=== PATIENT | female | born 1965 | race Caucasian/White ===

== ENCOUNTER 2024-06-27 08:44 | Emergency (ER) | payer MEDICARE, MEDICAID, SELFPAY ==
[2024-06-27 08:54] VITALS: BP 158/73; PULSE 81; RESP 16; TEMP 36.7; O2SAT 98
--- NOTE | 2024-06-27 08:59 | ED.FEMALEGU ---
HPI - Female Genitourinary General Chief complaint: Urogenital-Female Stated complaint: Urinary Problem Time Seen by Provider: 06/27/24 09:13 Source: patient and RN notes reviewed Mode of arrival: ambulatory Limitations: no limitations History of Present Illness HPI Narrative: 58 year old female presents with concern for 4 day history of urinary tract infection symptoms. Reports burning with urination. She reports history of urinary tract infections. She reports nausea without vomiting. She reports headache. She reports low back pain. She denies abdominal pain, fever. MD elicited complaint: UTI Related Data Home Medications ?Medication ?Instructions ?Recorded ?Confirmed ?Last Taken ?Type albuterol sulfate 90 mcg/actuation inhalation 06/27/24 Unknown History aerosol inhaler azelastine 137 mcg (0.1 %) nasal intranasal 06/27/24 Unknown History spray buspirone 7.5 mg tablet mg 06/27/24 Unknown History cetirizine 10 mg tablet mg 06/27/24 Unknown History famotidine 20 mg tablet mg 06/27/24 Unknown History fluticasone propionate 50 intranasal 06/27/24 Unknown History mcg/actuation nasal spray,suspension furosemide 20 mg tablet mg 06/27/24 Unknown History insulin glargine 100 unit/mL (3 unit subcut 06/27/24 Unknown History mL) subcutaneous pen (Lantus Solostar U-100 Insulin) lactulose 10 gram/15 mL oral 06/27/24 Unknown History solution levothyroxine 50 mcg tablet mcg 06/27/24 Unknown History melatonin 5 mg tablet mg 06/27/24 Unknown History metformin 1,000 mg tablet mg 06/27/24 Unknown History nadolol 20 mg tablet mg 06/27/24 Unknown History pantoprazole 40 mg tablet,delayed mg PO 06/27/24 Unknown History release pramipexole 0.5 mg tablet mg 06/27/24 Unknown History rifaximin 550 mg tablet (Xifaxan) mg 06/27/24 Unknown History semaglutide 0.25 mg or 0.5 mg (2 mg subcut 06/27/24 Unknown History mg/3 mL) subcutaneous pen injector (Ozempic) spironolactone 100 mg tablet mg 06/27/24 Unknown History Allergies Allergy/AdvReac Type Severity Reaction Status Date / Time hydrocodone Allergy Unknown Verified 04/15/20 09:00 tramadol Allergy Unknown Verified 04/15/20 09:00 Review of Systems Review of Systems: CONSTITUTIONAL: Denies malaise, chills, sweats, or fever. CARDIOVASCULAR: Denies chest pain, palpitations, or edema. RESPIRATORY: Denies cough or dyspnea. GASTROINTESTINAL: Denies abdominal pain, nausea, vomiting, diarrhea GENITOURINARY: Reports dysuria. Denies flank pain or hematuria. SKIN: Denies rash or itching. MUSCULOSKELETAL: Reports back pain. Denies myalgia. All systems reviewed & are unremarkable except as noted in HPI and below PMFSH Family History Family History (System 04/15/20 @ 09:00 by Betina Mclaughlin) Mother Hypertension Grandparent Diabetes mellitus Sibling Family history of thyroid disease Other Asthma Cerebrovascular accident Depression Family history of arthritis Family history of heart disease in male family member before age 55 Social History Social History (System 04/15/20 @ 09:00 by Betina Mclaughlin) Smoking status: Never smoker Second hand tobacco smoke exposure: Yes Alcohol intake: current Comments At time of signature, agree with nursing past medical, surgical, social and family history. There is no relevant family history pertinent to the presenting complaint Exam Narrative: GENERAL: Well-appearing, well-nourished, and in no acute distress. HEAD: Normocephalic. EYES: PERRLA, conjunctivae clear. NECK: Supple. No lymphadenopathy CHEST: Clear to auscultation. No respiratory distress. HEART: Regular rate and rhythm. ABDOMEN: Soft, nontender upon palpation, nondistended, normal active bowel sounds, no palpable or pulsatile masses, no guarding. Bilateral CVA tenderness SKIN: Warm, dry, no rash. NEURO: Alert and oriented x3. PSYCH: Normal mood and affect Course Course Emergency Course: Patient is aware of diagnosis, understands and agrees to treatment plan. Anticipatory guidance given. Patient agrees to follow-up as directed and is aware of reasons to seek care at the emergency department. Portions of this record may have been created with voice recognition software Level of Care: Express Care Visit Vital Signs Vital signs: Vital Signs Temperature 98.0 F 06/27/24 08:54 Pulse Rate 81 06/27/24 08:54 Respiratory Rate 16 06/27/24 08:54 Blood Pressure 158/73 H 06/27/24 08:54 Pulse Oximetry 98 06/27/24 08:54 Oxygen Delivery Room Air 06/27/24 08:54 Temperature 98.0 F 06/27/24 08:54 Pulse Rate 81 06/27/24 08:54 Respiratory Rate 16 06/27/24 08:54 Blood Pressure 158/73 H 06/27/24 08:54 Pulse Oximetry 98 06/27/24 08:54 Oxygen Delivery Room Air 06/27/24 08:54 Reviewed. MDM - Female Genitourinary MDM Narrative Medical decision making narrative: Exam findings and UA show no acute concerns or changes; patient is non-toxic appearing and is in no distress. Patient is appropriate for outpatient treatment and follow-up. Differential Diagnosis Differential diagnosis: Likely urinary tract infection and cystitis Critical Care Time Critical Care Time Critical Care Time: No Discharge Plan Discharge Clinical Impression: Urinary tract infection Patient Disposition: Home Condition: Stable Instructions: Antibiotic Form, Urinary Tract Infection in Women (ED) Additional Instructions: We will send a urine culture to the lab; if the culture identifies an organism that the prescribed antibiotic will not treat, you will receive a phone call from an urgent care staff member and an appropriate antibiotic will be prescribed. -Your symptoms should begin to improve within a day of starting antibiotics. But you should finish all the antibiotic pills you get. Otherwise your infection might come back. -Also recommend: increase water intake. Tylenol/ibuprofen as needed for pain or fever -Follow-up with your primary care provider for urine recheck or seek ER visit if condition worsens with high fever, nausea, vomiting and severe back pain. Patient Language: Upper Sorbian Prescriptions: New ciprofloxacin HCl 500 mg tablet 500 mg PO Q12H 5 Days Qty: 10 0RF No Action cetirizine 10 mg tablet spironolactone 100 mg tablet pramipexole 0.5 mg tablet nadolol 20 mg tablet famotidine 20 mg tablet levothyroxine 50 mcg tablet pantoprazole 40 mg tablet,delayed release (DR/EC) PO metformin 1,000 mg tablet buspirone 7.5 mg tablet furosemide 20 mg tablet azelastine 137 mcg (0.1 %) spray,non-aerosol INTRANASAL albuterol sulfate 90 mcg/actuation HFA aerosol inhaler INHALATION fluticasone propionate 50 mcg/actuation spray,suspension INTRANASAL lactulose 10 gram/15 mL solution insulin glargine [Lantus Solostar U-100 Insulin] 100 unit/mL (3 mL) insulin pen SUBCUT melatonin 5 mg tablet Xifaxan 550 mg tablet Ozempic 0.25 mg or 0.5 mg (2 mg/3 mL) pen injector SUBCUT Follow-up/Referrals: UNKNOWN,DOCTOR [Primary Care Provider] - Time of Disposition: 09:19
--- OUTSIDE RECORDS SUMMARY | 2024-06-27 08:59 | XMS_ITS | Encounter Summary ---
Author Organization [facility] Address [address] [place] [address] Phone Care Team Providers Care Drive Tester Name Role Phone Vaughn Bradshaw MD Primary Care Provider [phone] Claudia Horn APRN Unavailable Vicenta Raymond DO Unavailable Gus Chowdary MD Unavailable Kasey Williamson DO Primary Care Provider [phone] Virginie Reyes RN Unavailable Unavailable Virginie Reyes RN Unavailable Unavailable Virginie Reyes RN Unavailable Unavailable Kelley Lopez PUBLIC AREA ATTENDANT, RECEIVING TELLER Unavailable [phone]- [phone] Reason for Visit * Reason Comments Medication Refill Encounter Details Date Type Department Care Team (Late st Contact Info) Description 06/18/2021 Refill [facility]2 [place] [address] Vaughn Bradshaw MD #1 [place] [address] Medication Refill Social History Tobacco Use Types Packs/Day Years Used Date Smoking Tobacco: Never Smokeless Tobacco: Never Alcohol Use Standard Drinks/Week Comments No 0 (1 standard drink = 0.6 oz pur e alcohol) PHQ-2 Answer Date Recorded Total Score - Questions 1-9 0 09/19 Education Answer Date Recorded What is the highest level of school you have completed or the highest degree you have received? Associate degree: academic program 10/01/2020 Sexually Active Control Partners Comments Not Currently Male Comments No Sex and Gender Information Value Date Recorded Sex Assigned at Not on file Legal Sex Female 10:13 AM CDT Gender Identity Not on file Sexual Orientation Not on file Occupation Industry Job Start Date Job End Date Disabled Not on file Not on file Not on file COVID-19 Exposure Response Date Recorded In the last 10 days, have yo u been in contact with someone who was confirmed or suspected to have Coronavirus/COVID-19? No / Unsure 06/19/2021 10:33 AM CDT documented as of this encounter Miscellaneous Notes * Telephone Encounter - Maria T Alejandre RN - 06/18/2021 1:09 PM CDT Medication warning Per nursing clinical judgement, provider to review and approve the medication(s) order(s) if appropriate. Requested Prescriptions Pending Prescriptions Disp Refills triamterene-hydrochlorothiazide (MAXZIDE) 75-50 MG Tablet [Pharmacy Med Name: TRIAMTERENE 75MG/ HCTZ 50MG TABLETS] 45 Tablet 0 Sig: TAKE 1/2 TABLET BY MOUTH DAILY Diuretics Protocol Passed - 06/18/2021 3:55 AM Passed - Serum potassium on record in past 12 months POTASSIUM Date Value Ref Range Status 02/21/2021 3.8 3.5 - 5.1 mmol/L Final Passed - Serum sodium on record in past 12 months SODIUM Date Value Ref Range Status 02/21/2021 139 136 - 144 mmol/L Final Passed - Blood pressure on record in past 12 months Clinician-entered: BP Readings from Last 3 Encounters: 03/31/21 (!) 154/92 03/03/21 150/85 02/24/21 132/58 Patient-entered: No data recorded Passed - Visit with relevant provider in past 12 months or upcoming 90 days Recent Visits Date Type Provider Dept 04/21/21 Telemedicine Monae Jorgensen APRN, RECEIVING TELLER [facility] 02/24/21 Office Visit Vaughn Bradshaw MD [facility] 01/20/21 Office Visit Vaughn Bradshaw MD [facility] 12/09/20 Office Visit Vaughn Bradshaw MD [facility] 11/28/20 Telemedicine Vaughn Bradshaw MD [facility] 10/03/20 Office Visit Vaughn Bradshaw MD [facility] Showing recent visits within past 365 days and meeting all other requirements Future Appointments No visits were found meeting these conditions. Showing future appointments within next 90 days and meeting all other requirements Passed - GFR on record in past 12 months GFR, EST. NONAFRICAN Date Value Ref Range Status 02/21/2021 52 (L) >=60 Final citalopram (CeleXA) 20 MG Tablet [Pharmacy Med Name: CITALOPRAM 20MG TABLETS] 90 Tablet 1 Sig: TAKE 1 TABLET BY MOUTH DAILY Citalopram (Celexa) (6 Month Refill Only) Protocol Passed - 06/18/2021 3:55 AM Passed - Citalopram dose is less than or equal to 40mg / day Passed - Visit with relevant provider in past 6 months or upcoming 90 days Recent Visits Date Type Provider Dept 04/21/21 Telemedicine Monae Jorgensen APRN, [facility] 02/24/21 Office Visit Vaughn Bradshaw MD [facility] 01/20/21 Office Visit Vaughn Bradshaw MD [facility] Showing recent visits within past 182 days and meeting all other requirements Future Appointments No visits were found meeting these conditions. Showing future appointments within next 90 days and meeting all other requirements Passed - Patient has established therapy with Citalopram for at least 6 months Passed - Has an encounter in the past 6 months with a depression, anxiety, adjustment disorder, OCD, or PTSD visit diagnosis documented in this encounter Plan of Treatment Not on file documented as of this encounter Visit Diagnoses Diagnosis Anxiety and depression Dysthymic disorder documented in this encounter Additional Health Concerns Infection Onset Date Last Indicated Resolved Time COVID - 19 01/14/2022 01/14/2022 01/15/2022 7:59 AM CDT Respiratory Rule-Out 01/14/2022 01/14/2022 022 8:08 AM CDT COVID - 19 11/15/2023 11/15/2023 11/15/2023 11:4 7 PM CDT Assessment Noted Time PHQ-9 Depression Total Score: 0 10/04/19 9:00 AM CDT documented as of this encounter Care Teams Drive Tester Relationship Specialty Start Date End Date Vaughn Bradshaw MD PCP - General Family Medicine 05/18/18 08/26/23 Kasey Williamson DO 2 [facility] FER [facility] [address] [place] [address] PCP - General Family Medicine 09/14/23 Claudia Horn APRN [address] [place] [address] Advanced Practice Nurse 08/16/18 Vicenta Raymond DO [facility] [address] [place] [address] Consulting Physician Obstetrics & Gynecology 09/25/21 Gus Chowdary MD #2 [facility] [address] [place] [address] Consulting Physician Colon and Rectal Surgery 07/23/22 Virginie Reyes, RN [place] Nurse Stogy Maker 09/14/23 09/14/23 Virginie Reyes, RN [place] Nurse Stogy Maker 11/19/23 11/29/23 Virginie Reyes, RN [place] Nurse Stogy Maker 12/07/23 05/15/24 Kelley Lopez APRN, RECEIVING TELLER #2 [facility] [address] [place] [address] Nurse Practitioner Advanced Practice Nurse 12/09/23 02/22/24 documented as of this encounter
--- OUTSIDE RECORDS SUMMARY | 2024-06-27 08:59 | XMS_ITS | Encounter Summary ---
Author Organization [facility] Address [address] [place] [address] Phone Care Team Providers Care License Examiner Name Role Phone Vaughn Bradshaw MD Primary Care Provider [phone] Claudia Horn APRN Unavailable Vicenta Raymond DO Unavailable Gus Chowdary MD Unavailable Kasey Williamson DO Primary Care Provider [phone] Virginie Reyes RN Unavailable Unavailable Virginie Reyes RN Unavailable Unavailable Virginie Reyes RN Unavailable Unavailable Kelley Lopez BREAST BUFFER, GELATIN DYNAMITE PACKING OPERATOR Unavailable [phone] Reason for Visit * Reason Comments Medication Refill Encounter Details Date Type Department Care Team (Late st Contact Info) Description 04/18/2023 Refill [facility] [address] [place] [address] Monae Jorgensen APRN, GELATIN DYNAMITE PACKING OPERATOR [address] [address] Medication Refill Social History Tobacco Use Types Packs/Day Years Used Date Smoking Tobacco: Never Smokeless Tobacco: Never Alcohol Use Standard Drinks/Week Comments No 0 (1 standard drink = 0.6 oz pur e alcohol) [facility] Utilities Answer Date Recorded In the past 12 months has th e electric, gas, oil, or water company threatened to shut off services in your home? Yes 03/21/2023 Social Connection and Isolat ion Panel [NHANES] Answer Date Recorded In a typical week, how many times do you talk on the phone with family, friends, or neighbors? More than three times a week 03/21/2023 How often do you get togethe r with friends or relatives? More than three times a week 03/21/2023 How often do you attend chur ch or hoahaoism services? Never 03/21/2023 Do you belong to any clubs o r organizations such as confucianist groups, unions, fraternal or athletic groups, or school groups? No 03/21/2023 How often do you attend meet ings of the clubs or organizations you belong to? Never 03/21/2023 Are you , , di vorced, , never , or living with a partner? 03/21/2023 AUDIT-C Answer Date Recorded Q1: How often do you have a drink containing alcohol? Never 03/21/2023 Q2: How many drinks containi ng alcohol do you have on a typical day when you are drinking? Patient does not drink Q3: How often do you have si x or more drinks on one occasion? Never 03/21/2023 Overall Financial Resource Strain (CARDIA) Answe r Date Recorded How hard is it for you to pa y for the very basics like food, housing, medical care, and heating? Not very hard 03/21/2023 PHQ-2 Answer Date Recorded Total Score - Questions 1-9 2 04/2023 [facility] of Occupat ional Health - Occupational Stress Questionnaire Answer Date Recorded Do you feel stress - tense, restless, nervous, or anxious, or unable to sleep at night because your mind is troubled all the time - these days? To some extent 03/21/2023 Exercise Vital Sign Answer Date Recorde d On average, how many days pe r week do you engage in moderate to strenuous exercise (like a brisk walk)? 0 days 03/21/2023 On average, how many minutes do you engage in exercise at this level? 0 min 03/21/2023 Hunger Vital Sign Answer Date Recorded Within the past 12 months, y ou worried that your food would run out before you got the money to buy more. Sometimes true Within the past 12 months, t he food you bought just didn't last and you didn't have money to get more. Sometimes true PRAPARE - Transportation Answer Date Re corded In the past 12 months, has l ack of transportation kept you from medical appointments or from getting medications? Yes 02/21 In the past 12 months, has l ack of transportation kept you from meetings, work, or from getting things needed for daily living? No 03/21/2023 Housing Stability Vital Sign Answer Jose e Recorded In the last 12 months, was t here a time when you were not able to pay the mortgage or rent on time? No 03/21/2023 In the last 12 months, how many places have you lived? 1 03/21/2023 In the last 12 months, was t here a time when you did not have a steady place to sleep or slept in a snf (including now)? No 03/21/2023 Education Answer Date Recorded What is the highest level of school you have completed or the highest degree you have received? Associate degree: academic program 10/01/2020 Sexually Active Control Partners Comments Not Currently Surgical Male Comments No Sex and Gender Information Value Date Recorded Sex Assigned at Not on file Legal Sex Female 10:13 AM CDT Gender Identity Not on file Sexual Orientation Not on file Occupation Industry Job Start Date Job End Date Disabled Not on file Not on file Not on file documented as of this encounter Miscellaneous Notes * Telephone Encounter - Maria T Alejandre RN - 04/19/2023 10:50 AM CST Images from the original note were not included. FLUoxetine HCl Dispensed Days Supply Quantity Provider Pharmacy FLUOXETINE 20MG CAPSULES 03/01/2023 90 90 Each Monae Jorgensen APRN, GELATIN DYNAMITE PACKING OPERATOR [facility] #... GATION ATTORNEY ASSOCIATE documented in this encounter Plan of Treatment Not on file documented as of this encounter Visit Diagnoses Diagnosis Moderate episode of recurrent major depressive disorder (HCC) documented in this encounter Additional Health Concerns Infection Onset Date Last Indicated Resolved Time COVID - 19 11/15/2023 11/15/2023 11/15/2023 11:4 7 PM CDT Assessment Noted Time PHQ-9 Depression Total Score: 2 03/23/19 24 8:19 AM LITIGATION ATTORNEY ASSOCIATE documented as of this encounter Care Teams License Examiner Relationship Specialty Start Date End Date Vaughn Bradshaw MD PCP - General Family Medicine 05/18/18 08/26/23 Kasey Williamson DO 2 [email or web address] FER [facility]. [address] [place] [address] PCP - General Family Medicine 09/14/23 Claudia Horn APRN [address] [place] [address] Advanced Practice Nurse 08/16/18 Vicenta Raymond DO [facility] [address] [place] [address] Consulting Physician Obstetrics & Gynecology 09/25/21 Gus Chowdary MD #[address] [facility] [address] [place] [address] Consulting Physician Colon and Rectal Surgery 07/23/22 Virginie Reyes, FAYE [place] Nurse Software Product Manager 09/14/23 09/14/23 Virginie Reyes, RN [place] Nurse Software Product Manager 11/19/23 11/29/23 Virginie Reyes, RN [place] Nurse Software Product Manager 12/07/23 05/15/24 Kelley Lopez APRN, GELATIN DYNAMITE PACKING OPERATOR #2 [facility] [address] [place] [address] Nurse Practitioner Advanced Practice Nurse 12/09/23 02/22/24 documented as of this encounter
--- OUTSIDE RECORDS SUMMARY | 2024-06-27 08:59 | XMS_ITS | Encounter Summary ---
Author Organization [facility] Address [address] [place] [address] Phone Care Team Providers Care Soil Technician Name Role Phone Vaughn Bradshaw MD Primary Care Provider [phone] Claudia Horn APRN Unavailable Vicenta Raymond DO Unavailable Gus Chowdary MD Unavailable Kasey Williamson DO Primary Care Provider [phone] Virginie Reyes RN Unavailable Unavailable Virginie Reyes RN Unavailable Unavailable Virginie Reyes RN Unavailable Unavailable Kelley Lopez PRESCHOOL ASSISTANT, COMMERCIAL OR INSTITUTIONAL CLEANER Unavailable [phone] Reason for Visit * Reason Comments Medication Refill Encounter Details Date Type Department Care Team (Late st Contact Info) Description 02/27/2021 Refill [facility] #2 [place] [address] Vaughn Bradshaw MD #[address] [place] [address] Medication Refill Social History Tobacco Use Types [...] Exposure Response Date Recorded In the last month, have you been in contact with someone who was confirmed or suspected to have Coronavirus / COVID-19? No / Unsure 02/24/2021 1:00 PM COLLEGE ARCHIVIST documented as of this encounter Miscellaneous Notes * Telephone Encounter - Maria T Alejandre RN - 02/28/2021 8:15 AM CST Medication failed the protocol, provider to review and approve the medication order if appropriate. Requested Prescriptions Pending Prescriptions Disp Refills busPIRone HCl 7.5 MG Tablet [Pharmacy Med Name: BUSPIRONE 7.5MG TABLETS] 180 Tablet 2 Sig: TAKE 1 TABLET(7.5 MG) BY MOUTH TWICE DAILY Buspirone (6 Month Refill Only) Protocol Failed - 02/27/2021 3:55 AM Failed - Patient has established therapy with Buspirone for at least 6 months Passed - Visit with relevant provider in past 6 months or upcoming 90 days Recent Visits Date Type Provider Dept 02/24/21 Office Visit Vaughn Bradshaw MD [facility] 01/20/21 Office Visit Vaughn Bradshaw MD [facility] 12/09/20 Office Visit Vaughn Bradshaw MD [facility] 11/28/20 Telemedicine Vaughn Bradshaw MD [facility] 10/03/20 Office Visit Vaughn Bradshaw MD [facility] Showing recent visits within past 182 days and meeting all other requirements Future Appointments Date Type Provider Dept 04/22/21 Appointment Vaughn Bradshaw MD [facility] Showing future appointments within next 90 days and meeting all other requirements Passed - Has an encounter in the past 6 months with a depression or anxiety visit diagnosis EGE ARCHIVIST documented in this encounter Plan of Treatment Not on file documented as of this encounter Visit Diagnoses Diagnosis Anxiety and depression Dysthymic disorder documented in this encounter Additional Health Concerns Infection Onset Date Last Indicated Resolved Time COVID - 19 03/31/2021 03/31/2021 03/31/2021 9:59 PM COLLEGE ARCHIVIST COVID - 19 Confirmed 03/31/2021 03/31/2021 022 12:16 AM COLLEGE ARCHIVIST COVID - 19 01/14/2022 01/14/2022 01/15/2022 7:59 AM CDT Respiratory Rule-Out 01/14/2022 01/14/2022 022 8:08 AM CDT COVID - 19 11/15/2023 11/15/2023 11/15/2023 11:4 7 PM CDT Assessment Noted Time PHQ-9 Depression Total Score: 0 10/04/19 21 9:00 AM CDT documented as of this encounter Care Teams Soil Technician Relationship Specialty Start Date End Date Vaughn Bradshaw MD PCP - General Family Medicine 05/18/18 08/26/23 Kasey Williamson DO 2 [facility] [address] [place] [address] PCP - General Family Medicine 09/14/23 Claudia Horn, PRESCHOOL ASSISTANT [address] [place] [address] Advanced Practice Nurse 08/16/18 Vicenta Raymond [place] [address] Consulting Physician Obstetrics & Gynecology 09/25/21 Gus Chowdary MD #[address] [facility] [address] [place] [address] Consulting Physician Colon and Rectal Surgery 07/23/22 Virginie Reyes, RN [place] Nurse Casing Crew 09/14/23 09/14/23 Virginie Reyes, RN [place] Nurse Casing Crew 11/19/23 11/29/23 Virginie Reyes, RN [place] Nurse Casing Crew 12/07/23 05/15/24 Kelley Lopez, PRESCHOOL ASSISTANT, COMMERCIAL OR INSTITUTIONAL CLEANER #[address] [facility] [place] [address] Nurse Practitioner Advanced Practice Nurse 12/09/23 02/22/24 documented as of this encounter
--- OUTSIDE RECORDS SUMMARY | 2024-06-27 08:59 | XMS_ITS | Encounter Summary ---
Author Organization [facility] Address [address] [place] [address] Phone Care Team Providers Care Drapery Maker Name Role Phone Vaughn Bradshaw MD Primary Care Provider [phone] Claudia Horn APRN Unavailable [phone] Vicenta Raymond DO Unavailable Gus Chowdary MD Unavailable Kasey Williamson DO Primary Care Provider [phone] Virginie Reyes RN Unavailable Unavailable Virginie Reyes RN Unavailable Unavailable Virginie Reyes RN Unavailable Unavailable Kelley Lopez ROPE MAKING MACHINE OPERATOR, OIL SPECULATOR Unavailable [phone] Reason for Visit * Reason Comments Medication Refill Encounter Details Date Type Department Care Team (Late st Contact Info) Description 08/25/2023 Refill [facility] #2 [place] [address] Vaughn Bradshaw MD #[address] [place] [address] Medication Refill Social History Tobacco Use Types Packs/Day Years Used Date Smoking Tobacco: Never Smokeless Tobacco: Never Alcohol Use Standard Drinks/Week Comments No 0 (1 standard drink = 0.6 oz pur e alcohol) [facility] Utilities Answer Date Recorded In the past 12 months has e electric, gas, oil, or water company threatened to shut off services in your home? Yes 08/04/2023 Social Connection and Isolat ion Panel [NHANES] Answer Date Recorded In a typical week, how many times do you talk on the phone with family, friends, or neighbors? Once a week 08/04/2023 How often do you get togethe r with friends or relatives? More than three times a week 08/04/2023 How often do you attend chur ch or mormon services? Never 08/04/2023 Do you belong to any clubs o r organizations such as yazidism groups, unions, fraternal or athletic groups, or school groups? No 08/04/2023 How often do you attend meet ings of the clubs or organizations you belong to? Patient declined 08/04/2023 Are you , , di vorced, , never , or living with a partner? 08/04/2023 AUDIT-C Answer Date Recorded Q1: How often do you have a drink containing alcohol? Never 08/04/2023 Q2: How many drinks containi ng alcohol do you have on a typical day when you are drinking? Patient does not drink Q3: How often do you have si x or more drinks on one occasion? Never 08/04/2023 Overall Financial Resource Strain (CARDIA) Answe r Date Recorded How hard is it for you to pa y for the very basics like food, housing, medical care, and heating? Patient declined 08/04/2023 PHQ-2 Answer Date Recorded Total Score - Questions 1-9 2 04/2023 [facility] of Occupat ional Health - Occupational Stress Questionnaire Answer Date Recorded Do you feel stress - tense, restless, nervous, or anxious, or unable to sleep at night because your mind is troubled all the time - these days? Not at all 08/04/2023 Exercise Vital Sign Answer Date Recorde d On average, how many days pe r week do you engage in moderate to strenuous exercise (like a brisk walk)? 1 day 08/04/2023 On average, how many minutes do you engage in exercise at this level? 10 min 08/04/2023 Hunger Vital Sign Answer Date Recorded Within [...] from medical appointments or from getting medications? No 07/20 In the past 12 months, has l ack of transportation kept you from meetings, work, or from getting things needed for daily living? No 08/04/2023 Housing Stability Vital Sign Answer Jose e Recorded In the last 12 months, was t here a time when you were not able to pay the mortgage or rent on time? No 08/04/2023 In the last 12 months, how many places have you lived? 1 08/04/2023 In the last 12 months, was t here a time when you did not have a steady place to sleep or slept in a half-way (including now)? No 08/04/2023 Education Answer Date Recorded What is the [...] Encounter - Maria T Alejandre RN - 08/25/2023 9:59 AM CDT Medication failed the protocol, provider to review and approve the medication order if appropriate. Requested Prescriptions Pending Prescriptions Disp Refills metFORMIN (GLUCOPHAGE) 1000 MG Tablet [Pharmacy Med Name: METFORMIN 1000MG TABLETS] 180 Tablet 1 Sig: TAKE 1 TABLET BY MOUTH TWICE DAILY WITH MEALS Biguanides Protocol Failed - 08/25/2023 7:37 AM Failed - HgA1C on record in past 6 months HGB-A1C Date Value Ref Range Status 12/07/2022 5.5 4 - 6 % Final Failed - GFR on record in past 6 months GFR, EST. NONAFRICAN Date Value Ref Range Status 12/07/2022 59 (L) >=60 Final Passed - Visit with relevant provider in past 6 months or upcoming 90 days Recent Visits Date Type Provider Dept 05/04/23 Office Visit Monae Jorgensen APRN, FIGUEROA [facility] 03/23/23 Office Visit Monae Jorgensen APRN, FIGUEROA [facility] 03/01/23 Office Visit Monae Jorgensen APRN, FIGUEROA [facility] Showing recent visits within past 182 days and meeting all other requirements Future Appointments Date Type Provider Dept 09/14/23 Appointment Kasey Williamson DO [facility] Showing future appointments within next 90 days and meeting all other requirements documented in this encounter Plan of Treatment Not on file documented as of this encounter Visit Diagnoses Diagnosis Type 2 diabetes mellitus with hyperglycemia, with long-term current use of insulin (HCC) documented in this encounter Additional Health Concerns Infection Onset Date Last Indicated Resolved Time COVID - 19 11/15/2023 11/15/2023 11/15/2023 11:4 7 PM CDT Assessment Noted Time PHQ-9 Depression Total Score: 2 03/23/19 24 8:19 AM LABORER CEMENT GUN PLACING documented as of this encounter Care Teams Drapery Maker Relationship Specialty Start Date End Date Vaughn Bradshaw MD PCP - General Family Medicine 05/18/18 08/26/23 Kasey Williamson DO [address] [facility] [address] [address] PCP - General Family Medicine 09/14/23 Claudia Horn APRN [address] [place] [address] Advanced Practice Nurse 08/16/18 Vicenta Raymond DO [facility] [address] [place] [address] Consulting Physician Obstetrics & Gynecology 09/25/21 Gus Chowdary MD #2 [facility] [address] [place] [address] Consulting Physician Colon and Rectal Surgery 07/23/22 Virginie Reyes, RN [place] Nurse Slice Cutting Machine Operator Helper 09/14/23 09/14/23 Virginie Reyes, RN [place] Nurse Slice Cutting Machine Operator Helper 11/19/23 11/29/23 Virginie Reyes, RN [place] Nurse Slice Cutting Machine Operator Helper 12/07/23 05/15/24 Kelley Lopez, ROPE MAKING MACHINE OPERATOR, OIL SPECULATOR #2 [facility] [address] [place] [address] Nurse Practitioner Advanced Practice Nurse 12/09/23 02/22/24 documented as of this encounter
--- OUTSIDE RECORDS SUMMARY | 2024-06-27 08:59 | XMS_ITS | Encounter Summary ---
Author Organization [facility] Address [address] [place] [address] Phone Care Team Providers Care Neurology Physician Assistant Name Role Phone Vaughn Bradshaw MD Primary Care Provider [phone] Claudia Horn APRN Unavailable Vicenta Raymond DO Unavailable Gus Chowdary MD Unavailable Kasey Williamson DO Primary Care Provider [phone] Virginie Reyes RN Unavailable Unavailable Virginie Reyes RN Unavailable Unavailable Virginie Reyes RN Unavailable Unavailable Kelley Lopez GLOBAL CLIMATE CHANGE RESEARCHER, LITERACY COACH Unavailable [phone] Reason for Visit * Reason Comments Medication Refill Encounter Details Date Type Department Care Team (Late st Contact Info) Description 03/02/2021 [facility]ill [facility] [address] [place] [address] Vaughn Bradshaw MD #[address] [place] [address] Medication Refill Social History Tobacco Use Types [...] have Coronavirus / COVID-19? No / Unsure 03/03/2021 1:05 PM ORTHOPAEDIC DOCTOR documented as of this encounter Miscellaneous Notes * Telephone Encounter - Maria T Alejandre RN - 03/03/2021 11:24 AM CST Last appt 02/24/21 - Refills? Medication failed the protocol, provider to review and approve the medication order if appropriate. Requested Prescriptions Pending Prescriptions Disp Refills traZODone (DESYREL) 100 MG Tablet [Pharmacy Med Name: TRAZODONE 100MG TABLETS] 30 Tablet Sig: TAKE 1 TABLET BY MOUTH EVERY NIGHT Serotonin Modulators (6 Month Refill Only) Protocol Failed - 03/02/2021 12:05 PM Failed - Patient has established therapy with Serotonin Modulators for at least 6 months Passed - [...] with a depression or anxiety visit diagnosis Passed - No PRN Use for Trazodone OPAEDIC DOCTOR documented in this encounter Plan of Treatment Not on file documented as of this encounter Visit Diagnoses Diagnosis Anxiety and depression Dysthymic disorder documented in this encounter Additional Health Concerns Infection Onset Date Last Indicated Resolved Time COVID - 19 03/31/2021 03/31/2021 03/31/2021 9:59 PM ORTHOPAEDIC DOCTOR COVID - 19 Confirmed 03/31/2021 03/31/2021 022 12:16 AM ORTHOPAEDIC DOCTOR COVID - 19 01/14/2022 01/14/2022 01/15/2022 7:59 AM CDT Respiratory Rule-Out 01/14/2022 01/14/2022 022 8:08 AM CDT COVID - 19 11/15/2023 11/15/2023 11/15/2023 11:4 7 PM CDT Assessment Noted Time PHQ-9 Depression Total Score: 0 10/04/19 21 9:00 AM CDT documented as of this encounter Care Teams Neurology Physician Assistant Relationship Specialty Start Date End Date Vaughn Bradshaw MD PCP - General Family Medicine 05/18/18 08/26/23 Kasey Williamson DO [address] [place] [address] PCP - General Family Medicine 09/14/23 Claudia Horn, GLOBAL CLIMATE CHANGE RESEARCHER [address] [place] [address] Advanced Practice Nurse 08/16/18 Vicenta [place] [address] Consulting Physician Obstetrics & Gynecology 09/25/21 Gus Chowdary MD [address] [place] [address] Consulting Physician Colon and Rectal Surgery 07/23/22 Virginie Reyes RN [place] Nurse Land Department Head 09/14/23 09/14/23 Virginie Reyes, RN [place] Nurse Land Department Head 11/19/23 11/29/23 Virginie Reyes, RN [place] Nurse Land Department Head 12/07/23 05/15/24 Kelley Lopez, GLOBAL CLIMATE CHANGE RESEARCHER, LITERACY COACH [address], [address] [place] [address] Nurse Practitioner Advanced Practice Nurse 12/09/23 02/22/24 documented as of this encounter
--- OUTSIDE RECORDS SUMMARY | 2024-06-27 08:59 | XMS_ITS | Encounter Summary ---
Author Organization [facility] Address [address] [place] [address] Phone Care Team Providers Care Aircraft Design Engineer Name Role Phone Claudia Horn APRN Unavailable [phone] Vicenta Raymond DO Unavailable [phone] Gus Chowdary MD Unavailable Kasey Williamson DO Primary Care Provider [phone] Virginie Reyes RN Unavailable Unavailable Reason for Visit * Reason Comments Medication Refill Encounter Details Date Type Department Care Team (Late st Contact Info) Description 05/03/2024 Refill [facility] - Family [facility] [address] [place] [address] Vaughn Bradshaw MD [address] [place] [address] Medication Refill Social History Tobacco Use Types Packs/Day Years Used Date Smoking Tobacco: Never Smokeless Tobacco: Never Alcohol Use Standard Drinks/Week Comments No 0 (1 standard drink = 0.6 oz pur e alcohol) [facility] Utilities Answer Date Recorded In the past 12 months has [employer] electric, gas, oil, or water company threatened to shut off services in your home? No 05/06/2024 Social Connection and Isolat ion Panel [NHANES] Answer Date Recorded In a typical week, how many times do you talk on the phone with family, friends, or neighbors? Once a week 05/06/2024 How often do you get togethe r with friends or relatives? More than three times a week 05/06/2024 How often do you attend chur ch or evangelical services? Never 05/06/2024 Do you belong to any clubs o r organizations such as mandaeism groups, unions, fraternal or athletic groups, or school groups? No 05/06/2024 How often do you attend meet ings of the clubs or organizations you belong to? Never 05/06/2024 Are you , , di vorced, , never , or living with a partner? 05/06/2024 AUDIT-C Answer Date Recorded Q1: How often do you have a drink containing alcohol? Never 05/06/2024 Q2: How many drinks containi ng alcohol do you have on a typical day when you are drinking? Patient does not drink Q3: How often do you have si x or more drinks on one occasion? Never 05/06/2024 Overall Financial Resource Strain (CARDIA) Answe r Date Recorded How hard is it for you to pa y for the very basics like food, housing, medical care, and heating? Not hard at all 05/06/2024 PHQ-2 Answer Date Recorded Total Score - Questions 1-9 0 11/20 [facility] Questionnaire Answer Date Recorded Do you feel stress - tense, restless, nervous, or anxious, or unable to sleep at night because your mind is troubled all the time - these days? To some extent 05/06/2024 Exercise Vital Sign Answer Date Recorde d On average, how many days pe r week do you engage in moderate to strenuous exercise (like a brisk walk)? 0 days 05/06/2024 On average, how many minutes do you engage in exercise at this level? 0 min 05/06/2024 Hunger Vital Sign Answer Date Recorded Within the past 12 months, y ou worried that your food would run out before you got the money to buy more. Never true 05/06/19 25 Within the past 12 months, t he food you bought just didn't last and you didn't have money to get more. Never true 05/06/2024 PRAPARE - Transportation Answer Date Re corded In the past 12 months, has l ack of transportation kept you from medical appointments or from getting medications? Yes 04/22 In the past 12 months, has l ack of transportation kept you from meetings, work, or from getting things needed for daily living? No 05/06/2024 Housing Stability Vital Sign Answer Jose e [...] place to sleep or slept in a intermediate (including now)? No 08/04/2023 Housing Stability Vital Sign Answer Jose e Recorded In the last 12 months, was t here a time when you were not able to pay the mortgage or rent on time? No 05/06/2024 In the past 12 months, how m any times have you moved where you were living? 0 05/06/2024 At any time in the past 12 m [facility], were you homeless or living in a intermediate (including now)? Yes 05/06/2024 Education Answer Date Recorded What is the highest level of school you have completed or the highest degree you have received? Associate degree: academic program 10/01/2020 Sexually Active Control Partners Comments Not Currently Abstinence, Post-menopausal, Surgical Ma le Comments No Sex and Gender Information Value Date Recorded Sex Assigned at Not on file Legal Sex Female 10:13 AM CDT Gender Identity Not on file Sexual Orientation Not on file Occupation Industry Job Start Date Job End Date Disabled Not on file Not on file Not on file documented as of this encounter Functional Status * Audit-C Score Answer Date of Assessment Author 0 05/06/2024 10:23 AM [employer] Background * Q1: How often do you have a drink containing alcohol? Answer Date of Assessment Author Never 05/06/2024 10:23 AM [employer] Background * Q2: How many drinks containing alcohol do you have on a typical day when you are drinking? Answer Date of Assessment Author Patient does not drink 05/06/2024 10:23 AM SOAP MIXER M [employer], System Background * Q3: How often do you have six or more drinks on one occasion? Answer Date of Assessment Author Never 05/06/2024 10:23 AM SOAP MIXER Mychart, System Background documented as of this encounter Miscellaneous Notes * Telephone Encounter - Maria T Alejandre RN - 05/03/2024 12:00 PM CST Images from the original note were not included. Pramipexole Dihydrochloride Dispensed Days Supply Quantity Provider Pharmacy PRAMIPEXOLE 0.5MG TABLETS 04/26/2024 90 45 Each Vaughn Bradshaw MD [facility] #... MIXER documented in this encounter Plan of Treatment Not on file documented as of this encounter Visit Diagnoses Diagnosis Restless leg syndrome Restless legs syndrome (RLS) documented in this encounter Additional Health Concerns Assessment Noted Time PHQ-9 Depression Total Score: 0 12/07/19 24 1:29 PM CDT documented as of this encounter Care Teams Aircraft Design Engineer Relationship Specialty Start Date End Date Kasey Williamson DO [address] [place] [address] PCP - General Family Medicine 09/14/23 Claudia Horn, BODY AND FRAME MAN [address] [place] [address] Advanced Practice Nurse 08/16/18 Vicenta Raymond DO [address] [place] [address] Consulting Physician Obstetrics & Gynecology 09/25/21 Gus Chowdary MD #[address] [place] [address] Consulting Physician Colon and Rectal Surgery 07/23/22 Virginie Reyes, RN [place] Nurse Assistant Site Manager 12/07/23 05/15/24 documented as of this encounter
--- OUTSIDE RECORDS SUMMARY | 2024-06-27 08:59 | XMS_ITS | Encounter Summary ---
Author Organization [facility] Address [address] [place] [address] Phone Care Team Providers Care Helper Teacher Name Role Phone Vaughn Bradshaw MD Primary Care Provider [phone] Claudia Horn APRN Unavailable Vicenta Raymond DO Unavailable Gus Chowdary MD Unavailable Kasey Williamson DO Primary Care Provider [phone] Virginie Reyes RN Unavailable Unavailable Virginie Reyes RN Unavailable Unavailable Virginie Reyes RN Unavailable Unavailable Kelley Lopez DRILLING SUPERINTENDENT, BUILDING ESTIMATOR Unavailable [phone] Reason for Visit * Reason Comments Medication Refill Encounter Details Date Type Department Care Team (Late st Contact Info) Description 07/15/2023 Refill [facility] #2 [place] [address] Vaughn Bradshaw MD [address] [place] [address] Medication Refill Social History Tobacco Use Types Packs/Day Years Used Date Smoking Tobacco: Never Smokeless Tobacco: Never Alcohol Use Standard Drinks/Week Comments No 0 (1 standard drink = 0.6 oz pur e alcohol) [facility] Utilities Answer Date Recorded In the past 12 months has e electric, gas, oil, or water company threatened to shut off services in your home? Yes 04/27/2023 Social Connection and Isolat ion Panel [NHANES] Answer Date Recorded In a typical week, how many times do you talk on the phone with family, friends, or neighbors? More than three times a week 04/27/2023 How often do you get togethe r with friends or relatives? More than three times a week 04/27/2023 How often do you attend chur ch or catholic services? Never 04/27/2023 Do you belong to any clubs o r organizations such as religion groups, unions, fraternal or athletic groups, or school groups? No 04/27/2023 How often do you attend meet ings of the clubs or organizations you belong to? Never 04/27/2023 Are you , , di vorced, , never , or living with a partner? 04/27/2023 AUDIT-C Answer Date Recorded Q1: How often do you have a drink containing alcohol? Never 04/27/2023 Q2: How many drinks containi ng alcohol do you have on a typical day when you are drinking? Patient does not drink Q3: How often do you have si x or more drinks on one occasion? Never 04/27/2023 Overall Financial Resource Strain (CARDIA) Answe r Date Recorded How hard is it for you to pa y for the very basics like food, housing, medical care, and heating? Somewhat hard 04/27/2023 PHQ-2 Answer Date Recorded Total Score - Questions 1-9 2 04/2023 [facility] - Occupational Stress Questionnaire Answer Date Recorded Do you feel stress - tense, restless, nervous, or anxious, or unable to sleep at night because your mind is troubled all the time - these days? To some extent 04/27/2023 Exercise Vital Sign Answer Date Recorde d On average, how many days pe r week do you engage in moderate to strenuous exercise (like a brisk walk)? 0 days 04/27/2023 On average, how many minutes do you engage in exercise at this level? 0 min 04/27/2023 Hunger Vital Sign Answer Date Recorded Within the past 12 months, y ou worried that your food would run out before you got the money to buy more. Sometimes true Within the past 12 months, t he food you bought just didn't last and you didn't have money to get more. Sometimes true 08/2023 PRAPARE - Transportation Answer Date Re corded In the past 12 months, has l ack of transportation kept you from medical appointments or from getting medications? Yes 08/2023 In the past 12 months, has l ack of transportation kept you from meetings, work, or from getting things needed for daily living? No 04/27/2023 Housing Stability Vital Sign Answer Jose e Recorded In the last 12 months, was t here a time when you were not able to pay the mortgage or rent on time? No 04/27/2023 In the last 12 months, how many places have you lived? 1 04/27/2023 In the last 12 months, was t here a time when you did not have a steady place to sleep or slept in a snf (including now)? No 04/27/2023 Education Answer Date Recorded What is the [...] encounter Miscellaneous Notes * Telephone Encounter - Araceli Bonilla RN - 07/15/2023 11:46 AM CDT Dispensed Days Supply Quantity Provider Pharmacy triamterene 75 mg-hydrochlorothiazide 50 mg tablet 07/09/2023 90 45 Tablet Vaughn Bradshaw MD [facility] #... documented in this encounter Plan of Treatment Not on file documented as of this encounter Visit Diagnoses Not on filedocumented in this encounter Additional Health Concerns Infection Onset Date Last Indicated Resolved Time COVID - 19 11/15/2023 11/15/2023 11/15/2023 11:4 7 PM CDT Assessment Noted Time PHQ-9 Depression Total Score: 2 03/23/19 8:19 AM AQUATIC HABITAT BIOLOGIST documented as of this encounter Care Teams Helper Teacher Relationship Specialty Start Date End Date Vaughn Bradshaw MD PCP - General Family Medicine 05/18/18 08/26/23 Kasey Williamson DO [address] [facility] [address] [place] [address] PCP - General Family Medicine 09/14/23 Claudia Horn APRN [address] [place], [place] [id number] Advanced Practice Nurse 08/16/18 Vicenta Raymond DO [address] [address] Consulting Physician Obstetrics & Gynecology 09/25/21 Gus Chowdary MD #[address] [facility] [address] [place] [address] Consulting Physician Colon and Rectal Surgery 07/23/22 Virginie Reyes, RN [place] Nurse Photovoltaic Installer 09/14/23 09/14/23 Virginie Reyes, RN [place] Nurse Photovoltaic Installer 11/19/23 11/29/23 Virginie Reyes, RN [place] Nurse Photovoltaic Installer 12/07/23 05/15/24 Kelley Lopez APRN, BUILDING ESTIMATOR [address] [facility] [address] [place] [address] Nurse Practitioner Advanced Practice Nurse 12/09/23 02/22/24 documented as of this encounter
--- OUTSIDE RECORDS SUMMARY | 2024-06-27 08:59 | XMS_ITS | Encounter Summary ---
Author Organization [facility] Address [address] [place] [address] Phone Care Team Providers Care Acid Adjuster Name Role Phone Vaughn Bradshaw MD Primary Care Provider [phone] Claudia Horn APRN Unavailable Vicenta Raymond DO Unavailable Gus Chowdary MD Unavailable Kasey Williamson DO Primary Care Provider [phone] Virginie Reyes RN Unavailable Unavailable Virginie Reyes RN Unavailable Unavailable Virginie Reyes RN Unavailable Unavailable Kelley Lopez PALLIATIVE MEDICINE PHYSICIAN, NATUROPATHIC PHYSICIAN Unavailable [phone] Reason for Visit * Reason Comments Medication Refill Encounter Details Date Type Department Care Team (Late st Contact Info) Description 03/19/2023 Refill [facility] #2 [place] [address] Vaughn Bradshaw MD [address] [place] [address] Medication Refill Social History Tobacco Use Types Packs/Day Years Used Date Smoking Tobacco: Never Smokeless Tobacco: Never Alcohol Use Standard Drinks/Week Comments No 0 (1 standard drink = 0.6 oz pur e alcohol) [facility] Utilities Answer Date Recorded In the [...] often do you attend chur ch or restorationism services? Never 03/21/2023 Do you belong to any clubs o r organizations such as zoroastrianism groups, unions, fraternal or athletic groups, or [...] Total Score - Questions 1-9 2 04/2023 [facility] - [...] place to sleep or slept in a mcfp (including now)? No 03/21/2023 Education Answer Date [...] Score Answer Date of Assessment Author 0 03/21/2023 12:05 PM ELECTRONIC PARTS SALESPERSON [employer], System Background * Within the last year, have you been humiliated or emotionally abused in other ways by your partner or ex-partner? Answer Date of Assessment Author No 03/21/2023 12:05 PM ELECTRONIC PARTS SALESPERSON [employer], System Background * Within the last year, have you been afraid of your partner or ex-partner? Answer Date of Assessment Author No 03/21/2023 12:05 PM ELECTRONIC PARTS SALESPERSON [employer], System Background * Within the last year, have you been raped or forced to have any kind of sexual activity by your partner or ex-partner? Answer Date of Assessment Author No 03/21/2023 12:05 PM ELECTRONIC PARTS SALESPERSON [employer], System Background * Within the last year, have you been kicked, hit, slapped, or otherwise physically hurt by your partner or ex-partner? Answer Date of Assessment Author No 03/21/2023 12:05 PM ELECTRONIC PARTS SALESPERSON Mychart, System Background * Q1: How often do you have a drink containing alcohol? Answer Date of Assessment Author Never 03/21/2023 12:05 PM ELECTRONIC PARTS SALESPERSON [employer], System Background * Q2: How many drinks containing alcohol do you have on a typical day when you are drinking? Answer Date of Assessment Author Patient does not drink 03/21/2023 12:05 PM ELECTRONIC PARTS SALESPERSON Jonny mcguire, System Background * Q3: How often do you have six or more drinks on one occasion? Answer Date of Assessment Author Never 03/21/2023 12:05 PM ELECTRONIC PARTS SALESPERSON [employer], System Background documented as of this encounter Miscellaneous Notes * Telephone Encounter - Maria T Alejandre RN - 03/19/2023 12:50 PM CST Continue current dose of 2 mg weekly? Per nursing clinical judgement, provider to review and approve the medication(s) order(s) if appropriate. Requested Prescriptions Pending Prescriptions Disp Refills semaglutide, 1 MG/DOSE, (Ozempic, 1 MG/DOSE,) 4 MG/3ML Solution Pen-injector [Pharmacy Med Name: OZEMPIC 1MG PER DOSE (4MG/3ML) PFP] 6 mL 0 Si mg by Subcutaneous route once a week. GLP-1 Agonists Protocol Passed - 03/19/2023 10:41 AM Passed - Lipid panel result on file in past 12 months LDL Date Value Ref Range Status 12/07/2022 55 <130 mg/dL Final HDL CHOLESTEROL Date Value Ref Range Status 12/07/2022 32 (L) >40 mg/dL Final CHOLESTEROL Date Value Ref Range Status 12/07/2022 126 <200 mg/dL Final TRIGLYCERIDES Date Value Ref Range Status 12/07/2022 197 (H) <150 mg/dL Final VLDL Date Value Ref Range Status 12/07/2022 39 10 - 50 mg/dL Final CHOL/HDL RATIO Date Value Ref Range Status 12/07/2022 3.9 0.0 - 4.4 Final NON-HDL CHOLESTEROL Date Value Ref Range Status 12/07/2022 94 <130 mg/dL Final Passed - Visit with relevant provider in past 6 months or upcoming 90 days Recent Visits Date Type Provider Dept 03/01/23 Office Visit Monae Jorgensen APRN, [facility] 12/07/22 Office Visit Vaughn Bradshaw MD [facility] Showing recent visits within past 182 days and meeting all other requirements Future Appointments Date Type Provider Dept 03/23/23 Appointment Monae Jorgensen APRN, [facility] Showing future appointments within next 90 days and meeting all other requirements Passed - HgA1C result on record in past 6 months HGB-A1C Date Value Ref Range Status 12/07/2022 5.5 4 - 6 % Final Passed - GFR on record in past 6 months GFR, EST. NONAFRICAN Date Value Ref Range Status 12/07/2022 59 (L) >=60 Final TRONIC PARTS SALESPERSON * Telephone Encounter - Maria T Alejandre RN - 03/19/2023 12:47 PM CST Images from the original note were not included. Semaglutide Dispensed Days Supply Quantity Provider Pharmacy OZEMPIC 1MG PER DOSE (4MG/3ML) [facility] 03/05/2023 14 3 mL [facility]n Bradshaw [facility] [place] [employer] #... OZEMPIC 1MG PER DOSE (4MG/3ML) [facility] 02/22/2023 14 3 mL [facility] MD [facility]... Fill quantity 14 days TRONIC PARTS SALESPERSON documented in this encounter Plan of Treatment Not on file documented as of this encounter Visit Diagnoses Diagnosis Type 2 diabetes mellitus with hyperglycemia, with long-term current use of insulin (HCC) documented in this encounter Additional Health Concerns Infection Onset Date Last Indicated Resolved Time COVID - 19 11/15/2023 11/15/2023 11/15/2023 11:4 7 PM CDT Assessment Noted Time PHQ-9 Depression Total Score: 17 023 10:00 AM ELECTRONIC PARTS SALESPERSON documented as of this encounter Care Teams Acid Adjuster Relationship Specialty Start Date End Date Vaughn Bradshaw MD PCP - General Family Medicine 05/18/18 08/26/23 Kasey Williamson DO 2 [facility] [address] [place] [address] PCP - General Family Medicine 09/14/23 Claudia Horn APRN [address] [place] [address] Advanced Practice Nurse 08/16/18 Vicenta Raymond DO [address] [address] Consulting Physician Obstetrics & Gynecology 09/25/21 Gus Chowdary MD #[facility] [address] [address] [place] [address] Consulting Physician Colon and Rectal Surgery 07/23/22 Virginie Reyes, RN [place] Nurse Rn Charge 09/14/23 09/14/23 Virginie Reyes, RN [place] Nurse Rn Charge 11/19/23 11/29/23 Virginie Reyes, RN [place] Nurse Rn Charge 12/07/23 05/15/24 Kelley Lopez APRN, NATUROPATHIC PHYSICIAN #[address] [facility], [address] [place] [address] Nurse Practitioner Advanced Practice Nurse 12/09/23 02/22/24 documented as of this encounter
--- OUTSIDE RECORDS SUMMARY | 2024-06-27 08:59 | XMS_ITS | Encounter Summary ---
Author Organization [facility] Address [address] [place] [address] Care Team Providers Care Clinical Engineering Director Name Role Phone Kasey Williamson DO Primary Care Provider [phone] Melany Kuhn RN Unavailable Unavailable Encounter Details Date Type Department Care Team (Late Contact Info) Description 09/05/2018 Lab Requisition [facility] Care Pathology Lab [address] [place] [address] Beth Osullivan MD [address] [place] [address] Social History Tobacco Use Types Packs/Day Years Used Date Smoking Tobacco: Never Assessed Sex and Gender Information Value Date Recorded Sex Assigned at Not on file Gender Identity Not on file Sexual Orientation Not on file documented as of this encounter Plan of Treatment Upcoming Encounters Date Type Department Care Team (Late Contact Info) Description 06/29/2024 9:30 AM CDT Office Visit Transitional Care at [facility] [address] [place] [address] 08/28/2024 9:30 AM CDT Office Visit [facility] [address] [facility], [place] [address] Allison Leavitt, HEALTH LEAD-ULTRASONOGRAPHER [address] [facility] [place] [address] 09/25/2024 8:40 AM CDT Office Visit [facility] - Endocrinology [address] [place] [address], [place] [address] Phoebe Joseph MD [address] [place] [address] 2L [place] [address] documented as of this encounter Procedures Procedure Name Priority Date/Time Associated Diagnosis Comments BONE MARROW BIOPSY (STL) Routine 09/02/2018 9:00 AM CDT documented in this encounter Results * BONE MARROW BIOPSY (STL) (09/02/2018 9:00 AM CDT) Case Report Bone Marrow Patholog y Report Case: [id number] Authorizing Provider: Beth Osullivan MD Collected: 09/02/2018 09:00 AM Pathologist: Marii Sims MD Received: 09/05/2018 03:01 PM Specimens: A) - Bone Marrow Core, [id number] B) - Bone Marrow Clot, [id number] C) - Blood Peripheral, [id number] D) - Bone Marrow Aspirate, [id number] 09/06/2018 1:56 PM CDT [facility] PATHOLOGY LAB Final Diagnosis Bone marrow, aspirate, clot section, and core biopsy: - Normocellular marrow with maturing trilineage hematopoiesis. - No evidence of lymphoma or high-grade myeloid neoplasm. - See description. Peripheral blood smear: - Pancytopenia. - See description. 09/06/2018 1:56 PM CDT [facility] PATHOLOGY LAB Comment Overall, the bone marrow specimen is normocellular for age with maturing trilineage hematopoiesis and no evidence of lymphoma, a high-grade myeloid neoplasm, or significant dyspoiesis. Concurrent bone marrow flow cytometry ([id number]) demonstrates no evidence of non-Hodgkin lymphoma or a high-grade myeloid neoplasm. As no clonal or infiltrative process is identified in the marrow, other etiologies which may cause pancytopenia (including infectious, autoimmune/inflammato ry conditions, and nutritional deficiencies) should be further investigated. Correlation with clinical findings and relevant cytogenetic/molecular testing is required. KR/NW 09/06/2018 1:56 PM [facility] Peripheral Smear Description Outside CBC results: WBC = 1.63 K/uL RBC = 3.23 M/uL Plt = 46 K/uL Hgb = 9.9 g/dL Hct = 30.8% MCV = 95.4 fL MCH = 30.7 pg MCHC = 32.1 g/dL RDW = 12.7% Manual Differential Count (100 cells): 42% neutrophils, 44% lymphocytes, 7% monocytes, and 7% eosinophils. Leukocyte number: Moderately decreased. Granulocyte morphology: normal. Lymphocyte morphology: normal. Erythrocyte number: decreased. Erythrocyte morphology: normochromic/normocyt ic. Anisopoikilocytosis: Not significant. Polychromasia: mild. Platelet number: Markedly decreased; no significant platelet clumping seen. Platelet morphology: normal. 09/06/2018 1:56 PM [facility] Bone Marrow Aspirate Differential count (200 cells): 0.5% blasts, 50.5% maturing myeloid precursors, 32% erythroid progenitors, 1% monocytes, 2.5% eosinophils, 12% lymphocytes, and 1.5% plasma cells. Specimen quality: adequate. Spicules: present. Trilineage Hematopoiesis: present. Myeloid: Erythroid ratio: 1.7:1. Myeloid Maturation: normal. Erythroid Maturation: normal. Megakaryocyte morphology: normal nuclear lobation. Storage iron (by special stain): Decreased. Sideroblastic iron (by special stain): Decreased; no ring sideroblasts (control worked appropriately). The touch imprint demonstrates similar morphology to that of the aspirate smears, but are paucicellular. 09/06/2018 1:56 PM [facility] Bone Marrow Core Biopsy and Clot Section Description Specimen quality: The decalcified bone marrow biopsy is adequate for evaluation. Cellularity: Normocellular for age, estimated 40%. Trilineage Hematopoiesis: present. Myeloid: Erythroid ratio: Low-normal. Myeloid maturation and localization: normal. Erythroid maturation and localization: normal. Megakaryocyte number: normal. Megakaryocyte distribution: Few small, loose clusters. Lymphoid aggregates: absent. Bone trabeculae: normal. Blood vessels: normal. Core storage iron (by special stain): Focal stainable storage iron seen. Reticulin (by special stain): No increase in reticulin fibrosis (MF-0). Other: No increased numbers or clusters of blasts or plasma cells, granulomas, extrinsic cell population, or other marrow infiltrative process seen. Clot section marrow particles: Scant. Clot section morphology: similar to core biopsy. Clot section storage iron (by special stain): Focal stainable iron seen, though scant marrow particles present. 09/06/2018 1:56 PM [facility] Flow Cytometry Summary Concurrent bone marrow flow cytometry ([id number]) demonstrates no evidence of non-Hodgkin lymphoma or a high-grade myeloid neoplasm. 09/06/2018 1:56 PM [facility] Clinical History 52 year old woman with pancytopenia. 09/06/2018 1:56 PM [facility] Materials Received Received are 19 slides and 2 blocks labeled as [id number] along with the outside pathology report. The materials originate from [facility], [address] [place] [address]. All materials are returned to the referring institution, along with a copy of our final report. 09/06/2018 1:56 PM [facility] Disclaimer The performance characteristics of all immunohistochemical and indirect immunofluorescence stains (if any) cited in this report were determined by the Histopathology Laboratory of [facility]. Some of these tests were developed by our own laboratory and have not been cleared or approved by the US Food and Drug Administration. The FDA does not require this test to go through premarket FDA review. These tests are used for clinical purposes. They should not be regarded as investigational or for research. This laboratory is certified under the Clinical Laboratory Improvement Amendments (CLIA) as qualified to perform high complexity clinical laboratory testing. This case has been personally reviewed and interpreted by the attending (teaching) pathologist. 09/06/2018 1:56 PM [facility] Embedded Images 09/06/2018 1:56 PM [facility] Pathology/Cytology SPECIMEN FROM BONE MARROW OBTAINED BY ASPIRATION / Unknown 09/02/2018 9:00 AM CDT 09/05/2018 3:01 PM CDT Miscellaneous samples (specimen) BONE MARROW CLOT SPECIMEN / Unknown 09/02/2018 9:00 AM CDT 09/05/2018 3:01 PM CDT Miscellaneous samples (specimen) PERIPHERAL BLOOD / Unknown 09/02/2018 9:00 AM CDT 09/05/2018 3:01 PM CDT Miscellaneous samples (specimen) SPECIMEN FROM BONE MARROW OBTAINED BY ASPIRATION / Unknown 09/02/2018 9:00 AM CDT 09/05/2018 3:01 PM CDT Beth Osullivan MD LAB - PATHOLOGY/CYTO LOGY ORDERABLES Performing Organization Address City/State/[facility] Co de Phone Number [facility] PATHOLOGY LAB [address] [phone] documented in this encounter Visit Diagnoses Not on filedocumented in this encounter Additional Health Concerns Infection Onset Date Last Indicated Resolved Time COVID-19 Under Investigation 06/06/2024 06/06/2024 06/06/2024 9:54 AM CDT documented as of this encounter Care Teams Clinical Engineering Director Relationship Specialty Start Date End Date Kasey Williamson DO [address] [place] [id number] PCP - General Family Medicine 12/27/23 Melany Kuhn, RN Registered Nurse Hepatology 05/03/24 06/19/24 documented as of this encounter
--- OUTSIDE RECORDS SUMMARY | 2024-06-27 08:59 | XMS_ITS | Encounter Summary ---
Author Organization [facility] Address [address] [place] [address] Phone Care Team Providers Care Meter Reader Inspector Name Role Phone Vaughn Bradshaw MD Primary Care Provider [phone] Claudia Horn APRN Unavailable Vicenta Raymond DO Unavailable [phone] Gus Chowdary MD Unavailable Kasey Williamson DO Primary Care Provider [phone] Virginie Reyes RN Unavailable Unavailable Virginie Reyes RN Unavailable Unavailable Virginie Reyes RN Unavailable Unavailable Kelley Lopez LINE ANALYST, SEMICONDUCTOR PACKAGES TESTER Unavailable [phone]- [phone] Reason for Visit * Reason Onset Date Comments Medication Refill 06/23/2021 Encounter Details Date Type Department Care Team (Late st Contact Info) Description 06/23/2021 Refill [facility] - Family [facility] [address] [place] [address] Vaughn Bradshaw MD [address] [place] [address] Medication Refill Social History Tobacco Use Types [...] encounter Miscellaneous Notes * Telephone Encounter - Jesika Cohen RN - 06/23/2021 3:21 PM CDT Patient cancelled several follow up apts and no follow up appts made since. Medication failed the protocol, provider to review and approve the medication order if appropriate. Requested Prescriptions Pending Prescriptions Disp Refills fenofibrate micronized (LOFIBRA) 200 MG Capsule 90 Capsule 0 Sig: Take 1 Capsule by mouth daily. Fibrates Protocol Passed - 06/23/2021 9:38 AM Passed - Visit with relevant provider in past 12 months or upcoming 90 days Recent Visits Date Type Provider Dept 04/21/21 Telemedicine Monae Jorgensen APRN, [facility] 02/24/21 Office Visit Vaughn Bradshaw MD [facility] 01/20/21 Office Visit Vaughn Bradshaw MD [facility] 12/09/20 Office Visit Vaughn Bradshaw MD [facility] 11/28/20 Telemedicine Vaughn Bradshaw MD [facility] 10/03/20 Office Visit Vaughn Bradshaw MD [facility] Showing recent visits within past 365 days and meeting all other requirements Future Appointments No visits were found meeting these conditions. Showing future appointments within next 90 days and meeting all other requirements Passed - Lipid panel in past 12 months LDL Date Value Ref Range Status 01/20/2021 79 5 - 130 mg/dL Final HDL CHOLESTEROL Date Value Ref Range Status 01/20/2021 42.2 >40 mg/dL Final CHOLESTEROL Date Value Ref Range Status 01/20/2021 157 <=200 mg/dL Final TRIGLYCERIDES Date Value Ref Range Status 01/20/2021 178 (H) <150 mg/dL Final VLDL Date Value Ref Range Status 01/20/2021 36 5 - 55 mg/dL Final CHOL/HDL RATIO Date Value Ref Range Status 01/20/2021 3.7 0.0 - 4.4 Final NON-HDL CHOLESTEROL Date Value Ref Range Status 01/20/2021 114.8 <130 mg/dL Final * Telephone Encounter - Lily Whatley - 06/23/2021 9:38 AM CDT Received a faxed Rx request from pharmacy. Reordered refill medication(s) requested and pended for nurse and physician/RUTH review. Refill encounter routed to nurse Dianascript's pool for processing. documented in this encounter Plan of Treatment [...] documented as of this encounter Care Teams Meter Reader Inspector Relationship Specialty Start Date End Date Vaughn Bradshaw MD PCP - General Family Medicine 05/18/18 08/26/23 Kasey Williamson DO [address] [facility] [place] [address] PCP - General Family Medicine 09/14/23 Claudia Horn APRN [address] [place] [address] Advanced Practice Nurse 08/16/18 Vicenta Raymond DO [address] [facility] [address] [place] [address] Consulting Physician Obstetrics & Gynecology 09/25/21 uGs Chowdary MD #[address] [facility] [address] [place] [address] Consulting Physician Colon and Rectal Surgery 07/23/22 Virginie Reyes, RN [place] Nurse Straw Hat Brim Raiser Operator 09/14/23 09/14/23 Virginie Reyes, RN [place] Nurse Straw Hat Brim Raiser Operator 11/19/23 11/29/23 Virginie Reyes, RN [place] Nurse Straw Hat Brim Raiser Operator 12/07/23 05/15/24 Kelley Lopez APRN, SEMICONDUCTOR PACKAGES TESTER [address] [facility], [address] [place] [address] Nurse Practitioner Advanced Practice Nurse 12/09/23 02/22/24 documented as of this encounter
--- OUTSIDE RECORDS SUMMARY | 2024-06-27 08:59 | XMS_ITS | Encounter Summary ---
Author Organization [facility] Address [address] [place] [address] Phone Care Team Providers Care Flotation Operator Name Role Phone Vaughn Bradshaw MD Primary Care Provider [phone] Claudia Horn APRN Unavailable Vicenta Raymond DO Unavailable Gus Chowdary MD Unavailable Kasey Williamson DO Primary Care Provider [phone] Virginie Reyes RN Unavailable Unavailable Virginie Reyes RN Unavailable Unavailable Virginie Reyes RN Unavailable Unavailable Kelley Lopez RAMP SUPERVISOR, STATE SUPERINTENDENT OF SCHOOLS Unavailable [phone] Reason for Visit * Reason Comments Medication Refill Encounter Details Date Type Department Care Team (Late st Contact Info) Description 07/30/2023 Refill [facility] [address] [place] [address] Vaughn Bradshaw MD [address] [place] [address] Medication Refill Social History Tobacco Use Types Packs/Day Years Used Date Smoking Tobacco: Never Smokeless Tobacco: Never Alcohol Use Standard Drinks/Week Comments No 0 (1 standard drink = 0.6 oz pur e alcohol) [facility] Utilities Answer Date Recorded In the [...] often do you attend chur ch or cheondoism services? Never 04/27/2023 Do you belong to any clubs o r organizations such as mu-ism groups, unions, fraternal or athletic groups, or [...] Total Score - Questions 1-9 2 04/2023 [facility] - Occupational Stress [...] place to sleep or slept in a fci (including now)? No 04/27/2023 Education Answer Date [...] Encounter - Maria T Alejandre RN - 07/30/2023 9:58 AM CDT Medication failed the protocol, provider to review and approve the medication order if appropriate. Requested Prescriptions Pending Prescriptions Disp Refills FLUoxetine (PROzac) 20 MG Capsule [Pharmacy Med Name: FLUOXETINE 20MG CAPSULES] 180 Capsule 1 Sig: TAKE 2 CAPSULES BY MOUTH DAILY SSRI (6 Month Refill Only) Protocol Failed - 07/30/2023 3:55 AM Failed - Patient has established therapy with SSRI for at least 6 months Passed - Visit with relevant provider in past 6 months or upcoming 90 days Recent Visits Date Type Provider Dept 05/04/23 Office Visit Monae Jorgensen APRN, [facility] 03/23/23 Office Visit Monae Jorgensen APRN, FIGUEROA [facility] 03/01/23 Office Visit Monae Jorgensen APRN, CNP [facility] Showing recent visits within past 182 days and meeting all other requirements Future Appointments Date Type Provider Dept 08/06/23 Appointment Monae Jorgensen APRN, CNP [facility] 08/19/23 Appointment Vaughn Bradshaw MD [facility] Showing future appointments within next 90 days and meeting all other requirements Passed - Has an encounter in the past 6 months with a depression, anxiety, adjustment disorder, OCD, or PTSD visit diagnosis levothyroxine (SYNTHROID) 50 MCG Tablet [Pharmacy Med Name: LEVOTHYROXINE 0.05MG (50MCG) TAB] 90 Tablet 1 Sig: TAKE 1 TABLET BY MOUTH DAILY Thyroid Hormones Protocol Passed - 07/30/2023 3:55 AM Passed - Visit with relevant provider in past 12 months or upcoming 90 days Recent Visits Date Type Provider Dept 05/04/23 Office Visit Monae Jorgensen APRN, CNP [facility] 03/23/23 Office Visit Monae Jorgensen APRN, CNP [facility] 03/01/23 Office Visit Monae Jorgensen APRN, CNP [facility] 12/07/22 Office Visit Vaughn Bradshaw MD [facility] 09/17/22 Office Visit Vaughn Bradshaw MD [facility] 08/06/22 Office Visit Vaughn Bradshaw MD [facility] Showing recent visits within past 365 days and meeting all other requirements Future Appointments Date Type Provider Dept 08/06/23 Appointment Monae Jorgensen APRN, CNP [facility] 08/19/23 Appointment Vaughn Bradshaw MD [facility] Showing future appointments within next 90 days and meeting all other requirements Passed - Normal TSH in past 12 months TSH Date Value Ref Range Status 12/07/2022 0.640 0.300 - 5.000 mIU/L Final documented in this encounter Plan of Treatment Not on file documented as of this encounter Visit Diagnoses Diagnosis Moderate episode of recurrent major depressive disorder (HCC) documented in this encounter Additional Health Concerns Infection Onset Date Last Indicated Resolved Time COVID - 19 11/15/2023 11/15/2023 11/15/2023 11:4 7 PM CDT Assessment Noted Time PHQ-9 Depression Total Score: 2 03/23/19 8:19 AM PARIMUTUEL CLERK documented as of this encounter Care Teams Flotation Operator Relationship Specialty Start Date End Date Vaughn Bradshaw MD PCP - General Family Medicine 05/18/18 08/26/23 Kasey Williamson DO 2 [facility] [address] [place] [address] PCP - General Family Medicine 09/14/23 Claudia Horn APRN [address] [place] [address] Advanced Practice Nurse 08/16/18 Vicenta Raymond DO [address] [place] [address] [place] [address] Consulting Physician Obstetrics & Gynecology 09/25/21 Gus Chowdary MD #2 [facility] [address] [place] [address] Consulting Physician Colon and Rectal Surgery 07/23/22 Virginie Reyes, FAYE [place] Nurse Photo Producer 09/14/23 09/14/23 Virginie Reyes RN [place] Nurse Photo Producer 11/19/23 11/29/23 Reyes, Virginie M, RN [place] Nurse Photo Producer 12/07/23 05/15/24 Kelley Lopez, RAMP SUPERVISOR, STATE SUPERINTENDENT OF SCHOOLS #2 [facility], [address] [place] [address] Nurse Practitioner Advanced Practice Nurse 12/09/23 02/22/24 documented as of this encounter
--- OUTSIDE RECORDS SUMMARY | 2024-06-27 08:59 | XMS_ITS | Encounter Summary ---
Author Organization [facility] Address [address] [place] [address] Phone Care Team Providers Care Retail Store Associate Name Role Phone Vaughn Bradshaw MD Primary Care Provider [phone] Claudia Horn APRN Unavailable [phone] Vicenta Raymond DO Unavailable [phone] Gus Chowdary MD Unavailable Kasey Williamson DO Primary Care Provider [phone] Virginie Reyes RN Unavailable Unavailable Virginie Reyes RN Unavailable Unavailable Virginie Reyes RN Unavailable Unavailable Kelley Lopez PLAYERS CLUB REPRESENTATIVE, MELON PACKER Unavailable [phone] Reason for Visit * Reason Comments Medication Refill Encounter Details Date Type Department Care Team (Late st Contact Info) Description 04/11/2023 Refill [facility] #2 [place] [address] Vaughn Bradshaw MD [address] [place] [address] Medication Refill Social History Tobacco Use Types Packs/Day Years Used Date Smoking Tobacco: Never Smokeless Tobacco: Never Alcohol Use Standard Drinks/Week Comments No 0 (1 standard drink = 0.6 oz pur e alcohol) [facility] Utilities Answer Date Recorded In [...] often do you attend chur ch or scientologist services? Never 03/21/2023 Do you belong to any clubs o r organizations such as baptism groups, unions, fraternal or athletic groups, or [...] Total Score - Questions 1-9 2 04/2023 [facility] - Occupational [...] place to sleep or slept in a care home (including now)? No 03/21/2023 Education Answer Date [...] encounter Miscellaneous Notes * Telephone Encounter - Allison Del Rio RN - 04/11/2023 2:13 PM LAYBOY OPERATOR Medication warning Per nursing clinical judgement, provider to review and approve the medication(s) order(s) if appropriate. Requested Prescriptions Pending Prescriptions Disp Refills loratadine (CLARITIN) 10 MG Tablet [Pharmacy Med Name: LORATADINE 10MG TABLETS] 90 Tablet 1 Sig: TAKE 1 TABLET BY MOUTH DAILY Non-sedating Antihistamines Protocol Passed - 04/11/2023 3:54 AM Passed - Visit with relevant provider in past 12 months or upcoming 90 days Recent Visits Date Type Provider Dept 03/23/23 Office Visit Monae Jorgensen APRN, FIGUEROA [facility] 03/01/23 Office Visit Monae Jorgensen APRN, FIGUEROA [facility] 12/07/22 Office Visit Vaughn Bradshaw, MD [facility] 09/17/22 Office Visit Vaughn Bradshaw, MD [facility] 08/06/22 Office Visit Vaughn Bradshaw, MD [facility] 07/06/22 Office Visit Vaughn Bradshaw, MD [facility] 05/27/22 Office Visit Vivian Tucker APRN, CNP [facility] Showing recent visits within past 365 days and meeting all other requirements Future Appointments Date Type Provider Dept 05/04/23 Appointment Monae Jorgensen APRN, CNP [facility] Showing future appointments within next 90 days and meeting all other requirements pramipexole (MIRAPEX) 0.5 MG Tablet [Pharmacy Med Name: PRAMIPEXOLE 0.5MG TABLETS] 45 Tablet 1 Sig: TAKE 1/2 TABLET BY MOUTH EVERY NIGHT Antiparkinson Dopaminergics and COMT Protocol Passed - 04/11/2023 3:54 AM Passed - Visit with relevant provider in the past 9 months or upcoming 90 days Recent Visits Date Type Provider Dept 03/23/23 Office Visit Monae Jorgensen APRN, CNP [facility] 03/01/23 Office Visit Monae Jorgensen APRN, CNP [facility] 12/07/22 Office Visit Vaughn Bradshaw MD [facility] 09/17/22 Office Visit Vaughn Bradshaw MD [facility] 08/06/22 Office Visit Vaughn Bradshaw MD [facility] Showing recent visits within past 270 days and meeting all other requirements Future Appointments Date Type Provider Dept 05/04/23 Appointment Monae Jorgensen APRN, CNP [facility] Showing future appointments within next 90 days and meeting all other requirements Passed - Blood pressure on record in past 12 months Clinician-entered: BP Readings from Last 3 Encounters: 03/23/23 118/80 03/01/23 122/84 12/07/22 130/82 Patient-entered: No data recorded OY OPERATOR documented in this encounter Plan of Treatment Not on file documented as of this encounter Visit Diagnoses Diagnosis Environmental allergies Allergic rhinitis, cause unspecified Restless leg syndrome Restless legs syndrome (RLS) documented in this encounter Additional Health Concerns Infection Onset Date Last Indicated Resolved Time COVID - 19 11/15/2023 11/15/2023 11/15/2023 11:4 7 PM CDT Assessment Noted Time PHQ-9 Depression Total Score: 2 03/23/19 8:19 AM LAYBOY OPERATOR documented as of this encounter Care Teams Retail Store Associate Relationship Specialty Start Date End Date Vaughn Bradshaw MD PCP - General Family Medicine 05/18/18 08/26/23 Kasey Williamson DO 2 [facility] [address] [place] [address] PCP - General Family Medicine 09/14/23 Claudia Horn APRN [address] [place] [address] Advanced Practice Nurse 08/16/18 Vicenta Raymond DO [facility] [address] [place] [address] Consulting Physician Obstetrics & Gynecology 09/25/21 Gus Chowdary MD #2 [facility] [address] [place] [address] Consulting Physician Colon and Rectal Surgery 07/23/22 Virginie Reyes RN [place] Nurse Security Tester 09/14/23 09/14/23 Reyes, Virginie M, RN [place] Nurse Security Tester 11/19/23 11/29/23 Virginie Reyes, RN [place] Nurse Security Tester 12/07/23 05/15/24 Kelley Lopez, PLAYERS CLUB REPRESENTATIVE, MELON PACKER #2 [facility], [address] [place] [address] Nurse Practitioner Advanced Practice Nurse 12/09/23 02/22/24 documented as of this encounter
--- OUTSIDE RECORDS SUMMARY | 2024-06-27 08:59 | XMS_ITS | Encounter Summary ---
Author Organization [facility] Address [address] [place] [address] Phone Care Team Providers Care Graining Operator Name Role Phone Vaughn Bradshaw MD Primary Care Provider [phone] Claudia Horn APRN Unavailable [phone] Vicenta Raymond DO Unavailable Gus Chowdary MD Unavailable Kasey Williamson DO Primary Care Provider [phone] Virginie Reyes RN Unavailable Unavailable Virginie Reyes RN Unavailable Unavailable Virginie Reyes RN Unavailable Unavailable Kelley Lopez SEALER DRY CELL, SEARCH MANAGER Unavailable [phone]- [phone] Reason for Visit * Reason Comments Medication Refill Encounter Details Date Type Department Care Team (Late st Contact Info) Description 05/12/2023 [facility]ill [facility] [address] [place] [address] Vaughn Bradshaw MD [address] [place] [address] Medication Refill Social History Tobacco Use Types Packs/Day Years Used Date Smoking Tobacco: Never Smokeless Tobacco: Never Alcohol Use Standard Drinks/Week Comments No 0 (1 standard drink = 0.6 oz pur e alcohol) [facility] Utilities Answer Date Recorded In [...] often do you attend chur ch or sikhism services? Never 04/27/2023 Do you belong to any clubs o r organizations such as mormonism groups, unions, fraternal or athletic groups, or [...] Total Score - Questions 1-9 2 04/2023 [facility] - [...] slept in a half-way (including now)? No 04/27/2023 Education Answer Date [...] Encounter - Maria T Alejandre RN - 05/12/2023 11:39 AM CST Images from the original note were not included. Simvastatin Dispensed Days Supply Quantity Provider Pharmacy SIMVASTATIN 40MG TABLETS 05/07/2023 90 90 Each Vaughn Bradshaw MD [facility]... SIMVASTATIN 40MG TABLETS 02/01/2023 90 90 Each Vaughn Bradshaw MD [facility] #... L LOBBY CONCIERGE documented in this encounter Plan of Treatment Not on file documented as of this encounter Visit Diagnoses Not on filedocumented in this encounter Additional Health Concerns Infection Onset Date Last Indicated Resolved Time COVID - 19 11/15/2023 11/15/2023 11/15/2023 11:4 7 PM CDT Assessment Noted Time PHQ-9 Depression Total Score: 2 03/23/19 8:19 AM HOTEL LOBBY CONCIERGE documented as of this encounter Care Teams Graining Operator Relationship Specialty Start Date End Date Vaughn Bradshaw MD PCP - General Family Medicine 05/18/18 08/26/23 Kasey Williamson DO 2 [facility] [address] [place] [address] PCP - General Family Medicine 09/14/23 Claudia Horn APRN [address] [place] [address] Advanced Practice Nurse 08/16/18 Vicenta Raymond DO [facility] [address] [address] Consulting Physician Obstetrics & Gynecology 09/25/21 Gus Chowdary MD #2 [facility] [address] [place] [address] Consulting Physician Colon and Rectal Surgery 07/23/22 Virginie Reyes, FAYE [place] Nurse [place]ra [place]ta Roofer 09/14/23 09/14/23 Virginie Reyes, RN [place] Nurse [place] Roofer 11/19/23 11/29/23 Virginie Reyes, RN [place] Nurse [place] Roofer 12/07/23 05/15/24 Kelley Lopez APRN, SEARCH MANAGER #2 [facility], [address] [place] [address] Nurse Practitioner Advanced Practice Nurse 12/09/23 02/22/24 documented as of this encounter
--- OUTSIDE RECORDS SUMMARY | 2024-06-27 08:59 | XMS_ITS | Encounter Summary ---
Author Organization [facility] Address [address] [place] [address] Phone Care Team Providers Care Physician Surgeon Name Role Phone Claudia Horn APRN Unavailable [phone] Vicenta Raymond DO Unavailable [phone] Gus Chowdary MD Unavailable Kasey Williamson DO Primary Care Provider [phone] Virginie Reyes RN Unavailable Unavailable Reason for Visit * Reason Comments Medication Refill Encounter Details Date Type Department Care Team (Late st Contact Info) Description 04/15/2024 Refill [facility] - Family Medicine [facility] [address] [place] [address] Vaughn Bradshaw MD [address] [place] [address] Medication Refill Social History Tobacco Use Types Packs/Day Years Used Date Smoking Tobacco: Never Smokeless Tobacco: Never Alcohol Use Standard Drinks/Week Comments No 0 (1 standard drink = 0.6 oz pur e alcohol) [facility] Utilities Answer Date Recorded In the past 12 months has [employer] electric, gas, oil, or water company threatened to shut off services in your home? No 12/07/2023 Social Connection and Isolation Panel [NHANES] A nswer Date Recorded In a typical week, how many times do you talk on the phone with family, friends, or neighbors? Once a week 12/07/2023 How often do you get together with friends or re latives? Once a week 12/07/2023 How often do you attend yazdanism or roman catholic serv ices? Never 12/07/2023 Do you belong to any clubs o r organizations such as yazdanism groups, unions, fraternal or athletic groups, or school groups? No 12/07/2023 How often do you attend meet ings of the clubs or organizations you belong to? Never 12/07/2023 Are you , , di vorced, , never , or living with a partner? 12/07/2023 AUDIT-C Answer Date Recorded Q1: How often do you have a drink containing alcohol? Never 12/07/2023 Q2: How many drinks containi ng alcohol do you have on a typical day when you are drinking? Patient does not drink Q3: How often do you have si x or more drinks on one occasion? Never 12/07/2023 Overall Financial Resource Strain (CARDIA) Answe r Date Recorded How hard is it for you to pa y for the very basics like food, housing, medical care, and heating? Somewhat hard 12/07/2023 PHQ-2 Answer Date Recorded Total Score - Questions 1-9 0 11/20 [facility] - Occupational Stress Questionnaire Answer Date Recorded Do you feel stress - tense, restless, nervous, or anxious, or unable to sleep at night because your mind is troubled all the time - these days? Only a little 12/07/2023 Exercise Vital Sign Answer Date Recorde d On average, how many days pe r week do you engage in moderate to strenuous exercise (like a brisk walk)? 0 days 12/07/2023 On average, how many minutes do you engage in exercise at this level? 0 min 12/07/2023 Hunger Vital Sign Answer Date Recorded Within [...] medical appointments or from getting medications? Yes 11/20 In the past 12 months, has l ack of transportation kept you from meetings, work, or from getting things needed for daily living? No 12/07/2023 Housing Stability Vital Sign Answer Jose e [...] place to sleep or slept in a penitentiary (including now)? No 08/04/2023 Housing Stability Vital Sign Answer Jose e Recorded In the last 12 months, was t here a time when you were not able to pay the mortgage or rent on time? No 12/07/2023 In the past 12 months, how m any times have you moved where you were living? 0 12/07/2023 At any time in the past 12 m [facility], were you homeless or living in a penitentiary (including now)? No 12/07/2023 Education Answer Date Recorded What is the [...] Encounter - Allison Del Rio RN - 04/15/2024 12:02 PM PIPE MAKER Signed 5 days ago (04/10/2024): busPIRone HCl 7.5 MG Tablet Sig: Take 1 Tablet by mouth 2 times daily. Disp: 180 Tablet Refills: 2 Signed by: Kasey Williamson DO MAKER documented in this encounter Plan of Treatment Not on file documented as of this encounter Visit Diagnoses Diagnosis Anxiety and depression Dysthymic disorder documented in this encounter Additional Health Concerns Assessment Noted Time PHQ-9 Depression Total Score: 0 12/07/19 24 1:29 PM CDT documented as of this encounter Care Teams Physician Surgeon Relationship Specialty Start Date End Date Kasey Williamson DO [address] [facility] [address] [place] [address] PCP - General Family Medicine 09/14/23 Claudia Horn APRN [address] [place] [address] Advanced Practice Nurse 08/16/18 Vicenta Raymond DO [facility] [address] [place] [address] Consulting Physician Obstetrics & Gynecology 09/25/21 Gus Chowdary MD #[address] [facility] [address] [place] [address] Consulting Physician Colon and Rectal Surgery 07/23/22 Virginie Reyes RN [place] Nurse Plant And Equipment Worker 12/07/23 05/15/24 documented as of this encounter
--- OUTSIDE RECORDS SUMMARY | 2024-06-27 08:59 | XMS_ITS | Encounter Summary ---
Author Organization [facility] Address [address] [place] [address] Phone Care Team Providers Care Solar Photovoltaic Designer Name Role Phone Vaughn Bradshaw MD Primary Care Provider [phone] Claudia Horn APRN Unavailable [phone] Vicenta Raymond DO Unavailable Gus Chowdary MD Unavailable Kasey Williamson DO Primary Care Provider [phone] Virginie Reyes RN Unavailable Unavailable Virginie Reyes RN Unavailable Unavailable Virginie Reyes RN Unavailable Unavailable Kelley Lopez AIR LIAISON AND SPECIAL STAFF, AVIATION SAFETY OFFICER Unavailable [phone] Reason for Visit * Reason Comments Medication Refill Encounter Details Date Type Department Care Team (Late st Contact Info) Description 06/19/2023 Refill [facility] #[address] [place] [address] Vaughn Bradshaw MD [address] [place] [address] Medication Refill Social History Tobacco Use Types Packs/Day Years Used Date Smoking Tobacco: Never Smokeless Tobacco: Never Alcohol Use Standard Drinks/Week Comments No 0 (1 standard drink = 0.6 oz pur e alcohol) [facility] Utilities Answer Date Recorded In the [...] often do you attend chur ch or advent services? Never 04/27/2023 Do you belong to any clubs o r organizations such as sikhism groups, unions, fraternal or athletic groups, or [...] Total Score - Questions 1-9 2 04/2023 [facility] - [...] place to sleep or slept in a correction (including now)? No 04/27/2023 Education Answer Date [...] encounter Miscellaneous Notes * Telephone Encounter - Irma Beyer RN - 06/21/2023 2:28 PM CDT Duplicate request. documented in this encounter Plan of Treatment Not on file documented as of this encounter Visit Diagnoses Diagnosis Other migraine without status migrainosus, not intractable documented in this encounter Additional Health Concerns Infection Onset Date Last Indicated Resolved Time COVID - 19 11/15/2023 11/15/2023 11/15/2023 11:4 7 PM CDT Assessment Noted Time PHQ-9 Depression Total Score: 2 03/23/19 8:19 AM HYDROGEN TREATER documented as of this encounter Care Teams Solar Photovoltaic Designer Relationship Specialty Start Date End Date Vaughn Bradshaw MD PCP - General Family Medicine 05/18/18 08/26/23 Kasey Williamson DO [facility] [address] [place] [address] PCP - General Family Medicine 09/14/23 Claudia Horn APRN [address] [place] [address] Advanced Practice Nurse 08/16/18 Vicenta Raymond DO [facility] [address] [place] [address] Consulting Physician Obstetrics & Gynecology 09/25/21 Gus Chowdary MD #[address] [facility] [address] [place] [address] Consulting Physician Colon and Rectal Surgery 07/23/22 Virginie Reyes, RN [place] Nurse Casing Cleaner 09/14/23 09/14/23 Virginie Reyes, RN [place] Nurse Casing Cleaner 11/19/23 11/29/23 Virginie Reyes, RN [place] Nurse Casing Cleaner 12/07/23 05/15/24 Kelley Lopez APRN, AVIATION SAFETY OFFICER #[address] [facility] [address] [place] [address] Nurse Practitioner Advanced Practice Nurse 12/09/23 02/22/24 documented as of this encounter
--- OUTSIDE RECORDS SUMMARY | 2024-06-27 08:59 | XMS_ITS | Encounter Summary ---
Author Organization [facility] Address [address] [place] [address] Phone Care Team Providers Care Sheet Metal Superintendent Name Role Phone Vaughn Bradshaw MD Primary Care Provider [phone] Claudia Horn APRN Unavailable Vicenta Raymond DO Unavailable Gus Chowdary MD Unavailable Kasey Williamson DO Primary Care Provider [phone] Virginie Reyes RN Unavailable Unavailable Virginie Reyes RN Unavailable Unavailable Virginie Reyes RN Unavailable Unavailable Kelley Lopez VOCATIONAL NURSING INSTRUCTOR, YARD ASSISTANT Unavailable [phone] Reason for Visit * Reason Comments Medication Refill Encounter Details Date Type Department Care Team (Late st Contact Info) Description 06/25/2023 Refill [facility] #[address] [place] [address] Vaughn Bradshaw MD #[address] [place] [address] Medication Refill Social History Tobacco Use Types Packs/Day Years Used Date Smoking Tobacco: Never Smokeless Tobacco: Never Alcohol Use Standard Drinks/Week Comments No 0 (1 standard drink = 0.6 oz pur e alcohol) [facility] Utilities Answer Date Recorded In the past [...] attend chur ch or mormon services? Never 04/27/2023 Do you belong to any clubs o r organizations such as buddhist groups, unions, fraternal or athletic groups, or [...] Total Score - Questions 1-9 2 04/2023 [facility] ional Health - [...] place to sleep or slept in a senior care (including now)? No 04/27/2023 Education Answer Date [...] Encounter - Allison Del Rio RN - 06/27/2023 4:16 PM CDT Requested too soon documented in this encounter Plan of Treatment Not on file documented as of this encounter Visit Diagnoses Diagnosis Other migraine without status migrainosus, not intractable documented in this encounter Additional Health Concerns Infection Onset Date Last Indicated Resolved Time COVID - 19 11/15/2023 11/15/2023 11/15/2023 11:4 7 PM CDT Assessment Noted Time PHQ-9 Depression Total Score: 2 03/23/19 8:19 AM STORE STANDARDS ASSOCIATE documented as of this encounter Care Teams Sheet Metal Superintendent Relationship Specialty Start Date End Date Vaughn Bradshaw MD PCP - General Family Medicine 05/18/18 08/26/23 Kasey Williamson DO [address] [facility] [place] [place] [address] PCP - General Family Medicine 09/14/23 Claudia Horn APRN [address] [place] [address] Advanced Practice Nurse 08/16/18 Vicenta Raymond DO [facility] [address] [place] [address] Consulting Physician Obstetrics & Gynecology 09/25/21 Gus Chowdary MD #[address] [facility] [address] [place] [address] Consulting Physician Colon and Rectal Surgery 07/23/22 Virginie Reyes, RN [place] Nurse Meat Smoker 09/14/23 09/14/23 Virginie Reyes, RN [place] Nurse Meat Smoker 11/19/23 11/29/23 Virginie Reyes, RN [place] Nurse Meat Smoker 12/07/23 05/15/24 Kelley Lopez APRN, YARD ASSISTANT #[address] [facility] [place] [address] Nurse Practitioner Advanced Practice Nurse 12/09/23 02/22/24 documented as of this encounter
--- OUTSIDE RECORDS SUMMARY | 2024-06-27 08:59 | XMS_ITS | Encounter Summary ---
Author Organization [facility] Address [address] [place] [address] Phone Care Team Providers Care Manager It Training Name Role Phone Vaughn Bradshaw MD Primary Care Provider [phone] Claudia Horn APRN Unavailable Vicenta Raymond DO Unavailable [phone] Gus Chowdary MD Unavailable Kasey Williamson DO Primary Care Provider [phone] Virginie Reyes RN Unavailable Unavailable Virginie Reyes RN Unavailable Unavailable Virginie Reyes RN Unavailable Unavailable Kelley Lopez SERVICE DISMANTLER, CHOP SAW OPERATOR Unavailable [phone] Reason for Visit * Reason Comments Medication Refill Encounter Details Date Type Department Care Team (Late st Contact Info) Description 07/06/2021 Refill [facility] #[address] [place] [address] Vaughn Bradshaw MD #[address] [place] [address] Medication Refill Social History Tobacco Use Types [...] suspected to have Coronavirus/COVID-19? No / Unsure 07/04/2021 10:13 AM CDT documented as of this encounter Miscellaneous Notes * Telephone Encounter - Maria T Alejandre RN - 07/07/2021 2:07 PM CDT PRN medication requires review from provider Per nursing clinical judgement, provider to review and approve the medication(s) order(s) if appropriate. Requested Prescriptions Pending Prescriptions Disp Refills albuterol 108 (90 Base) MCG/ACT Aerosol Solution [Pharmacy Med Name: ALBUTEROL HFA INH(200 PUFFS)18GM] 36 g 1 Sig: INHALE 2 PUFFS BY MOUTH EVERY 4 HOURS NEEDED FOR WHEEZING OR COUGH Short Acting Inhaled Beta-Agonists Protocol Passed - 07/06/2021 3:56 AM Passed - Visit with relevant provider in past 12 months or upcoming 90 days Recent Visits Date Type Provider Dept 07/04/21 Office Visit Vaughn Bradshaw MD [facility] 04/21/21 Telemedicine Monae Jorgensen APRN, FIGUEROA [facility] 02/24/21 Office Visit Vaughn Bradshaw MD [facility] 01/20/21 Office Visit Vaughn Bradshaw MD [facility] 12/09/20 Office Visit Vaughn Bradshaw MD [facility] 11/28/20 Telemedicine Vaughn Bradshaw MD [facility] 10/03/20 Office Visit Vaughn Bradshaw MD [facility] Showing recent visits within past 365 days [...] documented as of this encounter Care Teams Manager It Training Relationship Specialty Start Date End Date Vaughn Bradshaw MD PCP - General Family Medicine 05/18/18 08/26/23 Kasey Williamson DO [facility] [address] [place] [address] PCP - General Family Medicine 09/14/23 Claudia Horn, FRANCES [address] [place] [address] Advanced Practice Nurse 08/16/18 Vicenta Raymond DO [facility] [place] [address] [place] [address] Consulting Physician Obstetrics & Gynecology 09/25/21 Gus Chowdary MD #[address] [facility] [facility] [address] [place] [address] Consulting Physician Colon and Rectal Surgery 07/23/22 Virginie Reyes, RN [place] Nurse Science Education Professor 09/14/23 09/14/23 Virginie Reyes, RN [place] Nurse Science Education Professor 11/19/23 11/29/23 Virginie Reyes, RN [place] Nurse Science Education Professor 12/07/23 05/15/24 Kelley Lopez, SERVICE DISMANTLER, CHOP SAW OPERATOR #2 [facility], [address] [place] [address] Nurse Practitioner Advanced Practice Nurse 12/09/23 02/22/24 documented as of this encounter
--- OUTSIDE RECORDS SUMMARY | 2024-06-27 08:59 | XMS_ITS | Encounter Summary ---
Author Organization [facility] Address [address] [place] [address] Phone Care Team Providers Care Social Services Assistant Name Role Phone Vaughn Bradshaw MD Primary Care Provider [phone] Claudia Horn APRN Unavailable Vicenta Raymond DO Unavailable Gus Chowdary MD Unavailable Kasey Williamson DO Primary Care Provider [phone] Virginie Reyes RN Unavailable Unavailable Virginie Reyes RN Unavailable Unavailable Virginie Reyes RN Unavailable Unavailable Kelley Lopez LEARNING AND DEVELOPMENT SPECIALIST, PILL PACKER Unavailable [phone]- [phone] Reason for Visit * Reason Comments Medication Refill Encounter Details Date Type Department Care Team (Late st Contact Info) Description 06/18/2023 Refill [facility] #[address] [place] [address] Vaughn Bradshaw MD [address] [place] [address] Medication Refill Social History Tobacco Use Types Packs/Day Years Used Date Smoking Tobacco: Never Smokeless Tobacco: Never Alcohol Use Standard Drinks/Week Comments No 0 (1 standard drink = 0.6 oz pur e alcohol) [facility] Utilities Answer Date Recorded In the [...] attend chur ch or hoahaoism services? Never 04/27/2023 Do you belong to any clubs o r organizations such as christianity groups, unions, fraternal or athletic groups, or [...] Total Score - Questions 1-9 2 04/2023 [facility] - [...] slept in a penitentiary (including now)? No 04/27/2023 Education Answer Date [...] encounter Miscellaneous Notes * Telephone Encounter - Kaia Rodas, RN - 06/21/2023 1:04 PM CDT Per nursing clinical judgement, provider to review and approve the medication(s) order(s) if appropriate. Rizatriptan last rx 04/2022, Cetirizine removed from med list on 05/04/23 Kaia RN Requested Prescriptions Pending Prescriptions Disp Refills Rizatriptan Benzoate 10 MG Tablet [Pharmacy Med Name: RIZATRIPTAN 10MG TABLETS] 9 Tablet 2 Sig: TAKE 1 TABLET BY MOUTH 1 TIME. MAY REPEAT AT 2 HOUR INTERVALS. DO NOT EXCEED 3 IN 24 HOURS Not Delegated - Serotonin Agonists (Oral and Nasal) Protocol Failed - 06/18/2023 9:04 PM Failed - This refill cannot be delegated; check utilization no more than 9 doses per month Passed - Visit with relevant provider in past 24 months or upcoming 90 days Recent Visits Date Type Provider Dept 05/04/23 Office Visit Monae Jorgensen APRN, FIGUEROA [facility] [place] 03/23/23 Office Visit Monae Jorgensen APRN, FIGUEROA [facility] 03/01/23 Office Visit Monae Jorgensen APRN, FIGUEROA [facility] [place] 12/07/22 Office Visit Vaughn Bradshaw MD [facility] 09/17/22 Office Visit Vaughn Bradshaw, MD [facility] 08/06/22 Office Visit Vaughn Bradshaw, MD [facility] 07/06/22 Office Visit Vaughn Bradshaw, MD [facility] 05/27/22 Office Visit Vivian Tucker APRN, FIG[facility]EROA [facility] [place] 02/03/22 Office Visit Vaughn Bradshaw, MD [facility] 12/16/21 Office Visit Vaughn Bradshaw, MD [facility] Showing recent visits within past 730 days and meeting all other requirements Future Appointments Date Type Provider Dept 08/19/23 Appointment Vaughn Bradshaw MD [facility] Showing future appointments within next 90 days and meeting all other requirements Passed - No documented Systolic BP > 200 within past 3 months Passed - Number of active Serotonergic medications less than 3 cetirizine (ZyrTEC) 10 MG Tablet [Pharmacy Med Name: CETIRIZINE 10MG TABLETS] 90 Tablet 3 Sig: Take 1 Tablet by mouth daily. Non-sedating Antihistamines Protocol Failed - 06/18/2023 9:04 PM Failed - Active on medication list Passed - Visit with relevant provider in past 12 months or upcoming 90 days Recent Visits Date Type Provider Dept 05/04/23 Office Visit Monae Jorgensen APRN, PILL PACKER [facility] [place] 03/23/23 Office Visit Monae Jorgensen APRN, PILL PACKER [facility] [place] 03/01/23 Office Visit Monae Jorgensen APRN, PILL PACKER [facility] [place] 12/07/22 Office Visit Vaughn Bradshaw MD [facility] 09/17/22 Office Visit Vaughn Bradshaw MD [facility] 08/06/22 Office Visit Vaughn Bradshaw MD [facility] 07/06/22 Office Visit Vaughn Bradshaw, MD [facility] Showing recent visits within past 365 days and meeting all other requirements Future Appointments Date Type Provider Dept 08/19/23 Appointment Vaughn Bradshaw MD [facility] Showing future appointments within next 90 days and meeting all other requirements Passed - Patient less than 65 years of age for Cetirizine or Levocetirizine documented in this encounter Plan of Treatment Not on file documented as of this encounter Visit Diagnoses Diagnosis Other migraine without status migrainosus, not intractable documented in this encounter Additional Health Concerns Infection Onset Date Last Indicated Resolved Time COVID - 19 11/15/2023 11/15/2023 11/15/2023 11:4 7 PM CDT Assessment Noted Time PHQ-9 Depression Total Score: 2 03/23/19 24 8:19 AM ADVERTISEMENT DISTRIBUTOR documented as of this encounter Care Teams Social Services Assistant Relationship Specialty Start Date End Date Vaughn Bradshaw MD PCP - General Family Medicine 05/18/18 08/26/23 Kasey Williamson DO [address] [place] [address] PCP - General Family Medicine 09/14/23 Claudia Horn APRN [address] [place] [address] Advanced Practice Nurse 08/16/18 Vicenta Raymond DO [address] [place] [address] Consulting Physician Obstetrics & Gynecology 09/25/21 Gus Chowdary MD #[address] [facility] [address] [place] [address] Consulting Physician Colon and Rectal Surgery 07/23/22 Virginie Reyes, RN [place] Nurse Shading Painter 09/14/23 09/14/23 Virginie Reyes, RN [place] Nurse Shading Painter 11/19/23 11/29/23 Virginie Reyes, RN [place] Nurse Shading Painter 12/07/23 05/15/24 Kelley Lopez, LEARNING AND DEVELOPMENT SPECIALIST, PILL PACKER [address] [facility] [address] [place] [address] Nurse Practitioner Advanced Practice Nurse 12/09/23 02/22/24 documented as of this encounter
--- OUTSIDE RECORDS SUMMARY | 2024-06-27 08:59 | XMS_ITS | Encounter Summary ---
Author Organization [facility] Address [address] [place] [address] Phone Care Team Providers Care Foundry Laborer Coreroom Name Role Phone Vaughn Bradshaw MD Primary Care Provider [phone] Claudia Horn APRN Unavailable Vicenta Raymond DO Unavailable Gus Chowdary MD Unavailable Kasey Williamson DO Primary Care Provider [phone] Virginie Reyes RN Unavailable Unavailable Virginie Reyes RN Unavailable Unavailable Virginie Reyes RN Unavailable Unavailable Kelley Lopez PAPER INSPECTOR, GRATED CHEESE MAKER Unavailable [phone]- [phone] Reason for Visit * Reason Comments Medication Refill Encounter Details Date Type Department Care Team (Late st Contact Info) Description 03/16/2023 Refill [facility] [address] [place] [address] Vaughn Bradshaw MD [address] [place] [address] Medication Refill Social History Tobacco Use Types Packs/Day Years Used Date Smoking Tobacco: Never Smokeless Tobacco: Never Alcohol Use Standard Drinks/Week Comments No 0 (1 standard drink = 0.6 oz pur e alcohol) PHQ-2 Answer Date Recorded Total Score - Questions 1-9 17 02/19 Education Answer Date Recorded What is the [...] Encounter - Maria T Alejandre RN - 03/16/2023 1:52 PM CST Refill on file according to last Rx. E MACHINE OFFBEARER documented in this encounter Plan of Treatment [...] Depression Total Score: 17 023 10:00 AM WASTE MACHINE OFFBEARER documented as of this encounter Care Teams Foundry Laborer Coreroom Relationship Specialty Start Date End Date Vaughn Bradshaw MD PCP - General Family Medicine 05/18/18 08/26/23 Kasey Williamson DO 2 [facility] [address] [address] PCP - General Family Medicine 09/14/23 Claudia Horn APRN [address] [place] [address] Advanced Practice Nurse 5/28/19 Vicenta Raymond DO [address] [place] [address] Consulting Physician Obstetrics & Gynecology 09/25/21 Gus Chowdary MD #[address] [facility] [address] [place] [address] Consulting Physician Colon and Rectal Surgery 07/23/22 Virginie Reyes, RN [place] Nurse Organ Grinder 09/14/23 09/14/23 Virginie Reyes, RN [place] Nurse Organ Grinder 11/19/23 11/29/23 Virginie Reyes, RN [place] Nurse Organ Grinder 12/07/23 05/15/24 Kelley Lopez, PAPER INSPECTOR, GRATED CHEESE MAKER #2 [facility] [address] [place] [address] Nurse Practitioner Advanced Practice Nurse 12/09/23 02/22/24 documented as of this encounter
--- OUTSIDE RECORDS SUMMARY | 2024-06-27 08:59 | XMS_ITS | Encounter Summary ---
Author Organization [facility] Address [address] [place] [address] Phone Care Team Providers Care Auto Crane Driver Name Role Phone Vaughn Bradshaw MD Primary Care Provider [phone] Claudia Horn APRN Unavailable Vicenta Raymond DO Unavailable Gus Chowdary MD Unavailable Kasey Williamson DO Primary Care Provider Virginie Reyes RN Unavailable Unavailable Virginie Reyes RN Unavailable Unavailable Virginie Reyes RN Unavailable Unavailable Kelley Lopez DUAL RATE SUPERVISOR, DRAFTER AUTOMOTIVE DESIGN Unavailable [phone] Reason for Visit * Reason Comments Medication Refill Encounter Details Date Type Department Care Team (Late st Contact Info) Description 04/12/2023 Refill [facility] [address] [place] [address] Vaughn Bradshaw MD [address] [place] [address] Medication Refill Social History Tobacco Use Types Packs/Day Years Used Date Smoking Tobacco: Never Smokeless Tobacco: Never Alcohol Use Standard Drinks/Week Comments No 0 (1 standard drink = 0.6 oz pur e alcohol) [facility] Utilities Answer Date Recorded In the past [...] often do you attend chur ch or samaritan services? Never 03/21/2023 Do you belong to any clubs o r organizations such as muslim groups, unions, fraternal or athletic groups, or [...] Total Score - Questions 1-9 2 04/2023 [facility] - Occupational [...] place to sleep or slept in a chcf (including now)? No 03/21/2023 Education Answer Date [...] Encounter - Maria T Alejandre RN - 04/12/2023 12:22 PM CST PRN medication requires review from provider Per nursing clinical judgement, provider to review and approve the medication(s) order(s) if appropriate. Requested Prescriptions Pending Prescriptions Disp Refills albuterol 108 (90 Base) MCG/ACT Aerosol Solution [Pharmacy Med Name: ALBUTEROL HFA INH(200 PUFFS) 18GM] 54 g 1 Sig: INHALE 2 PUFFS BY MOUTH EVERY 4 HOURS NEEDED FOR WHEEZING OR COUGH Short Acting Inhaled Beta-Agonists Protocol Passed - 04/12/2023 3:56 AM Passed - Visit with relevant provider in past 12 months or upcoming 90 days Recent Visits Date Type Provider Dept 03/23/23 Office Visit Monae Jorgensen APRN, FIGUEROA [facility] [place] 03/01/23 Office Visit Monae Jorgensen APRN, DRAFTER AUTOMOTIVE DESIGN [facility] 12/07/22 Office Visit Vaughn Bradshaw, MD [facility] 09/17/22 Office Visit Vaughn Bradshaw, MD [facility] 08/06/22 Office Visit Vaughn Bradshaw, [facility] 07/06/22 Office Visit Vaughn Bradshaw, MD [facility] 05/27/22 Office Visit Vivian Tucker APRN, DRAFTER AUTOMOTIVE DESIGN [facility] Showing recent visits within past 365 days and meeting all other requirements Future Appointments Date Type Provider Dept 05/04/23 Appointment Monae Jorgensen APRN, DRAFTER AUTOMOTIVE DESIGN [facility] Showing future appointments within next 90 days and meeting all other requirements STRIAL STAFF NURSE documented in this encounter Plan of Treatment Not on file documented as of this encounter Visit Diagnoses Not on filedocumented in this encounter Additional Health Concerns Infection Onset Date Last Indicated Resolved Time COVID - 19 11/15/2023 11/15/2023 11/15/2023 11:4 7 PM CDT Assessment Noted Time PHQ-9 Depression Total Score: 2 03/23/19 24 8:19 AM INDUSTRIAL STAFF NURSE documented as of this encounter Care Teams Auto Crane Driver Relationship Specialty Start Date End Date Vaughn Bradshaw MD PCP - General Family Medicine 05/18/18 08/26/23 Kasey Williamson DO [address] [address] PCP - General Family Medicine 09/14/23 Claudia Horn APRN [address] [place] [address] Advanced Practice Nurse 08/16/18 Vicenta Raymond DO [address] [facility] [address] [place] [address] Consulting Physician Obstetrics & Gynecology 09/25/21 Gus Chowdary MD #2 [facility] [address] [place] [address] Consulting Physician Colon and Rectal Surgery 07/23/22 Virginie Reyes, RN [place] Nurse Solutions Architect 09/14/23 09/14/23 Virginie Reyes, RN [place] Nurse Solutions Architect 11/19/23 11/29/23 Virginie Reyes, RN [place] Nurse Solutions Architect 12/07/23 05/15/24 Kelley Lopez, DUAL RATE SUPERVISOR, DRAFTER AUTOMOTIVE DESIGN #2 [facility] [place] [facility] [address] [place] [address] Nurse Practitioner Advanced Practice Nurse 12/09/23 02/22/24 documented as of this encounter
--- OUTSIDE RECORDS SUMMARY | 2024-06-27 08:59 | XMS_ITS | Encounter Summary ---
Author Organization [facility] Address [address] [place] [address] Phone Care Team Providers Care Sausage Cooker Name Role Phone Vaughn Bradshaw MD Primary Care Provider [phone] Claudia Horn APRN Unavailable Vicenta Raymond DO Unavailable [phone] Gus Chowdary MD Unavailable Kasey Williamson DO Primary Care Provider [phone] Virginie Reyes RN Unavailable Unavailable Virginie Reyes RN Unavailable Unavailable Virginie Reyes RN Unavailable Unavailable Kelley Lopez LIFE SKILLS EDUCATOR, QUALITY DIRECTOR Unavailable [phone]- [phone] Reason for Visit * Reason Comments Medication Refill Encounter Details Date Type Department Care Team (Late st Contact Info) Description 04/26/2023 Refill [facility] Family [facility] #2 [place] [address] Vaughn Bradshaw MD #[address] [place] [address] Medication Refill Social History Tobacco Use Types Packs/Day Years Used Date Smoking Tobacco: Never Smokeless Tobacco: Never Alcohol Use Standard Drinks/Week Comments No 0 (1 standard drink = 0.6 oz pur e alcohol) [facility] Utilities Answer Date Recorded In the [...] often do you attend chur ch or scientology services? Never 04/27/2023 Do you belong to any clubs o r organizations such as pentecostal groups, unions, fraternal or athletic groups, or [...] Total Score - Questions 1-9 2 04/2023 [facility] Occupat ional Health - Occupational Stress [...] No 04/27/2023 Housing Stability Vital Sign Answer [place] Recorded In the last 12 months, [...] place to sleep or slept in a alf (including now)? No 04/27/2023 Education Answer Date [...] Score Answer Date of Assessment Author 0 04/27/2023 4:26 AM [employer], System Background * Within the last year, have you been raped or forced to have any kind of sexual activity by your partner or ex-partner? Answer Date of Assessment Author No 04/27/2023 4:26 AM [employer], System Background * Q1: How often do you have a drink containing alcohol? Answer Date of Assessment Author Never 04/27/2023 4:26 AM [employer], System Background * Q2: How many drinks containing alcohol do you have on a typical day when you are drinking? Answer Date of Assessment Author Patient does not drink 04/27/2023 4:26 AM RISK AND INSURANCE MANAGER My chart, System Background * Q3: How often do you have six or more drinks on one occasion? Answer Date of Assessment Author Never 04/27/2023 4:26 AM RISK AND INSURANCE MANAGER [employer], System Background documented as of this encounter Miscellaneous Notes * Telephone Encounter - Maria T Alejandre RN - 04/28/2023 11:50 AM CST Needs new Rx for levothyroxine - takes 50 mcg daily (confirmed with patient) Fluoxetine is NOT a refill too soon - she needs a new Rx for a 90 days supply - last Rx was for 45 days Medication failed the protocol, provider to review and approve the medication order if appropriate. Requested Prescriptions Pending Prescriptions Disp Refills levothyroxine (SYNTHROID) 50 MCG Tablet [Pharmacy Med Name: LEVOTHYROXINE 0.05MG (50MCG) TAB] 90 Tablet 0 Sig: Take 1 Tablet by mouth daily. Thyroid Hormones Protocol Passed - 04/28/2023 11:50 AM Passed - Visit with relevant provider [...] MD [facility] 07/06/22 Office Visit Vaughn Bradshaw MD [facility] 05/27/22 Office Visit Vivian Tucker APRN, FIGUEROA [facility] Showing recent visits within past 365 days and meeting all other requirements Future Appointments Date Type Provider Dept 05/04/23 Appointment Monae Jorgensen APRN, FIG[facility]ER[facility] Showing future appointments within next 90 days and meeting all other requirements Passed - Normal TSH in past 12 months TSH Date Value Ref Range Status 12/07/2022 0.640 0.300 - 5.000 mIU/L Final FLUoxetine (PROzac) 20 MG Capsule 180 Capsule 0 Sig: Take 2 Capsules by mouth daily. SSRI (6 Month Refill Only) Protocol Failed - 04/28/2023 11:50 AM Failed - Patient has established therapy with SSRI for at least 6 months Passed - Visit with relevant provider in past 6 months or upcoming 90 days Recent Visits Date Type Provider Dept 03/23/23 Office Visit Monae Jorgensen APRN, FIGUEROA [facility] 03/01/23 Office Visit Monae Jorgensen APRN, FIGUEROA [facility] 12/07/22 Office Visit Vaughn Bradshaw MD [facility] Showing recent visits within past 182 days and meeting all other requirements Future Appointments Date Type Provider Dept 05/04/23 Appointment Monae Jorgensen APRN, FIGUEROA [facility] Showing future appointments within next 90 days and meeting all other requirements Passed - Has an encounter in the past 6 months with a depression, anxiety, adjustment disorder, OCD, or PTSD visit diagnosis AND INSURANCE MANAGER documented in this encounter Plan of Treatment Not on file documented as of this encounter Visit Diagnoses Diagnosis Moderate episode of recurrent major depressive disorder (HCC) documented in this encounter Additional Health Concerns Infection Onset Date Last Indicated Resolved Time COVID - 19 11/15/2023 11/15/2023 11/15/2023 11:4 7 PM CDT Assessment Noted Time PHQ-9 Depression Total Score: 2 03/23/19 8:19 AM RISK AND INSURANCE MANAGER documented as of this encounter Care Teams Sausage Cooker Relationship Specialty Start Date End Date Vaughn Bradshaw MD PCP - General Family Medicine 05/18/18 08/26/23 Kasey Williamson DO 2 [facility] [address] [address] PCP - General Family Medicine 09/14/23 Claudia Horn APRN [address] [place] [address] Advanced Practice Nurse 08/16/18 Vicenta Raymond DO [address] [facility] [address] [place] [address] Consulting Physician Obstetrics & Gynecology 09/25/21 Gus Chowdary MD #[address] [facility] [address] [place] [address] Consulting Physician Colon and Rectal Surgery 07/23/22 Virginie Reyes, RN [place] Nurse Entertainment Manager 09/14/23 09/14/23 Virginie Reyes, RN [place] Nurse Entertainment Manager 11/19/23 11/29/23 Virginie Reyes, RN [place] Nurse Entertainment Manager 12/07/23 05/15/24 Kelley Lopez, LIFE SKILLS EDUCATOR, QUALITY DIRECTOR #[address] [facility] [address] [place] [address] Nurse Practitioner Advanced Practice Nurse 12/09/23 02/22/24 documented as of this encounter
--- OUTSIDE RECORDS SUMMARY | 2024-06-27 08:59 | XMS_ITS | Encounter Summary ---
Author Organization [facility] Address [address] [place] [address] Care Team Providers Care Line Repairer Tower Name Role Phone Kasey Williamson DO Primary Care Provider [phone] Melany Kuhn RN Unavailable Unavailable Encounter Details Date Type Department Care Team (Late Contact Info) Description 09/02/2018 Lab Requisition [facility] Care Pathology Lab [address] [place] [address] Beth Osullivan MD [address] [place] [address] Other pancytopenia Social History Tobacco Use Types Packs/Day Years [...] AM CDT Office Visit Transitional Care at [facility] [address] [place] [id number] 08/28/2024 9:30 AM CDT Office Visit [facility] - GI [address] [place] [address], [place] [address] Allison Leavitt, SENIOR COMPUTER SPECIALIST-[employer] [address] [place] [address] [place] [address] 09/25/2024 8:40 AM CDT Office Visit [facility] - Endocrinology [address] [place] [address], [place] [phone] Phoebe Joseph MD [address] [place] [address] 2L DIV [place] [address] documented as of this encounter Procedures Procedure Name Priority Date/Time Associated Diagnosis Comments FLOW CYTOMETRY BONE MARROW Routine 09/02/2018 9:48 AM CDT Other pancytopenia documented in this encounter Results * FLOW CYTOMETRY BONE MARROW (09/02/2018 9:48 AM CDT) Case Report Flow Cytometry Case: [id number] Authorizing Provider: Beth Osullivan MD Collected: 09/02/2018 09:48 AM Pathologist: Kelton Ellsworth MD Received: 09/02/2018 02:43 PM Specimen: Bone Marrow 09/02/2018 4:36 PM CDT [facility] Final Diagnosis Bone marrow, flow cytometric immunophenotypic analysis ([id number]): - No evidence of non-Hodgkin lymphoma or high-grade myeloid neoplasm. - See interpretation. 09/02/2018 4:36 PM CDT [facility] Flow Cytometry Interpretation The bone marrow specimen has a viability of 83%. The lymphocyte gate shows mild relative expansion. Within the lymphocyte gate, there is no monotypic B-cell population identified (kappa: lambda ratio = 1.5:1). There is no aberrant co-expression of CD5 or CD10 on the mature B-cells. There is no aberrantly expanded T-cell population seen. By CD34, 1.7% of all events analyzed are blasts. A bone marrow aspirate smear prepared from the flow cytometry specimen is reviewed for quality control tech purposes. Overall, the bone marrow aspirate specimen shows no evidence of involvement by non-Hodgkin lymphoma or a high-grade myeloid neoplasm. Correlation with clinical findings, concurrent bone marrow core biopsy, and relevant cytogenetic/molecu lar studies is required. DEVELOPMENT CHEMIST/NW 09/02/2018 4:36 PM T [facility] Flow Cytometry Results Differential Result Comment Flow Cell Count /uL [id number] Total Viability % 83.0 Lymphocytes % 24 Dim CD45 Region % 6 Monocytes % 7 Granulocytes % 55 09/02/2018 4:36 PM CDT [facility] Reason for test Other pancytopenia 284.19 09/02/2018 4:36 PM T [facility] Client Specimen ID # [id number] 09/02/2018 4:36 PM T [facility] Number of markers 10 were performed. A Flow CD10 A Flow CD13 A Flow CD20 A Flow CD5 A Flow CD19 A Flow CD33 A Flow CD34 A Flow CD45 A Rosser+CD19+ A Lambda+CD19+ 09/02/2018 4:36 PM T [facility] PATH[facility] Disclaimer Test performed at [facility], [address] [place] [address], [facility]. *The established laboratory minimum viability is 70%. Values below the minimum may result in the failure to find an abnormal population of cells. This test was developed and its performance characteristics determined by the Flow Cytometry Laboratory. It has not been cleared by the [place] Food and Drug Administration (FDA). The FDA has determined that such clearance or approval is not necessary. This test is used for clinical purposes. It should not be regarded as investigational or for research. This laboratory is regulated under the Clinical Laboratory Improvement Amendments of 1998 (CLIA) as a qualified to perform high complexity clinical testing. 09/02/2018 4:36 PM T [facility] PATH[facility] Embedded Images 9 4:36 PM T [facility] PATHOLOGY LAB Pathology/Cytolo gy BONE MARROW SPECIMEN / Unknown 09/02/2018 9:48 AM CDT 09/02/2018 2:43 PM CDT Beth Osullivan MD LAB - PATHOLOGY/CYTO LOGY ORDERABLES [facility] PATHOLOGY LAB [address] [place] [address]. [address] [phone] documented in this encounter Visit Diagnoses Diagnosis Other pancytopenia (HCC) Other pancytopenia documented in this encounter Additional Health Concerns Infection Onset Date Last Indicated Resolved Time COVID-19 Under Investigation 06/06/2024 06/06/2024 06/06/2024 9:54 AM CDT documented as of this encounter Care Teams Line Repairer Tower Relationship Specialty Start Date End Date Kasey Williamson DO [address] [place] [phone] PCP - General Family Medicine 12/27/23 Melany Kuhn, RN Registered Nurse Hepatology 05/03/24 06/19/24 documented as of this encounter
--- OUTSIDE RECORDS SUMMARY | 2024-06-27 08:59 | XMS_ITS | Encounter Summary ---
Author Organization [facility] Address [address] [place] [address] Phone Care Team Providers Care Calender Roll Press Operator Name Role Phone Vaughn Bradshaw MD Primary Care Provider [phone] Claudia Horn PALLET ASSEMBLER Unavailable Vicenta Raymond DO Unavailable [phone] Gus Chowdary MD Unavailable Kasey Williamson DO Primary Care Provider [phone] Virginie Reyes RN Unavailable Unavailable Virginie Reyes RN Unavailable Unavailable Virginie Reyes RN Unavailable Unavailable Kelley Lopez PALLET ASSEMBLER, LABELING SPECIALIST Unavailable [phone] Reason for Visit * Reason Onset Date Comments Cough 04/10/2021 Encounter Details Date Type Department Care Team (Late st Contact Info) Description 04/10/2021 Nurse Triage [facility] [address] [place] [address] Vaughn Bradshaw MD [address] [place] [address] Cough Social History Tobacco Use Types Packs/Day Years [...] or suspected to have Coronavirus / COVID-19? Yes 03/31/2021 8:02 AM MENTAL RETARDATION NURSE documented as of this encounter Miscellaneous Notes * Telephone Encounter - Kaia Rodas RN - 04/11/2021 8:45 AM CST SHIRA Thank You, Kaia MCKINNEY AL RETARDATION NURSE * Telephone Encounter - Kaia Rodas RN - 04/10/2021 9:44 AM CST SITUATION: Cough since diagnosed with Covid 03/31/21, chest congestion, sometimes has a fever, sometimes shortness of breath with exertion and when coughing. Chest pain in mid chest when coughing and back pain, worse at night. BACKGROUND: Covid positive 03/31/21 HISTORY: Cirrhosis of Liver ASSESSMENT & RECOMMENDATION: First positive answer recorded, all responses to prior questions were negative. If symptoms increase, change or if new symptoms develop, call your HCP or call back. Recommendations were based on caller information and is not a diagnosis. Verified and reviewed all triage information with caller. Teach-back method utilized. Reason for Disposition ??? [1] Adult with possible COVID-19 symptoms AND [2] triager concerned about severity of symptoms or other causes Protocols used: CORONAVIRUS (COVID-19) DIAGNOSED OR [id number] AL RETARDATION NURSE * Telephone Encounter - Kaia Rodas, RN - 04/10/2021 9:42 AM CSTFrom: Ngozi Nascimento To: Dr. Soledad Bradshaw Sent: 04/10/2021 9:09 AM MENTAL RETARDATION NURSE Subject: Possible covid pneumonia What should I do? I am having major coughing spells throughout the day. I woke up feeling like I have a ton of crap in my chest. Back is raw from coughing. Chest hurts from coughing. Could it be pneumonia? Should I go to ER or what. I feel horrible. AL RETARDATION NURSE documented in this encounter Plan of Treatment Not on file documented as of this encounter Visit Diagnoses Not on filedocumented in this encounter Additional Health Concerns Infection Onset Date Last Indicated Resolved Time COVID - 19 Confirmed 03/31/2021 03/31/2021 022 12:16 AM MENTAL RETARDATION NURSE COVID - 19 01/14/2022 01/14/2022 01/15/2022 7:59 AM CDT Respiratory Rule-Out 01/14/2022 01/14/2022 022 8:08 AM CDT COVID - 19 11/15/2023 11/15/2023 11/15/2023 11:4 7 PM CDT Assessment Noted Time PHQ-9 Depression Total Score: 0 10/04/19 9:00 AM CDT documented as of this encounter Care Teams Calender Roll Press Operator Relationship Specialty Start Date End Date Vaughn Bradshaw MD PCP - General Family Medicine 05/18/18 08/26/23 Kasey Williamson DO [address] [facility] [address] [address] PCP - General Family Medicine 09/14/23 Claudia Horn APRN [address] [place] [address] Advanced Practice Nurse 08/16/18 Vicenta Raymond DO [address] [place] [address] [place] [address] Consulting Physician Obstetrics & Gynecology 09/25/21 Gus Chowdary MD [address] [facility] [address] [place] [address] Consulting Physician Colon and Rectal Surgery 07/23/22 Virginie Reyes, RN [place] Nurse Receiving Lead 09/14/23 09/14/23 Virginie Reyes, RN [place] Nurse Receiving Lead 11/19/23 11/29/23 Virginie Reyes, RN [place] Nurse Receiving Lead 12/07/23 05/15/24 Kelley Lopez, PALLET ASSEMBLER, LABELING SPECIALIST #2 [facility] [address] [place] [address] Nurse Practitioner Advanced Practice Nurse 12/09/23 02/22/24 documented as of this encounter
--- OUTSIDE RECORDS SUMMARY | 2024-06-27 08:59 | XMS_ITS | Referral Summary ---
Author Organization [facility] HealthCare Care Team Providers Care Humanities And Languages Professor Name Role Phone Vicenta Raymond DO Unavailable [phone] Vaughn Bradshaw MD Primary Care Provider [phone] Allergies No known active allergies Medications albuterol HFA (PROVENTIL HFA,VENTOLIN HFA,PROAIR HFA) 90 mcg/actuation inhaler INHALE 2 PUFFS BY MOUTH EVERY 4 HOURS NEEDED FOR WHEEZING OR COUGH 2 Active allopurinoL (ZYLOPRIM) 300 mg tablet Take 300 mg by mouth daily 2 Active busPIRone (BUSPAR) 7.5 mg tablet TAKE 1 TABLET(7.5 MG) BY MOUTH TWICE DAILY 1 Active cetirizine (ZyrTEC) 10 mg tablet Take 10 mg by mouth daily 2 Active citalopram (CeleXA) 20 mg tablet Take 20 mg by mouth daily 2 Active cyanocobalamin (Vitamin B-12) 1,000 mcg tablet Take 1,000 mcg by mouth daily 2 Active dicyclomine (BENTYL) 20 mg tablet Take 20 mg by mouth 2 (two) times a day 1 Active EPINEPHrine 0.3 mg/0.3 mL auto-injection syringe Inject 0.3 mg into the muscle as instructed daily as needed 1 Active ergocalciferol (VITAMIN D) 50,000 unit capsule Take 1.25 mg by mouth once a week 2 Active fenofibrate micronized (LOFIBRA) 200 mg capsule Take 200 mg by mouth daily 2 Active fluticasone propionate (FLONASE) 50 mcg/actuation nasal spray Administer 1-2 sprays into affected nostril(s) daily Active NovoLOG 100 unit/mL (3 mL) pen for injection Inject 10 Units under the skin 3 (three) times a day 2 Active TOUJEO MAX 300 unit/mL (3 mL) pen for injection 74 Units daily 2 Active levothyroxine (SYNTHROID) 50 mcg tablet Take 25 mcg by mouth daily 2 Active loratadine (CLARITIN) 10 mg tablet Take 10 mg by mouth daily 2 Active metFORMIN (GLUCOPHAGE) 1,000 mg tablet Take 1,000 mg by mouth 2 (two) times a day with meals 2 Active montelukast (SINGULAIR) 10 mg tablet Take 10 mg by mouth nightly 2 Active nadoloL (CORGARD) 20 mg tablet Take 20 mg by mouth daily 2 Active omeprazole (PriLOSEC) 20 mg capsule Take 20 mg by mouth 2 (two) times a day 2 Active pramipexole (MIRAPEX) 0.5 mg tablet TAKE 1/2 TABLET BY MOUTH EVERY NIGHT 2 Active rizatriptan (MAXALT) 10 mg tablet Take 10 mg by mouth daily as needed 1 Active simvastatin (ZOCOR) 40 mg tablet Take 40 mg by mouth daily 2 Active triamterene-hyd roCHLOROthiazid e (MAXZIDE,DYAZID E) 75-50 mg per tablet Take 0.5 tablets by mouth daily 2 Active semaglutide (Ozempic) 0.25 mg or 0.5 mg(2 mg/1.5 mL) pen injector injection Inject 0.5 mg under the skin once a week 2 Active clotrimazole-be tamethasone (LOTRISONE) lotionIndicatio ns:Panniculitis APPLY TOPICALLY TO THE AFFECTED AREA TWICE DAILY NEEDED FOR RASH 30 mL 3 Active Active Problems Problem Noted Date Diagnosed Date Acute cystitis 01/14/2022 Hepatic encephalopathy 01/14/2022 Morbid obesity 01/14/2022 Arthritis 05/18/2018 Hyperlipidemia 05/18/2018 Hypertension 05/18/2018 Hypothyroid 05/18/2018 Migraines 05/18/2018 Thrombocytopenia due to hypersplenism 05/18/2018 Iron deficiency anemia due to chronic blood loss 12/10/2017 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 12/10/2017 Pancytopenia 12/10/2017 Splenomegaly 12/10/2017 Diabetes mellitus 03/22/2003 Resolved Problems Problem Noted Date Diagnosed Date Resolved Date Abnormal uterine bleeding 02/20/2022 Overview (02/20/2022): Added automatically from request for surgery [id number] Postmenopausal bleeding 09/04/202104/22 Overview (09/04/2021): Added automatically from request for surgery [id number] Immunizations Immunization Administration Dates Next Due Hep A / Hep B 02/17/2018 Influenza, Quadrivalent, Martha l Culture-based MDCK, Antibiotic Free, Intramuscular 02/17/2018 Influenza, Quadrivalent, Spl it, Preservative Free, Intramuscular 02/03/2022,01/20/2021,01/30/2019 Pneumococcal Polysaccharide PPV23 02/17/2018 Tdap 05/18/2018 Social History Tobacco Use Types Packs/Day Years Used Date Smoking Tobacco: Never Passive Smoke Exposure: Past Smokeless Tobacco: Never Tobacco Cessation:Counseling Given: Not Answered AUDIT-C Answer Date Recorded Q1: How often do you have a drink containing alcohol? Never 03/24/2022 Q2: How many drinks containi ng alcohol do you have on a typical day when you are drinking? Patient does not drink Q3: How often do you have si x or more drinks on one occasion? Never 03/24/2022 Personal Safety Answer Date Recorded Getting School Help Needed Denies 03/12 Comments No Sex and Gender Information Value Date Recorded Sex Assigned at Not on file Legal Sex Female 9:08 AM CDT Gender Identity Not on file Sexual Orientation Not on file Occupation Industry Job Start Date Job End Date Disabled Not on file Not on file Not on file Last Filed Vital Signs Vital Sign Reading Time Taken Comments Blood Pressure 138/82 05/08/2022 11:08 AM [employer] Pulse 94 03/24/2022 4:20 PM [employer] Temperature 36.9 C (98.5 F) 03/24/2022 4:20 PM [employer] Respiratory Rate 16 03/24/2022 4:20 PM [employer] Oxygen Saturation 97% 03/24/2022 4:20 PM [employer] Inhaled Oxygen Concentration - - Weight 111.9 kg (246 lb 9.6 oz) 023 11:08 AM [employer] Height 154.9 cm (5' 1 ) 03/24/2022 6:50 AM [employer] Body Mass Index 46.59 03/24/2022 6:50 AM [employer] Plan of Treatment Not on file Procedures Procedure Name Priority Date/Time Associated Diagnosis Comments SCREENING MAMMOGRAM BILATERAL W NITESH Schedule Routine, Read Routine (OP Routine) 07/29/2023 7:00 AM CDT Screening mammogram, encounter for from Last 3 Months or Most Recently Relevant to Health Maintenance Results * Screening Mammogram Bilateral W Nitesh (07/29/2023 7:00 AM CDT) Anatomical Region Laterality Modality Breast Bilateral Mammography 07/29/2023 8:47 AM CDT Impressions 07/29/2023 8:47 AM CDT There is no mammographic evidence of malignancy. A 1 year screening mammogram is recommended. BI-RADS: 2 - Benign. The patient has been or will be contacted. The patient will be entered into a reminder system with a target due date of 1 year for her next mammogram. Electronically signed by: GEORGIA Salinas 07/29/2023 8:47 AM CDT EXAMINATION: SCREENING MAMMOGRAM BILATERAL W NITESH ORDERING HEALTHCARE PROVIDER: SELF SCREENING MAMMOGRAM HISTORY: Routine screening mammography. COMPARISON: 09/05/2021, 01/06/2021, 01/25/2018. TECHNIQUE: CC and MLO views of both breasts were obtained with digital technique using digital breast tomosynthesis with C view. Computer aided detection was utilized. FINDINGS: DENSITY: The breasts have scattered areas of fibroglandular density. BREASTS: Benign microcalcifications are again seen scattered throughout both breasts, including vascular calcified There is no new suspicious finding in either breast on mammogram. us Self Screening Mammogram IMG MAMMO PROCEDURES Fi nal Result from Last 3 Months or Most Recently Relevant to Health Maintenance Insurance [facility] [employer] MEDICARE HMO [facility] [employer] MEDICARE HMO Care Teams Humanities And Languages Professor Relationship Specialty Start Date End Date Vaughn Bradshaw MD [address] [place] [address] [place] [address] PCP - General Family Medicine 12/30/21 Vicenta Raymond DO [address] [address] Consulting Physician Obstetrics and Gynecology 09/09/21
--- OUTSIDE RECORDS SUMMARY | 2024-06-27 08:59 | XMS_ITS | Encounter Summary ---
Author Organization [facility] Address [address] [place] [address] Phone Care Team Providers Care Horse Doctor Name Role Phone Vaughn Bradshaw MD Primary Care Provider [phone] Claudia Horn APRN Unavailable Vicenta Raymond DO Unavailable Gus Chowdary MD Unavailable Kasey Williamson DO Primary Care Provider [phone] Virginie Reyes RN Unavailable Unavailable Virginie Reyes RN Unavailable Unavailable Virginie Reyes RN Unavailable Unavailable Kelley Lopez YARD GOODS SALESPERSON, PAINT AND TABLE EDGER Unavailable [phone] Reason for Visit * Reason Comments Medication Refill Encounter Details Date Type Department Care Team (Late st Contact Info) Description 06/24/2021 Refill [facility] [address] [place] [address] Vaughn Bradshaw MD [address] [place] [address] Medication Refill Social History Tobacco Use Types [...] encounter Miscellaneous Notes * Telephone Encounter - Anne John RN - 06/24/2021 12:36 PM CDT Name from pharmacy: FENOFIBRATE 200MG CAPSULES Will file in chart as: Fenofibrate 200 MG Capsule The original prescription was reordered on 06/24/2021 by Vaughn Bradshaw MD. documented in this encounter Plan of Treatment [...] documented as of this encounter Care Teams Horse Doctor Relationship Specialty Start Date End Date Vaughn Bradshaw MD PCP - General Family Medicine 05/18/18 08/26/23 Kasey Williamson DO [facility] [address] [place] [address] PCP - General Family Medicine 09/14/23 Claudia Horn APRN [address] [place] [address] Advanced Practice Nurse 08/16/18 Vicenta Raymond DO [address] [facility] [address] [place] [address] Consulting Physician Obstetrics & Gynecology 09/25/21 Gus Chowdary MD #[address] [facility] [address] [place] [address] Consulting Physician Colon and Rectal Surgery 07/23/22 Virginie Reyes, RN [place] Nurse Level Vial Inspector And Tester 09/14/23 09/14/23 Virginie Reyes, RN [place] Nurse Level Vial Inspector And Tester 11/19/23 11/29/23 Virginie Reyes, RN [place] Nurse Level Vial Inspector And Tester 12/07/23 05/15/24 Kelley Lopez APRN, PAINT AND TABLE EDGER #2 [facility] [address] [place] [address] Nurse Practitioner Advanced Practice Nurse 12/09/23 02/22/24 documented as of this encounter
--- OUTSIDE RECORDS SUMMARY | 2024-06-27 08:59 | XMS_ITS | Encounter Summary ---
Author Organization [facility] Address [address] [place] [address] Phone Care Team Providers Care Certifier Name Role Phone Vaughn Bradshaw MD Primary Care Provider Claudia Horn APRN Unavailable Vicenta Raymond DO Unavailable Gus Chowdary MD Unavailable Kasey Williamson DO Primary Care Provider [phone] Virginie Reyes RN Unavailable Unavailable Virginie Reyes RN Unavailable Unavailable Virginie Reyes RN Unavailable Unavailable Kelley Lopez IMPROVEMENT DIRECTOR, DAMPER MAKER Unavailable [phone] Reason for Visit * Reason Onset Date Comments Medication Refill 06/16/2021 Encounter Details Date Type Department Care Team (Late st Contact Info) Description 06/16/2021 Refill [facility] - Family [facility] [address] [place] [address] Vaughn Bradshaw MD [address] [place] [address] Medication Refill Social History Tobacco Use Types [...] encounter Miscellaneous Notes * Telephone Encounter - Vaughn Bradshaw MD - 06/17/2021 2:27 PM CDT Pt noted that she does not take this medication any more due to her cirrhosis, was on auto fill at pharmacy. * Telephone Encounter - Maria T Alejandre RN - 06/17/2021 9:27 AM CDT Per nursing clinical judgement, provider to review and approve the medication(s) order(s) if appropriate. Requested Prescriptions Pending Prescriptions Disp Refills ibuprofen (MOTRIN) 800 MG Tablet 30 Tablet 3 Sig: Take 1 Tablet by mouth every 8 hours. NSAIDs Protocol Failed - 06/16/2021 10:16 AM Failed - Active on medication list Passed - Normal serum creatinine in past 12 months CREATININE, BLOOD Date Value Ref Range Status 02/21/2021 1.08 0.60 - 1.10 mg/dL Final Passed - Visit with relevant provider in past 12 months or upcoming 90 days Recent Visits Date Type Provider Dept 04/21/21 Telemedicine Monae Jorgensen APRN, DAMPER MAKER [facility] [...] meeting all other requirements Passed - No matching NSAID med order in past 45 days No matching medication orders between 05/03/2021 9:27 AM and 06/17/2021 9:27 AM Passed - AST less than 55 or ALT less than 90 in past 12 months SGOT (AST) Date Value Ref Range Status 02/21/2021 30 <=32 U/L Final SGPT (ALT) Date Value Ref Range Status 02/21/2021 20 <=41 U/L Final Passed - HGB greater than 10 or HCT greater than 30 in past 12 months HEMOGLOBIN (HGB) Date Value Ref Range Status 02/21/2021 10.3 (L) 12.0 - 15.8 g/dL Final HEMATOCRIT (HCT) Date Value Ref Range Status 02/21/2021 33.0 (L) 36.0 - 47.0 % Final * Telephone Encounter - Lily Whatley - 06/16/2021 10:16 AM CDT Received a faxed Rx request from pharmacy. Reordered refill medication(s) requested and pended for nurse and physician/RUTH review. Refill encounter routed to nurse Viraj's pool for processing. documented in this encounter Plan of Treatment Not on file documented as of this encounter Visit Diagnoses Not on filedocumented in this encounter Additional Health Concerns Infection Onset Date Last Indicated Resolved Time COVID - 19 01/14/2022 01/14/2022 01/15/2022 7:59 AM CDT Respiratory Rule-Out 01/14/2022 01/14/2022 8:08 AM CDT COVID - 19 11/15/2023 11/15/2023 11/15/2023 11:4 7 PM CDT Assessment Noted Time PHQ-9 Depression Total Score: 0 10/04/19 21 9:00 AM CDT documented as of this encounter Care Teams Certifier Relationship Specialty Start Date End Date Vaughn Bradshaw MD PCP - General Family Medicine 05/18/18 08/26/23 Kasey Williamson DO 2 [facility] [address] [place] [address] PCP - General Family Medicine 09/14/23 Claudia Horn APRN [address] [place] [address] Advanced Practice Nurse 08/16/18 Vicenta Raymond DO [address] [address] Consulting Physician Obstetrics & Gynecology 09/25/21 Gus Chowdary MD #2 [facility] [address] [place] [address] Consulting Physician Colon and Rectal Surgery 07/23/22 Virginie Reyes, RN [place] Nurse Waxing Machine Operator Helper 09/14/23 09/14/23 Virginie Reyes, RN [place] Nurse Waxing Machine Operator Helper 11/19/23 11/29/23 Virginie Reyes, RN [place] Nurse Waxing Machine Operator Helper 12/07/23 05/15/24 Kelley Lopez APRN, DAMPER MAKER #2 [facility] [address] [place] [address] Nurse Practitioner Advanced Practice Nurse 12/09/23 02/22/24 documented as of this encounter
--- OUTSIDE RECORDS SUMMARY | 2024-06-27 08:59 | XMS_ITS | Encounter Summary ---
Author Organization [facility] Address [address] [place] [address] Phone Care Team Providers Care Web Services Architect Name Role Phone Claudia Horn APRN Unavailable Vicenta Raymond DO Unavailable Gus Chowdary MD Unavailable Kasey Williamson DO Primary Care Provider [phone] Virginie Reyes RN Unavailable Unavailable Virginie Reyes RN Unavailable Unavailable Kelley Lopez SUBWAY REPAIR SUPERVISOR, RATE EXAMINER Unavailable [phone] Reason for Visit * Reason Comments Medication Refill Encounter Details Date Type Department Care Team (Late st Contact Info) Description 11/09/2023 Refill [facility] #2 [place] [id number] Vaughn Bradshaw MD #1 [place] [address] Medication Refill Social History Tobacco Use Types Packs/Day Years Used Date Smoking Tobacco: Never Smokeless Tobacco: Never Alcohol Use Standard Drinks/Week Comments No 0 (1 standard drink = 0.6 oz pur e alcohol) [facility] Utilities Answer Date Recorded In the past 12 months has th e electric, gas, oil, or water [employer] threatened to shut off services in your [...] often do you attend chur ch or buddhist services? Never 08/04/2023 Do you belong to [...] Total Score - Questions 1-9 2 04/2023 [facility] - Occupational [...] place to sleep or slept in a fpc (including now)? No 08/04/2023 Education Answer Date [...] Encounter - Maria T Alejandre RN - 11/09/2023 9:46 AM CDT Images from the original note were not included. FLUoxetine HCl Dispensed Days Supply Quantity Provider Pharmacy FLUOXETINE 20MG CAPSULES 10/31/2023 90 180 Each Vaughn Bradshaw MD [facility] #... FLUOXETINE 20MG CAPSULES 07/30/2023 90 180 Each Vaughn Bradshaw MD [facility] #... Levothyroxine Sodium Dispensed Days Supply Quantity Provider Pharmacy LEVOTHYROXINE 0.05MG (50MCG) TAB 10/31/2023 90 90 Each Vaughn Bradshaw MD [facility] #... LEVOTHYROXINE 0.05MG (50MCG) TAB 07/30/2023 90 90 Each Vaughn Bradshaw MD [facility] #... documented in this encounter [...] Depression Total Score: 2 03/23/19 8:19 AM TANK TRUCK MILK RECEIVER documented as of this encounter Care Teams Web Services Architect Relationship Specialty Start Date End Date Kasey Williamson DO [address] [place] [address] PCP - General Family Medicine 09/14/23 Claudia Horn APRN [address] [place] [address] Advanced Practice Nurse 08/16/18 Vicenta Raymond DO [address] [place] [address] Consulting Physician Obstetrics & Gynecology 09/25/21 Gus Chowdary MD #2 [facility] [address] [place] [address] Consulting Physician Colon and Rectal Surgery 07/23/22 Virginie Reyes, RN [place] Nurse Body Maker Machine Setter 11/19/23 11/29/23 Virginie Reyes RN [place] Nurse Body Maker Machine Setter 12/07/23 05/15/24 Kelley Lopez, SUBWAY REPAIR SUPERVISOR, RATE EXAMINER #2 [facility], [address] [place] [address] Nurse Practitioner Advanced Practice Nurse 12/09/23 02/22/24 documented as of this encounter
--- OUTSIDE RECORDS SUMMARY | 2024-06-27 08:59 | XMS_ITS | Encounter Summary ---
Author Organization [facility] Address [address] [place] [address] Phone Care Team Providers Care Network Support Specialist Name Role Phone Vaughn Bradshaw MD Primary Care Provider [phone] Claudia Horn APRN Unavailable [phone] Vicenta Raymond DO Unavailable Gus Chowdary MD Unavailable Kasey Williamson DO Primary Care Provider [phone] Virginie Reyes RN Unavailable Unavailable Virginie Reyes RN Unavailable Unavailable Virginie Reyes RN Unavailable Unavailable Kelley oLpez PHYSICAL MEDICINE PHYSICIAN, LABEL FOLDER Unavailable [phone]- [phone] Reason for Visit * Reason Comments Medication Refill Encounter Details Date Type Department Care Team (Late st Contact Info) Description 06/16/2021 Refill [facility] - Family [facility] #2 [place] [address] Vaughn Bradshaw MD #1 [place] [address] Medication Refill Social History Tobacco Use Types [...] Encounter - Maria T Alejandre RN - 06/16/2021 3:22 PM CDT Refills on file documented in this encounter Plan of Treatment [...] documented as of this encounter Care Teams Network Support Specialist Relationship Specialty Start Date End Date Vaughn Bradshaw MD PCP - General Family Medicine 05/18/18 08/26/23 Kasey Williamson DO [address] [place] [address] PCP - General Family Medicine 09/14/23 Claudia Horn APRN [address] [place] [address] Advanced Practice Nurse 08/16/18 Vicenta Raymond DO ONE [address] [facility] [address] [place] [address] Consulting Physician Obstetrics & Gynecology 09/25/21 Gus Chowdary MD #2 [facility] [address] [place] [address] Consulting Physician Colon and Rectal Surgery 07/23/22 Virginie Reyes, RN [place] Nurse Risk Lead 09/14/23 09/14/23 Virginie Reyes, RN [place] Nurse Risk Lead 11/19/23 11/29/23 Virginie Reyes, RN [place] Nurse Risk Lead 12/07/23 05/15/24 Kelley Lopez APRN, LABEL FOLDER #2 [facility] [address] [place] [address] Nurse Practitioner Advanced Practice Nurse 12/09/23 02/22/24 documented as of this encounter
--- OUTSIDE RECORDS SUMMARY | 2024-06-27 09:00 | XMS_ITS | Encounter Summary ---
Author Organization [facility] Address [address] [place] [address] Phone Care Team Providers Care Combination Machine Tool Operator Name Role Phone Vaughn Bradshaw MD Primary Care Provider [phone] Claudia Horn APRN Unavailable [phone] Vicenta Raymond DO Unavailable [phone] Gus Chowdary MD Unavailable Kasey Williamson DO Primary Care Provider [phone] Virginie Reyes RN Unavailable Unavailable Virginie Reyes RN Unavailable Unavailable Virginie Reyes RN Unavailable Unavailable Kelley Lopez CONTENT MANAGER, QUALITY SPECIALIST Unavailable [phone] Reason for Visit * Reason Comments Medication Refill Encounter Details Date Type Department Care Team (Late st Contact Info) Description 03/28/2022 Refill [facility] - Family [facility] [address] [place] [address] Vaughn Bradshaw MD #[address] [place] [address] Medication Refill Social History Tobacco Use Types Packs/Day Years Used Date Smoking Tobacco: Never Smokeless Tobacco: Never Alcohol Use Standard Drinks/Week Comments No 0 (1 standard drink = 0.6 oz pur e alcohol) PHQ-2 Answer Date Recorded Total Score - Questions 1-9 0 10/20 Education Answer Date Recorded What is the highest level of school you have completed or the highest degree you have received? 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 SCHOOL BIOLOGY TEACHER documented in this encounter Plan of Treatment Not on file documented as of this encounter Visit Diagnoses Diagnosis Anxiety and depression Dysthymic disorder documented in this encounter Additional Health Concerns Infection Onset Date Last Indicated Resolved Time COVID - 19 11/15/2023 11/15/2023 11/15/2023 11:4 7 PM CDT Assessment Noted Time PHQ-9 Depression Total Score: 0 11/05/19 22 9:00 AM CDT documented as of this encounter Care Teams Combination Machine Tool Operator Relationship Specialty Start Date End Date Vaughn Bradshaw MD PCP - General Family Medicine 05/18/18 08/26/23 Kasey Williamson DO [address] [facility] [address] [address] PCP - General Family Medicine 09/14/23 Claudia Horn APRN [address] [place] [address] Advanced Practice Nurse 08/16/18 Vicenta Raymond DO [address] [place] [address] Consulting Physician Obstetrics & Gynecology 09/25/21 Gus Chowdary MD #2 [facility] [address] [place] [address] Consulting Physician Colon and Rectal Surgery 07/23/22 Virginie Reyes, RN [place] Nurse Merchandising Director 09/14/23 09/14/23 Virginie Reyes, RN [place] Nurse Merchandising Director 11/19/23 11/29/23 Virginie Reyes, RN [place] Nurse Merchandising Director 12/07/23 05/15/24 Kelley Lopez, CONTENT MANAGER, QUALITY SPECIALIST #2 [facility] [address] [place] [address] Nurse Practitioner Advanced Practice Nurse 12/09/23 02/22/24 documented as of this encounter
--- OUTSIDE RECORDS SUMMARY | 2024-06-27 09:00 | XMS_ITS | Encounter Summary ---
Author Organization [facility] Address [address] [place] [address] Phone Care Team Providers Care Bureau Director Name Role Phone Vaughn Bradshaw MD Primary Care Provider [phone] Claudia Horn APRN Unavailable Vicenta Raymond DO Unavailable Gus Chowdary MD Unavailable Kasey Williamson DO Primary Care Provider [phone] Virginie Reyes RN Unavailable Unavailable Virginie Reyes RN Unavailable Unavailable Virginie Reyes RN Unavailable Unavailable Kelley Lopez PASTEURIZER HELPER, CAGE TENDER Unavailable [phone] Reason for Visit * Reason Comments Medication Refill Encounter Details Date Type Department Care Team (Late st Contact Info) Description 04/04/2022 Refill [facility] - Family [facility] #2 [place] [address] Vaughn Bradshaw MD #[address] [place] [address] Medication Refill Social History Tobacco Use Types [...] Telephone Encounter - Prerna Mann RN - 04/06/2022 8:34 AM TOOL AND EQUIPMENT RENTAL CLERK Medication filled 04/04/2022 AND EQUIPMENT RENTAL CLERK documented in this encounter Plan of Treatment Not on file documented as of this encounter Visit Diagnoses Not on filedocumented in this encounter Additional Health Concerns Infection Onset Date Last Indicated Resolved Time COVID - 19 11/15/2023 11/15/2023 11/15/2023 11:4 7 PM CDT Assessment Noted Time PHQ-9 Depression Total Score: 0 11/05/19 22 9:00 AM CDT documented as of this encounter Care Teams Bureau Director Relationship Specialty Start Date End Date Vaughn Bradshaw MD PCP - General Family Medicine 05/18/18 08/26/23 Kasey Williamson DO 2 [facility] [address] [facility] [address] [place] [address] PCP - General Family Medicine 09/14/23 Claudia Horn APRN [address] [place] [address] Advanced Practice Nurse 08/16/18 Vicenta Raymond DO [address] [place] [address] Consulting Physician Obstetrics & Gynecology 09/25/21 Gus Chowdary MD #2 [facility] [address] [place] [address] Consulting Physician Colon and Rectal Surgery 07/23/22 Virginie Reyes, RN [place] Nurse Crm Business Analyst 09/14/23 09/14/23 Virginie Reyes, RN [place] Nurse Crm Business Analyst 11/19/23 11/29/23 Virginie Reyes, RN [place] Nurse Crm Business Analyst 12/07/23 05/15/24 Kelley Lopez, PASTEURIZER HELPER, CAGE TENDER #2 [facility] [address] [place] [address] Nurse Practitioner Advanced Practice Nurse 12/09/23 02/22/24 documented as of this encounter
--- OUTSIDE RECORDS SUMMARY | 2024-06-27 09:00 | XMS_ITS | Encounter Summary ---
Author Organization [facility] Address [address] [place] [address] Care Team Providers Care Intelligence Consultant Name Role Phone Terence Dela Cruz MD Primary Care Provider Unava ilTerence Reyes MD Primary Care Provider Unava ilTerence Reyes MD Primary Care Provider Unava ilable Terence Dela Cruz MD Primary Care Provider Unava ilable Terence Dela Cruz MD Primary Care Provider Unava ilable Encounter Details Date Type Department Care Team (Late st Contact Info) Description 03/10/2013 Abstract [facility] CONVERSION [address] [place] [address] , Generic MD Dary Social History Tobacco Use Types Packs/Day Years Used Date Smoking Tobacco: Never Assessed Comments Unknown Sex and Gender Information Value Date Recorded Sex Assigned at Not on file Legal Sex Female 4:26 PM CDT Gender Identity Not on file Sexual Orientation Not on file documented as of this encounter Plan of Treatment Not on file documented as of this encounter Visit Diagnoses Not on filedocumented in this encounter Care Teams Intelligence Consultant Relationship Specialty Start Date End Date Terence Dela Cruz MD PCP - General 12/15/13 Terence Dela Cruz MD PCP - General 12/14/13 12/14/13 Terence Dela Cruz MD PCP - General 09/20/13 12/13/13 Terence Dela Cruz MD PCP - General 09/13/13 09/19/13 Terence Dela Cruz MD PCP - General 08/23/13 09/12/13 documented as of this encounter
--- OUTSIDE RECORDS SUMMARY | 2024-06-27 09:00 | XMS_ITS | Encounter Summary ---
Author Organization [facility] Address [address] [place] [address] Phone Care Team Providers Care Mash Tub Cooker Name Role Phone Vaughn Bradshaw MD Primary Care Provider [phone] Claudia Horn APRN Unavailable [phone] Vicenta Raymond DO Unavailable Gus Chowdary MD Unavailable Kasey Williamson DO Primary Care Provider [phone] Virginie Reyes RN Unavailable Unavailable Virginie Reyes RN Unavailable Unavailable Virginie Reyes RN Unavailable Unavailable Kelley Lopez PREMIUM CARD CANCELLATION CLERK, REMOTE CONTROL ASSEMBLER Unavailable [phone] Reason for Visit * Reason Comments Medication Refill Encounter Details Date Type Department Care Team (Late st Contact Info) Description 04/03/2022 Refill [facility] - Family [facility] #2 [place] [address] Vaughn Bradshaw MD #[address] [place] [address] Medication Refill Social History Tobacco Use Types [...] Encounter - Maria T Alejandre RN - 04/03/2022 10:34 AM CST PRN medication requires review from provider [...] Short Acting Inhaled Beta-Agonists Protocol Passed - 04/03/2022 3:55 AM Passed - Visit with relevant provider in past 12 months or upcoming 90 days Recent Visits Date Type Provider Dept 02/03/22 Office Visit Vaughn Bradshaw MD [facility] 12/16/21 Office Visit Vaughn Bradshaw MD [facility] 11/04/21 Office Visit Vaughn Bradshaw MD [facility] 07/04/21 Office Visit Vaughn Bradshaw MD [facility] 04/21/21 Telemedicine Monae Jorgensen APRN, REMOTE CONTROL ASSEMBLER Kyleamee Alfonso Showing recent visits within past 365 days and meeting all other requirements Future Appointments Date Type Provider Dept 06/04/22 Appointment Vaughn Bradshaw MD [facility] Showing future appointments within next 90 days and meeting all other requirements FIXTURE ASSEMBLER documented in this encounter Plan of Treatment Not on file documented as of this encounter Visit Diagnoses Not on filedocumented in this encounter Additional Health Concerns Infection Onset Date Last Indicated Resolved Time COVID - 19 11/15/2023 11/15/2023 11/15/2023 11:4 7 PM CDT Assessment Noted Time PHQ-9 Depression Total Score: 0 11/05/19 9:00 AM CDT documented as of this encounter Care Teams Mash Tub Cooker Relationship Specialty Start Date End Date Vaughn Bradshaw MD PCP - General Family Medicine 05/18/18 08/26/23 Kasey Williamson DO 2 [facility] [address] [facility] [address] [place] [address] PCP - General Family Medicine 09/14/23 Claudia Horn APRN [address] [place] [address] Advanced Practice Nurse 08/16/18 Vicenta Raymond DO [address] [facility] [address] [place] [address] Consulting Physician Obstetrics & Gynecology 09/25/21 Gus Chowdary MD #2 [facility] [address] [place] [address] Consulting Physician Colon and Rectal Surgery 07/23/22 Virginie Reyes, RN [place] Nurse Gericare Aide 09/14/23 09/14/23 Virginie Reyes, RN [place] Nurse Gericare Aide 11/19/23 11/29/23 Virginie Reyes, RN [place] Nurse Gericare Aide 12/07/23 05/15/24 Kelley Lopez APRN, REMOTE CONTROL ASSEMBLER #2 [facility] [address] [place] [address] Nurse Practitioner Advanced Practice Nurse 12/09/23 02/22/24 documented as of this encounter
--- OUTSIDE RECORDS SUMMARY | 2024-06-27 09:00 | XMS_ITS | Clinical Summary ---
Author Organization [facility] Address [address] [facility], [facility] [address] [place] [address] Phone Care Team Providers Care Engine Inspector Name Role Phone Claudia Horn APRN Unavailable [phone] Vicenta Raymond DO Unavailable [phone] Gus Chowdary MD Unavailable Kasey Williamson DO Primary Care Provider [phone] Allergies Active Allergy Reactions Criticality Noted Date Comments Trichophyton Runny Nose,Unknown High 11/21/2017 Coughing, watery eyes Nsaids Unknown 09/14/2023 Other Runny Nose Medium 05/16/2018 [facility] Water eyes Medications [place]-3 Fatty Acids (OMEGA 3 PO) Take by mouth in the morning and at bedtime. Active Blood Glucose Monitoring Suppl (ACCU-CHEK SILVANA PLUS) w/Device Kit Use daily as directed. DX E11.9 1 Kit 08/31/19 19 Active Alcohol Swabs PadsIndications: Type 2 diabetes mellitus with hyperglycemia, with long-term current use of insulin (HCC) Use one swab with each injection 100 Swab 3 03/30/19 20 Active Lido-Prilocaine & Lidocaine 2.5-2.5 & 4 % Kit Apply externally prn. 1 Kit 2 03/30/19 20 Active triamcinolone (KENALOG) 0.1 % Cream Apply to skin lesion on arm bid. 45 g 1 03/30/19 20 Active ferrous sulfate 325 (65 Fe) MG TabletIndication s:Pancytopenia Take 1 Tablet by mouth daily. 30 Tablet 5 01/21/20 21 Active fenofibrate micronized (LOFIBRA) 200 MG Capsule Take 1 Capsule by mouth daily. 90 Capsule 06/25/19 22 Active clotrimazole-bet amethasone (LOTRISONE) 1-0.05 % Lotion APPLY TOPICALLY TO THE AFFECTED AREA TWICE DAILY NEEDED FOR RASH 05/08/19 23 Active nadolol (CORGARD) 20 MG TabletIndication s:Essential hypertension TAKE 1 TABLET BY MOUTH DAILY 90 Tablet 2 06/25/19 23 Active azelastine (OPTIVAR) 0.05 % Solution INSTILL 1 DROP INTO BOTH EYES TWICE DAILY 18 mL 07/16/19 23 Active NEOMYCIN-POLYMYX IN-HC, OTIC, 1 % SolutionIndicati ons:Non-recurren t acute suppurative otitis media of left ear without spontaneous rupture of tympanic membrane Place 3 Drops in affected ear(s) 3 times daily. Use in affected ear(s) as directed. 10 mL 09/18/19 23 Active insulin aspart (NovoLOG) 100 UNIT/ML Solution Pen-injector 10 Units by Subcutaneous route 3 times daily (after meals). 9 mL 11 11/03/19 23 Active Additional Information Patient taking differently:10 Units Subcutaneous 3 TIMES DAILY AFTER MEALS,Taking PRN, based on FSBS, Reported on 03/16/2024 traMADol (ULTRAM) 50 MG TabletIndication s:Chronic left shoulder pain Take 1 Tablet by mouth every 6 hours as needed for Moderate or more severe pain. 120 Tablet 12/18/19 23 Active simvastatin (ZOCOR) 40 MG Tablet TAKE 1 TABLET BY MOUTH DAILY 90 Tablet 1 02/02/20 23 Active Insulin Pen Needle (Easy Touch Pen Br[place]well) 31G X 8 MM MiscIndications: Type 2 diabetes mellitus with hyperglycemia, with long-term current use of insulin (HCC) USE FOUR TIMES DAILY DIRECTED 200 Pen Needle 5 02/24/20 23 Active allopurinol (ZYLOPRIM) 300 MG Tablet Take 1 Tablet by mouth daily. 09/19/19 22 Active cyanocobalamin 1000 MCG Tablet Take 1 Tablet by mouth daily. 04/21/19 22 Active pramipexole (MIRAPEX) 0.5 MG TabletIndication s:Restless leg syndrome TAKE 1/2 TABLET BY MOUTH EVERY NIGHT 45 Tablet 1 04/13/19 24 Active dicyclomine (BENTYL) 20 MG Tablet Take 1 Tablet by mouth 2 times daily. 02/07/20 21 Active fexofenadine (Anabelle Allergy) 180 MG TabletIndication s:Subacute maxillary sinusitis Take 1 Tablet by mouth daily. 90 Tablet 3 05/04/19 24 Active FLUoxetine (PROzac) 20 MG CapsuleIndicatio ns:Moderate episode of recurrent major depressive disorder (HCC) TAKE 2 CAPSULES BY MOUTH DAILY 180 Capsule 1 07/30/19 24 Active fluticasone (FLONASE) 50 MCG/ACT SuspensionIndica tions:Seasonal allergies 1-2 Sprays by Nasal route daily. Use in each nostril as directed. 1 g 11 09/14/19 24 Active lactulose (CHRONULAC) 10 GM/15ML Solution Take 10 mL by mouth daily. 300 mL 11 09/14/19 24 Active Xifaxan 550 MG Tablet Take 1 Tablet by mouth 2 times daily. 60 Tablet 11 09/14/19 24 Active Melatonin 5 MG TabletIndication s:Insomnia, unspecified type TAKE 1 TABLET BY MOUTH EVERY NIGHT 30 Tablet 09/15/19 24 Active ergocalciferol (VITAMIN D) 45506 UNIT Capsule Take 1 Capsule by mouth once a week. 12 Capsule 09/15/19 24 Active EPINEPHrine (EpiPen 2-Harshil) 0.3 MG/0.3ML Solution Auto-injector 0.3 mL by Intramuscular route once as needed for Anaphylaxis. 1 mL 3 11/16/19 24 Active Accu-Chek Silvana Plus StripIndications :Type 2 diabetes mellitus with hyperglycemia, with long-term current use of insulin ([facility]) TEST BLOOD SUGAR FOUR TO FIVES TIMES DAILY 500 Strip 3 02/16/20 24 Active Accu-Chek Softclix Lancets MiscIndications: Type 2 diabetes mellitus with hyperglycemia, with long-term current use of insulin ([facility]) TEST BLOOD GLUCOSE 4 TO 5 TIMES DAILY 500 Each 3 02/16/20 24 Active metFORMIN (GLUCOPHAGE) 1000 MG TabletIndication s:Type 2 diabetes mellitus with hyperglycemia, with long-term current use of insulin ([facility]) TAKE 1 TABLET BY MOUTH TWICE DAILY WITH MEALS 180 Tablet 1 03/05/20 24 Active cyclobenzaprine (FLEXERIL) 10 MG Tablet Take 10 mg by mouth. 02/14/20 24 Active montelukast (SINGULAIR) 10 MG Tablet Take 1 Tablet by mouth every evening. 90 Tablet 04/12/19 25 Active busPIRone HCl 7.5 MG TabletIndication s:Anxiety and depression Take 1 Tablet by mouth 2 times daily. 180 Tablet 2 04/21/19 25 Active albuterol 108 (90 Base) MCG/ACT Aerosol Solution INHALE 2 PUFFS BY MOUTH EVERY 4 HOURS NEEDED FOR WHEEZING OR COUGH 54 g 1 04/27/19 25 Active Ubrogepant (Ubrelvy) 50 MG TabletIndication s:Chronic migraine without aura without status migrainosus, not intractable Take 1 tablet by mouth at onset of headache. May repeat dose in 2 hours if no relief. Max of 2 tablets in 24 hours. 16 Tablet 05/03/19 25 Active azelastine (ASTELIN) 0.1 % SolutionIndicati ons:Subacute maxillary sinusitis 2 Sprays by Nasal route 2 times daily. Use in each nostril as directed 30 mL 2 05/03/19 25 Active levothyroxine (SYNTHROID) 50 MCG Tablet Take 1 Tablet by mouth daily. 90 Tablet 1 06/14/19 25 Active cetirizine (ZyrTEC) 10 MG Tablet TAKE 1 TABLET BY MOUTH DAILY 30 Tablet 11 06/23/19 24 025 levothyroxine (SYNTHROID) 50 MCG Tablet TAKE 1 TABLET BY MOUTH DAILY 90 Tablet 1 07/30/19 24 025 Discontinu ed(Reorder ) Active Problems Problem Noted Date Diagnosed Date Mitral stenosis 11/18/2023 Morbid obesity 01/14/2022 Postmenopausal bleeding 09/04/2021 Overview (11/04/2021): Added automatically from request for surgery [id number] Need for influenza vaccination 01/30/2019 Hypertension 05/18/2018 Hyperlipidemia 05/18/2018 Hypothyroid 05/18/2018 Arthritis 05/18/2018 Thrombocytopenia due to hypersplenism 05/18/2018 Migraines 05/18/2018 Iron deficiency anemia due to chronic blood loss 12/10/2017 Pancytopenia 12/10/2017 Splenomegaly 12/10/2017 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 12/10/2017 Diabetes mellitus 03/22/2003 Depression Resolved Problems Problem Noted Date Diagnosed Date Resolved Date Chest pain in adult 11/16/2023 11/18/19 Hepatic encephalopathy 01/14/202212/07 Acute cystitis 01/14/2022 12/07/2022 High blood sugar 05/23/2018 01/30/2019 Encounter for immunization 05/18/2018 1 04/01/2018 Acute non-recurrent maxillary sinusitis 05/18/2018 01/30/2019 Encounters Date Type Department Care Team Description 06/12/2024 Telephone [facility] [address] [place] [address] Kasey Williamson, DO Advice Only 06/01/2024 Travel 05/16/2024 [facility] [place] [address] Kasey Williamson, DO 05/15/2024 Patient Outreach [facility] [address] [place] [address] Virginie Reyes, RN Care Management ( RN Graduated ) 05/08/2024 Travel 05/03/2024 [facility] [place] [address] Vaughn Bradshaw MD Medication Refill 05/01/2024 [facility] [place] [address] Kasey Williamson, DO Medication Refill 04/25/2024 [facility] [place] [address] Vaughn Bradshaw MD Medication Refill 04/19/2024 MyChart RX [facility]al [facility] [place] [address] Kaesy Williamson DO Medication Renewal Reviewed 04/17/2024 3:57 PM HEALTH INSPECTOR - 04/17/2024 11:59 PM HEALTH INSPECTOR Hospital Encounter [facility] Ultrasound [address] [place] [address] Allison Leavitt APRN, LINEN ROOM HOUSEPERSON Discharge Disposition: Discharged to home or Selfcare 04/17/2024 Travel 04/17/2024 Patient Outreach [facility] [address] [place] [address] Virginie Reyes RN Care Management ([facility]) 04/16/2024 Travel 04/15/2024 Refill [facility] [address] [place] [address] Vaughn Bradshaw MD Medication Refill 04/12/2024 MyChart RX Renewal [facility] [address] [place] [address] Vaughn Bradshaw MD Medication Renewal Reviewed 04/10/2024 MyChart RX Renewal [facility] [address] [place] [address] Vaughn Bradshaw MD Medication Renewal Reviewed 04/10/2024 Travel 04/05/2024 Transcribe Orders [facility] Central Scheduling [address] [place] [address] Allison Leavitt APRN, FIGUEROA NASCIMENTO (nonalcoholic steatohepatitis) (Primary Dx); Other cirrhosis of liver (HCC); Generalized abdominal pain from Last 3 Months Immunizations Immunization Administration Dates Next Due Covid-19, Mrna, Lnp-s, PF, 1 00 mcg/0.5 mL Dose (Moderna) 11/16/2020,10/19/2020 Hepatitis A And Hepatitis B Vaccine 02/17/2018 Influenza Vaccine, Quadrivalent, PF 11/20,02/03/2022,01/20/2021,01/30 Influenza, Injectable, Mdck,quadrivalent,with Preservative 02/17/2018 Influenza,Split Virus,Trivalent,Injectable,PF 03/05/2024 Pneumococcal Vaccine Adult - 23 Valent 8 Pneumococcal conjugate PCV20 , polysaccharide [id number] conjugate, adjuvant, PF 12/07/2022 TDAP Vaccine 05/18/2018 Family History Medical History Relation Name Comments No Known Problems Brother Cancer Father Barron He had cancer i n his nose, lips, and pallet Diabetes Father Barron Heart Attack Father Barron Put in pacemake r. Stroke and heart attack. Plus cancer in his palket, nose and lip Migraines Father Barron Pacemaker Father Barron Seizures Father Barron Stroke Father Barron Cancer Maternal Grandfather Leukemi a Diabetes Maternal Grandmother Mary Ellen Lost 1 leg to the knee Heart Attack Mother Mimi Massive at 47 Hypertension Mother Mimi Cancer Paternal Aunt Patricia Ovarian Heart Attack Paternal Grandfather Cancer Paternal Grandmother Prerna More ca ncer then they named Thyroid Disease Sister Pam Relation Name Status Comments Brother Alive Father Barron Maternal Grandfather Maternal Grandmother Mary Ellen Mother Mimi Paternal Aunt Patricia Paternal Grandfather Paternal Grandmother Prerna Sister Pam Alive Social History Tobacco Use Types Packs/Day Years Used Date Smoking Tobacco: Never Smokeless Tobacco: Never Tobacco Cessation:Counseling Given: No Alcohol Use Standard Drinks/Week Comments No 0 (1 standard drink = 0.6 oz pur e alcohol) [facility] Utilities Answer Date Recorded In the past 12 months has [employer]'s Solar, oil, or water [id number] threatened to shut off services in your [...] 05/06/2024 How often do you attend chur or scientologist services? Never 05/06/2024 Do you belong to any clubs o r organizations such as temple groups, unions, fraternal or athletic groups, or [...] Total Score - Questions 1-9 0 11/20 [facility] - Occupational Stress Questionnaire Answer Date Recorded [...] place to sleep or slept in a detention (including now)? No 08/04/2023 Housing Stability Vital Sign Answer Jose e Recorded In the last 12 months, was t here a time when you were not able to pay the mortgage or rent on time? No 05/06/2024 In the past 12 months, how m any times have you moved where you were living? 0 05/06/2024 At any time in the past 12 m [facility], were you homeless or living in a detention (including now)? Yes 05/06/2024 Education Answer Date [...] Sign Reading Time Taken Comments Blood Pressure 148/80 03/16/2024 10:03 AM HEALTH INSPECTOR Pulse 70 03/16/2024 10:03 AM HEALTH INSPECTOR Temperature 36.1 C (97 F) 03/16/2024 10:03 AM HEALTH INSPECTOR Respiratory Rate 16 03/16/2024 10:03 AM HEALTH INSPECTOR Oxygen Saturation 97% 03/16/2024 10:03 AM HEALTH INSPECTOR Inhaled Oxygen Concentration - - Weight 92.5 kg (204 lb) 03/16/2024 10:03 AM HEALTH INSPECTOR Height 154.9 cm (5' 1 ) 03/16/2024 10:03 AM HEALTH INSPECTOR Body Mass Index 38.55 03/16/2024 10:03 AM HEALTH INSPECTOR Plan of Treatment Health Maintenance Due Date Last Done Comments Cologuard 10/01/2013 Immunochemical Fecal Occult Blood 10/01/2013 Zoster Immunization (1 of 2) 10/01/2013 Colonoscopy 01/11/2021 01/11/2018, 11/24/2016 Colorectal Cancer Screening 01/11/2021 Diabetes: Foot Exam 08/07/2023 08/06/2022, 08/06/2022, 08/06/2022, Additional history exists Diabetes: Eye Exam 12/23/2023 12/22/2022, 09/04/2021, 02/24/2021 Mammogram 07/28/2024 07/29/2023, 07/29/2023, 01/06/2021, Additional history exists Diabetes: Nephropathy Screening 11/14/2024 11/15/2023, 12/07/2022, 07/06/2022, Additional history exists Diabetes: Hemoglobin A1c 12/08/2024 025, 03/02/2024, 11/15/2023, Additional history exists Respiratory Syncytial Virus (RSV) Immunization (Adult) (1 - Risk 60-74 years 1-dose series) 05/24/2025 Postponed from 2023 (Patient Temporarily Declines) Td Immunization Every 10 Years (Adults With 1 Tdap) 05/18/2028 05/18/2018 01/11/2018, 11/24/2016 Hepatitis C Virus (HCV) Screening Completed 12/10/2017 Pap Smear Discontinued 12/21/2017 Hepatitis B Immunization Discontinued 02/17/2018 SARS-COV-2 Immunization Discontinued 05/17/19 22, 11/16/2020, 10/19/2020 Pneumococcal Immunization (50+ years) Completed 12/07/2022, 02/17/2018 Pneumococcal Immunization Combined Discontinued 12/07/2022, 02/17/2018 Influenza Immunization Completed , 12/07/2022, 02/03/2022, Additional history exists Cervical Cancer Screening (CCS) Discontinued HPV/Cotest Discontinued Meningococcal Immunization (ACWY) Aged Out No longer eligible based on patient's age to complete this topic Rotavirus Immunization Aged Out No lo nger eligible based on patient's age to complete this topic Procedures Procedure Name Priority Date/Time Associated Diagnosis Comments US ABDOMEN LIMITED LEVEL 3 THREE ORGAN Routine 04/17/2024 4:47 PM HEALTH INSPECTOR NASCIMENTO (nonalcoholic steatohepatitis) Other cirrhosis of liver (HCC) Generalized abdominal pain CMP (COMPREHENSIVE METABOLIC PANEL) STAT 11/15/2023 11:01 PM CDT HEMOGLOBIN A1C W/ ESTIMATED GLUCOSE STAT 11/15/2023 11:01 PM CDT ARNOLD SCREENING BILATERAL DIGITAL W CAD W [place] Routine 07/29/2023 12:00 AM CDT Breast cancer screening by mammogram HM DILATED EYE EXAM 12/22/2022 1 2:00 AM CDT PATHOLOGY CYTOLOGY DEFENSIVE DRIVING INSTRUCTOR Routine 12/21/2017 HEPATITIS C ANTIBODY Routine 12/10/2017 9:23 AM CDT Pancytopenia (HCC) Iron deficiency anemia due to chronic blood loss Splenomegaly from Last 3 Months or Most Recently Relevant to Health Maintenance Results * US ABDOMEN LIMITED LEVEL 3 THREE ORGAN (04/17/2024 4:47 PM HEALTH INSPECTOR) Anatomical Region Laterality Modality Abdomen N/A Ultrasound 04/18/2024 3:02 PM HEALTH INSPECTOR Impressions 04/18/2024 3:04 PM HEALTH INSPECTOR IMPRESSION: 1. Limited examination due to habitus. Sonographic findings of chronic underlying liver disease with perihepatic ascites. Narrative 04/18/2024 3:04 PM HEALTH INSPECTOR EXAM DESCRIPTION: US ABDOMEN LIMITED LEVEL 3 THREE ORGAN REASON FOR STUDY: NASCIMENTO PAIN TECHNIQUE: Ultrasound of the right upper quadrant of the abdomen was performed with grayscale and color doppler. COMPARISON: CT dated 11/16/2023 FINDINGS: Examination limited by habitus. PANCREAS: Obscured by overlying bowel gas. LIVER: The liver is normal in size. Mild heterogeneous echogenicity and coarsened liver echotexture. Undulating surface appearance is noted. No definite liver lesion is seen on the images provided. Antegrade flow is documented within the visualized main portal vein measuring 1.4 cm. At least moderate perihepatic ascites is noted. GALLBLADDER: Absent. BILIARY: Gross biliary ductal dilatation. Common bile duct measures 4 mm. RIGHT KIDNEY: Partially obscured. Measures approximately 8.6 cm and is small in size. Increased echogenicity. No gross hydronephrosis. THIS IS AN ELECTRONICALLY VERIFIED FINAL REPORT 04/18/2024 3:02 PM - Electronically signed by Rico Du M.D. AG: MARGOTH Report ID: [id number] Reading Location: [id number] Procedure Note Rico Du MD - 04/18/2024 EXAM DESCRIPTION: US ABDOMEN LIMITED LEVEL 3 THREE ORGAN REASON FOR STUDY: NASCIMENTO PAIN TECHNIQUE: Ultrasound of the right upper quadrant of the abdomen was performed with grayscale and color doppler. COMPARISON: CT dated 11/16/2023 FINDINGS: Examination limited by habitus. PANCREAS: Obscured by overlying bowel gas. LIVER: The liver is normal in size. Mild heterogeneous echogenicity and coarsened liver echotexture. Undulating surface appearance is noted. No definite liver lesion is seen on the images provided. Antegrade flow is documented within the visualized main portal vein measuring 1.4 cm. At least moderate perihepatic ascites is noted. GALLBLADDER: Absent. BILIARY: Gross biliary ductal dilatation. Common bile duct measures 4 mm. RIGHT KIDNEY: Partially obscured. Measures approximately 8.6 cm and is small in size. Increased echogenicity. No gross hydronephrosis. THIS IS AN ELECTRONICALLY VERIFIED FINAL REPORT 04/18/2024 3:02 PM - Electronically signed by Rico Du M.D. AG: AG Report ID: [id number] Reading Location: [id number] IMPRESSION: 1. Limited examination due to habitus. Sonographic findings of chronic underlying liver disease with perihepatic ascites. us Allison Leavitt TALENT ACQUISITION MANAGER, LINEN ROOM HOUSEPERSON IMG US ORDERA BLES Final Result * (ABNORMAL) Hemoglobin A1C (if indicated) (11/15/2023 11:01 PM CDT) HGB-A1C 6.1(H) 4.0 - 6.0 % 11/16/2023 4:12 AM CDT [email or web address] Est Average Glucose 128.4 mg/dL 11/16/2023 4:12 AM CDT [email or web address] Blood Venipuncture / Unknown 11/15/2023 11:01 PM CDT 11/15/2023 11:08 PM CDT Narrative [facility] - 11/16/2023 4:12 AM CDT HEMOGLOBIN A1C: DIABETIC PATIENTS: WELL-CONTROLLED: 6.2 - 7.0 INTERMEDIATE WELL-CONTROLLED: 7.0 - 9.0 POORLY-CONTROLLED: >9.0 us Sylwia Parada TALENT ACQUISITION MANAGER, LINEN ROOM HOUSEPERSON CHEMISTRY ORDERABLES Fi nal Result [facility] [address] [place] [address] * (ABNORMAL) Comprehensive Metabolic Panel (Cmp) [id number] (11/15/2023 11:01 PM CDT) SODIUM 139 136 - 145 mmol/L 11/15/2023 11:33 PM CDT [facility] POTASSIUM 4.1 3.5 - 5.1 mmol/L 11/15/2023 11:33 PM CDT [facility] CHLORIDE 108(H) 98 - 107 mmol/L 11/15/2023 11:33 PM CDT [facility] CO2, VENOUS 22 22 - 30 mmol/L 11/15/2023 11:33 PM CDT [facility] ANION GAP 13.1 <18.0 mmol/L 11/15/2023 11:33 PM CDT [facility] GLUCOSE 235(H) 70 - 99 mg/dL 11/15/2023 11:33 PM CDT [facility] BUN 26(H) 10 - 20 mg/dL 11/15/2023 11:33 PM CDT [facility] CREATININE, BLOOD 1.26(H) 0.60 - 1.00 mg/dL 11/15/2023 11:33 PM CDT [facility] BUN/CREATININE RATIO 21(H) 12 - 20 ratio 11/15/2023 11:33 PM CDT [facility] TOTAL PROTEIN 6.8 6.3 - 8.2 g/dL 11/15/2023 11:33 PM CDT [facility] ALBUMIN 3.5 3.5 - 5.0 g/dL 11/15/2023 11:33 PM CDT [facility] A/G RATIO 1.1 1.0 - 2.2 11/15/2023 11:33 PM CDT [facility] CALCIUM 9.3 8.7 - 10.5 mg/dL 11/15/2023 11:33 PM CDT [facility] T BILI 1.4(H) 0.2 - 1.2 mg/dL 11/15/2023 11:33 PM CDT [facility] SGOT (AST) 31 5 - 34 U/L 11/15/2023 11:33 PM CDT [facility] SGPT (ALT) 22 0 - 55 U/L 11/15/2023 11:33 PM CDT [facility] ALKALINE PHOSPHATASE 103 40 - 150 U/L 11/15/2023 11:33 PM CDT [facility] GFR, ESTIMATED 49(L) >=60 11/15/2023 11:33 PM CDT [facility] Comment: Creatinine Clearance is the preferred criteria for selecting drug dose adjustments in renally impaired patients. The GFR is provided as additional pertinent clinical information. GFR is reported in mL/min/1.73 sq m. Calculation based on the Chronic Kidney Disease Epidemiology Collaboration (CKD- EPI) equation refit without adjustment for race. GFR, EST. 52(L) >=60 024 11:33 PM CDT [facility] GFR, EST. NONAFRICAN 43(L) >=60 11/15/2023 11:33 PM CDT [facility] Blood Venipuncture / Unknown 11/15/2023 11:01 PM CDT 11/15/2023 11:08 PM CDT us Moses Hawthorne MD CHEMISTRY ORDERABLES Final Result [facility] [address] [place] [address] * ARNOLD SCREENING BILATERAL DIGITAL W CAD W [place] (07/29/2023 12:00 AM CDT) Anatomical Region Laterality Modality breast Bilateral Mammography 07/29/2023 us Vaughn Bradshaw MD IMG MAMMO ORDERABLES Final Resul t * HM DILATED EYE EXAM (12/22/2022 12:00 AM CDT) 12/22/2022 us Provider Scan PROCEDURE/MINOR SURGICAL ORDERAB LES Final Result Performing Organization Address City/[facility]/ZIP Co de Phone Number SCAN * PATHOLOGY CYTOLOGY DEFENSIVE DRIVING INSTRUCTOR (12/21/2017) Specimen of unknown material (specimen) Claudia Horn TALENT ACQUISITION MANAGER PATHOLOGY/CYTOLOGY ORDERABLE S Final Result * HEPATITIS C ANTIBODY (12/10/2017 9:23 AM CDT) hepatitis C antibody 0.49 <1 S/CO 12/10/2017 11:14 PM CDT [facility] Comment: Signal/Cutoff ratio < 0.79 is Nondetected Signal/Cutoff ratio 0.80-0.99 is Grayzone Signal/Cutoff ratio > 0.99 is Detected Supplemental assays are recommended if signal/cutoff ratio is >/=1.00. Signal/cutoff ratio result >/= 5.00 is 97% predictive of positivity for recombinant immunoblot assay (RIBA) and will be reported to the [place] Department of Public Health as required. Blood specimen (specimen) Venipuncture / Unknown 12/10/2017 9:23 AM CDT 12/10/2017 10:46 AM CDT Carlos Luz MD CHEMISTRY ORDERABLES Fin al Result [facility] [address] [place] [address], [place] from Last 3 Months or Most Recently Relevant to Health Maintenance Insurance [place] MEDICARE C [employer] Advance Directives Documents on File Type Date Recorded Patient Pre Sales Technical Consultant Expl anation Power of Music Rehabilitation Therapist for Health Care 12/21/2023 1:15 PM POA-HC/12/21/23 * Full Code (Latest Code Status on File) Date Activated Date Inactivated Comments 11/16/2023 3:11 AM CPR-Full Treat ment: FULL ARREST: Attempt Resuscitation/CPR wit intubation and mechanical ventilation. PRE-ARREST: Use entire range of life support measures to stabilize the patient. * Full Code Date Activated Date Inactivated Comments 01/14/2022 3:49 PM 01/16/2022 5:38 PM CPR-Full T reatment: FULL ARREST: Attempt Resuscitation/CPR wit intubation and mechanical ventilation. PRE-ARREST: Use entire range of life support measures to stabilize the patient. Healthcare Agents on File Name Relationship Healthcare Agent Relationship Communication Avani Almaraz Daughter/Step-Daughter Healthcare POA Care Teams Engine Inspector Relationship Specialty Start Date End Date Kasey Williamson DO [facility] [place] [id number] PCP - General Family Medicine 09/14/23 Claudia Horn APRN [address] [place] [address] Advanced Practice Nurse 08/16/18 Vicenta Raymond DO [address] [place] [address] [place] [address] Consulting Physician Obstetrics & Gynecology 09/25/21 Gus Chowdary MD [address] [facility] [address] [place] [address] Consulting Physician Colon and Rectal Surgery 07/23/22
--- OUTSIDE RECORDS SUMMARY | 2024-06-27 09:00 | XMS_ITS | Encounter Summary ---
Author Organization [facility] Address [address] [place] [address] Phone Care Team Providers Care Senior Counsel Commercial Name Role Phone Vaughn Bradshaw MD Primary Care Provider [phone] Claudia Horn APRN Unavailable Vicenta Raymond DO Unavailable Gus Chowdary MD Unavailable Kasey Williamson DO Primary Care Provider [phone] Virginie Reyes RN Unavailable Unavailable Virginie Reyes RN Unavailable Unavailable Virginie Reyes RN Unavailable Unavailable Kelley Lopez PUMPING STATION ENGINEER, SCHEDULE ANNOUNCER Unavailable +- [phone] Reason for Visit * Reason Comments Medication Refill Encounter Details Date Type Department Care Team (Late st Contact Info) Description 12/26/2021 Refill [facility] #2 [place] [address] Vaughn Bradshaw MD #1 [place] [address] Medication Refill Social History Tobacco Use Types [...] suspected to have Coronavirus/COVID-19? No / Unsure 12/16/2021 5:41 PM CDT documented as of this encounter Miscellaneous Notes * Telephone Encounter - Maria T Alejandre RN - 12/26/2021 10:30 AM CDT I do not see another pen needle on her medication list. I do see she uses insulin pens. Medication failed the protocol, provider to review and approve the medication order if appropriate. Requested Prescriptions Pending Prescriptions Disp Refills B-D ULTRAFINE III SHORT PEN 31G X 8 MM Misc [Pharmacy Med Name: B-D PEN NDL SHRT 04SF2RF(08/04) PARVEZ]200 Pen Needle 3 Sig: USE DIRECTED FOUR TIMES DAILY Diabetic Supplies Protocol Failed - 12/26/2021 3:54 AM Failed - Active on medication list Passed - Visit with relevant provider in past 6 months Recent Visits Date Type Provider Dept 12/16/21 Office Visit Vaughn Bradshaw MD [facility] 11/04/21 Office Visit Vaughn Bradshaw MD [facility] 07/04/21 Office Visit Vaughn Bradshaw MD [facility] Showing recent visits within past 182 days and meeting all other requirements Future Appointments Date Type Provider Dept 01/13/22 Appointment Vaughn Bradshaw MD [facility] Showing [...] 01/14/2022 022 8:08 AM CDT COVID - 11/15/2023 11/15/2023 11/15/2023 11:4 7 PM CDT Assessment Noted Time PHQ-9 Depression Total Score: 0 11/05/19 9:00 AM CDT documented as of this encounter Care Teams Senior Counsel Commercial Relationship Specialty Start Date End Date Vaughn Bradshaw MD PCP - General Family Medicine 05/18/18 08/26/23 Kasey Williamson DO [address] [facility] [address] [place] [address] PCP - General Family Medicine 09/14/23 Claudia Horn APRN [address] [place] [address] Advanced Practice Nurse 08/16/18 Vicenta Raymond DO ONE PROFESSIONAL [facility] [address] [place] [address] Consulting Physician Obstetrics & Gynecology 09/25/21 Gus Chowdary MD #2 [facility] [address] [place] [address] Consulting Physician Colon and Rectal Surgery 07/23/22 Virginie Reyes RN [place] Nurse Batcher Operator 09/14/23 09/14/23 Virginie Reyes, RN [place] Nurse Batcher Operator 11/19/23 11/29/23 Virginie Reyes, RN [place] Nurse Batcher Operator 12/07/23 05/15/24 Kelley Lopez, PUMPING STATION ENGINEER, SCHEDULE ANNOUNCER #2 [facility], [address] [place] [address] Nurse Practitioner Advanced Practice Nurse 12/09/23 02/22/24 documented as of this encounter
--- OUTSIDE RECORDS SUMMARY | 2024-06-27 09:00 | XMS_ITS | Encounter Summary ---
Author Organization [facility] Address [address] [place] [address] Phone Care Team Providers Care Lodge Attendant Name Role Phone Vaughn Bradhsaw MD Primary Care Provider [phone] Claudia Horn APRN Unavailable Vicenta Raymond DO Unavailable [phone] Gus Chowdary MD Unavailable Kasey Williamson DO Primary Care Provider [phone] Virginie Reyes RN Unavailable Unavailable Virginie Reyes RN Unavailable Unavailable Virginie Reyes RN Unavailable Unavailable Kelley Lopez FACILITY MANAGER HISTOLOGY, LAW LIBRARIAN Unavailable +- [phone] Reason for Visit * Reason Comments Medication Refill Encounter Details Date Type Department Care Team (Late st Contact Info) Description 05/07/2022 Refill [facility] #2 [place] [address] Vaughn Bradshaw MD #1 [place] [address] Medication Refill Social History Tobacco Use Types [...] Telephone Encounter - Prerna Mann RN - 05/07/2022 8:45 AM BUILDING SUPERINTENDENT Per nursing clinical judgement, provider to review and approve the medication(s) order(s) if appropriate. Requested Prescriptions Pending Prescriptions Disp Refills albuterol 108 (90 Base) MCG/ACT Aerosol Solution [Pharmacy Med Name: ALBUTEROL HFA INH(200 PUFFS)18GM] 90 g Sig: INHALE 2 PUFFS BY MOUTH EVERY 4 HOURS NEEDED FOR WHEEZING OR COUGH Short Acting Inhaled Beta-Agonists Protocol Passed - 05/07/2022 3:55 AM Passed - Visit with relevant [...] 90 days and meeting all other requirements DING SUPERINTENDENT documented in this encounter Plan of Treatment Not on file documented as of this encounter Visit Diagnoses Not on filedocumented in this encounter Additional Health Concerns Infection Onset Date Last Indicated Resolved Time COVID - 19 11/15/2023 11/15/2023 11/15/2023 11:4 7 PM CDT Assessment Noted Time PHQ-9 Depression Total Score: 0 11/05/19 9:00 AM CDT documented as of this encounter Care Teams Lodge Attendant Relationship Specialty Start Date End Date Vaughn Bradshaw MD PCP - General Family Medicine 05/18/18 08/26/23 Kasey Williamson DO 2 [facility] [address] [place] [address] PCP - General Family Medicine 09/14/23 Claudia Horn FACILITY MANAGER HISTOLOGY [address] [place] [address] Advanced Practice Nurse 08/16/18 Vicenta Raymond DO ONE PROFESSIONAL [facility] [address] [place] [address] Consulting Physician Obstetrics & Gynecology 09/25/21 Gus Chowdary MD #2 [facility] [address] [place] [address] Consulting Physician Colon and Rectal Surgery 07/23/22 Virginie Reyes, RN [place] Nurse Jigmaker 09/14/23 09/14/23 Virginie Reyes, RN [place] Nurse Jigmaker 11/19/23 11/29/23 Virginie Reyes, RN [place] Nurse Jigmaker 12/07/23 05/15/24 Kelley Lopez, FACILITY MANAGER HISTOLOGY, LAW LIBRARIAN #2 [facility] [address] [place] [address] Nurse Practitioner Advanced Practice Nurse 12/09/23 02/22/24 documented as of this encounter
--- OUTSIDE RECORDS SUMMARY | 2024-06-27 09:00 | XMS_ITS | Encounter Summary ---
Author Organization [facility] Address [address] [place] [address] Phone Care Team Providers Care Textile Designs Sales Representative Name Role Phone Vaughn Bradshaw MD Primary Care Provider [phone] Claudia oHrn APRN Unavailable Vicenta Raymond DO Unavailable Gus Chowdary MD Unavailable Kasey Williamson DO Primary Care Provider [phone] Virginie Reyes RN Unavailable Unavailable Virginie Reyes RN Unavailable Unavailable Virginie Reyes RN Unavailable Unavailable Kelley Lopez CREDIT RISK MODELER, LANDSCAPE ENGINEER Unavailable [phone]- [phone] Reason for Visit * Reason Comments Medication Refill Encounter Details Date Type Department Care Team (Late st Contact Info) Description 03/09/2022 Refill [facility] #2 [place] [address] Vaughn Bradshaw MD #1 [place] [address] Medication Refill Social History Tobacco Use Types [...] Miscellaneous Notes * Telephone Encounter - Prerna aMnn RN - 03/09/2022 9:24 AM CAR FRAMER Medication failed the protocol, provider to review and approve the medication order if appropriate. Requested Prescriptions Pending Prescriptions Disp Refills ergocalciferol (VITAMIN D) 36914 UNIT Capsule [Pharmacy Med Name: VITAMIN D2 50,000IU (ERGO) CAP RX] 12 Capsule 0 Sig: TAKE 1 CAPSULE BY MOUTH EVERY 7 DAYS FOR 12 DOSES Vitamin Supplements (Adult) Protocol Failed - 03/09/2022 3:54 AM Failed - Active on medication list Failed - Vitamin D less than 1.25mg Passed - Visit with relevant provider in past 12 months or upcoming 90 days Recent Visits Date Type Provider Dept 02/03/22 Office Visit Vaughn Bradshaw MD [facility] 12/16/21 Office Visit Vaughn Bradshaw MD [facility] 11/04/21 Office Visit Vaughn Bradshaw MD [facility] 07/04/21 Office Visit Vaughn Bradshaw MD [facility] 04/21/21 Telemedicine Monae Jorgensen APRN, LANDSCAPE ENGINEER [facility] Showing recent visits within past 365 days and meeting all other requirements Future Appointments Date Type Provider Dept 06/04/22 Appointment Vaughn Bradshaw MD [facility] Showing future appointments within next 90 days and meeting all other requirements FRAMER documented in this encounter Plan of Treatment Not on file documented as of this encounter Visit Diagnoses Diagnosis Vitamin D deficiency Unspecified vitamin D deficiency documented in this encounter Additional Health Concerns Infection Onset Date Last Indicated Resolved Time COVID - 19 11/15/2023 11/15/2023 11/15/2023 11:4 7 PM CDT Assessment Noted Time PHQ-9 Depression Total Score: 0 11/05/19 9:00 AM CDT documented as of this encounter Care Teams Textile Designs Sales Representative Relationship Specialty Start Date End Date Vaughn Bradshaw MD PCP - General Family Medicine 05/18/18 08/26/23 Kasey Williamson DO 2 [facility]. [address] [place] [address] PCP - General Family Medicine 09/14/23 Claudia Horn APRN [address] [place] [address] Advanced Practice Nurse 08/16/18 Vicenta Raymond DO ONE PROFESSIONAL [facility] [address] [place] [address] Consulting Physician Obstetrics & Gynecology 09/25/21 Gus Chowdary MD #2 [facility] [address] [place] [address] Consulting Physician Colon and Rectal Surgery 07/23/22 Virginie Reyes, RN [place] Nurse Deli Bakery Clerk 09/14/23 09/14/23 Virginie Reyes, RN [place] Nurse Deli Bakery Clerk 11/19/23 11/29/23 Virginie Reyes, RN [place] Nurse Deli Bakery Clerk 12/07/23 05/15/24 Kelley Lopez APRN, LANDSCAPE ENGINEER #2 [facility] [address] [place] [address] Nurse Practitioner Advanced Practice Nurse 12/09/23 02/22/24 documented as of this encounter
--- OUTSIDE RECORDS SUMMARY | 2024-06-27 09:00 | XMS_ITS | Encounter Summary ---
Author Organization [facility] Address [address] [place] [address] Phone Care Team Providers Care Proof Machine Operator Name Role Phone Vaughn Bradshaw MD Primary Care Provider [phone] Claudia Horn APRN Unavailable Vicenta Raymond DO Unavailable [phone] Gus Chowdary MD Unavailable Kasey Williamson DO Primary Care Provider Virginie Reyes RN Unavailable Unavailable Virginie Reyes RN Unavailable Unavailable Virginie Reyes RN Unavailable Unavailable Kelley Lopez ADOPTION AGENT, EVENT COORDINATOR MARKETING AND SALES Unavailable [phone]- [phone] Reason for Visit * Reason Comments Medication Refill Encounter Details Date Type Department Care Team (Late st Contact Info) Description 01/29/2022 Refill [facility] #2 [place] [address] Vaughn Bradshaw MD #1 [place] [address] Medication Refill Social History Tobacco Use Types [...] suspected to have Coronavirus/COVID-19? No / Unsure 01/14/2022 12:52 PM CDT documented as of this encounter Miscellaneous Notes * Telephone Encounter - Prerna Mann RN - 01/29/2022 8:30 AM CRIME VICTIM SPECIALIST Medication failed the protocol, provider to review and approve the medication order if appropriate. Requested Prescriptions Pending Prescriptions Disp Refills busPIRone HCl 7.5 MG Tablet [Pharmacy Med Name: BUSPIRONE 7.5MG TABLETS] 180 Tablet 2 Sig: TAKE 1 TABLET(7.5 MG) BY MOUTH TWICE DAILY Buspirone (6 Month Refill Only) Protocol Failed - 01/29/2022 3:55 AM Failed - Has an encounter in the past 6 months with a depression or anxiety visit diagnosis Passed - Visit with relevant provider in past 6 months or upcoming 90 days Recent Visits Date Type Provider Dept 12/16/21 Office Visit Vaughn Bradshaw MD [facility] 11/04/21 Office Visit Vaughn Bradshaw MD [facility] Showing recent visits within past 182 days and meeting all other requirements Future Appointments Date Type Provider Dept 02/03/22 Appointment Vaughn Bradshaw MD [facility] Showing future appointments within next 90 days and meeting all other requirements Passed - Patient has established therapy with Buspirone for at least 6 months E VICTIM SPECIALIST documented in this encounter Plan of Treatment [...] documented as of this encounter Care Teams Proof Machine Operator Relationship Specialty Start Date End Date Vaughn Bradshaw MD PCP - General Family Medicine 05/18/18 08/26/23 Kasey Williamson DO 2 [facility]. [address] [place] [address] PCP - General Family Medicine 09/14/23 Claudia Horn APRN [address] [place] [address] Advanced Practice Nurse 08/16/18 Vicenta Raymond DO ONE PROFESSIONAL [facility] [address] [place] [address] Consulting Physician Obstetrics & Gynecology 09/25/21 Gus Chowdary MD #2 [facility] [address] [place] [address] Consulting Physician Colon and Rectal Surgery 07/23/22 Virginie Reyes, RN [place] Nurse Ruffling Machine Operator 09/14/23 09/14/23 Virginie Reyes, RN [place] Nurse Ruffling Machine Operator 11/19/23 11/29/23 Virginie Reyes, RN [place] Nurse Ruffling Machine Operator 12/07/23 05/15/24 Kelley Lopez APRN, EVENT COORDINATOR MARKETING AND SALES #2 [facility], [facility] [address] [place] [address] Nurse Practitioner Advanced Practice Nurse 12/09/23 02/22/24 documented as of this encounter
--- OUTSIDE RECORDS SUMMARY | 2024-06-27 09:00 | XMS_ITS | Encounter Summary ---
Author Organization [facility] Address [address] [place] [address] Phone Care Team Providers Care Boarding Mother Name Role Phone Vaughn Bradshaw MD Primary Care Provider [phone] Claudia Horn APRN Unavailable [phone] Vicenta Raymond DO Unavailable Gus Chowdary MD Unavailable Kasey Williamson DO Primary Care Provider [phone] Virginie Reyes RN Unavailable Unavailable Virginie Reyes RN Unavailable Unavailable Virginie Reyes RN Unavailable Unavailable Kelley Lopez BONE CHAR PULLER, CLIENT DEVELOPMENT DIRECTOR Unavailable [phone]- [phone] Reason for Visit * Reason Comments Medication Refill Encounter Details Date Type Department Care Team (Late st Contact Info) Description 09/21/2021 Refill [facility] #2 [place] [address] Vaughn Bradshaw MD #1 [place] [address] Medication Refill Social History Tobacco Use Types [...] suspected to have Coronavirus/COVID-19? No / Unsure 09/22/2021 2:58 PM CDT documented as of this encounter Plan of [...] documented as of this encounter Care Teams Boarding Mother Relationship Specialty Start Date End Date Vaughn Bradshaw MD PCP - General Family Medicine 05/18/18 08/26/23 Kasey Williamson DO 2 [facility] [facility] [address] [place] [address] PCP - General Family Medicine 09/14/23 Claudia Horn APRN [address] [place] [address] Advanced Practice Nurse 08/16/18 Vicenta Raymond DO ONE [address] [place] [address] [place] [address] Consulting Physician Obstetrics & Gynecology 09/25/21 Gus Chowdary MD #[address] [facility] [address] [place] [address] Consulting Physician Colon and Rectal Surgery 07/23/22 Virginie Reyes, RN [place] Nurse Plant Maintenance Technician 09/14/23 09/14/23 Virginie Reyes, RN [place] Nurse Plant Maintenance Technician 11/19/23 11/29/23 Virginie Reyes, RN [place] Nurse Plant Maintenance Technician 12/07/23 05/15/24 Kelley Lopez, BONE CHAR PULLER, CLIENT DEVELOPMENT DIRECTOR #[address] [facility] [address] [place] [address] Nurse Practitioner Advanced Practice Nurse 12/09/23 02/22/24 documented as of this encounter
--- OUTSIDE RECORDS SUMMARY | 2024-06-27 09:00 | XMS_ITS | Encounter Summary ---
Author Organization [facility] Address [address] [place] [address] Phone Care Team Providers Care Physicist Light And Optics Name Role Phone Vaughn Bradshaw MD Primary Care Provider Claudia Horn APRN Unavailable Vicenta Raymond DO Unavailable Gus Chowdary MD Unavailable Kasey Williamson DO Primary Care Provider [phone] iVrginie Reyes RN Unavailable Unavailable Virginie Reyes RN Unavailable Unavailable Virginie Reyes RN Unavailable Unavailable Kelley Lopez ASSISTANT GUEST SERVICES MANAGER, ICT ANALYST Unavailable [phone]- [phone] Reason for Visit * Reason Comments Medication Refill Encounter Details Date Type Department Care Team (Late st Contact Info) Description 10/19/2020 Refill [facility] #2 [place] [address] Vaughn Bradshaw MD #1 [place] [address] Medication Refill Social History Tobacco Use Types [...] have Coronavirus / COVID-19? No / Unsure 10/03/2020 9:41 AM CDT documented as of this encounter Miscellaneous Notes * Telephone Encounter - Maria T Alejandre RN - 10/21/2020 11:20 AM CDT PRN medication requires review from provider Per nursing clinical judgement, provider to review and approve the medication(s) order(s) if appropriate. Requested Prescriptions Pending Prescriptions Disp Refills Rizatriptan Benzoate 10 MG Tablet [Pharmacy Med Name: RIZATRIPTAN 10MG TABLETS] 9 Tablet Sig: TAKE 1 TABLET BY MOUTH A SINGLE DOSE. MAY REPEAT AT 2 HOUR INTERVALS. DO NOT EXCEED 3 IN 24HOURS [facility] Neu[facility]: Migraine Therapy Passed - 10/19/2020 3:27 PM Passed - Valid encounter within last 12 months Past Office Visits Recent Outpatient Visits 2 weeks ago Type 2 diabetes mellitus with hyperglycemia, with long-term current use of insulin ([facility] Vaugnh Gutierrez MD 1 year ago Type 2 diabetes mellitus with hyperglycemia, with long-term current use of insulin ([facility]) [facility] Vaughn Gutierrez MD 1 year ago Eczema, unspecified type [facility] Vaughn Gutierrez MD 1 year ago Uncontrolled type 2 diabetes mellitus with hyperglycemia ([facility]) [facility] Vaughn Gutierrez MD 2 years ago Diabetes mellitus due to underlying condition with hyperosmolarity without coma, without long-term current use of insulin ([facility]) [facility] - Family [facility] Vaughn Bradshaw MD Upcoming Appointments Future Appointments In [address] Mammography, [facility] In 2 months Vaughn Bradshaw MD [facility] Medical [facility] Family [facility], [facility] LIGHTOUT EXAMINER - Recent and Past Visits Recent Visits Date Type Provider Dept 10/03/20 Office Visit Vaughn Bradshaw MD [facility] Showing recent visits within past 460 days with a meds authorizing provider and meeting all other requirements Future Appointments Date Type Provider Dept 01/03/21 Appointment Vaughn Bradshaw MD [facility] Showing future appointments within next 90 days with a meds authorizing provider and meeting all other requirements documented in this encounter Plan of Treatment Not on file documented as of this encounter Visit Diagnoses Diagnosis Other migraine without status migrainosus, not intractable documented in this encounter Additional Health Concerns Infection Onset Date Last Indicated Resolved Time COVID - 19 03/31/2021 03/31/2021 03/31/2021 9:59 PM CATTLE DIPPER COVID - 19 Confirmed 03/31/2021 03/31/2021 022 12:16 AM CATTLE DIPPER COVID - 19 01/14/2022 01/14/2022 01/15/2022 7:59 AM CDT Respiratory Rule-Out 01/14/2022 01/14/2022 022 8:08 AM CDT COVID - 19 11/15/2023 11/15/2023 11/15/2023 11:4 7 PM CDT Assessment Noted Time PHQ-9 Depression Total Score: 0 10/04/19 9:00 AM CDT documented as of this encounter Care Teams Physicist Light And Optics Relationship Specialty Start Date End Date Vaughn Bradshaw MD PCP - General Family Medicine 05/18/18 08/26/23 Kasey Williamson DO [address] [facility] [place] [address] PCP - General Family Medicine 09/14/23 Claudia Horn, ASSISTANT GUEST SERVICES MANAGER [address] [place] [address] Advanced Practice Nurse 08/16/18 Vicenta Raymond, DO [facility]AL [facility] [address] [place] [address] Consulting Physician Obstetrics & Gynecology 09/25/21 Gus Chowdary MD #2 [facility] [address] [place] [address] Consulting Physician Colon and Rectal Surgery 07/23/22 Virginie Reyes, RN [place] Nurse Manufacturing Tech 09/14/23 09/14/23 Virginie Reyes, RN [place] Nurse Manufacturing Tech 11/19/23 11/29/23 Virginie Reyes, RN [place] Nurse Manufacturing Tech 12/07/23 05/15/24 Kelley Lopez, ASSISTANT GUEST SERVICES MANAGER, ICT ANALYST #[address] [facility], [address] [place] [address] Nurse Practitioner Advanced Practice Nurse 12/09/23 02/22/24 documented as of this encounter
--- OUTSIDE RECORDS SUMMARY | 2024-06-27 09:00 | XMS_ITS | Encounter Summary ---
Author Organization [facility] Address [address] [place] [address] Phone Care Team Providers Care Ski Patrol Name Role Phone Vaughn Bradshaw MD Primary Care Provider [phone] Claudia Horn APRN Unavailable [phone] Vicenta Raymond DO Unavailable [phone] Gus Chowdary MD Unavailable Kasey Williamson DO Primary Care Provider [phone] Virginie Reyes RN Unavailable Unavailable Virginie Reyes RN Unavailable Unavailable Virginie Reyes RN Unavailable Unavailable Kelley Lopez TELEPHONE SERVICE ADVISER, YARN EXAMINER SKEINS Unavailable [phone]- [phone] Reason for Visit * Reason Comments Medication Refill Encounter Details Date Type Department Care Team (Late st Contact Info) Description 10/20/2022 Refill [facility] #2 [place] [address] Vaughn Bradshaw MD #1 [place] [address] Medication Refill Social History Tobacco Use Types [...] Encounter - Maria T Alejandre RN - 10/20/2022 12:28 PM CDT Images from the original note were not included. Citalopram Hydrobromide Dispensed Days Supply Quantity Provider Pharmacy CITALOPRAM 20MG TABLETS 10/17/2022 45 90 Each Vaughn Bradshaw MD [facility] #... CITALOPRAM 20MG TABLETS 08/30/2022 45 90 Each Vaughn Bradshaw MD [facility] #... CITALOPRAM 20MG TABLETS 06/24/2022 90 90 Each [facility] [...] documented as of this encounter Care Teams Ski Patrol Relationship Specialty Start Date End Date Vaughn Bradshaw MD PCP - General Family Medicine 05/18/18 08/26/23 Kasey Williamson DO [address] [facility] [facility] [place] [address] PCP - General Family Medicine 09/14/23 Claudia Horn, FRANCES [address] [place] [address] Advanced Practice Nurse 08/16/18 Vicenta Raymond, ONE PROFESSIONAL [facility] [address] [place] [address] Consulting Physician Obstetrics & Gynecology 09/25/21 Gus Chowdary MD #[address] [facility] [address] [place] [address] Consulting Physician Colon and Rectal Surgery 07/23/22 Virginie Reyes, RN [place] Nurse Furnace Fitter 09/14/23 09/14/23 Virginie Reyes, RN [place] Nurse Furnace Fitter 11/19/23 11/29/23 Virginie Reyes, RN [place] Nurse Furnace Fitter 12/07/23 05/15/24 Kelley Lopez, TELEPHONE SERVICE ADVISER, YARN EXAMINER SKEINS #[address] [facility], [address] [place] [address] Nurse Practitioner Advanced Practice Nurse 12/09/23 02/22/24 documented as of this encounter
--- OUTSIDE RECORDS SUMMARY | 2024-06-27 09:00 | XMS_ITS | Encounter Summary ---
Author Organization [facility] Address [address] [place] [address] Phone Care Team Providers Care Slack Line Yarder Name Role Phone Vaughn Bradshaw MD Primary Care Provider [phone] Claudia Horn APRN Unavailable Vicenta Raymond DO Unavailable Gus Chowdary MD Unavailable Kasey Williamson DO Primary Care Provider [phone] Virginie Reyes RN Unavailable Unavailable Virginie Reyes RN Unavailable Unavailable Virginie Reyes RN Unavailable Unavailable Kelley Lopez FURNITURE REPAIRER, QUICK SERVICE TECHNICIAN Unavailable [phone]- [phone] Reason for Visit * Reason Comments Medication Refill Encounter Details Date Type Department Care Team (Late st Contact Info) Description 04/02/2022 Refill [facility] [address] [place] [address] Vaughn Bradshaw MD [address] [place] [address] Medication Refill Social History Tobacco Use Types [...] Telephone Encounter - Prerna Mann RN - 04/02/2022 9:38 AM RN VASCULAR Medication failed the protocol, provider to review and approve the medication order if appropriate. Requested Prescriptions Pending Prescriptions Disp Refills Ozempic, 1 MG/DOSE, 4 MG/3ML Solution Pen-injector [Pharmacy Med Name: OZEMPIC 1MG PER DOSE (1X4MG PEN)] 3 mL 0 Sig: INJECT 1 MG UNDER THE SKIN ONCE A WEEK GLP-1 Agonists Protocol Failed - 04/02/2022 8:46 AM Failed - Lipid panel result on file in [...] Range Status 01/20/2021 114.8 <130 mg/dL Final Passed - Visit with relevant provider in past 6 months or upcoming 90 days Recent Visits Date Type Provider Dept 02/03/22 Office Visit [facility] 12[facility]16[facility]21 Office Visit [facility]n [facility] MD [facility] [...] months HGB-A1C Date Value Ref Range Status 12/16/2021 8.7 (A) 4 - 6 Final Passed - GFR on record in past 6 months GFR, EST. NONAFRICAN Date Value Ref Range Status 01/15/2022 >60 >=60 Final VASCULAR documented in this encounter Plan of Treatment [...] documented as of this encounter Care Teams Slack Line Yarder Relationship Specialty Start Date End Date Vaughn Bradshaw MD PCP - General Family Medicine 05/18/18 08/26/23 Kasey Williamson DO [address] [place] [address] PCP - General Family Medicine 09/14/23 Claudia Horn APRN [address] [place] [address] Advanced Practice Nurse 08/16/18 Vicenta Raymond [place] [address] Consulting Physician Obstetrics & Gynecology 09/25/21 Gus Chowdary MD [address] [place] [address] Consulting Physician Colon and Rectal Surgery 07/23/22 Virginie Reyes, RN [place] Nurse Mechanical Engineering Manager 09/14/23 09/14/23 Virginie Reyes, RN [place] Nurse Mechanical Engineering Manager 11/19/23 11/29/23 Virginie Reyes, RN [place] Nurse Mechanical Engineering Manager 12/07/23 05/15/24 Kelley Lopez, FURNITURE REPAIRER, QUICK SERVICE TECHNICIAN [address] [place] [address] Nurse Practitioner Advanced Practice Nurse 12/09/23 02/22/24 documented as of this encounter
--- OUTSIDE RECORDS SUMMARY | 2024-06-27 09:00 | XMS_ITS | Encounter Summary ---
Author Organization [facility] Address [address] [place] [address] Phone Care Team Providers Care French Edge Operator Name Role Phone Vaughn Bradshaw MD Primary Care Provider [phone] Claudia Horn APRN Unavailable Vicenta Raymond DO Unavailable Gus Chowdary MD Unavailable Kasey Williamson DO Primary Care Provider [phone] Virginie Reyes RN Unavailable Unavailable Virginie Reyes RN Unavailable Unavailable Virginie Reyes RN Unavailable Unavailable Kelley Lopez SAFETY EQUIPMENT TESTER, LITHOGRAPHIC RETOUCHER APPRENTICE Unavailable [phone]- [phone] Reason for Visit * Reason Comments Medication Refill Encounter Details Date Type Department Care Team (Late st Contact Info) Description 02/01/2023 Refill [facility] [address] [place] [address] Vaughn Bradshaw MD [address] [place] [address] Medication Refill Social History Tobacco Use Types Packs/Day Years Used Date Smoking Tobacco: Never Smokeless Tobacco: Never Alcohol Use Standard Drinks/Week Comments No 0 (1 standard drink = 0.6 oz pur e alcohol) PHQ-2 Answer Date Recorded Total Score - Questions 1-9 0 11/20 Education Answer Date Recorded What is the [...] suspected to have Coronavirus/COVID-19? No / Unsure 01/28/2023 6:21 AM REEL AND REWINDER OPERATOR documented as of this encounter Miscellaneous Notes * Telephone Encounter - Maria T Alejandre RN - 02/01/2023 11:22 AM CST Medication failed the protocol, provider to review and approve the medication order if appropriate. Requested Prescriptions Pending Prescriptions Disp Refills simvastatin (ZOCOR) 40 MG Tablet [Pharmacy Med Name: SIMVASTATIN 40MG TABLETS] 90 Tablet 1 Sig: Take 1 Tablet by mouth daily. Hmg CoA Reductase Inhibitors Protocol Failed - 02/01/2023 3:54 AM Failed - CMP in past 12 months SODIUM Date Value Ref Range Status 12/07/2022 141 136 - 145 mmol/L Final POTASSIUM Date Value Ref Range Status 12/07/2022 3.6 3.5 - 5.1 mmol/L Final CHLORIDE Date Value Ref Range Status 12/07/2022 105 98 - 107 mmol/L Final CO2, VENOUS Date Value Ref Range Status 12/07/2022 26 22 - 30 mmol/L Final ANION GAP Date Value Ref Range Status 12/07/2022 13.6 <18.0 mmol/L Final GLUCOSE Date Value Ref Range Status 12/07/2022 91 70 - 99 mg/dL Final BUN Date Value Ref Range Status 12/07/2022 14 10 - 20 mg/dL Final CREATININE, BLOOD Date Value Ref Range Status 12/07/2022 0.96 0.60 - 1.00 mg/dL Final BUN/CREATININE RATIO Date Value Ref Range Status 12/07/2022 15 12 - 20 ratio Final TOTAL PROTEIN Date Value Ref Range Status 12/07/2022 6.9 6.3 - 8.2 g/dL Final ALBUMIN Date Value Ref Range Status 12/07/2022 3.3 (L) 3.5 - 5.0 g/dL Final A/G RATIO Date Value Ref Range Status 12/07/2022 0.9 (L) 1.0 - 2.2 Final CALCIUM Date Value Ref Range Status 12/07/2022 8.6 (L) 8.7 - 10.5 mg/dL Final SGOT (AST) Date Value Ref Range Status 12/07/2022 56 (H) 5 - 34 U/L Final SGPT (ALT) Date Value Ref Range Status 12/07/2022 40 0 - 55 U/L Final ALKALINE PHOSPHATASE Date Value Ref Range Status 12/07/2022 96 40 - 150 U/L Final GFR, EST. NONAFRICAN Date Value Ref Range Status 12/07/2022 59 (L) >=60 Final GFR, EST. Date Value Ref Range Status 12/07/2022 >60 >=60 Final GFR, ESTIMATED Date Value Ref Range Status 12/07/2022 >60 >=60 Final Comment: Creatinine Clearance is the preferred criteria for selecting drug dose adjustments in renally impaired patients. The GFR is provided as additional pertinent clinical information. GFR is reported in mL/min/1.73 sq m. Calculation based on the Chronic Kidney Disease Epidemiology Collaboration (CKD- EPI) equation refitwithout adjustment for race. IS THE PATIENT REQUIRED TO BE FASTING? Date Value Ref Range Status 12/07/2022 No Final Passed - Visit with relevant provider in past 12 months or upcoming 90 days Recent Visits Date Type Provider Dept 12/07/22 Office Visit Vaughn Bradshaw MD [facility] 09/17/22 Office Visit Vaughn Bradshaw MD [facility] 08/06/22 Office Visit Vaughn Bradshaw MD [facility] 07/06/22 Office Visit Vaughn Bradshaw MD [facility] 05/27/22 Office Visit Vivian Tucker, SAFETY EQUIPMENT TESTER, LITHOGRAPHIC RETOUCHER APPRENTICE [facility] 02/03/22 Office Visit BradshawVaughn MD [facility] Showing recent visits within past 365 days and meeting all other requirements Future Appointments Date Type Provider Dept 04/12/23 Appointment Vaughn Bradshaw MD [facility] Showing [...] Range Status 12/07/2022 94 <130 mg/dL Final AND REWINDER OPERATOR documented in this encounter Plan of Treatment Not on file documented as of this encounter Visit Diagnoses Not on filedocumented in this encounter Additional Health Concerns Infection Onset Date Last Indicated Resolved Time COVID - 19 11/15/2023 11/15/2023 11/15/2023 11:4 7 PM CDT Assessment Noted Time PHQ-9 Depression Total Score: 0 12/08/19 23 8:37 AM CDT documented as of this encounter Care Teams French Edge Operator Relationship Specialty Start Date End Date Vaughn Bradshaw MD PCP - General Family Medicine 05/18/18 08/26/23 Kasey Williamson DO [address] [place] [address] PCP - General Family Medicine 09/14/23 Claudia Horn APRN [address] [place] [address] Advanced Practice Nurse 08/16/18 Vicenta Raymond DO [address] [facility] [address] [place] [address] Consulting Physician Obstetrics & Gynecology 09/25/21 Gus Chowdary MD #[address] [facility] [address] [place] [address] Consulting Physician Colon and Rectal Surgery 07/23/22 Virginie Reyes, FAYE [place] Nurse Clinical Informatics Educator 09/14/23 09/14/23 Virginie Reyes, RN [place] Nurse Clinical Informatics Educator 11/19/23 11/29/23 Virginie Reyes, RN [place] Nurse Clinical Informatics Educator 12/07/23 05/15/24 Kelley Lopez, SAFETY EQUIPMENT TESTER, LITHOGRAPHIC RETOUCHER APPRENTICE [address] [facility] [address] [place] [address] Nurse Practitioner Advanced Practice Nurse 12/09/23 02/22/24 documented as of this encounter
--- OUTSIDE RECORDS SUMMARY | 2024-06-27 09:00 | XMS_ITS | Encounter Summary ---
Author Organization [facility] Address [address] [facility] [place] [address] Phone Care Team Providers Care Associate Theatre Professor Name Role Phone Vaughn Bradshaw MD Primary Care Provider [phone] Claudia Horn APRN Unavailable [phone] Vicenta Raymond DO Unavailable [phone] Gus Chowdary MD Unavailable Kasey Williamson DO Primary Care Provider Virginie Reyes RN Unavailable Unavailable Virginie Reyes RN Unavailable Unavailable Virginie Reyes RN Unavailable Unavailable Kelley Lopez TUBERCULOSIS SPECIALIST, NATIONAL ACCOUNT DIRECTOR Unavailable [phone]- [phone] Reason for Visit * Reason Onset Date Comments Hip Pain 05/26/2022 Back pain Back Pain 05/26/2022 Shoulder Pain 05/26/2022 Encounter Details Date Type Department Care Team (Late st Contact Info) Description 05/26/2022 Nurse Triage [facility] [address] [place] [address] Vaughn Bradshaw MD [address] [place] [address] Hip Pain (Back pain/); Back Pain; Shoulder Pain Social History Tobacco Use Types Packs/Day Years [...] suspected to have Coronavirus/COVID-19? No / Unsure 05/26/2022 6:33 PM SET MAKING MACHINE OPERATOR documented as of this encounter Miscellaneous Notes * Telephone Encounter - Vera Fenton RN - 05/26/2022 4:07 PM CST SITUATION: Reports pain in both shoulders, both hips, and lower back. BACKGROUND: Patient calling requesting an appointment. Reports she missed a step and fell on 05/23/22. ASSESSMENT: Symptom Description / Location: Reports both hips are sore, both shoulders are painful, a purplish blue in color bruise - a size of a grape fruit on right side of back, and lower back pain. Reports right hip pain radiates to right knee Denies numbness, tingling, Pain (0-10):5/10 and worsen at night Temp: denies fever Treatment / Response: Tylenol for pain not helping with pain. RECOMMENDATION: See care advice and disposition for Guideline First positive answer recorded, all responses to prior questions were negative. If symptoms increase, change or if new symptoms develop, call your HCP or call back. Recommendations were based on caller information and is not a diagnosis. Verified and reviewed all triage information with caller. Reason for Disposition Large swelling or bruise and size > palm of person's hand ??? Patient wants to be seen ??? Patient wants to be seen Protocols used: BACK INJURY-A-OH, HIP INJURY-A-OH, SHOULDER INJURY-A-OH Appointment Scheduled. Advised to call back with any worsen symptoms. Please advise. All Patient Appointments Provider Department Dept Phone 05/27/2022 9:45 AM [place] [facility] [phone] 06/09/2022 5:45 PM [place] [facility] [phone] MAKING MACHINE OPERATOR documented in this encounter Plan of Treatment Not on file documented as of this encounter Visit Diagnoses Not on filedocumented in this encounter Additional Health Concerns Infection Onset Date Last Indicated Resolved Time COVID - 19 11/15/2023 11/15/2023 11/15/2023 11:4 7 PM CDT Assessment Noted Time PHQ-9 Depression Total Score: 0 11/05/19 9:00 AM CDT documented as of this encounter Care Teams Associate Theatre Professor Relationship Specialty Start Date End Date Vaughn Bradshaw MD PCP - General Family Medicine 05/18/18 08/26/23 Kasey Williamson DO [address] [facility] [address] [place] [address] PCP - General Family Medicine 09/14/23 Claudia Horn APRN [address] [place] [address] Advanced Practice Nurse 08/16/18 Vicenta Raymond DO [address] [facility] [address] [place] [address] Consulting Physician Obstetrics & Gynecology 09/25/21 Gus Chowdary MD [address] [place] [address] Consulting Physician Colon and Rectal Surgery 07/23/22 Virginie Reyes, RN [place] Nurse Supervisor Electronics Testing 09/14/23 09/14/23 Virginie Reyes, RN [place] Nurse Supervisor Electronics Testing 11/19/23 11/29/23 Virginie Reyes, RN [place] Nurse Supervisor Electronics Testing 12/07/23 05/15/24 Kelley Lopez, TUBERCULOSIS SPECIALIST, NATIONAL ACCOUNT DIRECTOR [address] [place] [address] Nurse Practitioner Advanced Practice Nurse 12/09/23 02/22/24 documented as of this encounter
--- OUTSIDE RECORDS SUMMARY | 2024-06-27 09:00 | XMS_ITS | Encounter Summary ---
Author Organization [facility] Address [address] [place] [address] Phone Care Team Providers Care Solar Sales Energy Advisor Name Role Phone Vaughn Bradshaw MD Primary Care Provider [phone] Claudia Horn APRN Unavailable Vicenta Raymond DO Unavailable Gus Chowdary MD Unavailable Kasey Williamson DO Primary Care Provider [phone] Virginie Reyes RN Unavailable Unavailable Virginie Reyes RN Unavailable Unavailable Virginie Reyes RN Unavailable Unavailable Kelley Lopez DE ICER FINISHER, PROJECT MANAGEMENT ADVISOR Unavailable [phone] Reason for Visit * Reason Comments Medication Refill Encounter Details Date Type Department Care Team (Late st Contact Info) Description 03/19/2022 Refill [facility] [address] [place] [address] Vaughn Bradshaw MD [address] [place] [address] Medication Refill Social History Tobacco Use Types [...] Telephone Encounter - Prerna Mann RN - 03/19/2022 8:51 AM GRAB DRIVER Medication discontinued-dose adjustment. DRIVER documented in this encounter Plan of Treatment [...] as of this encounter Care Teams Solar Sales Energy Advisor Relationship Specialty Start Date End Date Vaughn Bradshaw MD PCP - General Family Medicine 05/18/18 08/26/23 Kasey Williamson DO [address] [facility] [address] [address] PCP - General Family Medicine 09/14/23 Claudia Horn APRN [address] [place] [place] [address] Advanced Practice Nurse 08/16/18 Vicenta Raymond DO [address] [place] [address] [place] [address] Consulting Physician Obstetrics & Gynecology 09/25/21 Gus Chowdary MD #[address] [facility] [address] [place] [address] Consulting Physician Colon and Rectal Surgery 07/23/22 Virginie Reyes, RN [place] Nurse Oil Drilling Engineer 09/14/23 09/14/23 Virginie Reyes, RN [place] Nurse Oil Drilling Engineer 11/19/23 11/29/23 Virginie Reyes, RN [place] Nurse Oil Drilling Engineer 12/07/23 05/15/24 Kelley Lopez, DE ICER FINISHER, PROJECT MANAGEMENT ADVISOR [address] [facility] [address] [place] [address] Nurse Practitioner Advanced Practice Nurse 12/09/23 02/22/24 documented as of this encounter
--- OUTSIDE RECORDS SUMMARY | 2024-06-27 09:00 | XMS_ITS | Clinical Summary ---
Author Organization [facility] Address [address] [place] [address] Care Team Providers Care Ground Wirer Name Role Phone Kasey Williamson DO Primary Care Provider [phone] Source Comments [facility],non-owned Affiliates and Associated Physician Practices is amultiple site organization consisting of ambulatory clinics and hospital sitesin [place], [place], [place] and [place]. This disclosure is being madepursuant to the Care Everywhere program and may not contain all information available regarding this patient. Last updated 17.[facility] Allergies Active Allergy Reactions Criticality Noted Date Comments Ulmus Fulva Rhinitis 11/21/2021 Runny eyes, coughing Nsaids Bleeding 03/30/2023 Trichophyton Rhinitis,Unknown High 11/21/2017 Coughing, watery eyes Medications * Be aware that medications may not be up to date on this document. Alwaysverify current medications with the patient. Medication Sig Dispensed Refills Start Date End Date Status simvastatin (ZOCOR) 40 MG tablet Take 1 (one) tablet by mouth once daily 2 Active montelukast (SINGULAIR) 10 MG tablet Take 1 (one) tablet by mouth every evening 2 Active citalopram (CELEXA) 20 MG tablet Take 1 (one) tablet by mouth once daily 2 Active rizatriptan (MAXALT) 10 MG tablet 1 (one) tablet as needed 2 Active cyanocobalamin (VITAMIN B-12) 1000 MCG tablet Take 1 (one) tablet by mouth once daily 2 Active dicyclomine (BENTYL) 20 MG tablet Take 1 (one) tablet by mouth 2 times daily 1 Active allopurinol (ZYLOPRIM) 300 MG tablet Take 1 (one) tablet by mouth once daily 2 Active albuterol HFA (PROVENTIL; VENTOLIN; PROAIR) 108 (90 Base) MCG/ACT inhaler INHALE 2 PUFFS BY MOUTH EVERY 4 HOURS NEEDED FOR WHEEZING OR COUGH 2 Active busPIRone (BUSPAR) 7.5 MG tablet Take 1 (one) tablet by mouth 2 times daily 2 Active cetirizine (ZYRTEC) 10 MG tablet Take 1 (one) tablet by mouth once daily 2 Active EPINEPHrine (EPIPEN) 0.3 MG/0.3ML auto-injector pen Inject 0.3 mL into muscle once daily as needed 1 Active fenofibrate micronized (LOFIBRA) 200 MG capsule Take 1 (one) capsule by mouth 2 times daily 2 Active blood glucose (ACCU-CHEK YASMINE PLUS) test strip TEST BLOOD SUGAR FOUR TO FIVES TIMES DAILY 1 Active levothyroxine (SYNTHROID) 50 MCG tablet Take 0.5 (one-half) tablet by mouth once daily 1 Active azelastine (Astelin) 0.1 % nasal spray Logan 2 (two) sprays into the nose 2 times daily 4 Active cyclobenzaprine (Flexeril) 10 MG tablet Take 1 (one) tablet by mouth 3 times daily as needed for Muscle Spasms 30 tablet 1 4 Active lactulose (Chronulac) 10 GM/15ML solution Take 30 mL by mouth once daily 2700 mL 3 4 Active FLUoxetine (PROzac) 20 MG capsule Take 2 (two) capsules by mouth once daily 4 Active fluticasone propionate (Flonase) 50 MCG/ACT nasal spray Logan 1 (one) spray to 2 (two) sprays into each nostril once daily as needed Active pantoprazole EC (Protonix) 40 MG tablet TAKE 1 TABLET BY MOUTH TWICE DAILY 180 tablet 5 Active rifAXIMin (Xifaxan) 550 MG tablet Take 1 (one) tablet by mouth 2 times daily 180 tablet 3 5 026 Active nadolol (Corgard) 20 MG tablet TAKE 3 TABLETS ONE TIME DAILY 270 tablet 3 5 Active acetaminophen (Tylenol) 500 MG tablet Take 1 (one) tablet by mouth every 8 hours as needed for Fever or Pain Maximum allowable Acetaminophen amount = 4 Grams (4000 mg) / 24 hours. 30 tablet 5 Active SOFTCLIX LANCETS MISC 5 Active famotidine (Pepcid) 20 MG tablet Take 1 (one) tablet by mouth 2 times daily for 30 days 60 tablet 5 Active insulin glargine (Lantus SoloStar) pen Inject 25 (twenty five) Units subcutaneously every 24 hours 45 mL 5 Active Semaglutide(0.2 5 or 0.5MG/DOS) 2 MG/3ML Solution Pen-injector (Ozempic (0.25 or 0.5 MG/DOSE))Indica tions:Type 2 diabetes mellitus with diabetic chronic kidney disease, unspecified CKD stage, unspecified whether [place] [facility] insulin use (HCC) Inject 0.25 mg subcutaneously every 7 days for 28 days 3 mL 5 025 Active ubrogepant (Ubrelvy) 50 MG tablet Take 1 (one) tablet by mouth daily as needed - may repeat one time for Migraine Maximum daily dose: 200mg/24 hours Active metFORMIN (GLUCOPHAGE) 1000 MG tablet Take 1 (one) tablet by mouth 2 times daily with lunch and supper 2 025 Discontinued(Tx Complete) furosemide (Lasix) 20 MG tablet TAKE 1 TABLET BY MOUTH DAILY 30 tablet 5 025 Discontinued spironolactone (Aldactone) 100 MG tablet Take 1 (one) tablet by mouth once daily for 30 days 30 tablet 5 025 Discontinued(Cl inical Decision) furosemide (Lasix) 20 MG tablet Take 2 (two) tablets by mouth once daily 30 tablet 2 5 025 Discontinued(Cl inical Decision) Semaglutide(0.2 5 or 0.5MG/DOS) 2 MG/3ML Solution Pen-injector (Ozempic (0.25 or 0.5 MG/DOSE))Indica tions:Type 2 diabetes mellitus with diabetic chronic kidney disease, unspecified CKD stage, unspecified whether [place] [facility] insulin use (HCC) Inject 0.25 mg subcutaneously every 7 days for 28 days 3 mL 5 025 Discontinued Active Problems Problem Noted Date Diagnosed Date TATYANA (acute kidney injury) 06/20/2024 Generalized abdominal pain 06/06/2024 Hyperglycemia 06/06/2024 Urinary tract infection without hematuria, site unspecified 06/06/2024 Cirrhosis of liver without a scites, unspecified hepatic cirrhosis type 06/06/2024 Abdominal pain, generalized 05/03/2024 Cirrhosis, non-alcoholic 05/03/2024 SOB (shortness of breath) 03/08/2024 Chest pain, unspecified type 03/08/2024 Metabolic dysfunction-associated steatohepatitis (MASH) 03/08/2024 Acute kidney injury 03/05/2024 Hepatic encephalopathy 03/05/2024 Iron deficiency anemia 03/05/2024 Thrombocytopenia 03/05/2024 Hyperlipidemia 03/05/2024 Hyperkalemia 03/01/2024 Hypertension, unspecified type 03/01/2024 Other cirrhosis of liver 03/01/2024 Esophageal varices 03/30/2023 Overview (03/31/2023): 11/21/21 EGD: grade 1 EV, moderate PHG 03/30/23 EGD: grade 1 EV, mild PHG, no change in antral nodules, biopsies negative for H pylori mcm Depression 03/30/2023 Hypothyroidism 03/30/2023 Essential (primary) hypertension 03/30/2023 High cholesterol 03/30/2023 Type 2 diabetes mellitus without complications 0 03/30/2023 Overview (06/21/2024): IMO 06/21/2024 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 09/03/2022 Morbid obesity 01/14/2022 03/30/2023 Arthritis 05/18/2018 03/30/2023 Migraines 05/18/2018 03/30/2023 Iron deficiency anemia due to chronic blood loss 12/10/2017 03/30/2023 Encounters Date Type Department Care Team Description 06/23/2024 Telephone Transitional Care at [facility] [address] [place] [address] Danuta Lyons RN Transitional Care 06/20/2024 8:15 AM CDT - 06/22/2024 4:02 PM T Hospital Encounter [facility] 7S ACUTE [address] [place] [address] Jeff Wayne MD Befeler, Alex S, MD Hospitalist Discharge Disposition: Home or Self Care 06/19/2024 9:55 AM CDT - 06/19/2024 11:59 PM [facility] Hospital Encounter [facility] OP DRAW STATION [address] [place] [address] Discharge Disposition: Home or Self Care 06/19/2024 Telephone [facility] [place] [address] Allison Leavitt APRN-FIGUEROA Results 06/19/2024 Travel 06/16/2024 Orders Only [facility] [address] [place] [phone] Allison Leavitt, STAVE INSPECTOR-GAUGE OPERATOR 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 06/15/2024 Travel 06/14/2024 Orders Only [facility] [address] [place] [address] Allison Leavitt, STAVE INSPECTOR-GAUGE OPERATOR Type 2 diabetes mellitus with other specified complication, unspecified 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 school 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 insulin use 06/14/2024 Orders Only [facility] [address] [place] [address] Allison Leavitt, STAVE INSPECTOR-GAUGE OPERATOR 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 ; Type 2 diabetes mellitus with other specified complication, unspecified 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 school teacher 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 use 06/12/2024 Refill [facility] [address] [place] [phone] Allison Leavitt STAVE INSPECTOR-GAUGE OPERATOR Refill Request 06/12/2024 Transitional Care [facility] CARE COORDINATION [address] [place] [phone] Kati Garcia, RN Transitions Of Care 06/06/2024 9:43 AM CDT - 06/11/2024 3:17 PM CDT Hospital Encounter [facility] ACUTE [address] [place] [address] Jeff Wayne MD Elbeshbeshy, Hany Ahmed, MD Emergency Medicine Discharge Disposition: Home or Self Care 06/06/2024 Travel 06/02/2024 Transitional Care [facility] [address] [place] [phone] Kati Garcia RN Transitions Of Care 05/29/2024 Refill [facility] - [address] [phone] Allison Leavitt, STAVE INSPECTOR-GAUGE OPERATOR Refill Request 05/26/2024 9:00 AM [facility] Office Visit [facility] - [address] [phone] Allison Leavitt, STAVE INSPECTOR-GAUGE OPERATOR 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 (Primary Dx) 05/26/2024 7:58 AM SHEET [facility]AL SMITH - 05/26/2024 11:59 PM [facility] Hospital Encounter [facility] [address] [place] [address] Allison Leavitt, STAVE INSPECTOR-GAUGE OPERATOR Discharge Disposition: Home or Self Care 05/26/2024 Travel 05/18/2024 11:59 PM [facility] - 05/19/2024 10:05 AM [facility] Emergency [facility] EMERGENCY DEPARTMENT [address] [place] [phone] Cat Pretty MD Demars, Sivakumar Alvarez MD Acute cystitis without hematuria (Primary Dx); Lower abdominal pain; Thrombocytopenia Discharge Disposition: Home or Self Care 05/18/2024 Travel 05/18/2024 Telephone [facility] - [address] [phone] Allison Leavitt MD Question 05/08/2024 8:00 AM SHEET [employer]AL SM[facility] - 05/08/2024 11:59 PM [facility] Hospital Encounter [facility] OP DRAW STATION [address] [place] [address] Discharge Disposition: Home or Self Care 05/08/2024 Travel 05/05/2024 Transitional Care [facility]ORD[facility] [address] [place] [address] Kati Garcia, FAYE Transitions Of Care 05/03/2024 10:05 AM SHEET [employer]AL [facility] - 05/04/2024 7:18 PM [facility] Hospital Encounter [facility] Early Admission Unit [address] [place] [phone] Piero Coronel MD Garcia, Andrew M, MD Agbim, Uchenna A, MD Emergency Medicine Discharge Disposition: Home or Self Care 05/03/2024 Travel 05/03/2024 Refill [facility] - [address] [phone] Allison Leavitt, STAVE INSPECTOR-GAUGE OPERATOR Refill Request 05/03/2024 Refill [facility] - [address] [phone] Allison Leavitt, STAVE INSPECTOR-GAUGE OPERATOR Refill Request 05/01/2024 Refill [facility] - [address] [phone] Allison Leavitt, STAVE INSPECTOR-GAUGE OPERATOR MEDICATION REFILL 04/27/2024 Refill [facility] - [address] [phone] Allison Leavitt, STAVE INSPECTOR-GAUGE OPERATOR Refill Request 04/26/2024 8:00 AM SHEET [employer]AL SM[facility] - 04/26/2024 11:59 PM [facility] Hospital Encounter [facility] OP DRAW ST[facility] [address] [place] [address] Discharge Disposition: Home or Self Care 04/26/2024 Travel 04/25/2024 Refill [facility] Orthopedics [address] [place] [address], [place] [address] Maria Teresa Noonan MD Refill Request 04/25/2024 Refill [facility] [address] [place] [phone] Allison Leavitt APRN-CNP Refill Request 04/19/2024 Orders Only [facility] [address] [place] [phone] Allison Leavitt APRN-CNP 04/19/2024 Orders Only [facility] [address] [place] [phone] Allison Leavitt APRN-CNP 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 03/30/2024 11:35 AM SHEET [employer]AL SMITH - 03/30/2024 11:59 PM [facility] Hospital Encounter [facility] OP DRAW STATION [address] [place] [phone] Discharge Disposition: Home or Self Care 03/30/2024 11:00 AM SHEET [facility]AL [facility] Office Visit [facility] - [address] [phone] Allison Leavitt APRN-CNP 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 (Primary Dx); Generalized abdominal pain 03/30/2024 Orders Only [facility] [address] [place] [phone] Allison Leavitt APRN-CNP 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 03/30/2024 Travel 03/30/2024 Telephone [facility] - [address] [phone] Allison Leavitt APRN-CNP Question from Last 3 Months Immunizations Name Administration Dates Next Due INFLUENZA VACCINE, TRIV. (FL UZONE; FLULAVAL; FLUARIX; AFLURIA TRIVALENT; 6MO+), 0.5 ML (IIV3) 03/04/2024 Family History Relation Name Status Comments Father Mother Social History Tobacco Use Types Packs/Day Years Used Date Smoking Tobacco: Never Passive Smoke Exposure: Never Smokeless Tobacco: Never Tobacco Cessation:Counseling Given: No Alcohol Use Standard Drinks/Week Comments Never 0 (1 standard drink = 0.6 oz pur e alcohol) AUDIT-C Answer Date Recorded Q1: How often do you have a drink containing alcohol? Never 06/21/2024 Q2: How many drinks containi ng alcohol do you have on a typical day when you are drinking? Patient does not drink Q3: How often do you have si x or more drinks on one occasion? Never 06/21/2024 Overall Financial Resource Strain (CARDIA) Answe r Date Recorded How hard is it for you to pa y for the very basics like food, housing, medical care, and heating? Not hard at all 06/21/2024 PHQ-2 Answer Date Recorded Patient Health Questionnaire-2 Score 2 01/11/2023 [facility] - Occupational Stress Questionnaire Answer Date Recorded Do you feel stress - tense, restless, nervous, or anxious, or unable to sleep at night because your mind is troubled all the time - these days? Not at all 06/21/2024 Hunger Vital Sign Answer Date Recorded Within the past 12 months, y ou worried that your food would run out before you got the money to buy more. Never true 06/22/19 25 Within the past 12 months, t he food you bought just didn't last and you didn't have money to get more. Never true 06/21/2024 PRAPARE - Transportation Answer Date Re corded In the past 12 months, has l ack of transportation kept you from medical appointments or from getting medications? Yes 04/2024 In the past 12 months, has l ack of transportation kept you from meetings, work, or from getting things needed for daily living? No 06/21/2024 Housing Stability Vital Sign Answer Jose e Recorded In the last 12 months, was t here a time when you were not able to pay the mortgage or rent on time? No 06/21/2024 In the past 12 months, how m any times have you moved where you were living? 0 06/21/2024 At any time in the past 12 m [facility], were you homeless or living in a care home (including now)? No 06/21/2024 Sex and Gender Information Value Date Recorded Sex Assigned at Not on file Gender Identity Not on file Sexual Orientation Not on file Last Filed Vital Signs Vital Sign Reading Time Taken Comments Blood Pressure 152/86 06/22/2024 2:41 PM CDT Pulse 67 06/22/2024 2:41 PM CDT Temperature 36.6 C (97.9 F) 06/22/2024 2:41 PM CDT Respiratory Rate 18 06/22/2024 2:41 PM CDT Oxygen Saturation 98% 06/22/2024 2:41 PM CDT Inhaled Oxygen Concentration - - Weight 89.4 kg (197 lb) 06/21/2024 4:00 AM CDT Height 154.9 cm (5' 1 ) 06/20/2024 11:41 PM CDT Body Mass Index 37.22 06/20/2024 11:41 PM CDT Plan of Treatment Upcoming Encounters Date Type Department Care Team (Late st Contact Info) Description 06/29/2024 9:30 AM CDT Office Visit Transitional Care at [address] [phone] 08/28/2024 9:30 AM CDT Office Visit [facility] [address] [place] [address], [place] [phone] Allison Leavitt, STAVE INSPECTOR-GAUGE OPERATOR [address] [place] [address] [address] [place] [address] 09/25/2024 8:40 AM CDT Office Visit [facility] - Endocrinology [address] [place] [address], [place] [phone] Phoebe Joseph MD [address] [place] [address] [address] [place] [phone] Health Maintenance Due Date Last Done Comments COLOGUARD (AGES 45-75) - COLON CA SCREENING 1963 COLON MONITORING 1963 COLONOSCOPY - COLON CA SCREENING 1963 CT COLONOGRAPHY - COLON CA SCREENING 1965 Colorectal Cancer Screening 1963 FIT - COLON CA SCREENING 1963 FLEX SIG - COLON CA SCREENING 1963 DTAP/TDAP/TD VACCINES (1 - Tdap) 10/01/1982 PNEUMOCOCCAL VACCINE 50+ (1 of 2 - PCV) 10/01/1982 ZOSTER VACCINE (1 of 2) 10/01/2013 PAP SMEAR 12/21/2020 12/21/2017 DIABETES RETINOPATHY SCREENING 03/30/2023 DIABETES-FOOT EXAM WITH MONOFILAMENT 03/30/2023 HEPATITIS B VACCINE (1 of 3 - Risk 3-dose series) 2023 Respiratory Syncytial Virus (RSV) Vaccine Pt: or over 60 yrs (1 - Risk 60-74 years 1-dose series) 2023 COVID-19 VACCINE ( season) 2023 05/17/2021, 11/16/2020, 10/19/2020 DEPRESSION SCREENING 03/22/2024 01/12/2023 DIABETES - URINE PROTEIN SCREENING 03/22/2024 MEDICARE AWV CALENDAR YEAR 2024 DIABETES-HGB A1C 12/08/2024 06/07/2024, 02/2024, 11/15/2023, Additional history exists DIABETES-SERUM CREATININE 06/22/20252024, 06/22/2024, 06/21/2024, Additional history exists MAMMOGRAM 07/28/2025 07/29/2023, 05/0 11/2023, 07/29/2023, Additional history exists HIV SCREENING Completed 12/22/2017 HEPATITIS C SCREENING Completed 01/24/2018 , 01/24/2018, 01/24/2018, Additional history exists INFLUENZA VACCINE Completed 03/04/2024, , 02/03/2022, Additional history exists HIB VACCINE Aged Out No longer eligi ble based on patient's age to complete this topic HPV VACCINE Aged Out No longer eligi ble based on patient's age to complete this topic MENINGOCOCCAL (Group B) VACCINE SHARED DECISION-MAKING Aged Out No longer eligible based on patient's age to complete this topic MENINGOCOCCAL GROUPS A/C/Y/W VACCINE Aged Out No longer eligible based on patient's age to complete this topic Goals Goal Patient Goal Type Associated Problems Recent Progress Patient-Stated? Author Medication Management General On track( 8:51 AM SHE[facility] [facility]) No Fidelia Lainez, RN Note: Expected end date: 1 year Interventions: Take all medications as prescribed Safety General On track( 8:51 AM SHE[employer] [facility]) No Melany Kuhn, FAYE Note: Expected end date: ongoing Interventions: Your nurse will assess your risk for falls/injury each visit Make and keep follow-up appointments General On track( 1:44 PM [employer] [facility]) No Melany Kuhn, credit relationship manager Procedure Name Priority Date/Time Associated Diagnosis Comments RENAL FUNCTION PANEL Routine 06/22/2024 12:35 PM CDT GLUCOSE - POINT OF CARE Routine 06/23/19 12:09 PM CDT GLUCOSE - POINT OF CARE Routine 06/23/19 7:43 AM CDT PT-INR [facility] AM Draw 06/22/2024 4:02 AM CDT PHOSPHORUS BLOOD AM Draw 06/22/2024 4:02 AM CDT MAGNESIUM BLOOD AM Draw 06/22/2024 4:02 AM CDT COMPREHENSIVE METABOLIC PANEL AM Draw 06/22/2024 4:02 AM CDT CBC W/O DIFFERENTIAL AM Draw 06/22/2024 4:02 AM CDT GLUCOSE - POINT OF CARE Routine 06/22/19 8:09 PM CDT GLUCOSE - POINT OF CARE Routine 06/22/19 5:00 PM CDT GLUCOSE - POINT OF CARE Routine 06/22/19 12:05 PM CDT GLUCOSE - POINT OF CARE Routine 06/22/19 6:12 AM CDT CBC W/O DIFFERENTIAL AM Draw 06/21/2024 6:09 AM CDT PT-INR [facility] AM Draw 06/21/2024 4:58 AM CDT PHOSPHORUS BLOOD AM Draw 06/21/2024 4:58 AM CDT MAGNESIUM BLOOD AM Draw 06/21/2024 4:58 AM CDT COMPREHENSIVE METABOLIC PANEL AM Draw 06/21/2024 4:58 AM CDT GLUCOSE - POINT OF CARE Routine 06/21/19 7:29 PM CDT RENAL FUNCTION PANEL STAT 06/20/2024 11:46 AM CDT UREA NITROGEN URINE RANDOM STAT 06/20/2024 11:45 AM CDT URINALYSIS REFLEX MICROSCOPIC REFLEX CULTURE STAT 06/20/2024 11:34 AM CDT CREATININE URINE RANDOM STAT 06/21/19 11:34 AM CDT SODIUM URINE RANDOM STAT 06/20/2024 1 1:34 AM CDT CULTURE URINE STAT 06/20/2024 11:34 AM CDT AMMONIA STAT 06/20/2024 9:34 AM CDT DIFFERENTIAL MANUAL STAT 06/19/2024 7 :04 PM CDT PT-[facility]R [facility] STAT 06/19/2024 7:04 PM CDT COMPREHENSIVE METABOLIC PANEL STAT 06/19/2024 7:04 PM CDT CBC W AUTO DIFFERENTIAL STAT 06/20/19 7:04 PM CDT DIFFERENTIAL MANUAL Routine 06/19/2024 1 0:32 AM CDT 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 PT-INR [facility] Routine 06/19/2024 10:32 AM CDT 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 COMPREHENSIVE METABOLIC PANEL Routine 06/19/2024 10:32 AM CDT 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 CBC W AUTO DIFFERENTIAL Routine 06/20/19 10:32 AM CDT 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 GLUCOSE - POINT OF CARE Routine 06/12/19 12:14 PM CDT GLUCOSE - POINT OF CARE Routine 06/12/19 8:31 AM CDT CBC W AUTO DIFFERENTIAL AM Draw 06/12/19 6:46 AM CDT Cirrhosis of liver without ascites, unspecified hepatic cirrhosis type PT-INR [facility] AM Draw 06/11/2024 6:46 AM CDT Cirrhosis of liver without ascites, unspecified hepatic cirrhosis type PHOSPHORUS BLOOD AM Draw 06/11/2024 6:46 AM CDT Cirrhosis of liver without ascites, unspecified hepatic cirrhosis type MAGNESIUM BLOOD AM Draw 06/11/2024 6:46 AM CDT Cirrhosis of liver without ascites, unspecified hepatic cirrhosis type COMPREHENSIVE METABOLIC PANEL AM Draw 06/11/2024 6:46 AM CDT Cirrhosis of liver without ascites, unspecified hepatic cirrhosis type GLUCOSE - POINT OF CARE Routine 06/11/19 8:25 PM CDT GLUCOSE - POINT OF CARE Routine 06/11/19 4:29 PM CDT GLUCOSE - POINT OF CARE Routine 06/11/19 12:41 PM CDT GLUCOSE - POINT OF CARE Routine 06/11/19 8:30 AM CDT DIFFERENTIAL MANUAL AM Draw 06/10/2024 6 :48 AM CDT Cirrhosis of liver without ascites, unspecified hepatic cirrhosis type CBC W AUTO DIFFERENTIAL AM Draw 06/11/19 6:48 AM CDT Cirrhosis of liver without ascites, unspecified hepatic cirrhosis type PT-INR [facility] AM Draw 06/10/2024 6:48 AM CDT Cirrhosis of liver without ascites, unspecified hepatic cirrhosis type PHOSPHORUS BLOOD AM Draw 06/10/2024 6:48 AM CDT Cirrhosis of liver without ascites, unspecified hepatic cirrhosis type MAGNESIUM BLOOD AM Draw 06/10/2024 6:48 AM CDT Cirrhosis of liver without ascites, unspecified hepatic cirrhosis type COMPREHENSIVE METABOLIC PANEL AM Draw 06/10/2024 6:48 AM CDT Cirrhosis of liver without ascites, unspecified hepatic cirrhosis type GLUCOSE - POINT OF CARE Routine 06/10/19 9:29 PM CDT GLUCOSE - POINT OF CARE Routine 06/10/19 5:58 PM CDT GLUCOSE - POINT OF CARE Routine 06/10/19 1:05 PM CDT GLUCOSE - POINT OF CARE Routine 06/10/19 8:36 AM CDT RENAL FUNCTION PANEL STAT 06/09/2024 7:20 AM CDT CBC W AUTO DIFFERENTIAL AM Draw 06/10/19 5:53 AM CDT Cirrhosis of liver without ascites, unspecified hepatic cirrhosis type PT-INR [facility] AM Draw 06/09/2024 5:53 AM CDT Cirrhosis of liver without ascites, unspecified hepatic cirrhosis type PHOSPHORUS BLOOD AM Draw 06/09/2024 5:53 AM CDT Cirrhosis of liver without ascites, unspecified hepatic cirrhosis type MAGNESIUM BLOOD AM Draw 06/09/2024 5:53 AM CDT Cirrhosis of liver without ascites, unspecified hepatic cirrhosis type COMPREHENSIVE METABOLIC PANEL AM Draw 06/09/2024 5:53 AM CDT Cirrhosis of liver without ascites, unspecified hepatic cirrhosis type GLUCOSE - POINT OF CARE Routine 06/09/19 7:49 PM CDT PROTEIN URINE TIMED QUANTITATIVE Routine 06/08/2024 4:00 PM CDT GLUCOSE - POINT OF CARE Routine 06/09/19 3:46 PM CDT GLUCOSE - POINT OF CARE Routine 06/09/19 11:12 AM CDT URINALYSIS REFLEX MICROSCOPIC REFLEX CULTURE Routine 06/08/2024 9:51 AM CDT CULTURE URINE Routine 06/08/2024 9:51 AM CDT GLUCOSE - POINT OF CARE Routine 06/09/19 7:38 AM CDT CBC W AUTO DIFFERENTIAL AM Draw 06/09/19 4:53 AM CDT Cirrhosis of liver without ascites, unspecified hepatic cirrhosis type PT-INR [facility] AM Draw 06/08/2024 4:53 AM CDT Cirrhosis of liver without ascites, unspecified hepatic cirrhosis type PHOSPHORUS BLOOD AM Draw 06/08/2024 4:53 AM CDT Cirrhosis of liver without ascites, unspecified hepatic cirrhosis type MAGNESIUM BLOOD AM Draw 06/08/2024 4:53 AM CDT Cirrhosis of liver without ascites, unspecified hepatic cirrhosis type COMPREHENSIVE METABOLIC PANEL AM Draw 06/08/2024 4:53 AM CDT Cirrhosis of liver without ascites, unspecified hepatic cirrhosis type GLUCOSE - POINT OF CARE Routine 06/08/19 8:10 PM CDT BLOOD GASES PRIYANK + COOX PANEL STAT 06/07/2024 6:21 PM CDT HYDROXYBUTYRATE BETA STAT 06/07/2024 6:21 PM CDT COMPREHENSIVE METABOLIC PANEL STAT 06/07/2024 6:21 PM CDT GLUCOSE - POINT OF CARE Routine 06/08/19 5:02 PM CDT GLUCOSE - POINT OF CARE Routine 06/08/19 11:45 AM CDT GLUCOSE - POINT OF CARE Routine 06/08/19 7:51 AM CDT HEMOGLOBIN A1C Routine 06/07/2024 5:15 AM CDT Cirrhosis of liver without ascites, unspecified hepatic cirrhosis type CBC W AUTO DIFFERENTIAL AM Draw 06/08/19 5:15 AM CDT Cirrhosis of liver without ascites, unspecified hepatic cirrhosis type PT-INR [facility] AM Draw 06/07/2024 5:15 AM CDT Cirrhosis of liver without ascites, unspecified hepatic cirrhosis type PHOSPHORUS BLOOD AM Draw 06/07/2024 5:15 AM CDT Cirrhosis of liver without ascites, unspecified hepatic cirrhosis type MAGNESIUM BLOOD AM Draw 06/07/2024 5:15 AM CDT Cirrhosis of liver without ascites, unspecified hepatic cirrhosis type COMPREHENSIVE METABOLIC PANEL AM Draw 06/07/2024 5:15 AM CDT Cirrhosis of liver without ascites, unspecified hepatic cirrhosis type GLUCOSE - POINT OF CARE Routine 06/07/19 11:23 PM CDT GLUCOSE - POINT OF CARE Routine 06/07/19 8:22 PM CDT GLUCOSE - POINT OF CARE Routine 06/07/19 6:16 PM CDT UREA NITROGEN URINE RANDOM STAT 06/06/2024 3:29 PM CDT Urinary tract infection without hematuria, site unspecified CREATININE URINE RANDOM STAT 06/07/19 3:29 PM CDT Urinary tract infection without hematuria, site unspecified SODIUM URINE RANDOM STAT 06/06/2024 3 :29 PM CDT Urinary tract infection without hematuria, site unspecified CULTURE BLOOD Timed 06/06/2024 1:39 PM CDT Cirrhosis of liver without ascites, unspecified hepatic cirrhosis type CULTURE BLOOD Timed 06/06/2024 1:35 PM CDT Cirrhosis of liver without ascites, unspecified hepatic cirrhosis type HYDROXYBUTYRATE BETA STAT 06/06/2024 12:22 PM CDT BLOOD GASES PRIYANK + COOX PANEL STAT 06/06/2024 12:22 PM CDT AMMONIA STAT 06/06/2024 12:20 PM CDT URINALYSIS REFLEX MICROSCOPIC REFLEX CULTURE STAT 06/06/2024 11:07 AM CDT CULTURE URINE STAT 06/06/2024 11:07 AM CDT GLUCOSE - POINT OF CARE Routine 06/07/19 11:06 AM CDT TROPONIN-I HIGH SENSITIVE REFLEX 1HOUR Timed 06/06/2024 10:[address] ABDOMEN PELVIS W CONTRAST STAT 06/06/2024 9:56 AM CDT Generalized abdominal pain HYDROXYBUTYRATE BETA STAT 06/06/2024 9:05 AM CDT PHOSPHORUS BLOOD STAT 06/06/2024 9:05 AM CDT TROPONIN-I HIGH SENSITIVE BASELINE + 1HR STAT 06/06/2024 9:05 AM CDT MAGNESIUM BLOOD STAT 06/06/2024 9:05 AM CDT LIPASE BLOOD STAT 06/06/2024 9:05 AM CDT COMPREHENSIVE METABOLIC PANEL STAT 06/06/2024 9:05 AM CDT CBC W AUTO DIFFERENTIAL STAT 06/07/19 9:05 AM CDT SARS-COV-2 (COVID-19) FLU A/B RSV PCR RAPID STAT 06/06/2024 9:05 AM CDT GLUCOSE - POINT OF CARE Routine 06/07/19 9:02 AM CDT XR CHEST 2VW STAT 06/06/2024 8:46 AM CDT SOB (shortness of breath) EKG 12-LEAD STAT 06/06/2024 8:44 AM CDT SOB (shortness of breath) US ABDOMEN LIMITED Routine 05/26/2024 8: 48 AM [employer] 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 URINALYSIS REFLEX MICROSCOPIC REFLEX CULTURE STAT 05/19/2024 8:22 AM [employer] CULTURE URINE STAT 05/19/2024 8:22 AM [employer] PT-INR [facility] STAT 05/18/2024 7:11 PM [employer] COMPREHENSIVE METABOLIC PANEL STAT 05/18/2024 7:11 PM [employer] CBC W AUTO DIFFERENTIAL STAT 05/18/19 7:11 PM [employer] PT-INR [facility] Routine 05/08/2024 8:19 AM [employer] 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 COMPREHENSIVE METABOLIC PANEL Routine 05/08/2024 8:19 AM [employer] 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 CBC W AUTO DIFFERENTIAL Routine 05/08/19 8:19 AM [employer] 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 GLUCOSE - POINT OF CARE Routine 05/04/19 5:09 PM [employer] PROTEIN BODY FLUID Routine 05/04/2024 5: 07 PM [employer] GLUCOSE BODY FLUID Routine 05/04/2024 5: 07 PM [employer] DIFFERENTIAL MANUAL FLUID Routine 05/04/2024 5:06 PM [employer] CELL COUNT W DIFFERENTIAL FLUID Routine 05/04/2024 5:06 PM [employer] CULTURE FLUID+GRAM STAIN Routine 05/04/2024 5:06 PM [employer] GLUCOSE - POINT OF CARE Routine 05/04/19 11:21 AM [employer] COMPREHENSIVE METABOLIC PANEL AM Draw 05/04/2024 10:15 AM [employer] MAGNESIUM BLOOD Routine 05/04/2024 10:15 AM [employer] CBC W/O DIFFERENTIAL Routine 05/04/2024 10:15 AM [employer] PHOSPHORUS BLOOD Routine 05/04/2024 10:1 5 AM [employer] GLUCOSE - POINT OF CARE Routine 05/04/19 8:32 AM [employer] GLUCOSE - POINT OF CARE Routine 05/03/19 11:31 PM [employer] GLUCOSE - POINT OF CARE Routine 05/03/19 9:31 PM [employer] CULTURE FLUID+GRAM STAIN STAT 05/03/2024 3:47 PM [employer] DIFFERENTIAL MANUAL FLUID STAT 05/03/2024 3:44 PM [employer] PROTEIN BODY FLUID STAT 05/03/2024 3: 44 PM [employer] GLUCOSE BODY FLUID STAT 05/03/2024 3: 44 PM [employer] CELL COUNT W DIFFERENTIAL FLUID STAT 05/03/2024 3:[address] ABDOMEN PELVIS W CONTRAST STAT 05/03/2024 1:47 PM [employer] Abdominal pain, generalized PT-INR [facility] STAT 05/03/2024 9:15 AM [employer] MAGNESIUM BLOOD STAT 05/03/2024 9:15 AM [employer] LIPASE BLOOD STAT 05/03/2024 9:15 AM [employer] COMPREHENSIVE METABOLIC PANEL STAT 05/03/2024 9:15 AM [employer] CBC W AUTO DIFFERENTIAL STAT 05/03/19 9:15 AM [employer] DIFFERENTIAL MANUAL Routine 04/26/2024 8 :10 AM [employer] 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 PT-INR [facility] Routine 04/26/2024 8:10 AM [employer] 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 COMPREHENSIVE METABOLIC PANEL Routine 04/26/2024 8:10 AM [employer] 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 BUN 28(H) 7 - 26 mg/dL 06/22/2024 1:16 PM [facility] Creatinine 1.72(H) 0.56 - 0.96 mg/dL 06/22/2024 1:16 PM [facility] Sodium 140 136 - 145 mmol/L 06/22/2024 1:16 PM [facility] Potassium 4.6(H) 3.5 - 4.5 mmol/L 06/22/2024 1:16 PM [facility] Chloride 110(H) 98 - 107 mmol/L 06/22/2024 1:16 PM [facility] CO2 22 22 - 29 mmol/L 06/22/2024 1:16 PM [facility] Glucose 208(H) 70 - 99 mg/dL 06/22/2024 1:16 PM [facility] Albumin 4.3 3.4 - 5.0 g/dL 06/22/2024 1:16 PM [facility] Calcium 9.9 8.4 - 10.2 mg/dL 06/22/2024 1:16 PM [facility] Phosphorus 3.3 2.9 - 5.1 mg/dL 06/22/2024 1:16 PM [facility] Anion Gap 8 6 - 16 06/22/2024 1:16 PM [facility] BUN/Creatinine Ratio 16 7 - 23 06/22/2024 1:16 PM [facility] Osmolality Calculated 302(H) 275 - 295 mOsm/kg 06/22/2024 1:16 PM [facility] eGFR by CKD-EPI 34(L) >=90 mL/min/1.7 3 m2 06/22/2024 1:16 PM CDT [facility] Blood BLOOD SPECIMEN / Unknown Lab Venipuncture / Unknown 06/22/2024 12:35 PM CDT 06/22/2024 12:49 PM CDT Manuel Paz MD LAB - CHEMISTRY ORDE RABREED Performing Organization Address City/[facility]/ZIP Co de Phone Number [address] [address], [facility] [phone] * (ABNORMAL) GLUCOSE - POINT OF CARE (06/22/2024 12:09 PM CDT) Only the most recent of35 resultswithin the time period is included. Glucose WB/POC 224(H) 70 - 99 mg/dL 06/22/2024 12:14 PM CDT [facility] Specimen Type Cap Fingerstick 2024 12:14 PM CDT [facility] Blood BLOOD SPECIMEN / Unknown 06/22/2024 12:09 PM CDT 06/22/2024 12:14 PM CDT Manuel Paz MD LAB - POINT OF CARE ORDERABLES Performing Organization Address City/[facility]/ZIP Co de Phone Number [address] [address], [facility] [phone] * (ABNORMAL) PT-INR [facility] (06/22/2024 4:02 AM CDT) Only the most recent of14 resultswithin the time period is included. PT 18.2(H) 12.1 - 14.8 Seconds 06/22/2024 5:24 AM T [facility] INR 1.6 See Comment 06/22/2024 5:24 AM T [facility] Comment:The suggested therap eutic range for standard coumadin (warfarin) therapy is an INR of 2.0-3.0. For high-risk patients (Mechanical Mitral Valve Prosthesis, etc.), the suggested prophylactic therapeutic range is an INR of 2.5-3.5. Blood BLOOD SPECIMEN / Unknown Lab Venipuncture / Unknown 06/22/2024 4:02 AM CDT 06/22/2024 5:02 AM CDT Manuel Paz MD LAB - COAGULATION OR DERABLES [facility] [address] [place] [address], [facility] [phone] * (ABNORMAL) CBC W/O DIFFERENTIAL (06/22/2024 4:02 AM CDT) Only the most recent of3 resultswithin the time period is included. [facility] WBC 1.7(L) 4.0 - 10.7 x10E9/L 06/22/2024 5:27 AM [facility] RBC Count 2.94(L) 3.90 - 5.20 x10E12/L 06/22/2024 5:27 AM [facility] Hemoglobin 8.2(L) 11.9 - 15.8 g/dL 06/22/2024 5:27 AM [facility] Hematocrit 25.2(L) 34.8 - 46.1 % 06/22/2024 5:27 AM [facility] MCV 85.7 80.0 - 98.0 fL 06/22/2024 5:27 AM [facility] MCH 27.9 26.7 - 33.6 pg 06/22/2024 5:27 AM [facility] MCHC 32.5 31.7 - 36.3 g/dL 06/22/2024 5:27 AM [facility] RDW-CV 13.5 11.3 - 14.8 % 06/22/2024 5:27 AM [facility] Platelet Count 36(L) 150 - 420 x10E9/L 06/22/2024 5:27 AM [facility] MPV 11.8(H) 7.8 - 11.4 fL 06/22/2024 5:27 AM [facility] Blood BLOOD SPECIMEN / Unknown Lab Venipuncture / Unknown 06/22/2024 4:02 AM CDT 06/22/2024 4:54 AM CDT Maneul Paz MD LAB - HEMATOLOGY ORD ERABLES [facility] [address] [place] [address], [facility] [phone] * (ABNORMAL) COMPREHENSIVE METABOLIC PANEL (06/22/2024 4:02 AM CDT) Only the most recent of17 resultswithin the time period is included. BUN 30(H) 7 - 26 mg/dL 06/22/2024 5:31 AM [facility] Creatinine 1.77(H) 0.56 - 0.96 mg/dL 06/22/2024 5:31 AM [facility] Sodium 140 136 - 145 mmol/L 06/22/2024 5:31 AM [facility] Potassium 4.5 3.5 - 4.5 mmol/L 06/22/2024 5:31 AM [facility] Chloride 110(H) 98 - 107 mmol/L 06/22/2024 5:31 AM [facility] CO2 22 22 - 29 mmol/L 06/22/2024 5:31 AM [facility] Glucose 158(H) 70 - 99 mg/dL 06/22/2024 5:31 AM [facility] Calcium 9.8 8.4 - 10.2 mg/dL 06/22/2024 5:31 AM [facility] Protein Total 6.4 6.0 - 8.3 g/dL 06/22/2024 5:31 AM [facility] Albumin 3.8 3.4 - 5.0 g/dL 06/22/2024 5:31 AM [facility] Bilirubin Total 0.9 0.2 - 1.2 mg/dL 06/22/2024 5:31 AM [facility] Alkaline Phosphatase 65 40 - 150 U/L 06/22/2024 5:31 AM [facility] ALT 17 5 - 55 U/L 06/22/2024 5:31 AM [facility] AST 25 5 - 34 U/L 06/22/2024 5:31 AM CDT [facility] Anion Gap 8 6 - 16 06/22/2024 5:31 AM CDT [facility] BUN/Creatinine Ratio 17 7 - 23 06/22/2024 5:31 AM T [facility] Osmolality Calculated 299(H) 275 - 295 mOsm/kg 06/22/2024 5:31 AM T [facility] Albumin/Globulin Ratio 1.5 1.1 - 2.3 06/22/2024 5:31 AM T [facility] eGFR by CKD-EPI 33(L) >=90 mL/min/1.7 3 m2 06/22/2024 5:31 AM T [facility] Blood BLOOD SPECIMEN / Unknown Lab Venipuncture / Unknown 06/22/2024 4:02 AM CDT 06/22/2024 4:56 AM CDT Manuel Paz MD LAB - CHEMISTRY ELLA PEREZ [address] [address], [facility] [phone] * PHOSPHORUS BLOOD (06/22/2024 4:02 AM CDT) Only the most recent of9 resultswithin the time period is included. Phosphorus 3.6 2.9 - 5.1 mg/dL 06/22/2024 5:31 AM T [facility] Blood BLOOD SPECIMEN / Unknown Lab Venipuncture / Unknown 06/22/2024 4:02 AM CDT 06/22/2024 4:56 AM CDT Manuel Paz MD LAB - CHEMISTRY ELLA PEREZ [address] [address], [facility] [phone] * MAGNESIUM BLOOD (06/22/2024 4:02 AM CDT) Only the most recent of10 resultswithin the time period is included. Magnesium 1.7 1.6 - 2.6 mg/dL 06/22/2024 5:31 AM T [facility] Blood BLOOD SPECIMEN / Unknown Lab Venipuncture / Unknown 06/22/2024 4:02 AM CDT 06/22/2024 4:56 AM CDT Manuel Paz MD LAB - CHEMISTRY ORDE RABLES Performing Organization Address City/[facility]/ZIP Co de Phone Number [facility] [address] [place] [phone], [facility] [phone] * UREA NITROGEN URINE RANDOM (06/20/2024 11:45 AM CDT) Only the most recent of2 resultswithin the time period is included. Urea Nitrogen Random Urine 751 Not Established mg/dL 06/20/2024 2:43 PM CDT [facility] Urine URINE SPECIMEN OBTAINED BY CLEAN CATCH PROCEDURE / Unknown Collection / Unknown 06/20/2024 11:45 AM CDT 06/20/2024 2:32 PM CDT Manuel Paz MD LAB - URINE CHEMISTR Y ORDERABLES Performing Organization Address [facility]/ZIP Co de Phone Number [address] [address], [facility] [phone] * (ABNORMAL) URINALYSIS REFLEX MICROSCOPIC REFLEX CULTURE (06/20/2024 11:34 AM CDT) Only the most recent of4 resultswithin the time period is included. Color UA Yellow Yellow, Straw 06/20/2024 11:41 AM CDT [facility] Clarity UA Clear Clear 06/20/2024 11:41 AM CDT [facility] Glucose UA Normal Normal 06/20/2024 11:41 AM CDT [facility] Bilirubin UA Negative Negative 06/20/2024 11:41 AM CDT [facility] Ketone UA Negative Negative 06/20/2024 11:41 AM CDT [facility] Specific Bouse UA 1.021 1.005 - 1.030 06/20/2024 11:41 AM CDT [facility] Blood UA Negative Negative 06/20/2024 11:41 AM CDT [facility] pH UA 5.5 5.0 - 9.0 pH 06/20/2024 11:41 AM [facility] Protein UA Trace(A) Negative 06/20/2024 11:41 AM [facility] Urobilinogen UA Normal Normal mg/dL 06/20/2024 11:41 AM [facility] Nitrite UA Negative Negative 06/20/2024 11:41 AM [facility] Leukocyte UA 500 MARIELENA/uL(A) Negative 06/20/2024 11:41 AM [facility] RBC UA 3-5 0 - 5 # /hpf 06/20/2024 11:41 AM [facility] WBC UA 21-50(A) 0 - 5 # /hpf 06/20/2024 11:41 AM [facility] Bacteria UA None Seen None Seen 06/20/2024 11:41 AM [facility] Squamous Epithelial Cells 6-10 0 - 5 /hpf 06/20/2024 11:41 AM [facility] Amorphous Crystals Occasional( A) None seen /hpf 06/20/2024 11:41 AM [facility] Urine URINE SPECIMEN OBTAINED BY CLEAN CATCH PROCEDURE / Unknown 06/20/2024 11:34 AM CDT 06/20/2024 11:34 AM CDT Jeff Wayne MD LAB - URINALYSIS ORD ERABLES Performing Organization Address City/[facility]/ZIP Co de Phone Number [address] [address], [facility] [phone] * CULTURE URINE (06/20/2024 11:34 AM CDT) Only the most recent of4 resultswithin the time period is included. Culture Urine <10,000 CFU/mL urogenital javan WILMER 06/22/2024 6:13 AM CDT [facility] Urine URINE SPECIMEN OBTAINED BY CLEAN CATCH PROCEDURE / Unknown 06/20/2024 11:34 AM CDT 06/20/2024 11:34 AM CDT Jeff Wayne MD LAB - MICROBIOLOGY O RDERABLES [facility] [address] [place] [address], [facility] [phone] * SODIUM URINE RANDOM (06/20/2024 11:34 AM CDT) Only the most recent of2 resultswithin the time period is included. Sodium Urine 58 Not Established mmol/L 06/20/2024 12:04 PM CDT [facility] Urine URINE SPECIMEN OBTAINED BY CLEAN CATCH PROCEDURE / Unknown Collection / Unknown 06/20/2024 11:34 AM CDT 06/20/2024 11:34 AM CDT Jeff Wayne MD LAB - URINE CHEMISTR Y ORDERABLES Performing Organization Address [facility] Co de Phone Number [facility] [address] [place] [address], [facility] [phone] * CREATININE URINE RANDOM (06/20/2024 11:34 AM CDT) Only the most recent of2 resultswithin the time period is included. Creatinine Urine 119.80 Not Established mg/dL 06/20/2024 12:04 PM CDT [facility] Urine URINE SPECIMEN OBTAINED BY CLEAN CATCH PROCEDURE / Unknown Collection / Unknown 06/20/2024 11:34 AM CDT 06/20/2024 11:34 AM CDT Jeff Wayne MD LAB - URINE CHEMISTR Y ORDERABLES Performing Organization Address [facility] Co de Phone Number [facility] [address] [place] [phone], [facility] [phone] * AMMONIA (06/20/2024 9:34 AM CDT) Only the most recent of2 resultswithin the time period is included. Ammonia 67 <=72 umol/L 06/20/2024 9:56 AM CDT [facility] Blood BLOOD SPECIMEN / Unknown Venipuncture / Unknown 06/20/2024 9:34 AM CDT 06/20/2024 9:41 AM CDT Jeff Wayne MD LAB - CHEMISTRY ELLA PEREZ [facility] [address] [place] [address], [facility] [phone] * (ABNORMAL) DIFFERENTIAL MANUAL (06/19/2024 7:04 PM CDT) Only the most recent of4 resultswithin the time period is included. Neutrophil % 37(L) 41 - 74 % 06/19/2024 8:11 PM T [facility] Lymphocyte % 47 17 - 47 % 06/19/2024 8:11 PM [facility] Monocyte % 10 3 - 11 % 06/19/2024 8:11 PM [facility] Eosinophil % 6 0 - 7 % 06/19/2024 8:11 PM [facility] Neutrophil Absolute 0.78(L) 1.60 - 7.50 x10E9/L 06/19/2024 8:11 PM [facility] Lymphocyte Absolute 0.99(L) 1.00 - 4.40 x10E9/L 06/19/2024 8:11 PM [facility] Monocyte Absolute 0.21 0.15 - 1.00 x10E9/L 06/19/2024 8:11 PM [facility] Eosinophil Absolute 0.13 0.00 - 0.60 x10E9/L 06/19/2024 8:11 PM [facility] RBC Morphology REVIEWED 06/19/2024 8:11 PM [facility] Microcytosis MANY(A) (none) 06/19/2024 8:11 PM [facility] Blood BLOOD SPECIMEN / Unknown Venipuncture / Unknown 06/19/2024 7:04 PM CDT 06/19/2024 7:21 PM CDT Annette Colbert PA-C LAB - HEMATOL OGY ORDERABLES [facility] [address] [place] [phone], [facility] [phone] * (ABNORMAL) CBC W AUTO DIFFERENTIAL (06/19/2024 7:04 PM CDT) Only the most recent of13 resultswithin the time period is included. [facility] WBC 2.1(L) 4.0 - 10.7 x10E9/L 06/19/2024 8:11 PM CDT [facility] RBC Count 3.75(L) 3.90 - 5.20 x10E12/L 06/19/2024 8:11 PM T [facility] Hemoglobin 10.6(L) 11.9 - 15.8 g/dL 06/19/2024 8:11 PM [facility] Hematocrit 32.8(L) 34.8 - 46.1 % 06/19/2024 8:11 PM T [facility] MCV 87.5 80.0 - 98.0 fL 06/19/2024 8:11 PM T [facility] MCH 28.3 26.7 - 33.6 pg 06/19/2024 8:11 PM T [facility] MCHC 32.3 31.7 - 36.3 g/dL 06/19/2024 8:11 PM [facility] RDW-CV 13.6 11.3 - 14.8 % 06/19/2024 8:11 PM T [facility] Platelet Count 47(L) 150 - 420 x10E9/L 06/19/2024 8:11 PM T [facility] MPV 10.0 7.8 - 11.4 fL 06/19/2024 8:11 PM [facility] Blood BLOOD SPECIMEN / Unknown Venipuncture / Unknown 06/19/2024 7:04 PM CDT 06/19/2024 7:21 PM CDT Annette Colbert PA-C LAB - HEMATOL OGY ORDERABLES [facility] [address] [address], [facility] [phone] * PROTEIN URINE TIMED QUANTITATIVE (06/08/2024 4:00 PM CDT) [facility] Protein Urine <7 Not Established mg/dL 06/08/2024 5:34 PM [facility] Collection Time Timed Urine 24 Hrs 06/08/2024 5:34 PM [facility] Protein 24 Hour Urine <147 77 - 197 mg/24 hrs 06/08/2024 5:34 PM [facility] Comment:Unable to calculate excretion rate because the analyte concentration is outside the instrument measuring range. Volume Timed Urine 2,100 mL 06/08/2024 5:34 PM [facility] Urine TIMED URINE SPECIMEN / Unknown 06/08/2024 4:00 PM CDT 06/08/2024 5:03 PM CDT Frank Schaefer MD LAB - URINE CH EMISTRY ORDERABLES [facility] [address] [place] [phone], [facility] [phone] * (ABNORMAL) BLOOD GASES PRIYANK + COOX PANEL (06/07/2024 6:21 PM CDT) Only the most recent of2 resultswithin the time period is included. Pathologist [facility] pH Venous 7.42 7.32 - 7.42 pH 06/07/2024 6:40 PM [facility] pO2 Venous 90(H) 35 - 40 mmHg 06/07/2024 6:40 PM [facility] pCO2 Venous 39(L) 40 - 50 mmHg 06/07/2024 6:40 PM [facility] HCO3 Venous 25.3 20 - 30 mmol/L 06/07/2024 6:40 PM [facility] Base Excess Venous 0.8 -2.0 - 2.0 mmol/L 06/07/2024 6:40 PM [facility] Oxyhemoglobin Venous 95.8 % 05/20 6:40 PM [facility] Deoxyhemoglobin (HHB) Venous % <1.0 % 06/07/2024 6:40 PM [facility] Methemoglobin <0.8 0.0 - 2.0 % 06/07/2024 6:40 PM CDT [facility] Carboxyhemoglobin 4.1(H) 0.0 - 2.0 % 2024 6:40 PM CDT [facility] O2 Content Venous 11.6 Interpret within clinical context ml/dL 06/07/2024 6:40 PM CDT [facility] Hemoglobin by COOX 8.5(L) 12.0 - 15.6 g/dL 06/07/2024 6:40 PM CDT [facility] O2 Saturation Venous 100 >=70 % 05/20 6:40 PM CDT [facility] Blood BLOOD SPECIMEN / Unknown Venipuncture / Unknown 06/07/2024 6:21 PM CDT 06/07/2024 6:33 PM CDT Narrative [facility] - 06/07/2024 6:40 PM CDT Carboxyhemoglobin Normal Concentration: Non-smokers: 0-2%; Smokers: 0-9%; Toxic: >20% Frank Schaefer MD LAB - BLOOD GA SES ORDERABLES [address] [address], [facility] [phone] * HYDROXYBUTYRATE BETA (06/07/2024 6:21 PM CDT) Only the most recent of3 resultswithin the time period is included. Beta-Hydroxybu tyrate <0.50 <0.50 mmol/L 06/07/2024 7:11 PM CDT [facility] Blood BLOOD SPECIMEN / Unknown Venipuncture / Unknown 06/07/2024 6:21 PM CDT 06/07/2024 6:37 PM CDT Frank Schaefer MD LAB - CHEMISTR Y ORDERABLES [address] [address], [place] [phone] * (ABNORMAL) HEMOGLOBIN A1C (06/07/2024 5:15 AM CDT) Hemoglobin A1c 8.6(H) <=5.6 % 06/07/2024 10:01 AM CDT [facility] Estimated Average Glucose 200 mg/dL 06/07/2024 10:01 AM CDT [facility] Comment: HbA1c Interpretation: Normal : < 5.7% Pre-diabetes: 5.7-6.4% Diabetes: Equal to or greater than 6.5% Test results diagnostic of diabetes should be repeated for confirmation. Treatment target values recommended by ADA and other clinical organizations should be used to evaluate metabolic control in patients. Reference: [place] [employer], Standards of Care in Diabetes -2020 In patients 70 years and older consider HbA1c target range of 7.0-7.5% (Reference: Сергей Dixon et al. JASPREETDA. 2012) The Se[employer] assay for the measurement of HbA1c is a National Glycohemoglobin Standardization Program (NGSP) certified method. Blood BLOOD SPECIMEN / Unknown Venipuncture / Unknown 06/07/2024 5:15 AM CDT 06/07/2024 5:37 AM CDT Jeff Wayne MD LAB - CHEMISTRY ELLA PEREZ [facility] [address] [place] [address], [place] [phone] * CULTURE BLOOD (06/06/2024 1:39 PM CDT) Only the most recent of2 resultswithin the time period is included. [facility] Culture No growth day 5 WILMER 06/11/2024 4:32 PM CDT [facility] Blood PERIPHERAL BLOOD / Unknown Lab Venipuncture / Unknown 06/06/2024 1:39 PM CDT 06/06/2024 1:44 PM CDT Jeff Wayne MD LAB - MICROBIOLOGY O RDERABLES [facility] [address] [place] [address], [place] [phone] * TROPONIN-I HIGH SENSITIVE REFLEX 1HOUR (06/06/2024 10:57 AM CDT) Troponin I High Sensitive <3 <=14 ng/L 06/06/2024 11:42 AM CDT [facility] Delta Troponin I HS 06/06/2024 11:42 AM CDT [facility] Comment:Delta value intentio yue not calculated. Baseline to 1 hour specimen collection interval exceeded. Blood BLOOD SPECIMEN / Unknown Venipuncture / Unknown 06/06/2024 10:57 AM CDT 06/06/2024 11:00 AM CDT Annette Colbert PA-C LAB - FIELD REPRESENTATIVE RY ORDERABLES [facility] [address] [place] [phone], [facility] [phone] * CT Abdomen Pelvis W Contrast (06/06/2024 9:56 AM CDT) Only the most recent of2 resultswithin the time period is included. Anatomical Region Laterality Modality Abdomen, Pelvis Computed Tomogra phy 06/06/2024 10:0 4 AM CDT Impressions 06/06/2024 10:20 PM CDT Impression: 1.Cirrhosis with sequela of portal hypertension including large paraesophageal perisplenic and perigastric varices, recanalized umbilical vein and splenomegaly. Interval improvement/almost complete resolution of ascites. 2.Tiny punctate hyperdense observation, denser than arterial structures, new compared to prior exam, may represent newly developed calcification. Attention on follow-up is recommended. 3.Mild wall thickening of the small bowel loops in the left upper quadrant, may represent portal enteropathy. The report was drafted by Lashonda Whitmore MD (client services vice president) 06/06/2024 10:04 AM. > Dictated by Lashonda Whitmore MD (Diesel Fleet Mechanic) 06/06/2024 10:04 AM Francisco Guerrero MD have personally reviewed and interpreted this examination/study. > Interpreting Provider: Francisco Molina MD on 06/06/2024 10:20 PM Narrative 06/06/2024 10:20 PM CDT PROCEDURE: CT ABDOMEN PELVIS W CONTRAST, DATE/TIME OF EXAM: 06/06/2024 9:58 AM, LOCATION [facility] INDICATION: R10.84: Generalized abdominal pain ADDITIONAL CLINICAL INFORMATION: Ordering Provider Reason For Exam: abdominal pain COMPARISON: CT abdomen pelvis with contrast from 05/03/2024. TECHNIQUE: CT of the abdomen and pelvis was performed after the uneventful administration of 100 mL of Isovue 370 intravenous contrast according to standard protocol. Findings: Lower chest: Normal. Liver: The liver is nodular in contour and slightly heterogeneous representing hepatic cirrhosis. No hepatic observations are seen on this single phase examination. The main portal vein is patent. The right portal vein is diminutive. The umbilical vein is recanalized. Extensive paraesophageal, perisplenic and perigastric varices are seen. Tiny punctate hyperdense lesion (series 3 image 25, series 4 image 105), measuring denser than arterial structures is seen, new compared to prior exam, unclear etiology but may represent a calcification. Gallbladder and Bile Ducts: The gallbladder is absent. Nondilated bile ducts. Spleen: Enlarged. Pancreas: Normal. Adrenals: Normal. Kidneys: The kidneys appear mildly atrophic and lobulated, may represent scarring. There is hydronephrosis or renal calculi. Gastrointestinal: The stomach is unremarkable. There is mild wall thickening of the small bowel loops in the left upper quadrant, may represent portal enteropathy. Colonic diverticulosis without evidence of diverticulitis is seen. Normal appendix. Mesentery/Peritoneum/Retroperitoneum: No free intraperitoneal air. Interval improvement/almost complete resolution of previously seen ascites. Bladder: Normal. Reproductive Organs: The uterus is absent. Abdominal Vasculature: Atherosclerotic calcification of the aorta and its branch vessels. Bones/soft tissues: Bone windows demonstrate no suspicious lytic or blastic lesions. The visible osseous structures are intact. Degenerative changes are seen in the lower thoracic and lumbar spine. There is contiguous anterior flowing osteophytes in the lower thoracic spine, representing diffuse idiopathic skeletal hyperostosis. Procedure Note Rosalia Molina MD - 06/06/2024 PROCEDURE: CT ABDOMEN PELVIS W CONTRAST, DATE/TIME OF EXAM: 06/06/2024 9:58 AM, LOCATION [facility] INDICATION: R10.84: Generalized abdominal pain ADDITIONAL CLINICAL INFORMATION: Ordering Provider Reason For Exam: abdominal pain COMPARISON: CT abdomen pelvis with contrast from 05/03/2024. TECHNIQUE: CT of the abdomen and pelvis was performed after theuneventful administration of 100 mL of Isovue 370 intravenous contrast according to standard protocol. Findings: Lower chest: Normal. Liver: The liver is nodular in contour and slightly heterogeneous representing hepatic cirrhosis. No hepatic observations are seen on this single phase examination. The main portal vein is patent. The right portal vein is diminutive. The umbilical vein is recanalized. Extensive paraesophageal, perisplenic and perigastric varices are seen. Tiny punctate hyperdense lesion (series 3 image 25, series 4 image 105), measuring denser than arterial structures is seen, new compared to prior exam, unclear etiology but may represent a calcification. Gallbladder and Bile Ducts: The gallbladder is absent. Nondilated bile ducts. Spleen: Enlarged. Pancreas: Normal. Adrenals: Normal. Kidneys: The kidneys appear mildly atrophic and lobulated, may representscarring. There is hydronephrosis or renal calculi. Gastrointestinal: The stomach is unremarkable. There is mild wall thickening of the small bowel loops in the left upper quadrant, may represent portal enteropathy. Colonic diverticulosis without evidence of diverticulitis is seen.Normal appendix. Mesentery/Peritoneum/Retroperitoneum: No free intraperitoneal air. Interval improvement/almost complete resolution of previously seen ascites. Bladder: Normal. Reproductive Organs: The uterus is absent. Abdominal Vasculature: Atherosclerotic calcification of the aorta and its branch vessels. Bones/soft tissues: Bone windows demonstrate no suspicious lytic or blastic lesions. The visible osseous structures are intact. Degenerative changes are seen inthe lower thoracic and lumbar spine. There is contiguous anterior flowing osteophytes in the lower thoracic spine, representing diffuse idiopathic skeletal hyperostosis. Impression: 1.Cirrhosis with sequela of portal hypertension including large paraesophageal perisplenic and perigastric varices, recanalizedumbilical vein and splenomegaly. Interval improvement/almost complete resolutionof ascites. 2.Tiny punctate hyperdense observation, denser than arterial structures, new compared to prior exam, may represent newly developed calcification. Attention on follow-up is recommended. 3.Mild wall thickening of the small bowel loops in the left upperquadrant, may represent portal enteropathy. The report was drafted by Lashonda Whitmore MD (client services vice president) 06/06/2024 10:04 AM. > Dictated by Lashonda Whitmore MD (Diesel Fleet Mechanic) 06/06/2024 10:04AM IFrancisco MD have personally reviewed and interpreted this examination/study. > Interpreting Provider: Francisco Molina MD on 06/06/2024 10:20 PM Annette Colbert PA-C CT ORDERABLES * SARS-COV-2 (COVID-19) FLU A/B RSV PCR RAPID (06/06/2024 9:05 AM CDT) COVID-19 PCR Not detected Not detected 06/07/19 9:54 AM CDT [facility] Influenza A PCR Not detected Not detected 06/06/2024 9:54 AM CDT [facility] Influenza B PCR Not detected Not detected 06/06/2024 9:54 AM CDT [facility] RSV PCR Not detected Not detected 06/06/2024 9:54 AM CDT [facility] Microbiology SPECIMEN FROM NASOPHARYNGEAL STRUCTURE / Unknown Collection / Unknown 06/06/2024 9:05 AM CDT 06/06/2024 9:12 AM CDT Narrative [facility] - 06/06/2024 9:54 AM CDT This nucleic acid amplification assay has been authorized by the Food and Drug administration (FDA) under an Emergency Use Authorization (EUA). This test is only authorized for the duration of time the declaration that circumstances exist justifying the authorization of emergency use of in vitro diagnostic tests for detection of SARS-CoV-2 virus and/or diagnosis of COVID-19 infection under section 564(b)(1) of the Act, 21 U.S.C 360bbb-3 (b)(1), unless the authorization is terminated or revoked sooner. Fact Sheets for this EUA assay are available upon request. Annette Colbert PA-C LAB - MICROBI OLOGY ORDERABLES [facility] [address] [place] [phone], [facility] [phone] * TROPONIN-I HIGH SENSITIVE BASELINE + 1HR (06/06/2024 9:05 AM CDT) Troponin I High Sensitive <3 <=14 ng/L 06/06/2024 9:51 AM CDT [facility] Blood BLOOD SPECIMEN / Unknown Venipuncture / Unknown 06/06/2024 9:05 AM CDT 06/06/2024 9:16 AM CDT [facility] File[facility]-C LAB - FIELD REPRESENTATIVE RY ORDERABLES Performing Organization Address City/[facility]/ZIP Co de Phone Number [facility] [address] [place] [phone], [facility] [phone] * (ABNORMAL) LIPASE BLOOD (06/06/2024 9:05 AM CDT) Only the most recent of2 resultswithin the time period is included. Lipase 101(H) 8 - 78 U/L 06/06/2024 9:46 AM CDT [facility] Blood BLOOD SPECIMEN / Unknown Venipuncture / Unknown 06/06/2024 9:05 AM CDT 06/06/2024 9:16 AM CDT Narrative [facility] - 06/06/2024 9:46 AM CDT Lipase results from the [employer] Alinity analyzer may not be comparable with other methodologies. Annette Lundbergth Filemon PARADA-C LAB - FIELD REPRESENTATIVE RY ORDERABLES Performing Organization Address City/[facility]/ZIP Co de Phone Number [address] [phone], [facility] [phone] * XR CHEST 2VW (06/06/2024 8:46 AM CDT) Anatomical Region Laterality Modality Chest Digital Radiogra phy 06/06/2024 8:53 AM CDT Impressions 06/06/2024 9:45 AM CDT IMPRESSION: No acute Cardiopulmonary abnormality. This preliminary report was dictated by Stephon Huggins MD (DR/IR Resident). I, Delia Boles MD have personally reviewed and interpreted this examination/study. > Interpreting Provider: Delia Boles MD on 06/06/2024 9:45 AM Narrative 06/06/2024 9:45 AM CDT PROCEDURE: XR CHEST 2VW, DATE/TIME OF EXAM: 06/06/2024 8:46 AM, LOCATION [facility] INDICATION: R06.02: SOB (shortness of breath) ADDITIONAL CLINICAL INFORMATION: Ordering Provider Reason For Exam: SOB Technologist Note: Additional: COMPARISON: Chest radiograph dated 03/08/2024 TECHNIQUE: Upright PA and lateral radiographs of the chest were obtained. FINDINGS Hardware, tubes, lines, miscellaneous: *Incompletely visualized cervical ACDF hardware appears intact. *Cholecystectomy clips are seen in the right upper quadrant. A calcified pulmonary nodule is seen within the right upper lung field, unchanged. Multiple calcified hilar nodes are seen, likely sequelae of prior granulomatous infection. There is no focal consolidation, pleural effusion, or pneumothorax. The cardiomediastinal silhouette is normal. Unchanged slight wedge compression of a lower thoracic vertebral body. Otherwise the visible bony thorax is intact. Procedure Note Delia Boles MD - 06/06/2024 PROCEDURE: XR CHEST 2VW, DATE/TIME OF EXAM: 06/06/2024 8:46 AM, LOCATION [facility] INDICATION: R06.02: SOB (shortness of breath) ADDITIONAL CLINICAL INFORMATION: Ordering Provider Reason For Exam: SOB Technologist Note: Additional: COMPARISON: Chest radiograph dated 03/08/2024 TECHNIQUE: Upright PA and lateral radiographs of the chest wereobtained. FINDINGS Hardware, tubes, lines, miscellaneous: *Incompletely visualized cervical ACDF hardware appears intact. *Cholecystectomy clips are seen in the right upper quadrant. A calcified pulmonary nodule is seen within the right upper lung field, unchanged. Multiple calcified hilar nodes are seen, likely sequelae of prior granulomatous infection. There is no focal consolidation, pleural effusion, or pneumothorax. The cardiomediastinal silhouette is normal. Unchanged slight wedge compression of a lower thoracic vertebral body. Otherwise the visible bony thorax is intact. IMPRESSION: No acute Cardiopulmonary abnormality. This preliminary report was dictated by Stephon Huggins MD (DR/IR Resident). I, Delai Boles MD have personally reviewed and interpreted this examination/study. > Interpreting Provider: Delia Boles MD on 06/06/2024 9:45 AM Annettegamal Jernigantwin Colbert PA-C DIAGNOSTIC IM AGING ORDERABLES * EKG 12-LEAD (06/06/2024 8:44 AM CDT) Ventricular Rate 69 BPM [facility] Atrial Rate 69 BPM [facility] P-R Interval 152 ms [facility] QRS Duration ms 86 ms [facility] Q-T Interval ms 418 ms [facility] QTC Calculation (Bezet) 447 ms [facility] Calculated P [place] 102 degrees [facility] Calculated R [place] -4 degrees [facility] Calculated T [place] 50 degrees [facility] Interpretation EKG NORMAL SINUS RHYTHM MODERATE VOLTAGE CRITERIA FOR LVH, MAY BE NORMAL VARIANT ( R in aVL , [place] product ) BORDERLINE ECG WHEN COMPARED WITH ECG OF 08-MAR-2024 20:07, NO SIGNIFICANT CHANGE WAS FOUND Confirmed by JAKE COLLADO MD ([id number]) on 06/11/2024 10:22:18 PM [facility] 06/06/2024 8:44 AM CDT 06/11/2024 10:22 PM CDT Annette Korinatwin Colbert PA-C ECG ORDERABLE S [facility] * US Abdomen Limited (05/26/2024 8:48 AM [facility]) Anatomical Region Laterality Modality Abdomen Ultrasound 05/26/2024 9:07 AM [facility] Impressions 05/26/2024 9:11 AM [facility] [facility] IMPRESSION: Liver Visualization Score C: Severe limitations. This is due to body habitus and bowel gas US-1 Negative. Repeat surveillance US in 6 months. Hepatic cirrhosis and portal hypertension with moderate volume ascites. 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 TECHNIQUE: Real-time ultrasound of the upper abdomen with DICOM image capture performed by electronic technologist. FINDINGS: Liver Visualization Score: Severe limitations in liver visualization due to body habitus and bowel gas. Liver Morphology: The liver has a coarse echotexture and nodular surface. There is a 6 mm calcified granuloma in the right hemiliver. Liver Observations: None. Main Portal Vein: Color Doppler evaluation demonstrates patency of the main portal vein. There is a recanalized umbilical vein. Hepatic Veins: Color Doppler evaluation demonstrates patency of the hepatic veins. Bile Ducts: The common bile duct is not visualized. No intrahepatic biliary dilation. Gallbladder: The gallbladder is absent. Ascites: Moderate volume ascites is present. Spleen: The spleen measures 17.8 cm in length. Pancreas: The visible pancreas is normal in echogenicity. Right Kidney: The right kidney measures 9.8 cm in length. Limited views of the right kidney reveal no evidence of nephrolithiasis or hydronephrosis. No discrete mass identified. 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 TECHNIQUE: Real-time ultrasound of the upper abdomen with DICOM image capture performed by electronic technologist. FINDINGS: Liver Visualization Score: Severe limitations in liver visualization due to body habitus and bowel gas. Liver Morphology: The liver has a coarse echotexture and nodular surface. There is a 6 mm calcified granuloma in the right hemiliver. Liver Observations: None. Main Portal Vein: Color Doppler evaluation demonstrates patency of the main portal vein. There is a recanalized umbilical vein. Hepatic Veins: Color Doppler evaluation demonstrates patency of the hepatic veins. Bile Ducts: The common bile duct is not visualized. No intrahepatic biliarydilation. Gallbladder: The gallbladder is absent. Ascites: Moderate volume ascites is present. Spleen: The spleen measures 17.8 cm in length. Pancreas: The visible pancreas is normal in echogenicity. Right Kidney: The right kidney measures 9.8 cm in length. Limited views of the right kidney reveal no evidence of nephrolithiasis or hydronephrosis. No discrete mass identified. IMPRESSION: Liver Visualization Score C: Severe limitations. This is due to body habitus and bowel gas US-1 Negative. Repeat surveillance US in 6 months. Hepatic cirrhosis and portal hypertension with moderate volume ascites. > Interpreting Provider: Jason Gibson MD on 05/26/2024 9:11 AM Allison Leavitt STAVE INSPECTOR-GAUGE OPERATOR US ORDERABL ES * PROTEIN BODY FLUID (05/04/2024 5:07 PM [facility]) Only the most recent of2 resultswithin the time period is included. [facility] Protein Fluid 1.8 Not Established For Fluids g/dL 05/04/2024 5:53 PM [facility] [facility] Fluid Type Peritoneal Fluid 05/04/2024 5:53 PM [employer] Fluid PERITONEAL FLUID / Unknown Collection / Unknown 05/04/2024 5:07 PM [facility] [facility] 05/04/2024 5:19 PM [facility] - 05/04/2024 5:53 PM [employer] The analytical performance of this test has been independently validated by the laboratory. A reference range has not been established for this fluid. Comparison of this result with the concentration in blood, serum or plasma is recommended. Jorge Tran MD LAB - BODY FLUID ORD ERABLES [facility] [address] [place] [phone], [facility] [phone] * GLUCOSE BODY FLUID (05/04/2024 5:07 PM [employer] [facility]) Only the most recent of2 resultswithin the time period is included. [facility] Glucose Fluid 281 Not Established For Fluids mg/dL 05/04/2024 5:53 PM [facility] [facility] [facility] Fluid Type Peritoneal Fluid 05/04/2024 5:53 PM [employer] Fluid PERITONEAL FLUID / Unknown Collection / Unknown 05/04/2024 5:07 PM [employer] [facility] 05/04/2024 5:19 PM [employer] [facility] Narrative [facility] - 05/04/2024 5:53 PM [employer] The analytical performance of this test has been independently validated by the laboratory. A reference range has not been established for this fluid. Comparison of this result with the concentration in blood, serum or plasma is recommended. Jorge Tarn MD LAB - BODY FLUID ORD ERABLES [address] [phone], [facility] [phone] * DIFFERENTIAL MANUAL FLUID (05/04/2024 5:06 PM [employer] [facility]) Only the most recent of2 resultswithin the time period is included. Fluid Source Peritoneal 05/04/2024 7:10 PM [facility] [facility] [facility] Body Fluid Total Cell Count 100 x10E6/L 05/04/2024 7:10 PM [facility] Neutrophils Fluid Percent 1 % 05/04/2024 7:10 PM [facility] Lymphocytes Fluid Percent 40 % 05/04/2024 7:10 PM [employer] Macrophages Fluid Percent 59 % 05/04/2024 7:10 PM [facility] Fluid PERITONEAL FLUID / Unknown Collection / Unknown 05/04/2024 5:06 PM [facility] [facility] 05/04/2024 5:18 PM [employer] Narrative [facility] - 05/04/2024 7:10 PM [employer] No reference ranges established for body fluid differential cell counts. The test results must be integrated into the clinical context for interpretation. Jorge Tran MD LAB - BODY FLUID ORD ERABLES [facility] [address] [place] [phone], [place] [phone] * CULTURE FLUID+GRAM STAIN (05/04/2024 5:06 PM [facility] [facility]) Only the most recent of2 resultswithin the time period is included. Culture No growth WILMER 05/09/2024 12:22 PM [facility] [facility] MICROBIOLOGY Other PERITONEAL FLUID / Unknown Collection / Unknown 05/04/2024 5:06 PM [facility] [facility] 05/04/2024 5:21 PM [employer] Narrative [facility] - 05/09/2024 12:22 PM [employer] Bottles only, no gram stain Jorge Tran MD LAB - MICROBIOLOGY O RDERABLES [facility]CRO[facility] [address] [place] [address], [facility] [phone] * CELL COUNT W DIFFERENTIAL FLUID (05/04/2024 5:06 PM [facility] [facility] [facility]) Only the most recent of2 resultswithin the time period is included. Fluid Source Peritoneal 05/04/2024 7:10 PM [facility] Fluid Appearance SLIGHTLY HAZY 05/04/2024 7:10 PM [facility] Fluid Color STRAW 05/04/2024 7:10 PM [facility] Total Nucleated Cells Fluid 417 Reference Range Not Established x10E6/L 05/04/2024 7:10 PM [facility] RBC Count Fluid <2,000 Reference Range Not Established x10E6/L 05/04/2024 7:10 PM [facility] Fluid PERITONEAL FLUID / Unknown Collection / Unknown 05/04/2024 5:06 PM [facility] [facility] 05/04/2024 5:18 PM [employer] [facility] Narrative [facility] - 05/04/2024 7:10 PM [employer] No reference ranges established for body fluid cell counts. Any reference ranges provided are derived from published literature. The test results must be integrated into the clinical context for interpretation. Jorge Tran MD LAB - BODY FLUID ORD ERABLES [facility] [address] [place] [address], [place] [phone] from Last 3 Months Advance Directives * Full Code (Latest Code Status on File) Date Activated Date Inactivated Comments 06/20/2024 11:00 AM 06/22/2024 5:03 PM * Full Code Date Activated Date Inactivated Comments 06/06/2024 12:53 PM 06/11/2024 4:22 PM * Full Code Date Activated Date Inactivated Comments 05/03/2024 7:21 PM 05/04/2024 8:23 PM * Full Code Date Activated Date Inactivated Comments 03/08/2024 9:15 PM 03/09/2024 5:34 PM * Full Code Date Activated Date Inactivated Comments 03/01/2024 9:42 PM 03/05/2024 2:49 PM Care Teams Ground Wirer Relationship Specialty Start Date End Date Kasey Williamson, [address] [place] [phone] PCP - General Family Medicine 12/27/23
--- OUTSIDE RECORDS SUMMARY | 2024-06-27 09:00 | XMS_ITS | Clinical Summary ---
Author Organization [facility] HealthCare Care Team Providers Care Clerk Guide Name Role Phone Vicenta Raymond DO Unavailable [phone] Vaughn Bradshaw MD Primary Care Provider [phone] Allergies No known active allergies Medications albuterol [...] (02/20/2022): Added automatically from request for surgery [id number] Postmenopausal bleeding 09/04/202104/22 Overview (09/04/2021): Added automatically from request for surgery [id number] Immunizations Immunization Administration Dates Next Due Hep A / Hep B 02/17/2018 Influenza, Quadrivalent, Martha l Culture-based MDCK, Antibiotic Free, Intramuscular 02/17/2018 Influenza, Quadrivalent, Spl it, Preservative Free, Intramuscular 02/03/2022,01/20/2021,01/30/2019 Pneumococcal Polysaccharide PPV23 02/17/2018 Tdap 05/18/2018 Surgical History Surgery Date Site/Laterality Comments TONSILLECTOMY TUBAL LIGATION CERVICAL FUSION ROTATOR CUFF REPAIR Right CARPAL TUNNEL RELEASE Bilateral ESOPHAGOGASTRODUODENOSCOPY COLONOSCOPY CHOLECYSTECTOMY DILATION AND CURETTAGE, DIAG NOSTIC / THERAPEUTIC ABLATION LAPAROSCOPIC TOTAL HYSTERECTOMY 03/22/2022 - 03/21/2023 TL-BS for AUB, Path - adenomoysis Medical History Medical History Date Comments Diabetes (HCC) NASCIMENTO (nonalcoholic steatohepatitis) High cholesterol Hypothyroidism Hypertension Sleep apnea Cancer (HCC) skin cancer Type 2 diabetes mellitus (HCC) Headache Depression Allergic rhinitis Gout Family History Medical History Relation Name Comments Bipolar disorder Daughter Diabetes Father Heart disease Father Hypertension Father Stroke Father Developmental delay Maternal Grandmother Heart attack Mother Heart disease Mother Cancer Paternal Grandmother Bipolar disorder Son Schizophrenia Son Relation Name Status Comments Daughter Father Maternal Grandmother Mother Paternal Grandmother Son Social History Tobacco Use Types Packs/Day Years [...] file Not on file Not on file Obstetrics History Para Term AB IAB SAB Ectopic Multiple Livin g Live Births 4 4 4 Date Outcome GA Total Labor Labor/04/24 Weight Sex Type Anes PTL A1 A5 Name Clin 1978 Term 2.438 kg (5 lb 6 oz) M Vag-Sp ont 1984 Term 3.345 kg (7 lb 6 oz) M Vag-Sp ont 1985 Term 3.685 kg (8 lb 2 oz) M Vag-Sp ont 1986 Term 3.402 kg (7 lb 8 oz) F Vag-Sp ont Last Filed Vital Signs Vital Sign Reading Time Taken Comments Blood Pressure 138/82 05/08/2022 11:08 AM OBSTETRICIAN GYNECOLOGIST Pulse 94 03/24/2022 4:20 PM OBSTETRICIAN GYNECOLOGIST Temperature 36.9 C (98.5 F) 03/24/2022 4:20 PM OBSTETRICIAN GYNECOLOGIST Respiratory Rate 16 03/24/2022 4:20 PM OBSTETRICIAN GYNECOLOGIST Oxygen Saturation 97% 03/24/2022 4:20 PM OBSTETRICIAN GYNECOLOGIST Inhaled Oxygen Concentration - - Weight 111.9 kg (246 lb 9.6 oz) 023 11:08 AM OBSTETRICIAN GYNECOLOGIST Height 154.9 cm (5' 1 ) 03/24/2022 6:50 AM OBSTETRICIAN GYNECOLOGIST Body Mass Index 46.59 03/24/2022 6:50 AM OBSTETRICIAN GYNECOLOGIST Plan of Treatment Health Maintenance Due Date Last Done Comments Albumin Creatinine Ratio, Urine 1963 Cervical Cancer Screening 1963 Colon Cancer Screening-Colonoscopy 1963 Depression Screening 1963 Hepatitis C Screening 1963 eGFR 1963 Dilated Eye Exam 1963 Foot Exam 1963 Lipid Panel 1963 Regular Well Visit/Exam 18-64 10/01/1981 Zoster Vaccine (1 of 2) 10/01/2013 Pneumococcal vaccine <65 (2 of 2 - PCV) 02/17/2019 02/17/2018 Covid-19 Vaccine (4 - 2023-2 5 season) 2023 05/17/2021, 11/16/2020, 10/19/2020 Hemoglobin A1C 01/05/2024 07/06/2023, 09/24/2021 Breast Cancer Screening-Mammogram 07/28/2024 07/29/2023, 01/06/2021, 01/25/2018 Influenza Vaccine (Season Ended) 2024 12/07/2022, 02/03/2022, 01/20/2021, Additional history exists DTaP/Tdap/Td Vaccine (2 - Td or Tdap) 05/18/2028 05/18/2018 Procedures Procedure Name Priority Date/Time Associated Diagnosis [...] Most Recently Relevant to Health Maintenance Insurance [facility] MEDICARE O [facility] [employer] HMO Care Teams Clerk Guide Relationship Specialty Start Date End Date Vaughn Bradshaw MD [address] [address] [place] [address] PCP - General Family Medicine 12/30/21 Vicenta Raymond DO [address] [place] [address] Consulting Physician Obstetrics and Gynecology 09/09/21
--- OUTSIDE RECORDS SUMMARY | 2024-06-27 09:00 | XMS_ITS | Encounter Summary ---
Author Organization [facility] Address [address] [place] [address] Phone Care Team Providers Care Proof Load Mechanic Name Role Phone Vaughn Bradshaw MD Primary Care Provider [phone] Claudia Horn APRN Unavailable [phone] Vicenta Raymond DO Unavailable Gus Chowdary MD Unavailable Kasey Williamson DO Primary Care Provider Virginie Reyes RN Unavailable Unavailable Virginie Reyes RN Unavailable Unavailable Virginie Reyes RN Unavailable Unavailable Kelley Lopez ELECTRIC ACCOUNTING MACHINE OPERATOR, SENIOR QUALITY ASSURANCE SPECIALIST Unavailable [phone] Reason for Visit * Reason Comments Medication Refill Encounter Details Date Type Department Care Team (Late st Contact Info) Description 03/27/2022 Refill [facility] #2 [place] [address] Vaughn Bradshaw MD [address] [place] [address] Medication Refill Social History Tobacco Use Types [...] Encounter - Maria T Alejandre RN - 03/27/2022 10:51 AM CST Medication failed the protocol, provider to review and approve the medication order if appropriate. Requested Prescriptions Pending Prescriptions Disp Refills Insulin Aspart FlexPen 100 UNIT/ML Solution Pen-injector [Pharmacy Med Name: INSULIN ASPART FLEXPENINJ, 3ML] 36 mL 3 Sig: ADMINISTER 10 UNITS UNDER THE SKIN THREE TIMES DAILY AFTER MEALS Not Delegated - Insulin Protocol Failed - 03/27/2022 8:08 AM Failed - This refill cannot be delegated Passed - Visit with relevant provider in past 12 months or upcoming 90 days Recent Visits Date Type Provider Dept 02/03/22 Office Visit Vaughn Bradshaw MD [facility] 12/16/21 Office Visit Vaughn Bradshaw MD [facility] 11/04/21 Office Visit Vaughn Bradshaw MD [facility] 07/04/21 Office Visit Vaughn Bradshaw MD [facility] 04/21/21 Telemedicine Monae Jorgensen APRN, SENIOR QUALITY ASSURANCE SPECIALIST [facility] Showing recent visits within past 365 days and meeting all other requirements Future Appointments Date Type Provider Dept 06/04/22 Appointment Vaughn Bradshaw MD [facility] Showing future appointments within next 90 days and meeting all other requirements AD GRINDER TOOL documented in this encounter Plan of Treatment [...] as of this encounter Care Teams Proof Load Mechanic Relationship Specialty Start Date End Date Vaughn Bradshaw MD PCP - General Family Medicine 05/18/18 08/26/23 Kasey Williamson DO 2 [facility] [address] [place] [address] PCP - General Family Medicine 09/14/23 Claudia Horn APRN [address] [place] [address] Advanced Practice Nurse 08/16/18 Vicenta Raymond DO [facility] [address] [place] [address] Consulting Physician Obstetrics & Gynecology 09/25/21 Gus Chowdary MD #2 [facility] [address] [place] [address] Consulting Physician Colon and Rectal Surgery 07/23/22 Virginie Reyes, FAYE [place] Nurse Boat Oar Maker 09/14/23 09/14/23 Virginie Reyes, RN [place] Nurse Boat Oar Maker 11/19/23 11/29/23 Virginie Reyes, RN [place] Nurse Boat Oar Maker 12/07/23 05/15/24 Kelely Lopez APRN, SENIOR QUALITY ASSURANCE SPECIALIST #2 [facility] [address] [place] [address] Nurse Practitioner Advanced Practice Nurse 12/09/23 02/22/24 documented as of this encounter
--- OUTSIDE RECORDS SUMMARY | 2024-06-27 09:00 | XMS_ITS | Encounter Summary ---
Author Organization [facility] Address [address] [place] [address] Phone Care Team Providers Care Archery Instructor Name Role Phone Vaughn Bradshaw MD Primary Care Provider [phone] Claudia Horn APRN Unavailable [phone] Vicenta Raymond DO Unavailable [phone] Gus Chowdary MD Unavailable Kasey Williamson DO Primary Care Provider [phone] Virginie Reyes RN Unavailable Unavailable Virginie Reyes RN Unavailable Unavailable Virginie Reyes RN Unavailable Unavailable Kelley Lopez CIRCUIT JUDGE, LINUX UNIX SYSTEM ADMINISTRATOR Unavailable [phone]- [phone] Reason for Visit * Reason Comments Medication Refill Encounter Details Date Type Department Care Team (Late st Contact Info) Description 06/23/2022 Refill [facility] #[address] [place] [address] Vaughn Bradshaw MD [address] [place] [address] Medication Refill Social History Tobacco Use Types [...] suspected to have Coronavirus/COVID-19? No / Unsure 06/10/2022 1:07 PM CDT documented as of this encounter Miscellaneous Notes * Telephone Encounter - Prerna Mann RN - 06/24/2022 9:52 AM CDT Per nursing clinical judgement, provider to review and approve the medication(s) order(s) if appropriate. Requested Prescriptions Pending Prescriptions Disp Refills nadolol (CORGARD) 20 MG Tablet [Pharmacy Med Name: NADOLOL 20MG TABLETS] 90 Tablet 2 Sig: TAKE 1 TABLET BY MOUTH DAILY Beta-Blockers Protocol Passed - 06/23/2022 8:09 AM Passed - BP on record in the past year Clinician-entered: BP Readings from Last 3 Encounters: 05/27/22 138/80 02/03/22 126/70 01/16/22 123/67 Patient-entered: No data recorded Passed - Visit with relevant provider in past 12 months or upcoming 90 days Recent Visits Date Type Provider Dept 05/27/22 Office Visit Vivian Tucker, CIRCUIT JUDGE, LINUX UNIX SYSTEM ADMINISTRATOR [facility] 02/03/22 Office Visit Vaughn Bradshaw MD [facility] 12/16/21 Office Visit Vaughn Bradshaw MD [facility] 11/04/21 Office Visit Vaughn Bradshaw MD [facility] 07/04/21 Office Visit Vaughn Bradshaw MD [facility] Showing recent visits within past 365 days and meeting all other requirements Future Appointments Date Type Provider Dept 07/02/22 Appointment Vaughn Bradshaw MD [facility] Showing future appointments within next 90 days and meeting all other requirements pramipexole (MIRAPEX) 0.5 MG Tablet [Pharmacy Med Name: PRAMIPEXOLE 0.5MG TABLETS] 45 Tablet 1 Sig: TAKE 1/2 TABLET BY MOUTH EVERY NIGHT Antiparkinson Dopaminergics and COMT Protocol Passed - 06/23/2022 8:09 AM Passed - Visit with relevant provider in the past 9 months or upcoming 90 days Recent Visits Date Type Provider Dept 05/27/22 Office Visit Vivian Tucker, CIRCUIT JUDGE, LINUX UNIX SYSTEM ADMINISTRATOR [facility] 02/03/22 Office Visit Vaughn Bradshaw MD [facility] 12/16/21 Office Visit Vaughn Bradshaw MD [facility] 11/04/21 Office Visit Vaughn Bradshaw MD [facility] Showing recent visits within past 270 days and meeting all other requirements Future Appointments Date Type Provider Dept 07/02/22 Appointment Vaughn Bradshaw MD [facility] Showing future appointments within next 90 days and meeting all other requirements Passed - Blood pressure on record in past 12 months Clinician-entered: BP Readings from Last 3 Encounters: 05/27/22 138/80 02/03/22 126/70 01/16/22 123/67 Patient-entered: No data recorded * Telephone Encounter - Maria T Alejandre RN - 06/23/2022 10:38 AM CDT Images from the original note were not included. Nadolol Dispensed Days Supply Quantity Provider Pharmacy nadolol 20 mg tablet 06/16/2022 90 90 Tablet Vaughn Bradshaw MD [facility] #... NADOLOL 20MG TABLETS 03/16/2022 90 90 Each Vaughn Bradshaw MD [facility] #... Pramipexole Dihydrochloride Dispensed Days Supply Quantity Provider Pharmacy pramipexole 0.5 mg tablet 06/16/2022 90 45 Tablet Vaughn Bradshaw MD [facility] #... PRAMIPEXOLE 0.5MG TABLETS 03/20/2022 90 45 Each Vaughn Bradshaw MD [facility] documented in this encounter Plan of Treatment Not on file documented as of this encounter Visit Diagnoses Diagnosis Essential hypertension Unspecified essential hypertension Restless leg syndrome Restless legs syndrome (RLS) documented in this encounter Additional Health Concerns Infection Onset Date Last Indicated Resolved Time COVID - 19 11/15/2023 11/15/2023 11/15/2023 11:4 7 PM CDT Assessment Noted Time PHQ-9 Depression Total Score: 0 11/05/19 9:00 AM CDT documented as of this encounter Care Teams Archery Instructor Relationship Specialty Start Date End Date Vaughn Bradshaw MD PCP - General Family Medicine 05/18/18 08/26/23 Kasey Williamson DO [address] [facility]. [address] [place] [address] PCP - General Family Medicine 09/14/23 Claudia Horn APRN [address] [place] [address] Advanced Practice Nurse 08/16/18 Vicenta Raymond DO [address] [place] [address] [place] [address] Consulting Physician Obstetrics & Gynecology 09/25/21 Gus Chowdary MD #[address] [facility] [address] [place] [address] Consulting Physician Colon and Rectal Surgery 07/23/22 Virginie Reyes, RN [place] Nurse Ore Dryer 09/14/23 09/14/23 Virginie Reyes RN [place] Nurse Ore Dryer 11/19/23 11/29/23 Virginie Reyes, RN [place] Nurse Ore Dryer 12/07/23 05/15/24 Kelley Lopez APRN, LINUX UNIX SYSTEM ADMINISTRATOR #2 [facility], [address] [place] [address] Nurse Practitioner Advanced Practice Nurse 12/09/23 02/22/24 documented as of this encounter
--- OUTSIDE RECORDS SUMMARY | 2024-06-27 09:00 | XMS_ITS | Encounter Summary ---
Author Organization [facility] Address [address] [place] [address] Phone Care Team Providers Care Dairy Scientist Name Role Phone Vaughn Bradshaw MD Primary Care Provider [phone] Claudia Horn APRN Unavailable Vicenta Raymond DO Unavailable Gus Chowdary MD Unavailable Kasey Williamson DO Primary Care Provider [phone] Virginie Reyes RN Unavailable Unavailable Virginie Reyes RN Unavailable Unavailable Virginie Reyes RN Unavailable Unavailable Kelley Lopez DOPE WORKER, GUTTER HANGER Unavailable [phone] Reason for Visit * Reason Comments Medication Refill Encounter Details Date Type Department Care Team (Late st Contact Info) Description 02/01/2023 Refill [facility] [address] [place] [address] Vaughn Bradshaw MD [address] [place] [address] Medication Refill Social History Tobacco Use Types [...] Coronavirus/COVID-19? No / Unsure 01/28/2023 6:21 AM HIGH SCHOOL MUSIC TEACHER documented as of this encounter Miscellaneous Notes * Telephone Encounter - Maria T Alejandre RN - 02/02/2023 7:17 AM CST Name from pharmacy: SIMVASTATIN 40MG TABLETS Will file in chart as: simvastatin (ZOCOR) 40 MG Tablet The original prescription was reordered on 02/01/2023 by Vaughn Bradshaw MD. SCHOOL MUSIC TEACHER * Telephone Encounter - Maria T Alejandre RN - 02/01/2023 3:48 PM CST duplicate SCHOOL MUSIC TEACHER documented in this encounter Plan of Treatment Not on file documented as of this encounter Visit Diagnoses Not on filedocumented in this encounter Additional Health Concerns Infection Onset Date Last Indicated Resolved Time COVID - 19 11/15/2023 11/15/2023 11/15/2023 11:4 7 PM CDT Assessment Noted Time PHQ-9 Depression Total Score: 0 12/08/19 8:37 AM CDT documented as of this encounter Care Teams Dairy Scientist Relationship Specialty Start Date End Date Vaughn Bradshaw MD PCP - General Family Medicine 05/18/18 08/26/23 Kasey Williamson DO [address] [facility] [address] [place] [address] PCP - General Family Medicine 09/14/23 Claudia Horn APRN [address] [place] [address] Advanced Practice Nurse 08/16/18 Vicenta Raymond DO ONE [address] [address] Consulting Physician Obstetrics & Gynecology 09/25/21 Gus Chowdary MD #[address] [facility] [address] [place] [address] Consulting Physician Colon and Rectal Surgery 07/23/22 Virginie Reyes, RN [place] Nurse Capacity Manager 09/14/23 09/14/23 Virginie Reyes, RN [place] Nurse Capacity Manager 11/19/23 11/29/23 Virginie Reyes, RN [place] Nurse Capacity Manager 12/07/23 05/15/24 Kelley Lopez APRN, GUTTER HANGER #2 [facility], [address] [place] [address] Nurse Practitioner Advanced Practice Nurse 12/09/23 02/22/24 documented as of this encounter
--- OUTSIDE RECORDS SUMMARY | 2024-06-27 09:00 | XMS_ITS | Encounter Summary ---
Author Organization [facility] Address [address] [place] [address] Phone Care Team Providers Care Strickler Attendant Name Role Phone Vaughn Bradshaw MD Primary Care Provider [phone] Claudia Horn APRN Unavailable [phone] Vicenta Raymond DO Unavailable Gus Chowdary MD Unavailable Kasey Williamson DO Primary Care Provider [phone] Virginie Reyes RN Unavailable Unavailable Virginie Reyes RN Unavailable Unavailable Virginie Reyes RN Unavailable Unavailable Kelley Lopez STAMPER BLOCKER, FIELD REPRESENTATIVE/HEALTH EDUCATION Unavailable [phone] Reason for Visit * Reason Comments Medication Refill Encounter Details Date Type Department Care Team (Late st Contact Info) Description 04/12/2022 Refill [facility] #2 [place] [address] Vaughn Bradshaw MD #[address] [place] [address] Medication Refill Social History Tobacco Use Types [...] Telephone Encounter - Prerna Mann RN - 04/13/2022 11:14 AM THREAD CUTTER TENDER Medication failed the protocol, provider to review and approve the medication order if appropriate. Requested Prescriptions Pending Prescriptions Disp Refills Rizatriptan Benzoate 10 MG Tablet [Pharmacy Med Name: RIZATRIPTAN 10MG TABLETS] 9 Tablet 5 Sig: TAKE 1 TABLET BY MOUTH 1 TIME. MAY REPEAT AT 2 HOUR INTERVALS. DO NOT EXCEED 3 IN 24 HOURS Not Delegated - Serotonin Agonists (Oral and Nasal) Protocol Failed - 04/12/2022 2:47 PM Failed - This refill cannot be [...] [place] 04/21/21 Telemedicine Monae Jorgensen APRN, FIGU[facility]OA [facility] [place] 02/24/21 Office Visit Vaughn Bradshaw MD [facility] 01/20/21 Office Visit Vaughn Bradshaw MD [facility] 12/09/20 Office Visit Vaughn Bradshaw MD [facility] 11/28/20 Telemedicine Vaughn Bradshaw MD [facility] 10/03/20 Office Visit Vaughn Bradshaw MD [facility] Showing recent visits within past 730 days and meeting all other requirements Future Appointments Date Type Provider Dept 06/04/22 Appointment Vaughn Bradshaw MD [facility] Showing future appointments within next 90 days and meeting all other requirements Passed - No documented Systolic BP > 200 within past 3 months Passed - Number of active Serotonergic medications less than 3 AD CUTTER TENDER documented in this encounter Plan of Treatment [...] documented as of this encounter Care Teams Strickler Attendant Relationship Specialty Start Date End Date Vaughn Bradshaw MD PCP - General Family Medicine 05/18/18 08/26/23 Kasey Williamson DO [address] [place] [address] PCP - General Family Medicine 09/14/23 Claudia Horn, FRANCES [address] [place] [address] Advanced Practice Nurse 08/16/18 Vicenta Raymond DO [address] [place] [address] Consulting Physician Obstetrics & Gynecology 09/25/21 Gus Chowdary MD #[address] [facility] [address] [place] [address] Consulting Physician Colon and Rectal Surgery 07/23/22 Vriginie Reyes, RN [place] Nurse Global Marketing Operations Manager 09/14/23 09/14/23 Virginie Reyes, RN [place] Nurse Global Marketing Operations Manager 11/19/23 11/29/23 Virginie Reyes, RN [place] Nurse Global Marketing Operations Manager 12/07/23 05/15/24 Kelley Lopez, STAMPER BLOCKER, FIELD REPRESENTATIVE/HEALTH EDUCATION #[address] [facility], [address] [place] [address] Nurse Practitioner Advanced Practice Nurse 12/09/23 02/22/24 documented as of this encounter
--- OUTSIDE RECORDS SUMMARY | 2024-06-27 09:00 | XMS_ITS | Encounter Summary ---
Author Organization [facility] Address [address] [place] [address] Phone Care Team Providers Care Vpk Teacher Name Role Phone Vaughn Bradshaw MD Primary Care Provider [phone] Claudia Horn APRN Unavailable Vicenta Raymond DO Unavailable [phone] Gus Chowdary MD Unavailable Kasey Williamson DO Primary Care Provider [phone] Virginie Reyes RN Unavailable Unavailable Virginie Reyes RN Unavailable Unavailable Virginie Reyes RN Unavailable Unavailable Kelley Lopez ORDNANCE ARTIFICER, OCEANOLOGY TEACHER Unavailable [phone] Reason for Visit * Reason Comments Medication Refill Encounter Details Date Type Department Care Team (Late st Contact Info) Description 05/07/2022 Refill [facility] #[address] [place] [address] Vaughn Bradshaw MD #[address] [place] [address] Medication Refill Social History Tobacco Use Types [...] Encounter - Maria T Alejandre RN - 05/11/2022 10:28 AM CST Name from pharmacy: OZEMPIC 1MG PER DOSE (1X4MG PEN) Will file in chart as: Ozempic, 1 MG/DOSE, 4 MG/3ML Solution Pen-injector The original prescription was reordered on 05/11/2022 by Vaughn Bradshaw MD. MIXER HELPER * Telephone Encounter - Maria T Alejandre RN - 05/08/2022 7:52 AM CST duplicate MIXER HELPER * Telephone Encounter - Maria T Alejandre RN - 05/08/2022 7:49 AM CST duplicate MIXER HELPER documented in this encounter Plan of Treatment [...] documented as of this encounter Care Teams Vpk Teacher Relationship Specialty Start Date End Date Vaughn Bradshaw MD PCP - General Family Medicine 05/18/18 08/26/23 Kasey Williamson DO 2 [facility] [address] [place] [address] PCP - General Family Medicine 09/14/23 Claudia Horn, ORDNANCE ARTIFICER [address] [place] [address] Advanced Practice Nurse 08/16/18 Vicenta Raymond DO [address] [facility] [address] [place] [address] Consulting Physician Obstetrics & Gynecology 09/25/21 Gus Chowdary MD #[address] [facility] [address] [place] [address] Consulting Physician Colon and Rectal Surgery 07/23/22 Virginie Reyes, RN [place] Nurse Director Content Marketing 09/14/23 09/14/23 Virginie Reyes, RN [place] Nurse Director Content Marketing 11/19/23 11/29/23 Virginie Reyes, RN [place] Nurse Director Content Marketing 12/07/23 05/15/24 Kelley Lopez, ORDNANCE ARTIFICER, OCEANOLOGY TEACHER #[address] [facility], [address] [place] [address] Nurse Practitioner Advanced Practice Nurse 12/09/23 02/22/24 documented as of this encounter
--- OUTSIDE RECORDS SUMMARY | 2024-06-27 09:00 | XMS_ITS | Encounter Summary ---
Author Organization [facility] Address [address] [place] [address] Phone Care Team Providers Care Alignment Mechanic Name Role Phone Vaughn Bradshaw MD Primary Care Provider [phone] Claudia Horn APRN Unavailable [phone] Vicenta Raymond DO Unavailable Gus Chowdary MD Unavailable Kasey Williamson DO Primary Care Provider [phone] Virginie Reyes RN Unavailable Unavailable Virginie Reyes RN Unavailable Unavailable Virginie Reyes RN Unavailable Unavailable Kelley Lopez RESEARCH AFFILIATE, LINEN ROOM WORKER Unavailable [phone]- [phone] Reason for Visit * Reason Comments Medication Refill Encounter Details Date Type Department Care Team (Late st Contact Info) Description 11/29/2020 Refill [facility] [address] [place] [address] Vaughn Bradshaw MD [address]1 [place] [address] Medication Refill Social History Tobacco Use Types [...] have Coronavirus / COVID-19? No / Unsure 11/28/2020 2:29 PM CDT documented as of this encounter Miscellaneous Notes * Telephone Encounter - Maria T Alejandre RN - 11/29/2020 3:35 PM CDT Disp Refills Start End busPIRone HCl 7.5 MG Tablet 60 Tablet 2 11/28/2020 Sig - Route: Take 1 Tablet by mouth 2 times daily. - Oral Class: Normal Please resend Medication failed the protocol, provider to review and approve the medication order if appropriate. Requested Prescriptions Pending Prescriptions Disp Refills busPIRone HCl 7.5 MG Tablet [Pharmacy Med Name: BUSPIRONE 7.5MG TABLETS] 60 Tablet 2 Sig: TAKE 1 TABLET(7.5 MG) BY MOUTH TWICE DAILY Buspirone (6 Month Refill Only) Protocol Failed - 11/29/2020 12:52 PM Failed - Patient has established therapy with Buspirone for at least 6 months Passed - Visit with relevant provider in past 6 months or upcoming 90 days Recent Visits Date Type Provider Dept 11/28/20 Appointment Vaughn Bradshaw MD [facility] 10/03/20 Office [...] with a depression or anxiety visit diagnosis documented in this encounter Plan of Treatment Not on file documented as of this encounter Visit Diagnoses Diagnosis Anxiety and depression Dysthymic disorder documented in this encounter Additional Health Concerns Infection Onset Date Last Indicated Resolved Time COVID - 19 03/31/2021 03/31/2021 03/31/2021 9:59 PM DESIGN DRAFTSMAN COVID - 19 Confirmed 03/31/2021 03/31/2021 022 12:16 AM DESIGN DRAFTSMAN COVID - 19 01/14/2022 01/14/2022 01/15/2022 7:59 AM CDT Respiratory Rule-Out 01/14/2022 01/14/2022 022 8:08 AM CDT COVID - 19 11/15/2023 11/15/2023 11/15/2023 11:4 7 PM CDT Assessment Noted Time PHQ-9 Depression Total Score: 0 10/04/19 21 9:00 AM CDT documented as of this encounter Care Teams Alignment Mechanic Relationship Specialty Start Date End Date Vaughn Bradshaw MD PCP - General Family Medicine 05/18/18 08/26/23 Kasey Williamson DO 2 [facility] [address] [place] [address] PCP - General Family Medicine 09/14/23 Claudia Horn, RESEARCH AFFILIATE [address] [place] [address] Advanced Practice Nurse 08/16/18 Vicenta Raymond DO [address] [place] [address] Consulting Physician Obstetrics & Gynecology 09/25/21 Gus Chowdary MD #[address] [facility] [address] [place] [address] Consulting Physician Colon and Rectal Surgery 07/23/22 Virginie Reyes, RN [place] Nurse Principal Architectural Firm 09/14/23 09/14/23 Virginie Reyes, RN [place] Nurse Principal Architectural Firm 11/19/23 11/29/23 Virginie Reyes, RN [place] Nurse Principal Architectural Firm 12/07/23 05/15/24 Kelley Lopez, RESEARCH AFFILIATE, LINEN ROOM WORKER [address] [facility] [place] [address] Nurse Practitioner Advanced Practice Nurse 12/09/23 02/22/24 documented as of this encounter
--- OUTSIDE RECORDS SUMMARY | 2024-06-27 09:00 | XMS_ITS | Encounter Summary ---
Author Organization [facility] Address [address] [place] [address] Phone Care Team Providers Care Housekeeping Worker Name Role Phone Vaughn Bradshaw MD Primary Care Provider [phone] Claudia Horn APRN Unavailable Vicenta Raymond DO Unavailable [phone] Gus Chowdary MD Unavailable Kasey Williamson DO Primary Care Provider [phone] Virginie Reyes RN Unavailable Unavailable Virginie Reyes RN Unavailable Unavailable Virginie Reyes RN Unavailable Unavailable Kelley Lopez DRAWER IN PLAIN LOOM, DIRECTOR PRIVATE Unavailable [phone]- [phone] Reason for Visit * Reason Comments Medication Refill Encounter Details Date Type Department Care Team (Late st Contact Info) Description 05/05/2022 Refill [facility] [address] [place] [address] Vaughn Bradshaw MD [address]1 [place] [address] Medication Refill Social History Tobacco Use Types [...] Encounter - Maria T Alejandre RN - 05/05/2022 9:36 AM CST Medication failed the protocol, provider to review and approve the medication order if appropriate. Requested Prescriptions Pending Prescriptions Disp Refills Toujeo Max SoloStar 300 UNIT/ML Solution Pen-injector [Pharmacy Med Name: TOUJEO MAX SOLOSTAR 300U/ML PEN 3ML] 45 mL 0 Sig: INJECT 75 UNITS UNDER THE SKIN DAILY IN THE MORNING Not Delegated - Insulin Protocol Failed - 05/05/2022 3:55 AM Failed - This refill cannot be delegated Passed - Visit with relevant provider in past 12 months or upcoming 90 days Recent Visits Date Type Provider Dept 02/03/22 Office Visit Vaughn Bradshaw MD [facility] 12/16/21 Office Visit aVughn Bradshaw MD [facility] 11/04/21 Office Visit Vaughn Bradshaw MD [facility] 07/04/21 Office Visit Vaughn Bradshaw MD [facility] Showing recent visits within past 365 days and meeting all other requirements Future Appointments Date Type Provider Dept 06/04/22 Appointment Vaughn Bradshaw MD [facility] Showing future appointments within next 90 days and meeting all other requirements ER ODDS documented in this encounter Plan of Treatment [...] documented as of this encounter Care Teams Housekeeping Worker Relationship Specialty Start Date End Date Vaughn Bradshaw MD PCP - General Family Medicine 05/18/18 08/26/23 Kasey Williamson DO 2 [facility] [facility] [address] [place] [address] PCP - General Family Medicine 09/14/23 Claudia Horn APRN [address] [place] [address] Advanced Practice Nurse 08/16/18 Vicenta Raymond DO [address] [address] Consulting Physician Obstetrics & Gynecology 09/25/21 Gus Chowdary MD #2 [facility] [address] [place] [address] Consulting Physician Colon and Rectal Surgery 07/23/22 Virginie Reyes, RN [place] Nurse Campaign Marketing Specialist 09/14/23 09/14/23 Virginie Reyes, RN [place] Nurse Campaign Marketing Specialist 11/19/23 11/29/23 Virginie Reyes, RN [place] Nurse Campaign Marketing Specialist 12/07/23 05/15/24 Kelley Lopez APRN, DIRECTOR PRIVATE #2 [facility] [address] [place] [address] Nurse Practitioner Advanced Practice Nurse 12/09/23 02/22/24 documented as of this encounter
--- OUTSIDE RECORDS SUMMARY | 2024-06-27 09:00 | XMS_ITS | Clinical Summary ---
Author Organization [facility] Address [address] [place] [address] Care Team Providers Care Plan Manager Name Role Phone Terence Dela Cruz MD Primary Care Provider Unava ilable Social History Tobacco Use Types Packs/Day Years Used Date Smoking Tobacco: Never Assessed Comments Unknown Sex and Gender Information Value Date Recorded Sex Assigned at Not on file Legal Sex Female 4:26 PM CDT Gender Identity Not on file Sexual Orientation Not on file Plan of Treatment Health Maintenance Due Date Last Done Comments Cervical Cancer Screening Pa p Smear (Age 30 to 64) Every 3 Years 1963 Colorectal Cancer Screening Colonoscopy (10 Years) 1963 Annual Physical 10/01/1966 Hepatitis C 10/01/1981 DTaP, Tdap and Td Vaccines ( 1 - Tdap) 10/01/1982 Cervical Cancer Screening Pa p with HPV Testing (Age 30 to 64) Every 5 Years 10/01/1993 Cervical Cancer Screening with HPV 10/01/1993 Mammogram Screening 2003 Zoster Vaccines (1 of 2) 10/01/2013 COVID-19 Vaccine (2023-2 5 season) 2023 RSV Immunization or 60+ Years (1 - 1-dose 75+ series) 10/01/2038 Meningococcal B Vaccine Aged Out No l onger eligible based on patient's age to complete this topic Meningococcal Vaccine Aged Out No cesar brendon eligible based on patient's age to complete this topic Pneumococcal Vaccine: Pediat rics (0 to 5 Years) and At-Risk Patients (6 to 64 Years) Aged Out No longer eligible b ased on patient's age to complete this topic RSV Immunizations Under 20 Months Aged Out No longer eligible based on patient's age to complete this topic Care Teams Plan Manager Relationship Specialty Start Date End Date Terence Dela Cruz MD PCP - General 12/15/13
--- OUTSIDE RECORDS SUMMARY | 2024-06-27 09:00 | XMS_ITS | Encounter Summary ---
Author Organization [facility] Address [address] [place] [address] Care Team Providers Care Consulting Property Manager Name Role Phone Terence Dela Cruz MD Primary Care Provider Unava ilable Encounter Details Date Type Department Care Team (Late st Contact Info) Description 01/28/2018 Abstract [facility] CONVERSION [address] [place] [address] , Generic Conversion, Social History Tobacco Use Types Packs/Day Years [...] on filedocumented in this encounter Care Teams Consulting Property Manager Relationship Specialty Start Date End Date Terence Dela Cruz MD PCP - General 12/15/13 documented as of this encounter
--- OUTSIDE RECORDS SUMMARY | 2024-06-27 09:00 | XMS_ITS | Encounter Summary ---
Author Organization [facility] Address [address] [place] [address] Phone Care Team Providers Care Forming Yardage Control Operator Name Role Phone Vaughn Bradshaw MD Primary Care Provider [phone] Claudia Horn APRN Unavailable Vicenta Raymond DO Unavailable Gus Chowdary MD Unavailable Kasey Williamson DO Primary Care Provider [phone] Virginie Reyes RN Unavailable Unavailable Virginie Reyes RN Unavailable Unavailable Virginie Reyes RN Unavailable Unavailable Kelley Lopez TAKER OFF HEMP FIBER, NURSE CLINICIAN Unavailable [phone]- [phone] Reason for Visit * Reason Comments Medication Refill Encounter Details Date Type Department Care Team (Late st Contact Info) Description 02/17/2023 Refill [facility] #2 [place] [address] Vaughn Bradshaw MD #[address] [place] [address] Medication Refill Social History Tobacco Use Types [...] Coronavirus/COVID-19? No / Unsure 01/28/2023 6:21 AM BARREL POLISHER INSIDE documented as of this encounter Miscellaneous Notes * Telephone Encounter - Maria T Alejandre RN - 02/18/2023 10:43 AM CST Continue current dose? Per nursing clinical judgement, provider to review and approve the medication(s) order(s) if appropriate. Requested Prescriptions Pending Prescriptions Disp Refills Ozempic, 1 MG/DOSE, 4 MG/3ML Solution Pen-injector [Pharmacy Med Name: OZEMPIC 1MG PER DOSE (1X4MG PEN)] 3 mL 1 Sig: INJECT 2 MG UNDER THE SKIN ONCE A WEEK GLP-1 Agonists Protocol Passed - 02/17/2023 11:50 PM Passed - Lipid panel result on file [...] Range Status 12/07/2022 59 (L) >=60 Final EL POLISHER INSIDE documented in this encounter Plan of Treatment [...] documented as of this encounter Care Teams Forming Yardage Control Operator Relationship Specialty Start Date End Date Vaughn Bradshaw MD PCP - General Family Medicine 05/18/18 08/26/23 Kasey Williamson DO 2 [facility] [address] [address] PCP - General Family Medicine 09/14/23 Claudia Horn APRN [address] [place] [address] Advanced Practice Nurse 08/16/18 Vicenta Raymond DO [address] [place] [address] Consulting Physician Obstetrics & Gynecology 09/25/21 Gus Chowdary MD #[address] [facility] [address] [place] [address] Consulting Physician Colon and Rectal Surgery 07/23/22 Virginie Reyes, RN [place] Nurse Radio Machinist 09/14/23 09/14/23 Virginie Reyes, RN [place] Nurse Radio Machinist 11/19/23 11/29/23 Virginie Reyes, RN [place] Nurse Radio Machinist 12/07/23 05/15/24 Kelley Lopez, TAKER OFF HEMP FIBER, NURSE CLINICIAN #2 [facility] [address] [place] [address] Nurse Practitioner Advanced Practice Nurse 12/09/23 02/22/24 documented as of this encounter
--- OUTSIDE RECORDS SUMMARY | 2024-06-27 09:00 | XMS_ITS | Encounter Summary ---
Author Organization [facility] Address [address] [place] [address] Phone Care Team Providers Care Meter And Service Line Inspector Name Role Phone Vaughn Bradshaw MD Primary Care Provider [phone] Claudia Horn APRN Unavailable Vicenta Raymond DO Unavailable Gus Chowdary MD Unavailable Kasey Williamson DO Primary Care Provider [phone] Virginie Reyes RN Unavailable Unavailable Virginie Reyes RN Unavailable Unavailable Virginie Reyes RN Unavailable Unavailable Kelley Lopez COSTUME DRAPER, MUSICAL INSTRUMENT SUPERVISOR Unavailable [phone] Reason for Visit * Reason Comments Medication Refill Encounter Details Date Type Department Care Team (Late st Contact Info) Description 07/04/2022 Refill [facility] #2 [place] [address] Vaughn Bradshaw MD #[address] [place] [address] Medication Refill Social History Tobacco Use Types [...] suspected to have Coronavirus/COVID-19? No / Unsure 07/05/2022 9:24 AM CDT documented as of this encounter Miscellaneous Notes * Telephone Encounter - Prerna Mann RN - 07/06/2022 8:54 AM CDT Refill requested too soon. documented in this encounter Plan of Treatment [...] as of this encounter Care Teams Meter And Service Line Inspector Relationship Specialty Start Date End Date Vaughn Bradshaw MD PCP - General Family Medicine 05/18/18 08/26/23 Kasey Williamson DO [address] [address] PCP - General Family Medicine 09/14/23 Claudia Horn, COSTUME DRAPER [address] [place] [address] Advanced Practice Nurse 08/16/18 Vicenta Raymond DO [address] [facility] [address] [place] [address] Consulting Physician Obstetrics & Gynecology 09/25/21 Gus Chowdary MD #[address] [facility] [address] [place] [address] Consulting Physician Colon and Rectal Surgery 07/23/22 Virginie Reyes, RN [place] Nurse Erp Analyst 09/14/23 09/14/23 Virginie Reyes, RN [place] Nurse Erp Analyst 11/19/23 11/29/23 Virginie Reyes, RN [place] Nurse Erp Analyst 12/07/23 05/15/24 Kelley Lopez, COSTUME DRAPER, MUSICAL INSTRUMENT SUPERVISOR #[address] [facility] [address] [place] [address] Nurse Practitioner Advanced Practice Nurse 12/09/23 02/22/24 documented as of this encounter
--- OUTSIDE RECORDS SUMMARY | 2024-06-27 09:00 | XMS_ITS | Encounter Summary ---
Author Organization [facility] Address [address] [place] [address] Phone Care Team Providers Care Floor Helper Name Role Phone Vaughn Bradshaw MD Primary Care Provider Claudia Horn APRN Unavailable Vicenta Raymond DO Unavailable Gus Chowdary MD Unavailable Kasey Williamson DO Primary Care Provider [phone] Virginie Reyes RN Unavailable Unavailable Virginie Reyes RN Unavailable Unavailable Virginie Reyes RN Unavailable Unavailable Kelley Lopez COMMUNITY WORKER, LITHARGE SUPERVISOR Unavailable [phone]- [phone] Reason for Visit * Reason Comments Medication Refill Encounter Details Date Type Department Care Team (Late st Contact Info) Description 02/05/2021 Refill [facility] #2 [place] [address] Vaughn Bradshaw MD #[address] [place] [address] Medication Refill Social History Tobacco Use Types [...] have Coronavirus / COVID-19? No / Unsure 02/06/2021 9:38 AM CEREAL MILLER documented as of this encounter Miscellaneous Notes * Telephone Encounter - Maria T Alejandre RN - 02/05/2021 9:24 AM CST Disp Refills Start End loratadine (CLARITIN) 10 MG Tablet 90 Tablet 3 01/20/2021 Sig - Route: Take 1 Tablet by mouth daily. - Oral Sent to pharmacy as: Loratadine 10 MG Oral Tablet (CLARITIN) Class: E Prescribe E-Prescribing Status: Receipt confirmed by pharmacy (01/20/2021 ??1:35 PM CDT) Order Questions ?? loratadine (CLARITIN) 10 MG Tablet [[id number]] 34 Status: Active Ordering user: Vaughn Bradshaw MD 01/20/211334 Authorized by: Vaughn Bradshaw MD Frequency: Daily 01/20/21 - Until Discontinued Released by: Vaughn Bradshaw MD 01/20/211334 Diagnoses Seasonal allergies [J30.2] Associated Diagnoses Seasonal allergies [id number] [place] [address] [address] [facility] [address] MILLER documented in this encounter Plan of Treatment Not on file documented as of this encounter Visit Diagnoses Diagnosis Seasonal allergies Allergic rhinitis, cause unspecified documented in this encounter Additional Health Concerns Infection Onset Date Last Indicated Resolved Time COVID - 19 03/31/2021 03/31/2021 03/31/2021 9:59 PM CEREAL MILLER COVID - 19 Confirmed 03/31/2021 03/31/2021 022 12:16 AM CEREAL MILLER COVID - 19 01/14/2022 01/14/2022 01/15/2022 7:59 AM CDT Respiratory Rule-Out 01/14/2022 01/14/2022 022 8:08 AM CDT COVID - 19 11/15/2023 11/15/2023 11/15/2023 11:4 7 PM CDT Assessment Noted Time PHQ-9 Depression Total Score: 0 10/04/19 21 9:00 AM CDT documented as of this encounter Care Teams Floor Helper Relationship Specialty Start Date End Date Vaughn Bradshaw MD PCP - General Family Medicine 05/18/18 08/26/23 Kasey Williamson DO [address] [place] [address] PCP - General Family Medicine 09/14/[address] Claudia Hron APRN [address] [place] [address] Advanced Practice Nurse 08/16/18 Vicenta Raymond DO [address] [place] [address] Consulting Physician Obstetrics & Gynecology 09/25/21 Gus Chowdary MD #[address] [facility] [address] [facility] [address] [place] [address] Consulting Physician Colon and Rectal Surgery 07/23/22 Virginie Reyes, RN [place] Nurse Gravity Manager 09/14/23 09/14/23 Virginie Reyes, RN [place] Nurse Gravity Manager 11/19/23 11/29/23 Virginie Reyes, RN [place] Nurse Gravity Manager 12/07/23 05/15/24 Kelley Lopez, COMMUNITY WORKER, LITHARGE SUPERVISOR #2 [facility], [address] [place] [address] Nurse Practitioner Advanced Practice Nurse 12/09/23 02/22/24 documented as of this encounter
--- OUTSIDE RECORDS SUMMARY | 2024-06-27 09:00 | XMS_ITS | Encounter Summary ---
Author Organization [facility] Address [address] [place] [address] Phone Care Team Providers Care Stock Parts Inspector Name Role Phone Vaughn Bradshaw MD Primary Care Provider [phone] Claudia Horn GM Unavailable [phone] Vicenta Raymond DO Unavailable [phone] Gus Chowdary MD Unavailable Kasey Williamson DO Primary Care Provider [phone] Virginie Reyes RN Unavailable Unavailable Virginie Reyes RN Unavailable Unavailable Virginie Reyes RN Unavailable Unavailable Kelley Lopez GM, ATTORNEY GENERAL Unavailable [phone] Encounter Details Date Type Department Care Team (Latest Contact Info) Description 01/21/2023 [facility] [address] [place] [address] Maria Teresa Myers, RN [place] Bicipital tendonitis of left shoulder (Primary Dx) Social History Tobacco Use Types Packs/Day Years [...] suspected to have Coronavirus/COVID-19? No / Unsure 01/19/2023 12:40 PM CDT documented as of this encounter Plan of Treatment Not on file documented as of this encounter Visit Diagnoses Diagnosis Bicipital tendonitis of left shoulder- Primary documented in this encounter Additional Health Concerns Infection Onset Date Last Indicated Resolved Time COVID - 19 11/15/2023 11/15/2023 11/15/2023 11:4 7 PM CDT Assessment Noted Time PHQ-9 Depression Total Score: 0 12/08/19 23 8:37 AM CDT documented as of this encounter Care Teams Stock Parts Inspector Relationship Specialty Start Date End Date Vaughn Bradshaw MD PCP - General Family Medicine 05/18/18 08/26/23 Kasey Williamson DO [address] [place] [address] PCP - General Family Medicine 09/14/23 Claudia Horn APRN [address] [place] [address] Advanced Practice Nurse 08/16/18 Vicenta Raymond DO [address] [place] [address] Consulting Physician Obstetrics & Gynecology 09/25/21 Gus Chowdary MD #[address] [facility] [address] [place] [address] Consulting Physician Colon and Rectal Surgery 07/23/22 Virginie Reyes, RN [place] Nurse Solid Waste Division Supervisor 09/14/23 09/14/23 Virginie Reyes, RN [place] Nurse Solid Waste Division Supervisor 11/19/23 11/29/23 Virginie Reyes, RN [place] Nurse Solid Waste Division Supervisor 12/07/23 05/15/24 Kelley Lopez, GM, ATTORNEY GENERAL [address] [facility] [place] [address] Nurse Practitioner Advanced Practice Nurse 12/09/23 02/22/24 documented as of this encounter
--- OUTSIDE RECORDS SUMMARY | 2024-06-27 09:00 | XMS_ITS | Encounter Summary ---
Author Organization [facility] Address [address] [place] [address] Phone Care Team Providers Care Supervisor Car Installations Name Role Phone Vaughn Bradshaw MD Primary Care Provider [phone] Claudia Horn APRN Unavailable [phone] Vicenta Raymond DO Unavailable Gus Chowdary MD Unavailable Ksaey Williamson DO Primary Care Provider [phone] Virginie Reyes RN Unavailable Unavailable Virginie Reyes RN Unavailable Unavailable Virginie Reyes RN Unavailable Unavailable Kelley Lopez WEAVER HAND LOOM, INJECTION MOLDING MACHINE OPERATOR Unavailable [phone]- [phone] Reason for Visit * Reason Comments Medication Refill Encounter Details Date Type Department Care Team (Late st Contact Info) Description 01/13/2022 Refill [facility] #2 [place] [address] Vaughn Bradshaw MD #1 [place] [address] Medication Refill Social History Tobacco Use Types [...] Encounter - Maria T Alejandre RN - 01/13/2022 9:38 AM CDT Medication failed the protocol, provider to review and approve the medication order if appropriate. Requested Prescriptions Pending Prescriptions Disp Refills montelukast (SINGULAIR) 10 MG Tablet [Pharmacy Med Name: MONTELUKAST 10MG TABLETS] 90 Tablet 3 Sig: Take 1 Tablet by mouth every evening. Leukotriene Inhibitors Protocol Passed - 01/13/2022 3:55 AM Passed - Visit with relevant provider in past 12 months or upcoming 90 days Recent Visits Date Type Provider Dept 12/16/21 Office Visit Vaughn Bradshaw MD [facility] 11/04/21 Office Visit Vaughn Bradshaw MD [facility] 07/04/21 Office Visit Vaughn Bradshaw MD [facility] 04/21/21 Telemedicine Monae Jorgensen APRN, [facility] 02/24/21 Office Visit Vaughn Bradshaw MD [facility] 01/20/21 Office Visit Vaughn Bradshaw MD [facility] Showing recent visits within past 365 days and meeting all other requirements Future Appointments Date Type Provider Dept 01/26/22 Appointment Vaughn Bradshaw MD [facility] Showing future appointments within next 90 days and meeting all other requirements levothyroxine (SYNTHROID) 50 MCG Tablet [Pharmacy Med Name: LEVOTHYROXINE 0.05MG (50MCG) TAB] 90 Tablet 3 Sig: TAKE 1/2 TABLET BY MOUTH DAILY Thyroid Hormones Protocol Failed - 01/13/2022 3:55 AM Failed - Normal TSH in past 12 months TSH Date Value Ref Range Status 01/20/2021 4.220 (H) 0.270 - 4.200 mIU/L Final Passed - Visit with relevant provider in past 12 months or upcoming 90 days Recent Visits Date Type Provider Dept 12/16/21 Office Visit aVughn Bradshaw MD [facility] 11/04/21 Office Visit Vaughn Bradshaw MD [facility] 07/04/21 Office Visit Vaughn Bradshaw MD [facility] 04/21/21 Telemedicine Monae Jorgensen APRN, CNP [facility] 02/24/21 Office Visit Vaughn Bradshaw MD [facility] 01/20/21 Office Visit Vaughn Bradshaw MD [facility] Showing recent visits within past 365 days and meeting all other requirements Future Appointments Date Type Provider Dept 01/26/22 Appointment Vaughn Bradshaw MD [facility] Showing future appointments within next 90 days and meeting all other requirements documented in this encounter Plan of Treatment Not on file documented as of this encounter Visit Diagnoses Diagnosis Acquired hypothyroidism Unspecified hypothyroidism documented in this encounter Additional Health Concerns Infection Onset Date Last Indicated Resolved Time COVID - 19 01/14/2022 01/14/2022 01/15/2022 7:59 AM CDT Respiratory Rule-Out 01/14/2022 01/14/2022 022 8:08 AM CDT COVID - 19 11/15/2023 11/15/2023 11/15/2023 11:4 7 PM CDT Assessment Noted Time PHQ-9 Depression Total Score: 0 11/05/19 9:00 AM CDT documented as of this encounter Care Teams Supervisor Car Installations Relationship Specialty Start Date End Date Vaughn Bradshaw MD PCP - General Family Medicine 05/18/18 08/26/23 Kasey Williamson DO 2 [facility] [address] [place] [address] PCP - General Family Medicine 09/14/23 Claudia Horn, FRANCES [address] [place] [address] Advanced Practice Nurse 08/16/18 Vicenta Raymond DO ONE PROFESSIONAL [address] [address] Consulting Physician Obstetrics & Gynecology 09/25/21 Gus Chowdary MD #[address] [facility] [address] [facility] [address] [place] [address] Consulting Physician Colon and Rectal Surgery 07/23/22 Virginie Reyes, RN [place] Nurse Escort Blind 09/14/23 09/14/23 Virginie Reyes, RN [place] Nurse Escort Blind 11/19/23 11/29/23 Virginie Reyes, RN [place] Nurse Escort Blind 12/07/23 05/15/24 Kelley Lopez, WEAVER HAND LOOM, INJECTION MOLDING MACHINE OPERATOR [address] [place] [address] Nurse Practitioner Advanced Practice Nurse 12/09/23 02/22/24 documented as of this encounter
--- OUTSIDE RECORDS SUMMARY | 2024-06-27 09:00 | XMS_ITS | Encounter Summary ---
Author Organization [facility] Address [address] [place] [address] Phone Care Team Providers Care Clinical Data Manager Name Role Phone Vaughn Bradshaw MD Primary Care Provider [phone] Claudia Horn APRN Unavailable Vicenta Raymond DO Unavailable Gus Chowdary MD Unavailable Kasey Williamson DO Primary Care Provider [phone] Virginie Reyes RN Unavailable Unavailable Virginie Reyes RN Unavailable Unavailable Virginie Reyes RN Unavailable Unavailable Kelley Lopez TRUSS ASSEMBLER, TAFFY PULLER Unavailable [phone]- [phone] Reason for Visit * Reason Comments Medication Refill Encounter Details Date Type Department Care Team (Late st Contact Info) Description 02/04/2022 Refill [facility] #2 [place] [address] Vaughn Bradshaw MD [address] [place] [address] Medication Refill Social History Tobacco Use Types [...] suspected to have Coronavirus/COVID-19? No / Unsure 02/02/2022 11:51 AM MILK BOTTLER documented as of this encounter Miscellaneous Notes * Telephone Encounter - Maria T Alejandre RN - 02/04/2022 12:24 PM CST Medication failed the protocol, provider to review and approve the medication order if appropriate. Requested Prescriptions Pending Prescriptions Disp Refills simvastatin (ZOCOR) 40 MG Tablet [Pharmacy Med Name: SIMVASTATIN 40MG TABLETS] 90 Tablet 1 Sig: TAKE 1 TABLET BY MOUTH DAILY Hmg CoA Reductase Inhibitors Protocol Failed - 02/04/2022 11:11 AM Failed - Lipid panel in past 12 months [...] Dept 02/03/22 Office Visit Vaughn Bradshaw MD [facility] 12/16/21 Office Visit Vaughn Bradshaw MD [facility] 11/04/21 Office Visit Vaughn Bradshaw MD [facility] 07/04/21 Office Visit Vaughn Bradshaw MD [facility] 04/21/21 Telemedicine Monae Jorgensen APRN, FIGUEROA [facility] [place] 02/24/21 Office Visit Vaughn Bradshaw MD [facility] [place] Showing recent visits within past 365 days and meeting all other requirements Future Appointments No visits were found meeting these conditions. Showing future appointments within next 90 days and meeting all other requirements BOTTLER documented in this encounter Plan of Treatment Not on file documented as of this encounter Visit Diagnoses Not on filedocumented in this encounter Additional Health Concerns Infection Onset Date Last Indicated Resolved Time COVID - 19 11/15/2023 11/15/2023 11/15/2023 11:4 7 PM CDT Assessment Noted Time PHQ-9 Depression Total Score: 0 11/05/19 9:00 AM CDT documented as of this encounter Care Teams Clinical Data Manager Relationship Specialty Start Date End Date Vaughn Bradshaw MD PCP - General Family Medicine 05/18/18 08/26/23 Kasey Williamson DO [address] [place] [address] PCP - General Family Medicine 09/14/23 Claudia Horn APRN [address] [place] [address] Advanced Practice Nurse 08/16/18 Vicenta Raymond [place] [address] Consulting Physician Obstetrics & Gynecology 09/25/21 Gus Chowdary MD #[address] [place] [address] Consulting Physician Colon and Rectal Surgery 07/23/22 Virginie Reyes, RN [place] Nurse Canal Tender 09/14/23 09/14/23 Virginie Reyes, RN [place] Nurse Canal Tender 11/19/23 11/29/23 Virginie Reyes, RN [place] Nurse Canal Tender 12/07/23 05/15/24 Kelley Lopez, TRUSS ASSEMBLER, TAFFY PULLER [address] [place] [address] Nurse Practitioner Advanced Practice Nurse 12/09/23 02/22/24 documented as of this encounter
--- OUTSIDE RECORDS SUMMARY | 2024-06-27 09:00 | XMS_ITS | Encounter Summary ---
Author Organization [facility] Address [address] [place] [address] Phone Care Team Providers Care Surgery Scheduler Name Role Phone Vaughn Bradshaw MD Primary Care Provider [phone] Claudia Horn APRN Unavailable [phone] Vicenta Raymond DO Unavailable Gus Chowdary MD Unavailable Kasey Williamson DO Primary Care Provider [phone] Virginie Reyes RN Unavailable Unavailable Virginie Reyes RN Unavailable Unavailable Virginie Reyes RN Unavailable Unavailable Kelley Lopez AIRFIELD DEFENCE GUARD, SAT INSTRUCTOR Unavailable [phone]- [phone] Reason for Visit * Reason Comments Medication Refill Encounter Details Date Type Department Care Team (Late st Contact Info) Description 05/06/2022 Refill [facility] #2 [place] [address] Vaughn Bradshaw MD [address] [place] [address] Medication Refill Social History Tobacco Use Types [...] Encounter - Prerna Mann RN - 05/07/2022 8:28 AM SUPERANNUATION FUNDS MANAGER Medication failed the protocol, provider to review and approve the medication order if appropriate. Requested Prescriptions Pending Prescriptions Disp Refills Ozempic, 1 MG/DOSE, 4 MG/3ML Solution Pen-injector [Pharmacy Med Name: OZEMPIC 1MG PER DOSE (1X4MG PEN)] 3 mL 0 Sig: INJECT 1 MG UNDER THE SKIN ONCE WEEKLY GLP-1 Agonists Protocol Failed - 05/06/2022 7:31 PM Failed - Lipid panel result on file [...] Dept 02/03/22 Office Visit [facility] MD [facility] [place] 12/16/21 Office Visit [facility] MD [facility] [...] Ref Range Status 01/15/2022 >60 >=60 Final RANNUATION FUNDS MANAGER documented in this encounter Plan of [...] documented as of this encounter Care Teams Surgery Scheduler Relationship Specialty Start Date End Date Vaughn Bradshaw MD PCP - General Family Medicine 05/18/18 08/26/23 Kasey Williamson DO [address] [place] [address] PCP - General Family Medicine 09/14/23 Claudia Horn APRN [address] [place] [address] Advanced Practice Nurse 08/16/18 Vicenta Raymond DO [address] [place] [address] Consulting Physician Obstetrics & Gynecology 09/25/21 Gus Chowdary MD #[address] [place] [address] Consulting Physician Colon and Rectal Surgery 07/23/22 Virginie Reyes, RN [place] Nurse Cost Recovery Technician 09/14/23 09/14/23 Virginie Reyes, RN [place] Nurse Cost Recovery Technician 11/19/23 11/29/23 Virginie Reyes, RN [place] Nurse Cost Recovery Technician 12/07/23 05/15/24 Kelley Lopez, AIRFIELD DEFENCE GUARD, SAT INSTRUCTOR [address] [place] [address] Nurse Practitioner Advanced Practice Nurse 12/09/23 02/22/24 documented as of this encounter
--- OUTSIDE RECORDS SUMMARY | 2024-06-27 09:00 | XMS_ITS | Encounter Summary ---
Author Organization [facility] Address [address] [facility] [place] [address] Phone Care Team Providers Care Freelance Art Director Name Role Phone Vaughn Bradshaw MD Primary Care Provider [phone] Claudia Horn PAPER SEALER Unavailable Vicenta Raymond DO Unavailable Gus Chowdary MD Unavailable Kasey Williamson DO Primary Care Provider [phone] Virginie Reyes RN Unavailable Unavailable Virginie Reyes RN Unavailable Unavailable Virginie Reyes RN Unavailable Unavailable Kelley Lopez PAPER SEALER, SPEECH THERAPY ASSISTANT Unavailable [phone]- [phone] Reason for Visit * Reason Onset Date Comments Sinus Pain 02/12/2021 Encounter Details Date Type Department Care Team (Late st Contact Info) Description 02/12/2021 Nurse Triage [facility] [address] [place] [address] Vaughn Bradshaw MD [address] [place] [address] Sinus Pain Social History Tobacco Use Types Packs/Day [...] have Coronavirus / COVID-19? No / Unsure 02/12/2021 11:05 AM DEPARTURE CLERK documented as of this encounter Miscellaneous Notes * Telephone Encounter - Allison Del Rio RN - 02/17/2021 9:40 AM DEPARTURE CLERK Sent patient [employer] message to let her know RTURE CLERK * Telephone Encounter - Vaughn Bradshaw MD - 02/16/2021 9:15 PM CST Can go to prompt care or be seen. RTURE CLERK * Telephone Encounter - Rhianna Rivers - 02/12/2021 11:02 AM CST Reason for Disposition Sinus congestion as part of a cold, present < 10 days Protocols used: SINUS PAIN OR [id number] S: Sinus pain, cough, B: Sinus pain/congestion x 1 week. Then today started developing dizziness sensation when bending over. Says her head feels very full but ears are not hurting. A: Denies fever or chills, ear ache, sore throat, rashes, NVD. Positive for cough, mild/intermittent SOB, sinus pain/congestion, No underlying history of respiratory conditions. No known COVID exposure. R: Asking for Rx to be sent in. Says PCP normally just sends in without having to see first. Pharmacy verified. RTURE CLERK documented in this encounter Plan of Treatment Not on file documented as of this encounter Visit Diagnoses Not on filedocumented in this encounter Additional Health Concerns Infection Onset Date Last Indicated Resolved Time COVID - 19 03/31/2021 03/31/2021 03/31/2021 9:59 PM DEPARTURE CLERK COVID - 19 Confirmed 03/31/2021 03/31/2021 022 12:16 AM DEPARTURE CLERK COVID - 19 01/14/2022 01/14/2022 01/15/2022 7:59 AM CDT Respiratory Rule-Out 01/14/2022 01/14/2022 022 8:08 AM CDT COVID - 19 11/15/2023 11/15/2023 11/15/2023 11:4 7 PM CDT Assessment Noted Time PHQ-9 Depression Total Score: 0 10/04/19 21 9:00 AM CDT documented as of this encounter Care Teams Freelance Art Director Relationship Specialty Start Date End Date Vaughn Bradshaw MD PCP - General Family Medicine 05/18/18 08/26/23 Kasey Williamson DO [address] [place] [address] PCP - General Family Medicine 09/14/23 Claudia Horn, PAPER SEALER [address] [place] [address] Advanced Practice Nurse 08/16/18 Vicenta Raymond DO [address] [place] [address] Consulting Physician Obstetrics & Gynecology 09/25/21 Gus Chowdary MD #[address] [place] [address] Consulting Physician Colon and Rectal Surgery 07/23/22 Virginie Reyes, RN [place] Nurse Irrigation Technician 09/14/23 09/14/23 Virginie Reyes, RN [place] Nurse Irrigation Technician 11/19/23 11/29/23 Virginie Reyes, RN [place] Nurse Irrigation Technician 12/07/23 05/15/24 Kelley Lopez, PAPER SEALER, SPEECH THERAPY ASSISTANT [address], [address] [place] [address] Nurse Practitioner Advanced Practice Nurse 12/09/23 02/22/24 documented as of this encounter
--- OUTSIDE RECORDS SUMMARY | 2024-06-27 09:00 | XMS_ITS | Encounter Summary ---
Author Organization [facility] Address [address] [place] [address] Phone Care Team Providers Care Transonic Engineer Name Role Phone Vaughn Bradshaw MD Primary Care Provider [phone] Claudia Horn APRN Unavailable Vicenta Raymond DO Unavailable Gus Chowdary MD Unavailable Kasey Williamson DO Primary Care Provider [phone] Virginie Reyes RN Unavailable Unavailable Virginie Reyes RN Unavailable Unavailable Virginie Reyes RN Unavailable Unavailable Kelley Lopez MANAGER MARKET DEVELOPMENT, GRAIN SACKER Unavailable [phone]- [phone] Reason for Visit * Reason Comments Medication Refill Encounter Details Date Type Department Care Team (Late st Contact Info) Description 03/03/2022 Refill [facility] #2 [place] [address] Vaughn Bradshaw MD #[address] [place] [address] Medication Refill Social History Tobacco Use Types [...] Coronavirus/COVID-19? No / Unsure 02/02/2022 11:51 AM INTERLIBRARY LOAN SERVICES LIBRARIAN documented as of this encounter Miscellaneous Notes * Telephone Encounter - Anne John RN - 03/04/2022 10:25 AM CST Medication failed the protocol, provider to review and approve the medication order if appropriate. Requested Prescriptions Pending Prescriptions Disp Refills Ozempic, 1 MG/DOSE, 4 MG/3ML Solution Pen-injector [Pharmacy Med Name: OZEMPIC 1MG PER DOSE (1X4MG PEN)] 3 mL 0 Sig: INJECT 1 MG UNDER THE SKIN ONCE A WEEK GLP-1 Agonists Protocol Failed - 03/03/2022 5:44 PM Failed - Lipid panel result on [...] Ref Range Status 01/15/2022 >60 >=60 Final RLIBRARY LOAN SERVICES LIBRARIAN documented in this encounter Plan of Treatment [...] documented as of this encounter Care Teams Transonic Engineer Relationship Specialty Start Date End Date Vaughn Bradshaw MD PCP - General Family Medicine 05/18/18 08/26/23 Kasey Williamson DO [address] [place] [address] PCP - General Family Medicine 09/14/23 Claudia Horn APRN [address] [place] [address] Advanced Practice Nurse 08/16/18 Vicenta Raymond DO [address] [place] [address] Consulting Physician Obstetrics & Gynecology 09/25/21 Gus Chowdary MD #[address] [facility] [address] [facility] [address] [place] [address] Consulting Physician Colon and Rectal Surgery 07/23/22 Virginie Reyes, RN [place] Nurse Software Quality Assurance Specialist 09/14/23 09/14/23 Virginie Reyes, RN [place] Nurse Software Quality Assurance Specialist 11/19/23 11/29/23 Virginie Reyes, RN [place] Nurse Software Quality Assurance Specialist 12/07/23 05/15/24 Kelley Lopez, MANAGER MARKET DEVELOPMENT, GRAIN SACKER #2 [facility] [address] [place] [address] Nurse Practitioner Advanced Practice Nurse 12/09/23 02/22/24 documented as of this encounter
--- OUTSIDE RECORDS SUMMARY | 2024-06-27 09:00 | XMS_ITS | Encounter Summary ---
Author Organization [facility] Address [address] [place] [address] Phone Care Team Providers Care Face Hardener Name Role Phone Vaughn Bradshaw MD Primary Care Provider [phone] Claudia Horn APRN Unavailable Vicenta Raymond DO Unavailable [phone] Gus Chowdary MD Unavailable Kasey Williamson DO Primary Care Provider [phone] Virginie Reyes RN Unavailable Unavailable Virginie Reyes RN Unavailable Unavailable Virginie Reyes RN Unavailable Unavailable Kelley Lopez SOFTWARE RELIABILITY ENGINEER, LANDSCAPE ENGINEER Unavailable [phone]- [phone] Reason for Visit * Reason Comments Medication Refill Encounter Details Date Type Department Care Team (Late st Contact Info) Description 10/01/2021 Refill [facility] #2 [place] [address] Vaughn Bradshaw MD [address] [place] [address] Medication Refill Social History Tobacco Use Types [...] documented as of this encounter Care Teams Face Hardener Relationship Specialty Start Date End Date Vaughn Bradshaw MD PCP - General Family Medicine 05/18/18 08/26/23 Kasey Williamson DO [address] [facility] [address] [address] PCP - General Family Medicine 09/14/23 Claudia Horn APRN [address] [place] [address] Advanced Practice Nurse 08/16/18 Vicenta Raymond DO ONE [address]ESSION[address] [address] Consulting Physician Obstetrics & Gynecology 09/25/21 Gus Chowdary MD #[address] [facility] [address] [place] [address] Consulting Physician Colon and Rectal Surgery 07/23/22 Virginie Reyes, RN [place] Nurse Printer Slotter Helper 09/14/23 09/14/23 Virginie Reyes, RN [place] Nurse Printer Slotter Helper 11/19/23 11/29/23 Virginie Reyes, RN [place] Nurse Printer Slotter Helper 12/07/23 05/15/24 Kelley Lopez, SOFTWARE RELIABILITY ENGINEER, LANDSCAPE ENGINEER [address] [facility] [address] [place] [address] Nurse Practitioner Advanced Practice Nurse 12/09/23 02/22/24 documented as of this encounter
--- OUTSIDE RECORDS SUMMARY | 2024-06-27 09:00 | XMS_ITS | Encounter Summary ---
Author Organization [facility] Address [address] [place] [address] Phone Care Team Providers Care Telephone Plant Power Operator Name Role Phone Vaughn Bradshaw MD Primary Care Provider [phone] Claudia Horn SHARPLES MACHINE OPERATOR Unavailable [phone] Vicenta Raymond DO Unavailable [phone] Gus Chowdary MD Unavailable Kasey Williamson DO Primary Care Provider [phone] Virginie Reyes RN Unavailable Unavailable Virginie Reyes RN Unavailable Unavailable Virginie Reyes RN Unavailable Unavailable Kelley Lopez SHARPLES MACHINE OPERATOR, RETAIL BUSINESS MANAGER Unavailable [phone] Encounter Details Date Type Department Care Team (Late st Contact Info) Description 01/12/2023 Transcribe Orders [facility] Central Scheduling [address] [place] [address] Maria Teresa Myers, RN [place] Social History Tobacco Use Types Packs/Day Years [...] suspected to have Coronavirus/COVID-19? No / Unsure 01/15/2023 7:00 AM CDT documented as of this encounter Plan [...] documented as of this encounter Care Teams Telephone Plant Power Operator Relationship Specialty Start Date End Date Vaughn Bradshaw MD PCP - General Family Medicine 05/18/18 08/26/23 Kasey Williamson DO [address] [place] [address] PCP - General Family Medicine 09/14/23 Claudia Horn APRN [address] [place] [address] Advanced Practice Nurse 08/16/18 Vicenta Raymond DO [address] [place] [address] Consulting Physician Obstetrics & Gynecology 09/25/21 Gus Chowdary MD #[address] [place] [address] Consulting Physician Colon and Rectal Surgery 07/23/22 Virginie Reyes, RN [place] Nurse Welder Apprentice Combination 09/14/23 09/14/23 Virginie Reyes, RN [place] Nurse Welder Apprentice Combination 11/19/23 11/29/23 Virginie Reyes, RN [place] Nurse Welder Apprentice Combination 12/07/23 05/15/24 Kelley Lopez, SHARPLES MACHINE OPERATOR, RETAIL BUSINESS MANAGER [address] [place] [address] Nurse Practitioner Advanced Practice Nurse 12/09/23 02/22/24 documented as of this encounter
--- OUTSIDE RECORDS SUMMARY | 2024-06-27 09:01 | XMS_ITS | Encounter Summary ---
Author Organization [facility] Address [address] [place] [address] Phone Care Team Providers Care Service Desk Analyst Name Role Phone Vaughn Bradshaw MD Primary Care Provider [phone] Claudia Horn APRN Unavailable Vicenta Raymond DO Unavailable [phone] Gus Chowdary MD Unavailable Kasey Williamson DO Primary Care Provider [phone] Virginie Reyes RN Unavailable Unavailable Virginie Reyes RN Unavailable Unavailable Virginie Reyes RN Unavailable Unavailable Kelley Lopez THEATER SET PRODUCTION DESIGNER, IT WEB DEVELOPMENT CONSULTANT Unavailable [phone]- [phone] Reason for Visit * Reason Comments Medication Refill Encounter Details Date Type Department Care Team (Late st Contact Info) Description 07/07/2021 Refill [facility] #[address] [place] [address] Vaughn Bradshaw MD [address] [place] [address] Medication Refill Social History Tobacco Use Types [...] documented as of this encounter Care Teams Service Desk Analyst Relationship Specialty Start Date End Date Vaughn Bradshaw MD PCP - General Family Medicine 05/18/18 08/26/23 Kasey Williamson DO [address] [facility] [address] [facility] [address] [place] [address] PCP - General Family Medicine 09/14/23 Claudia Horn APRN [address] [place] [address] Advanced Practice Nurse 08/16/18 Vicenta Raymond DO [address] [place] [address] Consulting Physician Obstetrics & Gynecology 09/25/21 Gus Chowdary MD #[address] [facility] [address] [place] [address] Consulting Physician Colon and Rectal Surgery 07/23/22 Virginie Reyes, RN [place] Nurse Lead Printer 09/14/23 09/14/23 Virginie Reyes, RN [place] Nurse Lead Printer 11/19/23 11/29/23 Virginie Reyes, RN [place] Nurse Lead Printer 12/07/23 05/15/24 Kelley Lopez, THEATER SET PRODUCTION DESIGNER, IT WEB DEVELOPMENT CONSULTANT [address], [facility] [address] [place] [address] Nurse Practitioner Advanced Practice Nurse 12/09/23 02/22/24 documented as of this encounter
--- OUTSIDE RECORDS SUMMARY | 2024-06-27 09:01 | XMS_ITS | Encounter Summary ---
Author Organization [facility] Address [address] [place] [address] Phone Care Team Providers Care Machine Packager Name Role Phone Vaughn Bradshaw MD Primary Care Provider [phone] Claudia Horn APRN Unavailable Vicenta Raymond DO Unavailable Gus Chowdary MD Unavailable Kasey Williamson DO Primary Care Provider [phone] Virginie Reyes RN Unavailable Unavailable Virginie Reyes RN Unavailable Unavailable Virginie Reyes RN Unavailable Unavailable Kelley Lopez POWER SAW MECHANIC, MUSIC VIDEO PRODUCER Unavailable [phone]- [phone] Reason for Visit * Reason Comments Medication Refill Encounter Details Date Type Department Care Team (Late st Contact Info) Description 12/09/2021 Refill [facility] #2 [place] [address] Vaughn Bradshaw MD #[address] [place] [address] Medication Refill Social History Tobacco Use Types [...] Encounter - Maria T Alejandre RN - 12/09/2021 8:53 AM CDT Medication failed the protocol, provider to review and approve the medication order if appropriate. Requested Prescriptions Pending Prescriptions Disp Refills ergocalciferol (VITAMIN D) 88818 UNIT Capsule [Pharmacy Med Name: VITAMIN D2 50,000IU (ERGO) CAP RX] 12 Capsule 0 Sig: TAKE 1 CAPSULE BY MOUTH EVERY 7 DAYS FOR 12 DOSES Vitamin Supplements (Adult) Protocol Failed - 12/09/2021 3:55 AM Failed - Active on medication list Failed - Vitamin D less than 1.25mg Passed - Visit with relevant provider in past 12 months or upcoming 90 days Recent Visits Date Type Provider Dept 11/04/21 Office Visit Vaughn Bradshaw MD [facility] 07/04/21 Office Visit Vaughn Bradshaw MD [facility] 04/21/21 Telemedicine Monae Jorgensen APRN, FIGUEROA [facility] [place] 02/24/21 Office Visit Vaughn Bradshaw MD [facility] 01/20/21 Office Visit Vaughn Bradshaw MD [facility] 12/09/20 Office Visit Vaughn Bradshaw MD [facility] [place] Showing recent visits within past 365 days and meeting all other requirements Future Appointments No visits were found meeting these conditions. Showing future appointments within next 90 days and meeting all other requirements albuterol 108 (90 Base) MCG/ACT Aerosol Solution [Pharmacy Med Name: ALBUTEROL HFA INH(200 PUFFS)18GM] 36 g 1 Sig: INHALE 2 PUFFS BY MOUTH EVERY 4 HOURS NEEDED FOR WHEEZING OR COUGH Short Acting Inhaled Beta-Agonists Protocol Passed - 12/09/2021 3:55 AM Passed - Visit with relevant provider in past 12 months or upcoming 90 days Recent Visits Date Type Provider Dept 11/04/21 Office Visit Vaughn Bradshaw MD [facility] 07/04/21 Office Visit Vaughn Bradshaw MD [facility] 04/21/21 Telemedicine Monae Jorgensen APRN, FIGUEROA [facility] [place] 02/24/21 Office Visit Vaughn Bradshaw MD [facility] 01/20/21 Office Visit Vaughn Bradshaw MD [facility] 12/09/20 Office Visit Vaughn Bradshaw MD [facility] [place] Showing recent visits within past 365 [...] documented as of this encounter Care Teams Machine Packager Relationship Specialty Start Date End Date Vaughn Bradshaw MD PCP - General Family Medicine 05/18/18 08/26/23 Kasey Williamson DO 2 [facility] [place] [address] PCP - General Family Medicine 09/14/23 Claudia Horn, POWER SAW MECHANIC [address] [place] [address] Advanced Practice Nurse 08/16/18 Vicenta Raymond DO [address] [place] [address] Consulting Physician Obstetrics & Gynecology 09/25/21 Gus Chowdary MD #[address] [facility] [address] [place] [address] Consulting Physician Colon and Rectal Surgery 07/23/22 Virginie Reyes, RN [place] Nurse Knotter Hand 09/14/23 09/14/23 Virginie Reyes, RN [place] Nurse Knotter Hand 11/19/23 11/29/23 Virginie Reyes, RN [place] Nurse Knotter Hand 12/07/23 05/15/24 Kelley Lopez, POWER SAW MECHANIC, MUSIC VIDEO PRODUCER [address], [facility] [address] [place] [address] Nurse Practitioner Advanced Practice Nurse 12/09/23 02/22/24 documented as of this encounter
--- OUTSIDE RECORDS SUMMARY | 2024-06-27 09:01 | XMS_ITS | Encounter Summary ---
Author Organization [facility] Address [address] [place] [address] Phone Care Team Providers Care Sociology Instructor Name Role Phone Vaughn Bradshaw MD Primary Care Provider [phone] Claudia Horn APRN Unavailable [phone] Vicenta Raymond DO Unavailable Gus Chowdary MD Unavailable Kasey Williamson DO Primary Care Provider [phone] Virginie Reyes RN Unavailable Unavailable Virginie Reyes RN Unavailable Unavailable Virginie Reyes RN Unavailable Unavailable Kelley Lopez CINETECHNICIAN, WIRE STITCHER OPERATOR Unavailable [phone]- [phone] Reason for Visit * Reason Comments Medication Refill Encounter Details Date Type Department Care Team (Late st Contact Info) Description 07/22/2021 Refill [facility] #2 [place] [address] Vaughn Bradshaw MD #1 [place] [address] Medication Refill Social History Tobacco Use Types [...] suspected to have Coronavirus/COVID-19? No / Unsure 07/15/2021 8:00 AM CDT documented as of this encounter Miscellaneous Notes * Telephone Encounter - Anne John RN - 07/23/2021 10:36 AM CDT Medication failed the protocol, provider to review and approve the medication order if appropriate. Requested Prescriptions Pending Prescriptions Disp Refills metFORMIN (GLUCOPHAGE) 1000 MG Tablet [Pharmacy Med Name: METFORMIN 1000MG TABLETS] 180 Tablet Sig: TAKE 1 TABLET BY MOUTH TWICE DAILY WITH MEALS Biguanides Protocol Failed - 07/22/2021 7:02 PM Failed - HgA1C on record in past 6 months HGB-A1C Date Value Ref Range Status 01/20/2021 7.8 (H) 4.0 - 6.0 % Final Passed - Visit with relevant provider in past 6 months or upcoming 90 days Recent Visits Date Type Provider Dept 07/04/21 Office Visit Vaughn Bradshaw MD [facility] 04/21/21 Telemedicine Moane Jorgensen APRN, WIRE STITCHER OPERATOR [facility] 02/24/21 Office Visit Vaughn [facility] MD [facility] [place] Showing recent visits within past 182 days and meeting all other requirements Future Appointments No visits were found meeting these conditions. Showing future appointments within next 90 days and meeting all other requirements Passed - GFR on record in past 6 months GFR, EST. NONAFRICAN Date Value Ref Range Status 06/19/2021 >60 >=60 Final documented in this encounter Plan of [...] documented as of this encounter Care Teams Sociology Instructor Relationship Specialty Start Date End Date Vaughn Bradshaw MD PCP - General Family Medicine 05/18/18 08/26/23 Kasey Williamson DO 2 [facility] [address] [place] [address] PCP - General Family Medicine 09/14/23 Claudia Horn APRN [address] [place] [address] Advanced Practice Nurse 08/16/18 Vicenta Raymond DO [address] [place] [address] Consulting Physician Obstetrics & Gynecology 09/25/21 Gus Chowdary MD #[address] [place] [facility] [address] [place] [address] Consulting Physician Colon and Rectal Surgery 07/23/22 Virginie Reyes RN [place] Nurse Retort Loader 09/14/23 09/14/23 Virginie Reyes, RN [place] Nurse Retort Loader 11/19/23 11/29/23 Virginie Reyes, RN [place] Nurse Retort Loader 12/07/23 05/15/24 Kelley Lopez, CINETECHNICIAN, WIRE STITCHER OPERATOR #2 [facility], [address] [place] [address] Nurse Practitioner Advanced Practice Nurse 12/09/23 02/22/24 documented as of this encounter
--- OUTSIDE RECORDS SUMMARY | 2024-06-27 09:01 | XMS_ITS | Encounter Summary ---
Author Organization [facility] Address [address] [place] [address] Phone Care Team Providers Care Resource Teacher Name Role Phone Vaughn Bradshaw MD Primary Care Provider [phone] Claudia Horn APRN Unavailable [phone] Vicenta Raymond DO Unavailable Gus Chowdary MD Unavailable Kasey Williamson DO Primary Care Provider [phone] Virginie Reyes RN Unavailable Unavailable Virginie Reyes RN Unavailable Unavailable Virginie Reyes RN Unavailable Unavailable Kelley Lopez LAY OUT WORKER, IT ARCHITECT Unavailable [phone]- [phone] Reason for Visit * Reason Comments Medication Refill Encounter Details Date Type Department Care Team (Late st Contact Info) Description 07/22/2021 Refill [facility] #2 [place] [address] Vaughn Bradshaw MD #[address] [place] [address] Medication Refill Social History Tobacco Use Types [...] Telephone Encounter - Anne John RN - 07/22/2021 12:56 PM CDT Medication failed the protocol, provider to review and approve the medication order if appropriate. Requested Prescriptions Pending Prescriptions Disp Refills metFORMIN (GLUCOPHAGE) 1000 MG Tablet [Pharmacy Med Name: METFORMIN 1000MG TABLETS] 90 Tablet 0 Sig: TAKE 1 TABLET BY MOUTH TWICE DAILY WITH MEALS Biguanides Protocol Failed - 07/22/2021 8:33 AM Failed - HgA1C on record in past 6 months HGB-A1C Date Value Ref Range Status 01/20/2021 7.8 (H) 4.0 - 6.0 % Final Passed - Visit with relevant provider in past 6 months or upcoming 90 days Recent Visits Date Type Provider Dept 07/04/21 Office Visit Vaughn Bradshaw MD [facility] 04/21/21 Telemedicine Monae Jorgensen APRN, IT ARCHITECT [facility] 02/24/21 Office Visit Vaughn Bradshaw MD [facility] [place] Showing recent visits within past 182 days and meeting all other requirements Future Appointments No visits were found meeting these conditions. Showing future appointments within next 90 days and meeting all other requirements Passed - GFR on record in past 6 months GFR, EST. NONAFRICAN Date Value Ref Range Status 06/19/2021 >60 >=60 Final simvastatin (ZOCOR) 40 MG Tablet [Pharmacy Med Name: SIMVASTATIN 40MG TABLETS] 90 Tablet 1 Sig: TAKE 1 TABLET BY MOUTH DAILY Hmg CoA Reductase Inhibitors Protocol Passed - 07/22/2021 8:33 AM Passed - Visit with relevant provider in past 12 months or upcoming 90 days Recent Visits Date Type Provider Dept 07/04/21 Office Visit Vaughn Bradshaw MD [facility] 04/21/21 Telemedicine Monae Jorgensen APRN, FIGUEROA [facility] [place] 02/24/21 Office Visit Vaughn Bradshaw MD [facility] 01/20/21 Office Visit Vaughn Bradshaw MD [facility] 12/09/20 Office Visit Vaughn Bradshaw MD [facility] 11/28/20 Telemedicine Vaughn Bradshaw MD [facility] 10/03/20 Office Visit Vaughn Bradshaw, MD [facility] [...] Range Status 01/20/2021 114.8 <130 mg/dL Final documented in this encounter Plan of [...] documented as of this encounter Care Teams Resource Teacher Relationship Specialty Start Date End Date Vaughn Bradshaw MD PCP - General Family Medicine 05/18/18 08/26/23 Kasey Williamson DO 2 [facility] [address] [place] [address] PCP - General Family Medicine 09/14/23 Claudia Horn APRN [address] [place] [address] Advanced Practice Nurse 08/16/18 Vicenta Raymond DO [address] [facility] [address] [place] [address] Consulting Physician Obstetrics & Gynecology 09/25/21 Gus Chowdary MD #2 [facility] [address] [place] [address] Consulting Physician Colon and Rectal Surgery 07/23/22 Virginie Reyes, FAYE [place] Nurse Buckle Sewer Machine 09/14/23 09/14/23 Virginie Reyes, RN [place] Nurse Buckle Sewer Machine 11/19/23 11/29/23 Virginie Reyes, RN [place] Nurse Buckle Sewer Machine 12/07/23 05/15/24 Kelley Lopez APRN, IT ARCHITECT #2 [facility] [address] [place] [address] Nurse Practitioner Advanced Practice Nurse 12/09/23 02/22/24 documented as of this encounter
--- OUTSIDE RECORDS SUMMARY | 2024-06-27 09:01 | XMS_ITS | Encounter Summary ---
Author Organization [facility] Address [address] [place] [address] Phone Care Team Providers Care Dish Maker Name Role Phone Vaughn Bradshaw MD Primary Care Provider [phone] Claudia Horn APRN Unavailable Vicenta Raymond DO Unavailable [phone] Gus Chowdary MD Unavailable Kasey Williamson DO Primary Care Provider [phone] Virginie Ryees RN Unavailable Unavailable Virginie Reyes RN Unavailable Unavailable Virginie Reyes RN Unavailable Unavailable Kelley Lopez SECONDARY CONNECTOR ARMATURE, PACKING TRACTOR MACHINE OPERATOR Unavailable [phone] Reason for Visit * Reason Comments Medication Refill Encounter Details Date Type Department Care Team (Late st Contact Info) Description 09/18/2021 Refill [facility] #2 [place] [address] Vaughn Bradshaw MD #[address] [place] [address] Medication Refill Social History Tobacco Use Types [...] suspected to have Coronavirus/COVID-19? No / Unsure 09/11/2021 11:41 PM CDT documented as of this encounter Miscellaneous Notes * Telephone Encounter - Maria T Alejandre RN - 09/18/2021 1:51 PM CDT Medications warning Per nursing clinical judgement, provider to review and approve the medication(s) order(s) if appropriate. Requested Prescriptions Pending Prescriptions Disp Refills naproxen (NAPROSYN) 500 MG Tablet [Pharmacy Med Name: NAPROXEN 500MG TABLETS] 60 Tablet 5 Sig: TAKE 1 TABLET BY MOUTH TWICE DAILY WITH MEALS NSAIDs Protocol Passed - 09/18/2021 3:55 AM Passed - Normal serum creatinine in past 12 months CREATININE, BLOOD Date Value Ref Range Status 09/12/2021 1.03 0.60 - 1.10 mg/dL Final Passed - Visit with relevant provider in past 12 months or upcoming 90 days Recent Visits Date Type Provider Dept 07/04/21 Office Visit Vaughn Bradshaw MD [facility] 04/21/21 Telemedicine Monae Jorgensen APRN, PACKING TRACTOR MACHINE OPERATOR [facility] [place] 02/24/21 Office Visit Vaughn Bradshaw MD [facility] 01/20/21 Office Visit Vaughn Bradshaw MD [facility] 12/09/20 Office Visit Vaughn Bradshaw MD [facility] 11/28/20 Telemedicine BradshawVaughn MD [facility] 10/03/20 Office Visit aVughn Bradshaw MD [facility] [place] Showing recent visits within past 365 days and meeting all other requirements Future Appointments No visits were found meeting these conditions. Showing future appointments within next 90 days and meeting all other requirements Passed - No matching NSAID med order in past 45 days No matching medication orders between 08/04/2021 1:51 PM and 09/18/2021 1:51 PM Passed - AST less than 55 or ALT less than 90 in past 12 months SGOT (AST) Date Value Ref Range Status 09/12/2021 47 (H) <=32 U/L Final SGPT (ALT) Date Value Ref Range Status 09/12/2021 40 <=41 U/L Final Passed - HGB greater than 10 or HCT greater than 30 in past 12 months HEMOGLOBIN (HGB) Date Value Ref Range Status 09/12/2021 11.5 (L) 12.0 - 15.8 g/dL Final HEMATOCRIT (HCT) Date Value Ref Range Status 09/12/2021 36.5 36.0 - 47.0 % Final documented in this encounter Plan of Treatment Not on file documented as of this encounter Visit Diagnoses Diagnosis Arthritis Arthropathy, unspecified, site unspecified documented in this encounter Additional Health Concerns Infection Onset Date Last Indicated Resolved Time COVID - 19 01/14/2022 01/14/2022 01/15/2022 7:59 AM CDT Respiratory Rule-Out 01/14/2022 01/14/2022 022 8:08 AM CDT COVID - 19 11/15/2023 11/15/2023 11/15/2023 11:4 7 PM CDT Assessment Noted Time PHQ-9 Depression Total Score: 0 10/04/19 21 9:00 AM CDT documented as of this encounter Care Teams Dish Maker Relationship Specialty Start Date End Date Vaughn Bradshaw MD PCP - General Family Medicine 05/18/18 08/26/23 Kasey Williamson DO [address] [place] [address] PCP - General Family Medicine 09/14/23 Claudia Horn APRN [address] [place] [address] Advanced Practice Nurse 08/16/18 Vicenta Raymond DO ONE PROFESSION[address] [facility] [address] [place] [address] Consulting Physician Obstetrics & Gynecology 09/25/21 Gus Chowdary MD #[address] [facility] [address] [place] [address] Consulting Physician Colon and Rectal Surgery 07/23/22 Virginie Reyes, RN [place] Nurse Gum Sprayer 09/14/23 09/14/23 Virginie Reyes, RN [place] Nurse Gum Sprayer 11/19/23 11/29/23 Virginie Reyes, RN [place] Nurse Gum Sprayer 12/07/23 05/15/24 Kelley Lopez, SECONDARY CONNECTOR ARMATURE, PACKING TRACTOR MACHINE OPERATOR [address], [address] [place] [address] Nurse Practitioner Advanced Practice Nurse 12/09/23 02/22/24 documented as of this encounter
--- OUTSIDE RECORDS SUMMARY | 2024-06-27 09:01 | XMS_ITS | Encounter Summary ---
Author Organization [facility] Address [address] [place] [place] [address] Phone Care Team Providers Care Pepper Cutter Name Role Phone Vaughn Bradshaw MD Primary Care Provider [phone] Claudia Horn APRN Unavailable Vicenta Raymond DO Unavailable [phone] Gus Chowdary MD Unavailable Kasey Williamson DO Primary Care Provider [phone] Virginie Reyes RN Unavailable Unavailable Virginie Reyes RN Unavailable Unavailable Virginie Reyes RN Unavailable Unavailable Kelley Lopez FINANCE ACCOUNTING INTERNSHIP, HANDLE SANDER OPERATOR Unavailable [phone] Reason for Visit * Reason Comments Medication Refill Encounter Details Date Type Department Care Team (Late st Contact Info) Description 09/12/2021 Refill [facility] #2 [place] [address] Vaughn Bradshaw MD #1 [place] [address] Medication Refill Social History Tobacco Use Types [...] Encounter - Maria T Alejandre RN - 09/12/2021 1:13 PM CDT Medication failed the protocol, provider to review and approve the medication order if appropriate. Requested Prescriptions Pending Prescriptions Disp Refills Rizatriptan Benzoate 10 MG Tablet [Pharmacy Med Name: RIZATRIPTAN 10MG TABLETS] 9 Tablet 5 Sig: TAKE 1 TABLET BY MOUTH A SINGLE DOSE. MAY REPEAT AT 2 HOUR INTERVALS. DO NOT EXCEED 3 IN 24HOURS Not Delegated - Serotonin Agonists (Oral and Nasal) Protocol Failed - 09/12/2021 12:19 PM Failed - This refill cannot be delegated; check utilization no more than 9 doses per month Passed - Visit with relevant provider in past 24 months or upcoming 90 days Recent Visits Date Type Provider Dept 07/04/21 Office Visit Vaughn Bradshaw MD [facility] 04/21/21 Telemedicine Monae Jorgensen APRN, HANDLE SANDER OPERATOR [facility] [place] 02/24/21 Office Visit Vaughn Bradshaw MD [facility] 01/20/21 Office Visit Vaughn Bradshaw MD [facility] 12/09/20 Office Visit Vaughn Bradshaw MD [facility] 11/28/20 Telemedicine BradshawVaughn covarrubias MD [facility] 10/03/20 Office Visit Vaughn Bradshaw MD [facility] [place] Showing recent visits within past 730 days and meeting all other requirements Future Appointments No visits were found meeting these conditions. Showing future appointments within next 90 days and meeting all other requirements Passed - No documented Systolic BP > 200 within past 3 months Passed - Number of active Serotonergic medications less than 3 documented in this encounter Plan of Treatment [...] documented as of this encounter Care Teams Pepper Cutter Relationship Specialty Start Date End Date Vaughn Bradshaw MD PCP - General Family Medicine 05/18/18 08/26/23 Kasey Williamson DO [address] [place] [address] PCP - General Family Medicine 09/14/23 Claudia Horn, FINANCE ACCOUNTING INTERNSHIP [address] [place] [address] Advanced Practice Nurse 08/16/18 Vicenta Raymond [place] [address] Consulting Physician Obstetrics & Gynecology 09/25/21 Gus Chowdary MD #[address] [facility] [address] [place] [address] Consulting Physician Colon and Rectal Surgery 07/23/22 Virginie Reyes, RN [place] Nurse Manager Culinary 09/14/23 09/14/23 Virginie Reyes, RN [place] Nurse Manager Culinary 11/19/23 11/29/23 Virginie Reyes, RN [place] Nurse Manager Culinary 12/07/23 05/15/24 Kelley Lopez, FINANCE ACCOUNTING INTERNSHIP, HANDLE SANDER OPERATOR [address], [address] [place] [address] Nurse Practitioner Advanced Practice Nurse 12/09/23 02/22/24 documented as of this encounter
--- OUTSIDE RECORDS SUMMARY | 2024-06-27 09:01 | XMS_ITS | Encounter Summary ---
Author Organization [facility] Address [address] [place] [address] Phone Care Team Providers Care Log Tumbler Name Role Phone Vaughn Bradshaw MD Primary Care Provider [phone] Claudia Horn APRN Unavailable Vicenta Raymond DO Unavailable Gus Chowdary MD Unavailable Kasey Williamson DO Primary Care Provider Virginie Reyes RN Unavailable Unavailable Virginie Reyes RN Unavailable Unavailable Virginie Reyes RN Unavailable Unavailable Kelley Lopez CARDIAC EXERCISE PHYSIOLOGIST, ANALYTICAL CONSULTANT Unavailable [phone] Reason for Visit * Reason Comments Medication Refill Encounter Details Date Type Department Care Team (Late st Contact Info) Description 09/12/2021 Refill [facility] - [place] #[address] [place] [address] Monae Jorgensen APRN, ANALYTICAL CONSULTANT #[address] [address] Medication Refill Social History Tobacco [...] Pending Prescriptions Disp Refills ergocalciferol (VITAMIN D) 02389 UNIT Capsule [Pharmacy Med Name: VITAMIN D2 50,000IU (ERGO) CAP RX] 12 Capsule 0 Sig: Take 1 Capsule by mouth every 7 days for 12 doses. Vitamin Supplements (Adult) Protocol Failed - 09/12/2021 12:19 PM Failed - Vitamin D less than 1.25mg Passed - Visit with relevant provider in past 12 months or upcoming 90 days Recent Visits Date Type Provider Dept 07/04/21 Office Visit Vaughn Bradshaw MD [facility] 04/21/21 Telemedicine Monae Jorgensen APRN, FIGUEROA [facility] [place] 02/24/21 Office Visit Vaughn Bradshaw MD [facility] 01/20/21 Office Visit Vaughn Bradshaw MD [facility] 12/09/20 Office Visit Vaughn Bradshaw MD [facility] 11/28/20 Telemedicine Vaughn Bradshaw MD [facility] 10/03/20 Office Visit Vaughn Bradshaw MD [facility] Showing recent visits within past 365 [...] documented as of this encounter Care Teams Log Tumbler Relationship Specialty Start Date End Date Vaughn Bradshaw MD PCP - General Family Medicine 05/18/18 08/26/23 Kasey Williamson DO [address] [facility] [address] [place] [address] PCP - General Family Medicine 09/14/23 Claudia Horn APRN [address] [place] [address] Advanced Practice Nurse 08/16/18 Vicenta Raymond DO [address] [place] [address] Consulting Physician Obstetrics & Gynecology 09/25/21 Gus Chowdary MD #2 [facility] [address] [place] [address] Consulting Physician Colon and Rectal Surgery 07/23/22 Virginie Reyes, RN [place] Nurse Cooker Operator 09/14/23 09/14/23 Virginie Reyes, RN [place] Nurse Cooker Operator 11/19/23 11/29/23 Virginie Reyes, RN [place] Nurse Cooker Operator 12/07/23 05/15/24 Kelley Lopez APRN, ANALYTICAL CONSULTANT [address], [address] [place] [address] Nurse Practitioner Advanced Practice Nurse 12/09/23 02/22/24 documented as of this encounter
--- OUTSIDE RECORDS SUMMARY | 2024-06-27 09:01 | XMS_ITS | Encounter Summary ---
Author Organization [facility] Address [address] [place] [address] Phone Care Team Providers Care Wrapper Opener Name Role Phone Vaughn Bradshaw MD Primary Care Provider [phone] Claudia Horn APRN Unavailable [phone] Vicenta Raymond DO Unavailable [phone] Gus Chowdary MD Unavailable Kasey Williamson DO Primary Care Provider [phone] Virginie Reyes RN Unavailable Unavailable Virginie Reyes RN Unavailable Unavailable Virginie Reyes RN Unavailable Unavailable Kelley Lopez CORING MACHINE OPERATOR, LINE MAINTAINER SECTION Unavailable [phone]- [phone] Reason for Visit * Reason Comments Medication Refill Encounter Details Date Type Department Care Team (Late st Contact Info) Description 08/28/2021 [facility]ill [facility]2 [place] [address] Vaughn Bradshaw MD #1 [place] [address] Medication Refill Social History Tobacco Use Types [...] suspected to have Coronavirus/COVID-19? No / Unsure 08/25/2021 8:55 AM CDT documented as of this encounter Miscellaneous Notes * Telephone Encounter - Maria T Alejandre RN - 08/28/2021 11:11 AM CDT Medication failed the protocol, provider to review and approve the medication order if appropriate. Requested Prescriptions Pending Prescriptions Disp Refills traZODone (DESYREL) 100 MG Tablet [Pharmacy Med Name: TRAZODONE 100MG TABLETS] 30 Tablet 4 Sig: TAKE 1 TABLET BY MOUTH EVERY NIGHT Serotonin Modulators (6 Month Refill Only) Protocol Failed - 08/28/2021 3:55 AM Failed - Has an encounter in the past 6 months with a depression or anxiety visit diagnosis Passed - Visit with relevant provider in past 6 months or upcoming 90 days Recent Visits Date Type Provider Dept 07/04/21 Office Visit Vaughn Bradshaw MD [facility] 04/21/21 Telemedicine Monae Jorgensen APRN, LINE MAINTAINER SECTION [facility] [place] Showing recent visits within past 182 days and meeting all other requirements Future Appointments No visits were found meeting these conditions. Showing future appointments within next 90 days and meeting all other requirements Passed - No PRN Use for Trazodone Passed - Patient has established therapy with Serotonin Modulators for at least 6 months documented in this encounter Plan of Treatment [...] documented as of this encounter Care Teams Wrapper Opener Relationship Specialty Start Date End Date Vaughn Bradshaw MD PCP - General Family Medicine 05/18/18 08/26/23 Kasey Williamson DO [address] [facility] [address] [place] [address] PCP - General Family Medicine 09/14/23 Claudia Horn APRN [address] [place] [address] Advanced Practice Nurse 08/16/18 Vicenta Raymond DO [address] [place] [address] Consulting Physician Obstetrics & Gynecology 09/25/21 Gus Chowdary MD #2 [facility] [address] [place] [address] Consulting Physician Colon and Rectal Surgery 07/23/22 Virginie Reyes RN [place] Nurse Commercial Credit Lead 09/14/23 09/14/23 Virginie Reyes RN [place] Nurse Commercial Credit Lead 11/19/23 11/29/23 Reyes, Virginie M, RN [place] Nurse Commercial Credit Lead 12/07/23 05/15/24 Kelley Lopez, CORING MACHINE OPERATOR, LINE MAINTAINER SECTION #2 [facility], [address] [place] [address] Nurse Practitioner Advanced Practice Nurse 12/09/23 02/22/24 documented as of this encounter
--- OUTSIDE RECORDS SUMMARY | 2024-06-27 09:01 | XMS_ITS | Encounter Summary ---
Author Organization [facility] Address [address] [place] [address] Phone Care Team Providers Care Curing Machine Operator Name Role Phone Vaughn Bradshaw MD Primary Care Provider [phone] Claudia Horn APRN Unavailable [phone] Vicenta Raymond DO Unavailable Gus Chowdary MD Unavailable Kasey Williamson DO Primary Care Provider Virginie Reyes RN Unavailable Unavailable Virginie Reyes RN Unavailable Unavailable Virginie Reyes RN Unavailable Unavailable Kelley Lopez REHABILITATION TEACHER, CARBIDE POWDER PROCESSOR Unavailable [phone]- [phone] Reason for Visit * Reason Comments Medication Refill Encounter Details Date Type Department Care Team (Late st Contact Info) Description 08/23/2021 Refill [facility] #2 [place] [address] Vaughn Bradshaw MD #1 [place] [address] Medication Refill Social History Tobacco Use Types [...] Encounter - Maria T Alejandre RN - 08/26/2021 8:27 AM CDT Medication failed the protocol, provider to review and approve the medication order if appropriate. Requested Prescriptions Pending Prescriptions Disp Refills Dulaglutide (Trulicity) 1.5 MG/0.5ML Solution Pen-injector [Pharmacy Med Name: TRULICITY 1.5MG/0.5ML SDP 0.5ML] 2 mL 3 Sig: ADMINISTER 1.5 MG UNDER THE SKIN WEEKLY GLP-1 Agonists Protocol Failed - 08/23/2021 8:09 AM Failed - HgA1C result on record in past 6 months HGB-A1C Date Value Ref Range Status 01/20/2021 7.8 (H) 4.0 - 6.0 % Final Passed - Lipid panel result on file [...] Dept 07/04/21 Office Visit Vaughn Bradshaw MD [facility] 04/21/21 Telemedicine Monae Jorgensen APRN, CARBIDE POWDER PROCESSOR [facility] Showing recent visits within past 182 days and meeting all other requirements Future Appointments No visits were found meeting these conditions. Showing future appointments within next 90 days and meeting all other requirements Passed - GFR on record in past 6 months GFR, EST. NONAFRICAN Date Value Ref Range Status 08/25/2021 >60 >=60 Final documented in this encounter [...] documented as of this encounter Care Teams Curing Machine Operator Relationship Specialty Start Date End Date Vaughn Bradshaw MD PCP - General Family Medicine 05/18/18 08/26/23 Kasey Williamson DO [address] [address] PCP - General Family Medicine 09/14/23 Claudia Horn APRN [address] [place] [address] Advanced Practice Nurse 08/16/18 Vicenta Raymond DO [address] [place] [address] Consulting Physician Obstetrics & Gynecology 09/25/21 Gus Chowdary MD #[address] [facility] [address] [place] [address] Consulting Physician Colon and Rectal Surgery 07/23/22 Virginie Reyes, RN [place] Nurse Jordan Worker 09/14/23 09/14/23 Virginie Reyes, RN [place] Nurse Jordan Worker 11/19/23 11/29/23 Virginie Reyes, RN [place] Nurse Jordan Worker 12/07/23 05/15/24 Kelley Lopez, REHABILITATION TEACHER, CARBIDE POWDER PROCESSOR #[address] [facility] [address] [place] [address] Nurse Practitioner Advanced Practice Nurse 12/09/23 02/22/24 documented as of this encounter
--- OUTSIDE RECORDS SUMMARY | 2024-06-27 09:01 | XMS_ITS | Encounter Summary ---
Author Organization [facility] Address [address] [place] [address] Phone Care Team Providers Care Locker Room Supervisor Name Role Phone Vaughn Bradshaw MD Primary Care Provider [phone] Claudia Horn APRN Unavailable Vicenta Raymond DO Unavailable [phone] Gus Chowdary MD Unavailable Kasey Williamson DO Primary Care Provider [phone] Virginie Reyes RN Unavailable Unavailable Virginie Reyes RN Unavailable Unavailable Virginie Reyes RN Unavailable Unavailable Kelley Lopez DIRECTOR SOFTWARE QUALITY ASSURANCE, EXTRUSION DIE REPAIR MANAGER Unavailable [phone]- [phone] Reason for Visit * Reason Comments Medication Refill Encounter Details Date Type Department Care Team (Late st Contact Info) Description 12/10/2021 Refill [facility] #2 [place] [address] Vaughn Bradshaw MD #1 [place] [address] Medication Refill Social History Tobacco Use Types [...] documented as of this encounter Care Teams Locker Room Supervisor Relationship Specialty Start Date End Date Vaughn Bradshaw MD PCP - General Family Medicine 05/18/18 08/26/23 Kasey Williamson DO [address] [place] [address] PCP - General Family Medicine 09/14/23 Claudia Horn APRN [address] [place] [address] Advanced Practice Nurse 08/16/18 Vicenta Raymond DO [place] [address] Consulting Physician Obstetrics & Gynecology 09/25/21 Gus Chowdary MD #[address] [facility] [address] [place] [address] Consulting Physician Colon and Rectal Surgery 07/23/22 Virginie Reyes, RN [place] Nurse Quality Assurance Lead 09/14/23 09/14/23 Virginie Reyes, RN [place] Nurse Quality Assurance Lead 11/19/23 11/29/23 Virginie Reyes, RN [place] Nurse Quality Assurance Lead 12/07/23 05/15/24 Kelley Lopez, DIRECTOR SOFTWARE QUALITY ASSURANCE, EXTRUSION DIE REPAIR MANAGER #[address] [facility], [address] [place] [address] Nurse Practitioner Advanced Practice Nurse 12/09/23 02/22/24 documented as of this encounter
[2024-06-27 09:12] LABS: EDUAAPPEAR Clear; EDUABILI Negative (Negative); EDUABLOOD Trace (Negative); EDUACOLOR1 Yellow; EDUAGLUCOSE Trace (Negative); EDUAKETONE Negative (Negative); EDUALEUKO 1+ (Negative); EDUANITRATE Negative (Negative); EDUAPH 5.5; EDUAPROTEIN 3+ (Negative); EDUAUROBILI 0.2
== END 2024-06-27 09:23 | disposition home or self-care (01) ==
PROVIDERS: Emergency Provider Nurse Practitioner
DX: N39.0 Urinary tract infection, site not specified (principal); I10 Essential (primary) hypertension
CPT/HCPCS: 81003; 87086; 99213; G0463

== ENCOUNTER 2024-10-01 18:24 | Emergency (ER) | payer MEDICARE, MEDICAID, SELFPAY ==
--- NOTE | ~2024-10-01 | XR_ITS ---
XR abdomen/kub 1V Ordering provider: CHRIST Navarrete History: . right CVA tenderness . Comparison: None. FINDINGS: BOWEL: Fecal material is loaded in the colon. Nonobstructive bowel gas pattern. ORGANOMEGALY: None. SIGNIFICANT PATHOLOGIC CALCIFICATIONS: None. OTHER: No free air is seen under the diaphragm. Degenerative the spine. Bilateral hip osteoarthritic changes. IMPRESSION: NO ACUTE ABDOMINAL FINDINGS. Constipation. Reviewed, dictated and finalized at location A.
--- OUTSIDE RECORDS SUMMARY | 2024-10-01 18:25 | XMS_ITS | Encounter Summary ---
Author Organization [facility] Address [address] [place] [address] Phone Care Team Providers Care Tin Stacker Name Role Phone Vaughn Bradshaw MD Primary Care Provider [phone] Claudia Horn GUITAR MAKER Unavailable Vicenta Raymond DO Unavailable [phone] Gus Chowdary MD Unavailable Kasey Williamson DO Primary Care Provider [phone] Virginie Reyes RN Unavailable Unavailable Virginie Reyes RN Unavailable Unavailable Virginie Reyes RN Unavailable Unavailable Kelley Lopez GUITAR MAKER, CAN TECHNICIAN Unavailable [phone] Reason for Visit * Reason Comments Medication Refill Encounter Details Date Type Department Care Team (Late st Contact Info) Description 06/16/2021 Refill [facility] #2 [place] [address] Vaughn Bradshaw MD #1 [place] [address] Medication Refill Social History Tobacco Use Types [...] documented in this encounter Plan of Treatment Upcoming Encounters Date Type Department Care Team (Late st Contact Info) Description 10/19/2024 10:00 AM CDT Office Visit [facility] #2 [place] [address] Kasey Williamson, DO [address] [address] 11/02/2024 10:20 AM CDT Office Visit [facility] #2 [place] [address] Kasey Williamson, DO 2 [facility] [address] [place] [address] documented as of this encounter Visit Diagnoses Diagnosis Anxiety and depression Dysthymic disorder documented in this encounter Additional Health Concerns Infection Onset Date Last Indicated Resolved Time COVID - 19 01/14/2022 01/14/2022 01/15/2022 7:59 AM CDT Respiratory Rule-Out 01/14/2022 01/14/2022 022 8:08 AM CDT COVID - 19 11/15/2023 11/15/2023 11/15/2023 11:4 7 PM CDT VRE 08/18/2024 08/18/2024 Assessment Noted Time PHQ-9 Depression Total Score: 0 10/04/19 21 9:00 AM CDT documented as of this encounter Care Teams Tin Stacker Relationship Specialty Start Date End Date Vaughn Bradshaw MD PCP - General Family Medicine 05/18/18 08/26/23 Kasey Williamson DO 2 [facility] [address] [place] [address] PCP - General Family Medicine 09/14/23 Claudia Horn, GUITAR MAKER [address] [place] [address] Advanced Practice Nurse 08/16/18 Vicenta Raymond DO [address] [facility] [address] [place] [address] Consulting Physician Obstetrics & Gynecology 09/25/21 Gus Chowdary MD #[address] [facility] [address] [place] [address] Consulting Physician Colon and Rectal Surgery 07/23/22 Virginie Reyes RN [place] Nurse Delicatessen Goods Stock Clerk 09/14/23 09/14/23 Reyes, Virginie M, RN [place] Nurse Delicatessen Goods Stock Clerk 11/19/23 11/29/23 Virginie Reyes RN [place] Nurse Delicatessen Goods Stock Clerk 12/07/23 05/15/24 Kelley Lopez APRN, CAN TECHNICIAN #2 [facility], [address] [place] [address] Nurse Practitioner Advanced Practice Nurse 12/09/23 02/22/24 documented as of this encounter
--- OUTSIDE RECORDS SUMMARY | 2024-10-01 18:25 | XMS_ITS | Encounter Summary ---
Author Organization [facility] Address [address] [place] [address] Phone Care Team Providers Care Regional Sales Associate Name Role Phone Vaughn Bradshaw MD Primary Care Provider [phone] Claudia Horn LABORER/GRADE CHECK Unavailable Vicenta Raymond DO Unavailable [phone] Gus Chowdary MD Unavailable Kasey Williamson DO Primary Care Provider [phone] Virginie Reyes RN Unavailable Unavailable Virginie Reyes RN Unavailable Unavailable Virginie Reyes RN Unavailable Unavailable Kelley Lopez LABORER/GRADE CHECK, METAL FABRICATOR HELPER Unavailable [phone] Reason for Visit * Reason Onset Date Comments Medication Refill 06/16/2021 Encounter Details Date Type Department Care Team (Late st Contact Info) Description 06/16/2021 Refill [facility] - [facility] #2 [place] [address] Vaughn Bradshaw MD #1 [place] [address] Medication Refill Social History Tobacco Use Types [...] Provider Dept 04/21/21 Telemedicine Monae Jorgensen APRN, METAL FABRICATOR HELPER [facility] 02/24/21 Office Visit Vaughn Bradshaw MD [facility] 01/20/21 Office Visit Vaughn Bradshaw MD [facility] 12/09/20 Office Visit Vaughn Bradshaw MD [facility] 11/28/20 Telemedicine Vaughn Bradshaw MD [facility] 10/03/20 Office Visit Vaughn Bradshaw MD [facility] Showing recent visits within past 365 [...] Description 10/19/2024 10:00 AM CDT Office Visit [facility] #2 [place] [address] Kasey Williamson, DO [address] [address] 11/02/2024 10:20 AM CDT Office Visit [facility] #2 [facility] [place] [address] Kasey Williamson, DO 2 [facility] [facility] [place] [address] documented as of this encounter Visit Diagnoses [...] documented as of this encounter Care Teams Regional Sales Associate Relationship Specialty Start Date End Date Vaughn Bradshaw MD PCP - General Family Medicine 05/18/18 08/26/23 Kasey Williamson DO [address] [address] PCP - General Family Medicine 09/14/23 Claudia Horn APRN [address] [place] [address] Advanced Practice Nurse 08/16/18 Vicenta Raymond DO [address] [facility] [address] [place] [address] Consulting Physician Obstetrics & Gynecology 09/25/21 Gus Chowdary MD #[address] [facility] [address] [place] [address] Consulting Physician Colon and Rectal Surgery 07/23/22 Virginie Reyes, RN [place] Nurse Seed Analysis Laboratory Assistant 09/14/23 09/14/23 Virginie Reyes, RN [place] Nurse Seed Analysis Laboratory Assistant 11/19/23 11/29/23 Virginie Reyes, RN [place] Nurse Seed Analysis Laboratory Assistant 12/07/23 05/15/24 Kelley Lopez, LABORER/GRADE CHECK, METAL FABRICATOR HELPER #2 [facility] [address] [place] [address] Nurse Practitioner Advanced Practice Nurse 12/09/23 02/22/24 documented as of this encounter
[2024-10-01 18:26] VITALS: BP 138/72; PULSE 72; RESP 20; TEMP 36.6; O2SAT 100
--- OUTSIDE RECORDS SUMMARY | 2024-10-01 18:26 | XMS_ITS | Encounter Summary ---
Author Organization [facility] Address [address] [place] [address] Phone Care Team Providers Care Public Administration Professor Name Role Phone Vaughn Bradshaw MD Primary Care Provider [phone] Claudia Horn MANAGER CLIENT SERVICE Unavailable Vicenta Raymond DO Unavailable [phone] Gus Chowdary MD Unavailable Kasey Williamson DO Primary Care Provider [phone] Virginie Reyes RN Unavailable Unavailable Virginie Reyes RN Unavailable Unavailable Virginie Reyes RN Unavailable Unavailable Kelley Lopez MANAGER CLIENT SERVICE, SALESPERSON SHEET MUSIC Unavailable [phone] Reason for Visit * Reason Onset Date Comments Medication Refill 06/23/2021 Encounter Details Date Type Department Care Team (Late st Contact Info) Description 06/23/2021 Refill [facility] #2 [place] [address] Vaughn Bradshaw MD #1 [place] [address] Medication Refill Social History Tobacco Use Types [...] Dept 04/21/21 Telemedicine Monae Jorgensen APRN, FIGUEROA [facility] 02/24/21 Office Visit Vaughn Bradshaw MD [...] Description 10/19/2024 10:00 AM CDT Office Visit [facility] #2 [place] [address] Kasey Williamson, DO [address] [address] 11/02/2024 10:20 AM CDT Office Visit [facility] #2 [place] [address] Kasey Williamson DO [address] [place] [place] [address] documented as of this encounter Visit Diagnoses [...] documented as of this encounter Care Teams Public Administration Professor Relationship Specialty Start Date End Date Vaughn Bradshaw MD PCP - General Family Medicine 05/18/18 08/26/23 Kasey Williamson DO [address] [place] [address] PCP - General Family Medicine 09/14/23 Claudia Horn APRN [address] [place] [address] Advanced Practice Nurse 08/16/18 Vicenta Raymond DO [address] [place] [address] Consulting Physician Obstetrics & Gynecology 09/25/21 Gus Chowdary MD #[address] [facility] [address] [place] [address] Consulting Physician Colon and Rectal Surgery 07/23/22 Virginie Reyes, RN [place] Nurse Overweaver 09/14/23 09/14/23 Virginie Reyes RN [place] Nurse Overweaver 11/19/23 11/29/23 Virginie Reyes, RN [place] Nurse Overweaver 12/07/23 05/15/24 Kelley Lopez, MANAGER CLIENT SERVICE, SALESPERSON SHEET MUSIC #2 [facility], [address] [place] [address] Nurse Practitioner Advanced Practice Nurse 12/09/23 02/22/24 documented as of this encounter
--- OUTSIDE RECORDS SUMMARY | 2024-10-01 18:26 | XMS_ITS | Encounter Summary ---
Author Organization [facility] Address [address] [place] [address] Phone Care Team Providers Care Fisher Mussel Name Role Phone Vaughn Bradshaw MD Primary Care Provider [phone] Claudia Horn PRIVATE WEALTH ADVISOR Unavailable Vicenta Raymond DO Unavailable [phone] Gus Chowdary MD Unavailable Kasey Williamson DO Primary Care Provider Virginie Reyes RN Unavailable Unavailable Virginie Reyes RN Unavailable Unavailable Virginie Reyes RN Unavailable Unavailable Kelley Lopez PRIVATE WEALTH ADVISOR, SOLUTIONS SPECIALIST Unavailable [phone] Reason for Visit * Reason Comments Medication Refill Encounter Details Date Type Department Care Team (Late st Contact Info) Description 06/24/2021 Refill [facility] #2 [place] [address] Vaughn Bradshaw MD #1 [place] [address] Medication Refill Social History Tobacco Use Types [...] Description 10/19/2024 10:00 AM CDT Office Visit [facility] #2 [place] [address] Kasey Williamson, DO [address] [address] 11/02/2024 10:20 AM CDT Office Visit [facility] #2 [place] [address] Kasey Williamson DO [address] [facility] [address] [place] [address] documented as of this encounter Visit Diagnoses [...] documented as of this encounter Care Teams Fisher Mussel Relationship Specialty Start Date End Date Vaughn Bradshaw MD PCP - General Family Medicine 05/18/18 08/26/23 Kasey Williamson DO [address] [facility] [address] [place] [address] PCP - General Family Medicine 09/14/23 Claudia Horn, PRIVATE WEALTH ADVISOR [address] [place] [address] Advanced Practice Nurse 08/16/18 Vicenta Raymond DO [address] [place], [place] [address] [address] Consulting Physician Obstetrics & Gynecology 09/25/21 Gus Chowdary MD #[address] [facility] [address] [place] [address] Consulting Physician Colon and Rectal Surgery 07/23/22 Virginie Reyes RN [place] Nurse Relay Man 09/14/23 09/14/23 Virginie Reyes RN [place] Nurse Relay Man 11/19/23 11/29/23 Virginie Reyes, RN [place] Nurse Relay Man 12/07/23 05/15/24 Kelley Lopez, PRIVATE WEALTH ADVISOR, SOLUTIONS SPECIALIST #2 [facility], [address] [place] [address] Nurse Practitioner Advanced Practice Nurse 12/09/23 02/22/24 documented as of this encounter
--- OUTSIDE RECORDS SUMMARY | 2024-10-01 18:26 | XMS_ITS | Encounter Summary ---
Author Organization [facility] Address [address] [place] [address] Phone Care Team Providers Care Director Of Financial Planning Name Role Phone Vaughn Bradshaw MD Primary Care Provider [phone] Claudia Horn OCCUPATIONAL THERAPY ASSISTANT Unavailable [phone] Vicenta Raymond DO Unavailable [phone] Gus Chowdary MD Unavailable Kasey Williamson DO Primary Care Provider Virginie Reyes RN Unavailable Unavailable Virginie Reyes RN Unavailable Unavailable Virginie Reyes RN Unavailable Unavailable Kelley Lopez OCCUPATIONAL THERAPY ASSISTANT, SYSTEMS DESIGNER Unavailable [phone] Reason for Visit * Reason Comments Medication Refill Encounter Details Date Type Department Care Team (Late st Contact Info) Description 02/01/2023 Refill [facility] #2 [place] [address] Vaughn Bradshaw MD #1 [place] [address] Medication Refill Social History Tobacco Use Types [...] Coronavirus/COVID-19? No / Unsure 01/28/2023 6:21 AM RADAR SIGNAL PROCESSING ENGINEER documented as of this encounter Miscellaneous Notes * Telephone Encounter - Maria T Alejandre RN - 02/02/2023 7:17 AM CST Name from pharmacy: SIMVASTATIN 40MG TABLETS Will file in chart as: simvastatin (ZOCOR) 40 MG Tablet The original prescription was reordered on 02/01/2023 by Vaughn Bradshaw MD. R SIGNAL PROCESSING ENGINEER * Telephone Encounter - Maria T Alejandre RN - 02/01/2023 3:48 PM CST duplicate R SIGNAL PROCESSING ENGINEER documented in this encounter Plan of Treatment Upcoming Encounters Date Type Department Care Team (Late st Contact Info) Description 10/19/2024 10:00 AM CDT [facility] Visit [facility] [place] #2 [place] [address] Kasey Williamson L, DO 2 [facility]. [address] [place] [address] 11/02/2024 10:20 AM CDT Office Visit [facility] [place] #2 [place] [address] Kasey Williamson DO [address] [facility] [address] [place] [address] documented as of this encounter Visit Diagnoses Not on filedocumented in this encounter Additional Health Concerns Infection Onset Date Last Indicated Resolved Time COVID - 19 11/15/2023 11/15/2023 11/15/2023 11:4 7 PM CDT VRE 08/18/2024 08/18/2024 Assessment Noted Time PHQ-9 Depression Total Score: 0 12/08/19 23 8:37 AM CDT documented as of this encounter Care Teams Director Of Financial Planning Relationship Specialty Start Date End Date Vaughn Bradshaw MD PCP - General Family Medicine 05/18/18 08/26/23 Kasey Williamson DO [address] [facility] [address] [place] [address] PCP - General Family Medicine 09/14/23 Claudia Horn, OCCUPATIONAL THERAPY ASSISTANT [address] [place] [address] Advanced Practice Nurse 08/16/18 Vicenta Raymond DO ONE [address] [address] Consulting Physician Obstetrics & Gynecology 09/25/21 Gus Chowdary MD #[address] [address] Consulting Physician Colon and Rectal Surgery 07/23/22 Virginie Reyes RN [place] Nurse Armature Winder Helper Repair 09/14/23 09/14/23 Virginie Reyes, RN [place] Nurse Armature Winder Helper Repair 11/19/23 11/29/23 Virginie Reyes RN [place] Nurse Armature Winder Helper Repair 12/07/23 05/15/24 Kelley Lopez, OCCUPATIONAL THERAPY ASSISTANT, SYSTEMS DESIGNER #2 [facility], [address] [place] [address] Nurse Practitioner Advanced Practice Nurse 12/09/23 02/22/24 documented as of this encounter
--- OUTSIDE RECORDS SUMMARY | 2024-10-01 18:26 | XMS_ITS | Clinical Summary ---
Author Organization [facility] Address [address] [place] [address] Care Team Providers Care Churn Operator Margarine Name Role Phone Kasey Williamson DO Primary Care Provider [phone] Source Comments [facility],non-owned Affiliates and Associated Physician Practices is amultiple site organization consisting of ambulatory clinics and hospital sitesin [place], [place], [place] and [place]. This disclosure is being madepursuant to the Care Everywhere program and may not contain all information available regarding this patient. Last updated 17.[facility] Allergies Active Allergy Reactions Criticality Noted Date Comments Ulmus Fulva Rhinitis 11/21/2021 Runny eyes, coughing Nsaids Bleeding 03/30/2023 Trichophyton Rhinitis,Unknown High 11/21/2017 Coughing, watery eyes Medications * Be aware that medications may not be up to date on this document. Alwaysverify current medications with the patient. montelukast (SINGULAIR) 10 MG tablet Take 1 (one) tablet by mouth every evening Active cyanocobalamin (VITAMIN B-12) 1000 MCG tablet Take 1 (one) tablet by mouth once daily 022 Active allopurinol (ZYLOPRIM) 300 MG tablet Take 1 (one) tablet by mouth once daily 022 Active albuterol HFA (PROVENTIL; VENTOLIN; PROAIR) 108 (90 Base) MCG/ACT inhaler Inhale 2 (two) puffs by mouth every 8 hours as needed for Shortness of Breath or Wheezing Active busPIRone (BUSPAR) 7.5 MG tablet Take 1 (one) tablet by mouth 2 times daily Active EPINEPHrine (EPIPEN) 0.3 MG/0.3ML auto-injector pen Inject 0.3 mL into muscle once daily as needed Active fenofibrate micronized (LOFIBRA) 200 MG capsule Take 1 (one) capsule by mouth once daily Active blood glucose (ACCU-CHEK YASMINE PLUS) test strip TEST BLOOD SUGAR FOUR TO FIVES TIMES DAILY Active levothyroxine (SYNTHROID) 50 MCG tablet Take 0.5 (one-half) tablet by mouth once daily Active azelastine (Astelin) 0.1 % nasal spray Amonate 2 (two) sprays into the nose 2 times daily Active fluticasone propionate (Flonase) 50 MCG/ACT nasal spray Amonate 1 (one) spray to 2 (two) sprays into each nostril once daily as needed Active pantoprazole EC (Protonix) 40 MG tablet TAKE 1 TABLET BY MOUTH TWICE DAILY 180 tablet Active rifAXIMin (Xifaxan) 550 MG tablet Take 1 (one) tablet by mouth 2 times daily 180 tablet 3 025 2025 Active nadolol (Corgard) 20 MG tablet TAKE 3 TABLETS ONE TIME DAILY 270 tablet 3 Active [facility]IX [facility]ANC[facility] Active ubrogepant (Ubrelvy) 50 MG tablet Take 1 (one) tablet by mouth daily as needed - may repeat one time for Migraine Maximum daily dose: 200mg/24 hours Active furosemide (Lasix) 40 MG tablet Take 1 (one) tablet by mouth once daily Active pramipexole (Mirapex) 0.5 MG tablet Take 0.5 (one-half) tablet by mouth at bedtime Active simvastatin (Zocor) 40 MG tablet Take 0.5 (one-half) tablet by mouth at bedtime Active melatonin 5 MG tablet Take 1 (one) tablet by mouth at bedtime Active vitamin D, ergocalciferol, (Drisdol) 1.25 MG (35763 UT) capsule Take 1 (one) capsule by mouth every 7 days (once a week) Active ferrous sulfate 325 (65 FE) MG tablet Take 1 (one) tablet by mouth once daily Active fexofenadine (Anabelle) 180 MG tablet Take 1 (one) tablet by mouth once daily Active ondansetron, disintegrating, (Zofran ODT) 4 MG tablet Take 1 (one) tablet by mouth every 6 hours as needed for Nausea/Vomiting Allow tablet to dissolve on the tongue Active acetaminophen (Tylenol) 500 MG tablet Take 1 (one) tablet by mouth every 8 hours as needed for Fever or Pain Maximum allowable Acetaminophen amount = 2 Grams (2000 mg) / 24 hours. 025 Active lactulose (Chronulac) 10 GM/15ML solution Take 30 mL by mouth every 4 hours Take 30 mL by mouth every 2-4 hours to target at least 3 soft bowel movements daily at home. If confused despite this, then take more lactulose or call your doctor. 8100 mL 08/22/19 25 2:32 PM CDT 025 Active cetirizine (ZyrTEC) 10 MG tablet Take 1 (one) tablet by mouth once daily 025 Active spironolactone (Aldactone) 100 MG tabletIndications :Metabolic dysfunction-assoc iated steatohepatitis (MASH) Take 1 (one) tablet by mouth once daily 30 tablet 025 Active Semaglutide (1 MG/DOSE) 2 MG/1.5ML Subcutaneous Solution Pen-injectorIndic ations:Class 2 obesity Inject 1 (one) mg subcutaneously every 7 days (once a week) 3 mL 025 Active Droplet Pen Wayne 31G X 8 MM needle USE TO INJECT INSULIN FOUR TIMES DAILY 025 Active insulin glargine (Lantus SoloStar) pen Inject 35 (thirty five) Units subcutaneously every 24 hours 45 mL 4 025 Active insulin lispro (HumaLOG;ADMelog) 100 UNIT/ML pen Inject 10 (ten) Units subcutaneously 3 times daily before meals (If BS is: 70-180 give no correction Insulin; 181-200 give 2 Units; 201-250 give 4 Units; 251-300 give 6 Units; 301-350 give 8 Units; 351-400 give 10 Units; 401 or greater give 12 units and call physician.) 30 mL 4 025 Active insulin glargine (Lantus SoloStar) pen Inject 25 (twenty five) Units subcutaneously every 24 hours 45 mL 025 2024 Discontinued( Reorder) amLODIPine-benaze pril (Lotrel) 10-20 MG capsule Take 1 (one) capsule by mouth once daily 025 2024 Discontinued( Clinical Decision) insulin lispro (HumaLOG;ADMelog) 100 UNIT/ML pen Inject 0 (zero) Units to 12 (twelve) Units subcutaneously 3 times daily before meals (If BS is: 70-180 give no correction Insulin; 181-200 give 2 Units; 201-250 give 4 Units; 251-300 give 6 Units; 301-350 give 8 Units; 351-400 give 10 Units; 401 or greater give 12 units and call physician.) 2024 Discontinued( Reorder) Semaglutide(0.25 or 0.5MG/DOS) 2 MG/3ML Solution Pen-injector (Ozempic (0.25 or 0.5 MG/DOSE))Indicati ons:Type 2 diabetes mellitus with diabetic chronic kidney disease, unspecified CKD stage, unspecified whether long term care social worker insulin use (HCC) Inject 0.5 mg subcutaneously every 7 days (once a week) for 5 doses 3 mL 08/22/19 25 2:32 PM CDT 025 2024 Discontinued( Reorder) Semaglutide(0.25 or 0.5MG/DOS) 2 MG/3ML Solution Pen-injector (Ozempic (0.25 or 0.5 MG/DOSE))Indicati ons:Type 2 diabetes mellitus with diabetic chronic kidney disease, unspecified CKD stage, unspecified whether shelter insulin use (HCC) Inject 1.0 mg subcutaneously every 7 days (once a week) for 5 doses Strength: 2 mg/3ml 3 mL 3 025 2024 Discontinued Semaglutide(0.25 or 0.5MG/DOS) 2 MG/3ML Solution Pen-injector (Ozempic (0.25 or 0.5 MG/DOSE))Indicati ons:Type 2 diabetes mellitus with diabetic chronic kidney disease, unspecified CKD stage, unspecified whether long term care social worker insulin use (HCC) Inject 1.0 mg subcutaneously every 7 days (once a week) for 5 doses Strength: 2 mg/3ml 3 mL 3 025 2024 Discontinued( Reorder) Semaglutide(0.25 or 0.5MG/DOS) 2 MG/3ML Solution Pen-injector (Ozempic (0.25 or 0.5 MG/DOSE))Indicati ons:Type 2 diabetes mellitus with diabetic chronic kidney disease, unspecified CKD stage, unspecified whether long term care social worker insulin use (HCC) Inject 1.0 mg subcutaneously every 7 days (once a week) for 5 doses Strength: 2 mg/3ml 3 mL 3 025 2024 Discontinued( Clinical Decision) insulin lispro (HumaLOG;ADMelog) 100 UNIT/ML pen Inject 10 (ten) Units subcutaneously 3 times daily before meals (If BS is: 70-180 give no correction Insulin; 181-200 give 2 Units; 201-250 give 4 Units; 251-300 give 6 Units; 301-350 give 8 Units; 351-400 give 10 Units; 401 or greater give 12 units and call physician.) 30 mL 4 025 2024 Discontinued( Reorder) insulin glargine (Lantus SoloStar) pen Inject 35 (thirty five) Units subcutaneously every 24 hours 45 mL 4 025 2024 Discontinued( Reorder) Active Problems Problem Noted Date Diagnosed Date Stage 3b chronic kidney disease 09/25/2024 Cirrhosis, nonalcoholic 08/19/2024 Acute encephalopathy 08/19/2024 Pancytopenia 08/03/2024 Altered mental status, unspe cified altered mental status type 07/31/2024 Hyperglycemia 06/06/2024 Metabolic dysfunction-associated steatohepatitis (MASH) 03/08/2024 Hepatic encephalopathy 03/05/2024 Iron deficiency anemia 03/05/2024 Thrombocytopenia 03/05/2024 Hyperlipidemia 03/05/2024 Esophageal varices 03/30/2023 Overview (03/31/2023): 11/21/21 EGD: grade 1 EV, moderate PHG 03/30/23 EGD: grade 1 EV, mild PHG, no change in antral nodules, biopsies negative for H pylori mcm Depression 03/30/2023 Hypothyroidism 03/30/2023 Essential (primary) hypertension 03/30/2023 High cholesterol 03/30/2023 Type 2 diabetes mellitus without complications 0 03/30/2023 Overview (06/21/2024): IMO 06/21/2024 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 09/03/2022 Arthritis 05/18/2018 03/30/2023 Migraines 05/18/2018 03/30/2023 Iron deficiency anemia due to chronic blood loss 12/10/2017 03/30/2023 Resolved Problems Problem Noted Date Diagnosed Date Resolved Date TATYANA (acute kidney injury) 06/20/2024 Generalized abdominal pain 06/06/2024 0 07/31/2024 Urinary tract infection with out hematuria, site unspecified 06/06/2024 07/31/2024 Abdominal pain, generalized 05/03/2024 07/31/2024 Cirrhosis, non-alcoholic 05/03/202402/2025 SOB (shortness of breath) 03/08/2024 Chest pain, unspecified type 03/08/2024 07/31/2024 Acute kidney injury 03/05/2024 08/01/19 25 Hyperkalemia 03/01/2024 07/31/2024 Hypertension, unspecified type 03/01/2024 07/31/2024 Other cirrhosis of liver 03/01/202402/2025 Morbid obesity 01/14/2022 03/30/2023 07/31/2024 Encounters Date Type Department Care Team Description 09/27/2024 Refill [facility] - Endocrinology [address] [place] [phone] Phoebe Joseph MD MEDICATION REFILL 09/26/2024 Telephone [facility] - Endocrinology [address] [place] [phone] Myranda Norton RN Med Question 09/25/2024 8:40 AM CDT Office Visit [facility] - Endocrinology [address] [place] [address], [place] [phone] Phoebe Joseph MD Type 2 diabetes mellitus without complication, with long-term current use of insulin (HCC) (Primary Dx); Hypothyroidism, unspecified type; High cholesterol; Mixed hyperlipidemia; 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 (HCC); Hepatic encephalopathy (HCC); Stage 3b chronic kidney disease (HCC) 09/25/2024 Travel 09/13/2024 Orders Only [facility] - GI [address] [place] [phone] Jorge Tran MD Class 2 obesity 09/13/2024 Refill [facility] - Nephrology [address] [place] [address] [phone] Allison eLavitt, HIGHWAY TECHNICIAN-[facility] Refill Request 09/11/2024 Refill [facility] - GI [address] [place] [address] [phone] Jorge Tran MD MEDICATION REFILL 09/11/2024 Orders Only [facility] - GI [address] [place] [phone] Jorge Tran MD Metabolic dysfunction-associated steatohepatitis (MASH) 09/09/2024 Refill [facility] 7S ACUTE [address] [place] [phone] Jozef Colorado MD Refill Request 09/08/2024 Refill [facility] - GI [address] [place] [address] [phone] Jorge Tran MD MEDICATION REFILL 09/06/2024 Refill [facility] - GI [address] [place] [address] [phone] Jorge Tran MD MEDICATION REFILL 08/25/2024 Refill [facility] - Nephrology [address] [place] [phone] Allison Leavitt APRN-FACILITATOR Refill Request 08/24/2024 8:30 AM CDT Office Visit [facility] - GI [address] [place] [phone] Jorge Tran MD Decompensated cirrhosis (HCC) (Primary Dx); Metabolic dysfunction-associated steatohepatitis (MASH); Portal hypertension (HCC); Secondary esophageal varices without bleeding (HCC); Hepatic encephalopathy (HCC); Other ascites; Chronic kidney disease, unspecified CKD stage; Class 2 obesity 08/24/2024 7:55 AM CDT - 08/24/2024 11:59 PM CDT Hospital Encounter [facility] LAB OP DRAW STATION [address] [place] [phone] Discharge Disposition: Home or Self Care 08/24/2024 Travel 08/23/2024 Transitional Care [facility] CARE COORDINATION [address] [place] [phone] Kati Garcia, FAYE Transitions Of Care 08/21/2024 Orders Only [facility] - [address] [phone] Allison Leavitt APRN-FACILITATOR Type 2 diabetes mellitus with diabetic chronic kidney disease, unspecified CKD stage, unspecified whether shelter insulin use (HCC) 08/19/2024 5:28 PM CDT - 08/21/2024 3:26 PM CDT Hospital Encounter [facility] 8S ACUTE [address] [place] [phone] Nory Cash MD Nelson, MD Jackson Tiwari Alex S, MD Emergency Medicine Discharge Disposition: Home or Self Care 08/19/2024 Travel 08/18/2024 Orders Only [facility] - [address] [phone] Allison Leavitt APRN-FACILITATOR 08/15/2024 Telephone [facility] [address] [place] [phone] Carlos Ornelas, RN Appointment 08/06/2024 Results Follow-Up [facility] EMERGENCY DEPARTMENT [address] [place] [phone] Jorge Tran MD 08/04/2024 Transitional Care [facility] CARE COORDINATION [address] [place] [phone] Kati Garcia, FAYE Transitions Of Care 07/31/2024 1:48 PM CDT - 08/03/2024 4:13 PM CDT Hospital Encounter [facility] [address]S ACUTE [address] [place] [address] [phone] Sivakumar Max MD Agbim, Uchenna A, MD Gastroenterology Discharge Disposition: Home or Self Care 07/31/2024 Travel 07/28/2024 Telephone [facility] - GI [address] [place] [phone] Allison Leavitt APRN-FIGUEROA Results; Question 07/28/2024 Orders Only [facility] - GI [address] [place] [phone] Allison Leavitt APRN-FACILITATOR 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 (HCC) 07/24/2024 11:06 PM CDT - 07/25/2024 2:48 AM CDT Emergency [facility] EMERGENCY DEPARTMENT [address] [place] [phone] Piero Coronel MD Left lower quadrant abdominal pain (Primary Dx); Shortness of breath; History of UTI Discharge Disposition: Home or Self Care 07/24/2024 Telephone [facility] - GI [address] [place] [phone] Allison Leavitt APRN-FACILITATOR Pain Abdominal 07/16/2024 9:07 PM CDT - 07/17/2024 1:58 AM CDT Emergency [facility] EMERGENCY DEPARTMENT [address] [place] [address] [phone] Pete Bower MD Hyperglycemia (Primary Dx); Abdominal pain, unspecified abdominal location; Cirrhosis of liver without ascites, unspecified hepatic cirrhosis type (HCC) Discharge Disposition: Home or Self Care 07/16/2024 Travel 07/13/2024 Refill [facility] - [address] [facility] [place] [place] [phone] Allison Leavitt APRN-FIGUEROA Refill Request 07/06/2024 Orders Only [facility] - [address] [facility] [place] [phone] Allison Leavitt, HIGHWAY TECHNICIAN-FIGUEROA 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 (HCC) from Last 3 Months Immunizations Immunization Administration Dates Next Due INFLUENZA VACCINE, TRIV. (FL UZONE; FLULAVAL; FLUARIX; AFLURIA TRIVALENT; 6MO+), 0.5 ML (IIV3) 03/04/2024 Family History Medical History Relation Name Comments CVA Father Cancer - Other Father ENT CAD (Coronary Artery Disease) Mother of heart attack at 43 Other - Hepatic/Liver Neg Hx Relation Name Status Comments Father Mother Social History Tobacco Use Types Packs/Day Years Used Date Smoking Tobacco: Never Passive Smoke Exposure: Never Smokeless Tobacco: Never Tobacco Cessation:Counseling Given: No Alcohol Use Standard Drinks/Week Comments Never 0 (1 standard drink = 0.6 oz pur e alcohol) AUDIT-C Answer Date Recorded Q1: How often do you have a drink containing alcohol? Never 08/19/2024 Q2: How many drinks containi ng alcohol do you have on a typical day when you are drinking? Patient does not drink Q3: How often do you have si x or more drinks on one occasion? Never 08/19/2024 Overall Financial Resource Strain (CARDIA) Answe r Date Recorded How hard is it for you to pa y for the very basics like food, housing, medical care, and heating? Not hard at all 08/19/2024 PHQ-2 Answer Date Recorded Patient Health Questionnaire-2 Score 2 01/11/2023 [facility] [employer] [place] of Occupat ional Health - Occupational Stress Questionnaire Answer Date Recorded Do you feel stress - tense, restless, nervous, or anxious, or unable to sleep at night because your mind is troubled all the time - these days? Not at all 08/19/2024 Hunger Vital Sign Answer Date Recorded Within the past 12 months, y ou worried that your food would run out before you got the money to buy more. Never true 08/20/19 25 Within the past 12 months, t he food you bought just didn't last and you didn't have money to get more. Never true 08/19/2024 PRAPARE - Transportation Answer Date Re corded In the past 12 months, has l ack of transportation kept you from medical appointments or from getting medications? No 07/22 In the past 12 months, has l ack of transportation kept you from meetings, work, or from getting things needed for daily living? No 08/19/2024 Housing Stability Vital Sign Answer Jose e Recorded In the last 12 months, was t here a time when you were not able to pay the mortgage or rent on time? No 08/19/2024 In the past 12 months, how m any times have you moved where you were living? 0 08/19/2024 At any time in the past 12 m [facility], were you homeless or living in a chcf (including now)? No 08/19/2024 Comments No Sex and Gender Information Value Date Recorded Sex Assigned at Not on file Legal Sex Female 12:53 PM CARE TRANSPORT NURSE Gender Identity Not on file Sexual Orientation Not on file Last Filed Vital Signs Vital Sign Reading Time Taken Comments Blood Pressure 124/82 09/25/2024 8:26 AM CDT Pulse 72 09/25/2024 8:26 AM CDT Temperature 36.7 C (98 F) 08/24/2024 8:42 AM CDT Respiratory Rate 18 08/21/2024 11:30 AM CDT Oxygen Saturation 96% 09/25/2024 8:26 AM CDT Inhaled Oxygen Concentration - - Weight 92.5 kg (204 lb) 09/25/2024 8:26 AM CDT Height 154.9 cm (5' 1) 08/24/2024 8:42 AM CDT Body Mass Index 38.55 08/24/2024 8:42 AM CDT Plan of Treatment Upcoming Encounters Date Type Department Care Team (Late st Contact Info) Description 10/05/2024 4:00 PM CDT Office Visit [facility] GI [address] [place] [phone] Nalini Ramírez, PhD [address] [place] [phone] 11/28/2024 3:30 PM CDT Office Visit [facility] - GI [address] [place] [phone] Jorge Tran MD [address] [place] [address] [phone] 02/01/2025 12:30 PM CARE TRANSPORT NURSE Appointment [facility] [address] [place] [phone] Jorge Tran MD [address] [place] [phone] 02/01/2025 2:30 PM CARE TRANSPORT NURSE Office Visit [facility] - GI [address] [place] [phone] Jorge Tran MD [address] [place] [phone] 02/12/2025 11:00 AM CARE TRANSPORT NURSE Office [facility] - Endocrinology [address] [place] [phone] Phoebe Jsoeph MD [address] [place] [address] [place] [phone] Health Maintenance Due Date Last Done Comments [...] SCREENING 03/22/2024 MEDICARE AWV CALENDAR YEAR 2024 INFLUENZA VACCINE (#1) 2024 , 12/07/2022, 02/03/2022, Additional history exists DIABETES-HGB A1C 12/26/2024 09/25/2024, , 06/07/2024, Additional history exists MAMMOGRAM 07/28/2025 07/29/2023, 0511/2023, 07/29/2023, Additional history exists DIABETES-SERUM CREATININE 08/24/20252024, 08/21/2024, 08/20/2024, Additional history exists HIV SCREENING Completed 12/22/2017 HEPATITIS C SCREENING Completed 01/24/2018 , 01/24/2018, 01/24/2018, Additional history exists HIB VACCINE Aged Out [...] Patient-Stated? Author Medication Management General On track( 025 8:34 AM CDT) No Fidelia Lainez, RN Note: Expected end date: 1 year Interventions: Take all medications as prescribed Safety General On track( 025 8:34 AM CDT) Melany Wood, FAYE Note: Expected end date: ongoing Interventions: Your nurse will assess your risk for falls/injury each visit Make and keep follow-up appointments General On track( 025 8:34 AM CDT) No Melany Kuhn, construction director Procedure Name Priority Date/Time Associated Diagnosis Comments HEMOGLOBIN A1C - POINT OF CARE (AMB) [facility] Routine 09/25/2024 8:42 AM CDT Type 2 diabetes mellitus without complication, with long-term current use of insulin (HCC) DIFFERENTIAL MANUAL Routine 08/24/2024 8 :22 AM CDT 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 (HCC) PT-INR [facility] Routine 08/24/2024 8:22 AM CDT 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 (HCC) COMPREHENSIVE METABOLIC PANEL Routine 08/24/2024 8:22 AM CDT 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 (HCC) CBC W AUTO DIFFERENTIAL Routine 08/25/19 25 8:22 AM CDT 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 (HCC) GLUCOSE - POINT OF CARE Routine 08/22/19 11:23 AM CDT PT-INR [facility] Routine 08/21/2024 6:30 AM CDT PHOSPHORUS BLOOD Routine 08/21/2024 6:30 AM CDT MAGNESIUM BLOOD Routine 08/21/2024 6:30 AM CDT COMPREHENSIVE METABOLIC PANEL Routine 08/21/2024 6:30 AM CDT CBC W/O DIFFERENTIAL Routine 08/21/2024 6:30 AM CDT GLUCOSE - POINT OF CARE Routine 08/22/19 4:10 AM CDT GLUCOSE - POINT OF CARE Routine 08/22/19 12:12 AM CDT GLUCOSE - POINT OF CARE Routine 08/21/19 9:33 PM CDT GLUCOSE - POINT OF CARE Routine 08/21/19 6:30 PM CDT GLUCOSE - POINT OF CARE Routine 08/21/19 3:23 PM CDT MRI LUMBAR SPINE WWO CONTRAST Routine 08/20/2024 12:09 PM CDT Back pain, unspecified back location, unspecified back pain laterality, unspecified chronicity GLUCOSE - POINT OF CARE Routine 08/21/19 10:18 AM CDT GLUCOSE - POINT OF CARE Routine 08/21/19 7:45 AM CDT CULTURE BLOOD Timed 08/20/2024 3:43 AM CDT PT-INR [facility] Routine 08/20/2024 3:30 AM CDT PHOSPHORUS BLOOD Routine 08/20/2024 3:30 AM CDT MAGNESIUM BLOOD Routine 08/20/2024 3:30 AM CDT COMPREHENSIVE METABOLIC PANEL Routine 08/20/2024 3:30 AM CDT CBC W/O DIFFERENTIAL Routine 08/20/2024 3:30 AM CDT CULTURE BLOOD Timed 08/20/2024 3:30 AM CDT URINALYSIS REFLEX MICROSCOPIC REFLEX CULTURE STAT 08/20/2024 2:14 AM CDT CULTURE URINE STAT 08/20/2024 2:14 AM CDT GLUCOSE - POINT OF CARE Routine 08/20/19 10:16 PM CDT XR CHEST 1VW PORTABLE STAT 08/19/2024 9:31 PM CDT Edema, unspecified type AMMONIA STAT 08/19/2024 4:59 PM CDT MAGNESIUM BLOOD STAT 08/19/2024 4:59 PM CDT PT-INR [facility] STAT 08/19/2024 4:59 PM CDT COMPREHENSIVE METABOLIC PANEL STAT 08/19/2024 4:59 PM CDT CBC W AUTO DIFFERENTIAL STAT 08/20/19 4:59 PM CDT GLUCOSE - POINT OF CARE Routine 08/04/19 11:13 AM CDT GLUCOSE - POINT OF CARE Routine 08/04/19 7:56 AM CDT PT-INR [facility] AM Draw 08/03/2024 3:51 AM CDT COMPREHENSIVE METABOLIC PANEL AM Draw 08/03/2024 3:51 AM CDT MAGNESIUM BLOOD Routine 08/03/2024 3:51 AM CDT PHOSPHORUS BLOOD Routine 08/03/2024 3:51 AM CDT CBC W/O DIFFERENTIAL AM Draw 08/03/2024 3:51 AM CDT GLUCOSE - POINT OF CARE Routine 08/03/19 8:53 PM CDT GLUCOSE - POINT OF CARE Routine 08/03/19 4:29 PM CDT CULTURE BLOOD STAT 08/02/2024 12:59 PM CDT CULTURE BLOOD STAT 08/02/2024 12:48 PM CDT GLUCOSE - POINT OF CARE Routine 08/03/19 11:16 AM CDT GLUCOSE - POINT OF CARE Routine 08/03/19 7:55 AM CDT PT-INR [facility] AM Draw 08/02/2024 4:55 AM CDT COMPREHENSIVE METABOLIC PANEL AM Draw 08/02/2024 4:55 AM CDT MAGNESIUM BLOOD Routine 08/02/2024 4:55 AM CDT PHOSPHORUS BLOOD Routine 08/02/2024 4:55 AM CDT CBC W/O DIFFERENTIAL AM Draw 08/02/2024 4:55 AM CDT GLUCOSE - POINT OF CARE Routine 08/02/19 7:56 PM CDT URINE DRUG SCREEN IMMUNOASSAY Routine 08/01/2024 6:45 PM CDT URINALYSIS REFLEX MICROSCOPIC REFLEX CULTURE STAT 08/01/2024 6:45 PM CDT GLUCOSE - POINT OF CARE Routine 08/02/19 5:27 PM CDT GLUCOSE - POINT OF CARE Routine 08/02/19 4:26 PM CDT GLUCOSE - POINT OF CARE Routine 08/02/19 12:25 PM CDT GLUCOSE - POINT OF CARE Routine 08/02/19 8:18 AM CDT PT-INR [facility] AM Draw 08/01/2024 5:37 AM CDT COMPREHENSIVE METABOLIC PANEL AM Draw 08/01/2024 5:37 AM CDT MAGNESIUM BLOOD Routine 08/01/2024 5:37 AM CDT PHOSPHORUS BLOOD Routine 08/01/2024 5:37 AM CDT CBC W/O DIFFERENTIAL AM Draw 08/01/2024 5:37 AM CDT GLUCOSE - POINT OF CARE Routine 08/01/19 8:57 PM CDT PT EVAL AND TREAT Routine 07/31/2024 7:4 8 PM CDT OT EVAL AND TREAT Routine 07/31/2024 7:4 8 PM CDT ED PARACENTESIS Routine 07/31/2024 5:35 PM CDT TSH REFLEX FREE T4 Routine 07/31/2024 4: 53 PM CDT TROPONIN-I HIGH SENSITIVE REFLEX 1HOUR Timed 07/31/2024 4:53 PM CDT CULTURE BLOOD STAT 07/31/2024 2:25 PM CDT AMMONIA STAT 07/31/2024 2:20 PM CDT TROPONIN-I HIGH SENSITIVE BASELINE + 1HR STAT 07/31/2024 2:20 PM CDT COMPREHENSIVE METABOLIC PANEL STAT 07/31/2024 2:20 PM CDT CBC W AUTO DIFFERENTIAL STAT 08/01/19 2:20 PM CDT CULTURE BLOOD STAT 07/31/2024 2:20 PM CDT XR CHEST 1VW PORTABLE STAT 07/31/2024 2:08 PM CDT Altered mental status, unspecified altered mental status type GLUCOSE - POINT OF CARE Routine 08/01/19 1:46 PM CDT CARDIAC EKG ORDER 07/26/2024 10: 55 AM CDT URINALYSIS W/MICROSCOPIC REFLEX TO CULTURE STAT 07/25/2024 1:00 AM CDT CULTURE URINE Routine 07/25/2024 1:[address] ABDOMEN PELVIS W CONTRAST STAT 07/24/2024 5:32 PM CDT Left lower quadrant abdominal pain TROPONIN-I HIGH SENSITIVE REFLEX 1HOUR Timed 07/24/2024 3:28 PM CDT XR CHEST 2VW STAT 07/24/2024 1:13 PM CDT Shortness of breath DIFFERENTIAL MANUAL STAT 07/24/2024 1 2:23 PM CDT LIPASE BLOOD STAT 07/24/2024 12:23 PM CDT TROPONIN-I HIGH SENSITIVE BASELINE + 1HR STAT 07/24/2024 12:23 PM CDT PT-INR [facility] STAT 07/24/2024 12:23 PM CDT COMPREHENSIVE METABOLIC PANEL STAT 07/24/2024 12:23 PM CDT CBC W AUTO DIFFERENTIAL STAT 07/25/19 12:23 PM CDT EKG 12-LEAD STAT 07/24/2024 12:20 PM CDT Shortness of breath TROPONIN-I HIGH SENSITIVE REFLEX 1HOUR Timed 07/17/2024 1:07 AM CDT EKG 12-LEAD STAT 07/17/2024 12:03 AM CDT Abdominal pain, unspecified abdominal location DIFFERENTIAL MANUAL STAT 07/16/2024 1 1:31 PM CDT TROPONIN-I HIGH SENSITIVE BASELINE + 1HR STAT 07/16/2024 11:31 PM CDT URINALYSIS REFLEX MICROSCOPIC REFLEX CULTURE STAT 07/16/2024 11:31 PM CDT HYDROXYBUTYRATE BETA STAT 07/16/2024 11:31 PM CDT BLOOD GASES PRIYANK + COOX PANEL STAT 07/16/2024 11:31 PM CDT COMPREHENSIVE METABOLIC PANEL STAT 07/16/2024 11:31 PM CDT CBC W AUTO DIFFERENTIAL STAT 07/17/19 11:31 PM CDT GLUCOSE - POINT OF CARE Routine 07/17/19 8:59 PM CDT from Last 3 Months Results * HEMOGLOBIN A1C - POINT OF CARE (AMB) [facility] (09/25/2024 8:42 AM CDT) Pathologist [facility] Hemoglobin A1c POCT 9.5 % [address] BLOOD SPECIMEN / Unknown 09/25/2024 8:42 AM CDT us Phoebe Joseph MD LAB - POINT OF CARE ORDERABLES Final Result [address] [place] [address], [facility] [phone] * (ABNORMAL) PT-INR [facility] (08/24/2024 8:22 AM CDT) Only the most recent of8 resultswithin the time period is included. PT 15.1(H) 12.1 - 14.8 Seconds 08/24/2024 9:32 AM CDT [facility] INR 1.2 See Comment 08/24/2024 9:32 AM CDT [facility] Comment:The suggested therap eutic range for standard coumadin (warfarin) therapy is an INR of 2.0-3.0. For high-risk patients (Mechanical Mitral Valve Prosthesis, etc.), the suggested prophylactic therapeutic range is an INR of 2.5-3.5. Blood BLOOD SPECIMEN / Unknown Lab Venipuncture / Unknown 08/24/2024 8:22 AM CDT 08/24/2024 8:32 AM CDT Allison Leavitt HIGHW[address] TECHNICIAN-FACILITATOR LAB - COAGULATION O RDERABLES Final Result [facility] [address] [place] [address], [facility] [phone] * (ABNORMAL) DIFFERENTIAL MANUAL (08/24/2024 8:22 AM CDT) Only the most recent of3 resultswithin the time period is included. Neutrophil % 55 41 - 74 % 08/24/2024 9:17 AM [facility] Lymphocyte % 30 17 - 47 % 08/24/2024 9:17 AM [facility] Monocyte % 7 3 - 11 % 08/24/2024 9:17 AM [facility] Eosinophil % 5 0 - 7 % 08/24/2024 9:17 AM [facility] Basophil % 3(H) 0 - 2 % 08/24/2024 9:17 AM [facility] Neutrophil Absolute 0.94(L) 1.60 - 7.50 x10E9/L 08/24/2024 9:17 AM [facility] Lymphocyte Absolute 0.51(L) 1.00 - 4.40 x10E9/L 08/24/2024 9:17 AM [facility] Monocyte Absolute 0.12(L) 0.15 - 1.00 x10E9/L 08/24/2024 9:17 AM [facility] Eosinophil Absolute 0.09 0.00 - 0.60 x10E9/L 08/24/2024 9:17 AM [facility] Basophil Absolute 0.05 0.00 - 0.13 x10E9/L 08/24/2024 9:17 AM [facility] RBC Morphology NORMAL 08/24/2024 9:17 AM [facility] Blood BLOOD SPECIMEN / Unknown Lab Venipuncture / Unknown 08/24/2024 8:22 AM CDT 08/24/2024 8:37 AM CDT us Allison Leavitt HIGHWAY TECHNICIAN-FACILITATOR LAB - HEMATOLOGY OR DERABLES Final Result [facility] [address] [place] [address], [facility] [phone] * (ABNORMAL) CBC WITH DIFFERENTIAL (08/24/2024 8:22 AM CDT) Only the most recent of5 resultswithin the time period is included. WBC 1.7(L) 4.0 - 10.7 x10E9/L 08/24/2024 9:17 AM [facility] RBC Count 3.15(L) 3.90 - 5.20 x10E12/L 08/24/2024 9:17 AM [facility] Hemoglobin 8.6(L) 11.9 - 15.8 g/dL 08/24/2024 9:17 AM [facility] Hematocrit 27.7(L) 34.8 - 46.1 % 08/24/2024 9:17 AM [facility] MCV 87.9 80.0 - 98.0 fL 08/24/2024 9:17 AM [facility] MCH 27.3 26.7 - 33.6 pg 08/24/2024 9:17 AM [facility] MCHC 31.0(L) 31.7 - 36.3 g/dL 08/24/2024 9:17 AM [facility] RDW-CV 15.4(H) 11.3 - 14.8 % 08/24/2024 9:17 AM [facility] Platelet Count 38(L) 150 - 420 x10E9/L 08/24/2024 9:17 AM [facility] MPV 11.6(H) 7.8 - 11.4 fL 08/24/2024 9:17 AM [facility] Blood BLOOD SPECIMEN / Unknown Lab Venipuncture / Unknown 08/24/2024 8:22 AM CDT 08/24/2024 8:37 AM T us Allison Leavitt HIGHWAY TECHNICIAN-FACILITATOR LAB - HEMATOLOGY OR DERABLES Final Result [facility] [address] [place] [address], [facility] [phone] * (ABNORMAL) COMPREHENSIVE METABOLIC PANEL (08/24/2024 8:22 AM [facility]) Only the most recent of10 resultswithin the time period is included. BUN 37(H) 7 - 26 mg/dL 08/24/2024 9:06 AM [facility] Creatinine 1.64(H) 0.56 - 0.96 mg/dL 08/24/2024 9:06 AM [facility] Sodium 139 136 - 145 mmol/L 08/24/2024 9:06 AM [facility] Potassium 4.2 3.5 - 4.5 mmol/L 08/24/2024 9:06 AM [facility] Chloride 107 98 - 107 mmol/L 08/24/2024 9:06 AM [facility] CO2 25 22 - 29 mmol/L 08/24/2024 9:06 AM [facility] Glucose 261(H) 70 - 99 mg/dL 08/24/2024 9:06 AM [facility] Calcium 8.7 8.4 - 10.2 mg/dL 08/24/2024 9:06 AM [facility] Protein Total 6.8 6.0 - 8.3 g/dL 08/24/2024 9:06 AM [facility] Albumin 3.2(L) 3.4 - 5.0 g/dL 08/24/2024 9:06 AM [facility] Bilirubin Total 0.4 0.2 - 1.2 mg/dL 08/24/2024 9:06 AM [facility] Alkaline Phosphatase 177(H) 40 - 150 U/L 08/24/2024 9:06 AM [facility] ALT 24 5 - 55 U/L 08/24/2024 9:06 AM [facility] AST 27 5 - 34 U/L 08/24/2024 9:06 AM [facility] Anion Gap 7 6 - 16 08/24/2024 9:06 AM [facility] BUN/Creatinine Ratio 23 7 - 23 08/24/2024 9:06 AM [facility] Osmolality Calculated 306(H) 275 - 295 mOsm/kg 08/24/2024 9:06 AM [facility] Albumin/Globulin Ratio 0.9(L) 1.1 - 2.3 08/24/2024 9:06 AM [facility] eGFR by CKD-EPI 36(L) >=90 mL/min/1.7 3 m2 08/24/2024 9:06 AM [facility] Blood BLOOD SPECIMEN / Unknown Lab Venipuncture / Unknown 08/24/2024 8:22 AM T 08/24/2024 8:37 AM [facility] - 08/24/2024 9:06 AM [facility] Estimated Glomerular Filtration Rate (eGFR) calculated using the CKD-EPI Creatinine Equation (2020), per the National Kidney Foundation and [place] [employer]ph[employer] recommendations. Allison Leavitt HIGHWAY TECHNICIAN-FACILITATOR LAB - CHEMISTRY ORD ERABLES Final Result [facility] [address] [place] [address], [facility] [phone] * (ABNORMAL) GLUCOSE - POINT OF CARE (08/21/2024 11:23 AM [facility]) Only the most recent of23 resultswithin the time period is included. Glucose WB/POC 244(H) 70 - 99 mg/dL 08/21/2024 11:27 AM [facility] Specimen Type Arterial/C apillary 08/21/2024 11:27 AM [facility] Blood BLOOD SPECIMEN / Unknown 08/21/2024 11:23 AM CDT 08/21/2024 11:27 AM CDT Manuel Paz MD LAB - POINT OF CARE ORDERABLES Final Result [facility] [address] [place] [address], [facility] [phone] * (ABNORMAL) CBC W/O DIFFERENTIAL (08/21/2024 6:30 AM CDT) Only the most recent of5 resultswithin the time period is included. WBC 1.6(L) 4.0 - 10.7 x10E9/L 08/21/2024 7:06 AM [facility] RBC Count 3.15(L) 3.90 - 5.20 x10E12/L 08/21/2024 7:06 AM [facility] Hemoglobin 8.6(L) 11.9 - 15.8 g/dL 08/21/2024 7:06 AM [facility] Hematocrit 26.9(L) 34.8 - 46.1 % 08/21/2024 7:06 AM [facility] MCV 85.4 80.0 - 98.0 fL 08/21/2024 7:06 AM [facility] MCH 27.3 26.7 - 33.6 pg 08/21/2024 7:06 AM [facility] MCHC 32.0 31.7 - 36.3 g/dL 08/21/2024 7:06 AM [facility] RDW-CV 15.0(H) 11.3 - 14.8 % 08/21/2024 7:06 AM [facility] Platelet Count 38(L) 150 - 420 x10E9/L 08/21/2024 7:06 AM [facility] MPV 10.6 7.8 - 11.4 fL 08/21/2024 7:06 AM [facility] Blood BLOOD SPECIMEN / Unknown Lab Venipuncture / Unknown 08/21/2024 6:30 AM CDT 08/21/2024 6:54 AM CDT Nory Cash MD LAB - HEMATOLOGY ORDERABLES Fi nal Result [address] [address], [facility] [phone] * PHOSPHORUS BLOOD (08/21/2024 6:30 AM CDT) Only the most recent of5 resultswithin the time period is included. Phosphorus 4.1 2.9 - 5.1 mg/dL 08/21/2024 7:31 AM CDT [facility] Blood BLOOD SPECIMEN / Unknown Lab Venipuncture / Unknown 08/21/2024 6:30 AM CDT 08/21/2024 6:54 AM CDT Nory Cash MD LAB - CHEMISTRY ORDERABLES Fin al Result Performing Organization Address City/[facility]/ZIP Co de Phone Number [address] [address], [facility] [phone] * MAGNESIUM BLOOD (08/21/2024 6:30 AM CDT) Only the most recent of6 resultswithin the time period is included. Magnesium 1.8 1.6 - 2.6 mg/dL 08/21/2024 7:31 AM CDT [facility] Blood BLOOD SPECIMEN / Unknown Lab Venipuncture / Unknown 08/21/2024 6:30 AM CDT 08/21/2024 6:54 AM CDT Nory Cash MD LAB - CHEMISTRY ORDERABLES Fin al Result [address] [address], [facility] [phone] * MRI Lumbar Spine Wwo Contrast (08/20/2024 12:09 PM CDT) Anatomical Region Laterality Modality Spine Magnetic Resonan ce 08/20/2024 3:21 PM CDT Impressions 08/20/2024 3:32 PM CDT IMPRESSION: Degenerative changes most prominent at the level of L4-L5 as described above however without significant central canal stenosis > Interpreting Provider: Melanie Dinh MD on 08/20/2024 3:32 PM Narrative 08/20/2024 3:32 PM CDT PROCEDURE: MRI LUMBAR SPINE WWO CONTRAST, DATE/TIME OF EXAM: 08/20/2024 12:11 PM, LOCATION [facility] INDICATION: M54.9: Back pain, unspecified back location, unspecified back pain laterality, unspecified chronicity ADDITIONAL CLINICAL INFORMATION: Ordering Provider Reason For Exam: Back pain Technologist Note: Additional: COMPARISON: CT abdomen and pelvis 07/24/2024 TECHNIQUE: Lumbar spine MRI was performed without and with IV contrast, according to standard protocol. CONTRAST: GADOBUTROL 1 MMOL/ML IV SSM SO:9.5 mL FINDINGS: Minimal anterolisthesis of L4 on L5, degenerative. Mild levocurvature of the lumbar spine. Vertebral bodies are normal in height without evidence of compression fractures. There is mild edema along the superior endplate of L4 vertebral body with endplate irregularities and associated mild enhancement (image 11, series 12, series 4) secondary to endplate degenerative changes with adjacent Schmorl's node. Type II Modic endplate degenerative changes noted at the level of L4-L5. Marrow signal intensity is otherwise normal. The conus medullaris terminates at the level of L1-L2 and the distal spinal cord signal intensity is normal. No other areas of abnormal contrast enhancement noted including the thecal sac Multilevel mild disc height loss most prominent at the level of L4-L5. Mild diffuse disc bulge at the level of L4-L5 however without significant central canal stenosis. Mild narrowing of the right lateral recess. Moderate right-sided neural foramina stenosis at the level of L4-L5 mild left-sided neural foraminal stenosis at the level of L5-S1 otherwise no significant neural foramina stenosis noted.. Multilevel mild to moderate facet arthropathy most prominent at the level of L4-L5. Partially visualized splenomegaly and mild ascites. Procedure Note Melanie Dinh MD - 08/20/2024 PROCEDURE: MRI LUMBAR SPINE WWO CONTRAST, DATE/TIME OF EXAM: 08/20/2024 12:11 PM, LOCATION [facility] INDICATION: M54.9: Back pain, unspecified back location, unspecified back pain laterality, unspecified chronicity ADDITIONAL CLINICAL INFORMATION: Ordering Provider Reason For Exam: Back pain Technologist Note: Additional: COMPARISON: CT abdomen and pelvis 07/24/2024 TECHNIQUE: Lumbar spine MRI was performed without and with IV contrast, accordingto standard protocol. CONTRAST: GADOBUTROL 1 MMOL/ML IV SSM SO:9.5 mL FINDINGS: Minimal anterolisthesis of L4 on L5, degenerative. Mild levocurvature of the lumbar spine. Vertebral bodies are normal in height without evidenceof compression fractures. There is mild edema along the superior endplateof L4 vertebral body with endplate irregularities and associated mild enhancement (image 11, series 12, series 4) secondary to endplate degenerative changes with adjacent Schmorl's node. Type II Modicendplate degenerative changes noted at the level of L4-L5. Marrow signalintensity is otherwise normal. The conus medullaris terminates at the level ofL1-L2 and the distal spinal cord signal intensity is normal. No other areas of abnormal contrast enhancement noted including the thecal sac Multilevel mild disc height loss most prominent at the level of L4-L5.Mild diffuse disc bulge at the level of L4-L5 however without significant central canal stenosis. Mild narrowing of the right lateral recess. Moderate right-sided neural foramina stenosis at the level of L4-L5 mild left-sided neural foraminal stenosis at the level of L5-S1 otherwise no significant neural foramina stenosis noted.. Multilevel mild to moderate facet arthropathy most prominent at the level of L4-L5. Partially visualized splenomegaly and mild ascites. IMPRESSION: Degenerative changes most prominent at the level of L4-L5 as described above however without significant central canal stenosis > Interpreting Provider: Melanie Dinh MD on 08/20/2024 3:32 PM José Vega MD MR ORDERABLES Final Result * CULTURE BLOOD (08/20/2024 3:43 AM CDT) Only the most recent of6 resultswithin the time period is included. Culture No growth day 5 WILMER 08/25/2024 7:30 AM CDT [facility] Blood PERIPHERAL BLOOD / Unknown Lab Venipuncture / Unknown 08/20/2024 3:43 AM CDT 08/20/2024 3:50 AM CDT us Nory Cash MD LAB - MICROBIOLOGY ORDERABLES Final Result [facility] [address] [place] [address], [place] [phone] * (ABNORMAL) URINALYSIS REFLEX MICROSCOPIC REFLEX CULTURE (08/20/2024 2:14 AM CDT) Only the most recent of3 resultswithin the time period is included. Color UA Yellow Yellow, Straw 08/20/2024 2:23 AM [facility] Clarity UA Clear Clear 08/20/2024 2:23 AM [facility] Glucose UA 4+(A) Normal 08/20/2024 2:23 AM [facility] Bilirubin UA Negative Negative 08/20/2024 2:23 AM [facility] Ketone UA Negative Negative 08/20/2024 2:23 AM [facility] Specific [place] UA 1.019 1.005 - 1.030 08/20/2024 2:23 AM [facility] Blood UA Negative Negative 08/20/2024 2:23 AM [facility] pH UA 5.5 5.0 - 8.0 pH 08/20/2024 2:23 AM [facility] Protein UA Negative Negative 08/20/2024 2:23 AM [facility] Urobilinogen UA Normal Normal mg/dL 08/20/2024 2:23 AM [facility] Nitrite UA Negative Negative 08/20/2024 2:23 AM [facility] Leukocyte Esterase UA 75 MARIELENA/uL(A) Negative 08/20/2024 2:23 AM [facility] RBC UA 0-2 0 - 5 # /hpf 08/20/2024 2:23 AM [facility] WBC UA 6-10(A) 0 - 5 # /hpf 08/20/2024 2:23 AM [facility] Bacteria UA None Seen None Seen 08/20/2024 2:23 AM [facility] Squamous Epithelial Cells 0-2 0 - 5 /hpf 08/20/2024 2:23 AM CDT [facility] Hyaline Casts 0-2 0 - 2 /LPF 08/20/2024 2:23 AM CDT [facility] Reflex Status Culture to follow 08/20/2024 2:23 AM CDT [facility] Urine URINE SPECIMEN OBTAINED BY CLEAN CATCH PROCEDURE / Unknown Collection / Unknown 08/20/2024 2:14 AM CDT 08/20/2024 2:18 AM CDT José Vega MD LAB - URINALYSIS ORDER JOSE L Final Result [facility] [address] [place] [address], [place] [phone] * CULTURE URINE (08/20/2024 2:14 AM CDT) Only the most recent of2 resultswithin the time period is included. Culture Urine 10,000-50,000 CFU/mL urogenital javan WILMER 08/21/2024 5:23 AM CDT [facility] Urine URINE SPECIMEN OBTAINED BY CLEAN CATCH PROCEDURE / Unknown Collection / Unknown 08/20/2024 2:14 AM CDT 08/20/2024 2:18 AM CDT José Vega MD LAB - MICROBIOLOGY ORD ERABLES Final Result [facility] [address] [place] [address], [facility] [phone] * XR Chest 1Vw Portable (08/19/2024 9:31 PM CDT) Only the most recent of2 resultswithin the time period is included. Anatomical Region Laterality Modality Chest Digital Radiogra phy 08/20/2024 1:10 PM CDT Narrative 08/20/2024 6:54 PM CDT PROCEDURE: XR CHEST 1VW PORTABLE, DATE/TIME OF EXAM: 08/19/2024 9:43 PM, LOCATION [facility] INDICATION: R60.9: Edema, unspecified type ADDITIONAL CLINICAL INFORMATION: Ordering Provider Reason For Exam: infectious work up COMPARISON: Chest radiograph from 07/31/2024. FINDINGS/IMPRESSION: Anterior cervical spine fusion hardware is again seen. Bilateral lower lung mild dependent atelectasis. There is no pleural effusion or pneumothorax. The cardiomediastinal silhouette is normal. The visible bony thorax is intact. The report was drafted by Lashonda Whitmore MD (director of residential services) 08/20/2024 1:10 PM. Tereso Guerrero have personally reviewed and interpreted this examination/study. > Interpreting Provider: Tereso White on 08/20/2024 6:54 PM Procedure Note Tereso White MD - 08/20/2024 PROCEDURE: XR CHEST 1VW PORTABLE, DATE/TIME OF EXAM: 08/19/2024 9:43PM, LOCATION [facility] INDICATION: R60.9: Edema, unspecified type ADDITIONAL CLINICAL INFORMATION: Ordering Provider Reason For Exam: infectious work up COMPARISON: Chest radiograph from 07/31/2024. FINDINGS/IMPRESSION: Anterior cervical spine fusion hardware is again seen. Bilateral lower lung mild dependent atelectasis. There is no pleural effusion or pneumothorax. The cardiomediastinal silhouette is normal. The visible bony thorax is intact. The report was drafted by Lashonda Whitmore MD (director of residential services) 08/20/2024 1:10 PM. Tereso Guerrero have personally reviewed and interpreted this examination/study. > Interpreting Provider: Tereso White on 08/20/2024 6:54 PM Nory Cash MD DIAGNOSTIC IMAGING ORDERABLES Final Result * (ABNORMAL) AMMONIA (08/19/2024 4:59 PM CDT) Only the most recent of2 resultswithin the time period is included. Ammonia 98(H) <=72 umol/L 08/19/2024 5:18 PM CDT [facility] Blood BLOOD SPECIMEN / Unknown Venipuncture / Unknown 08/19/2024 4:59 PM CDT 08/19/2024 5:04 PM CDT us Darlene Alvarez HIGHWAY TECHNICIAN-FACILITATOR LAB - CHEMISTRY ELLA PEREZ Final Result [facility] [address] [place] [address], [place] [phone] * URINE DRUG SCREEN IMMUNOASSAY (08/01/2024 6:45 PM CDT) [facility] Amphetamines Screen Urine Negative Negative: < 1000 ng/mL 08/01/2024 7:20 PM CDT [facility] Barbiturates Screen Urine Negative Negative: < 200 ng/mL 08/01/2024 7:20 PM CDT [facility] Benzodiazepine Screen Urine Negative Negative: < 200 ng/mL 08/01/2024 7:20 PM CDT [facility] Opiates Urine Negative Negative: < 300 ng/mL 08/01/2024 7:20 PM CDT [facility] Cocaine Metabolites Urine Negative Negative: < 300 ng/mL 08/01/2024 7:20 PM CDT [facility] Phencyclidine Screen Urine Negative Negative: < 25 ng/ml 08/01/2024 7:20 PM CDT [facility] Cannabinoids Screen Urine Negative Negative: <50 ng/mL 08/01/2024 7:20 PM CDT [facility] Methadone Screen Urine Negative Negative: < 300 ng/mL 08/01/2024 7:20 PM CDT [facility] Fentanyl Screen Urine Negative Negative: <1.5 ng/mL 08/01/2024 7:20 PM T [facility] Urine URINE / Unknown Collection / Unknown 08/01/2024 6:45 PM CDT 08/01/2024 6:56 PM CDT Narrative [facility] - 08/01/2024 7:20 PM CDT The Urine Toxicology Screening Panel does not screen for Propoxyphene, Meprobamate, Carisoprodol, Trazodone, uicd-nbi-bzqdinn medications and/or volatiles (Acetone, Isopropanol, Methanol or Ethylene Glycol). Ethanol, Salicylate, Acetaminophen, Tricyclic Antidepressants and several therapeutic drugs may be individually assayed in serum or plasma specimen. Toxicology testing by the [facility] is an aid to medical diagnosis and treatment of patients. No documented chain of custody was maintained. Results are intended to be used for clinical purposes only. us Jorge Tran MD LAB - URINE CHEMISTRY ORDERAB LES Final Result [facility] [place] [address], [facility] [phone] * Paracentesis (07/31/2024 5:35 PM CDT) Narrative Sivakumar Max MD - 07/31/2024 5:35 PM CDT Sivakumar Max MD 08/01/2024 12:10 AM Paracentesis Date/Time: 07/31/2024 5:35 PM Performed by: Travis Hampton MD Authorized by: Sivakumar Max MD Consent: Consent obtained: Emergent situation [place] protocol: Patient identity confirmed: Verbally with patient Pre-procedure details: Procedure purpose: Diagnostic Preparation: Patient was prepped and draped in usual sterile fashion Anesthesia: Anesthesia method: Local infiltration Local anesthetic: Lidocaine 1% w/o epi Procedure details: Needle gauge: 20 Ultrasound guidance: yes Puncture site: L lower quadrant Fluid removed amount: None- pocket too deep Post-procedure details: Procedure completion: Procedure terminated electively by provider Comments: Pocket identified on US. Using US guidance, attemped paracentesis, however unable to reach fluid pocket with needle, likely limited d/t large amount of SQ tissue. Procedure aborted us Sivakumar Mxa MD PROCEDURE/MINOR SURGIC AL ORDERABLES Final Result * TROPONIN-I HIGH SENSITIVE REFLEX 1HOUR (07/31/2024 4:53 PM CDT) Only the most recent of3 resultswithin the time period is included. Troponin I High Sensitive 6 <=14 ng/L 07/31/2024 5:38 PM CDT [facility] Delta Troponin I HS 07/31/2024 5:38 PM CDT [facility] Comment:Delta value intentio yue not calculated. Baseline to 1 hour specimen collection interval exceeded. Blood BLOOD SPECIMEN / Unknown Venipuncture / Unknown 07/31/2024 4:53 PM CDT 07/31/2024 5:04 PM CDT Sivakumar Max MD LAB - CHEMISTRY ORDERA BLES Final Result Performing Organization Address [facility]/ZIP Co de Phone Number [address] [address], [place] [phone] * TSH REFLEX FREE T4 (07/31/2024 4:53 PM CDT) TSH 4.193 0.350 - 4.940 uIU/mL 07/31/2024 6:15 PM CDT [facility] Blood BLOOD SPECIMEN / Unknown Venipuncture / Unknown 07/31/2024 4:53 PM CDT 07/31/2024 5:04 PM CDT Sivakumar Max MD LAB - CHEMISTRY ORDERA BLES Final Result Performing Organization Address [facility] Co de Phone Number [address] [address], [place] [phone] * TROPONIN-I HIGH SENSITIVE BASELINE + 1HR (07/31/2024 2:20 PM CDT) Only the most recent of3 resultswithin the time period is included. Pathologist [facility] Troponin I High Sensitive 6 <=14 ng/L 07/31/2024 3:03 PM CDT [facility] Blood BLOOD SPECIMEN / Unknown Venipuncture / Unknown 07/31/2024 2:20 PM CDT 07/31/2024 2:29 PM CDT Sivakumar Max MD LAB - CHEMISTRY ORDERA BLES Final Result Performing Organization Address [facility] Co de Phone Number [address] [address], [place] [phone] * CARDIAC EKG ORDER (07/26/2024 10:55 AM CDT) Narrative 07/26/2024 10:55 AM CDT Ordered by an unspecified provider. us Scanned Document CARDIAC SERVICES ORDERABLES Fin al Result * (ABNORMAL) URINALYSIS W/MICROSCOPIC REFLEX TO CULTURE (07/25/2024 1:00 AM [facility]) Color UA Yellow Yellow, Straw 07/25/2024 1:17 AM [facility] Clarity UA Clear Clear 07/25/2024 1:17 AM [facility] Glucose UA 3+(A) Normal 07/25/2024 1:17 AM [facility] Bilirubin UA Negative Negative 07/25/2024 1:17 AM [facility] Ketone UA Negative Negative 07/25/2024 1:17 AM [facility] Specific [place] UA 1.048(H) 1.005 - 1.030 07/25/2024 1:17 AM [facility] Blood UA 1+(A) Negative 07/25/2024 1:17 AM [facility] pH UA 5.5 5.0 - 9.0 pH 07/25/2024 1:17 AM [facility] Protein UA 2+(A) Negative 07/25/2024 1:17 AM [facility] Urobilinogen UA Normal Normal mg/dL 07/25/2024 1:17 AM [facility] Nitrite UA Negative Negative 07/25/2024 1:17 AM [facility] Leukocyte Esterase UA 25 MARIELENA/uL(A) Negative 07/25/2024 1:17 AM [facility] RBC UA 3-5 0 - 5 # /hpf 07/25/2024 1:17 AM [facility] WBC UA 0-5 0 - 5 # /hpf 07/25/2024 1:17 AM [facility] Bacteria UA None Seen None Seen 07/25/2024 1:17 AM [facility] Squamous Epithelial Cells 3-5 0 - 5 /hpf 07/25/2024 1:17 AM [facility] Urine URINE SPECIMEN OBTAINED BY CLEAN CATCH PROCEDURE / Unknown Collection / Unknown 07/25/2024 1:00 AM CDT 07/25/2024 1:03 AM CDT Shanta Castelan PA-C LAB - URINALYSIS ORDERABLES F inal Result [facility] [place] [address], [facility] [phone] * CT ABDOMEN PELVIS W CONTRAST (07/24/2024 5:32 PM CDT) Anatomical Region Laterality Modality Abdomen, Pelvis Computed Tomogra phy 07/24/2024 5:48 PM CDT Impressions 07/24/2024 11:55 PM CDT Impression: 1.Cirrhotic morphology of the liver, with sequela of portal hypertension, including paraesophageal and perigastric varices, recanalized umbilical vein, small volume ascites. 2.Right hemicolon mild wall thickening may be seen with hepatic colopathy. Report drafted by Claude Richards (resident) I, Sandor Johnson MD have personally reviewed and interpreted this examination/study. > Interpreting Provider: Sandor Johnson MD on 07/24/2024 11:55 PM Narrative 07/24/2024 11:55 PM CDT Procedure Information DATE: 07/24/2024 5:33 PM EXAMINATION: Computed tomography (CT) of the abdomen and pelvis with contrast TECHNIQUE: CT of the abdomen and pelvis was performed following the uneventful administration of 100 mL of Isovue 370 intravenous contrast according to standard protocol. Clinical Information HISTORY: R10.32: Left lower quadrant abdominal pain COMPARISON: CT abdomen pelvis dated 06/06/2024 Findings Lower Chest: Partially imaged mediastinal calcified lymph nodes. Varices are seen adjacent to distal esophagus. Hepatobiliary: Mildly nodular and shrunken appearance of the liver may be seen with cirrhosis. Status post cholecystectomy. No intrahepatic or extra hepatic biliary dilatation. Pancreas: Normal. Spleen: Splenomegaly, measuring up to 18.0 cm. Kidneys: No solid renal mass, hydronephrosis or visualized nephrolithiasis. Adrenals: Normal. Retroperitoneum: No retroperitoneal lymphadenopathy or hematoma. Gastrointestinal: Mild colonic wall thickening of the right hemicolon may be seen with hepatic colopathy. Appendix: Normal. Mesentery: Small volume ascites. No free air or mesenteric lymphadenopathy. Pelvic Structures: Normal. Vasculature: Multiple vascular collaterals, including recanalized umbilical vein, as well as varices adjacent to the gastric fundus and adjacent to distal esophagus. Bones: The visible osseous structures are intact. Soft tissues: Normal. Procedure Note Sandor Johnson MD - 07/24/2024 Procedure Information DATE: 07/24/2024 5:33 PM EXAMINATION: Computed tomography (CT) of the abdomen and pelvis with contrast TECHNIQUE: CT of the abdomen and pelvis was performed following the uneventful administration of 100 mL of Isovue 370 intravenous contrast according to standard protocol. Clinical Information HISTORY: R10.32: Left lower quadrant abdominal pain COMPARISON: CT abdomen pelvis dated 06/06/2024 Findings Lower Chest: Partially imaged mediastinal calcified lymph nodes. Varices are seen adjacent to distal esophagus. Hepatobiliary: Mildly nodular and shrunken appearance of the liver may be seen with cirrhosis. Status post cholecystectomy. No intrahepatic or extra hepatic biliary dilatation. Pancreas: Normal. Spleen: Splenomegaly, measuring up to 18.0 cm. Kidneys: No solid renal mass, hydronephrosis or visualized nephrolithiasis. Adrenals: Normal. Retroperitoneum: No retroperitoneal lymphadenopathy or hematoma. Gastrointestinal: Mild colonic wall thickening of the right hemicolon may be seen with hepatic colopathy. Appendix: Normal. Mesentery: Small volume ascites. No free air or mesenteric lymphadenopathy. Pelvic Structures: Normal. Vasculature: Multiple vascular collaterals, including recanalized umbilical vein, as well as varices adjacent to the gastric fundus and adjacent to distal esophagus. Bones: The visible osseous structures are intact. Soft tissues: Normal. Impression: 1.Cirrhotic morphology of the liver, with sequela of portalhypertension, including paraesophageal and perigastric varices, recanalized umbilical vein, small volume ascites. 2.Right hemicolon mild wall thickening may be seen with hepaticcolopathy. Report drafted by Claude Richards (resident) Sandor Guerrero MD have personally reviewed and interpreted this examination/study. > Interpreting Provider: Sandor Johnson MD on 511:55 PM Shanta Castelan PA-C CT ORDERABLES Final Result * XR CHEST 2VW (07/24/2024 1:13 PM CDT) Anatomical Region Laterality Modality Chest Digital Radiogra phy 07/24/2024 2:01 PM CDT Impressions 07/24/2024 2:15 PM CDT IMPRESSION: No acute pulmonary process. > Dictated by Ryder Silver DO (Milling Machine Operator), 07/24/2024 2:01 PM. IDelia MD have personally reviewed and interpreted this examination/study. > Interpreting Provider: Delia Boles MD on 07/24/2024 2:15 PM Narrative 07/24/2024 2:15 PM CDT PROCEDURE: XR CHEST 2VW, DATE/TIME OF EXAM: 07/24/2024 1:19 PM, LOCATION [facility] INDICATION: R06.02: Shortness of breath ADDITIONAL CLINICAL INFORMATION: Ordering Provider Reason For Exam: r/o consolidation vs effusion vs other COMPARISON: Chest x-ray 06/06/2024 FINDINGS: Calcified granuloma in the right mid to upper lung zone. There is no focal consolidation, pleural effusion, or pneumothorax. The cardiomediastinal silhouette is normal. The visible bony thorax is intact. Procedure Note Delia Boles MD - 07/24/2024 PROCEDURE: XR CHEST 2VW, DATE/TIME OF EXAM: 07/24/2024 1:19 PM, LOCATION [facility] INDICATION: R06.02: Shortness of breath ADDITIONAL CLINICAL INFORMATION: Ordering Provider Reason For Exam: r/o consolidation vs effusion vsother COMPARISON: Chest x-ray 06/06/2024 FINDINGS: Calcified granuloma in the right mid to upper lung zone. There is nofocal consolidation, pleural effusion, or pneumothorax. The cardiomediastinal silhouette is normal. The visible bony thorax is intact. IMPRESSION: No acute pulmonary process. > Dictated by Ryder Silver DO (Milling Machine Operator), 07/24/2024 2:01 PM. Delia Guerrero MD have personally reviewed and interpreted this examination/study. > Interpreting Provider: Delia Boles MD on 07/24/2024 2:15 PM Shanta Castelan PA-C DIAGNOSTIC IMAGING ORDERABLES Final Result * LIPASE BLOOD (07/24/2024 12:23 PM CDT) Pathologist [facility] Lipase 59 8 - 78 U/L 07/24/2024 12:52 PM CDT [facility] Blood BLOOD SPECIMEN / Unknown Venipuncture / Unknown 07/24/2024 12:23 PM CDT 07/24/2024 12:37 PM CDT Narrative [facility] - 07/24/2024 12:52 PM CDT Lipase results from the Coleman Alinity analyzer may not be comparable with other methodologies. Shanta Castelan PA-C LAB - CHEMISTRY ORDERABLES Fi nal Result Performing Organization Address City/[facility]/ZIP Co de Phone Number [facility] [address] [place] [address], [facility] [phone] * EKG 12-LEAD (07/24/2024 12:20 PM CDT) Only the most recent of2 resultswithin the time period is included. Pathologist [facility] Ventricular Rate 84 BPM [facility]USE Atrial Rate 84 BPM [facility] MUSE P-R Interval 158 ms [facility] MUSE QRS Duration ms 82 ms [facility] MUSE Q-T Interval ms 400 ms [facility] MUSE QTC Calculation (Bezet) 472 ms [facility] MUSE Calculated P [place] 44 degrees [facility] Calculated R [place] 17 degrees [facility] Calculated T [place] 26 degrees [facility] Interpretation EKG NORMAL SINUS RHYTHM CANNOT RULE OUT ANTERIOR INFARCT (CITED ON OR BEFORE 17-JUL-2024) ABNORMAL ECG WHEN COMPARED WITH ECG OF 17-JUL-2024 00:03, NO SIGNIFICANT CHANGE WAS FOUND Confirmed by NICHOL WOMACK, LA NENA ([id number]) on 07/26/2024 8:54:19 AM [facility] MUSE 07/24/2024 12:2 0 PM CDT 07/26/2024 8:54 AM CDT Shanta Castelan PA-C ECG ORDERABLES Edited Result - Final Performing Organization Address City/[facility]/ZIP Co de Phone Number [facility] MUSE * (ABNORMAL) BLOOD GASES PRIYANK + COOX PANEL (07/16/2024 11:31 PM [facility]) pH Venous 7.38 7.32 - 7.42 pH 07/16/2024 11:45 PM [facility] pO2 Venous 34(L) 35 - 40 mmHg 07/16/2024 11:45 PM [facility] pCO2 Venous 50 40 - 50 mmHg 07/16/2024 11:45 PM [facility] HCO3 Venous 29.6 20 - 30 mmol/L 07/16/2024 11:45 PM [facility] Base Excess Venous 3.8(H) -2.0 - 2.0 mmol/L 07/16/2024 11:45 PM [facility] Oxyhemoglobin Venous 57.4 % 06/21 11:45 PM [facility] Deoxyhemoglobin (HHB) Venous % 40.5 % 07/16/2024 11:45 PM [facility] Methemoglobin <0.8 0.0 - 2.0 % 07/16/2024 11:45 PM [facility] Carboxyhemoglobin 2.1(H) 0.0 - 2.0 % 2024 11:45 PM [facility] O2 Content Venous 7.9 Interpret within clinical context ml/dL 07/16/2024 11:45 PM [facility] Hemoglobin by COOX 9.8(L) 12.0 - 15.6 g/dL 07/16/2024 11:45 PM [facility] O2 Saturation Venous 59(L) >=70 % 06/21 11:45 PM [facility] FI O2 Mixed Venous 21.0 % 2024 11:45 PM [facility] Blood BLOOD SPECIMEN / Unknown Venipuncture / Unknown 07/16/2024 11:31 PM CDT 07/16/2024 11:40 PM [facility] - 07/16/2024 11:45 PM [facility] Carboxyhemoglobin Normal Concentration: Non-smokers: 0-2%; Smokers: 0-9%; Toxic: >20% Pete Bower MD LAB - BLOOD GASES ORDERABLES Final Result [facility] [address] [place] [address], [place] [phone] * HYDROXYBUTYRATE BETA (07/16/2024 11:31 PM CDT) Beta-Hydroxybu tyrate <0.50 <0.50 mmol/L 07/17/2024 12:12 AM CDT [facility] Blood BLOOD SPECIMEN / Unknown Venipuncture / Unknown 07/16/2024 11:31 PM CDT 07/16/2024 11:43 PM CDT Pete Bower MD LAB - CHEMISTRY ORDERABLES Fi nal Result Performing Organization Address [facility]/ZIP Co de Phone Number [address] [address], [place] [phone] from Last 3 Months Insurance [place] [address] [facility] MEDICARE ADV HMO & PPO MEDICAID - OUT OF STATE Advance Directives * Full Code (Latest Code Status on File) Date Activated Date Inactivated Comments 08/19/2024 7:57 PM 08/21/2024 4:31 PM * Full Code Date Activated Date Inactivated Comments 07/31/2024 5:31 PM 08/03/2024 5:19 PM * Full Code Date Activated Date Inactivated Comments 06/20/2024 11:00 AM 06/22/2024 5:03 PM * Full Code Date Activated Date Inactivated Comments 06/06/2024 12:53 PM 06/11/2024 4:22 PM * Full Code Date Activated Date Inactivated Comments 05/03/2024 7:21 PM 05/04/2024 8:23 PM Care Teams Churn Operator Margarine Relationship Specialty Start Date End Date Kasey Williamson DO [address] [place] [address] PCP - General Family Medicine 12/27/23
--- OUTSIDE RECORDS SUMMARY | 2024-10-01 18:26 | XMS_ITS | Encounter Summary ---
Author Organization [facility] Address [address] [place] [address] Phone Care Team Providers Care Shake Out Worker Name Role Phone Vaughn Bradshaw MD Primary Care Provider [phone] Claudia Horn FIRE OBSERVER Unavailable Vicenta Raymond DO Unavailable [phone] Gus Chowdary MD Unavailable Kasey Williamson DO Primary Care Provider [phone] Virginie Reyes RN Unavailable Unavailable Virginie Reyes RN Unavailable Unavailable Virginie Reyes RN Unavailable Unavailable Kelley Lopez FIRE OBSERVER, PARTY PLAN DEMONSTRATOR Unavailable [phone] Reason for Visit * Reason Comments Medication Refill Encounter Details Date Type Department Care Team (Late st Contact Info) Description 06/18/2023 Refill [facility] [address] [place] [address] Vaughn Bradshaw MD [address] [place] [address] Medication Refill Social History Tobacco Use Types Packs/Day Years Used Date Smoking Tobacco: Never Smokeless Tobacco: Never Alcohol Use Standard Drinks/Week Comments No 0 (1 standard drink = 0.6 oz pur e alcohol) [facility] Utilities Answer Date Recorded In the past 12 months has star e electric, gas, oil, or water company threatened to shut off services in your home? Yes 04/27/2023 Social Connection and Isolation Panel Answer Date Recorded In a typical week, how many times do you talk on the phone with family, friends, or neighbors? More than three times a week 04/27/2023 How often do you get togethe r with friends or relatives? More than three times a week 04/27/2023 How often do you attend chur ch or jehovah's witness services? Never 04/27/2023 Do you belong to [...] Total Score - Questions 1-9 2 04/2023 [facility] of Occupat ional Health - Occupational Stress [...] slept in a mcfp (including now)? No 04/27/2023 Education Answer Date [...] removed from med list on 05/04/23 Kaia MCKINNEY Requested Prescriptions Pending Prescriptions Disp Refills Rizatriptan [...] Visit Monae Jorgensen APRN, [facility] 03/23/23 Office Visit Monae Jorgensen APRN, PARTY PLAN DEMONSTRATOR [facility] 03/01/23 Office Visit Monae Jorgensen APRN, [facility] [place] 12/07/22 Office Visit Vaughn Bradshaw MD [facility] 09/17/22 Office Visit Vaughn Bradshaw, MD [facility] 08/06/22 Office Visit Vaughn Bradshaw, MD [facility] 07/06/22 Office Visit Vaughn Bradshaw, MD [facility] 05/27/22 Office Visit Vivian Tucker APRN, [facility] [place] 02/03/22 Office Visit Vaughn Bradshaw, MD [facility] 12/16/21 Office Visit Vaughn Bradshaw, MD [facility] Showing recent visits within past 730 days and meeting all other requirements Future Appointments Date Type Provider Dept 08/19/23 Appointment Vaughn Bradshaw, MD [facility] Showing future appointments within next [...] Dept 05/04/23 Office Visit Monae Jorgensen APRN, PARTY PLAN DEMONSTRATOR [facility] 03/23/23 Office Visit Monae Jorgensen APRN, PARTY PLAN DEMONSTRATOR [facility] 03/01/23 Office Visit Monae Jorgensen APRN, PARTY PLAN DEMONSTRATOR [facility] [place] 12/07/22 Office Visit Vaughn Bradshaw MD [facility] 09/17/22 Office Visit Vaughn Bradshaw, MD [facility] 08/06/22 Office Visit Vaughn Bradshaw, MD [facility] 07/06/22 Office Visit Vaughn Bradshaw, MD [facility] Showing recent visits within past 365 days and meeting all other requirements Future Appointments Date Type Provider Dept 08/19/23 Appointment Vaughn Bradshaw, MD [facility] Showing future appointments within next 90 days and meeting all other requirements Passed - Patient less than 65 years of age for Cetirizine or Levocetirizine documented in this encounter Plan of Treatment Upcoming Encounters Date Type Department Care Team (Late st Contact Info) Description 10/19/2024 10:00 AM CDT Office Visit [facility] [address] [place] [address] Kasey Williamson, DO 2 [facility] [address] [place] [address] 11/02/2024 10:20 AM CDT Office Visit [facility] [address] [place] [address] Kasey Williamson, DO 2 [facility] [address] [place] [address] documented as of this encounter Visit Diagnoses Diagnosis Other migraine without status migrainosus, not intractable documented in this encounter Additional Health Concerns Infection Onset Date Last Indicated Resolved Time COVID - 19 11/15/202311/15/2023 11/15/2023 11:4 7 PM CDT [facility] 08/18/2024 08/18/2024 Assessment Noted Time PHQ-9 Depression Total Score: 2 03/23/19 8:19 AM PROFESSOR OF GERMAN documented as of this encounter Care Teams Shake Out Worker Relationship Specialty Start Date End Date Vaughn Bradshaw MD PCP - General Family Medicine 05/18/18 08/26/23 Kasey Williamson DO [address] [facility] [address] [place] [address] PCP - General Family Medicine 09/14/23 Claudia Horn APRN [address] [place] [address] Advanced Practice Nurse 08/16/18 Vicenta Raymond DO [facility] [address] [place] [address] Consulting Physician Obstetrics & Gynecology 09/25/21 Gus Chowdary MD [address]2 [facility] [address] [place] [address] Consulting Physician Colon and Rectal Surgery 07/23/22 Virginie Reyes, RN [place] Nurse Freight Inspector 09/14/23 09/14/23 Virginie Reyes, RN [place] Nurse Freight Inspector 11/19/23 11/29/23 Virginie Reyes, RN [place] Nurse Freight Inspector 12/07/23 05/15/24 Kelley Lopez, FIRE OBSERVER, PARTY PLAN DEMONSTRATOR [address] [facility] [address] [place] [address] Nurse Practitioner Advanced Practice Nurse 12/09/23 02/22/24 documented as of this encounter
--- OUTSIDE RECORDS SUMMARY | 2024-10-01 18:26 | XMS_ITS | Encounter Summary ---
Author Organization [facility] Address [address] [place] [address] Phone Care Team Providers Care Field Human Resources Manager Name Role Phone Vaughn Bradshaw MD Primary Care Provider [phone] Claudia Horn TUBE PUSHER Unavailable Vicenta Raymond DO Unavailable [phone] Gus Chowdary MD Unavailable Kasey Williamson DO Primary Care Provider [phone] Virginie Reyes RN Unavailable Unavailable Virginie Reyes RN Unavailable Unavailable Virginie Reyes RN Unavailable Unavailable Kelley Lopez TUBE PUSHER, INSTRUCTIONAL WRITER Unavailable [phone] Reason for Visit * Reason Comments Medication Refill Encounter Details Date Type Department Care Team (Late st Contact Info) Description 06/19/2023 Refill [facility] [address] [place] [address] Vaughn Bradshaw MD [address] [place] [address] Medication Refill Social History Tobacco Use Types Packs/Day Years Used Date Smoking Tobacco: Never Smokeless Tobacco: Never Alcohol Use Standard Drinks/Week Comments No 0 (1 standard drink = 0.6 oz pur e alcohol) [facility] Utilities Answer Date Recorded In the past [...] any clubs o r organizations such as faith groups, unions, fraternal or athletic groups, or [...] Total Score - Questions 1-9 2 04/2023 [facility] of Occupat ional Health - Occupational Stress [...] place to sleep or slept in a custodial (including now)? No 04/27/2023 Education Answer Date [...] [facility] [place] [address] [place] [address] Kasey Williamson, DO [address] [facility] [place] [address] 11/02/2024 10:20 AM CDT Office Visit [facility] [address] [facility] [place] [address] Kasey Williamson, DO 2 [address] [facility] [place] [address] documented as of this encounter Visit Diagnoses Diagnosis Other migraine without status migrainosus, not intractable documented in this encounter Additional Health Concerns Infection Onset Date Last Indicated Resolved Time COVID - 19 11/15/2023 11/15/2023 11/15/2023 11:4 7 PM CDT VRE 08/18/2024 08/18/2024 Assessment Noted Time PHQ-9 Depression Total Score: 2 03/23/19 8:19 AM PROPERTY PORTFOLIO OFFICER documented as of this encounter Care Teams Field Human Resources Manager Relationship Specialty Start Date End Date Vaughn Bradshaw MD PCP - General Family Medicine 05/18/18 08/26/23 Kasey Williamson DO [address] [address] PCP - General Family Medicine 09/14/23 Claudia Horn APRN [address] [place] [address] Advanced Practice Nurse 08/16/18 Vicenta Raymond DO ONE [facility]ESSION[facility] [address] [place] [address] Consulting Physician Obstetrics & Gynecology 09/25/21 Gus Chowdary MD #[address] [facility] [address] [place] [address] Consulting Physician Colon and Rectal Surgery 07/23/22 Virginie Reyes, RN [place] Nurse Tube Blower 09/14/23 09/14/23 Virginie Reyes, RN [place] Nurse Tube Blower 11/19/23 11/29/23 Virginie Reyes, RN [place] Nurse Tube Blower 12/07/23 05/15/24 Kelley Lopez, TUBE PUSHER, INSTRUCTIONAL WRITER [address] [place] [address] Nurse Practitioner Advanced Practice Nurse 12/09/23 02/22/24 documented as of this encounter
--- OUTSIDE RECORDS SUMMARY | 2024-10-01 18:26 | XMS_ITS | Encounter Summary ---
Author Organization [facility] Address [address] [place] [address] Phone Care Team Providers Care Aluminum Boat Assembly Supervisor Name Role Phone Vaughn Bradshaw MD Primary Care Provider [phone] Claudia Horn NET APPLICATIONS DEVELOPER Unavailable [phone] Vicenta Raymond DO Unavailable [phone] Gus Chowdary MD Unavailable Kasey Williamson DO Primary Care Provider [phone] Virginie Reyes RN Unavailable Unavailable Virginie Reyes RN Unavailable Unavailable Virginie Reyes RN Unavailable Unavailable Kelley Lopez NET APPLICATIONS DEVELOPER, HYDRODYNAMICS PROFESSOR Unavailable [phone] Reason for Visit * Reason Onset Date Comments Cough 04/10/2021 Encounter Details Date Type Department Care Team (Late st Contact Info) Description 04/10/2021 Nurse Triage [facility] - [facility] [address]2 [place] [address] Vaughn Brasdhaw MD #1 [place] [address] Cough Social History Tobacco Use Types Packs/Day [...] Coronavirus / COVID-19? Yes 03/31/2021 8:02 AM BEAVER TRAPPER documented as of this encounter Miscellaneous Notes * Telephone Encounter - Kaia Rodas RN - 04/11/2021 8:45 AM CST SHIRA Thank You, Kaia RN ER TRAPPER * Telephone Encounter - Kaia Rodas RN [...] causes Protocols used: CORONAVIRUS (COVID-19) DIAGNOSED OR [id number]-N-GO ER TRAPPER * Telephone Encounter - Kaia Rodas RN - 04/10/2021 9:42 AM CSTFrom: Ngozi Nascimento To: Dr. Soledad Bradshaw Sent: 04/10/2021 9:09 AM BEAVER TRAPPER Subject: Possible covid pneumonia What should I do? I am having major coughing spells throughout the day. I woke up feeling like I have a ton of crap in my chest. Back is raw from coughing. Chest hurts from coughing. Could it be pneumonia? Should I go to ER or what. I feel horrible. ER TRAPPER documented in this encounter Plan of Treatment Upcoming Encounters Date Type Department Care Team (Late st Contact Info) Description 10/19/2024 10:00 AM CDT Office Visit [facility] [address]2 [place] [address] Kasey Williamson, DO [address] [address] 11/02/2024 10:20 AM CDT Office Visit [facility] [address] [place] [address] Kasey Williamson, DO [address] [address] documented as of this encounter Visit Diagnoses Not on filedocumented in this encounter Additional Health Concerns Infection Onset Date Last Indicated Resolved Time COVID - 19 Confirmed 03/31/2021 03/31/2021 022 12:16 AM BEAVER TRAPPER COVID - 19 01/14/2022 01/14/2022 01/15/2022 7:59 AM CDT Respiratory Rule-Out 01/14/2022 01/14/2022 022 8:08 AM CDT COVID - 19 11/15/2023 11/15/2023 11/15/2023 11:4 7 PM CDT VRE 08/18/2024 08/18/2024 Assessment Noted Time PHQ-9 Depression Total Score: 0 10/04/19 21 9:00 AM CDT documented as of this encounter Care Teams Aluminum Boat Assembly Supervisor Relationship Specialty Start Date End Date Vaughn Bradshaw MD PCP - General Family Medicine 05/18/18 08/26/23 Kasey Williamson DO 2 [facility] [address] [place] [address] PCP - General Family Medicine 09/14/23 Claudia Horn APRN [address] [place] [address] Advanced Practice Nurse 08/16/18 Vicenta Raymond DO ONE PROFESSIONAL [facility] [address] [place] [address] Consulting Physician Obstetrics & Gynecology 09/25/21 Gus Chowdary MD #2 [facility] [address] [place] [address] Consulting Physician Colon and Rectal Surgery 07/23/22 Virginie Reyes, RN [place] Nurse Integrative Medicine Physician 09/14/23 09/14/23 Virginie Reyes, RN [place] Nurse Integrative Medicine Physician 11/19/23 11/29/23 Virginie Reyes, RN [place] Nurse Integrative Medicine Physician 12/07/23 05/15/24 Kelley Lopez APRN, HYDRODYNAMICS PROFESSOR #2 [facility] [address] [place] [address] Nurse Practitioner Advanced Practice Nurse 12/09/23 02/22/24 documented as of this encounter
--- OUTSIDE RECORDS SUMMARY | 2024-10-01 18:26 | XMS_ITS | Encounter Summary ---
Author Organization [facility] Address [address] [place] [address] Phone Care Team Providers Care International Student Counselor Name Role Phone Vaughn Bradshaw MD Primary Care Provider [phone] Claudia Horn MANAGED SERVICES SALES CONSULTANT Unavailable Vicenta Raymond DO Unavailable [phone] Gus Chowdary MD Unavailable Kasey Williamson DO Primary Care Provider [phone] Virginie Reyes RN Unavailable Unavailable Virginie Reyes RN Unavailable Unavailable Virginie Reyes RN Unavailable Unavailable Kelley Lopez MANAGED SERVICES SALES CONSULTANT, TARGET DEVELOPER Unavailable [phone] Reason for Visit * Reason Comments Medication Refill Encounter Details Date Type Department Care Team (Late st Contact Info) Description 07/15/2023 Refill [facility] #2 [place] [address] Vaughn Bradshaw MD #1 [place] [address] Medication Refill Social History Tobacco Use Types Packs/Day Years Used Date Smoking Tobacco: Never Smokeless Tobacco: Never Alcohol Use Standard Drinks/Week Comments No 0 (1 standard drink = 0.6 oz pur e alcohol) [facility] Utilities Answer Date Recorded In the [...] any clubs o r organizations such as rastafarian groups, unions, fraternal or athletic groups, or [...] Total Score - Questions 1-9 2 04/2023 [facility] [place] of Occupat ional Health - Occupational Stress [...] place to sleep or slept in a assisted (including now)? No 04/27/2023 Education Answer Date [...] 07/09/2023 90 45 Tablet Vaughn Bradshaw MD [facility] #... documented in this encounter Plan of Treatment Upcoming Encounters Date Type Department Care Team (Late st Contact Info) Description 10/19/2024 10:00 AM CDT Office Visit [facility] [place] [address]2 [place] [address] Kasey Williamson, 2 [address] [facility] [address] [place] [address] 11/02/2024 10:20 AM CDT Office Visit [facility] [address]2 [place] [address] Kasey Williamson DO 2 [facility] [address] [address] documented as of this encounter Visit Diagnoses Not on filedocumented in this encounter Additional Health Concerns Infection Onset Date Last Indicated Resolved Time COVID - 19 11/15/2023 11/15/2023 11/15/2023 11:4 7 PM CDT VRE 08/18/2024 08/18/2024 Assessment Noted Time PHQ-9 Depression Total Score: 2 03/23/19 24 8:19 AM PROFILER OPERATOR documented as of this encounter Care Teams International Student Counselor Relationship Specialty Start Date End Date Vaughn Bradshaw MD PCP - General Family Medicine 05/18/18 08/26/23 Kasey Williamson DO 2 [facility] [address] [place] [address] PCP - General Family Medicine 09/14/23 Claudia Horn APRN [address] [place] [address] Advanced Practice Nurse 08/16/18 Vicenta Raymond DO [address] [place] [address] [place] [address] Consulting Physician Obstetrics & Gynecology 09/25/21 Gus Chowdary MD #[address] [facility] [address] [place] [address] Consulting Physician Colon and Rectal Surgery 07/23/22 Virginie Reyse, RN [place] Nurse Remote Sensing Research Scientist 09/14/23 09/14/23 Virginie Reyes, RN [place] Nurse Remote Sensing Research Scientist 11/19/23 11/29/23 Virginie Reyes, RN [place] Nurse Remote Sensing Research Scientist 12/07/23 05/15/24 Kelley Lopez, MANAGED SERVICES SALES CONSULTANT, TARGET DEVELOPER #2 [facility] [address] [place] [address] Nurse Practitioner Advanced Practice Nurse 12/09/23 02/22/24 documented as of this encounter
--- OUTSIDE RECORDS SUMMARY | 2024-10-01 18:26 | XMS_ITS | Encounter Summary ---
Author Organization [facility] Address [address] [place] [address] Phone Care Team Providers Care E Commerce Analyst Name Role Phone Vaughn Bradshaw MD Primary Care Provider [phone] Claudia Horn SUPERVISOR BLOOMING MILL Unavailable [phone] Vicenta Raymond DO Unavailable [phone] Gus Chowdary MD Unavailable Kasey Williamson DO Primary Care Provider [phone] Virginie Reyes RN Unavailable Unavailable Virginie Reyes RN Unavailable Unavailable Virginie Reyes RN Unavailable Unavailable Kelley Lopez SUPERVISOR BLOOMING MILL, PUBLIC SPACE ATTENDANT Unavailable [phone] Reason for Visit * Reason Comments Medication Refill Encounter Details Date Type Department Care Team (Late st Contact Info) Description 02/05/2021 Refill [facility] #2 [place] [address] Vaughn Bradshaw MD #1 [place] [address] Medication Refill Social History Tobacco Use Types [...] COVID-19? No / Unsure 02/06/2021 9:38 AM PHYSICAL THERAPIST TECHNICIAN documented as of this encounter Miscellaneous Notes [...] Questions ?? loratadine (CLARITIN) 10 MG Tablet [[id number]] 34 Status: Active Ordering user: Vaughn Bradshaw MD 01/20/211334 Authorized by: Vaughn Bradshaw MD Frequency: Daily 01/20/21 - Until Discontinued Released by: Vaughn Bradshaw MD 01/20/211334 Diagnoses Seasonal allergies [J30.2] Associated Diagnoses Seasonal allergies Pharmacy [id number] [place] [address] [address] [facility] [address] ICAL THERAPIST TECHNICIAN documented in this encounter Plan of Treatment Upcoming Encounters Date Type Department Care Team (Late st Contact Info) Description 10/19/2024 10:00 AM CDT [facility] [place] [address] Kasey Williamson, DO 2 [facility] [address] [place] [address] 11/02/2024 10:20 AM CDT Office Visit [facility] #2 [facility] [place] [address] Kasey Williamson, DO 2 [facility] [address] [place] [address] documented as of this encounter Visit Diagnoses Diagnosis Seasonal allergies Allergic rhinitis, cause unspecified documented in this encounter Additional Health Concerns Infection Onset Date Last Indicated Resolved Time COVID - 19 03/31/2021 03/31/2021 03/31/2021 9:59 PM PHYSICAL THERAPIST TECHNICIAN COVID - 19 Confirmed 03/31/2021 03/31/2021 022 12:16 AM PHYSICAL THERAPIST TECHNICIAN COVID - 19 01/14/2022 01/14/2022 01/15/2022 7:59 AM CDT Respiratory Rule-Out 01/14/2022 01/14/2022 022 8:08 AM CDT COVID - 19 11/15/2023 11/15/2023 11/15/2023 11:4 7 PM CDT VRE 08/18/2024 08/18/2024 Assessment Noted Time PHQ-9 Depression Total Score: 0 10/04/19 21 9:00 AM CDT documented as of this encounter Care Teams E Commerce Analyst Relationship Specialty Start Date End Date Vaughn Bradshaw MD PCP - General Family Medicine 05/18/18 08/26/23 Kasey Williamson DO 2 [facility] [address] [place] [address] PCP - General Family Medicine 09/14/23 Claudia Horn APRN [address] [place] [address] Advanced Practice Nurse 08/16/18 Vicenta Raymond DO ONE PROFESSIONAL [place] [address] [place] [address] Consulting Physician Obstetrics & Gynecology 09/25/21 Gus Chowdary MD #2 [facility] [address] [place] [address] Consulting Physician Colon and Rectal Surgery 07/23/22 Virginie Reyes, RN [place] Nurse Account Executive Agribusiness 09/14/23 09/14/23 Virginie Reyes, RN [place] Nurse Account Executive Agribusiness 11/19/23 11/29/23 Virginie Reyes, RN [place] Nurse Account Executive Agribusiness 12/07/23 05/15/24 Kelley Lopez APRN, PUBLIC SPACE ATTENDANT #[address] [facility], [address] [place] [address] Nurse Practitioner Advanced Practice Nurse 12/09/23 02/22/24 documented as of this encounter
--- OUTSIDE RECORDS SUMMARY | 2024-10-01 18:26 | XMS_ITS | Encounter Summary ---
Author Organization [facility] Address [address] [place] [address] Phone Care Team Providers Care Staff Weapons Officer Name Role Phone Vaughn Bradshaw MD Primary Care Provider [phone] Claudia Horn MARKER MAKER Unavailable [phone] Vicenta Raymond DO Unavailable [phone] Gus Chowdary MD Unavailable Kasey Williamson DO Primary Care Provider [phone] Virginie Reyes RN Unavailable Unavailable Virginie Reyes RN Unavailable Unavailable Virginie Reyes RN Unavailable Unavailable Kelley Lopez MARKER MAKER, COTTON WRINGER Unavailable [phone] Reason for Visit * Reason Comments Medication Refill Encounter Details Date Type Department Care Team (Late st Contact Info) Description 03/16/2023 Refill [facility] #2 [place] [address] Vaughn Bradshaw MD #1 [place] [address] Medication Refill Social History Tobacco Use Types [...] Refill on file according to last Rx. DESIGNER documented in this encounter Plan of Treatment Upcoming Encounters Date Type Department Care Team (Late st Contact Info) Description 10/19/2024 10:00 AM CDT Office Visit [facility] #2 [place] [address] Kasey Williamson, DO [address] [address] 11/02/2024 10:20 AM CDT Office Visit [facility] #2 [place] [address] Kasey Williamson, DO 2 [facility] [address] [place] [address] documented as of this encounter Visit Diagnoses Diagnosis Type 2 diabetes mellitus with hyperglycemia, with long-term current use of insulin (HCC) documented in this encounter Additional Health Concerns Infection Onset Date Last Indicated Resolved Time COVID - 19 11/15/2023 11/15/2023 11/15/2023 11:4 7 PM CDT VRE 08/18/2024 08/18/2024 Assessment Noted Time PHQ-9 Depression Total Score: 17 023 10:00 AM RUG DESIGNER documented as of this encounter Care Teams Staff Weapons Officer Relationship Specialty Start Date End Date Vaughn Bradshaw MD PCP - General Family Medicine 05/18/18 08/26/23 Kasey Williamson DO 2 [facility] [address] [place] [address] PCP - General Family Medicine 09/14/23 Claudia Horn APRN [address] [place] [address] Advanced Practice Nurse 08/16/18 Vicenta Raymond DO ONE PROFESSIONAL [facility] [address] [place] [address] Consulting Physician Obstetrics & Gynecology 09/25/21 Gus Chowdary MD #2 [facility] [address] [place] [address] Consulting Physician Colon and Rectal Surgery 07/23/22 Virginie Reyes, RN [place] Nurse Opener Tender 09/14/23 09/14/23 Virginie Reyes, RN [place] Nurse Opener Tender 11/19/23 11/29/23 Virginie Reyes, RN [place] Nurse Opener Tender 12/07/23 05/15/24 Kelley Lopez, MARKER MAKER, COTTON WRINGER #2 [facility] [address] [place] [address] Nurse Practitioner Advanced Practice Nurse 12/09/23 02/22/24 documented as of this encounter
--- OUTSIDE RECORDS SUMMARY | 2024-10-01 18:26 | XMS_ITS | Encounter Summary ---
Author Organization [facility] Address [address] [place] [address] Phone Care Team Providers Care Peanut Blancher Name Role Phone Vaughn Bradshaw MD Primary Care Provider Claudia Horn CASE MANAGEMENT COORDINATOR Unavailable Vicenta Raymond DO Unavailable [phone] Gus Chowdary MD Unavailable Kasey Williamson DO Primary Care Provider [phone] Virginie Reyes RN Unavailable Unavailable Virginie Reyes RN Unavailable Unavailable Virginie Reyes RN Unavailable Unavailable Kelley Lopez CASE MANAGEMENT COORDINATOR, AUTO TECHNICIAN MECHANIC Unavailable [phone] Reason for Visit * Reason Comments Medication Refill Encounter Details Date Type Department Care Team (Late st Contact Info) Description 02/17/2023 Refill [facility] #2 [place] [address] Vauhgn Bradshaw MD #1 [place] [address] Medication Refill Social History Tobacco Use Types [...] Coronavirus/COVID-19? No / Unsure 01/28/2023 6:21 AM AUTOMOBILE ASSEMBLY SUPERVISOR documented as of this encounter Miscellaneous Notes [...] Range Status 12/07/2022 57 (L) >=60 Final MOBILE ASSEMBLY SUPERVISOR documented in this encounter Plan of Treatment Upcoming Encounters Date Type Department Care Team (Late st Contact Info) Description 10/19/2024 10:00 AM CDT Office Visit [facility] [address]2 [place] [address] Kasey Williamson, DO [address] [address] 11/02/2024 10:20 AM CDT Office Visit [facility] #2 [place] [address] Kasey Williamson DO 2 [facility] [address] [place] [address] documented as of this encounter Visit Diagnoses [...] documented as of this encounter Care Teams Peanut Blancher Relationship Specialty Start Date End Date Vaughn Bradshaw MD PCP - General Family Medicine 05/18/18 08/26/23 Kasey Williamson DO 2 [facility]. [address] [place] [address] PCP - General Family Medicine 09/14/23 Claudia Horn APRN [address] [place] [address] Advanced Practice Nurse 08/16/18 Vicenta Raymond DO ONE PROFESSIONAL [facility] [address] [place] [address] Consulting Physician Obstetrics & Gynecology 09/25/21 Gus Chowdary MD #2 [facility] [address] [place] [address] Consulting Physician Colon and Rectal Surgery 07/23/22 Virginie Reyes, RN [place] Nurse Wire Drawer 09/14/23 09/14/23 Virginie Reyes, RN [place] Nurse Wire Drawer 11/19/23 11/29/23 Virginie Reyes, RN [place] Nurse Wire Drawer 12/07/23 05/15/24 Kelley Lopez, CASE MANAGEMENT COORDINATOR, AUTO TECHNICIAN MECHANIC #2 [facility] [address] [place] [address] Nurse Practitioner Advanced Practice Nurse 12/09/23 02/22/24 documented as of this encounter
--- OUTSIDE RECORDS SUMMARY | 2024-10-01 18:26 | XMS_ITS | Encounter Summary ---
Author Organization [facility] Address [address] [facility] [address] Care Team Providers Care Varnisher Name Role Phone Kasey Williamson DO Primary Care Provider [phone] Melany Kuhn RN Unavailable Unavailable Encounter Details Date Type Department Care Team (Late Contact Info) Description 09/02/2018 Lab Requisition [facility] [address] [place] [address] Beth Osullivan MD [address] [place] [address] Other pancytopenia Social History Tobacco Use Types Packs/Day Years Used Date Smoking Tobacco: Never Assessed Comments Unknown Sex and Gender Information Value Date Recorded Sex Assigned at Not on file Legal Sex Female 12:53 PM BIOPHYSICS TEACHER Gender Identity Not on file Sexual Orientation Not on file documented as of this encounter Plan of Treatment Upcoming Encounters Date Type Department Care Team (Late Contact Info) Description 10/05/2024 4:00 PM CDT Office Visit [facility] [address] [facility], [place] [address] Nalini Ramírez, PhD [address] [place] [address] 11/28/2024 3:30 PM CDT Office Visit [facility] - [facility] [address] [place] [phone] Jorge Tran MD [address] [place] [phone] 02/01/2025 12:30 PM BIOPHYSICS TEACHER Appointment [facility] MRI [address] [place] [phone] Jorge Tran MD [address] [place] [phone] 02/01/2025 2:30 PM BIOPHYSICS TEACHER Office Visit [facility] - [facility] [address] [place] [phone] Jorge Tran MD [address] [place] [phone] 02/12/2025 11:00 AM BIOPHYSICS TEACHER Office Visit [facility] - Endocrinology [address] [place] [address], [place] [phone] Phoebe Joseph MD [address] [place] [address] [place] [phone] documented as of this encounter Procedures Procedure Name Priority Date/Time Associated Diagnosis Comments FLOW CYTOMETRY BONE MARROW Routine 09/02/2018 9:48 AM CDT Other pancytopenia documented in this encounter Results * FLOW CYTOMETRY BONE MARROW (09/02/2018 9:48 AM CDT) Case Report Flow Cytometry Case: [id number] Authorizing Provider: Beth Osullivan MD Collected: 09/02/2018 09:48 AM Pathologist: Kelton Ellsworth MD Received: 09/02/2018 02:43 PM Specimen: Bone Marrow 09/02/2018 4:36 PM CDT [facility] Final Diagnosis Bone marrow, flow cytometric immunophenotypic analysis ([id number]): - No evidence of non-Hodgkin lymphoma or high-grade myeloid neoplasm. - See interpretation. 09/02/2018 4:36 PM [facility]Y [facility] at 1636 CDT Flow Cytometry Interpretation The bone marrow specimen [...] the flow cytometry specimen is reviewed for nurse quality purposes. Overall, the bone marrow aspirate specimen shows no evidence of involvement by non-Hodgkin lymphoma or a high-grade myeloid neoplasm. Correlation with clinical findings, concurrent bone marrow core biopsy, and relevant cytogenetic/molecu lar studies is required. SEMICONDUCTOR TECHNICIAN/NW 09/02/2018 4:36 PM [facility] Flow Cytometry Results Differential Result Comment Flow Cell Count /uL [id number] Total Viability % 83.0 Lymphocytes % 24 Dim CD45 Region % 6 Monocytes % 7 Granulocytes % 55 09/02/2018 4:36 PM [facility] Reason for test Other pancytopenia 284.19 09/02/2018 4:36 PM [facility] Client Specimen ID # [id number] 09/02/2018 4:36 PM [facility] Number of markers 10 were performed. A Flow CD10 A Flow CD13 A Flow CD20 A Flow CD5 A Flow CD19 A Flow CD33 A Flow CD34 A Flow CD45 A [place]+CD19+ A Lambda+CD19+ 09/02/2018 4:36 PM [facility] Disclaimer Test performed at [facility], [address] [place] [address], [address]. *The established laboratory minimum viability is 70%. [...] high complexity clinical testing. 09/02/2018 4:36 PM CDT [facility] Embedded Images 4:36 PM CDT [facility] Pathology/Cytolo gy BONE MARROW SPECIMEN / Unknown 09/02/2018 9:48 AM CDT 09/02/2018 2:43 PM CDT us Beth Osullivan MD LAB - PATHOLOGY/CYTOLOGY ORDERA BLES Final Result [facility] [address] [phone] documented in this encounter Visit Diagnoses Diagnosis Other pancytopenia (HCC) Other pancytopenia documented in this encounter Additional Health Concerns Infection Onset Date Last Indicated Resolved Time COVID-19 Under Investigation 06/06/2024 06/06/2024 06/06/2024 9:54 AM CDT documented as of this encounter Care Teams Varnisher Relationship Specialty Start Date End Date Kasey Williamson DO [address] [place] [phone] PCP - General Family Medicine 12/27/23 Melany Kuhn, RN Registered Nurse Hepatology 05/03/24 06/19/24 documented as of this encounter
--- OUTSIDE RECORDS SUMMARY | 2024-10-01 18:26 | XMS_ITS | Encounter Summary ---
Author Organization [facility] Address [address] [place] [address] Phone Care Team Providers Care Rooming House Operator Name Role Phone Vaughn Bradshaw MD Primary Care Provider [phone] Claudia Horn INTERNAL SALESPERSON Unavailable [phone] Vicenta Raymond DO Unavailable [phone] Gus Chowdary MD Unavailable Kasey Williamson DO Primary Care Provider [phone] Virginie Reyes RN Unavailable Unavailable Virginie Reyes RN Unavailable Unavailable Virginie Reyes RN Unavailable Unavailable Kelley Lopez INTERNAL SALESPERSON, QUALITY SYSTEMS MANAGER Unavailable [phone] Reason for Visit * Reason Comments Medication Refill Encounter Details Date Type Department Care Team (Late st Contact Info) Description 04/11/2023 Refill [facility] #2 [place] [address] Vaughn Bradshaw MD [address] [place] [address] Medication Refill Social History Tobacco Use Types Packs/Day Years Used Date Smoking Tobacco: Never Smokeless Tobacco: Never Alcohol Use Standard Drinks/Week Comments No 0 (1 standard drink = 0.6 oz pur e alcohol) [facility] Utilities Answer Date Recorded In the past 12 months has star e electric, gas, oil, or water company threatened to shut off services in your home? Yes 03/21/2023 Social Connection and Isolation Panel Answer Date Recorded In a typical week, how many times do you talk on the phone with family, friends, or neighbors? More than three times a week 03/21/2023 How often do you get togethe r with friends or relatives? More than three times a week 03/21/2023 How often do you attend chur ch or mormon services? Never 03/21/2023 Do you belong to any clubs o r organizations such as protestant groups, unions, fraternal or athletic groups, or [...] Total Score - Questions 1-9 2 04/2023 [facility] [place] of Occupat ional Health - Occupational Stress [...] slept in a intermediate (including now)? No 03/21/2023 Education Answer Date [...] [place] Rio RN - 04/11/2023 2:13 PM REHAB DIRECTOR Medication warning Per nursing clinical judgement, provider [...] Office Visit Monae Jorgensen APRN, FIGUEROA [facility] 03/01/23 Office Visit Monae Jorgensen APRN, FIGUEROA [facility] 12/07/22 Office Visit Vaughn Bradshaw, MD [facility] 09/17/22 Office Visit Vaughn Bradshaw, MD [facility] 08/06/22 Office Visit Vaughn Bradshaw, MD [facility] 07/06/22 Office Visit Vaughn Bradshaw, MD [facility] 05/27/22 Office Visit Vivian Tucker APRN, QUALITY SYSTEMS MANAGER [facility] Showing recent visits within past 365 days and meeting all other requirements Future Appointments Date Type Provider Dept 05/04/23 Appointment Monae Jorgensen APRN, CNP [facility] Showing future appointments within next 90 days [...] 03/23/23 Office Visit Monae Jorgensen APRN, CNP [facility] 03/01/23 Office Visit Monae Jorgensen APRN, CNP [facility] 12/07/22 Office Visit Vaughn Bradshaw MD [facility] 09/17/22 Office Visit Vaughn Bradshaw MD [facility] 08/06/22 Office Visit Vaughn Bradshaw, MD [facility] Showing recent visits within past 270 days and meeting all other requirements Future Appointments Date Type Provider Dept 05/04/23 Appointment Monae Jorgensen APRN, CNP [facility] Showing future appointments within next 90 days and meeting all other requirements Passed - Blood pressure on record in past 12 months Clinician-entered: BP Readings from Last 3 Encounters: 03/23/23 118/80 03/01/23 122/84 12/07/22 130/82 Patient-entered: No data recorded B DIRECTOR documented in this encounter Plan of Treatment Upcoming Encounters Date Type Department Care Team (Late st Contact Info) Description 10/19/2024 10:00 AM CDT Office Visit [facility] #2 [facility] [place] [address] Kasey Williamson, DO 2 [facility] [address] [place] [address] 11/02/2024 10:20 AM CDT Office Visit [facility] #2 [facility] [place] [address] Kasey Williamson, DO 2 [facility] [address] [place] [address] documented as of this encounter Visit Diagnoses Diagnosis Environmental allergies Allergic rhinitis, cause unspecified Restless leg syndrome Restless legs syndrome (RLS) documented in this encounter Additional Health Concerns Infection Onset Date Last Indicated Resolved Time COVID - 19 11/15/2023 11/15/2023 11/15/2023 11:4 7 PM CDT VRE 08/18/2024 08/18/2024 Assessment Noted Time PHQ-9 Depression Total Score: 2 03/23/19 8:19 AM REHAB DIRECTOR documented as of this encounter Care Teams Rooming House Operator Relationship Specialty Start Date End Date aVughn Bradshaw MD PCP - General Family Medicine 05/18/18 08/26/23 Kasey Williamson DO 2 [facility] [address] [place] [address] PCP - General Family Medicine 09/14/23 Claudia Horn APRN [address] [place] [address] Advanced Practice Nurse 08/16/18 Vicenta Raymond DO [facility] [address] [place] [address] Consulting Physician Obstetrics & Gynecology 09/25/21 Gus Chodwary MD #[address] [facility] [address] [place] [address] Consulting Physician Colon and Rectal Surgery 07/23/22 Virginie Reyes, RN [place] Nurse Mobile Lounge Driver 09/14/23 09/14/23 Virginie Reyes, RN [place] Nurse Mobile Lounge Driver 11/19/23 11/29/23 Virginie Reyes, RN [place] Nurse Mobile Lounge Driver 12/07/23 05/15/24 Kelley Lopez APRN, QUALITY SYSTEMS MANAGER #[address] [facility] [address] [place] [address] Nurse Practitioner Advanced Practice Nurse 12/09/23 02/22/24 documented as of this encounter
--- OUTSIDE RECORDS SUMMARY | 2024-10-01 18:26 | XMS_ITS | Encounter Summary ---
Author Organization [facility] Address [address] [place] [address] Care Team Providers Care Room Service Associate Name Role Phone Kasey Williamson DO Primary Care Provider [phone] Melany Kuhn RN Unavailable Unavailable Encounter Details Date Type Department Care Team (Late Contact Info) Description 09/05/2018 Lab Requisition [facility] [address] [place] [address] Beth Osullivan MD [address] [place] [address] Social History Tobacco Use Types Packs/Day Years Used Date Smoking Tobacco: Never Assessed Comments Unknown Sex and Gender Information Value Date Recorded Sex Assigned at Not on file Legal Sex Female 12:53 PM RIVET HAMMER MACHINE 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 Gender Identity Not on file Sexual Orientation Not on file documented as of this encounter Plan of Treatment Upcoming Encounters Date Type Department Care Team (Late Contact Info) Description 10/05/2024 4:00 PM CDT Office Visit [facility] [address] [facility] [place] [address] Nalini Ramírez, PhD [address] [place] [address] 11/28/2024 3:30 PM CDT Office Visit [facility] [address] [place] [phone] Jorge Tran MD [address] [place] [phone] 02/01/2025 12:30 PM RIVET HAMMER MACHINE OPERATOR Appointment [facility] MRI [address] [place] [phone] Jorge Tran MD [address] [place] [phone] 02/01/2025 2:30 PM RIVET HAMMER MACHINE OPERATOR Office Visit [facility] - [facility] [address] [place] [phone] Jorge Tran MD [address] [place] [phone] 02/12/2025 11:00 AM RIVET HAMMER MACHINE OPERATOR Office Visit [facility] - Endocrinology [address] [place] [address], [place] [phone] Phoebe Joseph MD [address] [place] [address] [place] [phone] documented as of this encounter Procedures Procedure Name Priority Date/Time Associated Diagnosis Comments BONE MARROW BIOPSY (STL) Routine 09/02/2018 9:00 AM CDT documented in this encounter Results * BONE MARROW BIOPSY (STL) (09/02/2018 9:00 AM CDT) Case Report Bone Marrow Patholog y Report Case: [id number] Authorizing Provider: Beth Osullivan MD Collected: 09/02/2018 09:00 AM Pathologist: Marii Sims MD Received: 09/05/2018 03:01 PM Specimens: A) - Bone Marrow Core, [id number] B) - Bone Marrow Clot, [id number] C) - Blood Peripheral, [id number] D) - Bone Marrow Aspirate, [id number] 09/06/2018 1:56 PM [facility] Final Diagnosis Bone marrow, aspirate, clot section, and core biopsy: - Normocellular marrow with maturing trilineage hematopoiesis. - No evidence of lymphoma or high-grade myeloid neoplasm. - See description. Peripheral blood smear: - Pancytopenia. - See description. 09/06/2018 1:56 PM [facility] at 1356 CDT AP Comment Overall, the bone marrow specimen is normocellular for age with maturing trilineage hematopoiesis and no evidence of lymphoma, a high-grade myeloid neoplasm, or significant dyspoiesis. Concurrent bone marrow flow cytometry ([id number]) demonstrates no evidence of non-Hodgkin lymphoma or a high-grade myeloid neoplasm. As no clonal or infiltrative process is identified in the marrow, other etiologies which may cause pancytopenia (including infectious, autoimmune/inflammato ry conditions, and nutritional deficiencies) should be further investigated. Correlation with clinical findings and relevant cytogenetic/molecular testing is required. KR/NW 09/06/2018 1:56 PM [facility] Peripheral Smear Description Outside CBC [...] seen. Platelet morphology: normal. 09/06/2018 1:56 PM [facility] Bone Marrow Aspirate Differential count [...] smears, but are paucicellular. 09/06/2018 1:56 PM [facility] Bone Marrow Core Biopsy and [...] scant marrow particles present. 09/06/2018 1:56 PM [facility] Flow Cytometry Summary Concurrent bone marrow flow cytometry ([id number]) demonstrates no evidence of non-Hodgkin lymphoma or a high-grade myeloid neoplasm. 09/06/2018 1:56 PM [facility] Clinical History 52 year old woman with pancytopenia. 09/06/2018 1:56 PM [facility] Materials Received Received are 19 slides and 2 blocks labeled as [id number] along with the outside pathology report. The materials originate from [facility], [address] [place] [address]. All materials are returned to the referring institution, along with a copy of our final report. 09/06/2018 1:56 PM [facility] Disclaimer The performance characteristics of all immunohistochemical and indirect immunofluorescence stains (if any) cited in this report were determined by the Histopathology Laboratory of [facility]. Some of these tests were developed by [...] the attending (teaching) pathologist. 09/06/2018 1:56 PM CDT [facility] Embedded Images 09/06/2018 1:56 PM CDT [facility] Pathology/Cytology SPECIMEN FROM BONE [...] PM CDT Beth Osullivan MD LAB - PATHOLOGY/CYTOLOGY ORDERA BLES Final Result Performing Organization Address City/State/[facility] Co de Phone Number [facility] [address] [phone] documented in this encounter Visit Diagnoses Not on filedocumented in this encounter Additional Health Concerns Infection Onset Date Last Indicated Resolved Time COVID-19 Under Investigation 06/06/2024 06/06/2024 06/06/2024 9:54 AM CDT documented as of this encounter Care Teams Room Service Associate Relationship Specialty Start Date End Date Kasey Williamson DO [address] [place] [phone] PCP - General Family Medicine 12/27/23 Melany Kuhn, RN Registered Nurse Hepatology 05/03/24 06/19/24 documented as of this encounter
--- OUTSIDE RECORDS SUMMARY | 2024-10-01 18:26 | XMS_ITS | Encounter Summary ---
Author Organization [facility] Address [address] [place] [address] Phone Care Team Providers Care Sales Coach Name Role Phone Vaughn Bradshaw MD Primary Care Provider [phone] Claudia Horn PLASTIC SURGERY NURSE Unavailable Vicenta Raymond DO Unavailable [phone] Gus Chowdary MD Unavailable Kasey Williamson DO Primary Care Provider [phone] Virginie Reyes RN Unavailable Unavailable Virginie Reyes RN Unavailable Unavailable Virginie Reyes RN Unavailable Unavailable Kelley Lopez PLASTIC SURGERY NURSE, INDUSTRIAL HEALTH AND SAFETY PROFESSOR Unavailable [phone] Reason for Visit * Reason Comments Medication Refill Encounter Details Date Type Department Care Team (Late st Contact Info) Description 07/06/2021 Refill [facility] #2 [place] [address] Vaughn Bradshaw MD #[address] [place] [address] Medication Refill Social History Tobacco Use Types [...] [place] 04/21/21 Telemedicine Monae Jorgensen APRN, FIGUEROA [facility] 02/24/21 Office Visit Vaughn Bradshaw MD [facility] 01/20/21 Office Visit Vaughn Bradshaw MD [facility] 12/09/20 Office Visit Vaughn Bradshaw MD [facility] 11/28/20 Telemedicine Vaughn Bradshaw MD [facility] 10/03/20 Office Visit [facility] Show[facility] recent visits within past 365 days and meeting all other requirements Future Appointments No visits were found meeting these conditions. Showing future appointments within next 90 days and meeting all other requirements documented in this encounter Plan of Treatment Upcoming Encounters Date Type Department Care Team (Late st Contact Info) Description 10/19/2024 10:00 AM CDT Office Visit [facility] #2 [place] [address] Kasey Williamson, DO 2 [facility] [address] [place] [address] 11/02/2024 10:20 AM CDT Office Visit [facility] #2 [place] [address] Kasey Williamson, DO 2 [facility] [address] [place] [address] documented as of this encounter Visit Diagnoses [...] documented as of this encounter Care Teams Sales Coach Relationship Specialty Start Date End Date Vaughn Bradshaw MD PCP - General Family Medicine 05/18/18 08/26/23 Kasey Williamson DO 2 [facility] [address] [place] [address] PCP - General Family Medicine 09/14/23 Claudia Horn APRN [address] [place] [address] Advanced Practice Nurse 08/16/18 Vicenta Raymond DO [facility] [address] [place] [address] Consulting Physician Obstetrics & Gynecology 09/25/21 Gus Chowdary MD #2 [facility] [address] [place] [address] Consulting Physician Colon and Rectal Surgery 07/23/22 Virginie Reyes, RN MD Nurse Sleeve Separator 09/14/23 09/14/23 iVrginie Reyes, RN [place] Nurse Sleeve Separator 11/19/23 11/29/23 Virginie Reyes, RN [place] Nurse Sleeve Separator 12/07/23 05/15/24 Kelley Lopez APRN, INDUSTRIAL HEALTH AND SAFETY PROFESSOR [address] [facility] [address] [place] [address] Nurse Practitioner Advanced Practice Nurse 12/09/23 02/22/24 documented as of this encounter
--- OUTSIDE RECORDS SUMMARY | 2024-10-01 18:26 | XMS_ITS | Referral Summary ---
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 Pancytopenia 12/10/2017 Splenomegaly 12/10/2017 Diabetes mellitus 03/22/2003 Resolved Problems Problem Noted Date Diagnosed Date Resolved Date Abnormal uterine bleeding 02/20/2022 Overview (02/20/2022): Added automatically from request for surgery [id number] Postmenopausal bleeding 09/04/202104/22 Overview (09/04/2021): Added automatically from request for surgery [id number] Immunizations Immunization Administration Dates Next Due Hep [...] Comments Blood Pressure 138/82 05/08/2022 11:08 AM CORN BREEDER Pulse 94 03/24/2022 4:20 PM CORN BREEDER Temperature 36.9 C (98.5 F) 03/24/2022 4:20 PM CORN BREEDER Respiratory Rate 16 03/24/2022 4:20 PM CORN BREEDER Oxygen Saturation 97% 03/24/2022 4:20 PM CORN BREEDER Inhaled Oxygen Concentration - - Weight 111.9 kg (246 lb 9.6 oz) 023 11:08 AM CORN BREEDER Height 154.9 cm (5' 1) 03/24/2022 6:50 AM CORN BREEDER Body Mass Index 46.59 03/24/2022 6:50 AM CORN BREEDER Plan of Treatment Not on file Procedures [...] Most Recently Relevant to Health Maintenance Insurance [facility] MEDICARE O [facility] MEDICARE HMO Care Teams Mathematical Sciences Professor Relationship Specialty Start Date End Date Vaughn Bradshaw MD [address] [address] PCP - General Family Medicine 12/30/21 Vicenta Raymond DO [address] [place] [address] Consulting Physician Obstetrics and Gynecology 09/09/21
--- OUTSIDE RECORDS SUMMARY | 2024-10-01 18:26 | XMS_ITS | Encounter Summary ---
Author Organization [facility] Address [address] [place] [address] Phone Care Team Providers Care Radial Drill Press Operator For Plastic Name Role Phone Vaughn Bradshaw MD Primary Care Provider [phone] Claudia Horn CCNP Unavailable [phone] Vicenta Raymond DO Unavailable [phone] Gus Chowdary MD Unavailable Kasey Williamson DO Primary Care Provider [phone] Virginie Reyes RN Unavailable Unavailable Virginie Reyes RN Unavailable Unavailable Virginie Reyes RN Unavailable Unavailable Kelley Lopez CCNP, CIVIL LAWYER Unavailable [phone] Reason for Visit * Reason Comments Medication Refill Encounter Details Date Type Department Care Team (Late st Contact Info) Description 06/18/2021 Refill [facility] #2 [place] [phone] Vaughn Bradshaw MD [address] [place] [address] Medication Refill Social History Tobacco Use Types [...] Dept 04/21/21 Telemedicine Monae Jorgensen APRN, FIGUEROA [facility] 02/24/21 Office Visit Vaughn Bradshaw MD [...] Description 10/19/2024 10:00 AM CDT Office Visit [facility] #2 [place] [address] Kasey Williamson DO [address] [facility] [place] [address] 11/02/2024 10:20 AM CDT Office Visit [facility] #2 [place] [address] Kasey Williamson, 2 [facility] [place] [address] documented as of this encounter Visit Diagnoses [...] documented as of this encounter Care Teams Radial Drill Press Operator For Plastic Relationship Specialty Start Date End Date Vaughn Bradshaw MD PCP - General Family Medicine 05/18/18 08/26/23 Kasey Williamson DO 2 [facility] [address] [address] PCP - General Family Medicine 09/14/23 Claudia Horn APRN [address] [facility] [place] [address] Advanced Practice Nurse 08/16/18 Vicenta Raymond DO [address] [place] [address] [place] [address] Consulting Physician Obstetrics & Gynecology 09/25/21 Gus Chowdary MD #2 [facility] [address] [place] [address] Consulting Physician Colon and Rectal Surgery 07/23/22 Virginie Reyes, RN [place] Nurse Server Service Assistant 09/14/23 09/14/23 Virginie Reyes, RN [place] Nurse Server Service Assistant 11/19/23 11/29/23 Virginie Reyes, RN [place] Nurse Server Service Assistant 12/07/23 05/15/24 Kelley Lopez, CCNP, CIVIL LAWYER #2 [facility] [address] [place] [address] Nurse Practitioner Advanced Practice Nurse 12/09/23 02/22/24 documented as of this encounter
--- OUTSIDE RECORDS SUMMARY | 2024-10-01 18:26 | XMS_ITS | Encounter Summary ---
Author Organization [facility] Address [address] [place] [address] Phone Care Team Providers Care General Dentist/Owner Name Role Phone Vaughn Bradshaw MD Primary Care Provider [phone] Claudia Horn DUE DILIGENCE COORDINATOR Unavailable [phone] Vicenta Raymond DO Unavailable [phone] Gus Chowdary MD Unavailable Kasey Williamson DO Primary Care Provider [phone] Virginie Reyes RN Unavailable Unavailable Virginie Reyes RN Unavailable Unavailable Virginie Reyes RN Unavailable Unavailable Kelley Lopez DUE DILIGENCE COORDINATOR, RECEIVING OPERATOR Unavailable [phone] Reason for Visit * Reason Comments Medication Refill Encounter Details Date Type Department Care Team (Late st Contact Info) Description 03/19/2023 Refill [facility] #2 [place] [id number] Vaughn Bradshaw MD #1 [place] [address] Medication Refill Social History Tobacco Use Types Packs/Day Years Used Date Smoking Tobacco: Never Smokeless Tobacco: Never Alcohol Use Standard Drinks/Week Comments No 0 (1 standard drink = 0.6 oz pur e alcohol) [facility] Utilities Answer Date Recorded In [...] often do you attend chur ch or episcopalian services? Never 03/21/2023 Do you belong to any clubs o r organizations such as yarsanism groups, unions, fraternal or athletic groups, or [...] Total Score - Questions 1-9 2 04/2023 [facility] [place] of Occupat ional Health - Occupational Stress [...] place to sleep or slept in a prison (including now)? No 03/21/2023 Education Answer Date [...] as of this encounter Functional Status * AUDIT-C Score Answer Date of Assessment Author 0 03/21/2023 12:05 PM MIAH Wu, System Background * Q1: How often do you have a drink containing alcohol? Answer Date of Assessment Author Never 03/21/2023 12:05 PM MIAH Wu, System Background * Q2: How many drinks containing alcohol do you have on a typical day when you are drinking? Answer Date of Assessment Author Patient does not drink 03/21/2023 12:05 PM PACKING ROOM INSPECTOR Jonny [email or web address] System Background * Q3: How often do you have six or more drinks on one occasion? Answer Date of Assessment Author Never 03/21/2023 12:05 PM MIAH [facility] [employer] Background documented as of this encounter Miscellaneous Notes * Telephone Encounter - Maria T Rachel, RN - 03/19/2023 12:50 PM CST Continue [...] Dept 03/01/23 Office Visit Monae Jorgensen APRN, FIGUEROA [facility] 12/07/22 Office Visit Vaughn Bradshaw MD [...] Range Status 12/07/2022 59 (L) >=60 Final ING ROOM INSPECTOR * Telephone Encounter - Maria T Alejandre RN - 03/19/2023 12:47 PM CST Images from the original note were not included. Semaglutide Dispensed Days Supply Quantity Provider Pharmacy OZEMPIC 1MG PER DOSE (4MG/3ML) [facility] 03/05/2023 14 3 mL Vaughn Bradshaw MD [facility] #... OZEMPIC 1MG PER DOSE (4MG/3ML) [facility] 02/22/2023 14 3 mL Vaughn Bradshaw MD [facility] #... Fill quantity 14 days ING ROOM INSPECTOR documented in this encounter Plan of Treatment Upcoming Encounters Date Type Department Care Team (Late st Contact Info) Description 10/19/2024 10:00 AM CDT Office Visit [facility] [place] [address] Kasey Williamson, DO [address] [address] 11/02/2024 10:20 AM CDT Office Visit [facility] [place] [address] Kasey Williamson, DO [address] [address] documented as of this encounter Visit Diagnoses Diagnosis Type 2 diabetes mellitus with hyperglycemia, with long-term current use of insulin (HCC) documented in this encounter Additional Health Concerns Infection Onset Date Last Indicated Resolved Time COVID - 19 11/15/2023 11/15/2023 11/15/2023 11:4 7 PM CDT VRE 08/18/2024 08/18/2024 Assessment Noted Time PHQ-9 Depression Total Score: 17 023 10:00 AM PACKING ROOM INSPECTOR documented as of this encounter Care Teams General Dentist/Owner Relationship Specialty Start Date End Date Vaughn Bradshaw MD PCP - General Family Medicine 05/18/18 08/26/23 Kasey Williamson DO 2 [facility] [address] [place] [address] PCP - General Family Medicine 09/14/23 Claudia Horn APRN [address] [place] [address] Advanced Practice Nurse 08/16/18 Vicenta Raymond DO ONE PROFESSIONAL [facility] [address] [place] [address] Consulting Physician Obstetrics & Gynecology 09/25/21 Gus Chowdary MD #2 [facility] [address] [place] [address] Consulting Physician Colon and Rectal Surgery 07/23/22 Virginie Reyes, FAYE [place] Nurse Plastering Contractor 09/14/23 09/14/23 Virginie Reyes, RN [place] Nurse Plastering Contractor 11/19/23 11/29/23 Virginie Reyes, RN [place] Nurse Plastering Contractor 12/07/23 05/15/24 Kelley Lopez APRN, RECEIVING OPERATOR #[address] [facility] [address] [place] [address] Nurse Practitioner Advanced Practice Nurse 12/09/23 02/22/24 documented as of this encounter
--- OUTSIDE RECORDS SUMMARY | 2024-10-01 18:26 | XMS_ITS | Encounter Summary ---
Author Organization [facility] Address [address] [place] [address] Phone Care Team Providers Care Window Cleaner Name Role Phone Vaughn Bradshaw MD Primary Care Provider [phone] Claudia Horn FISHING BOAT MATE Unavailable Vicenta Raymond DO Unavailable [phone] Gus Chowdary MD Unavailable Kasey Williamson DO Primary Care Provider Virginie eRyes RN Unavailable Unavailable Virginie Reyes RN Unavailable Unavailable Virginie Reyes RN Unavailable Unavailable Kelley Lopez FISHING BOAT MATE, OUTBOUND CALL CENTER REPRESENTATIVE Unavailable [phone] Reason for Visit * Reason Comments Medication Refill Encounter Details Date Type Department Care Team (Late st Contact Info) Description 04/12/2023 Refill [facility] #2 [place] [address] Vaughn Bradshaw MD #1 [place] [address] Medication Refill Social History Tobacco Use Types Packs/Day Years Used Date Smoking Tobacco: Never Smokeless Tobacco: Never Alcohol Use Standard Drinks/Week Comments No 0 (1 standard drink = 0.6 oz pur e alcohol) [facility] Utilities Answer Date Recorded In the past [...] often do you attend chur ch or yazidism services? Never 03/21/2023 Do you belong to any clubs o r organizations such as sabianist groups, unions, fraternal or athletic groups, or [...] Total Score - Questions 1-9 2 04/2023 [facility] [place] of Occupat ional Health - Occupational Stress [...] place to sleep or slept in a residential (including now)? No 03/21/2023 Education Answer Date [...] Office Visit Monae Jorgensen APRN, FIGUEROA [facility] 03/01/23 Office Visit Monae Jorgensen APRN, FIGUEROA [facility] 12/07/22 Office Visit Vaughn Bradshaw, MD [facility] 09/17/22 Office Visit Vaughn Bradshaw, MD [facility] 08/06/22 Office Visit Vaughn Bradshaw, MD [facility] 07/06/22 Office Visit Vaughn Bradshaw, MD [facility] 05/27/22 Office Visit Vivian Tucker APRN, OUTBOUND CALL CENTER REPRESENTATIVE [facility] Showing recent visits within past 365 days and meeting all other requirements Future Appointments Date Type Provider Dept 05/04/23 Appointment Monae Jorgensen APRN, OUTBOUND CALL CENTER REPRESENTATIVE [facility] Showing future appointments within next 90 days and meeting all other requirements TRICAL AUTOMATION ENGINEER documented in this encounter Plan of Treatment Upcoming Encounters Date Type Department Care Team (Late st Contact Info) Description 10/19/2024 10:00 AM CDT Office Visit [facility] #2 [place] [address] Kasey Williamson, DO 2 [facility] [address] [place] [address] 11/02/2024 10:20 AM CDT Office Visit [facility]2 [place] [address] Kasey Williamson, DO 2 [facility] [address] [place] [address] documented as of this encounter Visit Diagnoses Not on filedocumented in this encounter Additional Health Concerns Infection Onset Date Last Indicated Resolved Time COVID - 19 11/15/2023 11/15/2023 11/15/2023 11:4 7 PM CDT VRE 08/18/2024 08/18/2024 Assessment Noted Time PHQ-9 Depression Total Score: 2 03/23/19 24 8:19 AM ELECTRICAL AUTOMATION ENGINEER documented as of this encounter Care Teams Window Cleaner Relationship Specialty Start Date End Date Vaughn Bradshaw MD PCP - General Family Medicine 05/18/18 08/26/23 Kasey Williamson DO 2 [facility] [address] [place] [address] PCP - General Family Medicine 09/14/23 Claudia Horn APRN [address] [place] [address] Advanced Practice Nurse 08/16/18 Vicenta Raymond DO ONE PROFESSIONAL [facility] [address] [place] [address] Consulting Physician Obstetrics & Gynecology 09/25/21 Gus Chowdary MD #2 [facility] [address] [place] [address] Consulting Physician Colon and Rectal Surgery 07/23/22 Virginie Reyes, FAYE [place] Nurse B And B Gang Worker 09/14/23 09/14/23 Virginie Reyes, RN [place] Nurse B And B Gang Worker 11/19/23 11/29/23 Virginie Reyes, RN [place] Nurse B And B Gang Worker 12/07/23 05/15/24 Kelley Lopez, FISHING BOAT MATE, OUTBOUND CALL CENTER REPRESENTATIVE #2 [facility], [address] [place] [address] Nurse Practitioner Advanced Practice Nurse 12/09/23 02/22/24 documented as of this encounter
--- OUTSIDE RECORDS SUMMARY | 2024-10-01 18:26 | XMS_ITS | Encounter Summary ---
Author Organization [facility] Address [address] [place] [address] Phone Care Team Providers Care Tyre Retreader Name Role Phone Vaughn Bradshaw MD Primary Care Provider [phone] Claudia Horn INFO PRINT PRESS OPERATOR Unavailable [phone] Vicenta Raymond DO Unavailable [phone] Gus Chowdary MD Unavailable Kasey Williamson DO Primary Care Provider [phone] Virginie Reyes RN Unavailable Unavailable Virginie Reyes RN Unavailable Unavailable Virginie Reyes RN Unavailable Unavailable Kelley Lopez INFO PRINT PRESS OPERATOR, LITIGATION SERVICES MANAGER Unavailable [phone] Reason for Visit * Reason Comments Medication Refill Encounter Details Date Type Department Care Team (Late st Contact Info) Description 07/30/2023 Refill [facility] #2 [place] [address] Vaughn Bradshaw MD #1 [place] [address] Medication Refill Social History Tobacco Use Types Packs/Day Years Used Date Smoking Tobacco: Never Smokeless Tobacco: Never Alcohol Use Standard Drinks/Week Comments No 0 (1 standard drink = 0.6 oz pur e alcohol) [facility] Utilities Answer Date Recorded In the past [...] often do you attend chur ch or orthodox services? Never 04/27/2023 Do you belong to any clubs o r organizations such as jain groups, unions, fraternal or athletic groups, or [...] Total Score - Questions 1-9 2 04/2023 [facility] [place] of Occupat ional Health - Occupational Stress [...] slept in a intermediate (including now)? No 04/27/2023 Education Answer Date [...] Visit Monae Jorgensen APRN, CNP [facility] Showing recent visits within past [...] Description 10/19/2024 10:00 AM CDT Office [facility] [place] [address] Kasey Williamson, 2 [facility] [address] [place] [address] 11/02/2024 10:20 AM CDT Office [facility] [place] [address] Kasey Williamson, [address] [address] documented as of this encounter Visit Diagnoses Diagnosis Moderate episode of recurrent major depressive disorder (HCC) documented in this encounter Additional Health Concerns Infection Onset Date Last Indicated Resolved Time COVID - 19 11/15/2023 11/15/2023 11/15/2023 11:4 7 PM CDT VRE 08/18/2024 08/18/2024 Assessment Noted Time PHQ-9 Depression Total Score: 2 03/23/19 8:19 AM TECHNICAL SERVICE ENGINEER documented as of this encounter Care Teams Tyre Retreader Relationship Specialty Start Date End Date Vaughn Bradshaw MD PCP - General Family Medicine 05/18/18 08/26/23 Kasey Williamson, [address] [address] PCP - General Family Medicine 09/14/23 Claudia Horn, INFO PRINT PRESS OPERATOR [address] [place] [place] [address] Advanced Practice Nurse 08/16/18 Vicenta Raymond DO [address] [facility] [address] [place] [address] Consulting Physician Obstetrics & Gynecology 09/25/21 Gus Chowdary MD #2 [place] [facility] [address] [place] [address] Consulting Physician Colon and Rectal Surgery 07/23/22 Virginie Reyes, RN [place] Nurse Lay Out Drafter 09/14/23 09/14/23 Virginie Reyes, RN [place] Nurse Lay Out Drafter 11/19/23 11/29/23 Virginie Reyes, RN [place] Nurse Lay Out Drafter 12/07/23 05/15/24 Kelley Lopez, INFO PRINT PRESS OPERATOR, LITIGATION SERVICES MANAGER #2 [facility] [address] [place] [address] Nurse Practitioner Advanced Practice Nurse 12/09/23 02/22/24 documented as of this encounter
--- OUTSIDE RECORDS SUMMARY | 2024-10-01 18:26 | XMS_ITS | Encounter Summary ---
Author Organization [facility] Address [address] [place] [address] Phone Care Team Providers Care Metal Fabricator Apprentice Name Role Phone Claudia Horn Nay PELLETIERN Unavailable [phone] Vicenta Raymond DO Unavailable [phone] Gus Chowdary MD Unavailable Kasey Williamson DO Primary Care Provider Virginie Reyes RN Unavailable Unavailable Virginie Reyes RN Unavailable Unavailable Kelley Lopez ORNAMENTAL METALWORK DESIGNER, CHIMNEY BUILDER BRICK Unavailable [phone] Reason for Visit * Reason Comments Medication Refill Encounter Details Date Type Department Care Team (Late st Contact Info) Description 11/09/2023 Refill [facility] #2 [place] [address] Vaughn Bradshaw MD #1 [place] [address] Medication Refill Social History Tobacco Use Types [...] your home? Yes 08/04/2023 Social Connection and Isolation Panel Answer Date Recorded In a typical week, how many times do you talk on the phone with family, friends, or neighbors? Once a week 08/04/2023 How often do you get togethe r with friends or relatives? More than three times a week 08/04/2023 How often do you attend chur ch or confucianist services? Never 08/04/2023 Do you belong to any clubs o r organizations such as moravian groups, unions, fraternal or athletic groups, or [...] Total Score - Questions 1-9 2 04/2023 [facility] [place] of Occupat ional Health - Occupational Stress [...] place to sleep or slept in a jail (including now)? No 08/04/2023 Education Answer Date [...] 10/31/2023 90 180 Each Vaughn Bradshaw MD [facility] #... FLUOXETINE 20MG CAPSULES 07/30/2023 90 180 Each Vaughn Bradshaw MD [facility] #... Levothyroxine Sodium Dispensed Days Supply Quantity Provider Pharmacy LEVOTHYROXINE 0.05MG (50MCG) TAB 10/31/2023 90 90 Each Vaughn Bradshaw MD [facility] #... LEVOTHYROXINE 0.05MG (50MCG) TAB 07/30/2023 90 90 Each [facility] documented in this encounter Plan of Treatment Upcoming Encounters Date Type Department Care Team (Late st Contact Info) Description 10/19/2024 10:00 AM CDT Office Visit [facility]2 [place] [address] Kasey Williamson DO 2 [facility] [address] [place] [address] 11/02/2024 10:20 AM CDT Office Visit [facility]2 [place] [address] Kasey Williamson DO 2 [facility] [address] [place] [address] documented as of this encounter Visit Diagnoses Diagnosis Moderate episode of recurrent major depressive disorder (HCC) documented in this encounter Additional Health Concerns Infection Onset Date Last Indicated Resolved Time COVID - 19 11/15/2023 11/15/2023 11/15/2023 11:4 7 PM CDT VRE 08/18/2024 08/18/2024 Assessment Noted Time PHQ-9 Depression Total Score: 2 03/23/19 8:19 AM HOT METAL CHARGER documented as of this encounter Care Teams Metal Fabricator Apprentice Relationship Specialty Start Date End Date Kasey Williamson DO 2 [facility] [address] [place] [address] PCP - General Family Medicine 09/14/23 Claudia Horn APRN [address] [place] [address] Advanced Practice Nurse 08/16/18 Vicenta Raymond DO ONE PROFESSIONAL [facility] [address] [place] [address] Consulting Physician Obstetrics & Gynecology 09/25/21 Gus Chowdary MD #[address] [facility] [address] [place] [address] Consulting Physician Colon and Rectal Surgery 07/23/22 Virginie Reyes, RN [place] Nurse Form Layer 11/19/23 11/29/23 Virginie Reyes, RN [place] Nurse Form Layer 12/07/23 05/15/24 Kelley Lopez APRN, CHIMNEY BUILDER BRICK #2 [facility] [address] [place] [address] Nurse Practitioner Advanced Practice Nurse 12/09/23 02/22/24 documented as of this encounter
--- OUTSIDE RECORDS SUMMARY | 2024-10-01 18:26 | XMS_ITS | Encounter Summary ---
Author Organization [facility] Address [address] [place] [address] Phone Care Team Providers Care Customer Care Assistant Name Role Phone Vaughn Bradshaw MD Primary Care Provider Claudia Horn SAND CONDITIONER MACHINE Unavailable [phone] Vicenta Rayomnd DO Unavailable [phone] Gus Chowdary MD Unavailable Kasey Williamson DO Primary Care Provider [phone] Virginie Reyes RN Unavailable Unavailable Virginie Reyes RN Unavailable Unavailable Virginie Reyes RN Unavailable Unavailable Kelley Lopez SAND CONDITIONER MACHINE, LOCOMOTIVE FIRER Unavailable [phone] Encounter Details Date Type Department Care Team (Late st Contact Info) Description 01/12/2023 [facility] 1 [place] [address] Maria Teresa Myers, RN [place] [...] Description 10/19/2024 10:00 AM CDT Office Visit [facility]2 [place] [address] Kasey Williamson, DO [address] [address] 11/02/2024 10:20 AM CDT Office Visit [facility]2 [place] [address] Kasey Williamson, DO [address] [address] documented as of this encounter Visit Diagnoses Not on filedocumented in this encounter Additional Health Concerns Infection Onset Date Last Indicated Resolved Time COVID - 19 11/15/2023 11/15/2023 11/15/2023 11:4 7 PM CDT VRE 08/18/2024 08/18/2024 Assessment Noted Time PHQ-9 Depression Total Score: 0 12/08/19 8:37 AM CDT documented as of this encounter Care Teams Customer Care Assistant Relationship Specialty Start Date End Date Vaughn Bradshaw MD PCP - General Family Medicine 05/18/18 08/26/23 Kasey Williamson DO 2 [facility] [place] [address] [place] [address] PCP - General Family Medicine 09/14/23 Claudia Horn, FRANCES [address] [place] [address] Advanced Practice Nurse 08/16/18 Vicenta Raymond DO ONE PROFESSIONAL [facility] [address] [place] [address] Consulting Physician Obstetrics & Gynecology 09/25/21 Gus Chowdary MD #2 [facility] [address] [place] [address] Consulting Physician Colon and Rectal Surgery 07/23/22 Virginie Reyes, RN [place] Nurse Pole Incisor Operator 09/14/23 09/14/23 Virginie Reyes, RN [place] Nurse Pole Incisor Operator 11/19/23 11/29/23 Virginie Reyes, RN [place] Nurse Pole Incisor Operator 12/07/23 05/15/24 Kelley Lopez, SAND CONDITIONER MACHINE, LOCOMOTIVE FIRER #2 [place] [facility] [address] [place] [address] Nurse Practitioner Advanced Practice Nurse 12/09/23 02/22/24 documented as of this encounter
--- OUTSIDE RECORDS SUMMARY | 2024-10-01 18:26 | XMS_ITS | Encounter Summary ---
Author Organization [facility] Address [address] [place] [address] Phone Care Team Providers Care Student Services Vice President Name Role Phone Vaughn Bradshaw MD Primary Care Provider [phone] Claudia Horn TELETYPE OPERATOR Unavailable [phone] Vicenta Raymond DO Unavailable [phone] Gus Chowdary MD Unavailable Kasey Williamson DO Primary Care Provider [phone] Virginie Reyes RN Unavailable Unavailable Virginie Reyes RN Unavailable Unavailable Virginie Reyes RN Unavailable Unavailable Kelley Lopez TELETYPE OPERATOR, CD REACTOR OPERATOR HEAD Unavailable [phone] Reason for Visit * Reason Comments Medication Refill Encounter Details Date Type Department Care Team (Late st Contact Info) Description 04/18/2023 Refill [facility] #2 [place] [address] Monae Jorgensen APRN, CD REACTOR OPERATOR HEAD #[address] [address] Medication Refill Social History Tobacco [...] often do you attend chur ch or amish services? Never 03/21/2023 Do you belong to any clubs o r organizations such as advent groups, unions, fraternal or athletic groups, or [...] Total Score - Questions 1-9 2 04/2023 [facility] [place] of Occupat ional Health - Occupational Stress [...] place to sleep or slept in a skilled nursing (including now)? No 03/21/2023 Education Answer Date [...] 03/01/2023 90 90 Each Monae Jorgensen APRN, CD REACTOR OPERATOR HEAD [facility] #... SERVICE SPECIALIST documented in this encounter Plan of Treatment Upcoming Encounters Date Type Department Care Team (Late st Contact Info) Description 10/19/2024 10:00 AM CDT Office Visit [facility] [place] [address] Kasey Williamson, 2 [facility] [address] [place] [address] 11/02/2024 10:20 AM CDT Office Visit [facility] [place] [address] Kasey Williamson, 2 [facility] [address] [place] [address] documented as of this encounter Visit Diagnoses Diagnosis Moderate episode of recurrent major depressive disorder (HCC) documented in this encounter Additional Health Concerns Infection Onset Date Last Indicated Resolved Time COVID - 19 11/15/2023 11/15/2023 11/15/2023 11:4 7 PM CDT VRE 08/18/2024 08/18/2024 Assessment Noted Time PHQ-9 Depression Total Score: 2 03/23/19 24 8:19 AM FOOD SERVICE SPECIALIST documented as of this encounter Care Teams Student Services Vice President Relationship Specialty Start Date End Date Vaughn Bradshaw MD PCP - General Family Medicine 05/18/18 08/26/23 Kasey Williamson DO 2 [facility] [address] [place] [address] PCP - General Family Medicine 09/14/23 Claudia Horn APRN [address] [place] [address] Advanced Practice Nurse 08/16/18 Vicenta Raymond DO [address] [facility] [address] [place] [address] Consulting Physician Obstetrics & Gynecology 09/25/21 Gus Chowdary MD #2 [facility] [address] [address] Consulting Physician Colon and Rectal Surgery 07/23/22 Virginie Reyes, RN [place] Nurse Body Masker 09/14/23 09/14/23 Virginie Reyes, RN [place] Nurse Body Masker 11/19/23 11/29/23 Virginie Reyes, RN [place] Nurse Body Masker 12/07/23 05/15/24 Kelley Lopez, TELETYPE OPERATOR, CD REACTOR OPERATOR HEAD #2 [place] [facility], [facility] [address] [place] [address] Nurse Practitioner Advanced Practice Nurse 12/09/23 02/22/24 documented as of this encounter
--- OUTSIDE RECORDS SUMMARY | 2024-10-01 18:26 | XMS_ITS | Encounter Summary ---
Author Organization [facility] Address [address] [place] [address] Phone Care Team Providers Care Trail Maintenance Worker Name Role Phone Vaughn Bradshaw MD Primary Care Provider [phone] Claudia Horn INSTRUMENT REPAIR SPECIALIST Unavailable Vicenta Raymond DO Unavailable [phone] Gus Chowdary MD Unavailable Kasey Williamson DO Primary Care Provider [phone] Virginie Reyes RN Unavailable Unavailable Virginie Reyes RN Unavailable Unavailable Virginie Reyes RN Unavailable Unavailable Kelley Lopez INSTRUMENT REPAIR SPECIALIST, CUSTOMER SERVICE RECEPTIONIST Unavailable [phone] Reason for Visit * Reason Comments Medication Refill Encounter Details Date Type Department Care Team (Late st Contact Info) Description 03/02/2021 [facility]ill [facility] #2 [place] [id number] Vaughn Bradshaw MD #1 [place] [address] Medication Refill Social History Tobacco Use Types [...] COVID-19? No / Unsure 03/03/2021 1:05 PM AIRPLANE PATROLLER documented as of this encounter Miscellaneous Notes [...] Provider Dept 04/22/21 Appointment Vaughn Bradshaw MD [facility] Showing future appointments within next 90 days and meeting all other requirements Passed - Has an encounter in the past 6 months with a depression or anxiety visit diagnosis Passed - No PRN Use for Trazodone LANE PATROLLER documented in this encounter Plan of Treatment Upcoming Encounters Date Type Department Care Team (Late st Contact Info) Description 10/19/2024 10:00 AM CDT Office Visit [facility] #2 [place] [address] Kasey Williamson, DO 2 [facility] [address] [place] [address] 11/02/2024 10:20 AM CDT Office Visit [facility] #2 [facility] [address] Kasey Williamson, DO 2 [facility] [address] [place] [address] documented as of this encounter Visit Diagnoses Diagnosis Anxiety and depression Dysthymic disorder documented in this encounter Additional Health Concerns Infection Onset Date Last Indicated Resolved Time COVID - 19 03/31/2021 03/31/2021 03/31/2021 9:59 PM AIRPLANE PATROLLER COVID - 19 Confirmed 03/31/2021 03/31/2021 022 12:16 AM AIRPLANE PATROLLER COVID - 19 01/14/2022 01/14/2022 01/15/2022 7:59 AM CDT Respiratory Rule-Out 01/14/2022 01/14/2022 022 8:08 AM CDT COVID - 19 11/15/2023 11/15/2023 11/15/2023 11:4 7 PM CDT VRE 08/18/2024 08/18/2024 Assessment Noted Time PHQ-9 Depression Total Score: 0 10/04/19 21 9:00 AM CDT documented as of this encounter Care Teams Trail Maintenance Worker Relationship Specialty Start Date End Date Vaughn Bradshaw MD PCP - General Family Medicine 05/18/18 08/26/23 Kasey Williamson DO 2 [facility] [address] [place] [address] PCP - General Family Medicine 09/14/23 Claudia Horn APRN [address] [place] [address] Advanced Practice Nurse 08/16/18 Vicenta Raymond DO ONE PROFESSIONAL [facility] [address] [place] [address] Consulting Physician Obstetrics & Gynecology 09/25/21 Gus Chowdary MD #[address] [facility] [address] [place] [address] Consulting Physician Colon and Rectal Surgery 07/23/22 Virginie Reyes, RN [place] Nurse Consumer Credit Counselor 09/14/23 09/14/23 Virginie Reyes, RN [place] Nurse Consumer Credit Counselor 11/19/23 11/29/23 Virginie Reyes, RN [place] Nurse Consumer Credit Counselor 12/07/23 05/15/24 Kelley Lopez APRN, CUSTOMER SERVICE RECEPTIONIST #2 [facility] [address] [place] [address] Nurse Practitioner Advanced Practice Nurse 12/09/23 02/22/24 documented as of this encounter
--- OUTSIDE RECORDS SUMMARY | 2024-10-01 18:26 | XMS_ITS | Encounter Summary ---
Author Organization [facility] Address [address] [place] [address] Phone Care Team Providers Care Site Identification Specialist Name Role Phone Vaughn Bradshaw MD Primary Care Provider Claudia Horn SEWER PIPE CLEANER Unavailable [phone] Vicenta Raymond DO Unavailable [phone] Gus Chowdary MD Unavailable Kasey Williamson DO Primary Care Provider [phone] Virginie Reyes RN Unavailable Unavailable Virginie Reyes RN Unavailable Unavailable Virginie Reyes RN Unavailable Unavailable Kelley Lopez SEWER PIPE CLEANER, AIRPLANE REFUELER Unavailable [phone] Reason for Visit * Reason Comments Medication Refill Encounter Details Date Type Department Care Team (Late st Contact Info) Description 08/25/2023 Refill [facility] #2 [place] [address] Vaughn Bradshaw MD #1 [place] [address] Medication Refill Social History Tobacco Use Types Packs/Day Years Used Date Smoking Tobacco: Never Smokeless Tobacco: Never Alcohol Use Standard Drinks/Week Comments No 0 (1 standard drink = 0.6 oz pur e alcohol) [facility] Utilities Answer Date Recorded In [...] often do you attend chur ch or jain services? Never 08/04/2023 Do you belong to [...] Total Score - Questions 1-9 2 04/2023 [facility] [place] of Occupat ional Health - Occupational Stress [...] place to sleep or slept in a usp (including now)? No 08/04/2023 Education Answer Date [...] Office Visit Monae Jorgensen APRN, FIGUEROA [facility] 03/01/23 Office Visit Monae Jorgensen APRN, FIGUEROA [facility] [place] Showing recent visits within past 182 days and meeting all other requirements Future Appointments Date Type Provider Dept 09/14/23 Appointment Kasey Williamson DO [facility] [place] Showing future appointments within next 90 days and meeting all other requirements documented in this encounter Plan of Treatment Upcoming Encounters Date Type Department Care Team (Late st Contact Info) Description 10/19/2024 10:00 AM CDT Office Visit [facility] #2 [place] [address] Kasey Williamson, 2 [facility] [address] [place] [address] 11/02/2024 10:20 AM CDT Office Visit [facility] #2 [place] [address] Kasey Williamson DO 2 [facility] [address] [place] [address] documented as of this encounter Visit Diagnoses Diagnosis Type 2 diabetes mellitus with hyperglycemia, with long-term current use of insulin (HCC) documented in this encounter Additional Health Concerns Infection Onset Date Last Indicated Resolved Time COVID - 19 11/15/2023 11/15/2023 11/15/2023 11:4 7 PM CDT VRE 08/18/2024 08/18/2024 Assessment Noted Time PHQ-9 Depression Total Score: 2 03/23/19 24 8:19 AM SEQUINS SLINGER documented as of this encounter Care Teams Site Identification Specialist Relationship Specialty Start Date End Date Vaughn Bradshaw MD PCP - General Family Medicine 05/18/18 08/26/23 Kasey Williamson DO 2 [facility] [address] [place] [address] PCP - General Family Medicine 09/14/23 Claudia Horn APRN [address] [place] [address] Advanced Practice Nurse 08/16/18 Vicenta Raymond DO ONE PROFESSIONAL [facility] [address] [place] [address] Consulting Physician Obstetrics & Gynecology 09/25/21 Gsu Chowdary MD #2 [facility] [address] [place] [address] Consulting Physician Colon and Rectal Surgery 07/23/22 Virginie Reyes, RN [place] Nurse Switchboard Operator Supervisor 09/14/23 09/14/23 Virginie Reyes, RN [place] Nurse Switchboard Operator Supervisor 11/19/23 11/29/23 Virginie Reyes, RN [place] Nurse Switchboard Operator Supervisor 12/07/23 05/15/24 Kelley Lopez, SEWER PIPE CLEANER, AIRPLANE REFUELER #2 [facility] [address] [place] [address] Nurse Practitioner Advanced Practice Nurse 12/09/23 02/22/24 documented as of this encounter
--- OUTSIDE RECORDS SUMMARY | 2024-10-01 18:26 | XMS_ITS | Encounter Summary ---
Author Organization [facility] Address [address] [place] [address] Phone Care Team Providers Care Cattle Broker Name Role Phone Vaughn Bradshaw MD Primary Care Provider [phone] Claudia Horn GOVERNMENT INSTRUCTOR Unavailable [phone] Vicenta Raymond DO Unavailable Gus Chowdary MD Unavailable Kasey Williamson DO Primary Care Provider [phone] Virginie Reyes RN Unavailable Unavailable Virginie Reyes RN Unavailable Unavailable Virginie Reyes RN Unavailable Unavailable Kelley Lopez GOVERNMENT INSTRUCTOR, KNUCKLE BENDER Unavailable [phone] Reason for Visit * Reason Comments Medication Refill Encounter Details Date Type Department Care Team (Late st Contact Info) Description 02/27/2021 Refill [facility] #2 [place] [id number] Vaughn Bradshaw MD #1 [place] [address] Medication Refill Social History Tobacco Use Types [...] COVID-19? No / Unsure 02/24/2021 1:00 PM DEMOLITION ENGINEER documented as of this encounter Miscellaneous Notes * Telephone Encounter - Maira T Alejandre RN - 02/28/2021 8:15 AM [...] Provider Dept 04/22/21 Appointment Vaughn Bradshaw MD [facility] Showing future appointments within next 90 days and meeting all other requirements Passed - Has an encounter in the past 6 months with a depression or anxiety visit diagnosis LITION ENGINEER documented in this encounter Plan of Treatment Upcoming Encounters Date Type Department Care Team (Late st Contact Info) Description 10/19/2024 10:00 AM CDT Office Visit [facility] #2 [place] [address] Kasey Williamson, DO 2 [facility] [address] [place] [address] 11/02/2024 10:20 AM CDT Office Visit [facility] #2 [place] [address] Kasey Williamson, DO 2 [facility] [address] [place] [address] documented as of this encounter Visit Diagnoses Diagnosis Anxiety and depression Dysthymic disorder documented in this encounter Additional Health Concerns Infection Onset Date Last Indicated Resolved Time COVID - 19 03/31/2021 03/31/2021 03/31/2021 9:59 PM DEMOLITION ENGINEER COVID - 19 Confirmed 03/31/2021 03/31/2021 022 12:16 AM DEMOLITION ENGINEER COVID - 19 01/14/2022 01/14/2022 01/15/2022 7:59 AM CDT Respiratory Rule-Out 01/14/2022 01/14/2022 022 8:08 AM CDT COVID - 19 11/15/2023 11/15/2023 11/15/2023 11:4 7 PM CDT VRE 08/18/2024 08/18/2024 Assessment Noted Time PHQ-9 Depression Total Score: 0 10/04/19 9:00 AM CDT documented as of this encounter Care Teams Cattle Broker Relationship Specialty Start Date End Date Vaughn Bradshaw MD PCP - General Family Medicine 05/18/18 08/26/23 Kasey Williamson DO 2 [facility] [address] [place] [address] PCP - General Family Medicine 09/14/23 Claudia Horn, FRANCES [address] [place] [address] Advanced Practice Nurse 08/16/18 Vicenta Raymond DO ONE PROFESSIONAL [facility] [address] [place] [address] Consulting Physician Obstetrics & Gynecology 09/25/21 Gus Chowdary MD #2 [facility] [address] [place] [address] Consulting Physician Colon and Rectal Surgery 07/23/22 Virginie Reyes, RN [place] Nurse Field Mechanic/Site Lead 09/14/23 09/14/23 Virginie Reyes, RN [place] Nurse Field Mechanic/Site Lead 11/19/23 11/29/23 Virginie Reyes, RN [place] Nurse Field Mechanic/Site Lead 12/07/23 05/15/24 Kelley Lopez, GOVERNMENT INSTRUCTOR, KNUCKLE BENDER #2 [facility] [address] [place] [address] Nurse Practitioner Advanced Practice Nurse 12/09/23 02/22/24 documented as of this encounter
--- OUTSIDE RECORDS SUMMARY | 2024-10-01 18:26 | XMS_ITS | Encounter Summary ---
Author Organization [facility] Address [address] [place] [address] Phone Care Team Providers Care Camp Head Counselor Name Role Phone Vaughn Bradshaw MD Primary Care Provider [phone] Claudia Horn PUBLIC SAFETY DISPATCHER Unavailable [phone] Vicenta Raymond DO Unavailable [phone] Gus Chowdary MD Unavailable Kasey Williamson DO Primary Care Provider Virginie Reyes RN Unavailable Unavailable Virginie Reyes RN Unavailable Unavailable Virginie Reyes RN Unavailable Unavailable Kelley Lopez PUBLIC SAFETY DISPATCHER, OPTICAL GLASS SAWYER Unavailable [phone] Reason for Visit * Reason Comments Medication Refill Encounter Details Date Type Department Care Team (Late st Contact Info) Description 04/26/2023 Refill [facility] #2 [place] [address] Vaughn Bradshaw MD #1 [place] [address] Medication Refill Social History Tobacco Use Types Packs/Day Years Used Date Smoking Tobacco: Never Smokeless Tobacco: Never Alcohol Use Standard Drinks/Week Comments No 0 (1 standard drink = 0.6 oz pur e alcohol) [facility] Utilities Answer Date Recorded In the [...] often do you attend chur ch or rastafarian services? Never 04/27/2023 Do you belong to any clubs o r organizations such as anabaptism groups, unions, fraternal or athletic groups, or [...] Total Score - Questions 1-9 2 04/2023 [facility] of Occupat ional Health - Occupational Stress [...] in a care home (including now)? No 04/27/2023 Education Answer Date [...] of Assessment Author 0 04/27/2023 4:26 AM GAS BOOSTER ENGINEER Bryce, System Background * Q1: How often do you have a drink containing alcohol? Answer Date of Assessment Author Never 04/27/2023 4:26 AM GAS BOOSTER ENGINEER Bryce, System Background * Q2: How many drinks containing alcohol do you have on a typical day when you are drinking? Answer Date of Assessment Author Patient does not drink 04/27/2023 4:26 AM GAS BOOSTER ENGINEER My chart, System Background * Q3: How often do you have six or more drinks on one occasion? Answer Date of Assessment Author Giselle 04/27/2023 4:26 AM GAS BOOSTER ENGINEER to-[id number], System Background documented as of this encounter Miscellaneous Notes * Telephone Encounter - Maria T Alejandre, RN - 04/28/2023 11:50 AM CST Needs [...] Alfonso 12/07/22 Office Visit Vaughn Bradshaw MD [facility] [place] Showing recent visits within past 182 days and meeting all other requirements Future Appointments Date Type Provider Dept 05/04/23 Appointment Monae Jorgensen APRN, FIGUEROA [facility] Showing future appointments within next 90 days and meeting all other requirements Passed - Has an encounter in the past 6 months with a depression, anxiety, adjustment disorder, OCD, or PTSD visit diagnosis BOOSTER ENGINEER documented in this encounter Plan of Treatment Upcoming Encounters Date Type Department Care Team (Late st Contact Info) Description 10/19/2024 10:00 AM CDT Office Visit [facility] #2 [place] [address] Kasey Williamson, DO 2 [facility] [address] [place] [address] 11/02/2024 10:20 AM CDT Office Visit [facility] #2 [place] [address] Kasey Williamson, DO 2 [facility] [address] [place] [address] documented as of this encounter Visit Diagnoses Diagnosis Moderate episode of recurrent major depressive disorder (HCC) documented in this encounter Additional Health Concerns Infection Onset Date Last Indicated Resolved Time COVID - 19 11/15/2023 11/15/2023 11/15/2023 11:4 7 PM CDT VRE 08/18/2024 08/18/2024 Assessment Noted Time PHQ-9 Depression Total Score: 2 03/23/19 24 8:19 AM GAS BOOSTER ENGINEER documented as of this encounter Care Teams Camp Head Counselor Relationship Specialty Start Date End Date Vaughn Bradshaw MD PCP - General Family Medicine 05/18/18 08/26/23 Kasey Williamson DO 2 [facility] [address], [place]. [address] [place] [address] PCP - General Family Medicine 09/14/23 Claudia Horn APRN [address] [place] [address] Advanced Practice Nurse 08/16/18 Vicenta Raymond DO ONE PROFESSIONAL [facility] [address] [place] [address] Consulting Physician Obstetrics & Gynecology 09/25/21 Gus Chowdary MD #2 [facility] [address] [place] [address] Consulting Physician Colon and Rectal Surgery 07/23/22 Virginie Reyes, RN [place] Nurse Underground Conduit Installer 09/14/23 09/14/23 Virginie Reyes, RN [place] Nurse Underground Conduit Installer 11/19/23 11/29/23 Virginie Reyes, RN [place] Nurse Underground Conduit Installer 12/07/23 05/15/24 Kelley Lopez APRN, OPTICAL GLASS SAWYER #2 [facility] [address] [place] [address] Nurse Practitioner Advanced Practice Nurse 12/09/23 02/22/24 documented as of this encounter
--- OUTSIDE RECORDS SUMMARY | 2024-10-01 18:26 | XMS_ITS | Encounter Summary ---
Author Organization [facility] Address [address] [place] [address] Phone Care Team Providers Care Wire Communications Engineer Name Role Phone Vaughn Bradshaw MD Primary Care Provider [phone] Claudia Horn HEARING AID ASSISTANT Unavailable [phone] Vicenta Raymond DO Unavailable [phone] Gus Chowdary MD Unavailable Kasey Williamson DO Primary Care Provider [phone] Virginie Reyes RN Unavailable Unavailable Virginie Reyes RN Unavailable Unavailable Virginie Reyes RN Unavailable Unavailable Kelley Lopez HEARING AID ASSISTANT, JUNIOR PROJECT COORDINATOR Unavailable [phone] Encounter Details Date Type Department Care Team (Latest Contact Info) Description 01/21/2023 [facility] [address] [place] [address] Maria Teresa Myers, RN [place] [...] Description 10/19/2024 10:00 AM CDT Office Visit [facility] #2 [place] [address] Kasey Williamson, DO [address] [address] 11/02/2024 10:20 AM CDT Office Visit [facility] #2 [place] [address] Kasey Williamson, DO [address] [address] documented as of this encounter Visit Diagnoses Diagnosis Bicipital tendonitis of left shoulder- Primary documented in this encounter Additional Health Concerns Infection Onset Date Last Indicated Resolved Time COVID - 19 11/15/2023 11/15/2023 11/15/2023 11:4 7 PM CDT VRE 08/18/2024 08/18/2024 Assessment Noted Time PHQ-9 Depression Total Score: 0 12/08/19 23 8:37 AM CDT documented as of this encounter Care Teams Wire Communications Engineer Relationship Specialty Start Date End Date Vaughn Bradshaw MD PCP - General Family Medicine 05/18/18 08/26/23 Kasey Williamson DO [address] [facility] [address] [place] [address] PCP - General Family Medicine 09/14/23 Claudia Horn, HEARING AID ASSISTANT [address] [place] [address] Advanced Practice Nurse 08/16/18 Vicenta Raymond DO ONE PROFESSIONAL [facility] [address] [place] [address] Consulting Physician Obstetrics & Gynecology 09/25/21 Gus Chowdary MD #2 [facility] [address] [place] [address] Consulting Physician Colon and Rectal Surgery 07/23/22 Virginie Reyes, RN [place] Nurse Chemistry Quality Control Technician 09/14/23 09/14/23 Virginie Reyes, RN [place] Nurse Chemistry Quality Control Technician 11/19/23 11/29/23 Virginie Reyes, RN [place] Nurse Chemistry Quality Control Technician 12/07/23 05/15/24 Kelley Lopez, HEARING AID ASSISTANT, JUNIOR PROJECT COORDINATOR #[address] [facility] [address] [place] [address] Nurse Practitioner Advanced Practice Nurse 12/09/23 02/22/24 documented as of this encounter
--- OUTSIDE RECORDS SUMMARY | 2024-10-01 18:26 | XMS_ITS | Encounter Summary ---
Author Organization [facility] Address [address] [place] [address] Phone Care Team Providers Care Air Turning Machine Feeder Name Role Phone Claudia Horn PATIENT'S LIBRARIAN Unavailable Vicenta Raymond DO Unavailable Gus Chowdary MD Unavailable Kasey Williamson DO Primary Care Provider Virginie Reyes RN Unavailable Unavailable Reason for Visit * Reason Comments Medication Refill Encounter Details Date Type Department Care Team (Late st Contact Info) Description 05/03/2024 Refill [facility] - Family Medicine [facility] #2 [place] [id number] Vaughn Bradshaw MD #1 [place] [address] Medication Refill Social History Tobacco Use Types Packs/Day Years Used Date Smoking Tobacco: Never Smokeless Tobacco: Never Alcohol Use Standard Drinks/Week Comments No 0 (1 standard drink = 0.6 oz pur e alcohol) [facility] Utilities Answer Date Recorded In the past 12 months has th e electric, gas, oil, or water [facility] threatened to shut off services in your home? No 05/06/2024 Social Connection and Isolation Panel Answer Date Recorded In a typical week, how many times do you talk on the phone with family, friends, or neighbors? Once a week 05/06/2024 How often do you get togethe r with friends or relatives? More than three times a week 05/06/2024 How often do you attend chur ch or jainism services? Never 05/06/2024 Do you belong to any clubs o r organizations such as adventism groups, unions, fraternal or athletic groups, or [...] Total Score - Questions 1-9 0 11/20 [facility] - Occupational Stress Questionnaire Answer Date [...] in a senior care (including now)? No 08/04/2023 Housing Stability Vital Sign Answer Jose e Recorded In the last 12 months, was t here a time when you were not able to pay the mortgage or rent on time? No 05/06/2024 In the past 12 months, how m any times have you moved where you were living? 0 05/06/2024 At any time in the past 12 m [facility], were you homeless or living in a senior care (including now)? Yes 05/06/2024 Education Answer Date [...] of Assessment Author 0 05/06/2024 10:23 AM [employer] System Background * Q1: How often do you have a drink containing alcohol? Answer Date of Assessment Author Never 05/06/2024 10:23 AM [employer], System Background * Q2: How many drinks containing alcohol do you have on a typical day when you are drinking? Answer Date of Assessment Author Patient does not drink 05/06/2024 10:23 AM PACKAGE LIFT OPERATOR Jonny mcguireCrowdFeed System Background * Q3: How often do you have six or more drinks on one occasion? Answer Date of Assessment Author Never 05/06/2024 10:23 AM PACKAGE LIFT OPERATOR BryceCrowdFeed System Background documented as of this encounter Miscellaneous Notes * Telephone Encounter - Maria T Alejandre RN - 05/03/2024 12:00 PM CST Images from the original note were not included. Pramipexole Dihydrochloride Dispensed Days Supply Quantity Provider Pharmacy PRAMIPEXOLE 0.5MG TABLETS 04/26/2024 90 45 Each Vaughn Bradshaw MD [facility] #... AGE LIFT OPERATOR documented in this encounter Plan of Treatment Upcoming Encounters Date Type Department Care Team (Late st Contact Info) Description 10/19/2024 10:00 AM CDT Office Visit [facility] [address]2 [place] [address] Kasey Williamson, DO 2 [facility] [address] [place] [address] 11/02/2024 10:20 AM CDT Office Visit [facility] #2 [place] [address] Kasey Williamson, DO 2 [facility] [address] [place] [address] documented as of this encounter Visit Diagnoses Diagnosis Restless leg syndrome Restless legs syndrome (RLS) documented in this encounter Additional Health Concerns Infection Onset Date Last Indicated Resolved Time VRE 08/18/2024 08/18/2024 Assessment Noted Time PHQ-9 Depression Total Score: 0 12/07/19 1:29 PM CDT documented as of this encounter Care Teams Air Turning Machine Feeder Relationship Specialty Start Date End Date Kasey Williamson DO [address] [place] [address] PCP - General Family Medicine 09/14/23 Claudia Horn APRN [address] [place] [address] Advanced Practice Nurse 08/16/18 Vicenta Raymond DO [address] [place] [address] Consulting Physician Obstetrics & Gynecology 09/25/21 Gus Chowdary MD #2 [facility] [address] [place] [address] Consulting Physician Colon and Rectal Surgery 07/23/22 Virginie Reyes, FAYE [place] Nurse Computer Support Analyst 12/07/23 05/15/24 documented as of this encounter
--- OUTSIDE RECORDS SUMMARY | 2024-10-01 18:26 | XMS_ITS | Encounter Summary ---
Author Organization [facility] Address [address] [place] [address] Phone Care Team Providers Care Manager Emergency Name Role Phone Vaughn Bradshaw MD Primary Care Provider Claudia Horn DYNAMICS AX SOLUTION ARCHITECT Unavailable [phone] Vicenta Raymond DO Unavailable [phone] Gus Chowdary MD Unavailable Kasey Williamson DO Primary Care Provider [phone] Virginie Reyes RN Unavailable Unavailable Virginie Reyes RN Unavailable Unavailable Virginie Reyes RN Unavailable Unavailable Kelley Lopez DYNAMICS AX SOLUTION ARCHITECT, ATMOSPHERIC SCIENTIST Unavailable [phone] Reason for Visit * Reason Comments Medication Refill Encounter Details Date Type Department Care Team (Late st Contact Info) Description 06/25/2023 Refill [facility] #2 [place] [address] Vaughn Bradshaw MD #1 [place] [address] Medication Refill Social History Tobacco Use Types [...] often do you attend chur ch or latter-day services? Never 04/27/2023 Do you belong to [...] Total Score - Questions 1-9 2 04/2023 [facility] [place] of Occupat ional Health - Occupational Stress [...] [facility] - [place] #2 [place] [address] Kasey Williamson, DO [address] [facility] [place] [address] 11/02/2024 10:20 AM CDT Office Visit [facility] [place] #[address] [place] [address] Kasey Williamson, DO 2 [facility] [place] [address] documented as of this encounter Visit Diagnoses Diagnosis Other migraine without status migrainosus, not intractable documented in this encounter Additional Health Concerns Infection Onset Date Last Indicated Resolved Time COVID - 19 11/15/2023 11/15/2023 11/15/2023 11:4 7 PM CDT VRE 08/18/2024 08/18/2024 Assessment Noted Time PHQ-9 Depression Total Score: 2 03/23/19 8:19 AM EVENT MARKETING REPRESENTATIVE documented as of this encounter Care Teams Manager Emergency Relationship Specialty Start Date End Date Vaughn Bradshaw MD PCP - General Family Medicine 05/18/18 08/26/23 Kasey Williamson DO 2 [facility] [address] [address] PCP - General Family Medicine 09/14/23 Claudia Horn APRN [address] [place] [address] Advanced Practice Nurse 08/16/18 Vicenta Raymond DO ONE [address]ESSIONAL [address] [address] Consulting Physician Obstetrics & Gynecology 09/25/21 Gus Chowdary MD #[address] [facility] [place] [address] Consulting Physician Colon and Rectal Surgery 07/23/22 Virginie Reyes, RN [place] Nurse Health Commissioner 09/14/23 09/14/23 Virginie Reyes, RN [place] Nurse Health Commissioner 11/19/23 11/29/23 Virginie Reyes, RN [place] Nurse Health Commissioner 12/07/23 05/15/24 Kelley Lopez, DYNAMICS AX SOLUTION ARCHITECT, ATMOSPHERIC SCIENTIST [address] [facility] [place] [address] Nurse Practitioner Advanced Practice Nurse 12/09/23 02/22/24 documented as of this encounter
--- OUTSIDE RECORDS SUMMARY | 2024-10-01 18:26 | XMS_ITS | Encounter Summary ---
Author Organization [facility] Address [address] [place] [address] Phone Care Team Providers Care Acoustical Installer Name Role Phone Vaughn Bradshaw MD Primary Care Provider [phone] Claudia Horn PRICING CONSULTANT Unavailable [phone] Vicenta Raymond DO Unavailable [phone] Gus Chowdary MD Unavailable Kasey Williamson DO Primary Care Provider [phone] Virginie Reyes RN Unavailable Unavailable Virginie Reyes RN Unavailable Unavailable Virginie Reyes RN Unavailable Unavailable Kelley Lopez PRICING CONSULTANT, [place] Unavailable [phone] Reason for Visit * Reason Comments Medication Refill Encounter Details Date Type Department Care Team (Late st Contact Info) Description 05/12/2023 Refill [facility] #2 [place] [address] Vaughn Bradshaw MD #1 [place] [address] Medication Refill Social History Tobacco Use Types Packs/Day Years Used Date Smoking Tobacco: Never Smokeless Tobacco: Never Alcohol Use Standard Drinks/Week Comments No 0 (1 standard drink = 0.6 oz pur e alcohol) [facility] Utilities Answer Date Recorded In the [...] often do you attend chur ch or voodoo services? Never 04/27/2023 Do you belong to any clubs o r organizations such as lutheran groups, unions, fraternal or athletic groups, or [...] Total Score - Questions 1-9 2 04/2023 [facility] [place] of Occupat ional Health - Occupational Stress [...] place to sleep or slept in a mcc (including now)? No 04/27/2023 Education Answer Date [...] 05/07/2023 90 90 Each Vaughn Bradshaw MD [facility] #... SIMVASTATIN 40MG TABLETS 02/01/2023 90 90 Each Vaughn Bradshaw MD [facility] #... ENT PRODUCER documented in this encounter Plan of Treatment Upcoming Encounters Date Type Department Care Team (Late st Contact Info) Description 10/19/2024 10:00 AM CDT [facility] [place] [address] Kasey Williamson DO 2 [facility] [address] [place] [address] 11/02/2024 10:20 AM CDT Office [facility] [place] [address] Kaesy Williamson DO [address] [address] documented as of this encounter Visit Diagnoses Not on filedocumented in this encounter Additional Health Concerns Infection Onset Date Last Indicated Resolved Time COVID - 19 11/15/2023 11/15/2023 11/15/2023 11:4 7 PM CDT VRE 08/18/2024 08/18/2024 Assessment Noted Time PHQ-9 Depression Total Score: 2 03/23/19 24 8:19 AM CONTENT PRODUCER documented as of this encounter Care Teams Acoustical Installer Relationship Specialty Start Date End Date Vaughn Bradshaw MD PCP - General Family Medicine 05/18/18 08/26/23 Kasey iWlliamson DO 2 [facility] [address] [place] [address] PCP - General Family Medicine 09/14/23 Claudia Horn APRN [address] [place] [address] Advanced Practice Nurse 08/16/18 Vicenta Raymond DO ONE [address]ESSIONAL [facility] [address] [place] [address] Consulting Physician Obstetrics & Gynecology 09/25/21 Gus Chowdary MD #2 [facility] [address] [place] [address] Consulting Physician Colon and Rectal Surgery 07/23/22 Virginie Reyes, RN [place] Nurse Auto Polisher 09/14/23 09/14/23 Virginie Reyes, RN [place] Nurse Auto Polisher 11/19/23 11/29/23 Virginie Reyes, RN [place] Nurse Auto Polisher 12/07/23 05/15/24 Kelley Lopez, PRICING CONSULTANT, [place] #2 [facility] [address] [place] [address] Nurse Practitioner Advanced Practice Nurse 12/09/23 02/22/24 documented as of this encounter
--- OUTSIDE RECORDS SUMMARY | 2024-10-01 18:26 | XMS_ITS | Clinical Summary ---
Author Organization [facility] HealthCare Care Team Providers Care Rock Wool Applicator Name Role Phone Vicenta Raymond DO Unavailable [phone] Vaughn Bradshaw MD Primary Care Provider [phone] Allergies No known active allergies Medications albuterol [...] (02/20/2022): Added automatically from request for surgery [id number] Postmenopausal bleeding 09/04/202104/22 Overview (09/04/2021): Added automatically from request for surgery [id number] Encounters Date Type Department Care Team Description 08/18/2024 9:11 AM CDT - 08/18/2024 11:59 PM CDT Hospital Encounter [facility] Emergency, Room R Discharge Disposition: Discharge to home or self care from Last 3 Months Immunizations Immunization Administration Dates Next Due Hep [...] ABLATION LAPAROSCOPIC TOTAL HYSTERECTOMY 03/22/2022 - 03/21/2023 [facility]-BS for AUB, Path - adenomoysis Medical History [...] 4 4 Date Outcome GA Total Labor Labor//3rd Weight Sex Type Anes PTL A1 A5 [...] Comments Blood Pressure 138/82 05/08/2022 11:08 AM BLOW UP OPERATOR Pulse 94 03/24/2022 4:20 PM BLOW UP OPERATOR Temperature 36.9 C (98.5 F) 03/24/2022 4:20 PM BLOW UP OPERATOR Respiratory Rate 16 03/24/2022 4:20 PM BLOW UP OPERATOR Oxygen Saturation 97% 03/24/2022 4:20 PM BLOW UP OPERATOR Inhaled Oxygen Concentration - - Weight 111.9 kg (246 lb 9.6 oz) 023 11:08 AM BLOW UP OPERATOR Height 154.9 cm (5' 1) 03/24/2022 6:50 AM BLOW UP OPERATOR Body Mass Index 46.59 03/24/2022 6:50 AM BLOW UP OPERATOR Plan of Treatment Health Maintenance Due Date [...] 2 - PCV) 02/17/2019 02/17/2018 Covid-19 Vaccine ( - 2023-2 5 season) 2023 05/17/2021, 11/16/2020, 10/19/2020 Hemoglobin A1C 01/05/2024 07/06/2023, 09/24/2021 Breast Cancer Screening-Mammogram 07/28/2024 07/29/2023, 01/06/2021, 01/25/2018 Influenza Vaccine (#1) 2024 3, 02/03/2022, 01/20/2021, Additional history exists DTaP/Tdap/Td Vaccine [...] her next mammogram. Electronically signed by: GEORGIA SMITH SAJAN HERNANDEZ Narrative 07/29/2023 8:47 AM CDT EXAMINATION: SCREENING MAMMOGRAM [...] Most Recently Relevant to Health Maintenance Insurance [facility] MEDICARE O IDPA HU[employer] MEDICARE HMO Care Teams Rock Wool Applicator Relationship Specialty Start Date End Date Vaughn Bradshaw MD [address] [address] [place] [address] PCP - General Family Medicine 12/30/21 Vicenta Raymond DO [address] [place] [address] Consulting Physician Obstetrics and Gynecology 09/09/21
--- OUTSIDE RECORDS SUMMARY | 2024-10-01 18:26 | XMS_ITS | Encounter Summary ---
Author Organization [facility] Address [address] [place] [address] Phone Care Team Providers Care Commercial Internship Name Role Phone Vaughn Bradshaw MD Primary Care Provider [phone] Claudia Horn NEWSPAPER PHOTOGRAPHER Unavailable [phone] Vicenta Raymond DO Unavailable [phone] Gus Chowdary MD Unavailable Kasey Williamson DO Primary Care Provider [phone] Virginie Reyes RN Unavailable Unavailable Virginie Reyes RN Unavailable Unavailable Virginie Reyes RN Unavailable Unavailable Kelley Lopez NEWSPAPER PHOTOGRAPHER, ROLLER STRUCTURAL MILL Unavailable [phone] Reason for Visit * Reason Onset Date Comments Sinus Pain 02/12/2021 Encounter Details Date Type Department Care Team (Late st Contact Info) Description 02/12/2021 Nurse Triage [facility] [place] [facility] [address] [place] [address] Vaughn Bradshaw MD [address] [place] [address] Sinus Pain Social History Tobacco Use Types [...] COVID-19? No / Unsure 02/12/2021 11:05 AM RESIDENTIAL REAL ESTATE APPRAISER documented as of this encounter Miscellaneous Notes * Telephone Encounter - Allison Del Rio RN - 02/17/2021 9:40 AM RESIDENTIAL REAL ESTATE APPRAISER Sent patient Hands-On Mobile message to let her know DENTIAL REAL ESTATE APPRAISER * Telephone Encounter - Vaughn Bradshaw MD - 02/16/2021 9:15 PM CST Can go to prompt care or be seen. DENTIAL REAL ESTATE APPRAISER * Telephone Encounter - Rhianna Rivers - 02/12/2021 11:02 AM CST Reason for Disposition Sinus congestion as part of a cold, present < 10 days Protocols used: SINUS PAIN OR [id number] S: Sinus pain, cough, B: Sinus pain/congestion [...] without having to see first. Pharmacy verified. DENTIAL REAL ESTATE APPRAISER documented in this encounter Plan of Treatment Upcoming Encounters Date Type Department Care Team (Late st Contact Info) Description 10/19/2024 10:00 AM CDT Office Visit [facility] #2 [place] [address] Kasey Williamson, DO 2 [facility] [address] [place] [address] 11/02/2024 10:20 AM CDT Office Visit [facility] #2 [place] [address] Kasey Williamson, DO 2 [facility] [address] [place] [address] documented as of this encounter Visit Diagnoses Not on filedocumented in this encounter Additional Health Concerns Infection Onset Date Last Indicated Resolved Time COVID - 19 03/31/2021 03/31/2021 03/31/2021 9:59 PM RESIDENTIAL REAL ESTATE APPRAISER COVID - 19 Confirmed 03/31/2021 03/31/2021 022 12:16 AM RESIDENTIAL REAL ESTATE APPRAISER COVID - 19 01/14/2022 01/14/2022 01/15/2022 7:59 AM CDT Respiratory Rule-Out 01/14/2022 01/14/2022 022 8:08 AM CDT COVID - 19 11/15/2023 11/15/2023 11/15/2023 11:4 7 PM CDT VRE 08/18/2024 08/18/2024 Assessment Noted Time PHQ-9 Depression Total Score: 0 10/04/19 21 9:00 AM CDT documented as of this encounter Care Teams Commercial Internship Relationship Specialty Start Date End Date Vaughn Bradshaw MD PCP - General Family Medicine 05/18/18 08/26/23 Kasey Williamson DO [address] [facility] [address] [place] [address] PCP - General Family Medicine 09/14/23 Claudia Horn, NEWSPAPER PHOTOGRAPHER [address] [place] [address] Advanced Practice Nurse 08/16/18 Vicenta Raymond DO ONE PROFESSIONAL [facility] [address] [place] [address] Consulting Physician Obstetrics & Gynecology 09/25/21 Gus Chowdary MD #[address] [facility] [address] [place] [address] Consulting Physician Colon and Rectal Surgery 07/23/22 Virginie Reyes, RN [place] Nurse Senior Sales Operations Analyst 09/14/23 09/14/23 Virginie Reyes, RN [place] Nurse Senior Sales Operations Analyst 11/19/23 11/29/23 Virginie Reyes, RN [place] Nurse Senior Sales Operations Analyst 12/07/23 05/15/24 Kelley Lopez, NEWSPAPER PHOTOGRAPHER, ROLLER STRUCTURAL MILL [address] [facility] [place] [address] Nurse Practitioner Advanced Practice Nurse 12/09/23 02/22/24 documented as of this encounter
--- OUTSIDE RECORDS SUMMARY | 2024-10-01 18:26 | XMS_ITS | Encounter Summary ---
Author Organization [facility] Address [address] [place] [address] Phone Care Team Providers Care Statement Clerk Name Role Phone Vaughn Bradshaw MD Primary Care Provider [phone] Claudia Horn CHIEF PRIVACY OFFICER Unavailable Vcienta Raymond DO Unavailable [phone] Gus Chowdary MD Unavailable Kasey Williamson DO Primary Care Provider [phone] Virginie Reyes RN Unavailable Unavailable Virginie Reyes RN Unavailable Unavailable Virginie Reyes RN Unavailable Unavailable Kelley Lopez CHIEF PRIVACY OFFICER, STRUCTURAL IRON WORKER Unavailable [phone] Reason for Visit * Reason Comments Medication Refill Encounter Details Date Type Department Care Team (Late st Contact Info) Description 02/01/2023 Refill [facility] #2 [place] [address] Vaughn Bradshaw MD #[address] [place] [address] Medication Refill Social History Tobacco Use Types [...] Coronavirus/COVID-19? No / Unsure 01/28/2023 6:21 AM PURE PAK MACHINE OPERATOR documented as of this encounter [...] [facility] 05/27/22 Office Visit Vivian Tucker, CHIEF PRIVACY OFFICER, STRUCTURAL IRON WORKER [facility] [place] 02/03/22 Office Visit Vaughn Bradshaw MD [facility] [place] Showing recent visits within past 365 days and meeting all other requirements Future Appointments Date Type Provider Dept 04/12/23 Appointment Vaughn Bradshaw MD [facility] Showing [...] Range Status 12/07/2022 94 <130 mg/dL Final PAK MACHINE OPERATOR documented in this encounter Plan of Treatment Upcoming Encounters Date Type Department Care Team (Late st Contact Info) Description 10/19/2024 10:00 AM CDT Office Visit [facility] #2 [place] [address] Kasye Williamson, DO 2 [facility] [address] [place] [address] 11/02/2024 10:20 AM CDT Office Visit [facility] #2 [place] [address] Kasey Williamson, DO 2 [facility] [address] [place] [address] documented as of this encounter Visit Diagnoses Not on filedocumented in this encounter Additional Health Concerns Infection Onset Date Last Indicated Resolved Time COVID - 19 11/15/2023 11/15/2023 11/15/2023 11:4 7 PM CDT VRE 08/18/2024 08/18/2024 Assessment Noted Time PHQ-9 Depression Total Score: 0 12/08/19 8:37 AM CDT documented as of this encounter Care Teams Statement Clerk Relationship Specialty Start Date End Date Vaughn Bradshaw MD PCP - General Family Medicine 05/18/18 08/26/23 Kasey Williamson DO 2 [facility] [place] [address] [place] [address] PCP - General Family Medicine 09/14/23 Claudia Horn APRN [address] [place] [address] Advanced Practice Nurse 08/16/18 Vicenta Raymond DO ONE PROFESSIONAL [facility] [address] [place] [address] Consulting Physician Obstetrics & Gynecology 09/25/21 Gus Chowdary MD #2 [facility] [address] [place] [address] Consulting Physician Colon and Rectal Surgery 07/23/22 Virginie Reyes, FAYE [place] Nurse Geospatial Systems Integrator 09/14/23 09/14/23 Virginie Reyes, RN [place] Nurse Geospatial Systems Integrator 11/19/23 11/29/23 Virginie Reyes, RN [place] Nurse Geospatial Systems Integrator 12/07/23 05/15/24 Kelley Lopez APRN, STRUCTURAL IRON WORKER #2 [facility] [address] [place] [address] Nurse Practitioner Advanced Practice Nurse 12/09/23 02/22/24 documented as of this encounter
--- OUTSIDE RECORDS SUMMARY | 2024-10-01 18:26 | XMS_ITS | Encounter Summary ---
Author Organization [facility] Address [address] [place] [address] Phone Care Team Providers Care Freelance Writer Name Role Phone Vaughn Bradshaw MD Primary Care Provider [phone] Claudia Horn MEDICAL LAB SCIENTIST Unavailable Vicenta Raymond DO Unavailable [phone] Gus Chowdary MD Unavailable Kasey Williamson DO Primary Care Provider [phone] Virginie Reyes RN Unavailable Unavailable Virginie Reyes RN Unavailable Unavailable Virginie Reyes RN Unavailable Unavailable Kelley Lopez MEDICAL LAB SCIENTIST, HAWK MISSILE SYSTEM CREWMEMBER Unavailable [phone] Reason for Visit * Reason Comments Medication Refill Encounter Details Date Type Department Care Team (Late st Contact Info) Description 11/29/2020 Refill [facility] #2 [place] [address] Vaughn Bradshaw MD #1 [place] [address] Medication Refill Social History Tobacco Use Types [...] Provider Dept 01/03/21 Appointment Vaughn Bradshaw MD [facility] Showing future appointments within next 90 days and meeting all other requirements Passed - Has an encounter in the past 6 months with a depression or anxiety visit diagnosis documented in this encounter Plan of Treatment Upcoming Encounters Date Type Department Care Team (Late st Contact Info) Description 10/19/2024 10:00 AM CDT Office Visit [facility] #2 [place] [address] Kasey Williamson, DO 2 [facility] [address] [place] [address] 11/02/2024 10:20 AM CDT Office Visit [facility] #2 [place] [address] Kasey Williamson, DO 2 [facility] [address] [place] [address] documented as of this encounter Visit Diagnoses Diagnosis Anxiety and depression Dysthymic disorder documented in this encounter Additional Health Concerns Infection Onset Date Last Indicated Resolved Time COVID - 19 03/31/2021 03/31/2021 03/31/2021 9:59 PM COKE DRAWER COVID - 19 Confirmed 03/31/2021 03/31/2021 022 12:16 AM COKE DRAWER COVID - 19 01/14/2022 01/14/2022 01/15/2022 7:59 AM CDT Respiratory Rule-Out 01/14/2022 01/14/2022 022 8:08 AM CDT COVID - 19 11/15/2023 11/15/2023 11/15/2023 11:4 7 PM CDT VRE 08/18/2024 08/18/2024 Assessment Noted Time PHQ-9 Depression Total Score: 0 10/04/19 9:00 AM CDT documented as of this encounter Care Teams Freelance Writer Relationship Specialty Start Date End Date Vaughn Bradshaw MD PCP - General Family Medicine 05/18/18 08/26/23 Kasey Williamson DO [address] [facility] [place] [address] PCP - General Family Medicine 09/14/23 Claudia Horn APRN [address] [place] [address] Advanced Practice Nurse 08/16/18 Vicenta Raymond DO ONE PROFESSIONAL [facility] [address] [place] [address] Consulting Physician Obstetrics & Gynecology 09/25/21 Gus Chowdary MD #[address] [facility] [address] [place] [address] Consulting Physician Colon and Rectal Surgery 07/23/22 Virginie Reyes, RN [place] Nurse Precision Structural Metal Fitter 09/14/23 09/14/23 Virginie Reyes, RN [place] Nurse Precision Structural Metal Fitter 11/19/23 11/29/23 Virginie Reyes, RN [place] Nurse Precision Structural Metal Fitter 12/07/23 05/15/24 Kelley Lopez, MEDICAL LAB SCIENTIST, HAWK MISSILE SYSTEM CREWMEMBER #[address] [facility] [address] [place] [address] Nurse Practitioner Advanced Practice Nurse 12/09/23 02/22/24 documented as of this encounter
--- OUTSIDE RECORDS SUMMARY | 2024-10-01 18:26 | XMS_ITS | Encounter Summary ---
Author Organization [facility] Address [address] [place] [address] Phone Care Team Providers Care Internet Marketing Coordinator Name Role Phone Vaughn Bradshaw MD Primary Care Provider [phone] Claudia Horn LUG BREAKER AND WIRE PULLER Unavailable Vicenta Raymond DO Unavailable [phone] Gus Chowdary MD Unavailable Kasey Williamson DO Primary Care Provider [phone] Virginie Reyes RN Unavailable Unavailable Virginie Reyes RN Unavailable Unavailable Virginie Reyes RN Unavailable Unavailable Kelley Lopez LUG BREAKER AND WIRE PULLER, DIRECTOR SELECTION AND ADMINISTRATION Unavailable [phone] Reason for Visit * Reason Comments Medication Refill Encounter Details Date Type Department Care Team (Late st Contact Info) Description 10/19/2020 Refill [facility] #2 [place] [address] Vaughn Bradshaw MD #1 [place] [address] Medication Refill Social History Tobacco Use Types [...] hyperglycemia, with long-term current use of insulin ([facility]) [facility] Medical [facility] - Family [facility] Vaughn Gutierrez MD 1 year ago Type 2 diabetes mellitus with hyperglycemia, with long-term current use of insulin (HCC) [facility] Medical [facility] Family [facility] Vaughn Gutierrez MD 1 year ago Eczema, unspecified type [facility] Medical [facility] Vaughn Gutierrez MD 1 year ago Uncontrolled type 2 diabetes mellitus with hyperglycemia (HCC) [facility] Vaughn Gutierrez MD 2 years ago Diabetes mellitus due to underlying condition with hyperosmolarity without coma, without long-term current use of insulin (HCC) [facility] Vaughn Figueroa MD Upcoming Appointments Future Appointments In [address] Mammography, [facility] In 2 months Vaughn Bradshaw MD [facility] Kaden, [facility] PERSONAL LINES AGENT - Recent and Past Visits Recent Visits Date Type Provider Dept 10/03/20 [facility] visits within past 460 days [...] Description 10/19/2024 10:00 AM CDT Office Visit [facility] #2 [place] [address] Kasey Williamson, DO 2 [facility] [address] [place] [address] 11/02/2024 10:20 AM CDT Office Visit [facility] [address] [place] [address] Kasey Williamson, DO 2 [facility] [address] [place] [address] documented as of this encounter Visit Diagnoses Diagnosis Other migraine without status migrainosus, not intractable documented in this encounter Additional Health Concerns Infection Onset Date Last Indicated Resolved Time COVID - 19 03/31/2021 03/31/2021 03/31/2021 9:59 PM SITE INSPECTOR COVID - 19 Confirmed 03/31/2021 03/31/2021 022 12:16 AM SITE INSPECTOR COVID - 19 01/14/2022 01/14/2022 01/15/2022 7:59 AM CDT Respiratory Rule-Out 01/14/2022 01/14/2022 022 8:08 AM CDT COVID - 19 11/15/2023 11/15/2023 11/15/2023 11:4 7 PM CDT VRE 08/18/2024 08/18/2024 Assessment Noted Time PHQ-9 Depression Total Score: 0 10/04/19 21 9:00 AM CDT documented as of this encounter Care Teams Internet Marketing Coordinator Relationship Specialty Start Date End Date Vaughn Bradshaw MD PCP - General Family Medicine 05/18/18 08/26/23 Kasey Williamson DO [facility] [address] [place] [address] PCP - General Family Medicine 09/14/23 Claudia Horn, LUG BREAKER AND WIRE PULLER [address] [place] [address] Advanced Practice Nurse 08/16/18 Vicenta Raymond DO [address] [facility] [address] [place] [address] Consulting Physician Obstetrics & Gynecology 09/25/21 Gus Chowdary MD #[address] [facility] [address] [place] [address] Consulting Physician Colon and Rectal Surgery 07/23/22 Virgiine Reyes RN [place] Nurse Classification Clerk 09/14/23 09/14/23 Virginie Reyes, RN [place] Nurse Classification Clerk 11/19/23 11/29/23 Virginie Reyes, RN [place] Nurse Classification Clerk 12/07/23 05/15/24 Kelley Lopez, LUG BREAKER AND WIRE PULLER, DIRECTOR SELECTION AND ADMINISTRATION #2 [facility], [address] [place] [address] Nurse Practitioner Advanced Practice Nurse 12/09/23 02/22/24 documented as of this encounter
--- OUTSIDE RECORDS SUMMARY | 2024-10-01 18:26 | XMS_ITS | Encounter Summary ---
Author Organization [facility] Address [address] [place] [address] Phone Care Team Providers Care Education General Manager Name Role Phone Claudia Horn AIR TRANSPORTATION PROVIDER Unavailable Vicenta Raymond DO Unavailable Gus Chowdary MD Unavailable Kasey Williamson DO Primary Care Provider [phone] Virginie Reyes RN Unavailable Unavailable Reason for Visit * Reason Comments Medication Refill Encounter Details Date Type Department Care Team (Late st Contact Info) Description 04/15/2024 Refill [facility] - [facility] #2 [place] [id number] Vaughn Bradshaw MD #1 [place] [address] Medication Refill Social History Tobacco Use Types Packs/Day Years Used Date Smoking Tobacco: Never Smokeless Tobacco: Never Alcohol Use Standard Drinks/Week Comments No 0 (1 standard drink = 0.6 oz pur e alcohol) [facility] Utilities Answer Date Recorded In the past 12 months has th e electric, gas, oil, or water Eved threatened to shut off services in your home? No 12/07/2023 Social Connection and Isolation Panel Answer Date Recorded In a typical week, how many times do you talk on the phone with family, friends, or neighbors? Once a week 12/07/2023 How often do you get together with friends or re latives? Once a week 12/07/2023 How often do you attend roman catholic or mormon serv ices? Never 12/07/2023 Do you belong to any clubs o r organizations such as roman catholic groups, unions, fraternal or athletic groups, or [...] Total Score - Questions 1-9 0 11/20 [facility] - Occupational Stress Questionnaire Answer Date [...] place to sleep or slept in a [place] health care facility (including now)? No 08/04/2023 Housing Stability Vital Sign Answer Jose e Recorded In the last 12 months, was t here a time when you were not able to pay the mortgage or rent on time? No 12/07/2023 In the past 12 months, how m any times have you moved where you were living? 0 12/07/2023 At any time in the past 12 m [facility], were you homeless or living in a [place] health care facility (including now)? No 12/07/2023 Education Answer Date [...] [place] RN - 04/15/2024 12:02 PM LAUNDRY MARKER SUPERVISOR Signed 5 days ago (04/10/2024): busPIRone HCl 7.5 MG Tablet Sig: Take 1 Tablet by mouth 2 times daily. Disp: 180 Tablet Refills: 2 Signed by: Kasey Williamson DO DRY MARKER SUPERVISOR documented in this encounter Plan of Treatment Upcoming Encounters Date Type Department Care Team (Late st Contact Info) Description 10/19/2024 10:00 AM CDT Office Visit [facility] #2 [place] [address] Kasey Williamson DO [address] [address] 11/02/2024 10:20 AM CDT Office Visit [facility] #2 [place] [address] Kasey Williamson DO [address] [address] documented as of this encounter Visit Diagnoses Diagnosis Anxiety and depression Dysthymic disorder documented in this encounter Additional Health Concerns Infection Onset Date Last Indicated Resolved Time VRE 08/18/2024 08/18/2024 Assessment Noted Time PHQ-9 Depression Total Score: 0 12/07/19 24 1:29 PM CDT documented as of this encounter Care Teams Education General Manager Relationship Specialty Start Date End Date Kasey Williamson DO 2 [facility] [address] [address] PCP - General Family Medicine 09/14/23 Claudia Horn, AIR TRANSPORTATION PROVIDER [address] [place] [address] Advanced Practice Nurse 08/16/18 Vicenta Raymond DO [address] [place] [address] [place] [address] Consulting Physician Obstetrics & Gynecology 09/25/21 Gus Chowdary MD #2 [facility] [address] [place] [address] Consulting Physician Colon and Rectal Surgery 07/23/22 Virginie Reyes RN [place] Nurse Supervisor Mold Construction 12/07/23 05/15/24 documented as of this encounter
--- OUTSIDE RECORDS SUMMARY | 2024-10-01 18:27 | XMS_ITS | Encounter Summary ---
Author Organization [facility] Address [address] [place] [address] Phone Care Team Providers Care Staff Development Manager Name Role Phone Vaughn Bradshaw MD Primary Care Provider [phone] Claudia Horn TELEPHONE SOLICITOR SUPERVISOR Unavailable [phone] Vicenta Raymond DO Unavailable [phone] Gus Chowdary MD Unavailable Kasey Williamson DO Primary Care Provider [phone] Virginie Reyes RN Unavailable Unavailable Virginie Reyes RN Unavailable Unavailable Virginie Reyes RN Unavailable Unavailable Kelley Lopez TELEPHONE SOLICITOR SUPERVISOR, DERMATOLOGY SALES REPRESENTATIVE Unavailable [phone] Reason for Visit * Reason Comments Medication Refill Encounter Details Date Type Department Care Team (Late st Contact Info) Description 07/22/2021 Refill [facility] #2 [place] [address] Vaughn Bradshaw MD #1 [place] [address] Medication Refill Social History Tobacco Use Types [...] [place] 04/21/21 Telemedicine Monae Jorgensen APRN, FIGUEROA [facility] [place] 02/24/21 Office Visit Vaughn Bradshaw MD [facility] [place] Showing recent visits [...] Description 10/19/2024 10:00 AM CDT Office Visit [facility] #2 [place] [address] Kasey Williamson, DO 2 [facility] [address] [place] [address] 11/02/2024 10:20 AM CDT Office Visit [facility] #2 [place] [address] Kasey Williamson, DO 2 [facility] [address] [place] [address] documented as of this encounter Visit Diagnoses [...] as of this encounter Care Teams Staff Development Manager Relationship Specialty Start Date End Date Vaughn Bradshaw MD PCP - General Family Medicine 05/18/18 08/26/23 Kasey Williamson DO [address] [facility] [place] [place] [address] PCP - General Family Medicine 09/14/23 Claudia Horn APRN [address] [place] [address] Advanced Practice Nurse 08/16/18 Vicenta Raymond, DO ONE PROFESSIONAL [facility] [address] [place] [address] Consulting Physician Obstetrics & Gynecology 09/25/21 Gus Chowdary MD #[address] [facility] [address] [place] [address] Consulting Physician Colon and Rectal Surgery 07/23/22 Virginie Reyes, RN [place] Nurse Freight Receiver 09/14/23 09/14/23 Virginie Reyes, RN [place] Nurse Freight Receiver 11/19/23 11/29/23 Virginie Reyes, RN [place] Nurse Freight Receiver 12/07/23 05/15/24 Kelley Lopez, TELEPHONE SOLICITOR SUPERVISOR, DERMATOLOGY SALES REPRESENTATIVE #[address] [facility], [address] [place] [address] Nurse Practitioner Advanced Practice Nurse 12/09/23 02/22/24 documented as of this encounter
--- OUTSIDE RECORDS SUMMARY | 2024-10-01 18:27 | XMS_ITS | Encounter Summary ---
Author Organization [facility] Address [address] [place] [address] Phone Care Team Providers Care Grind Operator Name Role Phone Vaughn Bradshaw MD Primary Care Provider [phone] Claudia Horn BIOFUELS PLANT SUPERINTENDENT Unavailable Vicenta Raymond DO Unavailable Gus Chowdary MD Unavailable Kasey Williamson DO Primary Care Provider Virginie Reyes RN Unavailable Unavailable Virginie Reyes RN Unavailable Unavailable Virginie Reyes RN Unavailable Unavailable Kelley Lopez BIOFUELS PLANT SUPERINTENDENT, STOKER MECHANIC Unavailable [phone] Reason for Visit * Reason Comments Medication Refill Encounter Details Date Type Department Care Team (Late st Contact Info) Description 12/09/2021 Refill [facility] #2 [place] [address] Vaughn Bradshaw MD #1 [place] [address] Medication Refill Social History Tobacco Use Types [...] Pending Prescriptions Disp Refills ergocalciferol (VITAMIN D) 36434 UNIT Capsule [Pharmacy Med Name: VITAMIN D2 [...] [place] 04/21/21 Telemedicine Monae Jorgensen APRN, FIGUEROA [facility] 02/24/21 Office Visit Vaughn Bradshaw MD [facility] 01/20/21 Office Visit Vaughn Bradshaw MD [facility] 12/09/20 Office Visit Vaughn Bradshaw MD [facility] [...] [place] 04/21/21 Telemedicine Monae Jorgensen APRN, FIGUEROA [facility] [place] 02/24/21 Office Visit Vaughn Bradshaw MD [facility] 01/20/21 Office Visit Vaughn Bradshaw MD [facility] [place] 12/09/20 Office Visit Vaughn Bradshaw, [facility] K[place] Showing recent visits within past 365 days and meeting all other requirements Future Appointments No visits were found meeting these conditions. Showing future appointments within next 90 days and meeting all other requirements documented in this encounter Plan of Treatment Upcoming Encounters Date Type Department Care Team (Late st Contact Info) Description 10/19/2024 10:00 AM CDT Office Visit [facility] #2 [place] [address] Kasey Williamson, DO [address] [address] 11/02/2024 10:20 AM CDT Office Visit [facility] #2 [place] [address] Kasey Williamson, DO [address] [address] documented as of this encounter Visit Diagnoses [...] documented as of this encounter Care Teams Grind Operator Relationship Specialty Start Date End Date Vaughn Bradshaw MD PCP - General Family Medicine 05/18/18 08/26/23 Kasey Williamson DO [facility] [address] [place] [address] PCP - General Family Medicine 09/14/23 Claudia Horn APRN [address] [place] [address] Advanced Practice Nurse 08/16/18 Vicenta Raymond DO ONE PROFESSIONAL [facility] [address] [place] [address] Consulting Physician Obstetrics & Gynecology 09/25/21 Gus Chowdary MD #2 [facility] [address] [place] [address] Consulting Physician Colon and Rectal Surgery 07/23/22 Virginie Reyes RN [place] Nurse Gmat Instructor 09/14/23 09/14/23 Virginie Reyes RN [place] Nurse Gmat Instructor 11/19/23 11/29/23 Virginie Reyes RN [place] Nurse Gmat Instructor 12/07/23 05/15/24 Kelley Lopez, BIOFUELS PLANT SUPERINTENDENT, STOKER MECHANIC #2 [facility], [address] [place] [address] Nurse Practitioner Advanced Practice Nurse 12/09/23 02/22/24 documented as of this encounter
--- OUTSIDE RECORDS SUMMARY | 2024-10-01 18:27 | XMS_ITS | Encounter Summary ---
Author Organization [facility] Address [address] [place] [address] Phone Care Team Providers Care Hospital Chief Executive Officer Name Role Phone Vaughn Bradshaw MD Primary Care Provider [phone] Claudia Horn SOLAR MECHANICAL ENGINEER Unavailable [phone] Vicenta Raymond DO Unavailable [phone] Gus Chowdary MD Unavailable Kasey Williamson DO Primary Care Provider [phone] Virginie Reyes RN Unavailable Unavailable Virginie Reyes RN Unavailable Unavailable Virginie Reyes RN Unavailable Unavailable Kelley Lopez SOLAR MECHANICAL ENGINEER, PIPE STRIPPER Unavailable [phone] Reason for Visit * Reason Comments Medication Refill Encounter Details Date Type Department Care Team (Late st Contact Info) Description 06/23/2022 Refill [facility] #2 [place] [address] Vaughn Bradshaw MD #1 [place] [address] Medication Refill Social History Tobacco Use Types [...] Provider Dept 05/27/22 Office Visit Vivian Tucker, SOLAR MECHANICAL ENGINEER, PIPE STRIPPER [facility] [place] 02/03/22 Office Visit Vaughn Bradshaw MD [facility] 12/16/21 Office Visit Vaughn Bradshaw MD [facility] 11/04/21 Office Visit BradshawVaughn covarrubias MD [facility] 07/04/21 Office Visit Vaughn Bradshaw MD [facility] Showing recent visits within past 365 days and meeting all other requirements Future Appointments Date Type Provider Dept 07/02/22 Appointment Vaughn Bradshaw MD [facility] Showing [...] Type Provider Dept 05/27/22 Office Visit Vivian Tucker APRN, CNP [facility] 02/03/22 Office Visit Vaughn Bradshaw MD [facility] 12/16/21 Office Visit Vaughn Bradshaw MD [facility] 11/04/21 Office Visit Vaughn Bradshaw MD [facility] Showing recent visits within past 270 days and meeting all other requirements Future Appointments Date Type Provider Dept 07/02/22 Appointment Vaughn Bradshaw MD [facility] Showing [...] 06/16/2022 90 90 Tablet Vaughn Bradshaw MD [facility] #... NADOLOL 20MG TABLETS 03/16/2022 90 90 Each Vaughn Bradshaw MD [facility] #... Pramipexole Dihydrochloride Dispensed Days Supply Quantity Provider Pharmacy pramipexole 0.5 mg tablet 06/16/2022 90 45 Tablet Vaughn Bradshaw MD [facility]... PRAMIPEXOLE 0.5MG TABLETS 03/20/2022 90 45 Each [facility] documented in this encounter Plan of Treatment Upcoming Encounters Date Type Department Care Team (Late st Contact Info) Description 10/19/2024 10:00 AM CDT [facility] [place] [facility] [place] [address] Kasey Williamson, DO [address] [address] 11/02/2024 10:20 AM CDT [facility] [place] [facility] [place] [address] Kasey Williamson, DO [address] [address] documented as of this encounter Visit Diagnoses [...] documented as of this encounter Care Teams Hospital Chief Executive Officer Relationship Specialty Start Date End Date Vaughn Bradshaw MD PCP - General Family Medicine 05/18/18 08/26/23 Kasey Williamson DO [facility] [address] [place] [address] PCP - General Family Medicine 09/14/23 Claudia Horn APRN [address] [place] [address] Advanced Practice Nurse 08/16/18 Vicenta Raymond DO ONE PROFESSIONAL [facility] [address] [place] [address] Consulting Physician Obstetrics & Gynecology 09/25/21 Gus Chowdary MD #[address] [facility] [address] [place] [address] Consulting Physician Colon and Rectal Surgery 07/23/22 Virginie Reyes, RN [place] Nurse Electrologist 09/14/23 09/14/23 Virginie Reyes, RN [place] Nurse Electrologist 11/19/23 11/29/23 Virginie Reyes, RN [place] Nurse Electrologist 12/07/23 05/15/24 Kelley Lopez APRN, PIPE STRIPPER #[address] [facility], [address] [place] [address] Nurse Practitioner Advanced Practice Nurse 12/09/23 02/22/24 documented as of this encounter
--- OUTSIDE RECORDS SUMMARY | 2024-10-01 18:27 | XMS_ITS | Encounter Summary ---
Author Organization [facility] Address [address] [place] [address] Phone Care Team Providers Care Laborer Drying Department Name Role Phone Vaughn Bradshaw MD Primary Care Provider Claudia Horn SQL ETL DEVELOPER Unavailable Vicenta Raymond DO Unavailable [phone] Gus Chowdary MD Unavailable Kasey Williamson DO Primary Care Provider [phone] Virginie Reyes RN Unavailable Unavailable Virginie Reyes RN Unavailable Unavailable Virginie Reyes RN Unavailable Unavailable Kelley Lopez SQL ETL DEVELOPER, SERVICE INSPECTOR Unavailable [phone] Reason for Visit * Reason Comments Medication Refill Encounter Details Date Type Department Care Team (Late st Contact Info) Description 09/12/2021 Refill [facility] #2 [place] [address] Vaughn Bradshaw MD #1 [place] [address] Medication Refill Social History Tobacco Use Types [...] Alfonso 04/21/21 Telemedicine Monae Jorgensen APRN, FIGUEROA [facility] [place] 02/24/21 Office Visit Vaughn Bradshaw MD [facility] 01/20/21 Office Visit Vaughn Bradshaw MD [facility] 12/09/20 Office Visit Vaughn Bradshaw MD [facility] 11/28/20 Telemedicine Vaughn Bradshaw MD [facility] 10/03/20 Office Visit Vaughn Bradshaw MD [facility] Kaden Showing recent visits within past 730 [...] Description 10/19/2024 10:00 AM CDT Office Visit [facility] #2 [place] [address] Kasey Williamson, DO 2 [facility] [address] [place] [address] 11/02/2024 10:20 AM CDT Office Visit [facility] #2 [place] [address] Kasey Williamson, DO 2 [facility] [address] [place] [address] documented as of this encounter Visit Diagnoses [...] documented as of this encounter Care Teams Laborer Drying Department Relationship Specialty Start Date End Date Vaughn Bradshaw MD PCP - General Family Medicine 05/18/18 08/26/23 Kasey Williamson DO 2 [facility] [address] [place] [address] PCP - General Family Medicine 09/14/23 Claudia Horn, FRANCES [address] [place] [address] Advanced Practice Nurse 08/16/18 Vicenta Raymond DO ONE PROFESSIONAL [facility] [address] [place] [address] Consulting Physician Obstetrics & Gynecology 09/25/21 Gus Chowdary MD #2 [facility] [address] [place] [address] Consulting Physician Colon and Rectal Surgery 07/23/22 Virginie Reyes, RN [place] Nurse Chargeback Analyst 09/14/23 09/14/23 Virginie Reyes, RN [place] Nurse Chargeback Analyst 11/19/23 11/29/23 Virginie Reyes, RN [place] Nurse Chargeback Analyst 12/07/23 05/15/24 Kelley Lopez, SQL ETL DEVELOPER, SERVICE INSPECTOR #2 [facility], [facility] [address] [place] [address] Nurse Practitioner Advanced Practice Nurse 12/09/23 02/22/24 documented as of this encounter
--- OUTSIDE RECORDS SUMMARY | 2024-10-01 18:27 | XMS_ITS | Encounter Summary ---
Author Organization [facility] Address [address] [place] [address] Phone Care Team Providers Care Electrical Repairer Name Role Phone Vaughn Bradshaw MD Primary Care Provider [phone] Claudia Horn WOOD MILL SUPERVISOR Unavailable [phone] Vicenta Raymond DO Unavailable [phone] Gus Chowdary MD Unavailable Kasey Williamson DO Primary Care Provider [phone] Virginie Reyes RN Unavailable Unavailable Virginie Reyes RN Unavailable Unavailable Virgiine Reyes RN Unavailable Unavailable Kelley Lopez WOOD MILL SUPERVISOR, CARBON SEQUESTRATION PLANT OPERATOR Unavailable [phone] Reason for Visit * Reason Comments Medication Refill Encounter Details Date Type Department Care Team (Late st Contact Info) Description 03/27/2022 Refill [facility] #2 [place] [address] Vaughn Bradshaw MD #1 [place] [address] Medication Refill Social History Tobacco Use Types [...] Telemedicine Monae Jorgensen APRN, FIGUEROA [facility] Showing recent visits within past 365 days and meeting all other requirements Future Appointments Date Type Provider Dept 06/04/22 Appointment Vaughn Bradshaw MD [facility] Showing future appointments within next 90 days and meeting all other requirements TERSINKER BALANCE SCREW HOLE documented in this encounter Plan of Treatment Upcoming Encounters Date Type Department Care Team (Late st Contact Info) Description 10/19/2024 10:00 AM CDT Office Visit [facility] #2 [place] [address] Kasey Williamson, 2 [facility] [address] [place] [address] 11/02/2024 10:20 AM CDT Office Visit [facility] #2 [place] [address] Kasey Williamson, 2 [facility] [address] [place] [address] documented as of this encounter Visit Diagnoses [...] documented as of this encounter Care Teams Electrical Repairer Relationship Specialty Start Date End Date Vaughn Bradshaw MD PCP - General Family Medicine 05/18/18 08/26/23 Kasey Williamson DO 2 [facility] [address] [place] [address] PCP - General Family Medicine 09/14/23 Claudia Horn APRN [address] [place] [address] Advanced Practice Nurse 08/16/18 Vicenta Raymond DO [address] [place] [address] [place] [address] Consulting Physician Obstetrics & Gynecology 09/25/21 Gus Chowdary MD #2 [facility] [address] [place] [address] Consulting Physician Colon and Rectal Surgery 07/23/22 Virginie Reyes, RN [place] Nurse Ems Director 09/14/23 09/14/23 Virginie Reyes, RN [place] Nurse Ems Director 11/19/23 11/29/23 Virginie Reyes, RN [place] Nurse Ems Director 12/07/23 05/15/24 Kelley Lopez, WOOD MILL SUPERVISOR, CARBON SEQUESTRATION PLANT OPERATOR #2 [facility] [address] [place] [address] Nurse Practitioner Advanced Practice Nurse 12/09/23 02/22/24 documented as of this encounter
--- OUTSIDE RECORDS SUMMARY | 2024-10-01 18:27 | XMS_ITS | Encounter Summary ---
Author Organization [facility] Address [address] [place] [address] Phone Care Team Providers Care Corn Detasseler Name Role Phone Vaughn Bradshaw MD Primary Care Provider [phone] Claudia Horn SUPERVISOR FABRICATION DEPARTMENT Unavailable [phone] Vicenta Raymond DO Unavailable [phone] Gus Chowdary MD Unavailable Kasey Williamson DO Primary Care Provider Virginie Reyes RN Unavailable Unavailable Virginie Reyes RN Unavailable Unavailable Virginie Reyes RN Unavailable Unavailable Kelley Lopez SUPERVISOR FABRICATION DEPARTMENT, COO Unavailable [phone] Reason for Visit * Reason Comments Medication Refill Encounter Details Date Type Department Care Team (Late st Contact Info) Description 09/21/2021 Refill [facility] #2 [place] [address] Vaughn Bradshaw MD #1 [place] [address] Medication Refill Social History Tobacco Use Types [...] Description 10/19/2024 10:00 AM CDT Office Visit [facility] #2 [place] [address] Kasey Williamson, DO [address] [address] 11/02/2024 10:20 AM CDT Office Visit [facility] #2 [place] [address] Kasey Williamson, DO [address] [address] documented as of this encounter Visit Diagnoses [...] documented as of this encounter Care Teams Corn Detasseler Relationship Specialty Start Date End Date Vaughn Bradshaw MD PCP - General Family Medicine 05/18/18 08/26/23 Kasey Williamson DO 2 [facility] [address] [place] [address] PCP - General Family Medicine 09/14/23 Claudia Horn APRN [address] [place] [address] Advanced Practice Nurse 08/16/18 Vicenta Raymond DO ONE PROFESSIONAL [facility] [address] [place] [address] Consulting Physician Obstetrics & Gynecology 09/25/21 Gus Chowdary MD #2 [facility] [address] [place] [address] Consulting Physician Colon and Rectal Surgery 07/23/22 Virginie Reyes, FAYE [place] Nurse House Decorator 09/14/23 09/14/23 Virginie Reyes, RN [place] Nurse House Decorator 11/19/23 11/29/23 Virginie Reyes, RN [place] Nurse House Decorator 12/07/23 05/15/24 Kelley Lopez APRN, COO #2 [facility] [address] [place] [address] Nurse Practitioner Advanced Practice Nurse 12/09/23 02/22/24 documented as of this encounter
--- OUTSIDE RECORDS SUMMARY | 2024-10-01 18:27 | XMS_ITS | Encounter Summary ---
Author Organization [facility] Address [address] [place] [address] Phone Care Team Providers Care Rough And Trueing Machine Operator Name Role Phone Vaughn Bradshaw MD Primary Care Provider [phone] Claudia Horn CATCH BASIN CLEANER Unavailable Vicenta Raymond DO Unavailable [phone] Gus Chowdary MD Unavailable Kasey Williamson DO Primary Care Provider [phone] Virginie Reyes RN Unavailable Unavailable Virginie Reyes RN Unavailable Unavailable Virginie Reyes RN Unavailable Unavailable Kelley Lopez CATCH BASIN CLEANER, CHILDCARE AIDE Unavailable [phone] Reason for Visit * Reason Comments Medication Refill Encounter Details Date Type Department Care Team (Late st Contact Info) Description 01/13/2022 Refill [facility] #2 [place] [address] Vaughn Bradshaw MD #1 [place] [address] Medication Refill Social History Tobacco Use Types [...] [place] 04/21/21 Telemedicine Monae Jorgensen APRN, CNP [facility] 02/24/21 Office Visit aVughn Bradshaw MD [facility] 01/20/21 Office Visit Vaughn Bradshaw MD [facility] [place] Showing recent visits within past 365 days and meeting all other requirements Future Appointments Date Type Provider Dept 01/26/22 Appointment Vaughn Bradshaw MD [facility] [place] Showing future appointments within next 90 days [...] [place] 01/20/21 Office Visit Vaughn Bradshaw MD [facility] Showing recent visits within past 365 days and meeting all other requirements Future Appointments Date Type Provider Dept 01/26/22 Appointment Vaughn Bradshaw MD [facility] Showing future appointments within next 90 days and meeting all other requirements documented in this encounter Plan of Treatment Upcoming Encounters Date Type Department Care Team (Late st Contact Info) Description 10/19/2024 10:00 AM CDT Office Visit [facility] [place] #2 [place] [address] Kasey Williamson, DO 2 [facility]. [address] [place] [address] 11/02/2024 10:20 AM CDT Office Visit [facility] [place] #[address] [place] [address] Kasey Williamson DO 2 [facility] [place] [address] documented as of this encounter Visit Diagnoses [...] documented as of this encounter Care Teams Rough And Trueing Machine Operator Relationship Specialty Start Date End Date Vaughn Bradshaw MD PCP - General Family Medicine 05/18/18 08/26/23 Kasey Williamson DO [address] [facility] [address] [address] PCP - General Family Medicine 09/14/23 Claudia Horn APRN [address] [place] [address] Advanced Practice Nurse 08/16/18 Vicenta Raymond DO [address] [place] [address] Consulting Physician Obstetrics & Gynecology 09/25/21 Gus Chowdary MD #2 [facility] [address] [place] [address] Consulting Physician Colon and Rectal Surgery 07/23/22 Virginie Reyes, RN [place] Nurse Electrical Laboratory Technician 09/14/23 09/14/23 Virginie Reyes, RN [place] Nurse Electrical Laboratory Technician 11/19/23 11/29/23 Virginie Reyes, RN [place] Nurse Electrical Laboratory Technician 12/07/23 05/15/24 Kelley Lopez, CATCH BASIN CLEANER, CHILDCARE AIDE #[address] [facility], [address] [place] [address] Nurse Practitioner Advanced Practice Nurse 12/09/23 02/22/24 documented as of this encounter
--- OUTSIDE RECORDS SUMMARY | 2024-10-01 18:27 | XMS_ITS | Encounter Summary ---
Author Organization [facility] Address [address] [place] [address] Phone Care Team Providers Care Pattern Hand Name Role Phone Vaughn Bradshaw MD Primary Care Provider [phone] Claudia Horn BEAD INSPECTOR Unavailable [phone] Vicenta Raymond DO Unavailable [phone] Gus Chowdary MD Unavailable Kasey Williamson DO Primary Care Provider [phone] Virginie Reyes RN Unavailable Unavailable Virginie Reyes RN Unavailable Unavailable Virginie Reyes RN Unavailable Unavailable Kelley Lopez BEAD INSPECTOR, WINE STEWARD/STEWARDESS Unavailable [phone] Reason for Visit * Reason Comments Medication Refill Encounter Details Date Type Department Care Team (Late st Contact Info) Description 10/01/2021 Refill [facility] #2 [place] [address] Vaughn Bradshaw MD #1 [place] [address] Medication Refill Social History Tobacco Use Types [...] Description 10/19/2024 10:00 AM CDT Office Visit [facility] #2 [place] [address] Kasey Williamson, DO [address] [address] 11/02/2024 10:20 AM CDT Office Visit [facility] #2 [place] [address] Kasey Williamson, DO [address] [address] documented as of this encounter Visit Diagnoses [...] documented as of this encounter Care Teams Pattern Hand Relationship Specialty Start Date End Date Vaughn Bradshaw MD PCP - General Family Medicine 05/18/18 08/26/23 Kasey Williamson DO 2 [facility] [address] [place] [address] PCP - General Family Medicine 09/14/23 Claudia Horn APRN [address] [place] [address] Advanced Practice Nurse 08/16/18 Vicenta Raymond DO ONE PROFESSIONAL [facility] [address] [place] [address] Consulting Physician Obstetrics & Gynecology 09/25/21 Gus Chowdary MD #2 [facility] [address] [place] [address] Consulting Physician Colon and Rectal Surgery 07/23/22 Virginie Reyes, FAYE [place] Nurse Mold Technician 09/14/23 09/14/23 Virginie Reyes, RN [place] Nurse Mold Technician 11/19/23 11/29/23 Virginie Reyes, RN [place] Nurse Mold Technician 12/07/23 05/15/24 Kelley Lopez APRN, WINE STEWARD/STEWARDESS #2 [facility] [address] [place] [address] Nurse Practitioner Advanced Practice Nurse 12/09/23 02/22/24 documented as of this encounter
--- OUTSIDE RECORDS SUMMARY | 2024-10-01 18:27 | XMS_ITS | Encounter Summary ---
Author Organization [facility] Address [address] [place] [address] Phone Care Team Providers Care Crossbow Maker Name Role Phone Vaughn Bradshaw MD Primary Care Provider [phone] Claudia Horn AUTOMOBILE MECHANIC HELPER Unavailable [phone] Vicenta Raymond DO Unavailable [phone] Gus Chowdary MD Unavailable Kasey Williamson DO Primary Care Provider [phone] Virginie Reyes RN Unavailable Unavailable Virginie Reyes RN Unavailable Unavailable Virginie Reyes RN Unavailable Unavailable Kelley Lopez AUTOMOBILE MECHANIC HELPER, VP HUMAN RESOURCES Unavailable [phone] Reason for Visit * Reason Comments Medication Refill Encounter Details Date Type Department Care Team (Late st Contact Info) Description 03/19/2022 Refill [facility] #2 [place] [address] Vaughn Bradshaw MD #1 [place] [address] Medication Refill Social History Tobacco Use Types [...] Prerna Mann RN - 03/19/2022 8:51 AM INFORMATION SYSTEMS TECHNICIAN Medication discontinued-dose adjustment. RMATION SYSTEMS TECHNICIAN documented in this encounter Plan of Treatment Upcoming Encounters Date Type Department Care Team (Late st Contact Info) Description 10/19/2024 10:00 AM CDT Office Visit [facility] #2 [place] [address] Kasey Williamson, DO 2 [facility] [address] [place] [address] 11/02/2024 10:20 AM CDT Office Visit [facility] #2 [place] [address] Kasey Williamson, DO 2 [facility] [address] [place] [address] documented as of this encounter Visit Diagnoses Diagnosis Anxiety and depression Dysthymic disorder documented in this encounter Additional Health Concerns Infection Onset Date Last Indicated Resolved Time COVID - 19 11/15/2023 11/15/2023 11/15/2023 11:4 7 PM CDT VRE 08/18/2024 08/18/2024 Assessment Noted Time PHQ-9 Depression Total Score: 0 11/05/19 22 9:00 AM CDT documented as of this encounter Care Teams Crossbow Maker Relationship Specialty Start Date End Date Vaughn Bradshaw MD PCP - General Family Medicine 05/18/18 08/26/23 Kasey Williamson DO 2 [facility]. [address] [place] [address] PCP - General Family Medicine 09/14/23 Claudia Horn, AUTOMOBILE MECHANIC HELPER [address] [place] [address] Advanced Practice Nurse 08/16/18 Vicenta Raymond DO ONE PROFESSIONAL [facility] [address] [place] [address] Consulting Physician Obstetrics & Gynecology 09/25/21 Gus Chowdary MD #2 [facility] [address] [place] [address] Consulting Physician Colon and Rectal Surgery 07/23/22 Virginie Reyes, RN [place] Nurse Mate First 09/14/23 09/14/23 Virginie Reyes, RN [place] Nurse Mate First 11/19/23 11/29/23 Virginie Reyes, RN [place] Nurse Mate First 12/07/23 05/15/24 Kelley Lopez, AUTOMOBILE MECHANIC HELPER, VP HUMAN RESOURCES #2 [facility], [email or web address] [address] [place] [address] Nurse Practitioner Advanced Practice Nurse 12/09/23 02/22/24 documented as of this encounter
--- OUTSIDE RECORDS SUMMARY | 2024-10-01 18:27 | XMS_ITS | Encounter Summary ---
Author Organization [facility] Address [address] [place] [address] Phone Care Team Providers Care Editing Intern Name Role Phone Vaughn Bradshaw MD Primary Care Provider [phone] Claudia Horn ROLL PLUGGER Unavailable [phone] Vicenta Raymond DO Unavailable [phone] Gus Chowdary MD Unavailable Kasey Williamson DO Primary Care Provider [phone] Virginie Reyes RN Unavailable Unavailable Virginie Reyes RN Unavailable Unavailable Virginie Reyes RN Unavailable Unavailable Kelley Lopez ROLL PLUGGER, PURLER Unavailable [phone] Reason for Visit * Reason Comments Medication Refill Encounter Details Date Type Department Care Team (Late st Contact Info) Description 07/04/2022 Refill [facility] #2 [place] [address] Vaughn Bradshaw MD #1 [place] [address] Medication Refill Social History Tobacco Use Types [...] [facility] #2 [place] [address] Kasey Williamson, DO [address] [address] 11/02/2024 10:20 AM CDT Office Visit [facility] #2 [place] [address] Kasey Williamson, DO 2 [facility] [address] [place] [address] documented as of this encounter Visit Diagnoses Diagnosis Anxiety and depression Dysthymic disorder documented in this encounter Additional Health Concerns Infection Onset Date Last Indicated Resolved Time COVID - 19 11/15/2023 11/15/2023 11/15/2023 11:4 7 PM CDT VRE 08/18/2024 08/18/2024 Assessment Noted Time PHQ-9 Depression Total Score: 0 11/05/19 22 9:00 AM CDT documented as of this encounter Care Teams Editing Intern Relationship Specialty Start Date End Date Vaughn Bradshaw MD PCP - General Family Medicine 05/18/18 08/26/23 Kasey Williamson DO 2 [facility] [address] [place] [address] PCP - General Family Medicine 09/14/23 Claudia Horn APRN [address] [place] [address] Advanced Practice Nurse 08/16/18 Vicenta Raymond DO ONE PROFESSIONAL [facility] [address] [place] [address] Consulting Physician Obstetrics & Gynecology 09/25/21 Gus Chowdary MD #2 [facility] [address] [place] [address] Consulting Physician Colon and Rectal Surgery 07/23/22 Virginie Reyes, RN [place] Nurse Global Vp Creative + Content Marketing 09/14/23 09/14/23 Virginie Reyes RN [place] Nurse Global Vp Creative + Content Marketing 11/19/23 11/29/23 Virginie Reyes, RN [place] Nurse Global Vp Creative + Content Marketing 12/07/23 05/15/24 Kelley Lopez, ROLL PLUGGER, PURLER #2 [facility], [address] [place] [address] Nurse Practitioner Advanced Practice Nurse 12/09/23 02/22/24 documented as of this encounter
--- OUTSIDE RECORDS SUMMARY | 2024-10-01 18:27 | XMS_ITS | Encounter Summary ---
Author Organization [facility] Address [address] [place] [address] Phone Care Team Providers Care Cath Lab Nurse Name Role Phone Vaughn Bradshaw MD Primary Care Provider [phone] Claudia Horn BULK COOLER INSTALLER Unavailable Vicenta Raymond DO Unavailable [phone] Gus Chowdary MD Unavailable Kasey Williamson DO Primary Care Provider [phone] Virginie Reyes RN Unavailable Unavailable Virginie Reyes RN Unavailable Unavailable Virginie Reyes RN Unavailable Unavailable Kelley Lopez BULK COOLER INSTALLER, EMPLOYEE DEVELOPMENT SPECIALIST Unavailable [phone] Reason for Visit * Reason Comments Medication Refill Encounter Details Date Type Department Care Team (Late st Contact Info) Description 03/09/2022 Refill [facility] #2 [place] [address] Vaughn Bradshaw MD #1 [place] [address] Medication Refill Social History Tobacco Use Types [...] Telephone Encounter - Prerna Mann RN - 03/09/2022 9:24 AM REGISTERED RADIOGRAPHER Medication failed the protocol, provider to review and approve the medication order if appropriate. Requested Prescriptions Pending Prescriptions Disp Refills ergocalciferol (VITAMIN D) 77173 UNIT Capsule [Pharmacy Med Name: VITAMIN D2 [...] 90 days and meeting all other requirements STERED RADIOGRAPHER documented in this encounter Plan of Treatment Upcoming Encounters Date Type Department Care Team (Late st Contact Info) Description 10/19/2024 10:00 AM CDT Office Visit [facility] #2 [facility] [address] Kasey Williamson, DO 2 [facility] [address] [place] [address] 11/02/2024 10:20 AM CDT Office Visit [facility] #2 [facility] [address] Kasey Williamson, [address] [address] documented as of this encounter Visit Diagnoses Diagnosis Vitamin D deficiency Unspecified vitamin D deficiency documented in this encounter Additional Health Concerns Infection Onset Date Last Indicated Resolved Time COVID - 19 11/15/2023 11/15/2023 11/15/2023 11:4 7 PM CDT VRE 08/18/2024 08/18/2024 Assessment Noted Time PHQ-9 Depression Total Score: 0 11/05/19 22 9:00 AM CDT documented as of this encounter Care Teams Cath Lab Nurse Relationship Specialty Start Date End Date Vaughn Bradshaw MD PCP - General Family Medicine 05/18/18 08/26/23 Kasey Williamson DO 2 [facility] [facility] [address] [place] [address] PCP - General Family Medicine 09/14/23 Claudia Horn APRN [address] [place] [address] Advanced Practice Nurse 08/16/18 Vicenta Raymond DO [address] [place] [address] [place] [address] Consulting Physician Obstetrics & Gynecology 09/25/21 Gus Chowdary MD #[address] [facility] [address] [address] Consulting Physician Colon and Rectal Surgery 07/23/22 Virginie Reyes, RN [place] Nurse Salesperson Burial Plots 09/14/23 09/14/23 Virginie Reyes, RN [place] Nurse Salesperson Burial Plots 11/19/23 11/29/23 Virginie Reyes, RN [place] Nurse Salesperson Burial Plots 12/07/23 05/15/24 Kelley Lopez, BULK COOLER INSTALLER, EMPLOYEE DEVELOPMENT SPECIALIST #2 [facility] [address] [place] [address] Nurse Practitioner Advanced Practice Nurse 12/09/23 02/22/24 documented as of this encounter
--- OUTSIDE RECORDS SUMMARY | 2024-10-01 18:27 | XMS_ITS | Encounter Summary ---
Author Organization [facility] Address [address] [place] [address] Phone Care Team Providers Care System Development Engineer Name Role Phone Vaughn Bradshaw MD Primary Care Provider [phone] Claudia Horn SCRAP COLLECTOR Unavailable Vicenta Raymond DO Unavailable [phone] Gus Chowdary MD Unavailable Kasey Williamson DO Primary Care Provider [phone] Virginie Reyes RN Unavailable Unavailable Virginie Reyes RN Unavailable Unavailable Virginie Reyes RN Unavailable Unavailable Kelley Lopez SCRAP COLLECTOR, SCOUTS Unavailable [phone] Reason for Visit * Reason Comments Medication Refill Encounter Details Date Type Department Care Team (Late st Contact Info) Description 09/12/2021 Refill [facility] #2 [place] [address] Monae Jorgensen APRN, SCOUTS #[address] [address] Medication Refill Social History Tobacco [...] Pending Prescriptions Disp Refills ergocalciferol (VITAMIN D) 98996 UNIT Capsule [Pharmacy Med Name: VITAMIN D2 [...] Office Visit Vaughn Bradshaw MD [facility] 11/28/20 Telemedicine Vaughn Bradshaw MD [facility] 10/03/20 Office Visit Vaughn Bradshaw MD [facility] Kaden Showing recent visits within past 365 days and meeting all other requirements Future Appointments No visits were found meeting these conditions. Showing future appointments within next 90 days and meeting all other requirements documented in this encounter Plan of Treatment Upcoming Encounters Date Type Department Care Team (Late st Contact Info) Description 10/19/2024 10:00 AM CDT Office Visit [facility] #2 [place] [address] Kasey Williamson, DO 2 [facility] [address] [place] [address] 11/02/2024 10:20 AM CDT Office Visit [facility] #2 [place] [address] Kasey Williamson, DO 2 [facility] [address] [place] [address] documented as of this encounter Visit Diagnoses [...] documented as of this encounter Care Teams System Development Engineer Relationship Specialty Start Date End Date Vaughn Bradshaw MD PCP - General Family Medicine 05/18/18 08/26/23 Kasey Williamson DO 2 [facility] [place] [address] PCP - General Family Medicine 09/14/23 Claudia Horn APRN [address] [place] [address] Advanced Practice Nurse 08/16/18 Vicenta Raymond DO [facility] [address] [place] [address] Consulting Physician Obstetrics & Gynecology 09/25/21 Gus Chowdary MD #2 [facility] [address] [place] [address] Consulting Physician Colon and Rectal Surgery 07/23/22 Virginie Reyes, RN [place] Nurse First Assistant 09/14/23 09/14/23 Virginie Reyes, RN [place] Nurse First Assistant 11/19/23 11/29/23 Virginie Reyes, RN [place] Nurse First Assistant 12/07/23 05/15/24 Kelley Lopez APRN, SCOUTS #2 [facility] [address] [place] [address] Nurse Practitioner Advanced Practice Nurse 12/09/23 02/22/24 documented as of this encounter
--- OUTSIDE RECORDS SUMMARY | 2024-10-01 18:27 | XMS_ITS | Encounter Summary ---
Author Organization [facility] Address [address] [place] [address] Care Team Providers Care Head Chef Name Role Phone Kasey Williamson DO Primary Care Provider [phone] Encounter Details Date Type Department Care Team (Late st Contact Info) Description 08/06/2024 Results Follow-Up [facility] [address] [place] [address] Jorge Tran MD [address] [place] [address] Social History Tobacco Use Types Packs/Day Years Used Date Smoking Tobacco: Never Passive Smoke Exposure: Never Smokeless Tobacco: Never Alcohol Use Standard Drinks/Week Comments Never 0 (1 standard drink = 0.6 oz pur e alcohol) AUDIT-C Answer Date Recorded Q1: How often do you have a drink containing alcohol? Never 08/01/2024 Q2: How many drinks containi ng alcohol do you have on a typical day when you are drinking? Patient does not drink Q3: How often do you have si x or more drinks on one occasion? Never 08/01/2024 Overall Financial Resource Strain (CARDIA) Answe r Date Recorded How hard is it for you to pa y for the very basics like food, housing, medical care, and heating? Not hard at all 08/01/2024 PHQ-2 Answer Date Recorded Patient Health Questionnaire-2 Score 2 01/11/2023 [facility] Occupat ional Health - Occupational Stress Questionnaire Answer Date Recorded Do you feel stress - tense, restless, nervous, or anxious, or unable to sleep at night because your mind is troubled all the time - these days? Not at all 08/01/2024 Hunger Vital Sign Answer Date Recorded Within the past 12 months, y ou worried that your food would run out before you got the money to buy more. Never true 08/02/19 25 Within the past 12 months, t he food you bought just didn't last and you didn't have money to get more. Never true 08/01/2024 PRAPARE - Transportation Answer Date Re corded In the past 12 months, has l ack of transportation kept you from medical appointments or from getting medications? No 07/20 In the past 12 months, has l ack of transportation kept you from meetings, work, or from getting things needed for daily living? No 08/01/2024 Housing Stability Vital Sign Answer Jose e Recorded In the last 12 months, was t here a time when you were not able to pay the mortgage or rent on time? No 08/01/2024 In the past 12 months, how m any times have you moved where you were living? 0 08/01/2024 At any time in the past 12 m [facility], were you homeless or living in a long term (including now)? No 08/01/2024 Comments No Sex and Gender Information Value Date Recorded Sex Assigned at Not on file Legal Sex Female 12:53 PM INFRASTRUCTURE SOLUTIONS ARCHITECT Gender Identity Not on file Sexual Orientation Not on file documented as of this encounter Functional Status * Is person deaf or have serious hearing difficulty? Answer Date of Assessment Author No 08/01/2024 7:41 AM Claudette Walton RN * Is person blind or have serious difficulty seeing? Answer Date of Assessment Author No 08/01/2024 7:41 AM Claudette Walton RN * Does person have serious difficulty walking/climbing stairs? Answer Date of Assessment Author No 08/01/2024 7:41 AM Claudette Walton RN * Does person have difficulty dressing/bathing? Answer Date of Assessment Author No 08/01/2024 7:41 AM CDT Claudette Davenport RN * Does person have difficulty doing errands alone? Answer Date of Assessment Author No 08/01/2024 7:41 AM CDT Claudette Davenport RN documented as of this encounter Mental Status * Does person have difficulty concentrating/remembering/making decisions? Answer Entry Date Author No 08/01/2024 7:41 AM CDT Claudette Davenport RN documented in this encounter Plan of Treatment Upcoming Encounters Date Type Department Care Team (Late st Contact Info) Description 10/05/2024 4:00 PM CDT Office Visit [facility] [address] [place] [phone] Nalini Ramírez, PhD [address] [place] [address] 11/28/2024 3:30 PM CDT Office Visit [facility] [address] [place] [address] Jorge Tran MD [address] [place] [phone] 02/01/2025 12:30 PM INFRASTRUCTURE SOLUTIONS ARCHITECT Appointment [facility] [address] [place] [address] Jorge Tran MD [address] [place] [phone] 02/01/2025 2:30 PM INFRASTRUCTURE SOLUTIONS ARCHITECT Office Visit [facility] [address] [place] [phone] Jorge Tran MD [address] [place] [phone] 02/12/2025 11:00 AM INFRASTRUCTURE SOLUTIONS ARCHITECT Office Visit [facility] - Endocrinology [address] [place] [phone] Phoebe Joseph MD [address] [place] [address] [address] [place] [address] documented as of this encounter Goals Goal Patient Goal Type Associated Problems Recent Progress Patient-Stated? Author Medication Management General On track( 8:34 AM CDT) No Fidelia Lainez, RN Note: Expected end date: 1 year Interventions: Take all medications as prescribed Safety General On track( 8:34 AM CDT) No Melany Kuhn, RN Note: Expected end date: ongoing Interventions: Your nurse will assess your risk for falls/injury each visit Make and keep follow-up appointments General On track( 8:34 AM CDT) No Melany Kuhn, FAYE documented as of this encounter Visit Diagnoses Not on filedocumented in this encounter Care Teams Head Chef Relationship Specialty Start Date End Date Kasey Williamson DO [address] [place] [phone] PCP - General Family Medicine 12/27/23 documented as of this encounter
--- OUTSIDE RECORDS SUMMARY | 2024-10-01 18:27 | XMS_ITS | Encounter Summary ---
Author Organization [facility] Address [address] [place] [address] Phone Care Team Providers Care Mat Cleaning Machine Operator Name Role Phone Vaughn Bradshaw MD Primary Care Provider [phone] Claudia Horn BLEACHING MACHINE OPERATOR Unavailable Vicenta Raymond DO Unavailable [phone] Gus Chowdary MD Unavailable Kasey Williamson DO Primary Care Provider [phone] Virginie Reyes RN Unavailable Unavailable Virginie Reyes RN Unavailable Unavailable Virginie Reyes RN Unavailable Unavailable Kelley Lopez BLEACHING MACHINE OPERATOR, CLIENT EVALUATOR Unavailable [phone] Reason for Visit * Reason Comments Medication Refill Encounter Details Date Type Department Care Team (Late st Contact Info) Description 12/26/2021 [facility]ill [facility]2 [place] [address] Vaughn Bradshaw MD #1 [place] [address] Medication Refill Social History Tobacco Use Types [...] [Pharmacy Med Name: B-D PEN NDL SHRT 08VC5LY(08/04) PARVEZ]200 Pen Needle 3 Sig: USE DIRECTED [...] Description 10/19/2024 10:00 AM CDT Office Visit [facility] #2 [place] [address] Kasey Williamson, DO 2 [facility] [address] [place] [address] 11/02/2024 10:20 AM CDT Office Visit [facility] #[address] [facility] [address] Kasey Williamson DO 2 [facility] [address] [place] [address] documented as of this encounter Visit Diagnoses [...] documented as of this encounter Care Teams Mat Cleaning Machine Operator Relationship Specialty Start Date End Date Vaughn Bradshaw MD PCP - General Family Medicine 05/18/18 08/26/23 Kasey Williamson DO 2 [facility] [address] [place] [address] PCP - General Family Medicine 09/14/23 Claudia Horn APRN [address] [place] [address] Advanced Practice Nurse 08/16/18 Vicenta Raymond DO ONE PROFESSIONAL [facility] [address] [place] [address] Consulting Physician Obstetrics & Gynecology 09/25/21 Gus Chowdary MD #2 [facility] [address] [place] [address] Consulting Physician Colon and Rectal Surgery 07/23/22 Virginie Reyes, RN [place] Nurse Computer Systems Technology Instructor 09/14/23 09/14/23 Virginie Reyes, RN [place] Nurse Computer Systems Technology Instructor 11/19/23 11/29/23 Virginie Reyes, RN [place] Nurse Computer Systems Technology Instructor 12/07/23 05/15/24 Kelley Lopez, BLEACHING MACHINE OPERATOR, CLIENT EVALUATOR #2 [facility] [address] [place] [address] Nurse Practitioner Advanced Practice Nurse 12/09/23 02/22/24 documented as of this encounter
--- OUTSIDE RECORDS SUMMARY | 2024-10-01 18:27 | XMS_ITS | Encounter Summary ---
Author Organization [facility] Address [address] [place] [address] Phone Care Team Providers Care Supervisor Counseling And Guidance Name Role Phone Vaughn Bradshaw MD Primary Care Provider [phone] Claudia Horn ENVIRONMENTAL RESEARCH PROJECT MANAGER Unavailable Vicenta Raymond DO Unavailable [phone] Gus Chowdary MD Unavailable Kasey Williamson DO Primary Care Provider [phone] Virginie Reyes RN Unavailable Unavailable Virginie Reyes RN Unavailable Unavailable Virginie Reyes RN Unavailable Unavailable Kelley Lopez ENVIRONMENTAL RESEARCH PROJECT MANAGER, COUNSELOR EDUCATION PROFESSOR Unavailable [phone] Reason for Visit * Reason Comments Medication Refill Encounter Details Date Type Department Care Team (Late st Contact Info) Description 08/28/2021 Refill [facility] #2 [place] [address] Vaughn Bradshaw MD #1 [place] [address] Medication Refill Social History Tobacco Use Types [...] [facility] 04/21/21 Telemedicine Monae Jorgensen APRN, CNP [facility] Showing recent visits within past [...] CDT Office Visit [facility] #2 [place] [address] Kasey Williamson, 2 [facility] [address] [place] [address] 11/02/2024 10:20 AM CDT Office Visit [facility] #2 [place] [address] Kasey Williamson, DO 2 [facility] [address] [place] [address] documented as of this encounter Visit Diagnoses [...] as of this encounter Care Teams Supervisor Counseling And Guidance Relationship Specialty Start Date End Date Vaughn Bradshaw MD PCP - General Family Medicine 05/18/18 08/26/23 Kasey Williamson, 2 [facility] [address] [place] [address] PCP - General Family Medicine 09/14/23 Claudia Horn, ENVIRONMENTAL RESEARCH PROJECT MANAGER [address] [place] [address] Advanced Practice Nurse 08/16/18 Vicenta Raymond DO [address] [facility] [address] [place] [address] Consulting Physician Obstetrics & Gynecology 09/25/21 Gus Chowdary MD #2 [facility] [address] [place] [address] Consulting Physician Colon and Rectal Surgery 07/23/22 Virginie Reyes, RN [place] Nurse Command And Control Specialist 09/14/23 09/14/23 Virginie Reyes, RN [place] Nurse Command And Control Specialist 11/19/23 11/29/23 Virginie Reyes, RN [place] Nurse Command And Control Specialist 12/07/23 05/15/24 Kelley Lopez, ENVIRONMENTAL RESEARCH PROJECT MANAGER, COUNSELOR EDUCATION PROFESSOR #2 [facility] [address] [place] [address] Nurse Practitioner Advanced Practice Nurse 12/09/23 02/22/24 documented as of this encounter
--- OUTSIDE RECORDS SUMMARY | 2024-10-01 18:27 | XMS_ITS | Encounter Summary ---
Author Organization [facility] Address [address] [place] [address] Care Team Providers Care Creeler Name Role Phone Terence Dela Cruz MD Primary Care Provider Unava ilTerence Reyes MD Primary Care Provider Unava ilTerence Reyes MD Primary Care Provider Unava ilable Terence Dela Cruz MD Primary Care Provider Unava ilable Terence Dela Cruz MD Primary Care Provider Unava ilable Encounter Details Date Type Department Care Team (Late st Contact Info) Description 03/10/[address] [facility] CON[facility] [address] [place] [address] , Generic MD Dary Social History Tobacco [...] on filedocumented in this encounter Care Teams Creeler Relationship Specialty Start Date End Date Terence Dela Cruz MD PCP - General 12/15/13 Terence Dela Cruz MD PCP - General 12/14/13 12/14/13 Terence Dela Cruz MD PCP - General 09/20/13 12/13/13 Terence Dela Cruz MD PCP - General 09/13/13 09/19/13 Terence Dela Cruz MD PCP - General 08/23/13 09/12/13 documented as of this encounter
--- OUTSIDE RECORDS SUMMARY | 2024-10-01 18:27 | XMS_ITS | Encounter Summary ---
Author Organization [facility] Address [address] [place] [address] Phone Care Team Providers Care Heel Sander Rubber Name Role Phone Vaughn Bradshaw MD Primary Care Provider [phone] Claudia Horn DATA ENTRY ASSOCIATE Unavailable Vicenta Raymond DO Unavailable [phone] Gus Chowdary MD Unavailable Kasey Williamson DO Primary Care Provider [phone] Virginie Reyes RN Unavailable Unavailable Virginie Reyes RN Unavailable Unavailable Virginie Reyes RN Unavailable Unavailable Kelley Lopez DATA ENTRY ASSOCIATE, ORDER ADMINISTRATOR Unavailable [phone] Reason for Visit * Reason Comments Medication Refill Encounter Details Date Type Department Care Team (Late st Contact Info) Description 07/07/2021 Refill [facility] #2 [place] [address] Vaughn Bradshaw MD #1 [place] [address] Medication Refill Social History Tobacco Use Types [...] Description 10/19/2024 10:00 AM CDT Office Visit [facility] #2 [place] [address] Kasey Williamson, DO [address] [address] 11/02/2024 10:20 AM CDT Office Visit [facility] #2 [place] [address] Kasey Williamson, DO [address] [address] documented as of this encounter Visit Diagnoses [...] documented as of this encounter Care Teams Heel Sander Rubber Relationship Specialty Start Date End Date Vaughn Bradshaw MD PCP - General Family Medicine 05/18/18 08/26/23 Kasey Williamson DO 2 [facility] [address] [place] [address] PCP - General Family Medicine 09/14/23 Claudia Horn APRN [address] [place] [address] Advanced Practice Nurse 08/16/18 Vicenta Raymond DO [facility]ESSIONAL [facility] [address] [place] [address] Consulting Physician Obstetrics & Gynecology 09/25/21 Gus Chowdary MD #2 [facility] [address] [place] [address] Consulting Physician Colon and Rectal Surgery 07/23/22 Virginie Reyes, FAYE [place] Nurse Sql Report Writer 09/14/23 09/14/23 Virginie Reyes, RN [place] Nurse Sql Report Writer 11/19/23 11/29/23 Virginie Reyes, RN [place] Nurse Sql Report Writer 12/07/23 05/15/24 Kelley Lopez APRN, ORDER ADMINISTRATOR #2 [facility] [address] [place] [address] Nurse Practitioner Advanced Practice Nurse 12/09/23 02/22/24 documented as of this encounter
--- OUTSIDE RECORDS SUMMARY | 2024-10-01 18:27 | XMS_ITS | Encounter Summary ---
Author Organization [facility] Address [address] [place] [address] Phone Care Team Providers Care Web Coordinator Name Role Phone Vaughn Bradshaw MD Primary Care Provider [phone] Claudia Horn READINESS PARAPROFESSIONAL Unavailable Vicenta Raymond DO Unavailable [phone] Gus Chowdary MD Unavailable Kasey Williamson DO Primary Care Provider [phone] Virginie Reyes RN Unavailable Unavailable Virginie Reyes RN Unavailable Unavailable Virginie Reyes RN Unavailable Unavailable Kelley Lopez READINESS PARAPROFESSIONAL, VOCATIONAL ED INSTRUCTOR Unavailable [phone] Reason for Visit * Reason Comments Medication Refill Encounter Details Date Type Department Care Team (Late st Contact Info) Description 04/02/2022 Refill [facility] #2 [place] [address] Vaughn Bradshaw MD #1 [place] [address] Medication Refill Social History Tobacco Use Types [...] Prerna Mann RN - 04/02/2022 9:38 AM REGULATORY AFFAIRS ASSOCIATE Medication failed the protocol, provider to review [...] Ref Range Status 01/15/2022 >60 >=60 Final LATORY AFFAIRS ASSOCIATE documented in this encounter Plan of Treatment Upcoming Encounters Date Type Department Care Team (Late st Contact Info) Description 10/19/2024 10:00 AM CDT Office Visit [facility] #2 [place] [address] Kasey Williamson, DO [address] [facility] [address] [place] [address] 11/02/2024 10:20 AM CDT Office Visit [facility] #2 [place] [address] Kasey Williamson, DO [address] [facility] [address] [place] [address] documented as of this encounter Visit Diagnoses [...] as of this encounter Care Teams Web Coordinator Relationship Specialty Start Date End Date Vaughn Bradshaw MD PCP - General Family Medicine 05/18/18 08/26/23 Kasey Williamson DO 2 [facility] [place] [address] PCP - General Family Medicine 09/14/23 Claudia Horn APRN [address] [place] [address] Advanced Practice Nurse 08/16/18 Vicenta Raymond DO ONE PROFESSIONAL [facility] [address] [place] [address] Consulting Physician Obstetrics & Gynecology 09/25/21 Gus Chowdary MD #2 [facility] [address] [place] [address] Consulting Physician Colon and Rectal Surgery 07/23/22 Virginie Reyes, RN [place] Nurse Manager Organizational 09/14/23 09/14/23 Virginie Reyes, RN [place] Nurse Manager Organizational 11/19/23 11/29/23 Virginie Reyes, RN [place] Nurse Manager Organizational 12/07/23 05/15/24 Kelley Lopez APRN, VOCATIONAL ED INSTRUCTOR #[address] [facility], [address] [place] [address] Nurse Practitioner Advanced Practice Nurse 12/09/23 02/22/24 documented as of this encounter
--- OUTSIDE RECORDS SUMMARY | 2024-10-01 18:27 | XMS_ITS | Encounter Summary ---
Author Organization [facility] Address [address] [place] [address] Phone Care Team Providers Care Edge Inker Heels Name Role Phone Vaughn Bradshaw MD Primary Care Provider [phone] Claudia Horn FRUIT CUTTER Unavailable [phone] Vicenta Raymond DO Unavailable [phone] Gus Chowdary MD Unavailable Kasey Williamson DO Primary Care Provider [phone] Virginie Reyes RN Unavailable Unavailable Virginie Reyes RN Unavailable Unavailable Virginie Reyes RN Unavailable Unavailable Kelley Lopez FRUIT CUTTER, APPRAISAL MANAGER Unavailable [phone] Reason for Visit * Reason Comments Medication Refill Encounter Details Date Type Department Care Team (Late st Contact Info) Description 10/20/2022 Refill [facility] #2 [place] [address] Vaughn Bradshaw MD #1 [place] [address] Medication Refill Social History Tobacco Use Types [...] Description 10/19/2024 10:00 AM CDT Office Visit [facility] - Family [facility] #2 [place] [address] Kasey Williamson, DO [address] [address] 11/02/2024 10:20 AM CDT Office Visit [facility] #[address] [place] [address] Kasey Williamson DO 2 [facility] [address] [place] [address] documented as of this encounter Visit Diagnoses Diagnosis Anxiety and depression Dysthymic disorder documented in this encounter Additional Health Concerns Infection Onset Date Last Indicated Resolved Time COVID - 19 11/15/2023 11/15/2023 11/15/2023 11:4 7 PM CDT VRE 08/18/2024 08/18/2024 Assessment Noted Time PHQ-9 Depression Total Score: 0 11/05/19 9:00 AM CDT documented as of this encounter Care Teams Edge Inker Heels Relationship Specialty Start Date End Date Vaughn Bradshaw MD PCP - General Family Medicine 05/18/18 08/26/23 Kasey Williamson DO 2 [facility] [address] [place] [address] PCP - General Family Medicine 09/14/23 Claudia Horn APRN [address] [place] [address] Advanced Practice Nurse 08/16/18 Vicenta Raymond DO ONE PROFESSIONAL [facility] [address] [place] [address] Consulting Physician Obstetrics & Gynecology 09/25/21 Gus Chowdary MD #[address] [address] Consulting Physician Colon and Rectal Surgery 07/23/22 Virginie Reeys, RN [place] Nurse Facility Attendant 09/14/23 09/14/23 Virginie Reyes, RN [place] Nurse Facility Attendant 11/19/23 11/29/23 Virginie Reyes, RN [place] Nurse Facility Attendant 12/07/23 05/15/24 Kelley Lopez, FRUIT CUTTER, APPRAISAL MANAGER #2 [facility], [address] [place] [address] Nurse Practitioner Advanced Practice Nurse 12/09/23 02/22/24 documented as of this encounter
--- OUTSIDE RECORDS SUMMARY | 2024-10-01 18:27 | XMS_ITS | Encounter Summary ---
Author Organization [facility] Address [address] [place] [address] Phone Care Team Providers Care Ground School Instructor Name Role Phone Vaughn Bradshaw MD Primary Care Provider [phone] Claudia Horn INDUSTRIAL TECHNOLOGY TEACHER Unavailable [phone] Vicenta Raymond DO Unavailable [phone] Gus Chowdary MD Unavailable Kasey Williamson DO Primary Care Provider [phone] Virginie Reyes RN Unavailable Unavailable Virginie Reyes RN Unavailable Unavailable Virginie Reyes RN Unavailable Unavailable Kelley Lopez INDUSTRIAL TECHNOLOGY TEACHER, ENVIRONMENTAL MONITORING TECHNICIAN Unavailable [phone] Reason for Visit * Reason Comments Medication Refill Encounter Details Date Type Department Care Team (Late st Contact Info) Description 07/22/2021 Refill [facility] #2 [place] [address] Vaughn Bradshaw MD #1 [place] [address] Medication Refill Social History Tobacco Use Types [...] Alfonso 04/21/21 Telemedicine Monae Jorgensen APRN, [place] [facility] [place] 02/24/21 Office Visit Vaughn [place]shaw [place] [facility] [place] Showing recent visits [...] [place] 04/21/21 Telemedicine Monae Jorgensen APRN, FIGUEROA [facility] [place] 02/24/21 Office Visit [...] Description 10/19/2024 10:00 AM CDT Office Visit [facility] #[address] [place] [address] Kasey Williamson, [address] [place] [address] 11/02/2024 10:20 AM CDT Office Visit [facility] #2 [place] [address] Kasey Williamson, DO 2 [facility] [place] [address] documented as of this encounter Visit Diagnoses [...] documented as of this encounter Care Teams Ground School Instructor Relationship Specialty Start Date End Date Vaughn Bradshaw MD PCP - General Family Medicine 05/18/18 08/26/23 Kasey Williamson DO [address] [address] PCP - General Family Medicine 09/14/23 Claudia Horn APRN [address] [place] [address] Advanced Practice Nurse 08/16/18 Vicenta Raymond DO [address] [place] [address] [place] [address] Consulting Physician Obstetrics & Gynecology 09/25/21 Gus Chowdary MD #[address] [facility] [address] [place] [address] Consulting Physician Colon and Rectal Surgery 07/23/22 Virginie Reyes, RN [place] Nurse Sightseeing Guide 09/14/23 09/14/23 Virginie Reyes, RN [place] Nurse Sightseeing Guide 11/19/23 11/29/23 Virginie Reyes, RN [place] Nurse Sightseeing Guide 12/07/23 05/15/24 Kelley Lopez, INDUSTRIAL TECHNOLOGY TEACHER, ENVIRONMENTAL MONITORING TECHNICIAN #2 [facility] [address] [place] [address] Nurse Practitioner Advanced Practice Nurse 12/09/23 02/22/24 documented as of this encounter
--- OUTSIDE RECORDS SUMMARY | 2024-10-01 18:27 | XMS_ITS | Encounter Summary ---
Author Organization [facility] Address [address] [place] [address] Phone Care Team Providers Care Electronics Inspector Name Role Phone Vaughn Bradshaw MD Primary Care Provider [phone] Claudia Horn GATHERING MACHINE SETTER Unavailable Vicenta Raymond DO Unavailable [phone] Gus Chowdary MD Unavailable Kasey Williamson DO Primary Care Provider [phone] Virginie Reyes RN Unavailable Unavailable Virginie Reyes RN Unavailable Unavailable Virginie Reyes RN Unavailable Unavailable Kelley Lopez GATHERING MACHINE SETTER, TEACHING PASTOR Unavailable [phone] Reason for Visit * Reason Comments Medication Refill Encounter Details Date Type Department Care Team (Late st Contact Info) Description 02/04/2022 Refill [facility] #2 [place] [address] Vaughn Bradshaw MD #1 [place] [address] Medication Refill Social History Tobacco Use Types [...] Coronavirus/COVID-19? No / Unsure 02/02/2022 11:51 AM ELEVATOR INSTALLER APPRENTICE documented as of this encounter Miscellaneous Notes [...] Dept 02/03/22 Office Visit [facility] 12/16/21 Office Visit Vaughn Bradshaw MD [facility] [place] 11/04/21 Office Visit Vaughn Bradshaw MD [facility] [place] 07/04/21 Office Visit Vaughn Bradshaw MD [facility] [place] 04/21/21 Telemedicine Monae Jorgensen APRN, FIG[facility]EROA [facility] 02/24/21 Office Visit Vaughn Bradshaw MD [facility] Kaden Showing recent visits within past 365 days and meeting all other requirements Future Appointments No visits were found meeting these conditions. Showing future appointments within next 90 days and meeting all other requirements ATOR INSTALLER APPRENTICE documented in this encounter Plan of Treatment Upcoming Encounters Date Type Department Care Team (Late st Contact Info) Description 10/19/2024 10:00 AM CDT Office Visit [facility] #2 [place] [address] Kasey Williamson, DO 2 [facility] [address] [place] [address] 11/02/2024 10:20 AM CDT Office Visit [facility] #2 [place] [address] Kasey Williamson, DO 2 [facility] [address] [place] [address] documented as of this encounter Visit Diagnoses Not on filedocumented in this encounter Additional Health Concerns Infection Onset Date Last Indicated Resolved Time COVID - 19 11/15/2023 11/15/2023 11/15/2023 11:4 7 PM CDT VRE 08/18/2024 08/18/2024 Assessment Noted Time PHQ-9 Depression Total Score: 0 11/05/19 22 9:00 AM CDT documented as of this encounter Care Teams Electronics Inspector Relationship Specialty Start Date End Date Vaughn Bradshaw MD PCP - General Family Medicine 05/18/18 08/26/23 Kasey Williamson DO 2 [facility] [address] [place] [address] PCP - General Family Medicine 09/14/23 Claudia Horn APRN [address] [place] [address] Advanced Practice Nurse 08/16/18 Vicenta Raymond DO ONE [address] [facility] [address] [place] [address] Consulting Physician Obstetrics & Gynecology 09/25/21 Gus Chowdary MD #2 [facility] [address] [place] [address] Consulting Physician Colon and Rectal Surgery 07/23/22 Virginie Reyes, RN [place] Nurse Director Of Casino 09/14/23 09/14/23 Virginie Reyes, RN [place] Nurse Director Of Casino 11/19/23 11/29/23 Virginie Reyes, RN [place] Nurse Director Of Casino 12/07/23 05/15/24 Kelley Lopez APRN, TEACHING PASTOR #2 [facility] [address] [place] [address] Nurse Practitioner Advanced Practice Nurse 12/09/23 02/22/24 documented as of this encounter
--- OUTSIDE RECORDS SUMMARY | 2024-10-01 18:27 | XMS_ITS | Encounter Summary ---
Author Organization [facility] Address [address] [place] [address] Phone Care Team Providers Care Palletizer Operator Name Role Phone Vaughn Bradshaw MD Primary Care Provider [phone] Claudia Horn PRINCIPAL STATISTICAL SCIENTIST Unavailable Vicenta Raymond DO Unavailable [phone] Gus Chowdary MD Unavailable Kasey Williamson DO Primary Care Provider [phone] Virginie Reyes RN Unavailable Unavailable Virginie Reyes RN Unavailable Unavailable Virginie Reyes RN Unavailable Unavailable Kelley Lopez PRINCIPAL STATISTICAL SCIENTIST, SUPERINTENDENT LANDFILL OPERATIONS Unavailable [phone] Reason for Visit * Reason Comments Medication Refill Encounter Details Date Type Department Care Team (Late st Contact Info) Description 12/10/2021 Refill [facility] #2 [place] [address] Vaughn Bradshaw MD #1 [place] [address] Medication Refill Social History Tobacco Use Types [...] Visit [facility] #2 [place] [address] Kasey Williamson, DO [address] [address] 11/02/2024 10:20 AM CDT Office Visit [facility] #2 [place] [address] Kasey Williamson, DO [address] [address] documented as of this encounter Visit Diagnoses [...] documented as of this encounter Care Teams Palletizer Operator Relationship Specialty Start Date End Date Vaughn Bradshaw MD PCP - General Family Medicine 05/18/18 08/26/23 Kasey Williamson DO [address] [facility] [address] [place] [address] PCP - General Family Medicine 09/14/23 Claudia Horn APRN [address] [place] [address] Advanced Practice Nurse 08/16/18 Vicenta Raymond DO ONE PROFESSIONAL [facility] [address] [place] [address] Consulting Physician Obstetrics & Gynecology 09/25/21 Gus Chowdary MD #2 [facility] 305 [place] [address] Consulting Physician Colon and Rectal Surgery 07/23/22 Virginie Reyes, RN [place] Nurse Bailer Operators Supervisor 09/14/23 09/14/23 Virginie Reyes, RN [place] Nurse Bailer Operators Supervisor 11/19/23 11/29/23 Virginie Reyes, RN [place] Nurse Bailer Operators Supervisor 12/07/23 05/15/24 Kelley Lopez APRN, SUPERINTENDENT [employer]ANDFILL [employer]PERATIONS #2 [facility] [address] [place] [address] Nurse Practitioner Advanced Practice Nurse 12/09/23 02/22/24 documented as of this encounter
--- OUTSIDE RECORDS SUMMARY | 2024-10-01 18:27 | XMS_ITS | Encounter Summary ---
Author Organization [facility] Address [address] [place] [address] Phone Care Team Providers Care Director Of Accounts Receivable Name Role Phone Vaughn Bradshaw MD Primary Care Provider [phone] Claudia Horn WIRE FENCE ERECTOR Unavailable [phone] Vicenta Raymond DO Unavailable [phone] Gus Chowdary MD Unavailable Kasey Williamson DO Primary Care Provider [phone] Virginie Reyes RN Unavailable Unavailable Virginie Reyes RN Unavailable Unavailable Virginie Reyes RN Unavailable Unavailable Kelley Lopez WIRE FENCE ERECTOR, SEE SUPERVISOR Unavailable [phone] Reason for Visit * Reason Comments Medication Refill Encounter Details Date Type Department Care Team (Late st Contact Info) Description 04/12/2022 Refill [facility] #2 [place] [address] Vaughn Bradshaw MD #1 [place] [address] Medication Refill Social History Tobacco Use Types [...] Prerna Mann RN - 04/13/2022 11:14 AM MIX HOUSE TENDER Medication failed the protocol, provider to [...] Bradshaw MD [facility] 01/20/21 Office Visit BradshawVaughn covarrubias MD [facility] 12/09/20 Office Visit Vaughn Bradshaw MD [facility] 11/28/20 Telemedicine Vaughn Bradshaw MD [facility] 10/03/20 Office Visit Vaughn Bradshaw MD [facility] Showing recent visits within past 730 days and meeting all other requirements Future Appointments Date Type Provider Dept 06/04/22 Appointment Vaughn Bradshaw MD [facility] Showing future appointments within next 90 days and meeting all other requirements Passed - No documented Systolic BP > 200 within past 3 months Passed - Number of active Serotonergic medications less than 3 HOUSE TENDER documented in this encounter Plan of Treatment Upcoming Encounters Date Type Department Care Team (Late st Contact Info) Description 10/19/2024 10:00 AM CDT Office Visit [facility] #2 [place] [address] Kasey Williamson, DO 2 [facility] [address] [place] [address] 11/02/2024 10:20 AM CDT Office Visit [facility] #2 [place] [address] Kasey Williamson, DO 2 [facility] [address] [place] [address] documented as of this encounter Visit Diagnoses [...] of this encounter Care Teams Director Of Accounts Receivable Relationship Specialty Start Date End Date Vaughn Bradshaw MD PCP - General Family Medicine 05/18/18 08/26/23 Kasey iWlliamson DO 2 [facility] [facility] [place] [address] PCP - General Family Medicine 09/14/23 Claudia Horn, FRANCES [address] [place] [address] Advanced Practice Nurse 08/16/18 Vicenta Raymond DO ONE PROFESSIONAL [facility] [address] [place] [address] Consulting Physician Obstetrics & Gynecology 09/25/21 Gus Chowdary MD #2 [facility] [address] [place] [address] Consulting Physician Colon and Rectal Surgery 07/23/22 Virginie Reyes, RN [place] Nurse Marketing Producer 09/14/23 09/14/23 Virginie Reyes, RN [place] Nurse Marketing Producer 11/19/23 11/29/23 Virginie Reyes, RN [place] Nurse Marketing Producer 12/07/23 05/15/24 Kelley Lopez, WIRE FENCE ERECTOR, SEE SUPERVISOR #2 [facility] [address] [place] [address] Nurse Practitioner Advanced Practice Nurse 12/09/23 02/22/24 documented as of this encounter
--- OUTSIDE RECORDS SUMMARY | 2024-10-01 18:27 | XMS_ITS | Encounter Summary ---
Author Organization [facility] Address [address] [place] [address] Phone Care Team Providers Care Champion Of Sustainable Design Name Role Phone Vaughn Bradshaw MD Primary Care Provider [phone] Claudia Horn SOUTH ASIAN HISTORY PROFESSOR Unavailable [phone] Vicenta Raymond DO Unavailable [phone] Gus Chowdary MD Unavailable Kasey Williamson DO Primary Care Provider [phone] Virginie Reyes RN Unavailable Unavailable Virginie Reyes RN Unavailable Unavailable Virginie Reyes RN Unavailable Unavailable Kelley Lopez S[place] HISTORY PROFESSOR, SALESFORCE DEVELOPER Unavailable [phone] Reason for Visit * Reason Comments Medication Refill Encounter Details Date Type Department Care Team (Late st Contact Info) Description 04/04/2022 Refill [facility] #2 [place] [address] Vaughn Bradshaw MD #1 [place] [address] Medication Refill Social History Tobacco Use Types [...] Prerna Mann RN - 04/06/2022 8:34 AM SENIOR OPERATOR Medication filled 04/04/2022 OR OPERATOR documented in this encounter Plan of Treatment Upcoming Encounters Date Type Department Care Team (Late st Contact Info) Description 10/19/2024 10:00 AM CDT Office Visit [facility] #2 [place] [address] Kasey Williamson, DO [address] [address] 11/02/2024 10:20 AM CDT Office Visit [facility] #2 [place] [address] Kasey Williamson, 2 [facility] [address] [place] [address] documented as of this encounter Visit Diagnoses Not on filedocumented in this encounter Additional Health Concerns Infection Onset Date Last Indicated Resolved Time COVID - 19 11/15/202311/15/2023 11/15/2023 11:4 7 PM CDT VRE 08/18/2024 08/18/2024 Assessment Noted Time PHQ-9 Depression Total Score: 0 11/05/19 22 9:00 AM CDT documented as of this encounter Care Teams Champion Of Sustainable Design Relationship Specialty Start Date End Date Vaughn Bradshaw MD PCP - General Family Medicine 05/18/18 08/26/23 Kasey Williamson DO 2 [facility]. [address] [place] [address] PCP - General Family Medicine 09/14/23 Claudia Horn SOUTH [place]SIAN HISTORY PROFESSOR [address] [place] [address] Advanced Practice Nurse 08/16/18 Vicenta Raymond DO ONE PROFESSIONAL [facility] [address] [place] [address] Consulting Physician Obstetrics & Gynecology 09/25/21 Gus Chowdary MD #2 [facility] [address] [place] [address] Consulting Physician Colon and Rectal Surgery 07/23/22 Virginie Reyes, RN [place] Nurse Side Piece Coverer 09/14/23 09/14/23 Virginie Reyes, RN [place] Nurse Side Piece Coverer 11/19/23 11/29/23 Virginie Reyes, RN [place] Nurse Side Piece Coverer 12/07/23 05/15/24 Kelley Lopez, [place] HISTORY PROFESSOR, SALESFORCE DEVELOPER #2 [facility] [address] [place] [address] Nurse Practitioner Advanced Practice Nurse 12/09/23 02/22/24 documented as of this encounter
--- OUTSIDE RECORDS SUMMARY | 2024-10-01 18:27 | XMS_ITS | Encounter Summary ---
Author Organization [facility] Address [address] [place] [address] Phone Care Team Providers Care Potato Grader Name Role Phone Vaughn Bradshaw MD Primary Care Provider [phone] Claudia Horn PROFESSOR OF FAMILY MEDICINE Unavailable Vicenta Raymond DO Unavailable [phone] Gus Chowdary MD Unavailable Kasey Williamson DO Primary Care Provider [phone] Virginie Reyes RN Unavailable Unavailable Virginie Reyes RN Unavailable Unavailable Virginie Reyes RN Unavailable Unavailable Kelley Lopez PROFESSOR OF FAMILY MEDICINE, CUT OUT MACHINE OPERATOR Unavailable [phone] Reason for Visit * Reason Comments Medication Refill Encounter Details Date Type Department Care Team (Late st Contact Info) Description 09/18/2021 Refill [facility] #2 [place] [address] Vaughn Bradshaw MD #1 [place] [address] Medication Refill Social History Tobacco Use Types [...] Alfonso 04/21/21 Telemedicine Monae Jorgensen APRN, FIGUEROA [facility] [place] 02/24/21 Office Visit Vaughn Bradshaw MD [facility] 01/20/21 Office Visit Vaughn Bradshaw MD [facility] [place] 12/09/20 Office Visit Vaughn Bradshaw MD [facility] 11/28/20 Telemedicine Vaughn Bradshaw MD [facility] 10/03/20 Office Visit Vaughn Bradshaw MD [facility] [place] Showing [...] Visit [facility] #2 [place] [address] Kasey Williamson, DO [address] [address] 11/02/2024 10:20 AM CDT Office Visit [facility] #2 [place] [address] Kasey Williamson, DO 2 [facility] [address] [place] [address] documented as of this encounter Visit Diagnoses [...] documented as of this encounter Care Teams Potato Grader Relationship Specialty Start Date End Date Vaughn Bradshaw MD PCP - General Family Medicine 05/18/18 08/26/23 Kasey Williamson DO 2 [facility] [address] [place] [address] PCP - General Family Medicine 09/14/23 Claudia Horn APRN [address] [place] [address] Advanced Practice Nurse 08/16/18 Vicenta Raymond DO ONE PROFESSIONAL [facility] [address] [place] [address] Consulting Physician Obstetrics & Gynecology 09/25/21 Gus Chowdary MD #2 [facility] [address] [place] [address] Consulting Physician Colon and Rectal Surgery 07/23/22 Virginie Reyes RN [place] Nurse Skin Care Instructor 09/14/23 09/14/23 Virginie Reyes, RN [place] Nurse Skin Care Instructor 11/19/23 11/29/23 Virginie Reyes RN [place] Nurse Skin Care Instructor 12/07/23 05/15/24 Kelley Lopez APRN, CUT OUT MACHINE OPERATOR #2 [facility], [address] [place] [address] Nurse Practitioner Advanced Practice Nurse 12/09/23 02/22/24 documented as of this encounter
--- OUTSIDE RECORDS SUMMARY | 2024-10-01 18:27 | XMS_ITS | Encounter Summary ---
Author Organization [facility] Address [address] [place] [address] Phone Care Team Providers Care Business Administrator Name Role Phone Vaughn Bradshaw MD Primary Care Provider [phone] Claudia Horn MAIN GALLEY SCULLION Unavailable Vicenta Raymond DO Unavailable [phone] Gus Chowdary MD Unavailable Kasey Williamson DO Primary Care Provider [phone] Virginie Reyes RN Unavailable Unavailable Virginie Reyes RN Unavailable Unavailable Virginie Reyes RN Unavailable Unavailable Kelley Lopez MAIN GALLEY SCULLION, PHARMACY RESOURCE TECH Unavailable [phone] Reason for Visit * Reason Comments Medication Refill Encounter Details Date Type Department Care Team (Late st Contact Info) Description 05/07/2022 Refill [facility] #2 [place] [address] Vaughn Bradshaw MD #1 [place] [address] Medication Refill Social History Tobacco Use Types [...] Prerna Mann RN - 05/07/2022 8:45 AM GLASS UNLOADING EQUIPMENT TENDER Per nursing clinical judgement, provider to review [...] 90 days and meeting all other requirements S UNLOADING EQUIPMENT TENDER documented in this encounter Plan of Treatment Upcoming Encounters Date Type Department Care Team (Late st Contact Info) Description 10/19/2024 10:00 AM CDT Office Visit [facility] #2 [facility] [place] [address] Kasey Williamson, 2 [facility] [address] [place] [address] 11/02/2024 10:20 AM CDT Office Visit [facility] #2 [facility] [address] Kasey Williamson DO 2 [facility] [address] [place] [address] documented as of this encounter Visit Diagnoses Not on filedocumented in this encounter Additional Health Concerns Infection Onset Date Last Indicated Resolved Time COVID - 19 11/15/2023 11/15/2023 11/15/2023 11:4 7 PM CDT VRE 08/18/2024 08/18/2024 Assessment Noted Time PHQ-9 Depression Total Score: 0 11/05/19 22 9:00 AM CDT documented as of this encounter Care Teams Business Administrator Relationship Specialty Start Date End Date Vaughn Bradshaw MD PCP - General Family Medicine 05/18/18 08/26/23 Kasey Williamson DO 2 [facility] [address] [place] [address] PCP - General Family Medicine 09/14/23 Claudia Horn APRN [address] [place] [address] Advanced Practice Nurse 08/16/18 Vicenta Raymond DO [address] [facility] [address] [place] [address] Consulting Physician Obstetrics & Gynecology 09/25/21 Gus Chowdary MD #[address] [facility] [address] [facility] [address] [place] [address] Consulting Physician Colon and Rectal Surgery 07/23/22 Virginie Reyes, RN [place] Nurse Steel Barrel Reamer 09/14/23 09/14/23 Virginie Reyes, RN [place] Nurse Steel Barrel Reamer 11/19/23 11/29/23 Virginie Reyes, RN [place] Nurse Steel Barrel Reamer 12/07/23 05/15/24 Kelley Lopez, MAIN GALLEY SCULLION, PHARMACY RESOURCE TECH #2 [facility] [address] [place] [address] Nurse Practitioner Advanced Practice Nurse 12/09/23 02/22/24 documented as of this encounter
--- OUTSIDE RECORDS SUMMARY | 2024-10-01 18:27 | XMS_ITS | Encounter Summary ---
Author Organization [facility] Address [address] [place] [address] Care Team Providers Care Axminster Weaver Name Role Phone Kasey Williamson DO Primary Care Provider [phone] Reason for Visit * Reason Comments Refill Request Encounter Details Date Type Department Care Team (Late st Contact Info) Description 09/13/2024 Refill [facility] - Nephrology [address] [place] [address], [place] [id number] Allison Leavitt, COMMUNITY NUTRITION EDUCATOR-AUTO CLUB TRAVEL COUNSELOR [address] [place] [address] [facility] [place], [place] [id number] Refill Request Social History Tobacco Use Types Packs/Day Years [...] Recorded Patient Health Questionnaire-2 Score 2 01/11/2023 [facility] [place] of Occupat ional Health - Occupational Stress [...] any time in the past 12 m onths, were you homeless or living in a long-term (including now)? No 08/19/2024 Comments No Sex and Gender Information Value Date Recorded Sex Assigned at Not on file Legal Sex Female 12:53 PM RETORT KILN BURNER Gender Identity Not on file Sexual Orientation Not on file documented as of this encounter Functional Status * Is person deaf or have serious hearing difficulty? Answer Date of Assessment Author No 08/19/2024 9:39 PM Roque Meyer RN * Is person blind or have serious difficulty seeing? Answer Date of Assessment Author No 08/19/2024 9:39 PM Roque Meyer RN * Does person have serious difficulty walking/climbing stairs? Answer Date of Assessment Author No 08/19/2024 9:39 PM Roque Meyer RN * Does person have difficulty dressing/bathing? Answer Date of Assessment Author No 08/19/2024 9:39 PM CDT Roque Napier RN * Does person have difficulty doing errands alone? Answer Date of Assessment Author No 08/19/2024 9:39 PM CDT Roque Napier RN documented as of this encounter Mental Status * Does person have difficulty concentrating/remembering/making decisions? Answer Entry Date Author No 08/19/2024 9:39 PM CDT Roque Napier RN documented in this encounter Plan of Treatment Upcoming Encounters Date Type Department Care Team (Late st Contact Info) Description 10/05/2024 4:00 PM CDT Office Visit [facility] - [address] [address] Nalini Ramírez, PhD [address] [place] [address] 11/28/2024 3:30 PM CDT Office Visit [facility] - [address] [phone] Jorge Tran MD [address] [place] [phone] 02/01/2025 12:30 PM RETORT KILN BURNER Appointment [facility] [address] [place] [address] Jorge Tran MD [address] [place] [phone] 02/01/2025 2:30 PM RETORT KILN BURNER Office Visit [facility] - GI [address] [place] [phone] Jorge Tran MD [address] [place] [phone] 02/12/2025 11:00 AM RETORT KILN BURNER Office Visit [facility] - Endocrinology [address] [place] [address], [place] [phone] Phoebe Joseph MD [address] [place] [address] DIV [place] [phone] documented as of this encounter Goals Goal Patient Goal Type Associated Problems Recent Progress Patient-Stated? Author Medication Management General On track( 8:34 AM CDT) No Fidelia Lainez, RN Note: Expected end date: 1 year Interventions: Take all medications as prescribed Safety General On track( 8:34 AM CDT) No Melany Kuhn, FAYE Note: Expected end date: ongoing Interventions: Your nurse will assess your risk for falls/injury each visit Make and keep follow-up appointments General On track( 8:34 AM CDT) No Melany Kuhn, FAYE documented as of this encounter Visit Diagnoses Not on filedocumented in this encounter Care Teams Axminster Weaver Relationship Specialty Start Date End Date Kasey Williamson DO [address] [place] [phone] PCP - General Family Medicine 12/27/23 documented as of this encounter
--- OUTSIDE RECORDS SUMMARY | 2024-10-01 18:27 | XMS_ITS | Encounter Summary ---
Author Organization [facility] Address [address] [place] [address] Phone Care Team Providers Care Special Services Supervisor Name Role Phone Vaughn Bradshaw MD Primary Care Provider [phone] Claudia Horn DRIVER SUPERVISOR Unavailable [phone] Vicenta Raymond DO Unavailable [phone] Gus Chowdary MD Unavailable Kasey Williamson DO Primary Care Provider [phone] Vigrinie Reyes RN Unavailable Unavailable Virginie Reyes RN Unavailable Unavailable Virginie Reyes RN Unavailable Unavailable Kelley Lopez DRIVER SUPERVISOR, PHYSICIAN COMPENSATION ANALYST Unavailable [phone] Reason for Visit * Reason Comments Medication Refill Encounter Details Date Type Department Care Team (Late st Contact Info) Description 08/23/2021 Refill [facility] - [facility] [address] [place] [address] Vaughn Bradshaw MD [address] [place] [address] Medication Refill Social History Tobacco Use Types [...] Dept 07/04/21 Office Visit Vaughn Bradshaw MD [facility] 04/21/21 Telemedicine Monae Jorgensen APRN, PHYSICIAN COMPENSATION ANALYST [facility] Showing recent visits within past 182 days [...] [facility] [address] [place] [address] Kasey Williamson, DO [address] [address] 11/02/2024 10:20 AM CDT Office Visit [facility] [address] [place] [address] Kasey Williamson, DO [address] [facility] [address] [place] [address] documented as of this encounter Visit Diagnoses [...] documented as of this encounter Care Teams Special Services Supervisor Relationship Specialty Start Date End Date Vaughn Bradshaw MD PCP - General Family Medicine 05/18/18 08/26/23 Kasey Williamson DO [address] [facility] [address] [place] [address] PCP - General Family Medicine 09/14/23 Claudia Horn APRN [address] [place] [address] Advanced Practice Nurse 08/16/18 Vicenta Raymond DO [facility] [address] [place] [address] Consulting Physician Obstetrics & Gynecology 09/25/21 Gus Chowdary MD [address] [facility] [address] [place] [address] Consulting Physician Colon and Rectal Surgery 07/23/22 Virginie Reyes, FAYE [place] Nurse Crusher And Blender Operator 09/14/23 09/14/23 Virginie Reyes, RN [place] Nurse Crusher And Blender Operator 11/19/23 11/29/23 Virginie Reyes, RN [place] Nurse Crusher And Blender Operator 12/07/23 05/15/24 Kelley Lopez APRN, PHYSICIAN COMPENSATION ANALYST [address] [place] [facility], [address] [place] [address] Nurse Practitioner Advanced Practice Nurse 12/09/23 02/22/24 documented as of this encounter
--- OUTSIDE RECORDS SUMMARY | 2024-10-01 18:27 | XMS_ITS | Encounter Summary ---
Author Organization [facility] Address [address] [place] [address] Care Team Providers Care Honing Machine Operator Name Role Phone Terence Dela Cruz MD Primary Care Provider Unava ilable Encounter Details Date Type Department Care Team (Late st Contact Info) Description 01/28/2018 Abstract [facility] [address] [place] [address] , Generic Conversion, Social History Tobacco Use [...] on filedocumented in this encounter Care Teams Honing Machine Operator Relationship Specialty Start Date End Date Terence Dela Cruz MD PCP - General 12/15/13 documented as of this encounter
--- OUTSIDE RECORDS SUMMARY | 2024-10-01 18:27 | XMS_ITS | Encounter Summary ---
Author Organization [facility] Address [address] [place] [address] Phone Care Team Providers Care Watch Crystal Cutter Name Role Phone Vaughn Bradshaw MD Primary Care Provider [phone] Claudia Horn SIGNAL CONSTRUCTOR Unavailable [phone] Vicenta Raymond DO Unavailable [phone] Gus Chowdary MD Unavailable Kasey Williamson DO Primary Care Provider Virginie Reyes RN Unavailable Unavailable Virginie Reyes RN Unavailable Unavailable Virginie Reyes RN Unavailable Unavailable Kelley Lopez SIGNAL CONSTRUCTOR, GUEST SERVICE SUPERVISOR Unavailable [phone] Reason for Visit * Reason Comments Medication Refill Encounter Details Date Type Department Care Team (Late st Contact Info) Description 04/03/2022 Refill [facility] [address] [place] [address] Vaughn Bradshaw MD [address] [place] [address] Medication Refill Social History Tobacco Use Types [...] [facility] 04/21/21 Telemedicine Monae Jorgensen APRN, GUEST SERVICE SUPERVISOR Kyleamee Alfonso Showing recent visits within past 365 days and meeting all other requirements Future Appointments Date Type Provider Dept 06/04/22 Appointment Vaughn Bradshaw MD [facility] Showing future appointments within next 90 days and meeting all other requirements ER FUSER documented in this encounter Plan of Treatment Upcoming Encounters Date Type Department Care Team (Late st Contact Info) Description 10/19/2024 10:00 AM CDT Office Visit [facility] [address] [place] [address] Kasey Williamson, DO 2 [facility] [address] [place] [address] 11/02/2024 10:20 AM CDT Office Visit [facility] [address] [place] [address] Kasey Williamson, [address] [address] documented as of this encounter Visit Diagnoses Not on filedocumented in this encounter Additional Health Concerns Infection Onset Date Last Indicated Resolved Time COVID - 19 11/15/2023 11/15/2023 11/15/2023 11:4 7 PM CDT VRE 08/18/2024 08/18/2024 Assessment Noted Time PHQ-9 Depression Total Score: 0 11/05/19 22 9:00 AM CDT documented as of this encounter Care Teams Watch Crystal Cutter Relationship Specialty Start Date End Date Vaughn Bradshaw MD PCP - General Family Medicine 05/18/18 08/26/23 Kasey Williamson DO 2 [facility] [address] [address] PCP - General Family Medicine 09/14/23 Claudia Horn APRN [address] [place] [address] Advanced Practice Nurse 08/16/18 Vicenta Raymond DO [address] [place] [address] [place] [address] Consulting Physician Obstetrics & Gynecology 09/25/21 Gus Chowdary MD #[address] [facility] [address] [place] [address] Consulting Physician Colon and Rectal Surgery 07/23/22 Virginie Reyes, RN [place] Nurse Catering Sous Chef 09/14/23 09/14/23 Virginie Reyes, RN [place] Nurse Catering Sous Chef 11/19/23 11/29/23 Virginie Reyes, RN [place] Nurse Catering Sous Chef 12/07/23 05/15/24 Kelley Lopez, SIGNAL CONSTRUCTOR, GUEST SERVICE SUPERVISOR [address] [facility] [address] [place] [address] Nurse Practitioner Advanced Practice Nurse 12/09/23 02/22/24 documented as of this encounter
--- OUTSIDE RECORDS SUMMARY | 2024-10-01 18:27 | XMS_ITS | Clinical Summary ---
Author Organization [facility] Address [address] [facility], [address] [address] Phone Care Team Providers Care General Contractor Name Role Phone JustinaClaudia Nay DANIELS Unavailable [phone] Vicenta Raymond DO Unavailable [phone] Gus Chowdary MD Unavailable Kasey Williamson DO Primary Care Provider [phone] Allergies Active Allergy Reactions Criticality Noted Date Comments Trichophyton Runny Nose,Unknown High 11/21/2017 Coughing, watery eyes Nsaids Unknown 09/14/2023 Other Runny Nose Medium 05/16/2018 [facility] Water eyes Medications [place]-3 Fatty Acids (OMEGA 3 PO) Take by mouth in the morning and at bedtime. Active ferrous sulfate 325 (65 Fe) MG TabletIndications :Pancytopenia Take 1 Tablet by mouth daily. 30 Tablet 5 01/21/20 21 Active fenofibrate micronized (LOFIBRA) 200 MG Capsule Take 1 Capsule by mouth daily. 90 Capsule 06/25/19 22 Active clotrimazole-beta methasone (LOTRISONE) 1-0.05 % Lotion APPLY TOPICALLY TO THE AFFECTED AREA TWICE DAILY NEEDED FOR RASH 05/08/19 23 Active nadolol (CORGARD) 20 MG TabletIndications :Essential hypertension TAKE 1 TABLET BY MOUTH DAILY 90 Tablet 2 06/25/19 23 Active azelastine (OPTIVAR) 0.05 % Solution INSTILL 1 DROP INTO BOTH EYES TWICE DAILY 18 mL 07/16/19 23 Active traMADol (ULTRAM) 50 MG TabletIndications :Chronic left shoulder pain Take 1 Tablet by mouth every 6 hours as needed for Moderate or more severe pain. 120 Tablet 12/18/19 23 Active allopurinol (ZYLOPRIM) 300 MG Tablet Take 1 Tablet by mouth daily. 09/19/19 22 Active cyanocobalamin 1000 MCG Tablet Take 1 Tablet by mouth daily. 04/21/19 22 Active dicyclomine (BENTYL) 20 MG Tablet Take 1 Tablet by mouth 2 times daily. 02/07/20 21 Active fexofenadine (Anabelle Allergy) 180 MG TabletIndications :Subacute maxillary sinusitis Take 1 Tablet by mouth daily. 90 Tablet 3 05/04/19 24 Active FLUoxetine (PROzac) 20 MG CapsuleIndication s:Moderate episode of recurrent major depressive disorder (HCC) TAKE 2 CAPSULES BY MOUTH DAILY 180 Capsule 1 07/30/19 24 Active Xifaxan 550 MG Tablet Take 1 Tablet by mouth 2 times daily. 60 Tablet 11 09/14/19 24 Active Melatonin 5 MG TabletIndications :Insomnia, unspecified type TAKE 1 TABLET BY MOUTH EVERY NIGHT 30 Tablet 09/15/19 24 Active ergocalciferol (VITAMIN D) 86786 UNIT Capsule Take 1 Capsule by mouth once a week. 12 Capsule 09/15/19 24 Active EPINEPHrine (EpiPen 2-Harshil) 0.3 MG/0.3ML Solution Auto-injector 0.3 mL by Intramuscular route once as needed for Anaphylaxis. 1 mL 3 11/16/19 24 Active cyclobenzaprine (FLEXERIL) 10 MG Tablet Take 10 mg by mouth. 02/14/20 24 Active busPIRone HCl 7.5 MG TabletIndications :Anxiety and depression Take 1 Tablet by mouth 2 times daily. 180 Tablet 2 04/21/19 25 Active albuterol 108 (90 Base) MCG/ACT Aerosol Solution INHALE 2 PUFFS BY MOUTH EVERY 4 HOURS NEEDED FOR WHEEZING OR COUGH 54 g 1 04/27/19 25 Active Ubrogepant (Ubrelvy) 50 MG TabletIndications :Chronic migraine without aura without status migrainosus, not intractable Take 1 tablet by mouth at onset of headache. May repeat dose in 2 hours if no relief. Max of 2 tablets in 24 hours. 16 Tablet 05/03/19 25 Active azelastine (ASTELIN) 0.1 % SolutionIndicatio ns:Subacute maxillary sinusitis 2 Sprays by Nasal route 2 times daily. Use in each nostril as directed 30 mL 2 05/03/19 25 Active levothyroxine (SYNTHROID) 50 MCG Tablet Take 1 Tablet by mouth daily. 90 Tablet 1 06/14/19 25 Active Blood Glucose Monitoring Suppl (Accu-Chek Silvana Plus) w/Device Kit Use daily as directed. DX E11.9 1 Kit 07/11/19 25 Active Alcohol Swabs PadsIndications:T ype 2 diabetes mellitus with hyperglycemia, with long-term current use of insulin ([facility]) Use one swab with each injection 100 Swab . 3 07/11/19 25 Active Insulin Pen Needle (Sure Comfort Pen Manly) 31G X 8 MM MiscIndications:T ype 2 diabetes mellitus with hyperglycemia, with long-term current use of insulin ([facility]) USE FOUR TIMES DAILY DIRECTED 200 Pen Needle 3 07/15/19 25 Active Lancet Devices (Lancet Device with Ejector) [facility] Lancet pen to be used with lancets. 1 Each 07/20/19 25 Active insulin glargine (Lantus) 100 UNIT/ML Solution 25 Units by Subcutaneous route every morning. Active polyethylene glycol (GLYCOLAX, MIRALAX) 17 g PackIndications:C onstipation Take 1 Packet by mouth 2 times daily as needed for Constipation - 1st line. Dissolve in 4-8 oz of liquid. Indications: Constipation 90 Packet 07/28/19 25 Active ondansetron (ZOFRAN-ODT) 4 MG TABLET DISPERSIBLE Take 1 Tablet by mouth every 6 hours as needed for Nausea - 1st line. 10 Tablet 07/28/19 25 Active furosemide (LASIX) 40 MG Tablet Take 1 Tablet by mouth daily. 90 Tablet 07/28/19 25 Active amLODIPine Besy-Benazepril HCl 10-20 MG Capsule Take 1 Capsule by mouth daily. 90 Capsule 3 07/29/19 25 Active simvastatin (ZOCOR) 40 MG Tablet Take 0.5 Tablets by mouth daily. 90 Tablet 1 07/29/19 25 Active Lancets MiscIndications:T ype 2 diabetes mellitus with hyperglycemia, with long-term current use of insulin ([facility]) TEST BLOOD SUGAR FOUR TO FIVES TIMES DAILY 500 Lancet . 3 08/05/19 25 Active montelukast (SINGULAIR) 10 MG Tablet Take 1 Tablet by mouth every evening. 90 Tablet 1 08/17/19 25 Active HumaLOG KwikPen 100 UNIT/ML Solution Pen-injectorIndic ations:Type 2 diabetes mellitus with hyperglycemia, with long-term current use of insulin ([facility]) INJECT UNDER THE SKIN PER SLIDING SCALE THREE TIMES DAILY WITH MEALS. MAX DAILY DOSE OF 30 UNITS 15 mL 08/18/19 25 Active lactulose (CHRONULAC) 10 GM/15ML SolutionIndicatio ns:Hepatic Encephalopathy Take 30 mL by mouth 3 times daily. 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 45 Tablet 1 08/31/19 25 Active Glucose Blood (Accu-Chek Guide Test) Strip Test 4-5 times per day 500 Strip 3 09/06/19 25 Active fluticasone (FLONASE) 50 MCG/ACT SuspensionIndicat ions:Seasonal allergies 1-2 Sprays by Nasal route daily. Use in each nostril as directed. 16 g 8 09/14/19 25 Active fluticasone (FLONASE) 50 MCG/ACT SuspensionIndicat ions:Seasonal allergies 1-2 Sprays by Nasal route daily. Use in each nostril as directed. 1 g 11 09/14/19 24 025 Discontin ued(Reord er) Glucose Blood (OneTouch Verio) Strip Test 4-5 times per day 500 Strip 3 08/05/19 25 025 Discontin ued(Formu mookie change) Active Problems Problem Noted Date Diagnosed Date Hypertensive urgency 07/26/2024 TATYANA (acute kidney injury) 07/25/2024 Mitral stenosis 11/18/2023 Morbid obesity 01/14/2022 Postmenopausal bleeding 09/04/2021 Overview (11/04/2021): Added automatically from request for surgery [id number] Need for influenza vaccination 01/30/2019 Hypertension 05/18/2018 Hyperlipidemia 05/18/2018 Hypothyroid 05/18/2018 Arthritis 05/18/2018 Thrombocytopenia due to hypersplenism 05/18/2018 Migraines 05/18/2018 Iron deficiency anemia due to chronic blood loss 12/10/2017 Pancytopenia 12/10/2017 Splenomegaly 12/10/2017 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 12/10/2017 Diabetes mellitus 03/22/2003 Depression Resolved Problems Problem Noted Date Diagnosed Date Resolved Date Hepatic encephalopathy 08/18/202408/19 Chest pain in adult 11/16/2023 11/18/19 24 Hepatic encephalopathy 01/14/202212/07 Acute cystitis 01/14/2022 12/07/2022 High blood sugar 05/23/2018 01/30/2019 Encounter for immunization 05/18/2018 1 04/01/2018 Acute non-recurrent maxillary sinusitis 05/18/2018 01/30/2019 Encounters Date Type Department Care Team Description 09/17/2024 Travel 09/13/[facility] [place] [address] Kasey Williamson, DO Medication Refill 09/04/2024 [facility] [place] [address] Kasey Williamson, DO Medication Refill; Follow-up 08/22/2024 Documentation [facility] [place] [address] Kasey Williamson, DO 08/21/2024 Patient Outreach [facility] Patient Management [address] [place] [phone] Maria Teresa Bahena RN Transition of Care (TCM 1st attempt) 08/18/2024 9:27 AM CDT - 08/19/2024 12:21 PM CDT [facility] [address] [place] [phone] Henri Patel MD Dianati, Behfar, MD Smith, Sylwia Tee, MANAGER BABY, RATE MANAGER Hepatic encephalopathy (HCC) Discharge Disposition: Discharged to home or Selfcare 08/18/2024 Travel 08/16/2024 [facility] [place] [address] Vivian Tucker, MANAGER BABY, RATE MANAGER Medication Refill 08/15/[address] [facility] [address] [place] [address] Kasey Williamson, DO Medication Renewal Reviewed 08/10/[address] [facility] [address] [place] [address] Kasey Williamson, DO Medication Refill 08/04/2024 11:00 AM CDT Clinical Support [facility] [address] [place] [address] [facility] Blood pressure check (Primary Dx) Discharge Disposition: Discharged to home or Selfcare 08/04/[address] [facility] [address] [place] [address] Kasey Williamson, DO Medication Refill 08/04/[address] [facility] [address] [place] [address] Kasey Williamson, DO Medication Refill 08/03/2024 Travel 07/28/2024 10:00 AM CDT Office Visit [facility] [address] [place] [address] Arthur Daniel MD Urinary frequency (Primary Dx); Primary hypertension; 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 (HCC) Discharge Disposition: Discharged to home or Selfcare 07/28/2024 [facility] [address] [place] [phone] Kasey Williamson, Follow-up 07/27/2024 Travel 07/25/2024 8:18 PM CDT - 07/27/2024 2:54 PM CDT [facility] [address] [place] [phone] Siobhan Parada APRN, RATE MANAGER Modesto Sparrow MD Hypertensive urgency Discharge Disposition: Home Health Care Sv 07/25/2024 Travel 07/25/2024 Nurse Triage [facility] [address] [address] Kasey Williamson DO High Blood Pressure 07/20/2024 11:30 AM CDT Lab [facility] [address] [phone] [facility]Ancillary Vitamin D deficiency; Flank pain; Hypothyroidism, unspecified type Discharge Disposition: Discharged to home or Selfcare 07/20/2024 11:00 AM CDT Office Visit [facility] [address] [place] [phone] Helena Conklin PAC Flank pain (Primary Dx); Hypothyroidism, unspecified type Discharge Disposition: Discharged to home or Selfcare 07/20/2024 Results Follow-Up [facility] [address] [place] [phone] Helena Conklin, STU CMP (COMPREHENSIVE METABOLIC PANEL), THYROID STIMULATING HORMONE (TSH), CBC WITH AUTO DIFFERENTIAL, Additional followed-up results: 2 07/20/2024 Results Follow-Up [facility] [address] [place] [address] Kasey Williamson, DO VITAMIN D, 25 HYDROXY TOTAL 07/20/2024 Travel 07/20/2024 Telephone [facility] Call [facility] [address] [place] [address] Kasey Williamson, Advice Only 07/18/2024 9:00 AM CDT Office Visit [facility] [address] [place] [address] Vivian Tucker, MANAGER BABY, RATE MANAGER Type 2 diabetes mellitus with hyperglycemia, with long-term current use of insulin (HCC) (Primary Dx); Primary hypertension Discharge Disposition: Discharged to home or Selfcare 07/17/2024 Travel 07/13/2024 [facility] [place] [address] Vaughn Bradshaw MD Medication Refill 07/08/[address] [facility] [address] [place] [address] Vaughn Bradshaw MD Medication Renewal Reviewed from Last 3 Months Immunizations Immunization Administration Dates Next Due Covid-19, Mrna, Lnp-s, PF, 1 00 mcg/0.5 mL Dose (Moderna) 11/16/2020,10/19/2020 Hepatitis A And Hepatitis B Vaccine 02/17/2018 Influenza Vaccine, Quadrivalent, PF 11/20,02/03/2022,01/20/2021,01/30 Influenza, Injectable, Mdck,quadrivalent,with Preservative 02/17/2018 Influenza,Split Virus,Trivalent,Injectable,PF 03/05/2024 Pneumococcal Vaccine Adult - 23 Valent 8 Pneumococcal conjugate PCV20 , polysaccharide [id number] conjugate, adjuvant, PF 12/07/2022 TDAP Vaccine 05/18/2018 [...] drink = 0.6 oz pur e alcohol) [facility] Utilities Answer Date Recorded In the past 12 months has [employer], gas, oil, or water [place] threatened to shut off services in your home? No 08/18/2024 Social Connection and Isolation Panel Answer Date Recorded In a typical week, how many times do you talk on the phone with family, friends, or neighbors? More than three times a week 08/18/2024 How often do you get togethe r with friends or relatives? More than three times a week 08/18/2024 How often do you attend [facility] or restoration services? Never 08/18/2024 Do you belong to any clubs o r organizations such as sabianism groups, unions, fraternal or athletic groups, or school groups? Yes 08/18/2024 How often do you attend meet ings of the clubs or organizations you belong to? Never 08/18/2024 Are you , , di vorced, , never , or living with a partner? 08/18/2024 AUDIT-C Answer Date Recorded Q1: How often do you have a drink containing alcohol? Never 08/18/2024 Q2: How many drinks containi ng alcohol do you have on a typical day when you are drinking? Patient does not drink Q3: How often do you have si x or more drinks on one occasion? Never 08/18/2024 Overall Financial Resource Strain (CARDIA) Answe r Date Recorded How hard is it for you to pa y for the very basics like food, housing, medical care, and heating? Not hard at all 08/18/2024 PHQ-2 Answer Date Recorded Total Score - Questions 1-9 0 0503/2024 [facility] - Occupational Stress Questionnaire Answer Date Recorded Do you feel stress - tense, restless, nervous, or anxious, or unable to sleep at night because your mind is troubled all the time - these days? To some extent 08/18/2024 Exercise Vital Sign Answer Date Recorde d On average, how many days pe r week do you engage in moderate to strenuous exercise (like a brisk walk)? 0 days 08/18/2024 On average, how many minutes do you engage in exercise at this level? 0 min 08/18/2024 Hunger Vital Sign Answer Date Recorded Within the past 12 months, y ou worried that your food would run out before you got the money to buy more. Never true 08/19/19 25 Within the past 12 months, t he food you bought just didn't last and you didn't have money to get more. Never true 08/18/2024 PRAPARE - Transportation Answer Date Re corded In the past 12 months, has l ack of transportation kept you from medical appointments or from getting medications? No 07/22 In the past 12 months, has l ack of transportation kept you from meetings, work, or from getting things needed for daily living? No 08/18/2024 Housing Stability Vital Sign Answer Jose e [...] in a jail (including now)? No 08/04/2023 Housing Stability Vital Sign Answer Jose e Recorded In the last 12 months, was t here a time when you were not able to pay the mortgage or rent on time? No 08/18/2024 In the past 12 months, how m any times have you moved where you were living? 0 08/18/2024 At any time in the past 12 m [facility], were you homeless or living in a jail (including now)? No 08/18/2024 Education Answer Date Recorded What is the [...] Sign Reading Time Taken Comments Blood Pressure 125/66 08/19/2024 7:00 AM CDT Pulse 100 08/19/2024 4:00 AM CDT Temperature 35.9 C (96.6 F) 08/19/2024 7:00 AM CDT Respiratory Rate 16 08/19/2024 7:45 AM CDT Oxygen Saturation 99% 08/19/2024 7:45 AM CDT Inhaled Oxygen Concentration - - Weight 99.3 kg (219 lb) 08/18/2024 9:31 AM CDT Height 154.9 cm (5' 1) 08/18/2024 9:31 AM CDT Body Mass Index 41.38 08/18/2024 9:31 AM CDT Plan of Treatment Upcoming Encounters Date Type Department Care Team (Late st Contact Info) Description 10/19/2024 10:00 AM CDT Office Visit [facility] [place] [address] Kasey Williamson, DO 2 Te [facility] [address] [address] 11/02/2024 10:20 AM CDT Office Visit [facility] [address] [place] [address] Kasey Williamson, DO 2 Te [facility]. [address] [place] [address] Health Maintenance Due Date Last Done Comments Cologuard 10/01/2008 Immunochemical Fecal Occult Blood 10/01/2008 Zoster Immunization (1 of 2) 10/01/2013 Colonoscopy 01/11/2021 01/11/2018, 11/24/2016 Colorectal Cancer Screening 01/11/2021 Diabetes: Foot Exam 08/07/2023 08/06/2022, 08/06/2022, 08/06/2022, Additional history exists Diabetes: Eye Exam 12/23/2023 12/22/2022, 09/04/2021, 02/24/2021 Mammogram 07/28/2024 07/29/2023, 07/29/2023, 01/06/2021, Additional history exists Influenza Immunization (#1) 11/20/202402/19, 12/07/2022, 02/03/2022, Additional history exists Diabetes: Hemoglobin A1c 01/17/202507/18/ 025, 06/07/2024, 03/02/2024, Additional history exists Respiratory Syncytial Virus (RSV) Immunization (Adult) (1 - Risk 60-74 years 1-dose series) 05/24/2025 Postponed from 2023 (Patient Temporarily Declines) Diabetes: Nephropathy Screening 08/19/2025 08/19/2024, 08/18/2024, 07/25/2024, Additional history exists Td Immunization Every 10 Years (Adults With 1 Tdap) 05/18/2028 05/18/2018 Hepatitis C Virus (HCV) Screening Completed 12/10/2017 Hepatitis B Immunization Discontinued 02/17/2018 SARS-COV-2 Immunization Discontinued 05/17/19 22, 11/16/2020, 10/19/2020 Pneumococcal Immunization (50+ years) Completed 12/07/2022, 02/17/2018 Pneumococcal Immunization Combined Discontinued 12/07/2022, 02/17/2018 Human Papillomavirus (HPV) Immunization Aged Out No longer eligible based on patient's age to complete this topic Meningococcal Immunization (ACWY) Aged Out No longer eligible based on patient's age to complete this topic Rotavirus Immunization Aged Out No lo nger eligible based on patient's age to complete this topic Procedures Procedure Name Priority Date/Time Associated Diagnosis Comments POCT GLUCOSE Routine 08/19/2024 11:05 AM CDT AMMONIA STAT 08/19/2024 10:06 AM CDT POCT GLUCOSE Routine 08/19/2024 7:05 AM CDT CBC WITH AUTO DIFFERENTIAL Routine 08/19/2024 5:03 AM CDT CMP (COMPREHENSIVE METABOLIC PANEL) Routine 08/19/2024 5:03 AM CDT COMPLETE BLOOD COUNT (CBC) WITH DIFF Routine 08/19/2024 5:03 AM CDT POCT GLUCOSE Routine 08/19/2024 12:32 AM CDT RHYTHM STRIP 08/19/2024 12:00 AM CDT RHYTHM STRIP 08/19/2024 12:00 AM CDT POCT GLUCOSE Routine 08/18/2024 10:46 PM CDT POCT GLUCOSE Routine 08/18/2024 8:09 PM CDT POCT GLUCOSE Routine 08/18/2024 1:03 PM CDT URINALYSIS REFLEX IF INDICATED BY ABNORMAL RESULTS STAT 08/18/2024 11:45 AM CDT CULTURE, URINE STAT 08/18/2024 11:45 AM CDT TROPONIN I, HIGH SENSITIVITY (HSTRP) STAT 08/18/2024 10:53 AM CDT XR CHEST SINGLE VIEW PORTABLE STAT 08/18/2024 10:11 AM CDT GOLD TOP TUBE STAT 08/18/2024 9:41 AM CDT BLUE TOP TUBE STAT 08/18/2024 9:41 AM CDT EXTRA TUBES STAT 08/18/2024 9:41 AM CDT CBC WITH AUTO DIFFERENTIAL STAT 08/18/2024 9:40 AM CDT TROPONIN I, HIGH SENSITIVITY (HSTRP) STAT 08/18/2024 9:40 AM CDT LIPASE STAT 08/18/2024 9:40 AM CDT AMMONIA STAT 08/18/2024 9:40 AM CDT CMP (COMPREHENSIVE METABOLIC PANEL) STAT 08/18/2024 9:40 AM CDT COMPLETE BLOOD COUNT (CBC) WITH DIFF STAT 08/18/2024 9:40 AM CDT CRITICAL CARE Routine 08/18/2024 9:32 AM CDT EKG 12 LEAD STAT 08/18/2024 9:30 AM CDT RHYTHM STRIP 08/18/2024 12:00 AM CDT RHYTHM STRIP 08/18/2024 12:00 AM CDT EKG SCAN 08/18/2024 12:00 AM CDT URINALYSIS REFLEX IF INDICATED BY ABNORMAL RESULTS Routine 07/28/2024 11:07 AM CDT Urinary frequency CULTURE, URINE Routine 07/28/2024 11:07 AM CDT Urinary frequency POCT GLUCOSE Routine 07/27/2024 11:29 AM CDT POCT GLUCOSE Routine 07/27/2024 7:10 AM CDT CBC WITH AUTO DIFFERENTIAL Routine 07/27/2024 3:49 AM CDT COMPLETE BLOOD COUNT (CBC) WITH DIFF Routine 07/27/2024 3:49 AM CDT BASIC METABOLIC PANEL W/ CALCIUM TOTAL Routine 07/27/2024 3:49 AM CDT RHYTHM STRIP 07/27/2024 12:00 AM CDT RHYTHM STRIP 07/27/2024 12:00 AM CDT POCT GLUCOSE Routine 07/26/2024 7:55 PM CDT POCT GLUCOSE Routine 07/26/2024 4:38 PM CDT POCT GLUCOSE Routine 07/26/2024 11:06 AM CDT AEROSOL NEBULIZER-INITIAL Routine 07/26/2024 8:11 AM CDT POCT GLUCOSE Routine 07/26/2024 7:05 AM CDT CBC WITH AUTO DIFFERENTIAL STAT 07/26/2024 4:51 AM CDT MAGNESIUM (MG) Routine 07/26/2024 4:51 AM CDT TROPONIN I, HIGH SENSITIVITY (HSTRP) Timed 07/26/2024 4:51 AM CDT COMPLETE BLOOD COUNT (CBC) WITH DIFF STAT 07/26/2024 4:51 AM CDT BASIC METABOLIC PANEL W/ CALCIUM TOTAL STAT 07/26/2024 4:51 AM CDT TROPONIN I, HIGH SENSITIVITY (HSTRP) STAT 07/26/2024 12:40 AM CDT POCT GLUCOSE Routine 07/26/2024 12:20 AM CDT RHYTHM STRIP 07/26/2024 12:00 AM CDT RHYTHM STRIP 07/26/2024 12:00 AM CDT RHYTHM STRIP 07/26/2024 12:00 AM CDT TROPONIN I, HIGH SENSITIVITY (HSTRP) STAT 07/25/2024 9:[address] HEAD OR BRAIN WO CONTRAST Stat with Interpretation 07/25/2024 9:03 PM CDT CRITICAL CARE Routine 07/25/2024 8:39 PM CDT GOLD TOP TUBE STAT 07/25/2024 8:35 PM CDT BLUE TOP TUBE STAT 07/25/2024 8:35 PM CDT CBC WITH AUTO DIFFERENTIAL STAT 07/25/2024 8:35 PM CDT EXTRA TUBES STAT 07/25/2024 8:35 PM CDT MAGNESIUM (MG) STAT 07/25/2024 8:35 PM CDT TROPONIN I, HIGH SENSITIVITY (HSTRP) STAT 07/25/2024 8:35 PM CDT CMP (COMPREHENSIVE METABOLIC PANEL) STAT 07/25/2024 8:35 PM CDT COMPLETE BLOOD COUNT (CBC) WITH DIFF STAT 07/25/2024 8:35 PM CDT EKG 12 LEAD STAT 07/25/2024 8:18 PM CDT EKG SCAN 07/25/2024 12:00 AM CDT RHYTHM STRIP 07/25/2024 12:00 AM CDT EKG SCAN 07/25/2024 12:00 AM CDT CBC WITH AUTO DIFFERENTIAL Routine 07/20/2024 11:33 AM CDT Flank pain THYROID STIMULATING HORMONE (TSH) Routine 07/20/2024 11:33 AM CDT Hypothyroidism, unspecified type COMPLETE BLOOD COUNT (CBC) WITH DIFF Routine 07/20/2024 11:33 AM CDT Flank pain CMP (COMPREHENSIVE METABOLIC PANEL) Routine 07/20/2024 11:33 AM CDT Flank pain VITAMIN D, 25 HYDROXY TOTAL Routine 07/20/2024 11:33 AM CDT Vitamin D deficiency CULTURE, URINE Routine 07/20/2024 11:30 AM CDT Flank pain POCT UA AUTOMATED W/O MICRO Routine 07/20/2024 11:08 AM CDT Flank pain POCT GLYCOSYLATED HEMOGLOBIN Routine 07/18/2024 9:35 AM CDT Type 2 diabetes mellitus with hyperglycemia, with long-term current use of insulin (HCC) ARNOLD SCREENING BILATERAL DIGITAL W CAD W EDMOND Routine 07/29/2023 12:00 AM CDT Breast cancer screening by mammogram [facility] DILATED EYE EXAM 12/22/2022 12:00 AM CDT HEPATITIS C ANTIBODY Routine 12/10/2017 9:23 AM CDT Pancytopenia (HCC) Iron deficiency anemia due to chronic blood loss Splenomegaly from Last 3 Months or Most Recently Relevant to Health Maintenance Results * (ABNORMAL) POCT Glucose (08/19/2024 11:05 AM CDT) Only the most recent of13 resultswithin the time period is included. GLUCOSE,BEDSID E POCT 295(H) 70 - 99 mg/dL 08/19/2024 11:11 AM CDT [facility] Comment:RN Notified Blood 08/19/2024 11:0 5 AM CDT 08/19/2024 11:11 AM CDT us None Provider POINT OF CARE TESTING Final Resu lt [facility] [address] [place] [address] * (ABNORMAL) AMMONIA (08/19/2024 10:06 AM CDT) Only the most recent of2 resultswithin the time period is included. AMMONIA 96(H) 18 - 72 umol/L 08/19/2024 10:23 AM CDT [facility] Blood Venipuncture / Unknown 08/19/2024 10:06 AM CDT 08/19/2024 10:08 AM CDT us Sylwia Parada MANAGER BABY, RATE MANAGER CHEMISTRY ORDERABLES Fi nal Result [facility] [address] [place] [address] * (ABNORMAL) CBC with Auto Differential (08/19/2024 5:03 AM CDT) Only the most recent of6 resultswithin the time period is included. WBC 2.31(L) 4.00 - 12.00 10(3)/mcL 08/19/2024 6:13 AM CDT [facility] RBC 3.36(L) 3.80 - 5.30 10(6)/[facility] 08/19/2024 6:13 AM CDT [facility] HEMOGLOBIN (HGB) 9.4(L) 12.0 - 15.8 g/dL 08/19/2024 6:13 AM CDT [facility] HEMATOCRIT (HCT) 29.6(L) 36.0 - 47.0 % 08/19/2024 6:13 AM CDT [facility] MCV 88.1 82.0 - 96.0 fL 08/19/2024 6:13 AM CDT [facility] MCH 28.0 26.0 - 34.0 pg 08/19/2024 6:13 AM CDT [facility] MCHC 31.8 31.0 - 36.0 g/dL 08/19/2024 6:13 AM CDT [facility] PLATELET COUNT 50(L) 140 - 440 10(3)/[facility] 08/19/2024 6:13 AM CDT [facility] RDW 14.8 11.8 - 15.5 % 08/19/2024 6:13 AM CDT [facility] MPV 11.4 9.7 - 12.4 fL 08/19/2024 6:13 AM CDT [facility] NEUTROPHILS 47.6 47.0 - 73.0 % 08/19/2024 6:13 AM CDT [facility] LYMPHOCYTES 30.7 18.0 - 42.0 % 08/19/2024 6:13 AM CDT [facility] MONOCYTES 14.3(H) 4.0 - 12.0 % 08/19/2024 6:13 AM CDT [facility] EOSINOPHILS 6.5(H) 0.0 - 5.0 % 08/19/2024 6:13 AM CDT [facility] BASOPHILS 0.9 0.0 - 1.0 % 08/19/2024 6:13 AM CDT [facility] ABSOLUTE NEUTROPHILS 1.10(L) 1.60 - 7.70 10(3)/[facility] 08/19/2024 6:13 AM CDT [facility] ABSOLUTE LYMPHOCYTES 0.71(L) 1.30 - 3.20 10(3)/[facility] 08/19/2024 6:13 AM CDT [facility] ABSOLUTE MONOCYTES 0.33 0.20 - 1.00 10(3)/[facility] 08/19/2024 6:13 AM CDT [facility] ABSOLUTE EOSINOPHIL 0.15 0.00 - 0.40 10(3)/[facility] 08/19/2024 6:13 AM CDT [facility] ABSOLUTE BASOPHILS 0.02 0.00 - 0.10 10(3)/[facility] 08/19/2024 6:13 AM CDT [facility] NRBC PER 100 WBC 0 08/20/19 6:13 AM CDT [facility] RESULTS ARE CONSISTENT WITH PERIPHERAL SMEAR REVIEW Yes 08/19/2024 6:13 AM CDT [facility] Blood Venipuncture / Unknown 08/19/2024 5:03 AM CDT 08/19/2024 5:30 AM CDT us Sylwia Parada MANAGER BABY, RATE MANAGER HEMATOLOGY ORDERABLES F inal Result [facility] [address] [place] [address] * (ABNORMAL) Comprehensive Metabolic Panel (CMP) (08/19/2024 5:03 AM CDT) Only the most recent of4 resultswithin the time period is included. SODIUM 140 136 - 145 mmol/L 08/19/2024 6:04 AM CDT [facility] POTASSIUM 4.0 3.5 - 5.1 mmol/L 08/19/2024 6:04 AM CDT [facility] CHLORIDE 110(H) 98 - 107 mmol/L 08/19/2024 6:04 AM T [facility] CO2, VENOUS 23 22 - 30 mmol/L 08/19/2024 6:04 AM T [facility] ANION GAP 11.0 <18.0 mmol/L 08/19/2024 6:04 AM CDT [facility] GLUCOSE 134(H) 70 - 99 mg/dL 08/19/2024 6:04 AM CDT [facility] BUN 30(H) 10 - 20 mg/dL 08/19/2024 6:04 AM T [facility] CREATININE, BLOOD 1.70(H) 0.60 - 1.00 mg/dL 08/19/2024 6:04 AM T [facility] BUN/CREATININE RATIO 18 12 - 20 ratio 08/19/2024 6:04 AM T [facility] TOTAL PROTEIN 7.2 6.0 - 8.0 g/dL 08/19/2024 6:04 AM T [facility] ALBUMIN 3.5 3.5 - 5.0 g/dL 08/19/2024 6:04 AM T [facility] A/G RATIO 0.9(L) 1.0 - 2.2 08/19/2024 6:04 AM T [facility] CALCIUM 9.2 8.7 - 10.5 mg/dL 08/19/2024 6:04 AM T [facility] T BILI 1.0 0.2 - 1.2 mg/dL 08/19/2024 6:04 AM CDT [facility] SGOT (AST) 51(H) <43 U/L 08/19/2024 6:04 AM CDT [facility] SGPT (ALT) 45 <56 U/L 08/19/2024 6:04 AM CDT [facility] ALKALINE PHOSPHATASE 134 40 - 150 U/L 08/19/2024 6:04 AM CDT [facility] GFR, ESTIMATED 34(L) >=60 08/19/2024 6:04 AM CDT [facility] Comment: Creatinine Clearance is the preferred criteria for selecting drug dose adjustments in renally impaired patients. The GFR is provided as additional pertinent clinical information. GFR is reported in mL/min/1.73 sq m. Calculation based on the Chronic Kidney Disease Epidemiology Collaboration (CKD- EPI) equation refit without adjustment for race. GFR, EST. 37(L) >=60 025 6:04 AM CDT [facility] GFR, EST. NONAFRICAN 31(L) >=60 08/19/2024 6:04 AM CDT [facility] Blood Venipuncture / Unknown 08/19/2024 5:03 AM CDT 08/19/2024 5:32 AM CDT us Sylwia Parada MANAGER BABY, RATE MANAGER CHEMISTRY ORDERABLES Fi nal Result Performing Organization Address City/[facility] Co de Phone Number [facility] [address] [place] [address] * RHYTHM STRIP (08/19/2024 12:00 AM CDT) Only the most recent of10 resultswithin the time period is included. 08/19/2024 us Provider Scan IMG ECG ORDERABLES Final Result Performing Organization Address City/[facility]/ZIP Co de Phone Number RESULTING AGENCY * (ABNORMAL) Urinalysis w/ Reflex (08/18/2024 11:45 AM CDT) Only the most recent of2 resultswithin the time period is included. SPECIFIC GRAVITY 1.015 1.003 - 1.030 08/18/2024 12:26 PM CDT [facility] URINE PH 6.0 5.0 - 9.0 08/18/2024 12:26 PM CDT [facility] WBC ESTERASE 100 /uL(A) Negative 08/18/2024 12:26 PM CDT [facility] NITRITE Negative Negative 08/18/2024 12:26 PM CDT [facility] PROTEIN, RANDOM URINE 100 mg/dL(A) Negative 08/18/2024 12:26 PM CDT [facility] URINE GLUCOSE, QUAL 1000 mg/dL(A) Negative 08/18/2024 12:26 PM CDT [facility] URINE KETONES Negative Negative 08/18/2024 12:26 PM CDT [facility] UROBILINOGEN Normal Normal mg/dL 08/18/2024 12:26 PM CDT [facility] URINE BLOOD 10 /uL(A) Negative agapito/ul 08/18/2024 12:26 PM CDT [facility] URINALYSIS COLOR Yellow 08/18/2024 12:26 PM CDT [facility] URINALYSIS CLARITY Slightly Cloudy 08/18/2024 12:26 PM T [facility] WBC (Urine) 21-50(A) Negative, 0-5 /hpf 08/18/2024 12:26 PM CDT [facility] URINE RBC'S 0-2 Negative, 0-2 /hpf 08/18/2024 12:26 PM CDT [facility] EPITHELIAL CELLS Moderate amount /lpf 08/18/2024 12:26 PM CDT [facility] BACTERIA, URINE Few(A) Negative /hpf 08/18/2024 12:26 PM CDT [facility] CASTS Occasional Cellular Casts(A) Negative, 0-2/lpf, 3-5/lpf, 6-10/lpf, 11-20/lpf, >20/lpf /lpf 08/18/2024 12:26 PM CDT [facility] Urine URINE SPECIMEN / Unknown Non-Phlebotomy Collection / Unknown 08/18/2024 11:45 AM CDT 08/18/2024 11:55 AM CDT us Henri Patel MD URINE ORDERABLES Final Re sult [facility] [address] [place] [address] * Culture, Urine (08/18/2024 11:45 AM CDT) Only the most recent of3 resultswithin the time period is included. CULTURE RESULTS ENTEROCOCCUS FAECIUM 08/22/2024 3:34 PM CDT [facility] Comment:VANCOMYCIN SCREEN IS POSITIVE. THIS IS VRE. PLEASE FOLLOW APPROPRIATE PATIENT ISOLATION PROTOCOLS. CULTURE RESULTS Also mixed growth of distal urethral contaminants 08/22/2024 3:34 PM CDT [facility] Urine URINE SPECIMEN / Unknown Non-Phlebotomy Collection / Unknown 08/18/2024 11:45 AM CDT 08/18/2024 11:55 AM CDT Narrative [facility] - 08/22/2024 3:34 PM CDT Susceptibility not performed on enterococcus species. Due to high achievable concentrations in urine, Ampicillin is the drug of choice for treating infections limited to the lower urinary tract (regardless of Vancomycin susceptibility). For allergic patients, Nitrofurantoin or a quinolone may be substituted. Organism Antibiotic Method Susceptibility Enterococcus faecium Ampicillin [facility] IIB >=32 mcg/ml: Resistant Enterococcus faecium Benzylpenicillin [facility] IIB >=64 mcg/ml: Resistant Enterococcus faecium Linezolid [facility] IIB 2 mcg/ml: Susceptible Enterococcus faecium Tigecycline [facility] IIB <=0.12 mcg/ml: Susceptible Enterococcus faecium Vancomycin [facility] IIB >=32 mcg/ml: Resistant us Henri Patel MD MICROBIOLOGY - GENERAL OR DERABLES Final Result Performing Organization Address City/[facility]/ZIP Co de Phone Number [facility] [address] [place] [address], * TROPONIN I, HIGH SENSITIVITY (HSTRP) (08/18/2024 10:53 AM CDT) Only the most recent of6 resultswithin the time period is included. TROPONIN I, HIGH SENSITIVITY- [place] 4 <=14 ng/L 08/18/2024 12:01 PM CDT [facility] Comment: High-sensitivity troponin I results are reported in ng/L making the result appear to be 1,000 times higher than the contemporary troponin I value which is reported in ng/ml. Results from [facility]. Blood Venipuncture / Unknown 08/18/2024 10:53 AM CDT 08/18/2024 11:29 AM CDT Henri Patel MD CHEMISTRY ORDERABLES Binta l Result Performing Organization Address [facility] Co de Phone Number [facility] [address] [place] [address] * XR CHEST SINGLE VIEW PORTABLE (08/18/2024 10:11 AM CDT) Anatomical Region Laterality Modality Chest N/A Digital Radiogra phy 08/18/2024 11:1 3 AM CDT Impressions 08/18/2024 11:16 AM CDT IMPRESSION: Mild cardiomegaly. No acute pulmonary findings. Narrative 08/18/2024 11:16 AM CDT EXAM DESCRIPTION: XR CHEST SINGLE VIEW PORTABLE REASON FOR STUDY: AMS due to noncompliance with medication for non-alcoholic cirrhosis of liver for several days. HX. DM, HTN TECHNIQUE: 1 radiographic view(s) of the chest. COMPARISON: 11/15/2023 FINDINGS: LUNGS: No focal opacity, pleural effusion, or pneumothorax. HEART/MEDIASTINUM: Cardiac silhouette is mildly enlarged. Mediastinal and hilar contours appear normal. LINES/TUBES: None. BONES: No acute osseous abnormality. Surgical hardware in the cervical spine. THIS IS AN ELECTRONICALLY VERIFIED FINAL REPORT 08/18/2024 11:13 AM - Electronically signed by Jimmy Narvaez M.D. 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 HX. DM, HTN TECHNIQUE: 1 radiographic view(s) of the chest. COMPARISON: 11/15/2023 FINDINGS: LUNGS: No focal opacity, pleural effusion, or pneumothorax. HEART/MEDIASTINUM: Cardiac silhouette is mildly enlarged. Mediastinal and hilar contours appear normal. LINES/TUBES: None. BONES: No acute osseous abnormality. Surgical hardware in the cervical spine. THIS IS AN ELECTRONICALLY VERIFIED FINAL REPORT 08/18/2024 11:13 AM - Electronically signed by Jimmy Narvaez M.D. KR: GARY Report ID: [id number] Reading Location: [id number] IMPRESSION: Mild cardiomegaly. No acute pulmonary findings. us Henri Patel MD IMG DIAGNOSTIC ORDERABLES Final Result * Gold Top Tube (08/18/2024 9:41 AM CDT) Only the most recent of2 resultswithin the time period is included. Blood No Phlebotomy Charged / Unknown 08/18/2024 9:41 AM CDT 08/18/2024 9:55 AM CDT us Henri Patel MD CHEMISTRY ORDERABLES Binta l Result [facility] [address] [place] [address] * Blue Top Tube (08/18/2024 9:41 AM CDT) Only the most recent of2 resultswithin the time period is included. Blood No Phlebotomy Charged / Unknown 08/18/2024 9:41 AM CDT 08/18/2024 9:55 AM CDT us Henri Patel MD HEMATOLOGY ORDERABLES Fin al Result Performing Organization Address [facility] de Phone Number [facility] [address] [place] [address] * (ABNORMAL) Lipase [id number] (08/18/2024 9:40 AM CDT) LIPASE 118(H) 8 - 78 U/L 08/18/2024 10:25 AM CDT [facility] Blood Venipuncture / Unknown 08/18/2024 9:40 AM CDT 08/18/2024 9:54 AM CDT us Henri Patel MD CHEMISTRY ORDERABLES Binta l Result Performing Organization Address [facility] de Phone Number [facility] [address] [place] [address] * Critical Care (08/18/2024 9:32 AM CDT) Narrative Henri Patel MD - 08/18/2024 9:32 AM CDT Henri Patel MD 08/18/2024 11:08 AM Critical Care Performed by: Henri Patel MD Authorized by: Henri Patel MD Critical care provider statement: Critical care time (minutes): 45 Critical care time was exclusive of: Separately billable procedures and treating other patients Critical care was necessary to treat or prevent imminent or life-threatening deterioration of the following conditions: Hepatic failure Critical care was time spent personally by me on the following activities: Development of treatment plan with patient or surrogate, blood draw for specimens, discussions with consultants, discussions with primary provider, evaluation of patient's response to treatment, examination of patient, review of old charts, re-evaluation of patient's condition, pulse oximetry, ordering and review of radiographic studies, ordering and review of laboratory studies, ordering and performing treatments and interventions and obtaining history from patient or surrogate Care discussed with: admitting provider Henri Patel MD PROCEDURE/MINOR SURGICAL ORDERABLES Final Result * EKG 12 LEAD (08/18/2024 9:30 AM CDT) Only the most recent of2 resultswithin the time period is included. Ventricular Rate 68 BPM EXTERNAL EKG Atrial Rate 68 BPM EXTERNAL EKG P-R Interval 176 ms EXTERNAL EKG QRS Duration 86 ms EXTERNAL EKG Q-T Duration 408 ms EXTERNAL EKG QTC CALCULATION 433 ms EXTERNAL EKG P [place] 37 degrees EXTERNAL EKG R [place] 9 degrees EXTERNAL EKG T [place] 74 degrees EXTERNAL EKG 08/18/2024 9:30 AM CDT Impressions EXTERNAL EKG - 08/21/2024 10:41 PM CDT Normal sinus rhythm Normal ECG When compared with ECG of 25-JUL-2024 20:18, QT has shortened Confirmed by Jasmina Ramirez ([id number]) on 08/21/2024 10:41:33 PM Narrative Procedure Note Jasmina Ramirez DO - 08/21/2024 IMPRESSION: Normal sinus rhythm Normal ECG When compared with ECG of 25-JUL-2024 20:18, QT has shortened Confirmed by Jasmina Ramirez ([id number]) on 08/21/2024 10:41:33 PM Henri Patel MD IMG ECG ORDERABLES Final Result EXTERNAL EKG * EKG SCAN (08/18/2024 12:00 AM CDT) Only the most recent of3 resultswithin the time period is included. 08/18/2024 us Provider Scan IMG ECG ORDERABLES Final Result RESULTING AGENCY * (ABNORMAL) BMP with Ca, Total (07/27/2024 3:49 AM CDT) Only the most recent of2 resultswithin the time period is included. SODIUM 135(L) 136 - 145 mmol/L 07/27/2024 4:34 AM CDT [facility] POTASSIUM 4.0 3.5 - 5.1 mmol/L 07/27/2024 4:34 AM CDT [facility] CHLORIDE 108(H) 98 - 107 mmol/L 07/27/2024 4:34 AM CDT [facility] CO2, VENOUS 23 22 - 30 mmol/L 07/27/2024 4:34 AM CDT [facility] ANION GAP 8.0 <18.0 mmol/L 07/27/2024 4:34 AM CDT [facility] GLUCOSE 252(H) 70 - 99 mg/dL 07/27/2024 4:34 AM CDT [facility] BUN 18 10 - 20 mg/dL 07/27/2024 4:34 AM CDT [facility] CREATININE, BLOOD 1.28(H) 0.60 - 1.00 mg/dL 07/27/2024 4:34 AM CDT [facility] BUN/CREATININE RATIO 14 12 - 20 ratio 07/27/2024 4:34 AM CDT [facility] CALCIUM 8.0(L) 8.7 - 10.5 mg/dL 07/27/2024 4:34 AM CDT [facility] GFR, ESTIMATED 48(L) >=60 07/27/2024 4:34 AM CDT [facility] Comment: Creatinine Clearance is the preferred criteria for selecting drug dose adjustments in renally impaired patients. The GFR is provided as additional pertinent clinical information. GFR is reported in mL/min/1.73 sq m. Calculation based on the Chronic Kidney Disease Epidemiology Collaboration (CKD- EPI) equation refit without adjustment for race. GFR, EST. 52(L) >=60 025 4:34 AM CDT [facility] GFR, EST. NONAFRICAN 43(L) >=60 07/27/2024 4:34 AM CDT [facility] Blood Venipuncture / Unknown 07/27/2024 3:49 AM CDT 07/27/2024 4:10 AM CDT us Stephie Travis APRN, CNP CHEMISTRY ORDERABLES Binta l Result Performing Organization Address City/[facility] Co de Phone Number [facility] [address] [place] [address] * MAGNESIUM (MG) (07/26/2024 4:51 AM CDT) Only the most recent of2 resultswithin the time period is included. MAGNESIUM 1.8 1.6 - 2.6 mg/dL 07/26/2024 5:49 AM CDT [facility] Blood Venipuncture / Unknown 07/26/2024 4:51 AM CDT 07/26/2024 5:00 AM CDT us Stehpie Travis APRN, CNP CHEMISTRY ORDERABLES Binta l Result Performing Organization Address [facility] de Phone Number [facility] [address] [place] [address] * CT HEAD OR BRAIN WO CONTRAST (07/25/2024 9:03 PM CDT) Anatomical Region Laterality Modality Head N/A Computed Tomogra phy 07/25/2024 9:19 PM CDT Impressions 07/25/2024 9:21 PM CDT IMPRESSION: No acute intracranial findings. Narrative 07/25/2024 9:21 PM CDT EXAM DESCRIPTION: CT HEAD OR BRAIN WO CONTRAST REASON FOR STUDY: Headache, sudden, severe TECHNIQUE: Axial images acquired through the brain without intravenous contrast. Images stored on PACS. Automated exposure control was used as a dose optimization technique for this examination. COMPARISON: None FINDINGS: BRAIN: No hemorrhage, edema or mass effect. No recent infarct. Normal white matter. EXTRA-AXIAL SPACES: No fluid collections. No masses. CALVARIUM: No fracture. SINUSES/MASTOIDS: Bilateral maxillary sinus mucosal thickening. ORBITS: No significant abnormality. OTHER: No other significant abnormality. THIS IS AN ELECTRONICALLY VERIFIED FINAL REPORT 07/25/2024 9:19 PM - Electronically signed by Jimmy Narvaez M.D. KR: GARY Report ID: [id number] Reading Location: [id number] Procedure Note Jimmy Narvaez MD - 07/25/2024 EXAM DESCRIPTION: CT HEAD OR BRAIN WO CONTRAST REASON FOR STUDY: Headache, sudden, severe TECHNIQUE: Axial images acquired through the brain without intravenous contrast. Images stored on PACS. Automated exposure control was used as a dose optimization technique for this examination. COMPARISON: None FINDINGS: BRAIN: No hemorrhage, edema or mass effect. No recent infarct. Normal white matter. EXTRA-AXIAL SPACES: No fluid collections. No masses. CALVARIUM: No fracture. SINUSES/MASTOIDS: Bilateral maxillary sinus mucosal thickening. ORBITS: No significant abnormality. OTHER: No other significant abnormality. THIS IS AN ELECTRONICALLY VERIFIED FINAL REPORT 07/25/2024 9:19 PM - Electronically signed by Jimmy Narvaez M.D. KR: GARY Report ID: [id number] Reading Location: [id number] IMPRESSION: No acute intracranial findings. us Siobhan Parada APRN, CNP IMErich CT ORDERABLES Fin al Result * Critical Care (07/25/2024 8:39 PM CDT) Narrative Arun Junior MD - 07/25/2024 8:39 PM CDT Arun Junior MD 07/26/2024 3:28 AM Critical Care Performed by: Siobhan Parada APRN, CNP Authorized by: Siobhan Parada APRN, CNP Critical care provider statement: Critical care time (minutes): 35 Critical care time was exclusive of: Separately billable procedures and treating other patients Critical care was necessary to treat or prevent imminent or life-threatening deterioration of the following conditions: acute kidney injury. Critical care was time spent personally by me on the following activities: Blood draw for specimens, development of treatment plan with patient or surrogate, evaluation of patient's response to treatment, examination of patient, obtaining history from patient or surrogate, ordering and performing treatments and interventions, ordering and review of laboratory studies, ordering and review of radiographic studies, pulse oximetry, re-evaluation of patient's condition and review of old charts I assumed direction of critical care for this patient from another provider in my specialty: no Care discussed with: admitting provider us Siobhan Parada APRN, RATE MANAGER PROCEDURE/MINOR SURGI ROBERT ORDERABLES Final Result * VITAMIN D, 25 HYDROXY TOTAL (07/20/2024 11:33 AM CDT) VITAMIN D, 25 HYDROX 28.6 ng/mL 07/20/2024 2:27 PM CDT [facility] Blood Venipuncture / Unknown 07/20/2024 11:33 AM CDT 07/20/2024 11:33 AM CDT Narrative [facility] - 07/20/2024 2:27 PM CDT Published reference ranges for Vitamin D vary depending on time and place and method of testing, and on patient's age, sex, ethnicity and levels of other measured analytes such as parathormone, calcium and phosphorus. The result should be evaluated in conjunction with clinical findings and suspicions. [employer] and Endocrine Clinical Practice Guidelines: Status Vitamin D levels (ng/mL) Deficient <=20 At risk of inadequacy 21-29 Sufficient 30-100 Centers of Disease Control and Prevention Guidelines: Status Vitamin D levels (ng/mL) Deficient <13 At risk of inadequacy 13-19 Sufficient 20-50 Possibly harmful >50 References: [employer], 2010 Dietary reference intakes for calcium and vitamin D. [place]: The National Academies Press. Shamar M, Steve N, Hallie CASTELLANO, et al., Evaluation, treatment, and prevention of Vitamin D deficiency: an Endocrinology Clinical Practice Guideline. JCEM 2011 96: 7 5593-8173. Mehnaz A, Eloy C, Tushar D, et al., Vitamin D Status: [place], [id number], [facility] data brief, no. 59, MD [place]: [facility] for Health Statistics. 2011. Kasey Rachel Williamson DO CHEMISTRY ORDERABLES Final Re sult Performing Organization Address City/[facility]/ZIP Co de Phone Number [facility] [address] [place] [address] * THYROID STIMULATING HORMONE (TSH) (07/20/2024 11:33 AM CDT) [facility] TSH 1.260 0.300 - 5.000 mIU/L 07/20/2024 2:26 PM CDT [facility] Blood Venipuncture / Unknown 07/20/2024 11:33 AM CDT 07/20/2024 11:33 AM CDT Helena Conklin PAC CHEMISTRY ORDERABLES Fin al Result Performing Organization Address [facility] Co de Phone Number [facility] [address] [place] [address] * (ABNORMAL) POCT UA AUTOMATED W/O MICRO (07/20/2024 11:08 AM CDT) Pathologist [facility] POC UA SPECIFIC GRAVITY 1.015 URINE PH 5.0 5.0 - 9.0 POC URINE LEUKOCYTES 500 /uL(A) Negative Evelio/uL POC URINE NITRITE Negative Negative POC URINE PROTEIN 30 mg/dL(A) Negative mg/dL POC URINE GLUCOSE 100 mg/dL(A) Negative, Norm mg/dL POC URINE KETONE Negative Negative mg/dL POC URINE UROBILINOGEN Norm Norm, 0.2 E.U./dL (mg/dL), 1 E.U./dL (mg/dL) POC URINE BILIRUBIN Negative Negative mg/dL POC URINE BLOOD INSTRUMENT 50 Agapito/uL(A) Negative Agapito/uL POC URINE COLOR Yellow POC URINE CLARITY Cloudy Urine 07/20/2024 11:0 8 AM CDT Helena Conklin PAC POINT OF CARE TESTING (M ANUAL) Final Result * (ABNORMAL) POCT GLYCOSYLATED HEMOGLOBIN (07/18/2024 9:35 AM CDT) HGB-A1C 9.9(A) 4 - 6 % Blood 07/18/2024 9:35 AM CDT Vivian Jonny Tucker MANAGER BABY, RATE MANAGER POINT OF CARE TESTING (M ANUAL) Final Result * ARNOLD SCREENING BILATERAL DIGITAL W CAD W EDMOND (07/29/2023 12:00 AM CDT) Anatomical Region Laterality Modality breast Bilateral Mammography 07/29/2023 Vaughn Bradshaw MD IMG MAMMO ORDERABLES Final Resul t * HM DILATED EYE EXAM (12/22/2022 12:00 AM CDT) 12/22/2022 Provider Scan PROCEDURE/MINOR SURGICAL ORDERAB LES Final Result SCAN * HEPATITIS C ANTIBODY (12/10/2017 9:23 AM CDT) hepatitis C antibody 0.49 <1 S/CO 12/10/2017 11:14 PM CDT [facility] Comment: Signal/Cutoff ratio < 0.79 is Nondetected Signal/Cutoff ratio 0.80-0.99 is Grayzone Signal/Cutoff ratio > 0.99 is Detected Supplemental assays are recommended if signal/cutoff ratio is >/=1.00. Signal/cutoff ratio result >/= 5.00 is 97% predictive of positivity for recombinant immunoblot assay (RIBA) and will be reported to the [place] Department of Public Health as required. 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 PRE-ARREST: Use entire range of life support measures to stabilize the patient. * Full Code Date Activated Date Inactivated Comments 11/16/2023 3:11 AM 07/27/2024 2:33 PM CPR-Full Neema tment: FULL ARREST: Attempt Resuscitation/CPR wit intubation and [...] Avani Almaraz Daughter/Step-Daughter Healthcare POA Care Teams General Contractor Relationship Specialty Start Date End Date Kasey Williamson DO [address] [facility] [address] [place] [address] PCP - General Family Medicine 09/14/23 Claudia Horn, MANAGER BABY [address] [place] [address] Advanced Practice Nurse 08/16/18 Vicenta Raymond DO ONE PROFESSIONAL [facility] [address] [place] [address] Consulting Physician Obstetrics & Gynecology 09/25/21 Gus Chowdary MD #2 [facility] [address] [place] [address] Consulting Physician Colon and Rectal Surgery 07/23/22
--- OUTSIDE RECORDS SUMMARY | 2024-10-01 18:27 | XMS_ITS | Encounter Summary ---
Author Organization [facility] Address [address] [place] [address] Phone Care Team Providers Care Disk Sharpener Name Role Phone Vaughn Bradshaw MD Primary Care Provider [phone] Claudia Horn COMMUNITY ASSISTANT Unavailable Vicenta Raymond DO Unavailable [phone] Gsu Chowdary MD Unavailable Kasey Williamson DO Primary Care Provider [phone] Virginie Reyes RN Unavailable Unavailable Virginie Reyes RN Unavailable Unavailable Virginie Reyes RN Unavailable Unavailable Kelley Lopez COMMUNITY ASSISTANT, CLINICAL HAEMATOLOGIST Unavailable [phone] Reason for Visit * Reason Comments Medication Refill Encounter Details Date Type Department Care Team (Late st Contact Info) Description 03/28/2022 Refill [facility] #2 [place] [address] Vaughn Bradshaw MD #1 [place] [address] Medication Refill Social History Tobacco Use Types [...] Prerna Mann RN - 03/30/2022 8:31 AM NOVELTY TWISTER TENDER Refill requested too soon. LTY TWISTER TENDER documented in this encounter Plan of Treatment Upcoming Encounters Date Type Department Care Team (Late st Contact Info) Description 10/19/2024 10:00 AM CDT Office Visit [facility] #2 [place] [address] Kasey Williamson, DO 2 [facility] [address] [place] [address] 11/02/2024 10:20 AM CDT Office Visit [facility] #2 [place] [address] Kasey Williamson, DO 2 [facility] [address] [place] [address] documented as of this encounter Visit Diagnoses Diagnosis Anxiety and depression Dysthymic disorder documented in this encounter Additional Health Concerns Infection Onset Date Last Indicated Resolved Time COVID - 19 11/15/2023 11/15/2023 11/15/2023 11:4 7 PM CDT VRE 08/18/2024 08/18/2024 Assessment Noted Time PHQ-9 Depression Total Score: 0 11/05/19 22 9:00 AM CDT documented as of this encounter Care Teams Disk Sharpener Relationship Specialty Start Date End Date Vaughn Bradshaw MD PCP - General Family Medicine 05/18/18 08/26/23 Kasey Williamson DO 2 [facility] [address] [place] [address] PCP - General Family Medicine 09/14/23 Claudia Horn, COMMUNITY ASSISTANT [address] [place] [address] Advanced Practice Nurse 08/16/18 Vicenta Raymond DO ONE PROFESSIONAL [facility] [address] [place] [address] Consulting Physician Obstetrics & Gynecology 09/25/21 Gus Chowdary MD #2 [facility] [address] [place] [address] Consulting Physician Colon and Rectal Surgery 07/23/22 Virginie Reyes, RN [place] Nurse Distribution Center Assistant 09/14/23 09/14/23 Virginie Reyes, RN [place] Nurse Distribution Center Assistant 11/19/23 11/29/23 Virginie Reyes, RN [place] Nurse Distribution Center Assistant 12/07/23 05/15/24 Kelley Lopez, COMMUNITY ASSISTANT, CLINICAL HAEMATOLOGIST #[address] [facility] [address] [place] [address] Nurse Practitioner Advanced Practice Nurse 12/09/23 02/22/24 documented as of this encounter
--- OUTSIDE RECORDS SUMMARY | 2024-10-01 18:27 | XMS_ITS | Encounter Summary ---
Author Organization [facility] Address [address] [place] [address] Phone Care Team Providers Care Drawer Liner Name Role Phone Vaughn Bradshaw MD Primary Care Provider [phone] Claudia Horn MALTER OPERATOR Unavailable [phone] Vicenta Ryamond DO Unavailable [phone] Gus Chowdary MD Unavailable Kasey Williamson DO Primary Care Provider [phone] Virginie Reyes RN Unavailable Unavailable Virginie Reyes RN Unavailable Unavailable Virginie Reyes RN Unavailable Unavailable Kelley Lopez MALTER OPERATOR, FLIGHT DYNAMICIST Unavailable [phone] Reason for Visit * Reason Onset Date Comments Hip Pain 05/26/2022 Back pain Back Pain 05/26/2022 Shoulder Pain 05/26/2022 Encounter Details Date Type Department Care Team (Late st Contact Info) Description 05/26/2022 Nurse Triage [facility] [address] [place] [address] Vaughn Bradshaw MD #1 [place] [address] Hip Pain (Back pain/); Back Pain; Shoulder [...] Coronavirus/COVID-19? No / Unsure 05/26/2022 6:33 PM COMPUTER NETWORK ENGINEER documented as of this encounter Miscellaneous [...] Provider Department Dept Phone 05/27/2022 9:45 AM Vivian Tucker [facility] [phone] 06/09/2022 5:45 PM Vaughn Bradshaw [facility] [phone] UTER NETWORK ENGINEER documented in this encounter Plan of Treatment Upcoming Encounters Date Type Department Care Team (Late st Contact Info) Description 10/19/2024 10:00 AM CDT Office Visit [facility] #2 [place] [address] Kasey Williamson, DO 2 [facility] [address] [place] [address] 11/02/2024 10:20 AM CDT Office Visit [facility] #2 [place] [address] Kasey Williamson, DO 2 [facility] [address] [place] [address] documented as of this encounter Visit Diagnoses Not on filedocumented in this encounter Additional Health Concerns Infection Onset Date Last Indicated Resolved Time COVID - 19 11/15/2023 11/15/2023 11/15/2023 11:4 7 PM CDT VRE 08/18/2024 08/18/2024 Assessment Noted Time PHQ-9 Depression Total Score: 0 11/05/19 22 9:00 AM CDT documented as of this encounter Care Teams Drawer Liner Relationship Specialty Start Date End Date Vaughn Bradshaw MD PCP - General Family Medicine 05/18/18 08/26/23 Kasey Williamson DO 2 [facility] [place]. [address] [place] [address] PCP - General Family Medicine 09/14/23 Claudia Horn APRN [address] [place] [address] Advanced Practice Nurse 08/16/18 Vicenta Raymond DO ONE PROFESSIONAL [facility] [address] [place] [address] Consulting Physician Obstetrics & Gynecology 09/25/21 Gus Chowdary MD #2 [facility] [address] [place] [address] Consulting Physician Colon and Rectal Surgery 07/23/22 Virginie Reyes, RN [place] Nurse Pit Furnace Melter 09/14/23 09/14/23 Virginie Reyes, RN [place] Nurse Pit Furnace Melter 11/19/23 11/29/23 Virginie Reyes, RN [place] Nurse Pit Furnace Melter 12/07/23 05/15/24 Kellye Lopez APRN, FLIGHT DYNAMICIST #2 [facility] [address] [place] [address] Nurse Practitioner Advanced Practice Nurse 12/09/23 02/22/24 documented as of this encounter
--- OUTSIDE RECORDS SUMMARY | 2024-10-01 18:27 | XMS_ITS | Encounter Summary ---
Author Organization [facility] Address [address] [place] [address] Phone Care Team Providers Care Adjuster Electrical Contacts Name Role Phone Vaughn Bradshaw MD Primary Care Provider [phone] Claudia Horn STEEL POST INSTALLER Unavailable [phone] Vicenta Raymond DO Unavailable [phone] Gus Chowdary MD Unavailable Kasey Williamson DO Primary Care Provider [phone] Virginie Reyes RN Unavailable Unavailable Virginie Reyes RN Unavailable Unavailable Virginie Reyes RN Unavailable Unavailable Kelley Lopez STEEL POST INSTALLER, THEATRICAL AGENT Unavailable [phone] Reason for Visit * Reason Comments Medication Refill Encounter Details Date Type Department Care Team (Late st Contact Info) Description 05/06/2022 Refill [facility] #2 [place] [address] Vaughn Bradshaw MD #1 [place] [address] Medication Refill Social History Tobacco Use Types [...] Prerna Mann RN - 05/07/2022 8:28 AM SYSTEMS INTEGRATION ENGINEER Medication failed the protocol, provider to review [...] Ref Range Status 01/15/2022 >60 >=60 Final EMS INTEGRATION ENGINEER documented in this encounter Plan of Treatment Upcoming Encounters Date Type Department Care Team (Late st Contact Info) Description 10/19/2024 10:00 AM CDT Office Visit [facility] [place] [address] Kasey Williamson, DO [address] [address] 11/02/2024 10:20 AM CDT Office Visit [facility]2 [place] [address] Kasey Williamson, DO [address] [address] documented as of this encounter Visit Diagnoses [...] documented as of this encounter Care Teams Adjuster Electrical Contacts Relationship Specialty Start Date End Date Vaughn Bradshaw MD PCP - General Family Medicine 05/18/18 08/26/23 Kasey Williamson DO [facility] [address] [place] [address] PCP - General Family Medicine 09/14/23 Claudia Horn APRN [address] [place] [address] Advanced Practice Nurse 08/16/18 Vicenta Raymond DO ONE PROFESSIONAL [facility] [address] [place] [address] Consulting Physician Obstetrics & Gynecology 09/25/21 Gus Chowdary MD #2 [facility] [address] [place] [address] Consulting Physician Colon and Rectal Surgery 07/23/22 Virginie Reyes, RN [place] Nurse Library Information Technician 09/14/23 09/14/23 Virginie Reyes, RN [place] Nurse Library Information Technician 11/19/23 11/29/23 Virginie Reyes, RN [place] Nurse Library Information Technician 12/07/23 05/15/24 Kelley Lopez, STEEL POST INSTALLER, THEATRICAL AGENT #2 [facility] [address] [place] [address] Nurse Practitioner Advanced Practice Nurse 12/09/23 02/22/24 documented as of this encounter
--- OUTSIDE RECORDS SUMMARY | 2024-10-01 18:27 | XMS_ITS | Encounter Summary ---
Author Organization [facility] Address [address] [place] [address] Phone Care Team Providers Care Deposition Reporter Name Role Phone Vaughn Bradshaw MD Primary Care Provider [phone] Claudia Horn INSIDE PLANT SUPERVISOR Unavailable Vicenta Raymond DO Unavailable [phone] Gus Chowdary MD Unavailable Kasey Williamson DO Primary Care Provider Virginie Reyes RN Unavailable Unavailable Virginie Reyes RN Unavailable Unavailable Virginie Reyes RN Unavailable Unavailable Kelley Lopez INSIDE PLANT SUPERVISOR, TRUCK DRIVER SALESPERSON Unavailable [phone] Reason for Visit * Reason Comments Medication Refill Encounter Details Date Type Department Care Team (Late st Contact Info) Description 05/07/2022 Refill [facility] #2 [place] [id number] Vaughn Bradshaw MD #1 [place] [address] Medication Refill Social History Tobacco Use Types [...] reordered on 05/11/2022 by Vaughn Bradshaw MD. KING MACHINE SET UP OPERATOR TOOL * Telephone Encounter - Maria T Alejandre RN - 05/08/2022 7:52 AM CST duplicate KING MACHINE SET UP OPERATOR TOOL * Telephone Encounter - Maria T Alejandre RN - 05/08/2022 7:49 AM CST duplicate KING MACHINE SET UP OPERATOR TOOL documented in this encounter Plan of Treatment Upcoming Encounters Date Type Department Care Team (Late st Contact Info) Description 10/19/2024 10:00 AM CDT Office Visit [facility] - Family [facility] #2 [place] [address] Kasey Williamson DO 2 [facility] [address] [place] [address] 11/02/2024 10:20 AM CDT Office Visit [facility] - Family [facility] #[address] [place] [address] Kasey Williamson DO 2 [facility] [place] [address] documented as of this encounter Visit Diagnoses [...] documented as of this encounter Care Teams Deposition Reporter Relationship Specialty Start Date End Date Vaughn Bradshaw MD PCP - General Family Medicine 05/18/18 08/26/23 Kasey Williamson DO [address] [facility] [facility] [address] PCP - General Family Medicine 09/14/23 Claudia Horn APRN [address] [place] [address] Advanced Practice Nurse 08/16/18 Vicenta Raymond DO ONE PROFESSIONAL [place] [address] Consulting Physician Obstetrics & Gynecology 09/25/21 Gus Chowdary MD #2 [facility] [address] [place] [address] Consulting Physician Colon and Rectal Surgery 07/23/22 Virginie Reyes, RN [place] Nurse Raise Miner 09/14/23 09/14/23 Virginie Reyes RN [place] Nurse Raise Miner 11/19/23 11/29/23 Virginie Reyes, RN [place] Nurse Raise Miner 12/07/23 05/15/24 Kelley Lopez, INSIDE PLANT SUPERVISOR, TRUCK DRIVER SALESPERSON #[address] [facility], [address] [place] [address] Nurse Practitioner Advanced Practice Nurse 12/09/23 02/22/24 documented as of this encounter
--- OUTSIDE RECORDS SUMMARY | 2024-10-01 18:27 | XMS_ITS | Clinical Summary ---
Author Organization [facility] Address [address] [place] [address] Care Team Providers Care Pediatric Oncologist Name Role Phone Terence Dela Cruz MD [...] Screening with HPV 10/01/1993 Mammogram Screening 2003 Pneumococcal Vaccine: 50+ Ye ars (1 of 1 - PCV) 10/01/2013 Zoster Vaccines (1 of 2) 10/01/2013 COVID-19 [...] age to complete this topic Care Teams Pediatric Oncologist Relationship Specialty Start Date End Date Terence Dela Cruz MD PCP - General 12/15/13
--- OUTSIDE RECORDS SUMMARY | 2024-10-01 18:27 | XMS_ITS | Encounter Summary ---
Author Organization [facility] Address [address] [place] [address] Phone Care Team Providers Care Brick Siding Applicator Name Role Phone Vaughn Bradshaw MD Primary Care Provider [phone] Claudia Horn SPEARER Unavailable Vicenta Raymond DO Unavailable [phone] Gus Chowdary MD Unavailable Kasey Williamson DO Primary Care Provider [phone] Virginie Reyes RN Unavailable Unavailable Virginie Reyes RN Unavailable Unavailable Virginie Reyes RN Unavailable Unavailable Kelley Lopez SPEARER, CONTINUITY PERSON Unavailable [phone] Reason for Visit * Reason Comments Medication Refill Encounter Details Date Type Department Care Team (Late st Contact Info) Description 01/29/2022 Refill [facility] #2 [place] [address] Vaughn Bradshaw MD #1 [place] [address] Medication Refill Social History Tobacco Use Types [...] Prerna Mann RN - 01/29/2022 8:30 AM PORT CDL A DRIVER Medication failed the protocol, provider to review [...] with Buspirone for at least 6 months CDL A DRIVER documented in this encounter Plan of Treatment Upcoming Encounters Date Type Department Care Team (Late st Contact Info) Description 10/19/2024 10:00 AM CDT Office Visit [facility] #2 [place] [address] Kasey Williamson, 2 [facility] [address] [place] [address] 11/02/2024 10:20 AM CDT Office Visit [facility] #2 [place] [address] Kasey Williamson, [address] [address] documented as of this encounter Visit Diagnoses Diagnosis Anxiety and depression Dysthymic disorder documented in this encounter Additional Health Concerns Infection Onset Date Last Indicated Resolved Time COVID - 19 11/15/2023 11/15/2023 11/15/2023 11:4 7 PM CDT VRE 08/18/2024 08/18/2024 Assessment Noted Time PHQ-9 Depression Total Score: 0 11/05/19 22 9:00 AM CDT documented as of this encounter Care Teams Brick Siding Applicator Relationship Specialty Start Date End Date Vaughn Bradshaw MD PCP - General Family Medicine 05/18/18 08/26/23 Kasey Williamson DO 2 [facility] [address] [place] [address] PCP - General Family Medicine 09/14/23 Claudia Horn APRN [address] [place] [address] Advanced Practice Nurse 08/16/18 Vicenta Raymond DO ONE [address] [facility] [address] [place] [address] Consulting Physician Obstetrics & Gynecology 09/25/21 Gus Chowdary MD #[address] [address] Consulting Physician Colon and Rectal Surgery 07/23/22 Virginie Reyes, RN [place] Nurse Electrician Assistant 09/14/23 09/14/23 Virginie Reyes, RN [place] Nurse Electrician Assistant 11/19/23 11/29/23 Virginie Reyes, RN [place] Nurse Electrician Assistant 12/07/23 05/15/24 Kelley Lopez, SPEARER, CONTINUITY PERSON #2 [facility] [address] [place] [address] Nurse Practitioner Advanced Practice Nurse 12/09/23 02/22/24 documented as of this encounter
--- OUTSIDE RECORDS SUMMARY | 2024-10-01 18:27 | XMS_ITS | Encounter Summary ---
Author Organization [facility] Address [address] [place] [address] Phone Care Team Providers Care Electromechanical Equipment Tester Name Role Phone Vaughn Bradshaw MD Primary Care Provider [phone] Claudia Horn CAR SANDER Unavailable [phone] Vicenta Raymond DO Unavailable [phone] Gus Chowdary MD Unavailable Kasey Williamson DO Primary Care Provider [phone] Virginie Reyes RN Unavailable Unavailable Virginie Reyes RN Unavailable Unavailable Virginie Reyes RN Unavailable Unavailable Kelley Lopez CAR SANDER, DIE CASTING SUPERVISOR Unavailable [phone] Reason for Visit * Reason Comments Medication Refill Encounter Details Date Type Department Care Team (Late st Contact Info) Description 03/03/2022 Refill [facility] #2 [place] [address] Vaughn Bradshaw MD #1 [place] [address] Medication Refill Social History Tobacco Use Types [...] Coronavirus/COVID-19? No / Unsure 02/02/2022 11:51 AM VACUUM FORM OPERATOR documented as of this encounter Miscellaneous [...] [place] 11/04/21 Office Visit Vaughn Bradshaw MD [facility] Kaden Showing recent visits within past 182 [...] Ref Range Status 01/15/2022 >60 >=60 Final UM FORM OPERATOR documented in this encounter Plan of Treatment Upcoming Encounters Date Type Department Care Team (Late st Contact Info) Description 10/19/2024 10:00 AM CDT Office Visit [facility] #2 [place] [address] Kasey Williamson, DO [address] [address] 11/02/2024 10:20 AM CDT Office Visit [facility] #2 [place] [address] Kasey Williamson, [address] [address] documented as of this encounter Visit Diagnoses [...] documented as of this encounter Care Teams Electromechanical Equipment Tester Relationship Specialty Start Date End Date Vaughn Bradshaw MD PCP - General Family Medicine 05/18/18 08/26/23 Kasey Williamson DO 2 [facility] [address] [place] [address] PCP - General Family Medicine 09/14/23 Claudia Horn CAR SANDER [address] [place] [address] Advanced Practice Nurse 08/16/18 Vicenta Raymond DO ONE PROFESSIONAL [facility] [address] [place] [address] Consulting Physician Obstetrics & Gynecology 09/25/21 Gus Chowdary MD #2 [facility] [address] [place] [address] Consulting Physician Colon and Rectal Surgery 07/23/22 Virginie Reyes, RN [place] Nurse Fire Protection Inspector 09/14/23 09/14/23 Virginie Reyes, RN [place] Nurse Fire Protection Inspector 11/19/23 11/29/23 Virginie Reyes, RN [place] Nurse Fire Protection Inspector 12/07/23 05/15/24 Kelley Lopez, CAR SANDER, DIE CASTING SUPERVISOR #2 [facility] [address] [place] [address] Nurse Practitioner Advanced Practice Nurse 12/09/23 02/22/24 documented as of this encounter
--- OUTSIDE RECORDS SUMMARY | 2024-10-01 18:27 | XMS_ITS | Encounter Summary ---
Author Organization [facility] Address [address] [place] [address] Phone Care Team Providers Care Manager Cath Lab Name Role Phone Vaughn Bradshaw MD Primary Care Provider [phone] Claudia Horn MARINE ENGINE MACHINIST APPRENTICE Unavailable Vicenta Raymond DO Unavailable [phone] Gus Chowdary MD Unavailable Kasey Williamson DO Primary Care Provider [phone] Virginie Reyes RN Unavailable Unavailable Virginie Reyes RN Unavailable Unavailable Virginie Reyes RN Unavailable Unavailable Kelley Lopez MARINE ENGINE MACHINIST APPRENTICE, COMMAND POST CRAFTSMAN Unavailable [phone] Reason for Visit * Reason Comments Medication Refill Encounter Details Date Type Department Care Team (Late st Contact Info) Description 05/05/2022 Refill [facility] #2 [place] [address] Vaughn Bradshaw MD #1 [place] [address] Medication Refill Social History Tobacco Use Types [...] 90 days and meeting all other requirements H CARE PROFESSIONAL documented in this encounter Plan of Treatment Upcoming Encounters Date Type Department Care Team (Late st Contact Info) Description 10/19/2024 10:00 AM CDT Office Visit [facility] #2 [place] [address] Kasey Williamson, 2 [facility] [address] [place] [address] 11/02/2024 10:20 AM CDT Office Visit [facility] #2 [facility] [place] [address] Kasey Williamson, 2 [facility] [address] [address] documented as of this encounter Visit Diagnoses [...] as of this encounter Care Teams Manager Cath Lab Relationship Specialty Start Date End Date Vaughn Bradshaw MD PCP - General Family Medicine 05/18/18 08/26/23 Kasey Williamson DO 2 [facility] [address] [place] [address] PCP - General Family Medicine 09/14/23 Claudia Horn APRN [address] [place] [address] Advanced Practice Nurse 08/16/18 Vicenta Raymond DO [address] [place] [address] [place] [address] Consulting Physician Obstetrics & Gynecology 09/25/21 Gus Chowdary MD #[address] [facility] [address] [place] [address] Consulting Physician Colon and Rectal Surgery 07/23/22 Virginie Reyes, RN [place] Nurse Grinder Set Up Operator Jig 09/14/23 09/14/23 Virginie Reyes, RN [place] Nurse Grinder Set Up Operator Jig 11/19/23 11/29/23 Virginie Reyes, RN [place] Nurse Grinder Set Up Operator Jig 12/07/23 05/15/24 Kelley Lopez, MARINE ENGINE MACHINIST APPRENTICE, COMMAND POST CRAFTSMAN #2 [facility] [address] [place] [address] Nurse Practitioner Advanced Practice Nurse 12/09/23 02/22/24 documented as of this encounter
--- NOTE | 2024-10-01 18:40 | ED.GENADULT ---
HPI - General Adult General Chief complaint: Urogenital-Female Stated complaint: poss UTI Time Seen by Provider: 10/01/24 18:40 Source: patient Mode of arrival: ambulatory Limitations: no limitations History of Present Illness HPI narrative: 59 year old female patient presents to the [facility] with complaints of low back pain specifically on the right side that started 4 days ago. Patient's states she suspects she might have a UTI. Patient denies any pain with urination, urgency or frequency. Denies fevers body aches or chills. Patient states that she does have issues with her kidneys and liver and will need to have a transplant for her kidneys liver. Patient is type 2 diabetic and states her sugars have been running up in the 400s recently. Related Data Home Medications ?Medication ?Instructions ?Recorded ?Confirmed ?Last Taken ?Type albuterol sulfate 90 mcg/actuation inhalation 06/27/24 Unknown History aerosol inhaler azelastine 137 mcg (0.1 %) nasal intranasal 06/27/24 Unknown History spray buspirone 7.5 mg tablet mg 06/27/24 Unknown History cetirizine 10 mg tablet mg 06/27/24 Unknown History famotidine 20 mg tablet mg 06/27/24 Unknown History fluticasone propionate 50 intranasal 06/27/24 Unknown History mcg/actuation nasal spray,suspension furosemide 20 mg tablet mg 06/27/24 Unknown History insulin glargine 100 unit/mL (3 unit subcut 06/27/24 Unknown History mL) subcutaneous pen (Lantus Solostar U-100 Insulin) lactulose 10 gram/15 mL oral 06/27/24 Unknown History solution levothyroxine 50 mcg tablet mcg 06/27/24 Unknown History melatonin 5 mg tablet mg 06/27/24 Unknown History metformin 1,000 mg tablet mg 06/27/24 Unknown History nadolol 20 mg tablet mg 06/27/24 Unknown History pantoprazole 40 mg tablet,delayed mg PO 06/27/24 Unknown History release pramipexole 0.5 mg tablet mg 06/27/24 Unknown History rifaximin 550 mg tablet (Xifaxan) mg 06/27/24 Unknown History semaglutide 0.25 mg or 0.5 mg (2 mg subcut 06/27/24 Unknown History mg/3 mL) subcutaneous pen injector (Ozempic) epinephrine 0.3 mg/0.3 mL 10/01/24 Unknown History injection, auto-injector Allergies Allergy/AdvReac Type Severity Reaction Status Date / Time hydrocodone Allergy Unknown Verified 04/15/20 09:00 tramadol Allergy Unknown Verified 04/15/20 09:00 Review of Systems Review of Systems: CONSTITUTIONAL: Denies fever, chills, or sweats. EYES: Denies visual changes, redness, or discharge. ENT: Denies rhinorrhea, congestion, sore throat, or otalgia. CARDIOVASCULAR: Denies chest pain, palpitations, or edema. RESPIRATORY: Denies cough or dyspnea. GASTROINTESTINAL: Denies abdominal pain, nausea, vomiting, or diarrhea. GENITOURINARY: Denies dysuria or hematuria. SKIN: Denies rash or itching. MUSCULOSKELETAL: Positive right-sided low back pain, denies joint pain, or myalgia. NEUROLOGIC: Denies headache, numbness, or weakness. PSYCHIATRIC: Denies anxiety or depression. [facility] Past Medical History Medical History (Updated 10/01/24 @ 19:42 by CHRIST Navarrete) Vitamin D deficiency Type 2 diabetes mellitus Thrombocytopenia Steatohepatitis Splenomegaly Restless legs syndrome Psoriasis Mixed hyperlipidemia Microcytic anemia Major depressive disorder, single episode, unspecified Lymphadenopathy Liver, cirrhosis, portal Hypomagnesemia Hyperuricemia Hyperlipidemia Hematuria Gallstones Family history of CT (myocardial infarction) Exocrine pancreatic insufficiency Essential (primary) hypertension Elevated liver enzymes Acute cystitis without hematuria Actinic keratosis (03/11/15) Family History Family History Mother Hypertension Grandparent Diabetes mellitus Sibling Family history of thyroid disease Other Asthma Cerebrovascular accident Depression Family history of arthritis Family history of heart disease in male family member before age 55 Social History Social History Smoking status: Never smoker Second hand tobacco smoke exposure: Yes Alcohol intake: current Comments at the time of my signature I agree with nursing past medical history, surgical, social, and family history. There is no relevant family history pertinent to the presenting complaint. Exam Narrative: GENERAL: Well-appearing, well-nourished, and in no acute distress. HEAD: Normocephalic, atraumatic. EYES: PERRLA and EOMI. ENT: Nares clear, no rhinorrhea or epistaxis. Mucous membranes moist. NECK: Supple. No lymphadenopathy CHEST: Clear to auscultation. No respiratory distress. HEART: Regular rate and rhythm. No murmur heard. Normal peripheral pulses. ABDOMEN: Soft, nontender, nondistended, normal active bowel sounds. right-sided CVA tenderness on percussion EXTREMITIES: Normal range of motion. No edema. SKIN: Warm, dry, no rash. NEURO: No focal deficits. Alert and oriented x3. Course Course Level of Care: Express Care Visit Reevaluation(s) Reevaluation #1: Notify patient and see any obvious kidney stones there were some notable fully by in the bladder of the x-ray. We have not received the official report but she can call up to the clinic tomorrow morning to get the official report. Discussed with patient we are going to provide her a wait and see prescription of an antibiotic for her symptoms. Discussed with patient highly recommend to drink lots of water to see if she can flush out the kidneys and bladder but if her symptoms persist or she does start spiking fever she can go ahead and take the antibiotic. Discussed with patient she needs to call her doctor tomorrow and discuss that she does have some glucose in her urine and her sugars are high. Patient verbalized understanding denies any other questions or concerns at this time. Date: 10/01/24 Time: 19:44 Vital Signs Vital signs: Vital Signs Temperature 36.6 C 10/01/24 18:26 Pulse Rate 72 10/01/24 18:26 Respiratory Rate 20 10/01/24 18:26 Blood Pressure 138/72 10/01/24 18:26 Pulse Oximetry 100 10/01/24 18:26 Oxygen Delivery Room Air 10/01/24 18:26 Temperature 36.6 C 10/01/24 18:26 Pulse Rate 72 10/01/24 18:26 Respiratory Rate 20 10/01/24 18:26 Blood Pressure 138/72 10/01/24 18:26 Pulse Oximetry 100 10/01/24 18:26 Oxygen Delivery Room Air 10/01/24 18:26 vital signs reviewed. Medical Decision Making MDM Narrative Medical decision making narrative: discussed with patient that her urine dip is not indicative of a UTI as well as her symptoms do not seem to quite match UTI concerns. Discussed with patient that there is a large amount of glucose in her urine and it is concerning that her sugars have been elevated for a long period of time. Discussed with patient I would like to do a KUB to see if we see any obvious kidney stones however since there is no presence in the of blood in the urine I think that the risk of this is low. Discussed with patient that I highly recommend that she follows up with her primary doctor and kidney doctor especially with this low back pain we will send the urine off for culture. I may discharge her home with a wait and see antibiotic prescription and if her symptoms worsen she can start these prescription. Differential Diagnosis Differential Diagnosis: Differential diagnosis: Uncomplicated lower UTI, uncomplicated UTI, pyelonephritis , kidney stones Vital Signs Vital Signs: Vital Signs Temperature 36.6 C 10/01/24 18:26 Pulse Rate 72 10/01/24 18:26 Respiratory Rate 20 10/01/24 18:26 Blood Pressure 138/72 10/01/24 18:26 Pulse Oximetry 100 10/01/24 18:26 Oxygen Delivery Room Air 10/01/24 18:26 Temperature 36.6 C 10/01/24 18:26 Pulse Rate 72 10/01/24 18:26 Respiratory Rate 20 10/01/24 18:26 Blood Pressure 138/72 10/01/24 18:26 Pulse Oximetry 100 10/01/24 18:26 Oxygen Delivery Room Air 10/01/24 18:26 Lab Data Labs: Lab Results 10/01/24 Range/Units 18:40 POC Urine Color Light/pale POC Urine Clarity Clear POC Urine pH 6.0 POC Ur Specif [place] 1.015 POC Urine Protein Negative (Negative) POC Ur Glucose (UA) 2+ (Negative) POC Urine Ketones Negative (Negative) POC Urine Blood Negative (Negative) POC Urine Nitrite Negative (Negative) POC Urine Bilirubin Negative (Negative) POC Urine Urobilinogen 0.2 POC U Leukocyte Esteras Trace (Negative) Critical Care Time Critical Care Time Critical Care Time: No Discharge Plan Discharge Clinical Impression: Acute right flank pain, Glucose found in urine on examination Patient Disposition: Home Condition: Stable Instructions: Antibiotic Form, Dysuria (ED) Additional Instructions: We will send a urine culture off to the lab; if the culture identifies an organism you will receive a phone call from an urgent care staff member and an appropriate antibiotic will be prescribed. you will be provided a wait and see prescription. Please wait about 2-3 days but if symptoms persist or get worse please start the antibiotic. -Also recommend: drink more fluid. It might help flush out germs, and it does no harm -Tylenol/ibuprofen prn for pain or fever -Follow-up with your primary care provider for urine recheck or seek ER visit if condition worsens with high fever, nausea, vomiting and severe back pain. Patient Language: Kenyan Prescriptions: New sulfamethoxazole-trimethoprim [Bactrim DS] 800-160 mg tablet 1 tablet PO Q12H 5 Days Qty: 10 0RF No Action epinephrine 0.3 mg/0.3 mL auto-injector cetirizine 10 mg tablet pramipexole 0.5 mg tablet nadolol 20 mg tablet famotidine 20 mg tablet levothyroxine 50 mcg tablet pantoprazole 40 mg tablet,delayed release (DR/EC) PO metformin 1,000 mg tablet buspirone 7.5 mg tablet furosemide 20 mg tablet azelastine 137 mcg (0.1 %) spray,non-aerosol INTRANASAL albuterol sulfate 90 mcg/actuation HFA aerosol inhaler INHALATION fluticasone propionate 50 mcg/actuation spray,suspension INTRANASAL lactulose 10 gram/15 mL solution insulin glargine [Lantus Solostar U-100 Insulin] 100 unit/mL (3 mL) insulin pen SUBCUT melatonin 5 mg tablet Xifaxan 550 mg tablet Ozempic 0.25 mg or 0.5 mg (2 mg/3 mL) pen injector SUBCUT Follow-up/Referrals: Clay,Kasey Mcgregor DO [Primary Care Provider] - Time of Disposition: 19:43
[2024-10-01 18:43] LABS: EDUAAPPEAR Clear; EDUABILI Negative (Negative); EDUABLOOD Negative (Negative); EDUACOLOR1 Light/Pale; EDUAGLUCOSE 2+ (Negative); EDUAKETONE Negative (Negative); EDUALEUKO Trace (Negative); EDUANITRATE Negative (Negative); EDUAPH 6.0; EDUAPROTEIN Negative (Negative); EDUASPGRAVITY 1.015; EDUAUROBILI 0.2
== END 2024-10-01 19:46 | disposition home or self-care (01) ==
PROVIDERS: Emergency Provider Nurse Practitioner Family; PCP Student in an Organized Health Care Education/Training Program
DX: R10.9 Unspecified abdominal pain (principal); R81 Glycosuria; E11.9 Type 2 diabetes mellitus without complications; Z79.4 Long term (current) use of insulin; Z79.84 Long term (current) use of oral hypoglycemic drugs; Z79.85 Long-term (current) use of injectable non-insulin antidiabetic drugs; G25.81 Restless legs syndrome; E78.2 Mixed hyperlipidemia; K74.69 Other cirrhosis of liver; I10 Essential (primary) hypertension
CPT/HCPCS: 74018; 81003; 87086; 99213; G0463

== ENCOUNTER 2025-01-05 17:17 | Emergency (ER) | payer MEDICARE, MEDICAID, SELFPAY ==
--- OUTSIDE RECORDS SUMMARY | 2025-01-03 07:30 | XMS_ITS | Encounter Summary ---
Author Organization [facility] Address [address] [place] [address] Phone Care Team Providers Care Marble Polisher Hand Name Role Phone Claudia Horn FRANCES Unavailable Vicenta Raymond DO Unavailable [phone] Gus Chowdary MD Unavailable Kasey Williamson DO Primary Care Provider [phone] Reason for Referral * Radiology Services (Routine) - Closed Specialty Diagnoses / Procedures Referred By Contac t Referred To Contact Radiology Diagnoses 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 Procedures US ABDOMEN LIMITED LEVEL 3 THREE ORGAN Jorge Tran MD [address] [place] [address] Phone: tel: fax: Referral ID Status Reason Start Date Expiration Date Visits Re quested Visits Authorized [id number] Closed 12/20/2024 1 1 Reason for Visit * Radiology Services (Routine) - Closed Specialty Diagnoses / Procedures Referred By Contac t Referred To Contact Radiology Diagnoses 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 Procedures US ABDOMEN LIMITED LEVEL 3 THREE ORGAN Jorge Tran MD [address] [place] [address] Phone: tel: fax: Referral ID Status Reason Start Date Expiration Date Visits Re quested Visits Authorized [id number] Closed 12/20/2024 1 1 Encounter Details Date Type Department Care Team (Latest Contact Info) Description 01/03/2025 7:30 AM CDT - 01/03/2025 11:59 PM CDT Hospital Encounter [facility] Ultrasound [address] [place] [address] Jorge Tran MD [address] [place] [address] Discharge Disposition: Discharged to home or Selfcare Social History Tobacco Use Types Packs/Day Years Used Date Smoking Tobacco: Never Smokeless Tobacco: Never Alcohol Use Standard Drinks/Week Comments No 0 (1 standard drink = 0.6 oz pur e alcohol) [facility] Utilities Answer Date Recorded In the past 12 months has [employer], gas, oil, or water [email or web address] threatened to shut off services in your [...] week 08/18/2024 How often do you attend [facility] or protestant services? Never 08/18/2024 Do you belong to any clubs o r organizations such as anabaptist groups, unions, fraternal or athletic groups, or [...] Recorded Total Score - Questions 1-9 0 11/22 [facility] - Occupational Stress Questionnaire Answer Date Recorded [...] place to sleep or slept in a long term (including now)? No 08/04/2023 Housing Stability Vital [...] in the past 12 m [facility], were you homeless or living in a long term (including now)? No 08/18/2024 Education Answer Date [...] on file documented as of this encounter Medications at Time of Discharge albuterol 108 (90 Base) MCG/ACT Aerosol Solution take 2 Puffs by inhalation every 4 hours as needed for Wheezing or Cough. 54 g 1 5 Alcohol Swabs PadsIndications:Typ e 2 diabetes mellitus with hyperglycemia, with long-term current use of insulin Use one swab with each injection 100 Swab . 3 5 allopurinol (ZYLOPRIM) 300 MG Tablet Take 1 Tablet by mouth daily. 90 Tablet 1 5 azelastine (ASTELIN) 0.1 % SolutionIndications :Subacute maxillary sinusitis 2 Sprays by Nasal route 2 times daily. Use in each nostril as directed 30 mL 2 5 azelastine (OPTIVAR) 0.05 % Solution INSTILL 1 DROP INTO BOTH EYES TWICE DAILY 18 mL 3 Blood Glucose Monitoring Suppl (Accu-Chek Silvana Plus) w/Device Kit Use daily as directed. DX E11.9 1 Kit 5 busPIRone HCl 7.5 MG TabletIndications:A nxiety and depression Take 1 Tablet by mouth 2 times daily. 180 Tablet 1 5 carvedilol (COREG) 3.125 MG Tablet Take 3.125 mg by mouth 2 times daily. 5 11/29/19 26 cetirizine (ZyrTEC) 10 MG Tablet TAKE 1 TABLET BY MOUTH DAILY 30 Tablet 11 5 10/17/19 26 clotrimazole-betame thasone (LOTRISONE) 1-0.05 % Lotion APPLY TOPICALLY TO THE AFFECTED AREA TWICE DAILY NEEDED FOR RASH 3 cyanocobalamin 1000 MCG Tablet Take 1 Tablet by mouth daily. 90 Tablet 1 5 dicyclomine (BENTYL) 20 MG Tablet Take 1 Tablet by mouth 2 times daily. 120 Tablet 1 5 EPINEPHrine (EpiPen 2-Harshil) 0.3 MG/0.3ML Solution Auto-injector 0.3 mL by Intramuscular route once as needed for Anaphylaxis. 1 mL 3 4 ergocalciferol (VITAMIN D) 44375 UNIT Capsule Take 1 Capsule by mouth once a week. 12 Capsule 5 fenofibrate micronized (LOFIBRA) 200 MG Capsule Take 1 Capsule by mouth daily. 90 Capsule 1 5 ferrous sulfate 325 (65 Fe) MG TabletIndications:P ancytopenia Take 1 Tablet by mouth daily. 30 Tablet 5 1 fexofenadine (Anabelle Allergy) 180 MG TabletIndications:S ubacute maxillary sinusitis Take 1 Tablet by mouth daily. 90 Tablet 3 4 fluticasone (FLONASE) 50 MCG/ACT SuspensionIndicatio ns:Seasonal allergies 1-2 Sprays by Nasal route daily. Use in each nostril as directed. 16 g 8 5 furosemide (LASIX) 40 MG Tablet Take 1 Tablet by mouth daily. 90 Tablet 1 5 Glucose Blood (Accu-Chek Guide Test) Strip Test 4-5 times per day 500 Strip 3 5 HumaLOG KwikPen 100 UNIT/ML Solution Pen-injectorIndicat ions:Type 2 diabetes mellitus with hyperglycemia, with long-term current use of insulin INJECT UNDER THE SKIN PER SLIDING SCALE THREE TIMES DAILY WITH MEALS. MAX DAILY DOSE OF 30 UNITS 15 mL 5 insulin glargine (Lantus) 100 UNIT/ML Solution 25 Units by Subcutaneous route every morning. Insulin Pen Needle (Sure Comfort Pen [place]) 31G X 8 MM MiscIndications:Typ e 2 diabetes mellitus with hyperglycemia, with long-term current use of insulin USE FOUR TIMES DAILY DIRECTED 200 Pen Needle 3 5 lactulose (CHRONULAC) 10 GM/15ML SolutionIndications :Hepatic Encephalopathy Take 30 mL by mouth 3 times daily. Indications: Impaired Brain Function due to Liver Disease 300 mL 5 Lancet Devices (Lancet Device with Ejector) [facility] Lancet pen to be used with lancets. 1 Each 5 Lancets MiscIndications:Typ e 2 diabetes mellitus with hyperglycemia, with long-term current use of insulin TEST BLOOD SUGAR FOUR TO FIVES TIMES DAILY 500 Lancet . 3 5 levothyroxine (SYNTHROID) 50 MCG Tablet Take 1 Tablet by mouth daily. 90 Tablet 1 5 Melatonin 5 MG TabletIndications:I nsomnia, unspecified type TAKE 1 TABLET BY MOUTH EVERY NIGHT 30 Tablet 4 montelukast (SINGULAIR) 10 MG Tablet Take 1 Tablet by mouth every evening. 90 Tablet 1 5 [place]-3 Fatty Acids (OMEGA 3 PO) Take by mouth in the morning and at bedtime. ondansetron (ZOFRAN-ODT) 4 MG TABLET DISPERSIBLE Take 1 Tablet by mouth every 6 hours as needed for Nausea - 1st line. 10 Tablet 5 pramipexole (MIRAPEX) 0.5 MG TabletIndications:R estless leg syndrome Take 1 Tablet by mouth nightly. 45 Tablet 1 5 semaglutide, 1 MG/DOSE, (OZEMPIC) 2 MG/1.5ML Solution Pen-injector 1 mg by Subcutaneous route once a week. 5 simvastatin (ZOCOR) 40 MG Tablet Take 0.5 Tablets by mouth daily. 90 Tablet 1 5 Ubrelvy 50 MG TabletIndications:C hronic migraine without aura without status migrainosus, not intractable TAKE 1 TABLET BY MOUTH AT ONSET OF HEADACHE. MAY REPEAT DOSE IN 2 HOURS IF NO RELIEF. MAX OF 2 TABLETS IN 24 HOURS 30 Tablet 5 Xifaxan 550 MG Tablet Take 550 mg by mouth 2 times daily. 5 documented as of this encounter Plan of Treatment Upcoming Encounters Date Type Department Care Team (Late st Contact Info) Description 01/10/2025 8:45 AM CDT [facility] [address], [address] [place] [id number] Monae Jorgensen, WIRE SPLICER, DRAWING TRACER [address] [facility] [address] [place] [address] Aishwarya Deluca, PT [place] Discharge Disposition: Discharged to home or Selfcare 01/19/2025 8:40 AM CDT Office Visit [facility] [address] [place] [address] Kasey Williamson, DO 2 [facility] [place] [address] documented as of this encounter Procedures Procedure Name Priority Date/Time Associated Diagnosis Comments US ABDOMEN LIMITED LEVEL 3 THREE ORGAN Routine 01/03/2025 8:02 AM CDT 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 documented in this encounter Results * US ABDOMEN LIMITED LEVEL 3 THREE ORGAN (01/03/2025 8:02 AM CDT) Anatomical Region Laterality Modality Abdomen N/A Ultrasound 01/03/2025 8:02 AM CDT Impressions 01/03/2025 7:04 PM CDT IMPRESSION: 1. Cirrhosis. No focal liver lesion is identified. Narrative 01/03/2025 7:04 PM CDT DICTATING PHYSICIAN: Ko Ford M.D. EXAM: US ABDOMEN LIMITED LEVEL 3 THREE ORGAN 01/03/2025 8:02 AM HISTORY: Cirrhosis. COMPARISON: None. FINDINGS: Pancreas: Poorly visualized due to bowel gas. Liver: Heterogeneous echotexture with surface nodularity compatible with cirrhosis. No hepatic lesions demonstrated. Gallbladder: Cholecystectomy. Extrahepatic bile duct: 0.5 cm. Nondilated. No intrahepatic bilary dilatation. Right kidney: 9.2 cm in length. Normal echogenicity and cortical thickness. No hydronephrosis. Procedure Note Ko Ford MD - 01/03/2025 DICTATING PHYSICIAN: Ko Ford M.D. EXAM: US ABDOMEN LIMITED LEVEL 3 THREE ORGAN 01/03/2025 8:02 AM HISTORY: Cirrhosis. COMPARISON: None. FINDINGS: Pancreas: Poorly visualized due to bowel gas. Liver: Heterogeneous echotexture with surface nodularity compatible withcirrhosis. No hepatic lesions demonstrated. Gallbladder: Cholecystectomy. Extrahepatic bile duct: 0.5 cm. Nondilated. No intrahepatic bilarydilatation. Right kidney: 9.2 cm in length. Normal echogenicity and corticalthickness. No hydronephrosis. IMPRESSION: 1. Cirrhosis. No focal liver lesion is identified. 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 [address] [place] [address] PCP - General Family Medicine 09/14/23 Claudia Horn APRN [address] [place] [address] Advanced Practice Nurse 08/16/18 Vicenta Raymond DO [facility] [address] [place] [address] Consulting Physician Obstetrics & Gynecology 09/25/21 Gus Chowdary MD #[address] [facility] [address] [address] Consulting Physician Colon and Rectal Surgery 07/23/22 documented as of this encounter
--- OUTSIDE RECORDS SUMMARY | 2025-01-05 17:20 | XMS_ITS | Encounter Summary ---
Author Organization [facility] Address [address] [place] [address] Phone Care Team Providers Care Packing Checker Name Role Phone Vaughn Bradshaw MD Primary Care Provider [phone] Claudia Horn PRECISION INSTRUMENT AND TOOL MAKER Unavailable [phone] Vicenta Raymond DO Unavailable [phone] Gus Chowdary MD Unavailable Kasey Williamson DO Primary Care Provider Virginie Reyes RN Unavailable Unavailable Virginie Reyes RN Unavailable Unavailable Virginie Reyes RN Unavailable Unavailable Kelley Lopez PRECISION INSTRUMENT AND TOOL MAKER, SCOWMAN Unavailable [phone] Virginie Reyes RN Unavailable Unavailable Reason for Visit * Reason Onset Date Comments Hip Pain 05/26/2022 Back pain Back Pain 05/26/2022 Shoulder Pain 05/26/2022 Encounter Details Date Type Department Care Team (Late st Contact Info) Description 05/26/2022 Nurse Triage [facility] [address] [place] [address] Vaughn Bradshaw MD #1 [place] [address] Hip Pain (Back pain/); Back Pain; Shoulder [...] Coronavirus/COVID-19? No / Unsure 05/26/2022 6:33 PM DOMESTIC TRAVEL CONSULTANT documented as of this encounter Miscellaneous Notes [...] Dept Phone 05/27/2022 9:45 AM Vivian Tucker [facility] [phone] 06/09/2022 5:45 PM Vaughn Bradshaw [facility] [phone] STIC TRAVEL CONSULTANT documented in this encounter Plan of Treatment Upcoming Encounters Date Type Department Care Team (Late st Contact Info) Description 01/10/2025 8:45 AM CDT Physical Therapy [facility] at [facility] 200 [facility], [facility] [address] [place] [address] Monae Jorgensen, PRECISION INSTRUMENT AND TOOL MAKER, SCOWMAN #[address] [facility] [address] [place] [address] Aishwarya Deluca, PT [place] Discharge Disposition: Discharged to home or Selfcare 01/19/2025 8:40 AM CDT Office Visit [facility] #2 [place] [address] Kasey Williamson, DO 2 [facility]. [address] [place] [address] documented as of this encounter Visit Diagnoses Not on filedocumented in this encounter Additional Health Concerns Infection Onset Date Last Indicated Resolved Time COVID - 19 11/15/2023 11/15/2023 11/15/2023 11:4 7 PM CDT VRE 08/18/2024 08/18/2024 Assessment Noted Time PHQ-9 Depression Total Score: 0 11/05/19 22 9:00 AM CDT documented as of this encounter Care Teams Packing Checker Relationship Specialty Start Date End Date Vaughn Bradshaw MD PCP - General Family Medicine 05/18/18 08/26/23 Kasye Williamson DO [facility] [address] [place] [address] PCP - General Family Medicine 09/14/23 Claudia Horn APRN [address] [place] [address] Advanced Practice Nurse 08/16/18 Vicenta Raymond DO ONE PROFESSIONAL [facility] [address] [place] [address] Consulting Physician Obstetrics & Gynecology 09/25/21 Gus Chowdary MD #[address] [facility] [address] [place] [address] Consulting Physician Colon and Rectal Surgery 07/23/22 Virginie Reyes RN [place] Nurse Milk Truck Driver 09/14/23 09/14/23 Virginie Reyes, RN [place] Nurse Milk Truck Driver 11/19/23 11/29/23 Virginie Reyes, RN [place] Nurse Milk Truck Driver 12/07/23 05/15/24 Kelley Lopez APRN, SCOWMAN #2 [facility], [facility] [address] [place] [address] Nurse Practitioner Advanced Practice Nurse 12/09/23 02/22/24 Virginie Reyes RN [place] Nurse Milk Truck Driver 11/16/24 11/16/24 documented as of this encounter
--- OUTSIDE RECORDS SUMMARY | 2025-01-05 17:20 | XMS_ITS | Encounter Summary ---
Author Organization [facility] Address [address] [place] [address] Phone Care Team Providers Care Economic Specialist Name Role Phone Vaughn Bradshaw MD Primary Care Provider [phone] Claudia Horn SIGNAL FITTER Unavailable Vicenta Raymond DO Unavailable Gus Chowdary MD Unavailable Kasey Williamson DO Primary Care Provider [phone] Virginie Reyes RN Unavailable Unavailable Virginie Reyes RN Unavailable Unavailable Virginie Reyes RN Unavailable Unavailable Kelley Lopez SIGNAL FITTER, UROLOGY PHYSICIAN ASSISTANT Unavailable [phone] Virginie Reyes RN Unavailable Unavailable Reason for Visit * Reason Comments Medication Refill Encounter Details Date Type Department Care Team (Late st Contact Info) Description 03/19/2022 Refill [facility] #2 [place] [address] Vaughn Bradshaw MD #1 [place] [address] Medication Refill Social History Tobacco Use Types [...] Prerna Mann RN - 03/19/2022 8:51 AM TEXTILE ENGRAVER Medication discontinued-dose adjustment. ILE ENGRAVER documented in this encounter Plan of Treatment Upcoming Encounters Date Type Department Care Team (Late st Contact Info) Description 01/10/2025 8:45 AM CDT Physical [facility] 200 [facility], [place] [address] [place] [address] Monae Jorgensen, SIGNAL FITTER, UROLOGY PHYSICIAN ASSISTANT #2 [facility] [address] [place] [address] Aishwarya Deluca, PT [place] Discharge Disposition: Discharged to home or Selfcare 01/19/2025 8:40 AM CDT Office Visit [facility] - [facility] - [place] [address]2 [place] [address] Kasey Williamson, DO 2 [facility] [address] [place] [address] documented as of this encounter Visit Diagnoses Diagnosis Anxiety and depression Dysthymic disorder documented in this encounter Additional Health Concerns Infection Onset Date Last Indicated Resolved Time COVID - 19 11/15/2023 11/15/2023 11/15/2023 11:4 7 PM CDT VRE 08/18/2024 08/18/2024 Assessment Noted Time PHQ-9 Depression Total Score: 0 11/05/19 22 9:00 AM CDT documented as of this encounter Care Teams Economic Specialist Relationship Specialty Start Date End Date Vaughn Brasdhaw MD PCP - General Family Medicine 05/18/18 08/26/23 Kasey Williamson DO 2 [facility] [address] [place] [address] PCP - General Family Medicine 09/14/23 Claudia Horn APRN [address] [place] [address] Advanced Practice Nurse 08/16/18 Vicenta Raymond DO ONE PROFESSIONAL [address] [address] Consulting Physician Obstetrics & Gynecology 09/25/21 Gus Chowdary MD #2 [facility] [address] [place] [address] Consulting Physician Colon and Rectal Surgery 07/23/22 Virginie Reyes, RN [place] Nurse Paralegal Internship 09/14/23 09/14/23 Virginie Reyes, RN [place] Nurse Paralegal Internship 11/19/23 11/29/23 Virginie Reyes, RN [place] Nurse Paralegal Internship 12/07/23 05/15/24 Kelley Lopez APRN, UROLOGY PHYSICIAN ASSISTANT #2 [facility] [address] [place] [address] Nurse Practitioner Advanced Practice Nurse 12/09/23 02/22/24 Virginie Reyes, RN [place] Nurse Paralegal Internship 11/16/24 11/16/24 documented as of this encounter
--- OUTSIDE RECORDS SUMMARY | 2025-01-05 17:20 | XMS_ITS | Encounter Summary ---
Author Organization [facility] Address [address] [place] [address] Phone Care Team Providers Care Business Services Specialist Sales Name Role Phone Vaughn Bradshaw MD Primary Care Provider [phone] Claudia Horn COMPUTER EDUCATION TEACHER Unavailable Vicenta Raymond DO Unavailable Gus Chowdary MD Unavailable Kasey Williamson DO Primary Care Provider [phone] Virginie Reyes RN Unavailable Unavailable Virginie Reyes RN Unavailable Unavailable Virginie Reyes RN Unavailable Unavailable Kelley Lopez COMPUTER EDUCATION TEACHER, ENVIRONMENTAL PLANNER Unavailable [phone] Virginie Reyes RN Unavailable Unavailable Reason for Visit * Reason Comments Medication Refill Encounter Details Date Type Department Care Team (Late st Contact Info) Description 04/04/2022 Refill [facility] #2 [place] [address] Vaughn Bradshaw MD #1 [place] [address] Medication Refill Social History Tobacco Use Types [...] Prerna Mann RN - 04/06/2022 8:34 AM MANAGER OF ENGINEERING Medication filled 04/04/2022 GER OF ENGINEERING documented in this encounter Plan of Treatment Upcoming Encounters Date Type Department Care Team (Late st Contact Info) Description 01/10/2025 8:45 AM CDT [facility] 200 [facility], [facility] [address] [place] [address] Monae Jorgensen, COMPUTER EDUCATION TEACHER, ENVIRONMENTAL PLANNER #[address] [address] Aishwarya Deluca, PT [place] Discharge Disposition: Discharged to home or Selfcare 01/19/2025 8:40 AM CDT Office Visit [facility] - [facility] - [place] #2 [place] [address] Kasey Williamson, DO 2 [facility] [address] [place] [address] documented as of this encounter Visit Diagnoses Not on filedocumented in this encounter Additional Health Concerns Infection Onset Date Last Indicated Resolved Time COVID - 19 11/15/2023 11/15/2023 11/15/2023 11:4 7 PM CDT VRE 08/18/2024 08/18/2024 Assessment Noted Time PHQ-9 Depression Total Score: 0 11/05/19 9:00 AM CDT documented as of this encounter Care Teams Business Services Specialist Sales Relationship Specialty Start Date End Date Vaughn Bradshaw MD PCP - General Family Medicine 05/18/18 08/26/23 Kasey Williamson DO 2 [facility] [address] [place] [address] PCP - General Family Medicine 09/14/23 Claudia Horn APRN [address] [place] [address] Advanced Practice Nurse 08/16/18 Vicenta Raymond DO ONE PROFESSIONAL [address] [address] Consulting Physician Obstetrics & Gynecology 09/25/21 Gus Chowdary MD #2 [facility] [address] [place] [address] Consulting Physician Colon and Rectal Surgery 07/23/22 Virginie Reyes, RN [place] Nurse Music Department Chair 09/14/23 09/14/23 Virginie Reyes, RN [place] Nurse Music Department Chair 11/19/23 11/29/23 Virginie Reyes, RN [place] Nurse Music Department Chair 12/07/23 05/15/24 Kelley Lopez APRN, ENVIRONMENTAL PLANNER #2 [facility], [address] [place] [address] Nurse Practitioner Advanced Practice Nurse 12/09/23 02/22/24 Virginie Reyes, RN [place] Nurse Music Department Chair 11/16/24 11/16/24 documented as of this encounter
--- OUTSIDE RECORDS SUMMARY | 2025-01-05 17:20 | XMS_ITS | Encounter Summary ---
Author Organization [facility] Address [address] [place] [address] Phone Care Team Providers Care Stock Sorter Name Role Phone Vaughn Bradshaw MD Primary Care Provider [phone] Claudia Horn HIGH SCHOOL MUSIC TEACHER Unavailable [phone] Vicenta Raymond DO Unavailable [phone] Gus Chowdary MD Unavailable Kasey Williamson DO Primary Care Provider [phone] Virginie Reyes RN Unavailable Unavailable Virginie Reyes RN Unavailable Unavailable Virginie Reyes RN Unavailable Unavailable Kelley Lopez HIGH SCHOOL MUSIC TEACHER, CORN CHIP MAKER Unavailable [phone] Virginie Reyes RN Unavailable Unavailable Reason for Visit * Reason Comments Medication Refill Encounter Details Date Type Department Care Team (Late st Contact Info) Description 12/09/2021 Refill [facility] #2 [place] [address] Vaughn Bradshaw MD #1 [place] [address] Medication Refill Social History Tobacco Use Types [...] Pending Prescriptions Disp Refills ergocalciferol (VITAMIN D) 82976 UNIT Capsule [Pharmacy Med Name: VITAMIN D2 [...] MD [facility] 07/04/21 Office Visit Vaughn Bradshaw, MD [facility] 04/21/21 Telemedicine Monae Jorgensen APRN, CNP [facility] 02/24/21 Office Visit Vaughn Bradshaw MD [facility] 01/20/21 Office Visit Vaughn Bradshaw MD [facility] 12/09/20 Office Visit Vaughn Bradshaw, [facility] Showing recent visits within past 365 days and meeting all other requirements Future Appointments No visits were found meeting these conditions. Showing future appointments within next 90 days and meeting all other requirements documented in this encounter Plan of Treatment Upcoming Encounters Date Type Department Care Team (Late st Contact Info) Description 01/10/2025 8:45 AM CDT Physical Therapy [facility] Re[facility] at [facility] 200 [facility], [facility] [address] [place] [address] Monae Jorgensen APRN, CORN CHIP MAKER #2 [facility] [address] [place] [address] Aishwarya [place]uca, PT [place] Discharge Disposition: Discharged to home or Selfcare 01/19/2025 8:40 AM CDT Office Visit [facility] - Family Medicine - [place] #2 [place] [address] Kasey Williamson, DO 2 [facility] [address] [place] [address] documented as of this encounter Visit Diagnoses [...] as of this encounter Care Teams Stock Sorter Relationship Specialty Start Date End Date Vaughn Bradshaw MD PCP - General Family Medicine 05/18/18 08/26/23 Kasey Williamson DO [address] [facility] [place] [address] PCP - General Family Medicine 09/14/23 Claudia Horn APRN [address] [place] [address] Advanced Practice Nurse 08/16/18 Vicenta Raymond DO [address] [place] [address] [place] [address] Consulting Physician Obstetrics & Gynecology 09/25/21 Gus Chowdary MD #2 [facility] [address] [place] [address] Consulting Physician Colon and Rectal Surgery 07/23/22 Virginie Reyes, RN [place] Nurse Oceanology Teacher 09/14/23 09/14/23 Virginie Reyes, RN [place] Nurse Oceanology Teacher 11/19/23 11/29/23 Virginie Reyes RN [place] Nurse Oceanology Teacher 12/07/23 05/15/24 Kelley Lopez, HIGH SCHOOL MUSIC TEACHER, CORN CHIP MAKER #2 [facility], [address] [place] [address] Nurse Practitioner Advanced Practice Nurse 12/09/23 02/22/24 Virginie Reyes RN [place] Nurse Oceanology Teacher 11/16/24 11/16/24 documented as of this encounter
--- OUTSIDE RECORDS SUMMARY | 2025-01-05 17:20 | XMS_ITS | Encounter Summary ---
Author Organization [facility] Address [address] [facility] [place] [address] Care Team Providers Care Supervisor Remelt Name Role Phone Kasey Williamson DO Primary Care Provider [phone] Encounter Details Date Type Department Care Team (Late st Contact Info) Description 01/05/[address] [facility]ician Group - [address] [place] [address], [place] [address] Marii Nunez RN Social History Tobacco Use Types Packs/Day Years [...] Recorded Patient Health Questionnaire-2 Score 2 01/11/2023 [facility] [place] [facility] Occupat ional Health - Occupational Stress [...] any time in the past 12 m [facility], were you homeless or living in a long-term (including now)? No 08/19/2024 Comments No Sex and Gender Information Value Date Recorded Sex Assigned at Not on file Legal Sex Female 12:53 PM SECURITY COMPLIANCE SPECIALIST Gender Identity Not on file Sexual Orientation [...] Meyer RN * Does person have difficulty doing [...] Care Team (Late st Contact Info) Description 01/18/2025 10:00 AM CDT [facility] [address] [facility] [address] [place] [address] Mohan Alvarez MD [address] [facility] [address] [place] [address] 02/01/2025 12:30 PM SECURITY COMPLIANCE SPECIALIST Appointment [facility] [address] [place] [address] Jorge Tran MD [address] [place] [phone] 02/01/2025 2:30 PM SECURITY COMPLIANCE SPECIALIST Office Visit [facility] - [facility] [address] [place] [address], [place] [address] Jorge Tran MD [address] [place] [phone] 02/12/2025 11:00 AM SECURITY COMPLIANCE SPECIALIST Office Visit [facility] - Endocrinology [address] [place] [address], [place] [address] Phoebe Joseph MD [address] [place] [address] [place] [address] documented as of this encounter Goals Goal Patient Goal Type Associated Problems Recent Progress Patient-Stated? Author Medication Management General On track( 025 11:16 AM CDT) No Fidelia Lainez, RN Note: Expected end date: 1 year Interventions: Take all medications as prescribed Safety General On track( 025 11:16 AM CDT) Melany Wood RN Note: Expected end date: ongoing Interventions: Your nurse will assess your risk for falls/injury each visit Make and keep follow-up appointments General On track( 025 8:34 AM CDT) Melany Wood RN documented as of this encounter Visit Diagnoses Not on filedocumented in this encounter Care Teams Supervisor Remelt Relationship Specialty Start Date End Date Kasey Williamson DO [address] [place] [address] PCP - General Family Medicine 12/27/23 documented as of this encounter
--- OUTSIDE RECORDS SUMMARY | 2025-01-05 17:20 | XMS_ITS | Encounter Summary ---
Author Organization [facility] Address [address] [place] [address] Phone Care Team Providers Care Soft Sugar Supervisor Name Role Phone Vaughn Bradshaw MD Primary Care Provider [phone] Claudia Horn BEAM BUILDER Unavailable Vicenta Raymond DO Unavailable Gus Chowdary MD Unavailable Kasey Williamson DO Primary Care Provider [phone] Virginie Reyes RN Unavailable Unavailable Virginie Reyes RN Unavailable Unavailable Virginie Reyes RN Unavailable Unavailable Kelley Lopez BEAM BUILDER, HEALTH INSURANCE ASSESSOR Unavailable [phone] Virginie Reyes RN Unavailable Unavailable Reason for Visit * Reason Comments Medication Refill Encounter Details Date Type Department Care Team (Late st Contact Info) Description 03/09/2022 Refill [facility] - Family Medicine [facility] #2 [place] [address] Vaughn Brdashaw MD #1 [place] [address] Medication Refill Social History Tobacco Use Types [...] Prerna Mann RN - 03/09/2022 9:24 AM GEOPHYSICIST Medication failed the protocol, provider to review and approve the medication order if appropriate. Requested Prescriptions Pending Prescriptions Disp Refills ergocalciferol (VITAMIN D) 89786 UNIT Capsule [Pharmacy Med Name: VITAMIN D2 [...] [facility] 04/21/21 Telemedicine Monae Jorgensen APRN, HEALTH INSURANCE ASSESSOR [facility] Alfonso Showing recent visits within past 365 days and meeting all other requirements Future Appointments Date Type Provider Dept 06/04/22 Appointment Vaughn Bradshaw MD [facility] Showing future appointments within next 90 days and meeting all other requirements HYSICIST documented in this encounter Plan of Treatment Upcoming Encounters Date Type Department Care Team (Late st Contact Info) Description 01/10/2025 8:45 AM CDT Physical Therapy [facility] at [facility] 200 [facility], [facility] [address] [place] [address] Monae Jorgensen, BEAM BUILDER, HEALTH INSURANCE ASSESSOR #2 [facility] [address] [place] [address] Aishwarya Deluca, PT [place] Discharge Disposition: Discharged to home or Selfcare 01/19/2025 8:40 AM CDT Office Visit [facility] Family Medicine [facility] #2 [place] [address] Kasey Williamson DO 2 [facility] [address] [place] [address] documented as of this encounter Visit Diagnoses Diagnosis Vitamin D deficiency Unspecified vitamin D deficiency documented in this encounter Additional Health Concerns Infection Onset Date Last Indicated Resolved Time COVID - 19 11/15/2023 11/15/2023 11/15/2023 11:4 7 PM CDT VRE 08/18/2024 08/18/2024 Assessment Noted Time PHQ-9 Depression Total Score: 0 11/05/19 9:00 AM CDT documented as of this encounter Care Teams Soft Sugar Supervisor Relationship Specialty Start Date End Date Vaughn Bradshaw MD PCP - General Family Medicine 05/18/18 08/26/23 Kasey Williamson DO 2 [facility] [address] [place] [address] PCP - General Family Medicine 09/14/23 Claudia Horn, BEAM BUILDER [address] [place] [place] [address] Advanced Practice Nurse 08/16/18 Vicenta Raymond DO ONE PROFESSIONAL [place] [address] [place] [address] Consulting Physician Obstetrics & Gynecology 09/25/21 Gus Chowdary MD #2 [facility] [address] [place] [address] Consulting Physician Colon and Rectal Surgery 07/23/22 Virginie Reyes, RN [place] Nurse Certified Ophthalmic Medical Technician 09/14/23 09/14/23 Virginie Reyes, RN [place] Nurse Certified Ophthalmic Medical Technician 11/19/23 11/29/23 Virginie Reyes, RN [place] Nurse Certified Ophthalmic Medical Technician 12/07/23 05/15/24 Kelley Lopez, BEAM BUILDER, HEALTH INSURANCE ASSESSOR #2 [facility] [address] [place] [address] Nurse Practitioner Advanced Practice Nurse 12/09/23 02/22/24 Virginie Reyes, RN [place] Nurse Certified Ophthalmic Medical Technician 11/16/24 11/16/24 documented as of this encounter
--- OUTSIDE RECORDS SUMMARY | 2025-01-05 17:20 | XMS_ITS | Encounter Summary ---
Author Organization [facility] Address [address] [place] [address] Phone Care Team Providers Care Archivist Name Role Phone Vaughn Bradshaw MD Primary Care Provider [phone] Claudia Horn SCRIPT WORKER Unavailable [phone] Vicenta Raymond DO Unavailable [phone] Gus Chowdary MD Unavailable Kasey Williamson DO Primary Care Provider [phone] Virginie Reyes RN Unavailable Unavailable Virginie Reyes RN Unavailable Unavailable Virginie Reyes RN Unavailable Unavailable eKlley Lopez SCRIPT WORKER, DENTAL INSTRUMENT MAKER Unavailable [phone] Virginie Reyes RN Unavailable Unavailable Reason for Visit * Reason Comments Medication Refill Encounter Details Date Type Department Care Team (Late st Contact Info) Description 05/07/2022 Refill [facility] #2 [place] [address] Vaughn Bradshaw MD #1 [place] [address] Medication Refill Social History Tobacco Use Types [...] Prerna Mann RN - 05/07/2022 8:45 AM FIOS LINE INSTALLER Per nursing clinical judgement, provider to review [...] 90 days and meeting all other requirements LINE INSTALLER documented in this encounter Plan of Treatment Upcoming Encounters Date Type Department Care Team (Late st Contact Info) Description 01/10/2025 8:45 AM CDT Physical [facility] 200 [facility], [facility] [address] [place] [address] Monae Jorgensen, SCRIPT WORKER, DENTAL INSTRUMENT MAKER #2 [facility] [address] [place] [address] Aishwarya Deluca, PT [place] Discharge Disposition: Discharged to home or Selfcare 01/19/2025 8:40 AM CDT Office Visit [facility] - Family [facility] #2 [place] [address] Kasey Williamson DO [address] [address] documented as of this encounter Visit Diagnoses Not on filedocumented in this encounter Additional Health Concerns Infection Onset Date Last Indicated Resolved Time COVID - 19 11/15/2023 11/15/2023 11/15/2023 11:4 7 PM CDT VRE 08/18/2024 08/18/2024 Assessment Noted Time PHQ-9 Depression Total Score: 0 11/05/19 22 9:00 AM CDT documented as of this encounter Care Teams Archivist Relationship Specialty Start Date End Date Vaughn Bradshaw MD PCP - General Family Medicine 05/18/18 08/26/23 Kasey Williamson DO 2 [facility] [address] [place] [address] PCP - General Family Medicine 09/14/23 Claudia Horn APRN [address] [place] [address] Advanced Practice Nurse 08/16/18 Vicenta Raymond DO ONE PROFESSIONAL [facility] [address] [place] [address] Consulting Physician Obstetrics & Gynecology 09/25/21 Gus Chowdary MD #[address] [facility] [address] [place] [address] Consulting Physician Colon and Rectal Surgery 07/23/22 Virginie Reyes, RN [place] Nurse Manual Qa Tester 09/14/23 09/14/23 Virginie Reyes, RN [place] Nurse Manual Qa Tester 11/19/23 11/29/23 Virginie Reyes, RN [place] Nurse Manual Qa Tester 12/07/23 05/15/24 Kelley Lopez, SCRIPT WORKER, DENTAL INSTRUMENT MAKER #2 [facility] [address] [place] [address] Nurse Practitioner Advanced Practice Nurse 12/09/23 02/22/24 Virginie Reyes, RN [place] Nurse Manual Qa Tester 11/16/24 11/16/24 documented as of this encounter
--- OUTSIDE RECORDS SUMMARY | 2025-01-05 17:20 | XMS_ITS | Encounter Summary ---
Author Organization [facility] Address [address] [place] [address] Phone Care Team Providers Care Starch Cooker Name Role Phone Vaughn Bradshaw MD Primary Care Provider [phone] Claudia Horn RESIDENCE COUNSELOR Unavailable [phone] Vicenta Raymond DO Unavailable Gus Chowdary MD Unavailable Kasey Williamson DO Primary Care Provider [phone] Virginie Reyes RN Unavailable Unavailable Virginie Reyes RN Unavailable Unavailable Virginie Reyes RN Unavailable Unavailable Kelley Lopez RESIDENCE COUNSELOR, HAM MARKER Unavailable [phone] Virginie Reyes RN Unavailable Unavailable Reason for Visit * Reason Comments Medication Refill Encounter Details Date Type Department Care Team (Late st Contact Info) Description 09/21/2021 Refill [facility] Family [facility] #2 [place] [address] Vaughn Bradshaw MD #1 [place] [address] Medication Refill Social History Tobacco Use Types [...] Description 01/10/2025 8:45 AM CDT [facility] 200 [facility], [place] [address] [place] [address] Monae Jorgensen, RESIDENCE COUNSELOR, HAM MARKER #2 [facility] [address] [place] [address] Aishwarya [place], PT [place] Discharge Disposition: Discharged to home or Selfcare 01/19/2025 8:40 AM CDT Office Visit [facility] - Family Medicine [facility] #2 [place] [address] Kasey Williamson, DO 2 [facility] [address] [place] [address] documented as of this encounter Visit Diagnoses [...] documented as of this encounter Care Teams Starch Cooker Relationship Specialty Start Date End Date Vaughn Bradshaw MD PCP - General Family Medicine 05/18/18 08/26/23 Kasey Williamson DO 2 [facility] [address] [place] [address] PCP - General Family Medicine 09/14/23 Claudia Horn, RESIDENCE COUNSELOR [address] [place] [address] Advanced Practice Nurse 08/16/18 Vicenta Raymond DO [address] [place] [address] [place] [address] Consulting Physician Obstetrics & Gynecology 09/25/21 Gus Chowdary MD #2 [facility] [address] [place] [address] Consulting Physician Colon and Rectal Surgery 07/23/22 Virginie Reyes, FAYE [place] Nurse Telegraph Plant Maintainer 09/14/23 09/14/23 Virginie Reyes RN [place] Nurse Telegraph Plant Maintainer 11/19/23 11/29/23 Virginie Reyes RN [place] Nurse Telegraph Plant Maintainer 12/07/23 05/15/24 Kelley Lopez, RESIDENCE COUNSELOR, HAM MARKER #2 [facility], [address] [place] [address] Nurse Practitioner Advanced Practice Nurse 12/09/23 02/22/24 Virginie Reyes RN [place] Nurse Telegraph Plant Maintainer 11/16/24 11/16/24 documented as of this encounter
--- OUTSIDE RECORDS SUMMARY | 2025-01-05 17:20 | XMS_ITS | Encounter Summary ---
Author Organization [facility] Address [address] [place] [address] Phone Care Team Providers Care Machine Design Engineer Name Role Phone Vaughn Bradshaw MD Primary Care Provider [phone] Claudia Horn VAULT SERVICE MECHANIC Unavailable [phone] Vicenta Raymond DO Unavailable Gus Chowdary MD Unavailable Kasey Williamson DO Primary Care Provider [phone] Virginie Reyes RN Unavailable Unavailable Virginie Reyes RN Unavailable Unavailable Virginie Reyes RN Unavailable Unavailable Kelley Lopez VAULT SERVICE MECHANIC, NOTE TELLER Unavailable [phone] Virginie Reyes RN Unavailable Unavailable Reason for Visit * Reason Comments Medication Refill Encounter Details Date Type Department Care Team (Late st Contact Info) Description 04/12/2022 Refill [facility] Family [facility] #2 [place] [address] Vaughn Bradshaw MD #1 [place] [address] Medication Refill Social History Tobacco Use Types [...] Prerna Mann RN - 04/13/2022 11:14 AM STRIKER OFF Medication failed the protocol, provider to review [...] MD [facility] 11/04/21 Office Visit Vaughn Brdashaw MD [facility] 07/04/21 Office Visit Vaughn Bradshaw MD [facility] 04/21/21 Telemedicine Monae Jorgensen APRN, FIGUEROA [facility] 02/24/21 Office Visit Vaughn Bradshaw MD [facility] 01/20/21 Office Visit Vaughn Bradshaw MD [facility] 12/09/20 Office Visit Vaughn Bradshaw MD [facility] 11/28/20 Telemedicine Vaughn Bradshaw MD [facility] 10/03/20 Office Visit Vaughn Bradshaw MD [facility] Showing recent visits within past 730 days and meeting all other requirements Future Appointments Date Type Provider Dept 06/04/22 Appointment Vaughn Bradshaw MD [facility] Showing future appointments within next 90 days and meeting all other requirements Passed - No documented Systolic BP > 200 within past 3 months Passed - Number of active Serotonergic medications less than 3 KER OFF documented in this encounter Plan of Treatment Upcoming Encounters Date Type Department Care Team (Late st Contact Info) Description 01/10/2025 8:45 AM CDT Physical Therapy [facility] at [facility] 200 [facility], [facility] H[address] [place] [address] Monae Jorgensen, VAULT SERVICE MECHANIC, NOTE TELLER #2 [facility] [address] [place] [address] Aishwarya [place]uca, PT [place] Discharge Disposition: Discharged to home or Selfcare 01/19/2025 8:40 AM CDT Office Visit [facility] Medical Group - Family Medicine [facility] #2 [place] [address] Kasey Williamson, DO 2 [facility]. [address] [place] [address] documented as of this encounter Visit Diagnoses Diagnosis Other migraine without status migrainosus, not intractable documented in this encounter Additional Health Concerns Infection Onset Date Last Indicated Resolved Time COVID - 19 11/15/2023 11/15/2023 11/15/2023 11:4 7 PM CDT VRE 08/18/2024 08/18/2024 Assessment Noted Time PHQ-9 Depression Total Score: 0 11/05/19 22 9:00 AM CDT documented as of this encounter Care Teams Machine Design Engineer Relationship Specialty Start Date End Date Vaughn Bradshaw MD PCP - General Family Medicine 05/18/18 08/26/23 Kasey Williamson DO 2 [facility]. [address] [place] [address] PCP - General Family Medicine 09/14/23 Claudia Horn APRN [address] [place] [address] Advanced Practice Nurse 08/16/18 Vicenta Raymond DO ONE PROFESSIONAL [facility] [address] [place] [address] Consulting Physician Obstetrics & Gynecology 09/25/21 Gus Chowdary MD #2 [facility] [address] [place] [address] Consulting Physician Colon and Rectal Surgery 07/23/22 Virginie Reyes, RN [place] Nurse Bad Cloth Checker 09/14/23 09/14/23 Virginie Reyes, RN [place] Nurse Bad Cloth Checker 11/19/23 11/29/23 Virginie Reyes, RN [place] Nurse Bad Cloth Checker 12/07/23 05/15/24 Kelley Lopez APRN, NOTE TELLER #2 [facility] [address] [place] [address] Nurse Practitioner Advanced Practice Nurse 12/09/23 02/22/24 Virginie Reyes, RN [place] Nurse Bad Cloth Checker 11/16/24 11/16/24 documented as of this encounter
--- OUTSIDE RECORDS SUMMARY | 2025-01-05 17:20 | XMS_ITS | Encounter Summary ---
Author Organization [facility] Address [address] [place] [address] Phone Care Team Providers Care Bench Grinder Name Role Phone Vaughn Bradshaw MD Primary Care Provider Claudia Horn SPLINE ROLLING MACHINE JOB SETTER Unavailable Vicenta Raymond DO Unavailable Gus Chowdary MD Unavailable Kasey Williamson DO Primary Care Provider [phone] Virginie Reyes RN Unavailable Unavailable Virginie Reyes RN Unavailable Unavailable Virginie Reyes RN Unavailable Unavailable Kelley Lopez SPLINE ROLLING MACHINE JOB SETTER, SUPERVISOR METAL HANGING Unavailable [phone] Virginie Reyes RN Unavailable Unavailable Reason for Visit * Reason Comments Medication Refill Encounter Details Date Type Department Care Team (Late st Contact Info) Description 05/06/2022 Refill [facility] Family [facility] #2 [place] [address] Vaughn Bradshaw MD #1 [place] [address] Medication Refill Social History Tobacco Use Types [...] Prerna Mann RN - 05/07/2022 8:28 AM BRAKE PRESS OPERATOR Medication failed the protocol, provider to review [...] [facility] 12/16/21 Office Visit Vaughn Bradshaw MD [facility] Showing recent visits within past 182 [...] Ref Range Status 01/15/2022 >60 >=60 Final E PRESS OPERATOR documented in this encounter Plan of Treatment Upcoming Encounters Date Type Department Care Team (Late st Contact Info) Description 01/10/2025 8:45 AM CDT Physical Therapy [facility] Rehab at [facility] 200 [facility], [facility] H[address] [place] [address] Monae Jorgensen, SPLINE ROLLING MACHINE JOB SETTER, SUPERVISOR METAL HANGING #2 [facility] [address] [place] [address] Aishwarya [place], PT [place] Discharge Disposition: Discharged to home or Selfcare 01/19/2025 8:40 AM CDT Office Visit [facility] Medical Group - Family Medicine [facility] #2 [place] [address] Kasey Williamson, DO 2 [facility] [address] [place] [address] documented as of this encounter Visit Diagnoses Diagnosis Type 2 diabetes mellitus with hyperglycemia, with long-term current use of insulin documented in this encounter Additional Health Concerns Infection Onset Date Last Indicated Resolved Time COVID - 19 11/15/2023 11/15/2023 11/15/2023 11:4 7 PM CDT VRE 08/18/2024 08/18/2024 Assessment Noted Time PHQ-9 Depression Total Score: 0 11/05/19 22 9:00 AM CDT documented as of this encounter Care Teams Bench Grinder Relationship Specialty Start Date End Date Vaughn Bradshaw MD PCP - General Family Medicine 05/18/18 08/26/23 Kasey Williamson DO 2 [facility] [place]. [address] [place] [address] PCP - General Family Medicine 09/14/23 Claudia Horn APRN [address] [place] [address] Advanced Practice Nurse 08/16/18 Vicenta Raymond DO ONE PROFESSIONAL [address] [address] Consulting Physician Obstetrics & Gynecology 09/25/21 Gus Chowdary MD #2 [facility] [address] [place] [address] Consulting Physician Colon and Rectal Surgery 07/23/22 Virginie Reyes, RN [place] Nurse Car Stereo Installer 09/14/23 09/14/23 Virginie Reyes, RN [place] Nurse Car Stereo Installer 11/19/23 11/29/23 Virginie Reyes, RN [place] Nurse Car Stereo Installer 12/07/23 05/15/24 Kelley Lopez, SPLINE ROLLING MACHINE JOB SETTER, SUPERVISOR METAL HANGING #2 [facility] [address] [place] [address] Nurse Practitioner Advanced Practice Nurse 12/09/23 02/22/24 Virginie Reyes, RN [place] Nurse Car Stereo Installer 11/16/24 11/16/24 documented as of this encounter
--- OUTSIDE RECORDS SUMMARY | 2025-01-05 17:20 | XMS_ITS | Encounter Summary ---
Author Organization [facility] Address [address] [place] [address] Phone Care Team Providers Care Watch Guard Gate Name Role Phone Vaughn Bradshaw MD Primary Care Provider [phone] Claudia Horn NEGATIVE CLEANER Unavailable Vicenta Raymond DO Unavailable [phone] Gus Chowdary MD Unavailable Kasey Williamson DO Primary Care Provider [phone] Virginie Reyes RN Unavailable Unavailable Virginie Reyes RN Unavailable Unavailable Virginie Reyes RN Unavailable Unavailable Kelley Lopze NEGATIVE CLEANER, HOOP PUNCH AND COILER OPERATOR HELPER Unavailable [phone] Virginie Reyes RN Unavailable Unavailable Reason for Visit * Reason Comments Medication Refill Encounter Details Date Type Department Care Team (Late st Contact Info) Description 05/07/2022 Refill [facility] #2 [place] [address] Vaughn Bradshaw MD #1 [place] [address] Medication Refill Social History Tobacco Use Types [...] reordered on 05/11/2022 by Vaughn Bradshaw MD. TRAPPER * Telephone Encounter - Maria T Alejandre RN - 05/08/2022 7:52 AM CST duplicate TRAPPER * Telephone Encounter - Maria T Alejandre RN - 05/08/2022 7:49 AM CST duplicate TRAPPER documented in this encounter Plan of Treatment Upcoming Encounters Date Type Department Care Team (Late st Contact Info) Description 01/10/2025 8:45 AM CDT Physical Therapy [facility] Rehab at [facility] [address] [address] Monae Jorgensen, NEGATIVE CLEANER, HOOP PUNCH AND COILER OPERATOR HELPER #[address] [address] Aishwarya [place], PT [place] Discharge Disposition: Discharged to home or Selfcare 01/19/2025 8:40 AM CDT Office Visit [facility] - Family [facility] - [place] #2 [place] [address] Kasey Williamson, [address] [address] documented as of this encounter Visit Diagnoses [...] as of this encounter Care Teams Watch Guard Gate Relationship Specialty Start Date End Date Vaughn Bradshaw MD PCP - General Family Medicine 05/18/18 08/26/23 Kasey Williamson DO [address] [address] PCP - General Family Medicine 09/14/23 Claudia Horn APRN [address] [place] [address] Advanced Practice Nurse 08/16/18 Vicenta Raymond DO ONE PROFESSIONAL [address] [place] [address] Consulting Physician Obstetrics & Gynecology 09/25/21 Gus Chowdary MD #2 [facility] [address] [place] [address] Consulting Physician Colon and Rectal Surgery 07/23/22 Virginie Reyes, RN [place] Nurse Cycle Liaison 09/14/23 09/14/23 Virginie Reyes, RN [place] Nurse Cycle Liaison 11/19/23 11/29/23 Virginie Reyes, RN [place] Nurse Cycle Liaison 12/07/23 05/15/24 Kelley Lopez, NEGATIVE CLEANER, HOOP PUNCH AND COILER OPERATOR HELPER #2 [facility] [address] [place] [address] Nurse Practitioner Advanced Practice Nurse 12/09/23 02/22/24 Virginie Reyes, RN [place] Nurse Cycle Liaison 11/16/24 11/16/24 documented as of this encounter
--- OUTSIDE RECORDS SUMMARY | 2025-01-05 17:20 | XMS_ITS | Encounter Summary ---
Author Organization [facility] Address [address] [place] [address] Phone Care Team Providers Care Vest Presser Name Role Phone Vaughn Bradshaw MD Primary Care Provider [phone] Claudia Horn ROVING WINDER Unavailable [phone] Vicenta Raymond DO Unavailable Gus Chowdary MD Unavailable Kasey Williamson DO Primary Care Provider [phone] Virginie Reyes RN Unavailable Unavailable Virginie Reyes RN Unavailable Unavailable Virginie Reyes RN Unavailable Unavailable Kelley Lopez ROVING WINDER, SUPERVISORY CLERK Unavailable [phone] Virginie Reyes RN Unavailable Unavailable Reason for Visit * Reason Comments Medication Refill Encounter Details Date Type Department Care Team (Late st Contact Info) Description 03/28/2022 Refill [facility] Family [facility] #2 [place] [address] Vaughn Bradshaw MD #1 [place] [address] Medication Refill Social History Tobacco Use Types [...] Prerna Mann RN - 03/30/2022 8:31 AM PICKER AND SORTER LOAD AND UNLOAD Refill requested too soon. ER AND SORTER LOAD AND UNLOAD documented in this encounter Plan of Treatment Upcoming Encounters Date Type Department Care Team (Late st Contact Info) Description 01/10/2025 8:45 AM CDT [facility] 200 [facility], [facility] H[address] [place] [address] Monae Jorgensen, ROVING WINDER, SUPERVISORY CLERK #2 [facility] 205 [place] [address] Aishwarya [place], PT [place] Discharge Disposition: Discharged to home or Selfcare 01/19/2025 8:40 AM CDT Office Visit [facility] Family [facility] - [place] #2 [place] [address] Kasey Williamson, DO 2 [facility] 205 [place] [address] documented as of this encounter Visit Diagnoses Diagnosis Anxiety and depression Dysthymic disorder documented in this encounter Additional Health Concerns Infection Onset Date Last Indicated Resolved Time COVID - 19 11/15/2023 11/15/2023 11/15/2023 11:4 7 PM CDT VRE 08/18/2024 08/18/2024 Assessment Noted Time PHQ-9 Depression Total Score: 0 11/05/19 22 9:00 AM CDT documented as of this encounter Care Teams Vest Presser Relationship Specialty Start Date End Date Vaughn Bradshaw MD PCP - General Family Medicine 05/18/18 08/26/23 Kasey Williamson DO 2 [facility] 205 [place] [address] PCP - General Family Medicine 09/14/23 Claudia Horn APRN [address] [place] [address] Advanced Practice Nurse 08/16/18 Vicenta Raymond DO ONE PROFESSIONAL [address] [address] Consulting Physician Obstetrics & Gynecology 09/25/21 Gus Chowdary MD #2 [facility] [address] [place] [address] Consulting Physician Colon and Rectal Surgery 07/23/22 Virginie Reyes, RN [place] Nurse Concierge Receptionist 09/14/23 09/14/23 Virginie Reyes, RN [place] Nurse Concierge Receptionist 11/19/23 11/29/23 Virginie Reyes, RN [place] Nurse Concierge Receptionist 12/07/23 05/15/24 Kelley Lopez APRN, SUPERVISORY CLERK #2 [facility] [address] [place] [address] Nurse Practitioner Advanced Practice Nurse 12/09/23 02/22/24 Virginie Reyes, RN [place] Nurse Concierge Receptionist 11/16/24 11/16/24 documented as of this encounter
--- OUTSIDE RECORDS SUMMARY | 2025-01-05 17:20 | XMS_ITS | Encounter Summary ---
Author Organization [facility] Address [address] [place] [address] Phone Care Team Providers Care Halal Butcher Name Role Phone Vaughn Bradshaw MD Primary Care Provider [phone] Claudia Horn HIRE CAR DRIVER Unavailable [phone] Vicenta Raymond DO Unavailable Gus Chowdary MD Unavailable Kasey Williamson DO Primary Care Provider [phone] Virginie Reyes RN Unavailable Unavailable Virginie Reyes RN Unavailable Unavailable Virginie Reyes RN Unavailable Unavailable Kelley Lopez HIRE CAR DRIVER, ASPNET DEVELOPER Unavailable [phone] Virginie Reyes RN Unavailable Unavailable Reason for Visit * Reason Comments Medication Refill Encounter Details Date Type Department Care Team (Late st Contact Info) Description 03/03/2022 Refill [facility] [address] [place] [address] Vaughn Bradshaw MD #1 [place] [address] Medication Refill Social History Tobacco Use Types [...] Coronavirus/COVID-19? No / Unsure 02/02/2022 11:51 AM FAMILY PROTECTION SPECIALIST documented as of this encounter Miscellaneous Notes [...] [place] 11/04/21 Office Visit Vaughn Bradshaw MD [facility] Showing recent visits within past 182 days [...] Ref Range Status 01/15/2022 >60 >=60 Final LY PROTECTION SPECIALIST documented in this encounter Plan of Treatment Upcoming Encounters Date Type Department Care Team (Late st Contact Info) Description 01/10/2025 8:45 AM CDT [facility] [address] [facility], [facility] [address] [place] [address] Monae Jorgensen, HIRE CAR DRIVER, ASPNET DEVELOPER #2 [facility] [address] [place] [address] Aishwarya Deluca, PT [place] Discharge Disposition: Discharged to home or Selfcare 01/19/2025 8:40 AM CDT Office Visit [facility] - Family Medicine [facility] [address] [place] [address] Kasey Williamson, DO 2 [facility] [address] [place] [address] documented as of this encounter Visit Diagnoses [...] documented as of this encounter Care Teams Halal Butcher Relationship Specialty Start Date End Date Vaughn Bradshaw MD PCP - General Family Medicine 05/18/18 08/26/23 Kasey Williamson DO 2 [facility] [address] [place] [address] PCP - General Family Medicine 09/14/23 Claudia Horn APRN [address] [place] [address] Advanced Practice Nurse 08/16/18 Vicenta Raymond DO [facility] [address] [address] Consulting Physician Obstetrics & Gynecology 09/25/21 Gus Chowdary MD #2 [facility] [address] [place] [address] Consulting Physician Colon and Rectal Surgery 07/23/22 Virginie Reyes, FAYE [place] Nurse Merchandising Intern 09/14/23 09/14/23 Virginie Reyes, RN [place] Nurse Merchandising Intern 11/19/23 11/29/23 Virginie Reyes, RN [place] Nurse Merchandising Intern 12/07/23 05/15/24 Kelley Lopez APRN, ASPNET DEVELOPER #2 [facility], [address] [place] [address] Nurse Practitioner Advanced Practice Nurse 12/09/23 02/22/24 Virginie Reyes, RN [place] Nurse Merchandising Intern 11/16/24 11/16/24 documented as of this encounter
--- OUTSIDE RECORDS SUMMARY | 2025-01-05 17:20 | XMS_ITS | Encounter Summary ---
Author Organization [facility] Address [address] [place] [address] Care Team Providers Care Sign Poster Name Role Phone Kasey Williamson DO Primary Care Provider [phone] Melany Kuhn RN Unavailable Unavailable Encounter Details Date Type Department Care Team (Late Contact Info) Description 09/02/2018 Lab Requisition [facility] [address] [place] [address] Beth Osullivan MD [address] [place] [address] Other pancytopenia Social History Tobacco Use Types Packs/Day Years Used Date Smoking Tobacco: Never Assessed Comments Unknown Sex and Gender Information Value Date Recorded Sex Assigned at Not on file Legal Sex Female 12:53 PM SIDE SEAM TENDER Gender Identity Not on file Sexual Orientation Not on file documented as of this encounter Plan of Treatment Upcoming Encounters Date Type Department Care Team (Late Contact Info) Description 01/18/2025 10:00 AM CDT Office Visit [facility] [address] [facility] [address] [place] [address] Mohan Alvarez MD [address] [facility] [address] [place] [address] 02/01/2025 12:30 PM SIDE SEAM TENDER Appointment [facility] [address] [place] [phone] Jorge Tran MD [address] [place] [phone] 02/01/2025 2:30 PM SIDE SEAM TENDER Office Visit [facility] [address] [place] [address], [place] [address] Jorge Tran MD [address] [place] [phone] 02/12/2025 11:00 AM SIDE SEAM TENDER Office Visit [facility] - Endocrinology [address] [place] [address], [place] [phone] Phoebe Joseph MD [address] [place] [phone] documented as of this encounter Procedures Procedure Name Priority Date/Time Associated Diagnosis Comments FLOW CYTOMETRY BONE MARROW Routine 09/02/2018 9:48 AM CDT Other pancytopenia documented in this encounter Results * FLOW CYTOMETRY BONE MARROW (09/02/2018 9:48 AM CDT) Case Report Flow Cytometry Case: [id number] Authorizing Provider: Beth Osullivan MD Collected: 09/02/2018 09:48 AM Pathologist: Kelton Ellsworth MD Received: 09/02/2018 02:43 PM Specimen: Bone Marrow 09/02/2018 4:36 PM CDT [facility] Final Diagnosis Bone marrow, flow cytometric immunophenotypic analysis ([id number]): - No evidence of non-Hodgkin lymphoma or high-grade myeloid neoplasm. - See interpretation. 09/02/2018 4:36 PM CDT [facility] at 1636 CDT Flow Cytometry [...] the flow cytometry specimen is reviewed for manufacturing quality engineer purposes. Overall, the bone marrow aspirate specimen shows no evidence of involvement by non-Hodgkin lymphoma or a high-grade myeloid neoplasm. Correlation with clinical findings, concurrent bone marrow core biopsy, and relevant cytogenetic/molecu lar studies is required. RECORD SYSTEMS ANALYST/NW 09/02/2018 4:36 PM [facility] Flow Cytometry Results Differential Result Comment Flow Cell Count /uL 22965 Total Viability % 83.0 Lymphocytes % 24 Dim CD45 Region % 6 Monocytes % 7 Granulocytes % 55 09/02/2018 4:36 PM [facility] Reason for test Other pancytopenia 284.19 09/02/2018 4:36 PM [facility] Client Specimen ID # [id number] 09/02/2018 4:36 PM [facility] Number of markers 10 were performed. A Flow CD10 A Flow CD13 A Flow CD20 A Flow CD5 A Flow CD19 A Flow CD33 A Flow CD34 A Flow CD45 A [place]+CD19+ A Lambda+CD19+ 09/02/2018 4:36 PM [facility] Disclaimer Test performed at [facility], [address] [place] [address], [address]. *The established laboratory minimum viability is 70%. [...] high complexity clinical testing. 09/02/2018 4:36 PM [facility] Embedded Images 9 4:36 PM [facility] Pathology/Cytolo gy BONE MARROW SPECIMEN / Unknown 09/02/2018 9:48 AM CDT 09/02/2018 2:43 PM CDT Beth Osullivan MD LAB - PATHOLOGY/CYTOLOGY ORDERA BLES Final Result [facility] [address] [phone] documented in this encounter Visit Diagnoses Diagnosis Other pancytopenia (HCC) Other pancytopenia documented in this encounter Additional Health Concerns Infection Onset Date Last Indicated Resolved Time COVID-19 Under Investigation 06/06/2024 06/06/2024 06/06/2024 9:54 AM CDT documented as of this encounter Care Teams Sign Poster Relationship Specialty Start Date End Date Kasey Williamson DO [address] [place] [phone] PCP - General Family Medicine 12/27/23 Melany Kuhn, RN Registered Nurse Hepatology 05/03/24 06/19/24 documented as of this encounter
--- OUTSIDE RECORDS SUMMARY | 2025-01-05 17:20 | XMS_ITS | Encounter Summary ---
Author Organization [facility] Address [address] [place] [address] Phone Care Team Providers Care Core Winding Operator Name Role Phone Vaughn Bradshaw MD Primary Care Provider [phone] Claudia Horn SOYFREEZE OPERATOR Unavailable Vicenta Raymond DO Unavailable [phone] Gus Chowdary MD Unavailable Kasey Williamson DO Primary Care Provider [phone] Virginie Reyes RN Unavailable Unavailable Virginie Reyes RN Unavailable Unavailable Virginie Reyes RN Unavailable Unavailable Kelley oLpez SOYFREEZE OPERATOR, POWER LINEWORKER Unavailable [phone] Virginie Reyes RN Unavailable Unavailable Reason for Visit * Reason Comments Medication Refill Encounter Details Date Type Department Care Team (Late st Contact Info) Description 10/01/2021 Refill [facility] #2 [place] [address] Vaughn Bradshaw MD #1 [place] [address] Medication Refill Social History Tobacco Use Types [...] Description 01/10/2025 8:45 AM CDT [facility] 200 [facility], [address] [place] [address] Monae Jorgensen, SOYFREEZE OPERATOR, POWER LINEWORKER #[address] [address] Aishwarya Deluca, PT [place] Discharge Disposition: Discharged to home or Selfcare 01/19/2025 8:40 AM CDT Office Visit [facility] #2 [place] [address] Kasey Williamson, DO 2 [facility]. [address] [place] [address] documented as of this encounter Visit Diagnoses [...] documented as of this encounter Care Teams Core Winding Operator Relationship Specialty Start Date End Date Vaughn Bradshaw MD PCP - General Family Medicine 05/18/18 08/26/23 Kasey Williamson DO 2 [facility] [address] [place] [address] PCP - General Family Medicine 09/14/23 Claudia Horn, SOYFREEZE OPERATOR [address] [place] [address] Advanced Practice Nurse 08/16/18 Vicenta Raymond DO [address] [place] [address] [place] [address] Consulting Physician Obstetrics & Gynecology 09/25/21 Gus Chowdary MD #2 [facility] [address] [place] [address] Consulting Physician Colon and Rectal Surgery 07/23/22 Virginie Reyes, FAYE [place] Nurse Gathering Machine Setter 09/14/23 09/14/23 Virginie Reyes RN [place] Nurse Gathering Machine Setter 11/19/23 11/29/23 Virginie Reyes RN [place] Nurse Gathering Machine Setter 12/07/23 05/15/24 Kelley Lopez APRN, POWER LINEWORKER #2 [facility], [address] [place] [address] Nurse Practitioner Advanced Practice Nurse 12/09/23 02/22/24 Virginie Reyes RN [place] Nurse Gathering Machine Setter 11/16/24 11/16/24 documented as of this encounter
--- OUTSIDE RECORDS SUMMARY | 2025-01-05 17:20 | XMS_ITS | Encounter Summary ---
Author Organization [facility] Address [address] [place] [address] Phone Care Team Providers Care Corporate Giving Manager Name Role Phone Vaughn Bradshaw MD Primary Care Provider [phone] Claudia Horn CARPENTERS HELPER Unavailable Vicenta Raymond DO Unavailable [phone] Gus Chowdary MD Unavailable Kasey Williamson DO Primary Care Provider Virginie Reyes RN Unavailable Unavailable Virginie Reyes RN Unavailable Unavailable Virginie Reyes RN Unavailable Unavailable Kelley Lopez CARPENTERS HELPER, CONCIERGE RECEPTIONIST Unavailable [phone] Virginie Reyes RN Unavailable Unavailable Encounter Details Date Type Department Care Team (Late st Contact Info) Description 01/12/2023 Transcribe [facility]uling 1 [place] [address] Maria Teresa Myers, RN [place] [...] 01/10/2025 8:45 AM CDT Physical Therapy [facility] at [facility] 200 [facility], [address] [place] [address] Monae Jorgensen, CARPENTERS HELPER, CONCIERGE RECEPTIONIST #2 [facility] [address] [place] [address] Aishwarya Deluca, PT [place] Discharge Disposition: Discharged to home or Selfcare 01/19/2025 8:40 AM CDT Office Visit [facility] #2 [place] [address] Kasey Williamson, DO 2 [facility]. [address] [place] [address] documented as of this encounter Visit Diagnoses Not on filedocumented in this encounter Additional Health Concerns Infection Onset Date Last Indicated Resolved Time COVID - 19 11/15/2023 11/15/2023 11/15/2023 11:4 7 PM CDT VRE 08/18/2024 08/18/2024 Assessment Noted Time PHQ-9 Depression Total Score: 0 12/08/19 23 8:37 AM CDT documented as of this encounter Care Teams Corporate Giving Manager Relationship Specialty Start Date End Date Vaughn Bradshaw MD PCP - General Family Medicine 05/18/18 08/26/23 Kasey Williamson DO 2 [facility]. [address] [place] [address] PCP - General Family Medicine 09/14/23 Claudia Horn APRN [address] [place] [address] Advanced Practice Nurse 08/16/18 Vicenta Raymond DO [facility] [address] [place] [address] Consulting Physician Obstetrics & Gynecology 09/25/21 Gus Chowdary MD #2 [facility] [address] [place] [address] Consulting Physician Colon and Rectal Surgery 07/23/22 Virginie Reyes, RN [place] Nurse Personal Care Worker 09/14/23 09/14/23 Virginie Reyes, RN [place] Nurse Personal Care Worker 11/19/23 11/29/23 Virginie Reyes, RN [place] Nurse Personal Care Worker 12/07/23 05/15/24 Kelley Lopez APRN, CONCIERGE RECEPTIONIST #2 [facility] [address] [place] [address] Nurse Practitioner Advanced Practice Nurse 12/09/23 02/22/24 Virginie Reyes, RN [place] Nurse Personal Care Worker 11/16/24 11/16/24 documented as of this encounter
--- OUTSIDE RECORDS SUMMARY | 2025-01-05 17:20 | XMS_ITS | Encounter Summary ---
Author Organization [facility] Address [address] [place] [address] Phone Care Team Providers Care Outpatient Facility Physical Therapist Name Role Phone Vaughn Bradshaw MD Primary Care Provider [phone] Claudia Horn END LATHE OPERATOR Unavailable Vicenta Raymond DO Unavailable Gus Chowdary MD Unavailable Kasey Williamson DO Primary Care Provider [phone] Virginie Reyes RN Unavailable Unavailable Virginie Reyes RN Unavailable Unavailable Virginie Reyes RN Unavailable Unavailable Kelley Lopez END LATHE OPERATOR, COURSE DEVELOPER Unavailable [phone] Virginie Reyes RN Unavailable Unavailable Reason for Visit * Reason Comments Medication Refill Encounter Details Date Type Department Care Team (Late st Contact Info) Description 04/02/2022 Refill [facility] #2 [place] [address] Vaughn Bradshaw MD #1 [place] [address] Medication Refill Social History Tobacco Use Types [...] Prerna Mann RN - 04/02/2022 9:38 AM CUT OFF SAW OPERATOR METAL Medication failed the protocol, provider to review [...] [place] 11/04/21 Office Visit Vaughn Bradshaw MD [facility] Showing recent visits within past 182 [...] Ref Range Status 01/15/2022 >60 >=60 Final OFF SAW OPERATOR METAL documented in this encounter Plan of Treatment Upcoming Encounters Date Type Department Care Team (Late st Contact Info) Description 01/10/2025 8:45 AM CDT Physical Therapy [facility] Rehab at [facility] 200 [facility], [facility] [address] [place] [address] Monae Jorgensen, END LATHE OPERATOR, COURSE DEVELOPER #2 [facility] 205 [place] [address] Aishwarya Deluca, PT [place] Discharge Disposition: Discharged to home or Selfcare 01/19/2025 8:40 AM CDT Office Visit [facility] - Family Medicine [facility] #2 [place] [address] Kasey Williamson, DO 2 [facility] [address] [place] [address] documented as of this encounter Visit Diagnoses [...] documented as of this encounter Care Teams Outpatient Facility Physical Therapist Relationship Specialty Start Date End Date Vaughn Bradshaw MD PCP - General Family Medicine 05/18/18 08/26/23 Kasey Williamson DO 2 [facility]. [address] [place] [address] PCP - General Family Medicine 09/14/23 Claudia Horn APRN [address] [place] [address] Advanced Practice Nurse 08/16/18 Vicenta Raymond DO [facility] [address] [place] [address] Consulting Physician Obstetrics & Gynecology 09/25/21 Gus Chowdary MD #2 [facility] [address] [place] [address] Consulting Physician Colon and Rectal Surgery 07/23/22 Virginie Reyes, RN [place] Nurse Erection Shop Supervisor 09/14/23 09/14/23 Virginie Reyes, RN [place] Nurse Erection Shop Supervisor 11/19/23 11/29/23 Virginie Reyes, RN [place] Nurse Erection Shop Supervisor 12/07/23 05/15/24 Kelley Lopez, END LATHE OPERATOR, COURSE DEVELOPER #2 [facility], [address] [place] [address] Nurse Practitioner Advanced Practice Nurse 12/09/23 02/22/24 Virginie Reyes RN [place] Nurse Erection Shop Supervisor 11/16/24 11/16/24 documented as of this encounter
--- OUTSIDE RECORDS SUMMARY | 2025-01-05 17:20 | XMS_ITS | Encounter Summary ---
Author Organization [facility] Address [address] [place] [address] Phone Care Team Providers Care Medical Billing Service Name Role Phone Vaughn Bradshaw MD Primary Care Provider [phone] Claudia Horn HORSE WRANGLER Unavailable Vicenta Raymond DO Unavailable Gus Chowdary MD Unavailable Kasey Williamson DO Primary Care Provider [phone] Virginie Reyes RN Unavailable Unavailable Virginie Reyes RN Unavailable Unavailable Virginie Reyes RN Unavailable Unavailable Kelley Lopez HORSE WRANGLER, PHARMACY ASSOCIATE Unavailable [phone] Virginie Reyes RN Unavailable Unavailable Reason for Visit * Reason Comments Medication Refill Encounter Details Date Type Department Care Team (Late st Contact Info) Description 11/29/2020 Refill [facility] #2 [place] [address] Vaughn Bradshaw MD #1 [place] [address] Medication Refill Social History Tobacco Use Types [...] Provider Dept 01/03/21 Appointment Vaughn Bradshaw MD [facility] Showing future appointments within next 90 days and meeting all other requirements Passed - Has an encounter in the past 6 months with a depression or anxiety visit diagnosis documented in this encounter Plan of Treatment Upcoming Encounters Date Type Department Care Team (Late st Contact Info) Description 01/10/2025 8:45 AM CDT [facility] [address], [address] [place] [address] Monae Jorgensen, HORSE WRANGLER, PHARMACY ASSOCIATE #2 [facility] 205 [place] [address] Aishwarya Deluca, PT [place] Discharge Disposition: Discharged to home or Selfcare 01/19/2025 8:40 AM CDT Office Visit 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 COVID - 19 Confirmed 03/31/2021 03/31/2021 022 12:16 AM POTATO CHIP COOKER MACHINE COVID - 19 01/14/2022 01/14/2022 01/15/2022 7:59 AM CDT Respiratory Rule-Out 01/14/2022 01/14/2022 022 8:08 AM CDT COVID - 19 11/15/2023 11/15/2023 11/15/2023 11:4 7 PM CDT VRE 08/18/2024 08/18/2024 Assessment Noted Time PHQ-9 Depression Total Score: 0 10/04/19 21 9:00 AM CDT documented as of this encounter Care Teams Medical Billing Service Relationship Specialty Start Date End Date Vaughn Bradshaw MD PCP - General Family Medicine 05/18/18 08/26/23 Kasey Williamson DO 2 [facility] [address] [place] [address] PCP - General Family Medicine 09/14/23 Claudia Horn APRN [address] [place] [address] Advanced Practice Nurse 08/16/18 Vicenta Raymond DO [facility] [address] [place] [address] Consulting Physician Obstetrics & Gynecology 09/25/21 Gus Chowdary MD #2 [facility] [address] [place] [address] Consulting Physician Colon and Rectal Surgery 07/23/22 Virginie Reyes RN [place] Nurse Plastic Surgeon 09/14/23 09/14/23 Virginie Reyes, RN [place] Nurse Plastic Surgeon 11/19/23 11/29/23 Virginie Reyes, RN [place] Nurse Plastic Surgeon 12/07/23 05/15/24 Kelley Lopez APRN, PHARMACY ASSOCIATE #2 [facility] [address] [place] [address] Nurse Practitioner Advanced Practice Nurse 12/09/23 02/22/24 Virginie Reyes, RN [place] Nurse Plastic Surgeon 11/16/24 11/16/24 documented as of this encounter
--- OUTSIDE RECORDS SUMMARY | 2025-01-05 17:20 | XMS_ITS | Encounter Summary ---
Author Organization [facility] Address [address] [place] [address] Care Team Providers Care Welding Machine Operator Electro Gas Name Role Phone Kasey Williamson DO Primary Care Provider Melany Kuhn RN Unavailable Unavailable Encounter Details Date Type Department Care Team (Late Contact Info) Description 09/05/2018 Lab Requisition [facility] Care Pathology Lab [address] [place] [address] Beth Osullivan MD [address] [place] [address] Social History Tobacco Use Types Packs/Day Years Used Date Smoking Tobacco: Never Assessed Comments Unknown Sex and Gender Information Value Date Recorded Sex Assigned at Not on file Legal Sex Female 12:53 PM SEAT TRIMMER Gender Identity Not on file Sexual Orientation Not on file documented as of this encounter Plan of Treatment Upcoming Encounters Date Type Department Care Team (Late Contact Info) Description 01/18/2025 10:00 AM CDT Office Visit [facility] - Sleep Services [address] [phone] Mohan Alvarez MD [address] [facility] [address] [place] [address] 02/01/2025 12:30 PM SEAT TRIMMER Appointment [facility] [address] [place] [phone] Jorge Tran MD [address] [place] [phone] 02/01/2025 2:30 PM SEAT TRIMMER Office Visit [facility] - GI [address] [place] [address], [place] [phone] Jorge Tran MD [address] [place] [phone] 02/12/2025 11:00 AM SEAT TRIMMER Office Visit [facility] - Endocrinology [address] [place] [address], [place] [phone] Phoebe Joseph MD [address] [place] [address] [place] [address] documented as of this encounter Procedures Procedure Name Priority Date/Time Associated Diagnosis Comments BONE MARROW BIOPSY (STL) Routine 09/02/2018 9:00 AM CDT documented in this encounter Results * BONE MARROW BIOPSY (STL) (09/02/2018 9:00 AM CDT) Case Report Bone Marrow Patholog y Report Case: [id number] Authorizing Provider: Beth Osullivan MD Collected: 09/02/2018 09:00 AM Pathologist: Marii Sims MD Received: 09/05/2018 03:01 PM Specimens: A) - Bone Marrow Core, - B) - Bone Marrow Clot, - C) - Blood Peripheral, 19- D) - Bone Marrow Aspirate, 09/06/2018 1:56 PM CDT [facility] PATHOLOGY LAB Final Diagnosis Bone marrow, aspirate, clot section, and core biopsy: - Normocellular marrow with maturing trilineage hematopoiesis. - No evidence of lymphoma or high-grade myeloid neoplasm. - See description. Peripheral blood smear: - Pancytopenia. - See description. 09/06/2018 1:56 PM [facility] at 1356 CDT AP Comment Overall, the bone marrow specimen is normocellular for age with maturing trilineage hematopoiesis and no evidence of lymphoma, a high-grade myeloid neoplasm, or significant dyspoiesis. Concurrent bone marrow flow cytometry ([id number]) demonstrates no evidence of non-Hodgkin lymphoma or a high-grade myeloid neoplasm. As no clonal or infiltrative process is identified in the marrow, other etiologies which may cause pancytopenia (including infectious, autoimmune/inflammato ry conditions, and nutritional deficiencies) should be further investigated. Correlation with clinical findings and relevant cytogenetic/molecular testing is required. KR/NW 09/06/2018 1:56 PM [facility] Peripheral Smear Description Outside CBC [...] seen. Platelet morphology: normal. 09/06/2018 1:56 PM [facility] Bone Marrow Aspirate Differential count [...] smears, but are paucicellular. 09/06/2018 1:56 PM [facility] Bone Marrow Core Biopsy and [...] scant marrow particles present. 09/06/2018 1:56 PM [facility] Flow Cytometry Summary Concurrent bone marrow flow cytometry ([id number]) demonstrates no evidence of non-Hodgkin lymphoma or a high-grade myeloid neoplasm. 09/06/2018 1:56 PM [facility] Clinical History 52 year old woman with pancytopenia. 09/06/2018 1:56 PM [facility] Materials Received Received are 19 slides and 2 blocks labeled as [id number] along with the outside pathology report. The materials originate from [facility], [facility], [address] [place] [address]. All materials are returned to the referring institution, along with a copy of our final report. 09/06/2018 1:56 PM [facility] Disclaimer The performance characteristics of all immunohistochemical and indirect immunofluorescence stains (if any) cited in this report were determined by the Histopathology Laboratory of [facility]. Some of these tests were developed by [...] attending (teaching) pathologist. 09/06/2018 1:56 PM CDT [facility] Embedded Images 09/06/2018 1:56 PM CDT [facility] Pathology/Cytology SPECIMEN FROM BONE [...] ORDERA BLES Final Result Performing Organization Address City/State/[facility] Co de Phone Number [facility] PATH[facility]Y LAB [address] [phone] documented in this encounter Visit Diagnoses Not on filedocumented in this encounter Additional Health Concerns Infection Onset Date Last Indicated Resolved Time COVID-19 Under Investigation 06/06/2024 06/06/2024 06/06/2024 9:54 AM CDT documented as of this encounter Care Teams Welding Machine Operator Electro Gas Relationship Specialty Start Date End Date Kasey Williamson DO [address] [place] [phone] PCP - General Family Medicine 12/27/23 Melany Kuhn, RN Registered Nurse Hepatology 05/03/24 06/19/24 documented as of this encounter
--- OUTSIDE RECORDS SUMMARY | 2025-01-05 17:20 | XMS_ITS | Encounter Summary ---
Author Organization [facility] Address [address] [place] [address] Phone Care Team Providers Care Hemodialysis Lab Technician Name Role Phone Vaughn Bradshaw MD Primary Care Provider [phone] Claudia Horn JEWEL BLOCKER AND SAWYER Unavailable [phone] Vicenta Raymond DO Unavailable [phone] Gus Chowdary MD Unavailable Kasey Williamson DO Primary Care Provider Virginie Reyes RN Unavailable Unavailable Virginie Reyes RN Unavailable Unavailable Virginie Reyes RN Unavailable Unavailable Kelley Lopez JEWEL BLOCKER AND SAWYER, COAL CAGER Unavailable [phone] Virginie Reyes RN Unavailable Unavailable Reason for Visit * Reason Comments Medication Refill Encounter Details Date Type Department Care Team (Late st Contact Info) Description 03/27/2022 Refill [facility] [address] [place] [address] Vaughn Bradshaw MD [address] [place] [address] Medication Refill Social History Tobacco Use Types [...] [facility] 04/21/21 Telemedicine Monae Jorgensen APRN, COAL CAGER Kyleamee Alfonso Showing recent visits within past 365 days and meeting all other requirements Future Appointments Date Type Provider Dept 06/04/22 Appointment Vaughn Bradshaw MD [facility] Showing future appointments within next 90 days and meeting all other requirements EMS SUPPORT OFFICER documented in this encounter Plan of Treatment Upcoming Encounters Date Type Department Care Team (Late st Contact Info) Description 01/10/2025 8:45 AM CDT Physical [facility] [address] [facility], [facility] [address] [place] [address] Monae Jorgensen APRN, COAL CAGER #2 [facility] [address] [place] [address] Aishwarya Deluca, PT [place] Discharge Disposition: Discharged to home or Selfcare 01/19/2025 8:40 AM CDT Office Visit [facility] - Family Medicine [facility] [address] [place] [address] Kasey Williamson DO 2 [facility] [address] [place] [address] documented as of this encounter Visit Diagnoses [...] documented as of this encounter Care Teams Hemodialysis Lab Technician Relationship Specialty Start Date End Date Vaughn Bradshaw MD PCP - General Family Medicine 05/18/18 08/26/23 Kasey Williamson DO 2 [facility] [address] [place] [address] PCP - General Family Medicine 09/14/23 Claudia Horn, JEWEL BLOCKER AND SAWYER [address] [place] [address] Advanced Practice Nurse 08/16/18 Vicenta Raymond DO [facility] [place] [address] [place] [address] Consulting Physician Obstetrics & Gynecology 09/25/21 Gus Chowdary MD #[address] [facility] [address] [place] [address] Consulting Physician Colon and Rectal Surgery 07/23/22 Virginie Reyes, RN [place] Nurse Airport Maintenance Chief 09/14/23 09/14/23 Virginie Reyes, RN [place] Nurse Airport Maintenance Chief 11/19/23 11/29/23 Virginie Reyes, RN [place] Nurse Airport Maintenance Chief 12/07/23 05/15/24 Kelley Lopez, JEWEL BLOCKER AND SAWYER, COAL CAGER #2 [facility] [address] [place] [address] Nurse Practitioner Advanced Practice Nurse 12/09/23 02/22/24 Virginie Reyes, RN [place] Nurse Airport Maintenance Chief 11/16/24 11/16/24 documented as of this encounter
--- OUTSIDE RECORDS SUMMARY | 2025-01-05 17:20 | XMS_ITS | Encounter Summary ---
Author Organization [facility] Address [address] [place] [address] Phone Care Team Providers Care Aircraft Maintenance Manager Name Role Phone Vaughn Bradshaw MD Primary Care Provider [phone] Claudia Horn DITCH INSPECTOR Unavailable [phone] Vicenta Raymond DO Unavailable Gus Chowdary MD Unavailable Kasey Williamson DO Primary Care Provider [phone] Virginie Reyes RN Unavailable Unavailable Virginie Reyes RN Unavailable Unavailable Virginie Reyes RN Unavailable Unavailable Kelley Lopez DITCH INSPECTOR, SENIOR CONTRACT SPECIALIST Unavailable [phone] Virginie Reyes RN Unavailable Unavailable Reason for Visit * Reason Comments Medication Refill Encounter Details Date Type Department Care Team (Late st Contact Info) Description 12/26/2021 Refill [facility] [address] [place] [address] Vaughn Bradshaw MD [address] [place] [address] Medication Refill Social History Tobacco Use Types [...] MM Misc [Pharmacy Med Name: [id number] PARVEZ]200 Pen Needle 3 Sig: USE DIRECTED FOUR TIMES DAILY Diabetic Supplies Protocol Failed - 12/26/2021 3:54 AM Failed - Active on medication list Passed - Visit with relevant provider in past 6 months Recent Visits Date Type Provider Dept 12/16/21 Office Visit Vauhgn Bradshaw MD [facility] 11/04/21 Office Visit Vaughn Bradshaw MD [facility] 07/04/21 Office Visit Vaughn Bradshaw MD [facility] Showing recent visits within past 182 days and meeting all other requirements Future Appointments Date Type Provider Dept 01/13/22 Appointment Vaughn Bradshaw MD [facility] Showing future appointments within next 90 days and meeting all other requirements documented in this encounter Plan of Treatment Upcoming Encounters Date Type Department Care Team (Late st Contact Info) Description 01/10/2025 8:45 AM CDT [facility] [address] [facility], [place] [address] [place] [address] Monae Jorgensen APRN, SENIOR CONTRACT SPECIALIST #2 [facility] [address] [place] [address] Aishwarya Deluca, PT [place] Discharge Disposition: Discharged to home or Selfcare 01/19/2025 8:40 AM CDT Office Visit [facility] - Family Medicine - [place] [address] [place] [address] Kasey Williamson, DO 2 [facility] [address] [place], [place] [id number] documented as of this encounter Visit Diagnoses [...] as of this encounter Care Teams Aircraft Maintenance Manager Relationship Specialty Start Date End Date Vaughn Bradshaw MD PCP - General Family Medicine 05/18/18 08/26/23 Kasey Williamson DO 2 [facility] [address] [place] [address] PCP - General Family Medicine 09/14/23 Claudia Horn APRN [address] [place] [address] Advanced Practice Nurse 08/16/18 Vicenta Raymond DO [facility] [address] [place] [address] Consulting Physician Obstetrics & Gynecology 09/25/21 Gus Chowdary MD #2 [facility] [address] [place] [address] Consulting Physician Colon and Rectal Surgery 07/23/22 Virginie Reyes, RN [place] Nurse Chemical Production Engineer 09/14/23 09/14/23 Virginie Reyes, RN [place] Nurse Chemical Production Engineer 11/19/23 11/29/23 Virginie Reyes, RN [place] Nurse Chemical Production Engineer 12/07/23 05/15/24 Kelley Lopez APRN, SENIOR CONTRACT SPECIALIST #2 [facility] [address] [place] [address] Nurse Practitioner Advanced Practice Nurse 12/09/23 02/22/24 Virginie Reyes, RN [place] Nurse Chemical Production Engineer 11/16/24 11/16/24 documented as of this encounter
--- OUTSIDE RECORDS SUMMARY | 2025-01-05 17:20 | XMS_ITS | Encounter Summary ---
Author Organization [facility] Address [address] [place] [address] Phone Care Team Providers Care Forming Roll Operator Name Role Phone Vaughn Bradshaw MD Primary Care Provider [phone] Claudia Horn WOMEN'S SOCCER COACH Unavailable Vicenta Raymond DO Unavailable [phone] Gus Chowdary MD Unavailable Kasey Williamson DO Primary Care Provider [phone] Virginie Reyes RN Unavailable Unavailable Virginie Reyes RN Unavailable Unavailable Virginie Reyes RN Unavailable Unavailable Kelley Lopez WOMEN'S SOCCER COACH, SYRUP MIXER HELPER Unavailable [phone] Virginie Reyes RN Unavailable Unavailable Reason for Visit * Reason Comments Medication Refill Encounter Details Date Type Department Care Team (Late st Contact Info) Description 04/03/2022 Refill [facility] Family [facility] [address] [place] [address] Vaughn Bradshaw MD [address] [place] [address] Medication Refill Social History Tobacco Use Types [...] [facility] 04/21/21 Telemedicine Monae Jorgensen APRN, SYRUP MIXER HELPER Joselin Alfonso Showing recent visits within past 365 days and meeting all other requirements Future Appointments Date Type Provider Dept 06/04/22 Appointment Vaughn Bradshaw MD [facility] Showing future appointments within next 90 days and meeting all other requirements HER OF THE VISUALLY IMPAIRED documented in this encounter Plan of Treatment Upcoming Encounters Date Type Department Care Team (Late st Contact Info) Description 01/10/2025 8:45 AM CDT [facility] [address] [facility], [facility] [address] [place] [address] Monae Jorgensen, WOMEN'S SOCCER COACH, SYRUP MIXER HELPER #2 [facility] [address] [place] [address] Aishwarya Deluca, PT [place] Discharge Disposition: Discharged to home or Selfcare 01/19/2025 8:40 AM CDT Office Visit [facility] - Family Medicine [facility] [address] [place] [address] Kasey Williamson DO 2 [facility] [address] [place] [address] documented as of this encounter Visit Diagnoses Not on filedocumented in this encounter Additional Health Concerns Infection Onset Date Last Indicated Resolved Time COVID - 19 11/15/2023 11/15/2023 11/15/2023 11:4 7 PM CDT VRE 08/18/2024 08/18/2024 Assessment Noted Time PHQ-9 Depression Total Score: 0 11/05/19 22 9:00 AM CDT documented as of this encounter Care Teams Forming Roll Operator Relationship Specialty Start Date End Date Vaughn Bradshaw MD PCP - General Family Medicine 05/18/18 08/26/23 Kasey Williamson DO 2 [facility] [address] [place] [address] PCP - General Family Medicine 09/14/23 Claudia Horn, WOMEN'S SOCCER COACH [address] [place] [address] Advanced Practice Nurse 08/16/18 Vicenta Raymond DO [facility] [place] [address] [place] [address] Consulting Physician Obstetrics & Gynecology 09/25/21 Gus Chowdary MD #[address] [facility] [address] [place] [address] Consulting Physician Colon and Rectal Surgery 07/23/22 Virginie Reyes, RN [place] Nurse Director Airport Operations 09/14/23 09/14/23 Virginie Reyes, RN [place] Nurse Director Airport Operations 11/19/23 11/29/23 Virginie Reyes, RN [place] Nurse Director Airport Operations 12/07/23 05/15/24 Kelley Lopez, WOMEN'S SOCCER COACH, SYRUP MIXER HELPER #2 [facility] [address] [place] [address] Nurse Practitioner Advanced Practice Nurse 12/09/23 02/22/24 Virginie Reyes, RN [place] Nurse Director Airport Operations 11/16/24 11/16/24 documented as of this encounter
--- OUTSIDE RECORDS SUMMARY | 2025-01-05 17:20 | XMS_ITS | Encounter Summary ---
Author Organization [facility] Address [address] [place] [address] Phone Care Team Providers Care Commodities Clerk Name Role Phone Vaughn Bradshaw MD Primary Care Provider [phone] Claudia Horn SOLDERING MACHINE SETTER Unavailable [phone] Vicenta Raymond DO Unavailable [phone] Gus Chowdary MD Unavailable Kasey Williamson DO Primary Care Provider Virginie Reyes RN Unavailable Unavailable Virginie Reyes RN Unavailable Unavailable Virginie Reyes RN Unavailable Unavailable Kelley Lopez SOLDERING MACHINE SETTER, VP SOFTWARE ENGINEERING Unavailable [phone] Virginie Reyes RN Unavailable Unavailable Reason for Visit * Reason Comments Medication Refill Encounter Details Date Type Department Care Team (Late st Contact Info) Description 10/20/2022 Refill [facility] #2 [place] [address] Vaughn Bradshaw MD #1 [place] [address] Medication Refill Social History Tobacco Use Types [...] [facility] 200 [facility], [facility] [address] [place] [address] Monae Jorgensen, SOLDERING MACHINE SETTER, VP SOFTWARE ENGINEERING #2 [facility] [address] [place] [address] Aishwarya Deluca, PT [place] Discharge Disposition: Discharged to home or Selfcare 01/19/2025 8:40 AM CDT Office Visit [facility] Family [facility] #[address] [place] [address] Kasey Williamson DO 2 [facility] [address] [address] documented as of this encounter Visit Diagnoses Diagnosis Anxiety and depression Dysthymic disorder documented in this encounter Additional Health Concerns Infection Onset Date Last Indicated Resolved Time COVID - 19 11/15/2023 11/15/2023 11/15/2023 11:4 7 PM CDT VRE 08/18/2024 08/18/2024 Assessment Noted Time PHQ-9 Depression Total Score: 0 11/05/19 9:00 AM CDT documented as of this encounter Care Teams Commodities Clerk Relationship Specialty Start Date End Date Vaughn Bradshaw MD PCP - General Family Medicine 05/18/18 08/26/23 Kasey Williamson DO [address] [address] PCP - General Family Medicine 09/14/23 Claudia Horn, SOLDERING MACHINE SETTER [address] [place] [address] Advanced Practice Nurse 08/16/18 Vicenta Raymond DO ONE [facility]ESSIONAL [address] [address] Consulting Physician Obstetrics & Gynecology 09/25/21 Gus Chowdary MD #[address] [address] Consulting Physician Colon and Rectal Surgery 07/23/22 Virginie Reyes RN [place] Nurse Map And Chart Mounter 09/14/23 09/14/23 Virginie Reyes, RN [place] Nurse Map And Chart Mounter 11/19/23 11/29/23 Virginie Reyes RN [place] Nurse Map And Chart Mounter 12/07/23 05/15/24 Kelley Lopez, SOLDERING MACHINE SETTER, VP SOFTWARE ENGINEERING #2 [facility], [address] [place] [address] Nurse Practitioner Advanced Practice Nurse 12/09/23 02/22/24 Virginie Reyes RN [place] Nurse Map And Chart Mounter 11/16/24 11/16/24 documented as of this encounter
--- OUTSIDE RECORDS SUMMARY | 2025-01-05 17:20 | XMS_ITS | Encounter Summary ---
Author Organization [facility] Address [address] [place] [address] Phone Care Team Providers Care Household Cook Name Role Phone Vaughn Bradshaw MD Primary Care Provider [phone] Claudia Horn AUTO TRANSMISSION MECHANIC Unavailable Vicenta Raymond DO Unavailable Gus Chowdary MD Unavailable Kasey Williamson DO Primary Care Provider [phone] Virginie Reyes RN Unavailable Unavailable Virginie Reyes RN Unavailable Unavailable Virginie Reyes RN Unavailable Unavailable Kelley Lopez AUTO TRANSMISSION MECHANIC, OPERATIONS MANAGER ASSISTANT Unavailable [phone] Virginie Reyes RN Unavailable Unavailable Reason for Visit * Reason Comments Medication Refill Encounter Details Date Type Department Care Team (Late st Contact Info) Description 07/04/2022 Refill [facility] Family Medicine [facility] #2 [place] [address] Vaughn Bradshaw MD #1 [place] [address] Medication Refill Social History Tobacco Use Types [...] Description 01/10/2025 8:45 AM CDT [facility] [address], [place] [address] [place] [address] Monae Jorgensen, AUTO TRANSMISSION MECHANIC, OPERATIONS MANAGER ASSISTANT #2 [facility] [address] [place] [address] Aishwarya Deluca, PT [place] Discharge Disposition: Discharged to home or Selfcare 01/19/2025 8:40 AM CDT Office Visit [facility] - Family Medicine - [place] [address] [place] [address] Kasey Williamson DO 2 [facility] [address] [place] [address] documented as of this encounter Visit Diagnoses Diagnosis Anxiety and depression Dysthymic disorder documented in this encounter Additional Health Concerns Infection Onset Date Last Indicated Resolved Time COVID - 19 11/15/2023 11/15/2023 11/15/2023 11:4 7 PM CDT VRE 08/18/2024 08/18/2024 Assessment Noted Time PHQ-9 Depression Total Score: 0 11/05/19 9:00 AM CDT documented as of this encounter Care Teams Household Cook Relationship Specialty Start Date End Date Vaughn Bradshaw MD PCP - General Family Medicine 05/18/18 08/26/23 Kasey Williamson DO 2 [facility] [address] [address] PCP - General Family Medicine 09/14/23 Claudia Horn APRN [address] [place] [address] Advanced Practice Nurse 08/16/18 Vicenta Raymond DO [facility] [address] [address] Consulting Physician Obstetrics & Gynecology 09/25/21 Gus Chowdary MD #[address] [address] Consulting Physician Colon and Rectal Surgery 07/23/22 Virginie Reyes RN [place] Nurse Communication Consultant 09/14/23 09/14/23 Virginie Reyes RN [place] Nurse Communication Consultant 11/19/23 11/29/23 Virginie Reyes, RN [place] Nurse Communication Consultant 12/07/23 05/15/24 Kelley Lopez, AUTO TRANSMISSION MECHANIC, OPERATIONS MANAGER ASSISTANT #2 [facility], [address] [place] [address] Nurse Practitioner Advanced Practice Nurse 12/09/23 02/22/24 Virginie Reyes, RN [place] Nurse Communication Consultant 11/16/24 11/16/24 documented as of this encounter
--- OUTSIDE RECORDS SUMMARY | 2025-01-05 17:20 | XMS_ITS | Encounter Summary ---
Author Organization [facility] Address [address] [place] [address] Phone Care Team Providers Care Preforms Laminator Name Role Phone Vaughn Bradshaw MD Primary Care Provider [phone] Claudia Horn FIRST SAMPLER Unavailable [phone] Vicenta Raymond DO Unavailable Gus Chowdary MD Unavailable Kasey Williamson DO Primary Care Provider [phone] Virginie Reyes RN Unavailable Unavailable Virginie Reyes RN Unavailable Unavailable Virginie Reyes RN Unavailable Unavailable Kelley Lopez FIRST SAMPLER, RESIDENT SERVICES COORDINATOR Unavailable [phone] Virginie Reyes RN Unavailable Unavailable Reason for Visit * Reason Comments Medication Refill Encounter Details Date Type Department Care Team (Late st Contact Info) Description 01/13/2022 [facility]ill [facility] #2 [place] [address] Vaughn Bradshaw MD #1 [place] [address] Medication Refill Social History Tobacco Use Types [...] Therapy [facility] [address], [facility] H[address] [place] [address] Monae Jorgensen APRN, RESIDENT SERVICES COORDINATOR #2 [facility] 205 [place] [address] Aishwarya Deluca, PT [place] Discharge Disposition: Discharged to home or Selfcare 01/19/2025 8:40 AM CDT Office Visit [facility] Family [facility] #2 [place] [address] Kasey Williamson, DO 2 [facility] [place] [address] documented as of this encounter Visit Diagnoses [...] documented as of this encounter Care Teams Preforms Laminator Relationship Specialty Start Date End Date Vaughn Bradshaw MD PCP - General Family Medicine 05/18/18 08/26/23 Kasey Williamson, DO 2 [facility] FER [facility] [address] PCP - General Family Medicine 09/14/23 Claudia Horn, FIRST SAMPLER [address] [place] [address] Advanced Practice Nurse 08/16/18 Vicenta Raymond DO [address] [place] [address] [place] [address] Consulting Physician Obstetrics & Gynecology 09/25/21 Gus Chowdary MD #2 [facility] [address] [place] [address] Consulting Physician Colon and Rectal Surgery 07/23/22 Virginie Reyes, RN [place] Nurse Sample Checker 09/14/23 09/14/23 Virginie Reyes RN [place] Nurse Sample Checker 11/19/23 11/29/23 Virginie Reyes, RN [place] Nurse Sample Checker 12/07/23 05/15/24 Kelley Lopez, FIRST SAMPLER, RESIDENT SERVICES COORDINATOR #[address] [facility], [address] [place] [address] Nurse Practitioner Advanced Practice Nurse 12/09/23 02/22/24 Virginie Reyes, RN [place] Nurse Sample Checker 11/16/24 11/16/24 documented as of this encounter
--- OUTSIDE RECORDS SUMMARY | 2025-01-05 17:20 | XMS_ITS | Encounter Summary ---
Author Organization [facility] Address [address] [place] [address] Phone Care Team Providers Care Airport Refueling Handler Name Role Phone Vaughn Bradshaw MD Primary Care Provider [phone] Claudia Horn PROFESSOR CRIMINAL JUSTICE Unavailable Vicenta Raymond DO Unavailable [phone] Gus Chowdary MD Unavailable Kasey Williamson DO Primary Care Provider [phone] Virginie Reyes RN Unavailable Unavailable Virginie Reyes RN Unavailable Unavailable Virginie Reyes RN Unavailable Unavailable Kelley Lopez PROFESSOR CRIMINAL JUSTICE, LANDSCAPE SPECIALIST Unavailable [phone] Virginie Reyes RN Unavailable Unavailable Reason for Visit * Reason Comments Medication Refill Encounter Details Date Type Department Care Team (Late st Contact Info) Description 05/05/2022 Refill [facility] #2 [place] [address] Vaughn Bradshaw MD #1 [place] [address] Medication Refill Social History Tobacco Use Types [...] 90 days and meeting all other requirements FACTURING OPERATIONS MANAGER documented in this encounter Plan of Treatment Upcoming Encounters Date Type Department Care Team (Late st Contact Info) Description 01/10/2025 8:45 AM CDT [facility] 200 [facility] H1 [place] [address] Monae Jorgensen APRN, LANDSCAPE SPECIALIST #2 [facility] 205 [place] [address] Aishwarya Deluca, PT [place] Discharge Disposition: Discharged to home or Selfcare 01/19/2025 8:40 AM CDT Office Visit [facility] - Family Medicine [facility] #2 [place] [address] Kasey Williamson DO [address] [facility] 205 [place] [address] documented as of this encounter Visit Diagnoses [...] documented as of this encounter Care Teams Airport Refueling Handler Relationship Specialty Start Date End Date Vaughn Bradshaw MD PCP - General Family Medicine 05/18/18 08/26/23 Kasey Williamson DO 2 [facility] 205 [place] [address] PCP - General Family Medicine 09/14/23 Claudia Horn APRN [address] [place] [address] Advanced Practice Nurse 08/16/18 Vicenta Raymond DO [address] [place] [address] [place] [address] Consulting Physician Obstetrics & Gynecology 09/25/21 Gus Chowdary MD #2 [facility] 305 [place] [address] Consulting Physician Colon and Rectal Surgery 07/23/22 Virginie Reyes, RN [place] Nurse Wellness Manager 09/14/23 09/14/23 Virginie Reyes, RN [place] Nurse Wellness Manager 11/19/23 11/29/23 Virginie Reyes, RN [place] Nurse Wellness Manager 12/07/23 05/15/24 Kelley Lopez, PROFESSOR CRIMINAL JUSTICE, LANDSCAPE SPECIALIST #2 [facility], [facility] [address] [place] [address] Nurse Practitioner Advanced Practice Nurse 12/09/23 02/22/24 Virginie Reyes, RN [place] Nurse Wellness Manager 11/16/24 11/16/24 documented as of this encounter
--- OUTSIDE RECORDS SUMMARY | 2025-01-05 17:20 | XMS_ITS | Encounter Summary ---
Author Organization [facility] Address [address] [facility] [place] [address] Care Team Providers Care Property Administrator Name Role Phone Kasey Williamson DO Primary Care Provider [phone] Reason for Visit * Reason Onset Date Comments Medication Prior Auth Request 01/03/2025 Encounter Details Date Type Department Care Team (Late st Contact Info) Description 01/03/2025 Telephone [facility] - [address] [place] [address], [place] [address] Jorge Tran MD [facility]5 [place] [address] Medication Prior Auth Request Social History Tobacco Use Types Packs/Day [...] Recorded Patient Health Questionnaire-2 Score 2 01/11/2023 [facility] Occupat ional [facility] - Occupational Stress [...] were you homeless or living in a fdc (including now)? No 08/19/2024 Comments No Sex and Gender Information Value Date Recorded Sex Assigned at Not on file Legal Sex Female 12:53 PM CORK MOLDER Gender Identity Not on file Sexual Orientation [...] Roque Napier RN documented in this encounter Miscellaneous Notes * Telephone Encounter - Marques Esparza - 01/03/2025 10:32 AM CDT Medication Prior Authorization Medication: Heplisav-B 20MCG/0.5ML Status: Approved through 03/21/2026 Submitted via: Latent (Hunter:[email or web address]) Insurance: [employer] Approval Letter has been scanned into media. documented in this encounter Plan of Treatment Upcoming Encounters Date Type Department Care Team (Late st Contact Info) Description 01/18/2025 10:00 AM CDT Office Visit [facility] - Sleep Services [address] [id number] Mohan Alvarez MD 1034 [facility] 550 [place] [address] 02/01/2025 12:30 PM CORK MOLDER Appointment [facility] [address] MRI [address] [place] [address] Jorge Tran MD [address] [place] [address] 02/01/2025 2:30 PM CORK MOLDER Office Visit [facility] - GI [address] [place] [address], [place] [address] Jorge Tran MD [facility]5 [place] [address] 02/12/2025 11:00 AM CORK MOLDER Office Visit [facility] - Endocrinology [address] [place] [address], [place] [address] Phoebe Joseph MD [address] [place] [address] 2L [place] [address] documented as of this encounter Goals Goal Patient Goal Type Associated Problems Recent Progress Patient-Stated? Author Medication Management General On track( 025 11:16 AM CDT) No Fidelia Lainez, RN Note: Expected end date: 1 year Interventions: Take all medications as prescribed Safety General On track( 025 11:16 AM CDT) eMlany Wood, RN Note: Expected end date: ongoing Interventions: Your nurse will assess your risk for falls/injury each visit Make and keep follow-up appointments General On track( 025 8:34 AM CDT) Melany Wood, FAYE documented as of this encounter Visit Diagnoses Not on filedocumented in this encounter Care Teams Property Administrator Relationship Specialty Start Date End Date Kasey Williamson DO [address] [place] [address] PCP - General Family Medicine 12/27/23 documented as of this encounter
--- OUTSIDE RECORDS SUMMARY | 2025-01-05 17:20 | XMS_ITS | Encounter Summary ---
Author Organization [facility] Address [address] [place] [address] Phone Care Team Providers Care Cost Estimator Name Role Phone Vaughn Bradshaw MD Primary Care Provider Claudia Horn COMPUTER REPAIR TECHNICIAN Unavailable [phone] Vicenta Raymond DO Unavailable [phone] Gus Chowdayr MD Unavailable Kasey Williamson DO Primary Care Provider [phone] Virginie Reyes RN Unavailable Unavailable Virginie Reyes RN Unavailable Unavailable Virginie Reyes RN Unavailable Unavailable Kelley Lopez COMPUTER REPAIR TECHNICIAN, BUTTON PUSHER Unavailable [phone] Virginie Reyes RN Unavailable Unavailable Reason for Visit * Reason Comments Medication Refill Encounter Details Date Type Department Care Team (Late st Contact Info) Description 09/12/2021 Refill [facility] #2 [place] [address] Vaughn Bradshaw MD #1 [place] [address] Medication Refill Social History Tobacco Use Types [...] [place] 12/09/20 Office Visit [facility] [place] 11/28/20 Telemedicine Vaughn [facility] MD [facility] 10/03/20 Office Visit Vaughn Bradshaw MD [facility] Showing recent visits within past 730 days [...] 01/10/2025 8:45 AM CDT Physical Therapy [facility] Rehab at [facility] 200 [facility] H1 [place] [address] Monae Jorgensen APRN, BUTTON PUSHER #2 [facility] 205 [place] [address] Aishwarya Deluca, PT [place] Discharge Disposition: Discharged to home or Selfcare 01/19/2025 8:40 AM CDT Office Visit [facility] - Family Medicine - [place] #2 [place] [address] Kasey Williamson, DO 2 [facility] 205 [place] [address] documented as of this encounter Visit Diagnoses [...] documented as of this encounter Care Teams Cost Estimator Relationship Specialty Start Date End Date Vaughn Bradshaw MD PCP - General Family Medicine 05/18/18 08/26/23 Kasey Williamson DO 2 [facility]. [address] [place] [address] PCP - General Family Medicine 09/14/23 Claudia Horn APRN [address] [place] [address] Advanced Practice Nurse 08/16/18 Vicenta Raymond DO ONE PROFESSIONAL [facility] 250 [place] [address] Consulting Physician Obstetrics & Gynecology 09/25/21 Gus Chowdary MD #2 [facility] [address] [place] [address] Consulting Physician Colon and Rectal Surgery 07/23/22 Virginie Reyes, RN [place] Nurse Puller Out 09/14/23 09/14/23 Virginie Reyes, RN [place] Nurse Puller Out 11/19/23 11/29/23 Virginie Reyes, RN [place] Nurse Puller Out 12/07/23 05/15/24 Kelley Lopez, COMPUTER REPAIR TECHNICIAN, BUTTON PUSHER #2 [facility], [facility] 305 [place] [address] Nurse Practitioner Advanced Practice Nurse 12/09/23 02/22/24 Virginie Reyes RN [place] Nurse Puller Out 11/16/24 11/16/24 documented as of this encounter
--- OUTSIDE RECORDS SUMMARY | 2025-01-05 17:20 | XMS_ITS | Encounter Summary ---
Author Organization [facility] Address [address] [place] [address] Phone Care Team Providers Care Telecommunications Operator Name Role Phone Vaughn Bradshaw MD Primary Care Provider [phone] Claudia Horn COLD MILL SUPERVISOR Unavailable Vicenta Raymond DO Unavailable Gus Chowdary MD Unavailable Kasey Williamson DO Primary Care Provider [phone] Virginie Reyes RN Unavailable Unavailable Virginie Reyes RN Unavailable Unavailable Virginie Reyes RN Unavailable Unavailable Kelley Lopez COLD MILL SUPERVISOR, DELI MANAGER Unavailable [phone] Virginie Reyes RN Unavailable Unavailable Reason for Visit * Reason Comments Medication Refill Encounter Details Date Type Department Care Team (Late st Contact Info) Description 06/23/2022 Refill [facility] #2 [place] [address] Vaughn Bradshaw MD #1 [place] [address] Medication Refill Social History Tobacco Use Types [...] Provider Dept 05/27/22 Office Visit Vivian Tucker, COLD MILL SUPERVISOR, DELI MANAGER [facility] 02/03/22 Office Visit Vaughn Bradshaw MD [facility] [place] 12/16/21 Office Visit Vaughn Bradshaw MD [facility] 11/04/21 Office Visit Vaughn Bradshaw MD [facility] [...] Dept 05/27/22 Office Visit Vivian Tucker APRN, FIGUEROA [facility] 02/03/22 Office Visit Vaughn Bradshaw MD [...] 06/16/2022 90 45 Tablet Vaughn Bradshaw MD [facility] #... PRAMIPEXOLE 0.5MG TABLETS 03/20/2022 90 45 Each Vaughn Bradshaw MD [facility] documented in this encounter Plan of Treatment Upcoming Encounters Date Type Department Care Team (Late st Contact Info) Description 01/10/2025 8:45 AM CDT Physical [facility] 200 [facility] H1 [place] [address] Monae Jorgensen APRN, DELI MANAGER #2 [facility] 205 [place] [address] Aishwarya [place], PT [place] Discharge Disposition: Discharged to home or Selfcare 01/19/2025 8:40 AM CDT Office Visit [facility] - Family Medicine - [place] #2 [place] [address] Kasey Williamson, DO 2 [facility] 205 [place] [address] documented as of this encounter Visit Diagnoses [...] documented as of this encounter Care Teams Telecommunications Operator Relationship Specialty Start Date End Date Vaughn Bradshaw MD PCP - General Family Medicine 05/18/18 08/26/23 Kasey Williamson DO 2 [facility] [address] [place] [address] PCP - General Family Medicine 09/14/23 Claudia Horn APRN [address] [place] [address] Advanced Practice Nurse 08/16/18 Vicenta Raymond DO ONE PROFESSIONAL [address] [address] Consulting Physician Obstetrics & Gynecology 09/25/21 Gus Chowdary MD #2 [facility] 305 [place] [address] Consulting Physician Colon and Rectal Surgery 07/23/22 Virginie Reyes, RN [place] Nurse Planner Intern 09/14/23 09/14/23 Virginie Reyes, RN [place] Nurse Planner Intern 11/19/23 11/29/23 Virginie Reyes, RN [place] Nurse Planner Intern 12/07/23 05/15/24 Kelley Lopez APRN, DELI MANAGER #2 [facility], [facility] [address] [place] [address] Nurse Practitioner Advanced Practice Nurse 12/09/23 02/22/24 Virginie Reyes, RN [place] Nurse Planner Intern 11/16/24 11/16/24 documented as of this encounter
--- OUTSIDE RECORDS SUMMARY | 2025-01-05 17:20 | XMS_ITS | Encounter Summary ---
Author Organization [facility] Address [address] [place] [address] Phone Care Team Providers Care Retort Kiln Burner Name Role Phone Vaughn Bradshaw MD Primary Care Provider Claudia Horn TWO WAY RADIO TECHNICIAN Unavailable Vicenta Raymond DO Unavailable [phone] Gus Chowdary MD Unavailable Kasey Williamson DO Primary Care Provider [phone] Virginie Reyes RN Unavailable Unavailable Virginie Reyes RN Unavailable Unavailable Virginie Reyes RN Unavailable Unavailable Kelley Lopez TWO WAY RADIO TECHNICIAN, BEATER ENGINEER HELPER Unavailable [phone] Virginie Reyes RN Unavailable Unavailable Reason for Visit * Reason Comments Medication Refill Encounter Details Date Type Department Care Team (Late st Contact Info) Description 12/10/2021 Refill [facility] Family [facility] #2 [place] [address] Vaughn Bradshaw MD #1 [place] [address] Medication Refill Social History Tobacco Use Types [...] Description 01/10/2025 8:45 AM CDT [facility] 200 [facility], [facility] H1 [place] [address] Monae Jorgensen, TWO WAY RADIO TECHNICIAN, BEATER ENGINEER HELPER #[address] [facility] 205 [place] [address] Aishwarya [place]uca, PT [place] Discharge Disposition: Discharged to home or Selfcare 01/19/2025 8:40 AM CDT Office Visit [facility] - Family Medicine - [place] #2 [place] [address] Kasey Williamson, DO 2 [facility]. 205 [place] [address] documented as of this encounter Visit Diagnoses [...] documented as of this encounter Care Teams Retort Kiln Burner Relationship Specialty Start Date End Date Vaughn Bradshaw MD PCP - General Family Medicine 05/18/18 08/26/23 Kasey Williamson DO 2 [facility] 205 [place] [address] PCP - General Family Medicine 09/14/23 Claudia Horn APRN [address] [place] [address] Advanced Practice Nurse 08/16/18 Vicenta Raymond DO ONE PROFESSIONAL [facility] 250 [place] [address] Consulting Physician Obstetrics & Gynecology 09/25/21 Gus Chowdary MD #[address] [facility] 305 [place] [address] Consulting Physician Colon and Rectal Surgery 07/23/22 Virginie Reyes, RN [place] Nurse Security Expert 09/14/23 09/14/23 Virginie Reyes, RN [place] Nurse Security Expert 11/19/23 11/29/23 Virginie Reyes, RN [place] Nurse Security Expert 12/07/23 05/15/24 Kelley Lopez APRN, BEATER ENGINEER HELPER #2 [facility] 305 [place] [address] Nurse Practitioner Advanced Practice Nurse 12/09/23 02/22/24 Virginie Reyes RN [place] Nurse Security Expert 11/16/24 11/16/24 documented as of this encounter
--- OUTSIDE RECORDS SUMMARY | 2025-01-05 17:20 | XMS_ITS | Encounter Summary ---
Author Organization [facility] Address [address] [place] [address] Phone Care Team Providers Care Hatchery Worker Name Role Phone Vaughn Bradhsaw MD Primary Care Provider [phone] Claudia Horn MACHINE LEATHER TRIMMER Unavailable Vicenta Raymond DO Unavailable [phone] Gus Chowdary MD Unavailable Kasey Williamson DO Primary Care Provider [phone] Virginie Reyes RN Unavailable Unavailable Virginie Reyes RN Unavailable Unavailable Virginie Reyes RN Unavailable Unavailable Kelley Lopez MACHINE LEATHER TRIMMER, BIT SHARPENER Unavailable [phone] Virginie Reyes RN Unavailable Unavailable Reason for Visit * Reason Comments Medication Refill Encounter Details Date Type Department Care Team (Late st Contact Info) Description 02/04/2022 Refill [facility] #2 [place] [address] Vaughn Bradshaw MD #1 [place] [address] Medication Refill Social History Tobacco Use Types [...] Coronavirus/COVID-19? No / Unsure 02/02/2022 11:51 AM BONE DENSITY TECHNICIAN documented as of this encounter Miscellaneous [...] Dept 02/03/22 Office Visit Vaughn Bradshaw MD [facility] 12/16/21 Office Visit Vaughn Bradshaw MD [facility] 11/04/21 [facility] Office Visit Vaughn Bradshaw MD [facility] 04/21/21 Telemedicine Monae Jorgensen APRN, FIGUEROA [facility] 02/24/21 Office Visit Vaughn Bradshaw MD [facility] Showing recent visits within past 365 days and meeting all other requirements Future Appointments No visits were found meeting these conditions. Showing future appointments within next 90 days and meeting all other requirements DENSITY TECHNICIAN documented in this encounter Plan of Treatment Upcoming Encounters Date Type Department Care Team (Late st Contact Info) Description 01/10/2025 8:45 AM CDT Physical Therapy [facility] Rehab at [facility] 200 [facility], [facility] H[address] [place] [address] Monae Jorgensen APRN, BIT SHARPENER #2 [facility] 205 [place] [address] Aishwarya [place], PT [place] Discharge Disposition: Discharged to home or Selfcare 01/19/2025 8:40 AM CDT Office Visit [facility] Group - Family Medicine [facility] #2 [place] [address] Kasey Williamson, DO 2 [facility] 205 [place] [address] documented as of this encounter Visit Diagnoses Not on filedocumented in this encounter Additional Health Concerns Infection Onset Date Last Indicated Resolved Time COVID - 19 11/15/2023 11/15/2023 11/15/2023 11:4 7 PM CDT VRE 08/18/2024 08/18/2024 Assessment Noted Time PHQ-9 Depression Total Score: 0 11/05/19 22 9:00 AM CDT documented as of this encounter Care Teams Hatchery Worker Relationship Specialty Start Date End Date Vaughn Bradshaw MD PCP - General Family Medicine 05/18/18 08/26/23 Kasey Williamson DO 2 [facility]ER [facility]. 205 [place] [address] PCP - General Family Medicine 09/14/23 Claudia Horn APRN [address] [place] [address] Advanced Practice Nurse 08/16/18 Vicenta Raymond DO ONE PROFESSIONAL [facility] 250 [place] [address] Consulting Physician Obstetrics & Gynecology 09/25/21 Gus Chowdary MD #2 [facility] 305 [place] [address] Consulting Physician Colon and Rectal Surgery 07/23/22 Virginie Reyes, RN [place] Nurse Table Games Supervisor 09/14/23 09/14/23 Virginie Reyes, RN [place] Nurse Table Games Supervisor 11/19/23 11/29/23 Virginie Reyes, RN [place] Nurse Table Games Supervisor 12/07/23 05/15/24 Kelley Lopez, MACHINE LEATHER TRIMMER, BIT SHARPENER #2 [facility], [facility] [address] [place] [address] Nurse Practitioner Advanced Practice Nurse 12/09/23 02/22/24 Virginie Reyes RN [place] Nurse Table Games Supervisor 11/16/24 11/16/24 documented as of this encounter
--- OUTSIDE RECORDS SUMMARY | 2025-01-05 17:20 | XMS_ITS | Encounter Summary ---
Author Organization [facility] Address [address] [place] [address] Phone Care Team Providers Care Observer Helper Name Role Phone Vaughn Bradshaw MD Primary Care Provider [phone] Claudia Horn LABORATORY CUREMAN Unavailable [phone] Vicenta Raymond DO Unavailable Gus Chowdary MD Unavailable Kasey Williamson DO Primary Care Provider [phone] Virginie Reyes RN Unavailable Unavailable Virginie Reyes RN Unavailable Unavailable Virginie Reyes RN Unavailable Unavailable Kelley Lopez LABORATORY CUREMAN, MANAGER CITY Unavailable [phone] Virginie Reyes RN Unavailable Unavailable Reason for Visit * Reason Comments Medication Refill Encounter Details Date Type Department Care Team (Late st Contact Info) Description 10/19/2020 [facility]ill [facility] #2 [place] [address] Vaughn Bradshaw MD #1 [place] [address] Medication Refill Social History Tobacco Use Types [...] hyperglycemia, with long-term current use of insulin ([facility]) [facility] Family [facility] Vaughn Gutierrez MD 1 year ago Type 2 diabetes mellitus with hyperglycemia, with long-term current use of insulin ([facility]) [facility] Family [facility] Vaughn Gutierrez MD 1 year ago Eczema, unspecified type [facility] Vaughn Gutierrez MD 1 year ago Uncontrolled type 2 diabetes mellitus with hyperglycemia ([facility]) [facility] Diabetes mellitus due to underlying condition with hyperosmolarity without coma, without long-term current use of insulin ([facility]) [facility] Upcoming Appointments Future Appointments In 2 weeks [id number] Mammography, [facility] In 2 months Vaughn [facility]shaw MD [facility] REAL ESTATE INSTRUCTOR - Recent and Past Visits Recent Visits Date Type Provider Dept 10/03/20 Office Visit Vaughn Bradshaw MD [facility] Showing recent visits within past 460 days with a meds authorizing provider and meeting all other requirements Future Appointments Date Type Provider Dept 01/03/21 Appointment [facility] MD [facility] [place] Showing future appointments within next 90 days with a meds authorizing provider and meeting all other requirements documented in this encounter Plan of Treatment Upcoming Encounters Date Type Department Care Team (Late st Contact Info) Description 01/10/2025 8:45 AM CDT Physical Therapy [facility] Rehab at [facility] [address] [facility] H[address] [place] [address] Monae Jorgensen, LABORATORY CUREMAN, MANAGER [place] #[address] [address] Aishwarya Deluca, PT [place] Discharge Disposition: Discharged to home or Selfcare 01/19/2025 8:40 AM CDT [facility] [place] [address] Kasey Williamson, DO 2 [facility] [address] [place] [address] documented as of this encounter Visit Diagnoses Diagnosis Other migraine without status migrainosus, not intractable documented in this encounter Additional Health Concerns Infection Onset Date Last Indicated Resolved Time COVID - 19 03/31/2021 03/31/2021 03/31/2021 9:59 PM COAL CHEMIST COVID - 19 Confirmed 03/31/2021 03/31/2021 022 12:16 AM COAL CHEMIST COVID - 19 01/14/2022 01/14/2022 01/15/2022 7:59 AM CDT Respiratory Rule-Out 01/14/2022 01/14/2022 022 8:08 AM CDT COVID - 19 11/15/2023 11/15/2023 11/15/2023 11:4 7 PM CDT VRE 08/18/2024 08/18/2024 Assessment Noted Time PHQ-9 Depression Total Score: 0 10/04/19 21 9:00 AM CDT documented as of this encounter Care Teams Observer Helper Relationship Specialty Start Date End Date Vaughn Bradshaw MD PCP - General Family Medicine 05/18/18 08/26/23 Kasey Williamson DO 2 [address] [place] [address] PCP - General Family Medicine 09/14/23 Claudia Horn, LABORATORY CUREMAN [address] [place] [address] Advanced Practice Nurse 08/16/18 Vicenta Raymond DO [address] [place] [address] [place] [address] Consulting Physician Obstetrics & Gynecology 09/25/21 Gus Chowdary MD #2 [facility] [address] [place] [address] Consulting Physician Colon and Rectal Surgery 07/23/22 Virginie Reyes RN [place] Nurse Offset Printing Operator 09/14/23 09/14/23 Virginie Reyes RN [place] Nurse Offset Printing Operator 11/19/23 11/29/23 Virginie Reyes RN [place] Nurse Offset Printing Operator 12/07/23 05/15/24 Kelley Lopez, LABORATORY CUREMAN, MANAGER [place] #2 [facility], [address] [place] [address] Nurse Practitioner Advanced Practice Nurse 12/09/23 02/22/24 Virginie Reyes RN [place] Nurse Offset Printing Operator 11/16/24 11/16/24 documented as of this encounter
--- OUTSIDE RECORDS SUMMARY | 2025-01-05 17:20 | XMS_ITS | Encounter Summary ---
Author Organization [facility] Address [address] [place] [address] Phone Care Team Providers Care Pipe Testing Technician Name Role Phone Vaughn Bradshaw MD Primary Care Provider [phone] Claudia Horn LINE HAUL OWNER OPERATOR Unavailable [phone] Vicenta Raymond DO Unavailable [phone] Gus Chowdary MD Unavailable Kasey Williamson DO Primary Care Provider [phone] Virginie Reyes RN Unavailable Unavailable Virginie Reyes RN Unavailable Unavailable Virginie Reyes RN Unavailable Unavailable Kelley Lopez LINE HAUL OWNER OPERATOR, ARCHITECTURE TECHNICIAN Unavailable [phone] Virginie Reyes RN Unavailable Unavailable Reason for Visit * Reason Comments Medication Refill Encounter Details Date Type Department Care Team (Late st Contact Info) Description 09/12/2021 Refill [facility] #2 [place] [address] Monae Jorgensen, LINE HAUL OWNER OPERATOR, ARCHITECTURE TECHNICIAN #[address] [address] Medication Refill Social History Tobacco [...] Pending Prescriptions Disp Refills ergocalciferol (VITAMIN D) 70362 UNIT Capsule [Pharmacy Med Name: VITAMIN D2 [...] Dept 07/04/21 Office Visit Vaughn Bradshaw MD [facility] [place] 04/21/21 Telemedicine Monae Jorgensen APRN, FIGUEROA [facility] [place] 02/24/21 Office Visit Vaughn Bradshaw MD [facility] 01/20/21 Office Visit Vaughn Bradshaw MD [facility] 12/09/20 [facility] 11/28/20 Telemedicine Vaughn Bradshaw MD [facility] 10/03/20 Office Visit Vaughn Bradshaw MD [facility] Showing recent visits within past 365 days and meeting all other requirements Future Appointments No visits were found meeting these conditions. Showing future appointments within next 90 days and meeting all other requirements documented in this encounter Plan of Treatment Upcoming Encounters Date Type Department Care Team (Late st Contact Info) Description 01/10/2025 8:45 AM CDT Physical Therapy [facility] Rehab at [facility] [address] [place] [address], [facility] [address] [place] [address] Monae Jorgensen, LINE HAUL OWNER OPERATOR, ARCHITECTURE TECHNICIAN #2 [facility] 205 [place] [address] Aishwarya Deluca, PT [place] Discharge Disposition: Discharged to home or Selfcare 01/19/2025 8:40 AM CDT Office Visit [facility] Medical Group - Family Medicine - [place] [address] [place] [address] Kasey Williamson, DO 2 [facility] [address] [place] [address] documented as of this encounter Visit Diagnoses [...] documented as of this encounter Care Teams Pipe Testing Technician Relationship Specialty Start Date End Date Vaughn Bradshaw MD PCP - General Family Medicine 05/18/18 08/26/23 Kasey Williamson DO 2 [facility] [address] [place] [address] PCP - General Family Medicine 09/14/23 Claudia Horn APRN [address] [place] [address] Advanced Practice Nurse 08/16/18 Vicenta Raymond DO ONE [address]ESSION[address] [address] Consulting Physician Obstetrics & Gynecology 09/25/21 Gus Chowdary MD #2 [facility] [address] [place] [address] Consulting Physician Colon and Rectal Surgery 07/23/22 Virginie Reyes, RN [place] Nurse Cabinet Assembler 09/14/23 09/14/23 Virginie Reyes, RN [place] Nurse Cabinet Assembler 11/19/23 11/29/23 Virginie Reyes, RN [place] Nurse Cabinet Assembler 12/07/23 05/15/24 Kelley Lopez APRN, ARCHITECTURE TECHNICIAN #2 [facility], [facility] [address] [place] [address] Nurse Practitioner Advanced Practice Nurse 12/09/23 02/22/24 Virginie Reyes, RN [place] Nurse Cabinet Assembler 11/16/24 11/16/24 documented as of this encounter
--- OUTSIDE RECORDS SUMMARY | 2025-01-05 17:20 | XMS_ITS | Encounter Summary ---
Author Organization [facility] Address [address] [place] [address] Phone Care Team Providers Care Rigger Third Name Role Phone Vaughn Bradshaw MD Primary Care Provider [phone] Claudia Horn SHALE PLANER OPERATOR HELPER Unavailable [phone] Vicenta Raymond DO Unavailable Gus Chowdary MD Unavailable Kasey Williamson DO Primary Care Provider [phone] Virginie Reyes RN Unavailable Unavailable Virginie Reyes RN Unavailable Unavailable Virginie Reyes RN Unavailable Unavailable Kelley Lopez SHALE PLANER OPERATOR HELPER, SALES AND PRODUCTION MANAGER Unavailable [phone] Virginie Reyes RN Unavailable Unavailable Reason for Visit * Reason Comments Medication Refill Encounter Details Date Type Department Care Team (Late st Contact Info) Description 01/29/2022 Refill [facility] #2 [place] [address] Vaughn Bradshaw MD #1 [place] [address] Medication Refill Social History Tobacco Use Types [...] Prerna Mann RN - 01/29/2022 8:30 AM POT PRESS OPERATOR Medication failed the protocol, provider [...] with Buspirone for at least 6 months PRESS OPERATOR documented in this encounter Plan of Treatment Upcoming Encounters Date Type Department Care Team (Late st Contact Info) Description 01/10/2025 8:45 AM CDT [facility] 200 [facility], [facility] [address] [place] [address] Monae Jorgensen, SHALE PLANER OPERATOR HELPER, SALES AND PRODUCTION MANAGER #2 [facility] [address] [place] [address] Aishwarya Deluca, PT [place] Discharge Disposition: Discharged to home or Selfcare 01/19/2025 8:40 AM CDT Office Visit [facility] - Family Medicine [facility] #2 [place] [address] Kasey Williamson DO 2 [facility] [address] [place] [address] documented as of this encounter Visit Diagnoses Diagnosis Anxiety and depression Dysthymic disorder documented in this encounter Additional Health Concerns Infection Onset Date Last Indicated Resolved Time COVID - 19 11/15/2023 11/15/2023 11/15/2023 11:4 7 PM CDT VRE 08/18/2024 08/18/2024 Assessment Noted Time PHQ-9 Depression Total Score: 0 11/05/19 9:00 AM CDT documented as of this encounter Care Teams Rigger Third Relationship Specialty Start Date End Date Vaughn Bradshaw MD PCP - General Family Medicine 05/18/18 08/26/23 Kasey Williamson DO 2 [facility] [address] [place] [address] PCP - General Family Medicine 09/14/23 Claudia Horn, SHALE PLANER OPERATOR HELPER [address] [place] [address] Advanced Practice Nurse 08/16/18 Vicenta Raymond DO [address] [place] [address] Consulting Physician Obstetrics & Gynecology 09/25/21 Gus Chowdary MD #2 [facility] [address] [place] [address] Consulting Physician Colon and Rectal Surgery 07/23/22 Virginie Reyes, RN [place] Nurse Placer Miner 09/14/23 09/14/23 Virginie Reyes, RN [place] Nurse Placer Miner 11/19/23 11/29/23 Virginie Reyes, RN [place] Nurse Placer Miner 12/07/23 05/15/24 Kelley Lopez, SHALE PLANER OPERATOR HELPER, SALES AND PRODUCTION MANAGER #2 [facility], [facility] [address] [place] [address] Nurse Practitioner Advanced Practice Nurse 12/09/23 02/22/24 Virginie Reyes, RN [place] Nurse Placer Miner 11/16/24 11/16/24 documented as of this encounter
--- OUTSIDE RECORDS SUMMARY | 2025-01-05 17:20 | XMS_ITS | Encounter Summary ---
Author Organization [facility] Address [address] [place] [address] Phone Care Team Providers Care Band Cutting Machine Operator Name Role Phone Vaughn Bradshaw MD Primary Care Provider [phone] Claudia Horn CANDY FEEDER Unavailable [phone] Vicenta Raymond DO Unavailable Gus Chowdary MD Unavailable Kasey Williamson DO Primary Care Provider [phone] Virginie Reyes RN Unavailable Unavailable Virginie Reyes RN Unavailable Unavailable Virginie Reyes RN Unavailable Unavailable Kelley Lopez CANDY FEEDER, FRUIT PRESERVER Unavailable [phone] Virginie Reyes RN Unavailable Unavailable Reason for Visit * Reason Comments Medication Refill Encounter Details Date Type Department Care Team (Late st Contact Info) Description 09/18/2021 Refill [facility] #2 [place] [address] Vaughn Bradshaw MD #1 [place] [address] Medication Refill Social History Tobacco Use Types [...] [facility] 11/28/20 Telemedicine Vaughn Bradshaw MD [facility] 10/03/20 Office Visit Vaughn Bradshaw MD [facility] Showing recent visits within past 365 [...] Description 01/10/2025 8:45 AM CDT Physical Therapy [facility] Rehab at [address], [facility] H[address] [place] [address] Monae Jorgensen, CANDY FEEDER, FRUIT PRESERVER #2 [facility] 205 [place] [address] Aishwarya Deluca, PT [place] Discharge Disposition: Discharged to home or Selfcare 01/19/2025 8:40 AM CDT Office Visit [facility] - Family [facility] #2 [place] [address] Kasey Williamson DO 2 [facility] 205 [place] [address] documented as of this encounter Visit Diagnoses [...] documented as of this encounter Care Teams Band Cutting Machine Operator Relationship Specialty Start Date End Date Vaughn Bradshaw MD PCP - General Family Medicine 05/18/18 08/26/23 Kasey Williamson DO 2 [facility] [address] [place] [address] PCP - General Family Medicine 09/14/23 Claudia Horn, CANDY FEEDER [address] [place] [address] Advanced Practice Nurse 08/16/18 Vicenta Raymond DO ONE [address] [place] [address] Consulting Physician Obstetrics & Gynecology 09/25/21 Gus Chowdary MD #[address] [facility] [address] [address] Consulting Physician Colon and Rectal Surgery 07/23/22 Virginie Reyes RN [place] Nurse Party Plan Sales Host/Hostess 09/14/23 09/14/23 Virginie Reyes RN [place] Nurse Party Plan Sales Host/Hostess 11/19/23 11/29/23 Virginie Reyes RN [place] Nurse Party Plan Sales Host/Hostess 12/07/23 05/15/24 Kelley Lopez, CANDY FEEDER, FRUIT PRESERVER #2 [facility], [address] [place] [address] Nurse Practitioner Advanced Practice Nurse 12/09/23 02/22/24 Virginie Reyes RN [place] Nurse Party Plan Sales Host/Hostess 11/16/24 11/16/24 documented as of this encounter
--- OUTSIDE RECORDS SUMMARY | 2025-01-05 17:20 | XMS_ITS | Encounter Summary ---
Author Organization [facility] Address [address] [place] [address] Phone Care Team Providers Care Career Services Manager Name Role Phone Vaughn Bradshaw MD Primary Care Provider Claudia Horn HVAC PROJECT MANAGER Unavailable Vicenta Raymond DO Unavailable [phone] Gus Chowdary MD Unavailable Kasey Williamson DO Primary Care Provider Virginie Reyes RN Unavailable Unavailable Virginie Reyes RN Unavailable Unavailable Virginie Reyes RN Unavailable Unavailable Kelley Lopez HVAC PROJECT MANAGER, WEAVER APPRENTICE Unavailable [phone] Virginie Reyes RN Unavailable Unavailable Reason for Visit * Reason Comments Medication Refill Encounter Details Date Type Department Care Team (Late st Contact Info) Description 08/28/2021 Refill [facility] #2 [place] [address] Vaughn Bradshaw MD #1 [place] [address] Medication Refill Social History Tobacco Use Types [...] [facility] 04/21/21 Telemedicine Monae Jorgensen APRN, FIGUEROA [facility] Showing recent visits within [...] Description 01/10/2025 8:45 AM CDT [facility] 200 [facility] H1 [place] [address] Monae Jorgensen APRN, WEAVER APPRENTICE #2 [facility] 205 [place] [address] Aishwarya Deluca, PT [place] Discharge Disposition: Discharged to home or Selfcare 01/19/2025 8:40 AM CDT Office Visit [facility] Medical Group - Family Medicine [facility] #2 [place] [address] Kasey Williamson DO 2 [facility]. [address] [place] [address] documented as of this encounter Visit Diagnoses [...] documented as of this encounter Care Teams Career Services Manager Relationship Specialty Start Date End Date Vaughn Bradshaw MD PCP - General Family Medicine 05/18/18 08/26/23 Kasey Williamson DO 2 [facility] [address] [place] [address] PCP - General Family Medicine 09/14/23 Claudia Horn APRN [address] [place] [address] Advanced Practice Nurse 08/16/18 Vicenta Raymond, DO ONE PROFESSIONAL [facility] [address] [place] [address] Consulting Physician Obstetrics & Gynecology 09/25/21 Gus Chowdary MD #2 [facility] [address] [place] [address] Consulting Physician Colon and Rectal Surgery 07/23/22 Virginie Reyes, RN [place] Nurse Rn Urology 09/14/23 09/14/23 Virginie Reyes, RN [place] Nurse Rn Urology 11/19/23 11/29/23 Virginie Reyes, RN [place] Nurse Rn Urology 12/07/23 05/15/24 Kelley Lopez, HVAC PROJECT MANAGER, WEAVER APPRENTICE #2 [facility], [address] [place] [address] Nurse Practitioner Advanced Practice Nurse 12/09/23 02/22/24 Virginie Reyes, RN [place] Nurse Rn Urology 11/16/24 11/16/24 documented as of this encounter
--- OUTSIDE RECORDS SUMMARY | 2025-01-05 17:21 | XMS_ITS | Encounter Summary ---
Author Organization [facility] Address [address] [place] [address] Phone Care Team Providers Care Stock Worker And Deliverer Name Role Phone Vaughn Bradshaw MD Primary Care Provider [phone] Claudia Horn SPRAYING MACHINE OPERATOR Unavailable [phone] Vicenta Raymond DO Unavailable [phone] Gus Chowdary MD Unavailable Kasey Williamson DO Primary Care Provider Virginie Reyes RN Unavailable Unavailable Virginie Reyes RN Unavailable Unavailable Virginie Reyes RN Unavailable Unavailable Kelley Lopez SPRAYING MACHINE OPERATOR, DIRECTOR OF DIRECT MARKETING Unavailable [phone] Virginie Reyes RN Unavailable Unavailable Encounter Details Date Type Department Care Team (Latest Contact Info) Description 01/21/2023 Transcribe [facility] 1 [place] [address] Maria Teresa Myers, RN [place] [...] Description 01/10/2025 8:45 AM CDT [facility] 200 [facility], [facility] [address] [place] [address] Monae Jorgensen, SPRAYING MACHINE OPERATOR, DIRECTOR OF DIRECT MARKETING #2 [facility] 205 [place] [address] Aishwarya Deluca, PT [place] Discharge Disposition: Discharged to home or Selfcare 01/19/2025 8:40 AM CDT Office Visit [facility] - Family Medicine [facility] #2 [place] [address] Kasey Williamson, DO 2 [facility] [address] [place] [address] documented as of this encounter Visit Diagnoses Diagnosis Bicipital tendonitis of left shoulder- Primary documented in this encounter Additional Health Concerns Infection Onset Date Last Indicated Resolved Time COVID - 19 11/15/2023 11/15/2023 11/15/2023 11:4 7 PM CDT VRE 08/18/2024 08/18/2024 Assessment Noted Time PHQ-9 Depression Total Score: 0 12/08/19 23 8:37 AM CDT documented as of this encounter Care Teams Stock Worker And Deliverer Relationship Specialty Start Date End Date Vaughn Bradshaw MD PCP - General Family Medicine 05/18/18 08/26/23 Kasey Williamson DO 2 [facility] FER [facility]. [address] [place] [address] PCP - General Family Medicine 09/14/23 Claudia Horn APRN [address] [place] [address] Advanced Practice Nurse 08/16/18 Vicenta Raymond DO ONE PROFESSIONAL [address] [address] Consulting Physician Obstetrics & Gynecology 09/25/21 Gus Chowdary MD #2 [facility] [address] [place] [address] Consulting Physician Colon and Rectal Surgery 07/23/22 Virginie Reyes, FAYE [place] Nurse Aircraft Steel Fabricator 09/14/23 09/14/23 Virginie Reyes, RN [place] Nurse Aircraft Steel Fabricator 11/19/23 11/29/23 Virginie Reyes, RN [place] Nurse Aircraft Steel Fabricator 12/07/23 05/15/24 Kelley Lopez APRN, DIRECTOR OF DIRECT MARKETING #2 [facility], [facility] [address] [place] [address] Nurse Practitioner Advanced Practice Nurse 12/09/23 02/22/24 Virginie Reyes, RN [place] Nurse Aircraft Steel Fabricator 11/16/24 11/16/24 documented as of this encounter
--- OUTSIDE RECORDS SUMMARY | 2025-01-05 17:21 | XMS_ITS | Encounter Summary ---
Author Organization [facility] Address [address] [place] [address] Phone Care Team Providers Care Restuarant Crew Worker Name Role Phone Vaughn Bradshaw MD Primary Care Provider [phone] Claudia Horn CEMETERY MANAGER Unavailable Vicenta Raymond DO Unavailable [phone] Gus Chowdary MD Unavailable Kasey Williamson DO Primary Care Provider Virginie Reyes RN Unavailable Unavailable Virginie Reyes RN Unavailable Unavailable Virginie Reyes RN Unavailable Unavailable Kelley Lopez CEMETERY MANAGER, SSIS DEVELOPER Unavailable [phone] Virginie Reyes RN Unavailable Unavailable Reason for Visit * Reason Onset Date Comments Sinus Pain 02/12/2021 Encounter Details Date Type Department Care Team (Late st Contact Info) Description 02/12/2021 Nurse Triage [facility] [address] [place] [address] Vaughn Bradshaw MD [address] [place] [address] Sinus Pain Social History Tobacco Use Types [...] COVID-19? No / Unsure 02/12/2021 11:05 AM AV SPECIALIST documented as of this encounter Miscellaneous Notes * Telephone Encounter - Allison Del Rio RN - 02/17/2021 9:40 AM AV SPECIALIST Sent patient Tidalwave Trader message to let her know SPECIALIST * Telephone Encounter - Vaughn Bradshaw MD - 02/16/2021 9:15 PM CST Can go to prompt care or be seen. SPECIALIST * Telephone Encounter - Rhianna Rivers - 02/12/2021 11:02 AM CST Reason for Disposition Sinus congestion as part of a cold, present < 10 days Protocols used: SINUS PAIN OR [id number] S: Sinus pain, cough, B: Sinus pain/congestion [...] without having to see first. Pharmacy verified. SPECIALIST documented in this encounter Plan of Treatment Upcoming Encounters Date Type Department Care Team (Late st Contact Info) Description 01/10/2025 8:45 AM CDT [facility] [address], [address] [place] [address] Monae Jorgensen, CEMETERY MANAGER, SSIS DEVELOPER #2 [facility] [address] [place] [address] Aishwarya Deluca, PT [place] Discharge Disposition: Discharged to home or Selfcare 01/19/2025 8:40 AM CDT Office Visit [facility] - [facility] #2 [place] [address] Kasey Williamson, DO 2 [facility]. [address] [place] [address] documented as of this encounter Visit Diagnoses Not on filedocumented in this encounter Additional Health Concerns Infection Onset Date Last Indicated Resolved Time COVID - 19 03/31/2021 03/31/2021 03/31/2021 9:59 PM AV SPECIALIST COVID - 19 Confirmed 03/31/2021 03/31/2021 022 12:16 AM AV SPECIALIST COVID - 19 01/14/2022 01/14/2022 01/15/2022 7:59 AM CDT Respiratory Rule-Out 01/14/2022 01/14/2022 022 8:08 AM CDT COVID - 19 11/15/2023 11/15/2023 11/15/2023 11:4 7 PM CDT VRE 08/18/2024 08/18/2024 Assessment Noted Time PHQ-9 Depression Total Score: 0 10/04/19 21 9:00 AM CDT documented as of this encounter Care Teams Restuarant Crew Worker Relationship Specialty Start Date End Date Vaughn Bradshaw MD PCP - General Family Medicine 05/18/18 08/26/23 Kasey Williamson DO 2 [facility]. [address] [place] [address] PCP - General Family Medicine 09/14/23 Claudia Horn APRN [address] [place] [address] Advanced Practice Nurse 08/16/18 Vicenta Raymond DO ONE [facility] [address] [place] [address] Consulting Physician Obstetrics & Gynecology 09/25/21 Gus Chowdary MD #2 [facility] [address] [place] [address] Consulting Physician Colon and Rectal Surgery 07/23/22 Virginie Reyes RN [place] Nurse Tool Coordinator 09/14/23 09/14/23 Virginie Reyes, RN [place] Nurse Tool Coordinator 11/19/23 11/29/23 Virginie Reyes, RN [place] Nurse Tool Coordinator 12/07/23 05/15/24 Kelley Lopez APRN, SSIS DEVELOPER #2 [facility] [address] [place] [address] Nurse Practitioner Advanced Practice Nurse 12/09/23 02/22/24 Virginie Reyes, RN [place] Nurse Tool Coordinator 11/16/24 11/16/24 documented as of this encounter
--- OUTSIDE RECORDS SUMMARY | 2025-01-05 17:21 | XMS_ITS | Encounter Summary ---
Author Organization [facility] Address [address] [place] [address] Phone Care Team Providers Care Annealing Furnace Operator Name Role Phone Vaughn Bradshaw MD Primary Care Provider Claudia Horn BULWARK CARPENTER Unavailable Vicenta Raymond DO Unavailable [phone] Gus Chowdary MD Unavailable Kasey Williamson DO Primary Care Provider [phone] Virginie Reyes RN Unavailable Unavailable Virginie Reyes RN Unavailable Unavailable Virginie Reyes RN Unavailable Unavailable Kelley Lopez BULWARK CARPENTER, ENROLLMENT SPECIALIST Unavailable [phone] Virginie Reyes RN Unavailable Unavailable Reason for Visit * Reason Comments Medication Refill Encounter Details Date Type Department Care Team (Late st Contact Info) Description 02/17/2023 [facility]ill [facility] #[address] [place] [address] Vaughn Bradshaw MD #1 [place] [address] Medication Refill Social History Tobacco Use Types [...] Coronavirus/COVID-19? No / Unsure 01/28/2023 6:21 AM BOOKING CLERK documented as of this encounter Miscellaneous [...] [place] 09/17/22 Office Visit Vaughn Bradshaw MD [facility] Showing recent visits within past 182 [...] Status 12/07/2022 59 (L) >=60 Final ING CLERK documented in this encounter Plan of Treatment Upcoming Encounters Date Type Department Care Team (Late st Contact Info) Description 01/10/2025 8:45 AM CDT [facility] [address] [facility], [address] [place] [address] Monae Jorgensen, BULWARK CARPENTER, ENROLLMENT SPECIALIST #2 [facility] [address] [place] [address] Aishwarya Deluca, PT [place] Discharge Disposition: Discharged to home or Selfcare 01/19/2025 8:40 AM CDT [facility] Visit [facility] - [place] [address] [place] [id number] Kasey Williamson, DO 2 [facility] [address] [place] [address] documented as of this encounter Visit Diagnoses [...] documented as of this encounter Care Teams Annealing Furnace Operator Relationship Specialty Start Date End Date Vaughn Bradshaw MD PCP - General Family Medicine 05/18/18 08/26/23 Kasey Williamson DO 2 [facility] [address] [place] [address] PCP - General Family Medicine 09/14/23 Claudia oHrn APRN [address] [place] [address] Advanced Practice Nurse 08/16/18 Vicenta Raymond DO ONE PROFESSIONAL [facility] [address] [place] [address] Consulting Physician Obstetrics & Gynecology 09/25/21 Gus Chowdary MD #2 [facility] [address] [place] [address] Consulting Physician Colon and Rectal Surgery 07/23/22 Virginie Reyes, RN [place] Nurse Cooker Operator 09/14/23 09/14/23 Virginie Reyes, RN [place] Nurse Cooker Operator 11/19/23 11/29/23 Virginie Reyes, RN [place] Nurse Cooker Operator 12/07/23 05/15/24 Kelley Lopez APRN, ENROLLMENT SPECIALIST #2 [facility], [address] [place] [address] Nurse Practitioner Advanced Practice Nurse 12/09/23 02/22/24 Virginie Reyes, RN [place] Nurse Cooker Operator 11/16/24 11/16/24 documented as of this encounter
--- OUTSIDE RECORDS SUMMARY | 2025-01-05 17:21 | XMS_ITS | Encounter Summary ---
Author Organization [facility] Address [address] [place] [address] Phone Care Team Providers Care Motorcycle Fabricator Name Role Phone Vaughn Bradshaw MD Primary Care Provider [phone] Claudia Horn KEYBOARD INSTRUMENT TUNER Unavailable [phone] Vicenta Raymond DO Unavailable [phone] Gus Chowdary MD Unavailable Kasey Williamson DO Primary Care Provider [phone] Virginie Reyes RN Unavailable Unavailable Virginie Reyes RN Unavailable Unavailable Virginie Reyes RN Unavailable Unavailable Kelley Lopez KEYBOARD INSTRUMENT TUNER, GLOBAL CATEGORY MANAGER Unavailable [phone] Virginie Reyes RN Unavailable Unavailable Reason for Visit * Reason Comments Medication Refill Encounter Details Date Type Department Care Team (Late st Contact Info) Description 04/18/2023 [facility]ill [facility] #2 [place] [address] Monae Jorgensen, KEYBOARD INSTRUMENT TUNER, GLOBAL CATEGORY MANAGER #[address] [address] Medication Refill Social History Tobacco Use Types Packs/Day Years Used Date Smoking Tobacco: Never Smokeless Tobacco: Never Alcohol Use Standard Drinks/Week Comments No 0 (1 standard drink = 0.6 oz pur e alcohol) [facility] Utilities Answer Date Recorded In the [...] attend chur ch or jain services? Never 03/21/2023 Do you belong to [...] Total Score - Questions 1-9 2 04/2023 [facility] [place] of Occupat ional Health - Occupational Stress [...] slept in a fci (including now)? No 03/21/2023 Education Answer Date [...] 03/01/2023 90 90 Each Monae Jorgensen APRN, GLOBAL CATEGORY MANAGER [facility] #... FICIAL MARBLE WORKER documented in this encounter Plan of Treatment Upcoming Encounters Date Type Department Care Team (Late st Contact Info) Description 01/10/2025 8:45 AM CDT [facility] [address] [facility], [facility] [address] [place] [address] Monae Jorgensen, KEYBOARD INSTRUMENT TUNER, GLOBAL CATEGORY MANAGER #2 [facility] [address] [place] [address] Aishwarya Deluca, PT [place] Discharge Disposition: Discharged to home or Selfcare 01/19/2025 8:40 AM CDT Office Visit [facility] - Family [facility] #2 [place] [address] Kasey Williamson DO 2 [facility] [address] [place] [address] documented as of this encounter Visit Diagnoses Diagnosis Moderate episode of recurrent major depressive disorder documented in this encounter Additional Health Concerns Infection Onset Date Last Indicated Resolved Time COVID - 19 11/15/2023 11/15/2023 11/15/2023 11:4 7 PM CDT VRE 08/18/2024 08/18/2024 Assessment Noted Time PHQ-9 Depression Total Score: 2 03/23/19 24 8:19 AM ARTIFICIAL MARBLE WORKER documented as of this encounter Care Teams Motorcycle Fabricator Relationship Specialty Start Date End Date Vaughn Bradshaw MD PCP - General Family Medicine 05/18/18 08/26/23 Kasey Williamson DO 2 [facility] [address] [place] [address] PCP - General Family Medicine 09/14/23 Claudia Horn, KEYBOARD INSTRUMENT TUNER [address] [place] [address] Advanced Practice Nurse 08/16/18 Vicenta Raymond DO [facility] [address] [place] [address] Consulting Physician Obstetrics & Gynecology 09/25/21 Gus Chowdary MD #2 [facility] [address] [place] [address] Consulting Physician Colon and Rectal Surgery 07/23/22 Virginie Reyes, RN [place] Nurse Hydrometeorologist 09/14/23 09/14/23 Virginie Reyes, RN [place] Nurse Hydrometeorologist 11/19/23 11/29/23 Virginie Reyes, RN [place] Nurse Hydrometeorologist 12/07/23 05/15/24 Kelley Lopez, KEYBOARD INSTRUMENT TUNER, GLOBAL CATEGORY MANAGER #2 [facility] [address] [place] [address] Nurse Practitioner Advanced Practice Nurse 12/09/23 02/22/24 Virginie Reyes, RN [place] Nurse Hydrometeorologist 11/16/24 11/16/24 documented as of this encounter
--- OUTSIDE RECORDS SUMMARY | 2025-01-05 17:21 | XMS_ITS | Encounter Summary ---
Author Organization [facility] Address [address] [place] [address] Phone Care Team Providers Care Internal Combustion Engine Inspector Name Role Phone Vaughn Bradshaw MD Primary Care Provider [phone] Claudia Horn SURVEY ANALYST Unavailable [phone] Vicenta Raymond DO Unavailable Gus Chowdary MD Unavailable Kasey Williamson DO Primary Care Provider [phone] Virginie Reyes RN Unavailable Unavailable Virginie Reyes RN Unavailable Unavailable Virginie Reyes RN Unavailable Unavailable Kelley Lopez SURVEY ANALYST, ADOLESCENT COUNSELOR Unavailable [phone] Virginie Reyes RN Unavailable Unavailable Reason for Visit * Reason Comments Medication Refill Encounter Details Date Type Department Care Team (Late st Contact Info) Description 06/25/2023 Refill [facility] Family [facility] #2 [place] [address] Vaughn Bradshaw MD #1 [place] [address] Medication Refill Social History Tobacco Use Types Packs/Day Years Used Date Smoking Tobacco: Never Smokeless Tobacco: Never Alcohol Use Standard Drinks/Week Comments No 0 (1 standard drink = 0.6 oz pur e alcohol) [facility] Utilities Answer Date Recorded In the [...] often do you attend chur ch or methodist services? Never 04/27/2023 Do you belong to [...] Total Score - Questions 1-9 2 04/2023 [facility] [place] of Occupat ional Health - Occupational Stress [...] 01/10/2025 8:45 AM CDT Physical Therapy [facility] at [facility] [address] [facility], [facility] [address] [place] [address] Monae Jorgensen, SURVEY ANALYST, ADOLESCENT COUNSELOR #2 [facility] [address] [place] [address] Aishwarya Deluca, PT [place] Discharge Disposition: Discharged to home or Selfcare 01/19/2025 8:40 AM CDT Office Visit [facility] - Family [facility] #2 [place] [address] Kasey Williamson DO 2 [facility] [address] [place] [address] documented as of this encounter Visit Diagnoses Diagnosis Other migraine without status migrainosus, not intractable documented in this encounter Additional Health Concerns Infection Onset Date Last Indicated Resolved Time COVID - 19 11/15/2023 11/15/2023 11/15/2023 11:4 7 PM CDT VRE 08/18/2024 08/18/2024 Assessment Noted Time PHQ-9 Depression Total Score: 2 03/23/19 24 8:19 AM SANDBLAST CARVER documented as of this encounter Care Teams Internal Combustion Engine Inspector Relationship Specialty Start Date End Date Vaughn Bradshaw MD PCP - General Family Medicine 05/18/18 08/26/23 Kasey Williamson DO 2 [facility] [address] [place] [address] PCP - General Family Medicine 09/14/23 Claudia Horn APRN [address] [place] [address] Advanced Practice Nurse 08/16/18 Vicenta Raymond DO [facility]AL [facility] [address] [place] [address] Consulting Physician Obstetrics & Gynecology 09/25/21 Gus Chowdary MD #[address] [facility] [address] [place] [address] Consulting Physician Colon and Rectal Surgery 07/23/22 Virginie Reyes, RN [place] Nurse Parts Classifier 09/14/23 09/14/23 Virginie Reyes, RN [place] Nurse Parts Classifier 11/19/23 11/29/23 Virginie Reyes, RN [place] Nurse Parts Classifier 12/07/23 05/15/24 Kelley Lopez, SURVEY ANALYST, ADOLESCENT COUNSELOR #2 [facility] [address] [place] [address] Nurse Practitioner Advanced Practice Nurse 12/09/23 02/22/24 Virginie Reyes, RN [place] Nurse Parts Classifier 11/16/24 11/16/24 documented as of this encounter
--- OUTSIDE RECORDS SUMMARY | 2025-01-05 17:21 | XMS_ITS | Encounter Summary ---
Author Organization [facility] Address [address] [place] [address] Phone Care Team Providers Care Street Photographer Name Role Phone Vaughn Bradshaw MD Primary Care Provider [phone] Claudia Horn FORGE OPERATOR HELPER Unavailable Vicenta Raymond DO Unavailable [phone] Gus Chowdary MD Unavailable Kasey Williamson DO Primary Care Provider [phone] Virginie Reyes RN Unavailable Unavailable Virginie Reyes RN Unavailable Unavailable Virginie Reyes RN Unavailable Unavailable Kelley Lopez FORGE OPERATOR HELPER, AUTOMOBILE RELOCATION ENGINEER Unavailable [phone] Virginie Reyes RN Unavailable Unavailable Reason for Visit * Reason Comments Medication Refill Encounter Details Date Type Department Care Team (Late st Contact Info) Description 04/26/2023 Refill [facility] #2 [place] [address] Vaughn Bradshaw MD #1 [place] [address] Medication Refill Social History Tobacco Use Types Packs/Day Years Used Date Smoking Tobacco: Never Smokeless Tobacco: Never Alcohol Use Standard Drinks/Week Comments No 0 (1 standard drink = 0.6 oz pur e alcohol) [facility] Utilities Answer Date Recorded In [...] attend chur ch or jainism services? Never 04/27/2023 Do you belong to any clubs o r organizations such as holiness groups, unions, fraternal or athletic groups, or [...] Total Score - Questions 1-9 2 04/2023 [facility] [place] of Occupat ional Health - Occupational Stress [...] of Assessment Author 0 04/27/2023 4:26 AM [employer], System Background * Q1: How often do you have a drink containing alcohol? Answer Date of Assessment Author Never 04/27/2023 4:26 AM [email or web address] / Netcycler System Background * Q2: How many drinks containing alcohol do you have on a typical day when you are drinking? Answer Date of Assessment Author Patient does not drink 04/27/2023 4:[address] PHOTOGRAPHER My chart, System Background * Q3: How often do you have six or more drinks on one occasion? Answer Date of Assessment Author Never 04/27/2023 4:[address] PHOTOGRAPHER [employer], System Background documented as of this encounter Miscellaneous Notes * Telephone Encounter - Maria T Alejandre Rachel RN - 04/28/2023 11:50 AM CST Needs [...] [place] 03/01/23 Office Visit Monae Jorgensen APRN, CNP [facility] 12/07/22 Office Visit Vaughn Bradshaw MD [facility] [place] 09/17/22 Office Visit Vaughn Bradshaw MD [facility] [place] 08/06/22 Office Visit Vaughn Bradshaw MD [facility] [place] 07/06/22 Office Visit Vaughn Bradshaw MD [facility] [place] 05/27/22 Office Visit Vivian Tucker APRN, FIGUEROA [facility] [place] Showing recent visits within past 365 days [...] Office Visit Monae Jorgensen APRN, CNP [facility] 03/01/23 Office Visit Monae Jorgensen APRN, CNP [facility] 12/07/22 Office Visit Vaughn Bradshaw MD [facility] [...] adjustment disorder, OCD, or PTSD visit diagnosis ET PHOTOGRAPHER documented in this encounter Plan of Treatment Upcoming Encounters Date Type Department Care Team (Late st Contact Info) Description 01/10/2025 8:45 AM CDT Physical Therapy [facility]hab at [facility] [address] [facility] [address] [place] [address] Monae Jorgensen APRN, AUTOMOBILE RELOCATION ENGINEER #2 [facility] [address] [place] [address] Aishwarya Deluca, PT [place] Discharge Disposition: Discharged to home or Selfcare 01/19/2025 8:40 AM CDT Office Visit [facility] - Family Medicine - [place] [address] [place] [address] Kasey Williamson, DO 2 [facility] [address] [place] [address] documented as of this encounter Visit Diagnoses Diagnosis Moderate episode of recurrent major depressive disorder documented in this encounter Additional Health Concerns Infection Onset Date Last Indicated Resolved Time COVID - 19 11/15/2023 11/15/2023 11/15/2023 11:4 7 PM CDT VRE 08/18/2024 08/18/2024 Assessment Noted Time PHQ-9 Depression Total Score: 2 03/23/19 8:[address] PHOTOGRAPHER documented as of this encounter Care Teams Street Photographer Relationship Specialty Start Date End Date Vaughn Bradshaw MD PCP - General Family Medicine 05/18/18 08/26/23 Kasey Williamson DO 2 [facility] [address] [place] [address] PCP - General Family Medicine 09/14/23 Claudia Horn APRN [address] [place] [address] Advanced Practice Nurse 08/16/18 Vicenta Raymond DO ONE PROFESSIONAL [address] [address] Consulting Physician Obstetrics & Gynecology 09/25/21 Gus Chowdary MD #2 [facility] [address] [place] [address] Consulting Physician Colon and Rectal Surgery 07/23/22 Virginie Reyes, FAYE [place] Nurse Laundry Helper 09/14/23 09/14/23 Virginie Reyes, RN [place] Nurse Laundry Helper 11/19/23 11/29/23 Virginie Reyes, RN [place] Nurse Laundry Helper 12/07/23 05/15/24 Kelley Lopez APRN, AUTOMOBILE RELOCATION ENGINEER #2 [facility] [address] [place] [address] Nurse Practitioner Advanced Practice Nurse 12/09/23 02/22/24 Virginie Reyes RN [place] Nurse Laundry Helper 11/16/24 11/16/24 documented as of this encounter
--- OUTSIDE RECORDS SUMMARY | 2025-01-05 17:21 | XMS_ITS | Encounter Summary ---
Author Organization [facility] Address [address] [place] [address] Phone Care Team Providers Care Channel Opener Name Role Phone Vaughn Bradshaw MD Primary Care Provider [phone] Claudia Horn LEAD SOFTWARE QA ENGINEER Unavailable Vicenta Raymond DO Unavailable Gus Chowdary MD Unavailable Kasey Williamson DO Primary Care Provider [phone] Virginie Reyes RN Unavailable Unavailable Virginie Reyes RN Unavailable Unavailable Virginie Reyes RN Unavailable Unavailable Kelley Lopez LEAD SOFTWARE QA ENGINEER, SPINDLE FRAME CARVER Unavailable [phone] Virginie Reyes RN Unavailable Unavailable Reason for Visit * Reason Comments Medication Refill Encounter Details Date Type Department Care Team (Late st Contact Info) Description 07/15/2023 [facility]ill [facility] #2 [place] [address] Vaughn Bradshaw MD #1 [place] [address] Medication Refill Social History Tobacco Use Types Packs/Day Years Used Date Smoking Tobacco: Never Smokeless Tobacco: Never Alcohol Use Standard Drinks/Week Comments No 0 (1 standard drink = 0.6 oz pur e alcohol) [facility] Utilities Answer Date Recorded In the [...] often do you attend chur ch or islam services? Never 04/27/2023 Do you belong to any clubs o r organizations such as caodaism groups, unions, fraternal or athletic groups, or [...] Total Score - Questions 1-9 2 04/2023 [facility] of Occupat ional Health - Occupational Stress [...] slept in a chcf (including now)? No 04/27/2023 Education Answer Date [...] 07/09/2023 90 45 Tablet Vaughn Bradshaw MD [facility] #... documented in this encounter Plan of Treatment Upcoming Encounters Date Type Department Care Team (Late st Contact Info) Description 01/10/2025 8:45 AM CDT Physical [facility] [address] [facility], [facility] H1 [place] [address] Monae Jorgensen, LEAD SOFTWARE QA ENGINEER, SPINDLE FRAME CARVER #2 [facility] [address] [place] [address] Aishwarya Deluca, PT [place] Discharge Disposition: Discharged to home or Selfcare 01/19/2025 8:40 AM CDT Office Visit [facility] - Family [facility] #2 [place] [address] Kasey Williamson DO [address] [address] documented as of this encounter Visit Diagnoses Not on filedocumented in this encounter Additional Health Concerns Infection Onset Date Last Indicated Resolved Time COVID - 19 11/15/2023 11/15/2023 11/15/2023 11:4 7 PM CDT VRE 08/18/2024 08/18/2024 Assessment Noted Time PHQ-9 Depression Total Score: 2 03/23/19 24 8:19 AM WEATHER CLERK documented as of this encounter Care Teams Channel Opener Relationship Specialty Start Date End Date Vaughn Bradshaw MD PCP - General Family Medicine 05/18/18 08/26/23 Kasey Williamson DO 2 [facility] [address] [place] [address] PCP - General Family Medicine 09/14/23 Claudia Horn APRN [address] [place] [address] Advanced Practice Nurse 08/16/18 Vicenta Raymond DO ONE PROFESSIONAL [facility] [address] [place] [address] Consulting Physician Obstetrics & Gynecology 09/25/21 Gus Chowdary MD #[address] [facility] [address] [place] [address] Consulting Physician Colon and Rectal Surgery 07/23/22 Virginie Reyes, RN [place] Nurse Call Center Coordinator 09/14/23 09/14/23 Virginie Reyes, RN [place] Nurse Call Center Coordinator 11/19/23 11/29/23 Virginie Reyse, RN [place] Nurse Call Center Coordinator 12/07/23 05/15/24 Kelley Lopez, LEAD SOFTWARE QA ENGINEER, SPINDLE FRAME CARVER #2 [facility] [address] [place] [address] Nurse Practitioner Advanced Practice Nurse 12/09/23 02/22/24 Virginie Reyes, RN [place] Nurse Call Center Coordinator 11/16/24 11/16/24 documented as of this encounter
--- OUTSIDE RECORDS SUMMARY | 2025-01-05 17:21 | XMS_ITS | Encounter Summary ---
Author Organization [facility] Address [address] [place] [address] Phone Care Team Providers Care Machine Taper Name Role Phone Vaughn Bradshaw MD Primary Care Provider [phone] Claudia Horn RESIDENTIAL CONSTRUCTION INSTRUCTOR Unavailable Vicenta Raymond DO Unavailable Gus Chowdary MD Unavailable Kasey Williamson DO Primary Care Provider [phone] Virginie Reyes RN Unavailable Unavailable Virginie Reyes RN Unavailable Unavailable Virginie Reyes RN Unavailable Unavailable Kelley Lopez RESIDENTIAL CONSTRUCTION INSTRUCTOR, INSURANCE DEFENSE PARALEGAL Unavailable [phone] Virginie Reyes RN Unavailable Unavailable Reason for Visit * Reason Comments Medication Refill Encounter Details Date Type Department Care Team (Late st Contact Info) Description 02/01/2023 [facility]ill [facility] #2 [place] [address] Vaughn Bradshaw MD #1 [place] [address] Medication Refill Social History Tobacco Use Types [...] Coronavirus/COVID-19? No / Unsure 01/28/2023 6:21 AM TRAFFIC INCIDENT MANAGEMENT MANAGER documented as of this encounter Miscellaneous Notes * Telephone Encounter - Maria T Alejandre RN - 02/02/2023 7:17 AM CST Name from pharmacy: SIMVASTATIN 40MG TABLETS Will file in chart as: simvastatin (ZOCOR) 40 MG Tablet The original prescription was reordered on 02/01/2023 by Vaughn Bradshaw MD. FIC INCIDENT MANAGEMENT MANAGER * Telephone Encounter - Maria T Alejandre RN - 02/01/2023 3:48 PM CST duplicate FIC INCIDENT MANAGEMENT MANAGER documented in this encounter Plan of Treatment Upcoming Encounters Date Type Department Care Team (Late st Contact Info) Description 01/10/2025 8:45 AM CDT Physical Therapy [facility] at [facility] [address], [place] [address] [place] [address] Monae Jorgensen, RESIDENTIAL CONSTRUCTION INSTRUCTOR, INSURANCE DEFENSE PARALEGAL #2 [facility] [address] [place] [address] Aishwarya Deluca, PT [place] Discharge Disposition: Discharged to home or Selfcare 01/19/2025 8:40 AM CDT Office Visit [facility] Family [facility] #2 [place] [address] Kasey Williamson DO 2 [facility] [address]ER [address] [address] documented as of this encounter Visit Diagnoses Not on filedocumented in this encounter Additional Health Concerns Infection Onset Date Last Indicated Resolved Time COVID - 19 11/15/2023 11/15/2023 11/15/2023 11:4 7 PM CDT VRE 08/18/2024 08/18/2024 Assessment Noted Time PHQ-9 Depression Total Score: 0 12/08/19 8:37 AM CDT documented as of this encounter Care Teams Machine Taper Relationship Specialty Start Date End Date Vaughn Bradshaw MD PCP - General Family Medicine 05/18/18 08/26/23 Kasey Williamson DO 2 [facility] [address] [address] PCP - General Family Medicine 09/14/23 Claudia Horn, RESIDENTIAL CONSTRUCTION INSTRUCTOR [address] [place] [address] Advanced Practice Nurse 08/16/18 Vicenta Raymond DO ONE PROFESSIONAL [address] [address] Consulting Physician Obstetrics & Gynecology 09/25/21 Gus Chowdary MD #[address] [facility] [place] [address] [place] [address] Consulting Physician Colon and Rectal Surgery 07/23/22 Virgniie Reyes, RN [place] Nurse Spring Fitter 09/14/23 09/14/23 Virginie Reyes, RN [place] Nurse Spring Fitter 11/19/23 11/29/23 Virginie Reyes, RN [place] Nurse Spring Fitter 12/07/23 05/15/24 Kelley Lopez, RESIDENTIAL CONSTRUCTION INSTRUCTOR, INSURANCE DEFENSE PARALEGAL #[address] [facility], [address] [place] [address] Nurse Practitioner Advanced Practice Nurse 12/09/23 02/22/24 Virginie Reyes, RN [place] Nurse Spring Fitter 11/16/24 11/16/24 documented as of this encounter
--- OUTSIDE RECORDS SUMMARY | 2025-01-05 17:21 | XMS_ITS | Encounter Summary ---
Author Organization [facility] Address [address] [place] [address] Phone Care Team Providers Care Leaf Stamper Name Role Phone Vaughn Bradshaw MD Primary Care Provider [phone] Claudia Horn HOT BRAIDER Unavailable Vicenta Raymond DO Unavailable Gus Chowdary MD Unavailable Kasey Williamson DO Primary Care Provider [phone] Virginie Reyes RN Unavailable Unavailable Virginie Reyes RN Unavailable Unavailable Virginie Reyes RN Unavailable Unavailable Kelley Lopez HOT BRAIDER, WIRE HARNESS DESIGN ENGINEER Unavailable [phone] Virginie Reyes RN Unavailable Unavailable Reason for Visit * Reason Comments Medication Refill Encounter Details Date Type Department Care Team (Late st Contact Info) Description 02/05/2021 Refill [facility] #2 [place] [address] Vaughn Bradshaw MD #1 [place] [address] Medication Refill Social History Tobacco Use Types [...] COVID-19? No / Unsure 02/06/2021 9:38 AM NON ACOUSTIC OPERATOR documented as of this encounter Miscellaneous [...] Questions ?? loratadine (CLARITIN) 10 MG Tablet [[id number]] 34 Status: Active Ordering user: Vaughn Bradshaw MD 01/20/211334 Authorized by: Vaughn Bradshaw MD Frequency: Daily 01/20/21 - Until Discontinued Released by: Vaughn Bradshaw MD 01/20/211334 Diagnoses Seasonal allergies [J30.2] Associated Diagnoses Seasonal allergies Pharmacy [id number] [place] [address] [address] [facility] [address] ACOUSTIC OPERATOR documented in this encounter Plan of Treatment Upcoming Encounters Date Type Department Care Team (Late st Contact Info) Description 01/10/2025 8:45 AM CDT Physical [facility] [address] [facility], [facility] [address] [place] [address] Monae Jorgensen APRN, WIRE HARNESS DESIGN ENGINEER #2 [facility] [address] [place] [address] Aishwarya Deluca, PT [place] Discharge Disposition: Discharged to home or Selfcare 01/19/2025 8:40 AM CDT Office Visit [facility] Medical Group - Family [facility] #2 [place] [address] Kasey Williamson, DO 2 [facility] [address] [place] [address] documented as of this encounter Visit Diagnoses Diagnosis Seasonal allergies Allergic rhinitis, cause unspecified documented in this encounter Additional Health Concerns Infection Onset Date Last Indicated Resolved Time COVID - 19 03/31/2021 03/31/2021 03/31/2021 9:59 PM NON ACOUSTIC OPERATOR COVID - 19 Confirmed 03/31/2021 03/31/2021 022 12:16 AM NON ACOUSTIC OPERATOR COVID - 19 01/14/2022 01/14/2022 01/15/2022 7:59 AM CDT Respiratory Rule-Out 01/14/2022 01/14/2022 022 8:08 AM CDT COVID - 19 11/15/2023 11/15/2023 11/15/2023 11:4 7 PM CDT VRE 08/18/2024 08/18/2024 Assessment Noted Time PHQ-9 Depression Total Score: 0 10/04/19 21 9:00 AM CDT documented as of this encounter Care Teams Leaf Stamper Relationship Specialty Start Date End Date Vaughn Bradshaw MD PCP - General Family Medicine 05/18/18 08/26/23 Kasey Williamson DO 2 [facility] [place] [address] [place] [address] PCP - General Family Medicine 09/14/23 Claudia Horn APRN [address] [place] [address] Advanced Practice Nurse 08/16/18 Vicenta Raymond DO ONE PROFESSIONAL [address] [address] Consulting Physician Obstetrics & Gynecology 09/25/21 Gus Chowdary MD #2 [facility] [address] [place] [address] Consulting Physician Colon and Rectal Surgery 07/23/22 Virginie Reyes, RN [place] Nurse Painting Worker 09/14/23 09/14/23 Virginie Reyes, RN [place] Nurse Painting Worker 11/19/23 11/29/23 Virginie Reyes, RN [place] Nurse Painting Worker 12/07/23 05/15/24 Kelley Lopez, HOT BRAIDER, WIRE HARNESS DESIGN ENGINEER #2 [facility] [address] [place] [address] Nurse Practitioner Advanced Practice Nurse 12/09/23 02/22/24 Virginie Reyes, RN [place] Nurse Painting Worker 11/16/24 11/16/24 documented as of this encounter
--- OUTSIDE RECORDS SUMMARY | 2025-01-05 17:21 | XMS_ITS | Encounter Summary ---
Author Organization [facility] Address [address] [place] [address] Phone Care Team Providers Care Architectural Manager Name Role Phone Vaughn Bradshaw MD Primary Care Provider [phone] Claudia Horn APICULTURIST Unavailable Vicenta Raymond DO Unavailable [phone] Gus Chowdary MD Unavailable Kasey Williamson DO Primary Care Provider [phone] Virginie Reyes RN Unavailable Unavailable Virginie Reyes RN Unavailable Unavailable Virginie Reyes RN Unavailable Unavailable Kelley Lopez APICULTURIST, HOOKER MACHINE TENDER Unavailable [phone] Virginie Reyes RN Unavailable Unavailable Reason for Visit * Reason Comments Medication Refill Encounter Details Date Type Department Care Team (Late st Contact Info) Description 05/12/2023 Refill [facility] #2 [place] [address] Vaughn Bradshaw MD #1 [place] [address] Medication Refill Social History Tobacco Use Types Packs/Day Years Used Date Smoking Tobacco: Never Smokeless Tobacco: Never Alcohol Use Standard Drinks/Week Comments No 0 (1 standard drink = 0.6 oz pur e alcohol) [facility] Utilities Answer Date Recorded In the [...] often do you attend chur ch or muslim services? Never 04/27/2023 Do you belong to any clubs o r organizations such as restorationist groups, unions, fraternal or athletic groups, or [...] Total Score - Questions 1-9 2 04/2023 [facility] [place] of Occupat ional Health - Occupational Stress [...] slept in a fpc (including now)? No 04/27/2023 Education Answer Date [...] 05/07/2023 90 90 Each Vaughn Bradshaw MD [facility] #... SIMVASTATIN 40MG TABLETS 02/01/2023 90 90 Each Vaughn Bradshaw MD [facility] #... S DISASSEMBLER documented in this encounter Plan of Treatment Upcoming Encounters Date Type Department Care Team (Late st Contact Info) Description 01/10/2025 8:45 AM CDT [facility] [address] [facility], [place] [address] [place] [address] Monae Jorgensen, APICULTURIST, HOOKER MACHINE TENDER #2 [facility] [address] [place] [address] Aishwarya Deluca, PT [place] Discharge Disposition: Discharged to home or Selfcare 01/19/2025 8:40 AM CDT Office Visit [facility] #2 [place] [address] Kasey Williamson DO 2 [facility] [address] [place] [address] documented as of this encounter Visit Diagnoses Not on filedocumented in this encounter Additional Health Concerns Infection Onset Date Last Indicated Resolved Time COVID - 19 11/15/2023 11/15/2023 11/15/2023 11:4 7 PM CDT VRE 08/18/2024 08/18/2024 Assessment Noted Time PHQ-9 Depression Total Score: 2 03/23/19 8:19 AM AUTOS DISASSEMBLER documented as of this encounter Care Teams Architectural Manager Relationship Specialty Start Date End Date Vaughn Bradshaw MD PCP - General Family Medicine 05/18/18 08/26/23 Kasey Williamson DO 2 [facility] [address] [place] [address] PCP - General Family Medicine 09/14/23 Claudia Horn, APICULTURIST [address] [place] [address] Advanced Practice Nurse 08/16/18 Vicenta Raymond DO [address] [place] [address] [place] [address] Consulting Physician Obstetrics & Gynecology 09/25/21 Gus Chowdary MD #[address] [facility] [address] [place] [address] Consulting Physician Colon and Rectal Surgery 07/23/22 Virginie Reyes, FAYE [place] Nurse Paid Internship 09/14/23 09/14/23 Virginie Reyes, RN [place] Nurse Paid Internship 11/19/23 11/29/23 Virginie Reyes, RN [place] Nurse Paid Internship 12/07/23 05/15/24 Kelley Lopez, APICULTURIST, HOOKER MACHINE TENDER #2 [facility], [facility] [place] [address] [place] [address] Nurse Practitioner Advanced Practice Nurse 12/09/23 02/22/24 Virginie Reyes, RN [place] Nurse Paid Internship 11/16/24 11/16/24 documented as of this encounter
--- OUTSIDE RECORDS SUMMARY | 2025-01-05 17:21 | XMS_ITS | Encounter Summary ---
Author Organization [facility] Address [address] [place] [address] Phone Care Team Providers Care Factory Superintendent Name Role Phone Vaughn Bradshaw MD Primary Care Provider [phone] Claudia Horn VAULT SERVICE MECHANIC Unavailable Vicenta Raymond DO Unavailable [phone] Gus Chowdary MD Unavailable Kasey Williamson DO Primary Care Provider [phone] Virginie Reyes RN Unavailable Unavailable Virginie Reyes RN Unavailable Unavailable Virginie Reyes RN Unavailable Unavailable Kelley Lopez VAULT SERVICE MECHANIC, ARCADE TECHNICIAN Unavailable [phone] Virginie Reyes RN Unavailable Unavailable Reason for Visit * Reason Comments Medication Refill Encounter Details Date Type Department Care Team (Late st Contact Info) Description 06/18/2023 Refill [facility] #2 [place] [address] Vaughn Bradshaw MD #1 [place] [address] Medication Refill Social History Tobacco Use Types Packs/Day Years Used Date Smoking Tobacco: Never Smokeless Tobacco: Never Alcohol Use Standard Drinks/Week Comments No 0 (1 standard drink = 0.6 oz pur e alcohol) [facility] Utilities Answer Date Recorded In [...] attend chur ch or confucianist services? Never 04/27/2023 Do you belong to [...] Questions 1-9 2 04/2023 [facility] of Occupat ional Health - Occupational Stress [...] slept in a usp (including now)? No 04/27/2023 Education Answer Date [...] Office Visit Monae Jorgensen APRN, FIGUEROA [facility] 03/23/23 Office Visit Monae Jorgensen APRN, ARCADE TECHNICIAN [facility] 03/01/23 Office Visit Monae Jorgensen APRN, FIGUEROA [facility] 12/07/22 Office Visit Vaughn Bradshaw MD [facility] 09/17/22 Office Visit Vaughn Bradshaw, MD [facility] 08/06/22 Office Visit Vaughn Bradshaw, MD [facility] 07/06/22 Office Visit Vaughn Bradshaw, [facility] 05/27/22 Office Visit Vivian Tucker APRN, [facility] [place] 02/03/22 Office Visit Vaughn Bradshaw MD [facility] 12/16/21 Office Visit Vaughn Bradshaw, MD [facility] [...] Office Visit Monae Jorgensen APRN, FIGUEROA [facility] 03/23/23 Office Visit Monae Jorgensen APRN, FIGUEROA [facility] 03/01/23 Office Visit Monae Jorgensen APRN, FIGUEROA [facility] [place] 12/07/22 Office Visit Vaughn Bradshaw MD [facility] 09/17/22 Office Visit Vaughn Bradshaw MD [facility] 08/06/22 Office Visit Vaughn Bradshaw MD [facility] 07/06/22 [facility] within past 365 days and meeting all other requirements Future Appointments Date Type Provider Dept 08/19/23 Appointment Vaughn Bradshaw MD [facility] [place] Showing future appointments within next 90 days and meeting all other requirements Passed - Patient less than 65 years of age for Cetirizine or Levocetirizine documented in this encounter Plan of Treatment Upcoming Encounters Date Type Department Care Team (Late st Contact Info) Description 01/10/2025 8:45 AM CDT Physical Therapy [facility] at [address], [facility] H[address] [place] [address] Monae Jorgensen APRN, ARCADE TECHNICIAN #[address] [address] Aishwarya Deluca, PT [place] Discharge Disposition: Discharged to home or Selfcare 01/19/2025 8:40 AM CDT Office Visit [facility] - Family Medicine - [place] #2 [place] [address] Kasey Williamson, DO 2 [facility] [address] [place] [address] documented as of this encounter Visit Diagnoses Diagnosis Other migraine without status migrainosus, not intractable documented in this encounter Additional Health Concerns Infection Onset Date Last Indicated Resolved Time COVID - 19 11/15/2023 11/15/2023 11/15/2023 11:4 7 PM CDT VRE 08/18/2024 08/18/2024 Assessment Noted Time PHQ-9 Depression Total Score: 2 03/23/19 8:19 AM AUTOMATION TECH documented as of this encounter Care Teams Factory Superintendent Relationship Specialty Start Date End Date Vaughn Bradshaw MD PCP - General Family Medicine 05/18/18 08/26/23 Kasey Williamson DO 2 [facility] [address] [place] [address] PCP - General Family Medicine 09/14/23 Claudia Horn APRN [address] [place] [address] Advanced Practice Nurse 08/16/18 Vicenta Raymond DO ONE PROFESSIONAL [facility] [address] [place] [address] Consulting Physician Obstetrics & Gynecology 09/25/21 Gus Chowdary MD #2 [facility] [address] [place] [address] Consulting Physician Colon and Rectal Surgery 07/23/22 Virginie Reyes, RN [place] Nurse Matcher Offbearer 09/14/23 09/14/23 Virginie Reyes, RN [place] Nurse Matcher Offbearer 11/19/23 11/29/23 Virginie Reyes, RN [place] Nurse Matcher Offbearer 12/07/23 05/15/24 Kelley Lopez APRN, ARCADE TECHNICIAN #2 [facility], [address] [place] [address] Nurse Practitioner Advanced Practice Nurse 12/09/23 02/22/24 Virginie Reyes, RN [place] Nurse Matcher Offbearer 11/16/24 11/16/24 documented as of this encounter
--- OUTSIDE RECORDS SUMMARY | 2025-01-05 17:21 | XMS_ITS | Encounter Summary ---
Author Organization [facility] Address [address] [place] [address] Phone Care Team Providers Care Miller Supervisor Name Role Phone Vaughn Bradshaw MD Primary Care Provider [phone] Claudia Horn DAYCARE ASSISTANT Unavailable Vicenta Raymond DO Unavailable [phone] Gus Chowdary MD Unavailable Kasey Williamson DO Primary Care Provider [phone] Virginie Reyes RN Unavailable Unavailable Virginie Reyes RN Unavailable Unavailable Virginie Reyes RN Unavailable Unavailable Kelley Lopez DAYCARE ASSISTANT, FIELD OPERATIONS SUPERVISOR Unavailable [phone] Virginie Reyes RN Unavailable Unavailable Reason for Visit * Reason Comments Medication Refill Encounter Details Date Type Department Care Team (Late st Contact Info) Description 04/12/2023 [facility]ill [facility] [address] [place] [address] Vaughn Bradshaw MD [address] [place] [address] Medication Refill Social History Tobacco Use Types Packs/Day Years Used Date Smoking Tobacco: Never Smokeless Tobacco: Never Alcohol Use Standard Drinks/Week Comments No 0 (1 standard drink = 0.6 oz pur e alcohol) [facility] Utilities Answer Date Recorded In the [...] often do you attend chur ch or hinduism services? Never 03/21/2023 Do you belong to any clubs o r organizations such as amish groups, unions, fraternal or athletic groups, or [...] Total Score - Questions 1-9 2 04/2023 [facility] Occupat ional [facility] - Occupational Stress [...] [place] [facility] (including now)? No 03/21/2023 Education Answer Date [...] [facility] 12/07/22 Office Visit Vaughn Bradshaw, MD [facility] 09/17/22 Office Visit Vaughn Bradshaw, MD [facility] 08/06/22 Office Visit Vaughn Bradshaw, MD [facility] 07/06/22 Office Visit Vaughn Bradshaw, MD [facility] 05/27/22 Office Visit Vivian Tucker APRN, [facility] Showing recent visits within past 365 days and meeting all other requirements Future Appointments Date Type Provider Dept 05/04/23 Appointment Monae Jorgensen APRN, FIGUEROA [facility] Showing future appointments within next 90 days and meeting all other requirements BOARD OPERATOR documented in this encounter Plan of Treatment Upcoming Encounters Date Type Department Care Team (Late st Contact Info) Description 01/10/2025 8:45 AM CDT Physical Therapy [facility] [address] [facility], [place] [place] [address] Monae Jorgensen APRN, FIELD OPERATIONS SUPERVISOR #2 [facility] [address] [place] [address] Aishwarya Deluca, PT [place] Discharge Disposition: Discharged to home or Selfcare 01/19/2025 8:40 AM CDT Office Visit [facility] [place] [address] [place] [id number] Kasey Williamson DO 2 [facility] [address] [place] [address] documented as of this encounter Visit Diagnoses Not on filedocumented in this encounter Additional Health Concerns Infection Onset Date Last Indicated Resolved Time COVID - 19 11/15/2023 11/15/2023 11/15/2023 11:4 7 PM CDT VRE 08/18/2024 08/18/2024 Assessment Noted Time PHQ-9 Depression Total Score: 2 03/23/19 8:19 AM TESTBOARD OPERATOR documented as of this encounter Care Teams Miller Supervisor Relationship Specialty Start Date End Date Vaughn Bradshaw MD PCP - General Family Medicine 05/18/18 08/26/23 Kasey Williamson DO 2 [facility] [address] [address] PCP - General Family Medicine 09/14/23 Claudia Horn, DAYCARE ASSISTANT [address] [place] [address] Advanced Practice Nurse 08/16/18 Vicenta Raymond DO [facility] [employer] [address] [address] Consulting Physician Obstetrics & Gynecology 09/25/21 Gus Chowdary MD #2 [facility] [address] [address] Consulting Physician Colon and Rectal Surgery 07/23/22 Virginie Reyes, FAYE [place] Nurse Look Out Tower Fire Watcher 09/14/23 09/14/23 Virginie Reyes RN [place] Nurse Look Out Tower Fire Watcher 11/19/23 11/29/23 Virginie Reyes RN [place] Nurse Look Out Tower Fire Watcher 12/07/23 05/15/24 Kelley Lopez, DAYCARE ASSISTANT, FIELD OPERATIONS SUPERVISOR #2 [facility], [address] [place] [address] Nurse Practitioner Advanced Practice Nurse 12/09/23 02/22/24 Virginie Reyes RN [place] Nurse Look Out Tower Fire Watcher 11/16/24 11/16/24 documented as of this encounter
--- OUTSIDE RECORDS SUMMARY | 2025-01-05 17:21 | XMS_ITS | Encounter Summary ---
Author Organization [facility] Address [address] [place] [address] Phone Care Team Providers Care Hoist Operator Name Role Phone Vaughn Bradshaw MD Primary Care Provider [phone] Claudia Horn TRAIN ELECTRONIC TECHNICIAN Unavailable [phone] Vicenta Raymond DO Unavailable [phone] Gus Chowdary MD Unavailable Kasey Williamson DO Primary Care Provider Virginie Reyes RN Unavailable Unavailable Virginie Reyes RN Unavailable Unavailable Virginie Reyes RN Unavailable Unavailable Kelley Lopez TRAIN ELECTRONIC TECHNICIAN, COMMUNITY CASE MANAGER Unavailable [phone] Virginie Reyes RN Unavailable Unavailable Reason for Visit * Reason Comments Medication Refill Encounter Details Date Type Department Care Team (Late st Contact Info) Description 02/01/2023 Refill [facility] #2 [place] [address] Vaughn Bradshaw MD #1 [place] [address] Medication Refill Social History Tobacco Use Types [...] Coronavirus/COVID-19? No / Unsure 01/28/2023 6:21 AM SOFTWARE VALIDATION TECHNICIAN documented as of this encounter Miscellaneous [...] [place] 05/27/22 Office Visit Vivian Tucker APRN, COMMUNITY CASE MANAGER [facility] 02/03/22 Office Visit [facility] Showing recent visits within past 365 days and meeting all other requirements Future Appointments Date Type Provider Dept 04/12/23 Appointment Vaughn rBadshaw MD [facility] Showing future appointments within [...] Range Status 12/07/2022 94 <130 mg/dL Final WARE VALIDATION TECHNICIAN documented in this encounter Plan of Treatment Upcoming Encounters Date Type Department Care Team (Late st Contact Info) Description 01/10/2025 8:45 AM CDT Physical Therapy [facility] [address] [facility], [facility] [address] [place] [phone] Monae Jorgensen, TRAIN ELECTRONIC TECHNICIAN, COMMUNITY CASE MANAGER #2 [facility] [address] [place] [address] Aishwarya Deluca, PT [place] Discharge Disposition: Discharged to home or Selfcare 01/19/2025 8:40 AM CDT Office Visit [facility] - Family Medicine - [place] [address] [place] [address] Kasey Williamson, DO 2 [facility] [address] [place] [address] documented as of this encounter Visit Diagnoses Not on filedocumented in this encounter Additional Health Concerns Infection Onset Date Last Indicated Resolved Time COVID - 19 11/15/2023 11/15/2023 11/15/2023 11:4 7 PM CDT VRE 08/18/2024 08/18/2024 Assessment Noted Time PHQ-9 Depression Total Score: 0 12/08/19 8:37 AM CDT documented as of this encounter Care Teams Hoist Operator Relationship Specialty Start Date End Date Vaughn Bradshaw MD PCP - General Family Medicine 05/18/18 08/26/23 Kasey Williamson DO 2 [facility]. [address] [place] [address] PCP - General Family Medicine 09/14/23 Claudia Horn APRN [address] [place] [address] Advanced Practice Nurse 08/16/18 Vicenta Raymond DO [address] [place] [address] [place] [address] Consulting Physician Obstetrics & Gynecology 09/25/21 Gus Chowdary MD #2 [facility] [address] [place] [address] Consulting Physician Colon and Rectal Surgery 07/23/22 Virginie Reyes, RN [place] Nurse Licensed Nuclear Operator 09/14/23 09/14/23 Virginie Reyes, RN [place] Nurse Licensed Nuclear Operator 11/19/23 11/29/23 Virginie Reyes, RN [place] Nurse Licensed Nuclear Operator 12/07/23 05/15/24 Kelley Lopez, TRAIN ELECTRONIC TECHNICIAN, COMMUNITY CASE MANAGER #2 [facility], [address] [place] [address] Nurse Practitioner Advanced Practice Nurse 12/09/23 02/22/24 Virginie Reyes RN [place] Nurse Licensed Nuclear Operator 11/16/24 11/16/24 documented as of this encounter
--- OUTSIDE RECORDS SUMMARY | 2025-01-05 17:21 | XMS_ITS | Clinical Summary ---
Author Organization [facility] Address [address] [place] [address] Care Team Providers Care Sports Marketer Name Role Phone Kasey Williamson DO Primary Care Provider [phone] Source Comments [facility],non-owned Affiliates and Associated Physician Practices is amultiple site organization consisting of ambulatory clinics and hospital sitesin [place], [place], [place] and [place]. This disclosure is being madepursuant to the Care Everywhere program and may not contain all information available regarding this patient. Last updated 17.[facility] Allergies Active Allergy Reactions Criticality Noted Date Comments Ulmus Fulva Rhinitis 11/21/2021 Runny eyes, coughing Nsaids Bleeding 03/30/2023 Trichophyton Rhinitis,Unknown High 11/21/2017 Coughing, watery eyes Medications * Be aware that medications may not be up to date on this document. Alwaysverify current medications with the patient. montelukast (SINGULAIR) 10 MG tablet Take 1 (one) tablet by mouth every evening 07/23/19 22 Active cyanocobalamin (VITAMIN B-12) 1000 MCG tablet Take 1 (one) tablet by mouth once daily 04/21/19 22 Active allopurinol (ZYLOPRIM) 300 MG tablet Take 1 (one) tablet by mouth once daily 09/19/19 22 Active albuterol HFA (PROVENTIL; VENTOLIN; PROAIR) 108 (90 Base) MCG/ACT inhaler Inhale 2 (two) puffs by mouth every 8 hours as needed for Shortness of Breath or Wheezing 07/08/19 22 Active busPIRone (BUSPAR) 7.5 MG tablet Take 1 (one) tablet by mouth 2 times daily 08/06/19 22 Active EPINEPHrine (EPIPEN) 0.3 MG/0.3ML auto-injector pen Inject 0.3 mL into muscle once daily as needed 10/04/19 21 Active fenofibrate micronized (LOFIBRA) 200 MG capsule Take 1 (one) capsule by mouth once daily 06/18/19 22 Active blood glucose (ACCU-CHEK YASMINE PLUS) test strip TEST BLOOD SUGAR FOUR TO FIVES TIMES DAILY 10/05/19 21 Active levothyroxine (SYNTHROID) 50 MCG tablet Take 0.5 (one-half) tablet by mouth once daily 10/04/19 21 Active azelastine (Astelin) 0.1 % nasal spray [place] 2 (two) sprays into the nose 2 times daily 05/04/19 24 Active fluticasone propionate (Flonase) 50 MCG/ACT nasal spray [place] 1 (one) spray to 2 (two) sprays into each nostril once daily as needed Active pantoprazole EC (Protonix) 40 MG tablet TAKE 1 TABLET BY MOUTH TWICE DAILY 180 tablet 04/25/19 25 Active rifAXIMin (Xifaxan) 550 MG tablet Take 1 (one) tablet by mouth 2 times daily 180 tablet 3 04/25/19 25 2025 Active SOFTCLIX LANCETS MISC 05/03/19 25 Active ubrogepant (Ubrelvy) 50 MG tablet Take 1 (one) tablet by mouth daily as needed - may repeat one time for Migraine Maximum daily dose: 200mg/24 hours Active furosemide (Lasix) 40 MG tablet Take 1 (one) tablet by mouth once daily 07/28/19 25 Active pramipexole (Mirapex) 0.5 MG tablet Take 0.5 (one-half) tablet by mouth at bedtime Active simvastatin (Zocor) 40 MG tablet Take 0.5 (one-half) tablet by mouth at bedtime Active melatonin 5 MG tablet Take 1 (one) tablet by mouth at bedtime Active vitamin D, ergocalciferol, (Drisdol) 1.25 MG (88482 UT) capsule Take 1 (one) capsule by [...] 2 Grams (2000 mg) / 24 hours. 08/04/19 Active lactulose (Chronulac) 10 GM/15ML solution Take 30 mL by mouth every 4 hours Take 30 mL by mouth every 2-4 hours to target at least 3 soft bowel movements daily at home. If confused despite this, then take more lactulose or call your doctor. 8100 mL 5 2:32 PM CDT 08/22/19 Active Additional Information Patient taking differently:30 mL Oral3 TIMES DAILY, Take 30 mL by mouth every 2-4 hours to target at least 3 soft bowel movements daily at home. If confused despite this, then take more lactulose or call your doctor., Reported on 11/28/2024 cetirizine (ZyrTEC) 10 MG tablet Take 1 (one) tablet by mouth once daily 08/04/19 Active spironolactone (Aldactone) 100 MG tabletIndications: Metabolic dysfunction-associ ated steatohepatitis (MASH) Take 1 (one) tablet by mouth once daily 30 tablet 09/12/19 Active Additional Information Patient not taking.Reported on 11/28/2024 Droplet Pen [place] 31G X 8 MM needle USE TO INJECT INSULIN FOUR TIMES DAILY 09/05/19 Active insulin glargine (Lantus/Semglee) 100 units/mL pen Inject 40 (forty) Units subcutaneously at bedtime 30 mL 10/13/19 Active Semaglutide (1 MG/DOSE) 2 MG/1.5ML Subcutaneous Solution Pen-injectorIndica tions:Class 2 obesity Inject 1 (one) mg subcutaneously every 7 days (once a week) 3 mL 11/18/19 Active carvedilol (Coreg) 3.125 MG tablet Take 1 (one) tablet by mouth 2 times daily 60 tablet 11 11/29/19 25 2025 Active insulin lispro (HumaLOG KwikPen) 100 UNIT/ML pen Inject 10 (ten) Units subcutaneously 3 times daily before meals AND ADDITIONAL: (If BS is: 70-180 give no correction Insulin; 181-200 give 2 Units; 201-250 give 4 Units; 251-300 give 6 Units; 301-350 give 8 Units; 351-400 give 10 Units; 401 or greater give 12 units and call physician.) 30 mL 4 12/06/19 25 Active Hepatitis B, CpG-Adjuvanted Vaccine, Adult (Heplisav-B) 20 MCG/0.5ML (HepB-Cpg) Inject 0.5 mL into muscle once for 1 dose Repeat in 1 month 0.5 mL 1 01/03/20 25 2024 Active Problems Problem Noted Date Diagnosed Date [...] diabetes mellitus without complications 0 03/30/2023 Overview (12/20/2024): IMO 06/21/2024 IMO 12/20/2024 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 09/03/2022 Arthritis [...] Encounters Date Type Department Care Team Description 01/05/2025 Orders Only [facility] - GI [address] [place] [phone] Marii Nunez, FAYE 01/03/2025 Telephone [facility] - GI [address] [place] [phone] Jorge Tran MD Medication Prior Auth Request 12/05/2024 Refill [facility] - Endocrinology [address] [place] [phone] Phoebe Joseph MD Med Change Request 12/01/2024 Refill [facility] - Endocrinology [address] [place] [phone] Phoebe Joseph MD MEDICATION REFILL 11/28/2024 3:30 PM CDT [facility] [address] [place] [phone] Jorge Tran MD Decompensated hepatic cirrhosis (HCC) (Primary Dx); DEBBIE (obstructive sleep apnea); Depression, unspecified depression type; Portal hypertension (HCC); Class 3 obesity (HCC); Metabolic dysfunction-associated steatotic liver disease (MASLD); Portosystemic encephalopathy (HCC); Hepatic encephalopathy (HCC) 11/28/2024 10:00 AM CDT - 11/28/2024 11:59 PM CDT Hospital Encounter [facility] OP DRAW STATION [address] [place] [phone] Discharge Disposition: Home or Self Care 11/28/2024 10:00 AM CDT Office Visit [facility] [address] [phone] Nalini Ramírez, PhD Obesity, class 3 (HCC) (Primary Dx); Insomnia, unspecified type 11/28/2024 Travel 11/17/2024 Travel 11/17/[address] [phone] Bobbi Kim, RN Appointment 11/17/[address] [phone] Jorge Tran MD Refill Request 10/24/2024 Refill [facility] [address] [phone] Jorge Tran MD MEDICATION REFILL 10/12/2024 Orders Only [facility] - Endocrinology [address] [place] [phone] Phoebe Joseph MD 10/12/2024 Telephone [facility] - Endocrinology [address] [place] [phone] Myranda Norton, RN Med Question 10/05/2024 4:00 PM CDT Office Visit [facility] [address] [phone] Jorge Tran MD Shach, Ruth, PhD Major depressive disorder, remission status unspecified, unspecified whether recurrent (Primary Dx); Obesity, class 3 (HCC) 10/05/2024 Results Follow-Up [facility] - Endocrinology [address] [facility], [place] [phone] Phoebe Joseph MD 10/05/2024 Refill [facility] - GI [address] [facility] [place] [phone] Jorge Tran MD MEDICATION REFILL 10/05/2024 Travel from Last 3 Months Immunizations Immunization Administration [...] Recorded Patient Health Questionnaire-2 Score 2 01/11/2023 [facility] [place] of Occupat ional Health - Occupational Stress [...] any time in the past 12 m [facility], were you homeless or living in a halfway (including now)? No 08/19/2024 Comments No Sex and Gender Information Value Date Recorded Sex Assigned at Not on file Legal Sex Female 12:53 PM HORSE IDENTIFIER Gender Identity Not on file Sexual Orientation Not on file Last Filed Vital Signs Vital Sign Reading Time Taken Comments Blood Pressure 149/72 11/28/2024 11:17 AM CDT Pulse 67 11/28/2024 11:10 AM CDT Temperature 37.2 C (98.9 F) 11/28/2024 11:10 AM CDT Respiratory Rate 18 08/21/2024 11:30 AM CDT Oxygen Saturation 100% 11/28/2024 11:10 AM CDT Inhaled Oxygen Concentration - - Weight 101 kg (222 lb 10.6 oz) 11/28/2024 11:10 AM CDT Height 154.9 cm (5' 1) 11/28/2024 11:10 AM CDT Body Mass Index 42.07 11/28/2024 11:10 AM CDT Plan of Treatment Upcoming Encounters Date Type Department Care Team (Late st Contact Info) Description 01/18/2025 10:00 AM CDT Office Visit [facility] [address] [facility] [address] [place] [address] Mohan Alvarez MD [address] [facility] [address] [place] [address] 02/01/2025 12:30 PM HORSE IDENTIFIER Appointment [facility] MRI [address] [place] [phone] Jorge Tran MD [address] [place] [phone] 02/01/2025 2:30 PM HORSE IDENTIFIER Office Visit [facility] - GI [address] [place] [address] [place] [phone] Jorge Tran MD [address] [place] [phone] 02/12/2025 11:00 AM HORSE IDENTIFIER Office Visit [facility] - Endocrinology [address] [place] [address], [place] [phone] Phoebe Joseph MD [address] [place] [address] [place] [phone] Health Maintenance Due Date Last Done Comments [...] 10/01/1982 ZOSTER VACCINE (1 of 2) 10/01/2013 DIABETES RETINOPATHY SCREENING 03/30/2023 DIABETES-FOOT EXAM WITH MONOFILAMENT 03/30/2023 HEPATITIS B VACCINE (1 of 3 - Risk 3-dose series) 2023 Respiratory Syncytial Virus (RSV) Vaccine Pt: or over 60 yrs (1 - Risk 60-74 years 1-dose series) 2023 DEPRESSION SCREENING 03/22/2024 01/12/2023 MEDICARE AWV CALENDAR YEAR 2024 COVID-19 VACCINE ( - season) 2024 05/17/2021, 11/16/2020, 10/19/2020 INFLUENZA VACCINE (#1) 2024 , 12/07/2022, 02/03/2022, Additional history exists DIABETES-HGB A1C 12/26/2024 09/25/2024, , 06/07/2024, Additional history exists MAMMOGRAM 07/28/2025 07/29/2023, 0511/2023, 07/29/2023, Additional history exists DIABETES - URINE PROTEIN SCREENING 10/19/2025 10/19/2024 DIABETES-SERUM CREATININE 11/28/20252024, 10/19/2024, 10/19/2024, Additional history exists HIV SCREENING Completed 12/22/2017 [...] Patient-Stated? Author Medication Management General On track( 11:16 AM CDT) No Fidelia Lainez, RN Note: Expected end date: 1 year Interventions: Take all medications as prescribed Safety General On track( 025 11:16 AM CDT) No Melany Kuhn, RN Note: Expected end date: ongoing Interventions: Your nurse will assess your risk for falls/injury each visit Make and keep follow-up appointments General On track( 025 8:34 AM CDT) Melany Wood RN Procedures Procedure Name Priority Date/Time Associated Diagnosis Comments HEPATITIS B CORE ANTIBODY TOTAL Routine 11/28/2024 10:05 AM CDT Decompensated cirrhosis (HCC) HEPATITIS B SURFACE ANTIBODY QUANT Routine 11/28/2024 10:05 AM CDT Decompensated cirrhosis (HCC) HEPATITIS B SURFACE ANTIGEN W RFLX CONFIRMATION Routine 11/28/2024 10:05 AM CDT Decompensated cirrhosis (HCC) HEPATITIS A ANTIBODY Routine 11/28/2024 10:05 AM CDT Decompensated cirrhosis (HCC) ALPHA FETOPROTEIN BLOOD TUMOR MARKER Routine 11/28/2024 10:05 AM CDT Decompensated cirrhosis (HCC) BILIRUBIN DIRECT Routine 11/28/2024 10:0 5 AM CDT Decompensated cirrhosis (HCC) PT-INR Routine 11/28/2024 10:05 AM CDT Decompensated cirrhosis (HCC) COMPREHENSIVE METABOLIC PANEL Routine 11/28/2024 10:05 AM CDT Decompensated cirrhosis (HCC) CBC W AUTO DIFFERENTIAL Routine 11/28/2024 10:05 AM CDT Decompensated cirrhosis (HCC) HEMOGLOBIN A1C - POINT OF CARE (AMB) [facility] Routine 09/25/2024 8:42 AM CDT Type 2 diabetes mellitus without complication, with long-term current use of insulin (HCC) from Last 3 Months or Most Recently Relevant to Health Maintenance Results * HEPATITIS B SURFACE ANTIBODY QUANT (11/28/2024 10:05 AM CDT) Hepatitis B Virus Surface Antibody Non-react carina Non-react carina 11/28/2024 11:23 AM CDT [facility] Comment: < 8 mIU/mL Hepatitis B surface Antibody (HBsAb). Nonreactive for HBsAb - individual is considered not immune to Hepatitis B Virus infection. Hepatitis B Surface Antibody Quantitative <3.0 <8.0 mIU/mL 11/28/2024 11:23 AM CDT [facility] Comment: Hepatitis B Surface Antibody Numeric Result Interpretation: Nonreactive: <8.0 mIU/mL Indeterminate: 8.0 - 12.0 mIU/mL Reactive: >12.0 mIU/mL Blood BLOOD SPECIMEN / Unknown Lab Venipuncture / Unknown 11/28/2024 10:05 AM CDT 11/28/2024 10:09 AM CDT Narrative [facility] - 11/28/2024 11:23 AM CDT This assay should not be used for blood, plasma, or tissue donor screening. This assay is not recommended for neonates born to HBV-infected or suspected HBV-infected mothers. us Jorge Tran MD LAB - SEROLOGY ORDERABLES Fin al Result Performing Organization Address [facility]/ZIP Co de Phone Number [address] [address], [facility] [phone] * ALPHA FETOPROTEIN BLOOD TUMOR MARKER (11/28/2024 10:05 AM CDT) Alpha-Fetoprote in Tumor Marker <2.0 <=8.3 ng/mL 11/28/2024 11:08 AM CDT [facility] Comment: AFP values will vary depending on testing procedure used. Results are not comparable across different methods. AFP values obtained by [facility] using an Coleman Alinity Immunoassay. Blood BLOOD SPECIMEN / Unknown Lab Venipuncture / Unknown 11/28/2024 10:05 AM CDT 11/28/2024 10:24 AM CDT us Jorge Tran MD LAB - CHEMISTRY ORDERABLES Fi nal Result Performing Organization Address City/[facility]/ZIP Co de Phone Number [address] [address], [place] [phone] * (ABNORMAL) PT-INR (11/28/2024 10:05 AM CDT) Pathologist [facility] PT 14.9(H) 12.1 - 14.8 Seconds 11/28/2024 10:44 AM [facility] INR 1.2 See Comment 11/28/2024 10:44 AM [facility] Comment:The suggested therap eutic range for standard coumadin (warfarin) therapy is an INR of 2.0-3.0. For high-risk patients (Mechanical Mitral Valve Prosthesis, etc.), the suggested prophylactic therapeutic range is an INR of 2.5-3.5. Blood BLOOD SPECIMEN / Unknown Lab Venipuncture / Unknown 11/28/2024 10:05 AM CDT 11/28/2024 10:09 AM CDT us Jorge Tran MD LAB - COAGULATION ORDERABLES Final Result [address] [phone] [phone] * (ABNORMAL) CBC WITH DIFFERENTIAL (11/28/2024 10:05 AM CDT) Pathologist [facility] WBC 2.0(L) 4.0 - 10.7 x10E9/L 11/28/2024 12:41 PM [facility] RBC Count 3.29(L) 3.90 - 5.20 x10E12/L 11/28/2024 12:41 PM [facility] Hemoglobin 9.2(L) 11.9 - 15.8 g/dL 11/28/2024 12:41 PM [facility] Hematocrit 28.4(L) 34.8 - 46.1 % 11/28/2024 12:41 PM [facility] MCV 86.3 80.0 - 98.0 fL 11/28/2024 12:41 PM [facility] MCH 28.0 26.7 - 33.6 pg 11/28/2024 12:41 PM [facility] MCHC 32.4 31.7 - 36.3 g/dL 11/28/2024 12:41 PM [facility] RDW-CV 15.1(H) 11.3 - 14.8 % 11/28/2024 12:41 PM [facility] Platelet Count 39(L) 150 - 420 x10E9/L 11/28/2024 12:41 PM [facility] MPV 11.2 7.8 - 11.4 fL 11/28/2024 12:41 PM [facility] Neutrophil % 57.3 41.0 - 74.0 % 11/28/2024 12:41 PM [facility] Lymphocyte % 24.5 17.0 - 47.0 % 11/28/2024 12:41 PM [facility] Monocyte % 12.3(H) 3.0 - 11.0 % 11/28/2024 12:41 PM [facility] Eosinophil % 5.4 0.0 - 7.0 % 11/28/2024 12:41 PM [facility] Basophil % 0.5 0.0 - 1.6 % 11/28/2024 12:41 PM [facility] Immature Granulocytes % 0.0 0.0 - 1.0 % 11/28/2024 12:41 PM [facility] Neutrophil Absolute 1.17(L) 1.60 - 7.50 x10E9/L 11/28/2024 12:41 PM [facility] Lymphocyte Absolute 0.50(L) 1.00 - 4.40 x10E9/L 11/28/2024 12:41 PM [facility] Monocyte Absolute 0.25 0.15 - 1.00 x10E9/L 11/28/2024 12:41 PM [facility] Eosinophil Absolute 0.11 0.00 - 0.60 x10E9/L 11/28/2024 12:41 PM [facility] Basophil Absolute 0.01 0.00 - 0.13 x10E9/L 11/28/2024 12:41 PM [facility] Blood BLOOD SPECIMEN / Unknown Lab Venipuncture / Unknown 11/28/2024 10:05 AM CDT 11/28/2024 10:24 AM T us Jorge Zack Tran MD LAB - HEMATOLOGY ORDERABLES F inal Result [facility] [address] [place] [phone], [facility] [phone] * (ABNORMAL) COMPREHENSIVE METABOLIC PANEL (11/28/2024 10:05 AM [facility]) BUN 27(H) 7 - 26 mg/dL 11/28/2024 11:11 AM [facility] Creatinine 1.57(H) 0.56 - 0.96 mg/dL 11/28/2024 11:11 AM [facility] Sodium 141 136 - 145 mmol/L 11/28/2024 11:11 AM [facility] Potassium 4.0 3.5 - 4.5 mmol/L 11/28/2024 11:11 AM [facility] Chloride 111(H) 98 - 107 mmol/L 11/28/2024 11:11 AM [facility] CO2 25 22 - 29 mmol/L 11/28/2024 11:11 AM [facility] Glucose 178(H) 70 - 99 mg/dL 11/28/2024 11:11 AM [facility] Calcium 8.7 8.4 - 10.2 mg/dL 11/28/2024 11:11 AM [facility] Protein Total 6.6 6.0 - 8.3 g/dL 11/28/2024 11:11 AM [facility] Albumin 3.2(L) 3.4 - 5.0 g/dL 11/28/2024 11:11 AM [facility] Bilirubin Total 0.8 0.2 - 1.2 mg/dL 11/28/2024 11:11 AM [facility] Alkaline Phosphatase 179(H) 40 - 150 U/L 11/28/2024 11:11 AM [facility] ALT 39 5 - 55 U/L 11/28/2024 11:11 AM [facility] AST 41(H) 5 - 34 U/L 11/28/2024 11:11 AM [facility] Anion Gap 5(L) 6 - 16 11/28/2024 11:11 AM [facility] BUN/Creatinine Ratio 17 7 - 23 11/28/2024 11:11 AM [facility] Osmolality Calculated 302(H) 275 - 295 mOsm/kg 11/28/2024 11:11 AM [facility] Albumin/Globulin Ratio 0.9(L) 1.1 - 2.3 11/28/2024 11:11 AM [facility] eGFR by CKD-EPI 37(L) >=90 mL/min/1.7 3 m2 11/28/2024 11:11 AM [facility] Comment:Estimated Glomerular Filtration Rate (eGFR) calculated using the CKD-EPI Creatinine Equation (2020), per the National Kidney Foundation and [place] [employer] Nephrology recommendations. Blood BLOOD SPECIMEN / Unknown Lab Venipuncture / Unknown 11/28/2024 10:05 AM CDT 11/28/2024 10:24 AM CDT Jorge Tran MD LAB - CHEMISTRY ORDERABLES Fi nal Result [address] [address], [facility] [phone] * HEPATITIS B CORE ANTIBODY TOTAL (11/28/2024 10:05 AM CDT) HBc Antibody Total Non-reacti ve Non-reacti ve 11/28/2024 11:21 AM CDT [facility] Blood BLOOD SPECIMEN / Unknown Lab Venipuncture / Unknown 11/28/2024 10:05 AM CDT 11/28/2024 10:09 AM CDT Jorge Tran MD LAB - CHEMISTRY ORDERABLES Fi nal Result [address] [address], [facility] [phone] * HEPATITIS B SURFACE ANTIGEN W RFLX CONFIRMATION (11/28/2024 10:05 AM CDT) Hepatitis B Virus Surface Antigen Non-reacti ve Non-reacti ve 11/28/2024 11:21 AM CDT [facility] Blood BLOOD SPECIMEN / Unknown Lab Venipuncture / Unknown 11/28/2024 10:05 AM CDT 11/28/2024 10:09 AM CDT Jorge Tran MD LAB - CHEMISTRY ORDERABLES Fi nal Result Performing Organization Address City/[facility]/ZIP Co de Phone Number [address] [address], [facility] [phone] * BILIRUBIN DIRECT (11/28/2024 10:05 AM CDT) Bilirubin Conjugated 0.3 0.1 - 0.5 mg/dL 11/28/2024 11:11 AM CDT [facility] Blood BLOOD SPECIMEN / Unknown Lab Venipuncture / Unknown 11/28/2024 10:05 AM CDT 11/28/2024 10:[address] [facility] Jorge Tran MD LAB - CHEMISTRY ORDERABLES Fi nal Result Performing Organization Address [facility] de Phone Number [address] [address], [facility] [phone] * (ABNORMAL) HEPATITIS A ANTIBODY (11/28/2024 10:05 AM CDT) Hepatitis A Virus Antibody Total Positive( A) Negative 11/29/2024 5:23 PM CDT [facility] ([facility]) Comment: The positive anti-HAV is consistent with recent or remote Hepatitis A infection or antibody response to HAV vaccination. False positive anti-HAV can occur. Performed By: [employer] [address] [place] [address] Retail Sales Representative: Cory Sandoval MD, PhD CLIA Number: [id number] Blood BLOOD SPECIMEN / Unknown Lab Venipuncture / Unknown 11/28/2024 10:05 AM CDT 11/28/2024 10:09 AM CDT Jorge Tran MD LAB - CHEMISTRY ORDERABLES Fi nal Result [facility] ([facility]) [address] [place] [address], [facility] * HEMOGLOBIN A1C - POINT OF CARE (AMB) [facility] (09/25/2024 8:42 AM CDT) Hemoglobin A1c POCT 9.5 % [facility] [address] [facility] BLOOD SPECIMEN / Unknown 09/25/2024 8:42 AM CDT Phoebe Joseph MD LAB - POINT OF CARE ORDERABLES Final Result [facility] [address] [facility] [address] [facility] [place] [address], [facility] [phone] from Last 3 Months or Most Recently Relevant to Health Maintenance Insurance MEDICAID - [place] [facility] MEDICARE ADV HMO & PPO MEDICAID - [...] 7:21 PM 05/04/2024 8:23 PM Care Teams Sports Marketer Relationship Specialty Start Date End Date Kasey Williamson DO [address] [place] [phone] PCP - General Family Medicine 12/27/23
--- OUTSIDE RECORDS SUMMARY | 2025-01-05 17:21 | XMS_ITS | Clinical Summary ---
Author Organization [facility] HealthCare Care Team Providers Care Software Technical Lead Name Role Phone Vicenta Raymond DO Unavailable [phone] Vaughn Bradshaw MD Primary Care Provider [phone] Allergies No known active allergies Medications albuterol [...] (02/20/2022): Added automatically from request for surgery [id number] Postmenopausal bleeding 09/04/202104/22 Overview (09/04/2021): Added automatically from request for surgery [id number] Immunizations Immunization Administration Dates Next Due Hep [...] Medical History Medical History Date Comments Diabetes NASCIMENTO (nonalcoholic steatohepatitis) High cholesterol Hypothyroidism Hypertension Sleep apnea Cancer (HCC) skin cancer Type 2 diabetes mellitus Headache Depression Allergic rhinitis Gout Family History [...] Comments Blood Pressure 138/82 05/08/2022 11:08 AM COLLABORATING SUPERVISING PHYSICIAN Pulse 94 03/24/2022 4:20 PM COLLABORATING SUPERVISING PHYSICIAN Temperature 36.9 C (98.5 F) 03/24/2022 4:20 PM COLLABORATING SUPERVISING PHYSICIAN Respiratory Rate 16 03/24/2022 4:20 PM COLLABORATING SUPERVISING PHYSICIAN Oxygen Saturation 97% 03/24/2022 4:20 PM COLLABORATING SUPERVISING PHYSICIAN Inhaled Oxygen Concentration - - Weight 111.9 kg (246 lb 9.6 oz) 023 11:08 AM COLLABORATING SUPERVISING PHYSICIAN Height 154.9 cm (5' 1) 03/24/2022 6:50 AM COLLABORATING SUPERVISING PHYSICIAN Body Mass Index 46.59 03/24/2022 6:50 AM COLLABORATING SUPERVISING PHYSICIAN Plan of Treatment Health Maintenance Due Date Last Done Comments Albumin Creatinine Ratio, Urine 1963 Cervical Cancer Screening 1963 Colon Cancer Screening-Colonoscopy 1963 Depression Screening 1963 Hepatitis C Screening 1963 eGFR 1963 Dilated Eye Exam 1963 Foot Exam 1963 Lipid Panel 1963 Regular Well Visit/Exam 18-64 10/01/1981 Zoster Vaccine (1 of 2) 10/01/2013 Pneumococcal vaccine <65 (2 of 2 - PCV) 02/17/2019 02/17/2018 Hemoglobin A1C 01/05/2024 07/06/2023, 09/24/2021 Breast Cancer Screening-Mammogram 07/28/2024 07/29/2023, 01/06/2021, 01/25/2018 Covid-19 Vaccine (4 - 2024-2 6 season) 2024 05/17/2021, 11/16/2020, 10/19/2020 Influenza Vaccine (#1) 2024 3, 02/03/2022, 01/20/2021, [...] Most Recently Relevant to Health Maintenance Insurance [facility] MEDICARE O [facility] [employer] MEDICARE HMO Care Teams Software Technical Lead Relationship Specialty Start Date End Date Vaughn Bradshaw MD [address] [address] [place] [address] PCP - General Family Medicine 12/30/21 Vicenta Raymond DO [address] [place] [address] Consulting Physician Obstetrics and Gynecology 09/09/21
--- OUTSIDE RECORDS SUMMARY | 2025-01-05 17:21 | XMS_ITS | Encounter Summary ---
Author Organization [facility] Address [address] [place] [address] Phone Care Team Providers Care Sanding Machine Operator Or Tender Name Role Phone Vaughn Bradshaw MD Primary Care Provider [phone] Claudia Horn LOG BUNCHER Unavailable Vicenta Raymond DO Unavailable Gus Chowdary MD Unavailable Kasey Williamson DO Primary Care Provider [phone] Virginie Reyes RN Unavailable Unavailable Virginie Reyes RN Unavailable Unavailable Virginie Reyes RN Unavailable Unavailable Kelley Lopez LOG BUNCHER, COMPARISON SHOPPER Unavailable [phone] Virginie Reyes RN Unavailable Unavailable Reason for Visit * Reason Comments Medication Refill Encounter Details Date Type Department Care Team (Late st Contact Info) Description 03/16/2023 [facility]ill [facility] #2 [place] [address] Vaughn Bradshaw MD #1 [place] [address] Medication Refill Social History Tobacco Use Types [...] Refill on file according to last Rx. CAL INSTRUMENT TECHNICIAN documented in this encounter Plan of Treatment Upcoming Encounters Date Type Department Care Team (Late st Contact Info) Description 01/10/2025 8:[address] [facility] Rehab at [facility] 200 [facility], [facility] [address] [place] [address] Monae Jorgensen, LOG BUNCHER, COMPARISON SHOPPER #2 [facility] [address] [place] [address] Aishwarya Deluca, PT [place] Discharge Disposition: Discharged to home or Selfcare 01/19/2025 8:40 AM CDT Office Visit [facility] - [place] [address]2 [place] [id number] Kasey Williamson, DO 2 [facility] [address] [place] [address] documented as of this encounter Visit Diagnoses Diagnosis Type 2 diabetes mellitus with hyperglycemia, with long-term current use of insulin documented in this encounter Additional Health Concerns Infection Onset Date Last Indicated Resolved Time COVID - 19 11/15/2023 11/15/2023 11/15/2023 11:4 7 PM CDT VRE 08/18/2024 08/18/2024 Assessment Noted Time PHQ-9 Depression Total Score: 17 023 10:00 AM MEDICAL INSTRUMENT TECHNICIAN documented as of this encounter Care Teams Sanding Machine Operator Or Tender Relationship Specialty Start Date End Date Vaughn Bradshaw MD PCP - General Family Medicine 05/18/18 08/26/23 Kasey Williamson DO 2 [facility] [address] [place] [address] PCP - General Family Medicine 09/14/23 Claudia Horn APRN [address] [place] [address] Advanced Practice Nurse 08/16/18 Vicenta Raymond DO ONE PROFESSIONAL [address] [address] Consulting Physician Obstetrics & Gynecology 09/25/21 Gus Chowdary MD #2 [facility] [address] [place] [address] Consulting Physician Colon and Rectal Surgery 07/23/22 Virginie Reyes, FAYE [place] Nurse Cook Sauce 09/14/23 09/14/23 Virginie Reyes, RN [place] Nurse Cook Sauce 11/19/23 11/29/23 Virginie Reyes, RN [place] Nurse Cook Sauce 12/07/23 05/15/24 Kelley Lopez APRN, COMPARISON SHOPPER #[address] [facility], [address] [place] [address] Nurse Practitioner Advanced Practice Nurse 12/09/23 02/22/24 Virginie Reyes RN [place] Nurse Cook Sauce 11/16/24 11/16/24 documented as of this encounter
--- OUTSIDE RECORDS SUMMARY | 2025-01-05 17:21 | XMS_ITS | Encounter Summary ---
Author Organization [facility] Address [address] [place] [address] Phone Care Team Providers Care Source Water Protection Specialist Name Role Phone Vaughn Bradshaw MD Primary Care Provider [phone] Claudia Horn CANDY ATTENDANT Unavailable [phone] Vicenta Raymond DO Unavailable Gus Chowdary MD Unavailable Kasey Williamson DO Primary Care Provider [phone] Virginie Reyes RN Unavailable Unavailable Virginie Reyes RN Unavailable Unavailable Virginie Reyes RN Unavailable Unavailable Kelley Lopez CANDY ATTENDANT, LASER SET UP OPERATOR Unavailable [phone] Virginie Reyes RN Unavailable Unavailable Reason for Visit * Reason Comments Medication Refill Encounter Details Date Type Department Care Team (Late st Contact Info) Description 06/19/2023 Refill [facility] #2 [place] [address] Vaughn Bradshaw MD #1 [place] [address] Medication Refill Social History Tobacco Use Types Packs/Day Years Used Date Smoking Tobacco: Never Smokeless Tobacco: Never Alcohol Use Standard Drinks/Week Comments No 0 (1 standard drink = 0.6 oz pur e alcohol) [facility] Utilities Answer Date Recorded In [...] often do you attend chur ch or alevism services? Never 04/27/2023 Do you belong to any clubs o r organizations such as yazidi groups, unions, fraternal or athletic groups, or [...] Total Score - Questions 1-9 2 04/2023 [facility] [place] of Occupat ional Health - Occupational Stress [...] in a skilled nursing (including now)? No 04/27/2023 Education Answer Date [...] Miscellaneous Notes * Telephone Encounter - Irma Beyer, RN - 06/21/2023 2:28 PM CDT Duplicate request. documented in this encounter Plan of Treatment Upcoming Encounters Date Type Department Care Team (Late st Contact Info) Description 01/10/2025 8:45 AM CDT Physical Therapy [facility] at [facility] 200 [facility], [facility] [address] [place] [address] Monae Jorgensen, CANDY ATTENDANT, LASER SET UP OPERATOR #2 [facility] [address] [place] [address] Aishwarya Deluca, PT [place] Discharge Disposition: Discharged to home or Selfcare 01/19/2025 8:40 AM CDT Office Visit [facility] - Family [facility] [address] [place] [address] Kasey Williamson DO 2 [facility] [address] [place] [address] documented as of this encounter Visit Diagnoses Diagnosis Other migraine without status migrainosus, not intractable documented in this encounter Additional Health Concerns Infection Onset Date Last Indicated Resolved Time COVID - 19 11/15/2023 11/15/2023 11/15/2023 11:4 7 PM CDT VRE 08/18/2024 08/18/2024 Assessment Noted Time PHQ-9 Depression Total Score: 2 03/23/19 24 8:19 AM CONTINGENTS SUPERVISOR documented as of this encounter Care Teams Source Water Protection Specialist Relationship Specialty Start Date End Date Vaughn Bradshaw MD PCP - General Family Medicine 05/18/18 08/26/23 Kasey Williamson DO [address] [address] PCP - General Family Medicine 09/14/23 Claudia Horn APRN [address] [place] [address] Advanced Practice Nurse 08/16/18 Vicenta Raymond DO ONE PROFESSIONAL [address] [place] [address] Consulting Physician Obstetrics & Gynecology 09/25/21 Gus Chowdary MD #[address] [facility] [address] [place] [address] Consulting Physician Colon and Rectal Surgery 07/23/22 Virginie Reyes, RN [place] Nurse Industrial Engineering 09/14/23 09/14/23 Virginie Reyes, RN [place] Nurse Industrial Engineering 11/19/23 11/29/23 Virginie Reyes, RN [place] Nurse Industrial Engineering 12/07/23 05/15/24 Kelley Lopez, CANDY ATTENDANT, LASER SET UP OPERATOR #2 [facility], [facility] [address] [place] [address] Nurse Practitioner Advanced Practice Nurse 12/09/23 02/22/24 Virginie Reyes, RN [place] Nurse Industrial Engineering 11/16/24 11/16/24 documented as of this encounter
--- OUTSIDE RECORDS SUMMARY | 2025-01-05 17:21 | XMS_ITS | Encounter Summary ---
Author Organization [facility] Address [address] [place] [address] Phone Care Team Providers Care Hospital Laboratory Technician Name Role Phone Vaughn Bradshaw MD Primary Care Provider Claudia Horn GUEST SERVICE TEAM LEADER Unavailable [phone] Vicenta Raymond DO Unavailable Gus Chowdary MD Unavailable Kasey Williamson DO Primary Care Provider Virginie Reyes RN Unavailable Unavailable Virginie Reyes RN Unavailable Unavailable Virginie Reyes RN Unavailable Unavailable Kelley Lopez GUEST SERVICE TEAM LEADER, TIMBER REPAIRER Unavailable [phone] Virginie Reyes RN Unavailable Unavailable Reason for Visit * Reason Comments Medication Refill Encounter Details Date Type Department Care Team (Late st Contact Info) Description 04/11/2023 Refill [facility] #2 [place] [address] Vaughn Bradshaw MD #1 [place] [address] Medication Refill Social History Tobacco Use Types Packs/Day Years Used Date Smoking Tobacco: Never Smokeless Tobacco: Never Alcohol Use Standard Drinks/Week Comments No 0 (1 standard drink = 0.6 oz pur e alcohol) [facility] Utilities Answer Date Recorded In the [...] often do you attend chur ch or yazidi services? Never 03/21/2023 Do you belong to any clubs o r organizations such as sikh groups, unions, fraternal or athletic groups, or [...] Total Score - Questions 1-9 2 04/2023 [facility] [place] of Occupat ional Health - Occupational Stress [...] [place] RN - 04/11/2023 2:13 PM COORDINATE MEASURING MACHINE OPERATOR Medication warning Per nursing clinical judgement, [...] 03/23/23 Office Visit Monae Jorgensen APRN, FIGUEROA [facility] 03/01/23 Office Visit Monae Jorgensen APRN, FIGUEROA [facility] 12/07/22 Office Visit Vaughn Bradshaw, MD [facility] 09/17/22 Office Visit Vaughn Bradshaw, MD [facility] 08/06/22 Office Visit Vaughn Bradshaw, MD [facility] 07/06/22 Office Visit Vaughn Bradshaw, MD [facility] 05/27/22 Office Visit Vivian Tucker APRN, FIG[facility] Showing recent visits within past 365 [...] Visit Monae Jorgensen APRN, CNP [facility] 03/01/23 Office Visit Monae Jorgensen APRN, CNP [facility] 12/07/22 Office Visit Vaughn Bradshaw MD [facility] [...] 122/84 12/07/22 130/82 Patient-entered: No data recorded DINATE MEASURING MACHINE OPERATOR documented in this encounter Plan of Treatment Upcoming Encounters Date Type Department Care Team (Late st Contact Info) Description 01/10/2025 8:45 AM CDT Physical Therapy [facility] at [facility] 200 [facility], [facility] [address] [place] [address] Monae Jorgensen APRN, TIMBER REPAIRER #2 [facility] [address] [place] [address] Aishwarya Deluca, PT [place] Discharge Disposition: Discharged to home or Selfcare 01/19/2025 8:40 AM CDT Office Visit [facility] - Family Medicine [facility] #2 [place] [address] Kasey Williamson, DO 2 [facility] [address] [place] [address] documented as of this encounter Visit Diagnoses Diagnosis Environmental allergies Allergic rhinitis, cause unspecified Restless leg syndrome Restless legs syndrome (RLS) documented in this encounter Additional Health Concerns Infection Onset Date Last Indicated Resolved Time COVID - 19 11/15/2023 11/15/2023 11/15/2023 11:4 7 PM CDT VRE 08/18/2024 08/18/2024 Assessment Noted Time PHQ-9 Depression Total Score: 2 03/23/19 8:19 AM COORDINATE MEASURING MACHINE OPERATOR documented as of this encounter Care Teams Hospital Laboratory Technician Relationship Specialty Start Date End Date Vaughn Bradshaw MD PCP - General Family Medicine 05/18/18 08/26/23 Kasey Williamson DO 2 [facility] [address] [place] [address] PCP - General Family Medicine 09/14/23 Claudia Horn APRN [address] [place] [address] Advanced Practice Nurse 08/16/18 Vicenta Raymond DO ONE PROFESSIONAL [facility] [address] [place] [address] Consulting Physician Obstetrics & Gynecology 09/25/21 Gus Chowdary MD #[address] [facility] [address] [place] [address] Consulting Physician Colon and Rectal Surgery 07/23/22 Virginie Reyes, RN [place] Nurse Structural Engineering Drafting Officer 09/14/23 09/14/23 Virginie Reyes, RN [place] Nurse Structural Engineering Drafting Officer 11/19/23 11/29/23 Virginie Reyes, RN [place] Nurse Structural Engineering Drafting Officer 12/07/23 05/15/24 Kelley Lopez, GUEST SERVICE TEAM LEADER, TIMBER REPAIRER #[address] [facility], [address] [place] [address] Nurse Practitioner Advanced Practice Nurse 12/09/23 02/22/24 Virginie Reyes, RN [place] Nurse Structural Engineering Drafting Officer 11/16/24 11/16/24 documented as of this encounter
--- OUTSIDE RECORDS SUMMARY | 2025-01-05 17:21 | XMS_ITS | Encounter Summary ---
Author Organization [facility] Address [address] [place] [address] Phone Care Team Providers Care Outreach Representative Name Role Phone Vaughn Bradshaw MD Primary Care Provider [phone] Claudia Horn BILLING ADMINISTRATOR Unavailable Vicenta Raymond DO Unavailable Gus Chowdary MD Unavailable Kasey Williamson DO Primary Care Provider [phone] Virginie Reyes RN Unavailable Unavailable Virginie Reyes RN Unavailable Unavailable Virginie Reyes RN Unavailable Unavailable Kelley Lopez BILLING ADMINISTRATOR, PEN OR PENCIL ASSEMBLY MACHINE OPERATOR Unavailable [phone] Virginie Reyes RN Unavailable Unavailable Reason for Visit * Reason Comments Medication Refill Encounter Details Date Type Department Care Team (Late st Contact Info) Description 03/02/2021 Refill [facility] Family [facility] #2 [place] [address] Vaughn Bradshaw MD #1 [place] [address] Medication Refill Social History Tobacco Use Types [...] COVID-19? No / Unsure 03/03/2021 1:05 PM GOLD LETTERER documented as of this encounter Miscellaneous Notes [...] Provider Dept 04/22/21 Appointment Vaughn Bradshaw MD [facility] Showing future appointments within next 90 days and meeting all other requirements Passed - Has an encounter in the past 6 months with a depression or anxiety visit diagnosis Passed - No PRN Use for Trazodone LETTERER documented in this encounter Plan of Treatment Upcoming Encounters Date Type Department Care Team (Late st Contact Info) Description 01/10/2025 8:45 AM CDT Physical Therapy [facility] Rehab at [facility] 200 [facility], [address] [place] [address] Monae Jorgensen APRN, PEN OR PENCIL ASSEMBLY MACHINE OPERATOR #2 [facility] [address] [place] [address] Aishwarya Deluca, PT [place] Discharge Disposition: Discharged to home or Selfcare 01/19/2025 8:40 AM CDT Office Visit [facility] - Family Medicine - [place] #2 [place] [address] Kasey Williamson, DO 2 [facility] [address] [place] [address] documented as of this encounter Visit Diagnoses Diagnosis Anxiety and depression Dysthymic disorder documented in this encounter Additional Health Concerns Infection Onset Date Last Indicated Resolved Time COVID - 19 03/31/2021 03/31/2021 03/31/2021 9:59 PM GOLD LETTERER COVID - 19 Confirmed 03/31/2021 03/31/2021 022 12:16 AM GOLD LETTERER COVID - 19 01/14/2022 01/14/2022 01/15/2022 7:59 AM CDT Respiratory Rule-Out 01/14/2022 01/14/2022 022 8:08 AM CDT COVID 11/15/2023 11/15/2023 11/15/2023 11:4 7 PM CDT VRE 08/18/2024 08/18/2024 Assessment Noted Time PHQ-9 Depression Total Score: 0 10/04/19 21 9:00 AM CDT documented as of this encounter Care Teams Outreach Representative Relationship Specialty Start Date End Date Vaughn Bradshaw MD PCP - General Family Medicine 05/18/18 08/26/23 Kasey Williamson DO 2 [facility] [address] [place] [address] PCP - General Family Medicine 09/14/23 Claudia Horn APRN [address] [place] [address] Advanced Practice Nurse 08/16/18 Vicenta Raymond DO ONE PROFESSIONAL [facility] [address] [place] [address] Consulting Physician Obstetrics & Gynecology 09/25/21 Gus Chowdary MD #2 [facility] [address] [place] [address] Consulting Physician Colon and Rectal Surgery 07/23/22 Virginie Reyes, RN [place] Nurse Snowsport Instructor 09/14/23 09/14/23 Virginie Reyes, RN [place] Nurse [place] Instructor 11/19/23 11/29/23 Virginie Reyes, RN [place] Nurse [place] Instructor 12/07/23 05/15/24 Kelley Lopez, BILLING ADMINISTRATOR, PEN OR PENCIL ASSEMBLY MACHINE OPERATOR #2 [facility], [address] [place] [address] Nurse Practitioner Advanced Practice Nurse 12/09/23 02/22/24 Virginie Reyes RN [place] Nurse [place] Instructor 11/16/24 11/16/24 documented as of this encounter
--- OUTSIDE RECORDS SUMMARY | 2025-01-05 17:21 | XMS_ITS | Encounter Summary ---
Author Organization [facility] Address [address] [place] [address] Phone Care Team Providers Care Platform Supervisor Name Role Phone Vaughn Bradshaw MD Primary Care Provider [phone] Claudia Horn CEMENT FINISHER Unavailable Vicenta Raymond DO Unavailable Gus Chowdary MD Unavailable Kasey Williamson DO Primary Care Provider [phone] Virginie Reyes RN Unavailable Unavailable Virginie Reyes RN Unavailable Unavailable Virginie Reyes RN Unavailable Unavailable Kelley Lopez CEMENT FINISHER, JOB SERVICE SPECIALIST Unavailable [phone] Virginie Reyes RN Unavailable Unavailable Reason for Visit * Reason Comments Medication Refill Encounter Details Date Type Department Care Team (Late st Contact Info) Description 07/30/2023 Refill [facility] Family [facility] #2 [place] [address] Vaughn Bradshaw MD #1 [place] [address] Medication Refill Social History Tobacco Use Types Packs/Day Years Used Date Smoking Tobacco: Never Smokeless Tobacco: Never Alcohol Use Standard Drinks/Week Comments No 0 (1 standard drink = 0.6 oz pur e alcohol) [facility] Utilities Answer Date Recorded In [...] often do you attend chur ch or mandaeism services? Never 04/27/2023 Do you belong to any clubs o r organizations such as jewish groups, unions, fraternal or athletic groups, or [...] Total Score - Questions 1-9 2 04/2023 [facility] of Occupat ional Health - Occupational Stress [...] 8:45 AM CDT Physical Therapy [facility] Rehab at [facility] 200 [facility], [facility] [address] [place] [address] Monae Jorgensen, CEMENT FINISHER, JOB SERVICE SPECIALIST #2 [facility] [address] [place] [address] Aishwarya Deluca, PT [place] Discharge Disposition: Discharged to home or Selfcare 01/19/2025 8:40 AM CDT Office Visit [facility] - Family Medicine [facility] #2 [place] [address] Kasey Williamson DO 2 [facility] [address] [place] [address] documented as of this encounter Visit Diagnoses Diagnosis Moderate episode of recurrent major depressive disorder documented in this encounter Additional Health Concerns Infection Onset Date Last Indicated Resolved Time COVID - 19 11/15/2023 11/15/2023 11/15/2023 11:4 7 PM CDT VRE 08/18/2024 08/18/2024 Assessment Noted Time PHQ-9 Depression Total Score: 2 03/23/19 8:19 AM OCCUPATIONAL THERAPY SPECIALIST documented as of this encounter Care Teams Platform Supervisor Relationship Specialty Start Date End Date Vaughn Bradshaw MD PCP - General Family Medicine 05/18/18 08/26/23 Kasey Williamson DO 2 [facility] [address] [place] [address] PCP - General Family Medicine 09/14/23 Claudia Horn APRN [address] [place] [address] Advanced Practice Nurse 08/16/18 Vicenta Raymond DO ONE PROFESSIONAL [facility] [address] [place] [address] Consulting Physician Obstetrics & Gynecology 09/25/21 Gus Chowdary MD #[address] [facility] [address] [place] [address] Consulting Physician Colon and Rectal Surgery 07/23/22 Virginie Reyes, RN [place] Nurse Emergency Care Attendant 09/14/23 09/14/23 Virginie Reyes, RN [place] Nurse Emergency Care Attendant 11/19/23 11/29/23 Virginie Reyes, RN [place] Nurse Emergency Care Attendant 12/07/23 05/15/24 Kelley Lpoez APRN, JOB SERVICE SPECIALIST #[address] [facility], [facility] [address] [place] [address] Nurse Practitioner Advanced Practice Nurse 12/09/23 02/22/24 Virginie Reyes, RN [place] Nurse Emergency Care Attendant 11/16/24 11/16/24 documented as of this encounter
--- OUTSIDE RECORDS SUMMARY | 2025-01-05 17:21 | XMS_ITS | Encounter Summary ---
Author Organization [facility] Address [address] [place] [address] Phone Care Team Providers Care Furnace Mechanic Name Role Phone Vaughn Bradshaw MD Primary Care Provider [phone] Claudia Horn CHIEF ENGINEER'S HELPER Unavailable Vicenta Raymond DO Unavailable Gus Chowdary MD Unavailable Kasey Williamson DO Primary Care Provider [phone] Virginie Reyes RN Unavailable Unavailable Virginie Reyes RN Unavailable Unavailable Virginie Reyes RN Unavailable Unavailable Kelley Lopez CHIEF ENGINEER'S HELPER, PRODUCT DEVELOPMENT CHEMIST Unavailable [phone] Virginie Reyes RN Unavailable Unavailable Reason for Visit * Reason Comments Medication Refill Encounter Details Date Type Department Care Team (Late st Contact Info) Description 03/19/2023 Refill [facility] #2 [place] [address] Vaughn Bradshaw MD #1 [place] [address] Medication Refill Social History Tobacco Use Types Packs/Day Years Used Date Smoking Tobacco: Never Smokeless Tobacco: Never Alcohol Use Standard Drinks/Week Comments No 0 (1 standard drink = 0.6 oz pur e alcohol) [facility] Utilities Answer Date Recorded In the [...] often do you attend chur ch or temple services? Never 03/21/2023 Do you belong to [...] Total Score - Questions 1-9 2 04/2023 [facility] [place] of Occupat ional Health - [...] of Assessment Author 0 03/21/2023 12:05 PM [employer] Background * Q1: How often do you have a drink containing alcohol? Answer Date of Assessment Author Never 03/21/2023 12:05 PM [employer] Background * Q2: How many drinks containing alcohol do you have on a typical day when you are drinking? Answer Date of Assessment Author Patient does not drink 03/21/2023 12:05 PM BLISTER PACK OPERATOR [employer]ny [email or web address] Background * Q3: How often do you have six or more drinks on one occasion? Answer Date of Assessment Author Never 03/21/2023 12:05 PM MIAH [employer] Background documented as of this encounter Miscellaneous Notes * Telephone Encounter - Pili Maria T L, RN - 03/19/2023 12:50 PM CST Continue [...] Range Status 12/07/2022 59 (L) >=60 Final TER PACK OPERATOR * Telephone Encounter - Maria T Alejandre RN - 03/19/2023 12:47 PM CST Images from the original note were not included. Semaglutide Dispensed Days Supply Quantity Provider Pharmacy OZEMPIC 1MG PER DOSE (4MG/3ML) [facility] 03/05/2023 14 3 mL Vaughn Bradshaw MD [facility] #... OZEMPIC 1MG PER DOSE (4MG/3ML) [facility] 02/22/2023 14 3 mL Vaughn Bradshaw MD [facility] #... Fill quantity 14 [address] PACK OPERATOR documented in this encounter Plan of Treatment Upcoming Encounters Date Type Department Care Team (Late st Contact Info) Description 01/10/2025 8:45 AM CDT Physical Therapy [facility] at [facility] [address] [facility], [facility] [address] [place] [address] Monae Jorgensen, CHIEF ENGINEER'S HELPER, PRODUCT DEVELOPMENT CHEMIST #2 [facility] [address] [place] [address] Aishwarya [place]uca, PT [place] Discharge Disposition: Discharged to home or Selfcare 01/19/2025 8:40 AM CDT [facility] - [place] [address] [place] [address] Kasey Williamson, DO 2 [facility] [address] [place] [address] documented as of this encounter Visit Diagnoses Diagnosis Type 2 diabetes mellitus with hyperglycemia, with long-term current use of insulin documented in this encounter Additional Health Concerns Infection Onset Date Last Indicated Resolved Time COVID - 19 11/15/2023 11/15/2023 11/15/2023 11:4 7 PM CDT VRE 08/18/2024 08/18/2024 Assessment Noted Time PHQ-9 Depression Total Score: 17 023 10:00 AM BLISTER PACK OPERATOR documented as of this encounter Care Teams Furnace Mechanic Relationship Specialty Start Date End Date Vaughn Bradshaw MD PCP - General Family Medicine 05/18/18 08/26/23 Kasey Williamson DO 2 [facility] [address] [place] [address] PCP - General Family Medicine 09/14/23 Claudia Horn, CHIEF ENGINEER'S HELPER [address] [place] [address] Advanced Practice Nurse 08/16/18 Vicenta Raymond DO [address] [place] [address] [place] [address] Consulting Physician Obstetrics & Gynecology 09/25/21 Gus Chowdary MD #2 [facility] [address] [place] [address] Consulting Physician Colon and Rectal Surgery 07/23/22 Virginie Reyes, RN [place] Nurse Inspector Outside Steam Distribution 09/14/23 09/14/23 Virginie Reyes, RN [place] Nurse Inspector Outside [employer] 11/19/23 11/29/23 Virginie Reyes, RN [place] Nurse Inspector Outside [employer] 12/07/23 05/15/24 Kelley Lopez, CHIEF ENGINEER'S HELPER, PRODUCT DEVELOPMENT CHEMIST #2 [facility], [address] [place] [address] Nurse Practitioner Advanced Practice Nurse 12/09/23 02/22/24 Virginie Reyes, RN [place] Nurse Inspector Outside Steam Distribution 11/16/24 11/16/24 documented as of this encounter
--- OUTSIDE RECORDS SUMMARY | 2025-01-05 17:22 | XMS_ITS | Encounter Summary ---
Author Organization [facility] Address [address] [place] [address] Phone Care Team Providers Care Farm General Manager Name Role Phone Vaughn Bradshaw MD Primary Care Provider [phone] Claudia Horn HISTOLOGY SPECIALIST Unavailable Vicenta Raymond DO Unavailable Gus Chowdary MD Unavailable Kasey Williamson DO Primary Care Provider [phone] Virginie Reyes RN Unavailable Unavailable Virginie Reyes RN Unavailable Unavailable Virginie Reyes RN Unavailable Unavailable Kelley Lopez HISTOLOGY SPECIALIST, COREMAKER PIPE Unavailable [phone] Virginie Reyes RN Unavailable Unavailable Reason for Visit * Reason Comments Medication Refill Encounter Details Date Type Department Care Team (Late st Contact Info) Description 07/22/2021 Refill [facility] #2 [place] [address] Vaughn Bradshaw MD #1 [place] [address] Medication Refill Social History Tobacco Use Types [...] Dept 07/04/21 Office Visit [facility] [place] 04/21/21 Telemedicine Monae Jorgensen APRN, COREMAKER PIPE [facility] [place] 02/24/21 Office Visit Vaughn Brad[facility] MD [facility] [place] Showing recent visits within past 182 [...] 01/10/2025 8:45 AM CDT Physical Therapy [facility] at [facility] [address] [facility], [place] [address] [place] [address] Monae Jorgensen, HISTOLOGY SPECIALIST, COREMAKER PIPE #2 [facility] [address] [place] [address] Aishwarya Deluca, PT [place] Discharge Disposition: Discharged to home or Selfcare 01/19/2025 8:40 AM CDT Office Visit [facility] #2 [place] [address] Kasey Williamson, DO 2 [facility]. [address] [place] [address] documented as of this encounter Visit Diagnoses [...] documented as of this encounter Care Teams Farm General Manager Relationship Specialty Start Date End Date Vaughn Bradshaw MD PCP - General Family Medicine 05/18/18 08/26/23 Kasey Williamson DO 2 [facility] [address] [place] [address] PCP - General Family Medicine 09/14/23 Claudia Horn APRN [address] [place] [address] Advanced Practice Nurse 08/16/18 Vicenta Raymond DO [address] [address] Consulting Physician Obstetrics & Gynecology 09/25/21 Gus Chowdary MD #[address] [facility] [address] [place] [address] Consulting Physician Colon and Rectal Surgery 07/23/22 Virginie Reyes, RN [place] Nurse Finance Executive 09/14/23 09/14/23 Virginie Reyes, RN [place] Nurse Finance Executive 11/19/23 11/29/23 Virginie Reyes, RN [place] Nurse Finance Executive 12/07/23 05/15/24 Kelley Lopez APRN, COREMAKER PIPE #2 [facility], [address] [place] [address] Nurse Practitioner Advanced Practice Nurse 12/09/23 02/22/24 Virginie Reyes, RN [place] Nurse Finance Executive 11/16/24 11/16/24 documented as of this encounter
--- OUTSIDE RECORDS SUMMARY | 2025-01-05 17:22 | XMS_ITS | Encounter Summary ---
Author Organization [facility] Address [address] [place] [address] Phone Care Team Providers Care Kettle Loader Name Role Phone Vaughn Bradshaw MD Primary Care Provider [phone] Claudia Horn DIE DEVELOPER Unavailable [phone] Vicenta Raymond DO Unavailable [phone] Gus Chowdary MD Unavailable Kasey Williamson DO Primary Care Provider [phone] Virginie Reyes RN Unavailable Unavailable Virginie Reyes RN Unavailable Unavailable Virginie Reyes RN Unavailable Unavailable Kelley Lopez DIE DEVELOPER, TRADESHOW WORKER Unavailable [phone] Virginie Reyes RN Unavailable Unavailable Reason for Visit * Reason Comments Medication Refill Encounter Details Date Type Department Care Team (Late st Contact Info) Description 07/22/2021 Refill [facility] #2 [place] [address] Vaughn Bradshaw MD #1 [place] [address] Medication Refill Social History Tobacco Use Types [...] Alfonso 04/21/21 Telemedicine Monae Jorgensen APRN, FIGUEROA [facility] [place] 02/24/21 Office Visit Vaughn Bradshaw MD [facility] [place] Showing recent visits within past 182 [...] [place] 04/21/21 Telemedicine Monae Jorgensen APRN, FIGUEROA [facility] [place] 02/24/21 Office Visit Vaughn Bradshaw MD [facility] 01/20/21 Office Visit Vaughn Bradshaw MD [facility] 12/09/20 Office Visit Vaughn Bradshaw MD [facility] 11/28/20 Telemedicine Vaughn Bradshaw MD [facility] 10/03/20 Office Visit Vaughn Bradshaw MD [facility] [place] Showing recent visits within past 365 [...] [facility] at [facility] [address] [facility], [address] [place] [address] Monae Jorgensen APRN, TRADESHOW WORKER #2 [facility] [address] [place] [address] Aishwarya Deluca, PT [place] Discharge Disposition: Discharged to home or Selfcare 01/19/2025 8:40 AM CDT Office Visit [facility] Family [facility] #2 [place] [address] Kasey Williamson DO [address] [address] documented as of this encounter Visit Diagnoses [...] documented as of this encounter Care Teams Kettle Loader Relationship Specialty Start Date End Date Vaughn Bradshaw MD PCP - General Family Medicine 05/18/18 08/26/23 Kasey Williamson DO 2 [facility] [address] [place] [address] PCP - General Family Medicine 09/14/23 Claudia Horn, DIE DEVELOPER [address] [place] [address] Advanced Practice Nurse 08/16/18 Vicenta Raymond DO [address] [place] [place] [address] Consulting Physician Obstetrics & Gynecology 09/25/21 Gus Chowdary MD #2 [facility] [address] [place] [address] Consulting Physician Colon and Rectal Surgery 07/23/22 Virginie Reyes, RN [place] Nurse Engine Boss 09/14/23 09/14/23 Virginie Reyes, RN [place] Nurse Engine Boss 11/19/23 11/29/23 Virginie Reyes, RN [place] Nurse Engine Boss 12/07/23 05/15/24 Kelley Lopez, DIE DEVELOPER, TRADESHOW WORKER #2 [facility], [facility] [address] [place] [address] Nurse Practitioner Advanced Practice Nurse 12/09/23 02/22/24 Virginie Reyes, RN [place] Nurse Engine Boss 11/16/24 11/16/24 documented as of this encounter
--- OUTSIDE RECORDS SUMMARY | 2025-01-05 17:22 | XMS_ITS | Encounter Summary ---
Author Organization [facility] Address [address] [place] [address] Phone Care Team Providers Care Speed Belt Sander Tender Name Role Phone Vaughn Bradshaw MD Primary Care Provider [phone] Claudia Horn FIELD BROOMER Unavailable [phone] Vicenta Raymond DO Unavailable Gus Chowdary MD Unavailable Kasey Williamson DO Primary Care Provider [phone] Virginie Reyes RN Unavailable Unavailable Virginie Reyes RN Unavailable Unavailable Virginie Reyes RN Unavailable Unavailable Kelley Lopez FIELD BROOMER, ZOO KEEPER Unavailable [phone] Virginie Reyes RN Unavailable Unavailable Reason for Visit * Reason Comments Medication Refill Encounter Details Date Type Department Care Team (Late st Contact Info) Description 06/24/2021 Refill [facility] #2 [place] [address] Vaughn Bradshaw MD #1 [place] [address] Medication Refill Social History Tobacco Use Types [...] Description 01/10/2025 8:45 AM CDT Physical [facility] [address], [facility] [address] [place] [address] Monae Jorgensen APRN, ZOO KEEPER #2 [facility] [address] [place] [address] Aishwarya [place]uca, PT [place] Discharge Disposition: Discharged to home or Selfcare 01/19/2025 8:40 AM CDT Office Visit [facility] [place] [facility]2 [facility] [place] [address] Kasey Williamson DO 2 [facility] [place] [address] documented as of this encounter Visit Diagnoses [...] documented as of this encounter Care Teams Speed Belt Sander Tender Relationship Specialty Start Date End Date Vaughn Bradshaw MD PCP - General Family Medicine 05/18/18 08/26/23 Kasey Williamson DO [address] [address] PCP - General Family Medicine 09/14/23 Claudia Horn, FIELD BROOMER [address] [place] [address] Advanced Practice Nurse 08/16/18 Vicenta Raymond DO [address] [place] [address] Consulting Physician Obstetrics & Gynecology 09/25/21 Gus Chowdary MD #2 [facility] [place] [address] [place] [address] Consulting Physician Colon and Rectal Surgery 07/23/22 Virginie Reyes, RN [place] Nurse Tar Kettle Runner 09/14/23 09/14/23 Virginie Reyes, RN [place] Nurse Tar Kettle Runner 11/19/23 11/29/23 Virginie Reyes, RN [place] Nurse Tar Kettle Runner 12/07/23 05/15/24 Kelley Lopez, FIELD BROOMER, ZOO KEEPER #2 [facility], [address] [place] [address] Nurse Practitioner Advanced Practice Nurse 12/09/23 02/22/24 Virginie Reyes, RN [place] Nurse Tar Kettle Runner 11/16/24 11/16/24 documented as of this encounter
--- OUTSIDE RECORDS SUMMARY | 2025-01-05 17:22 | XMS_ITS | Encounter Summary ---
Author Organization [facility] Address [address] [place] [address] Phone Care Team Providers Care Healthcare Risk Control Consultant Name Role Phone Vaughn Bradshaw MD Primary Care Provider [phone] Claudia Horn ROVING TELLER Unavailable [phone] Vicenta Raymond DO Unavailable Gus Chowdary MD Unavailable Kasey Williamson DO Primary Care Provider [phone] Virginie Reyes RN Unavailable Unavailable Virginie Reyes RN Unavailable Unavailable Virginie Reyes RN Unavailable Unavailable Kelley Lopez ROVING TELLER, LEAD NET SOFTWARE DEVELOPER Unavailable [phone] Virginie Reyes RN Unavailable Unavailable Reason for Visit * Reason Comments Medication Refill Encounter Details Date Type Department Care Team (Late st Contact Info) Description 07/07/2021 Refill [facility] #2 [place] [address] Vaughn Bradshaw MD #1 [place] [address] Medication Refill Social History Tobacco Use Types [...] 01/10/2025 8:45 AM CDT Physical Therapy [facility] at [facility] [address] [facility], [address] [place] [address] Monae Jorgensen, ROVING TELLER, LEAD NET SOFTWARE DEVELOPER #2 [facility] [address] [place] [address] Aishwarya [place], PT [place] Discharge Disposition: Discharged to home or Selfcare 01/19/2025 8:40 AM CDT Office Visit [facility] #2 [place] [address] Kasey Williamson, DO 2 [facility]. [address] [place] [address] documented as of this encounter Visit Diagnoses [...] documented as of this encounter Care Teams Healthcare Risk Control Consultant Relationship Specialty Start Date End Date Vaughn Bradshaw MD PCP - General Family Medicine 05/18/18 08/26/23 Kasey Williamson DO 2 [facility] [address] [place] [address] PCP - General Family Medicine 09/14/23 Claudia Horn, ROVING TELLER [address] [place] [address] Advanced Practice Nurse 08/16/18 Vicenta Raymond DO [address] [place] [address] [place] [address] Consulting Physician Obstetrics & Gynecology 09/25/21 Gus Chowdary MD #2 [facility] [address] [place] [address] Consulting Physician Colon and Rectal Surgery 07/23/22 Virginie Reyes, FAYE [place] Nurse Competitive Intelligence Manager 09/14/23 09/14/23 Virginie Reyes RN [place] Nurse Competitive Intelligence Manager 11/19/23 11/29/23 Virginie Reyes RN [place] Nurse Competitive Intelligence Manager 12/07/23 05/15/24 Kelley Lopez, ROVING TELLER, LEAD NET SOFTWARE DEVELOPER #2 [facility], [address] [place] [address] Nurse Practitioner Advanced Practice Nurse 12/09/23 02/22/24 Virginie Reyes RN [place] Nurse Competitive Intelligence Manager 11/16/24 11/16/24 documented as of this encounter
--- OUTSIDE RECORDS SUMMARY | 2025-01-05 17:22 | XMS_ITS | Encounter Summary ---
Author Organization [facility] Address [address] [place] [address] Phone Care Team Providers Care Plugger Name Role Phone Vaughn Bradshaw MD Primary Care Provider [phone] Claudia Horn PROGRAM PROPOSALS COORDINATOR Unavailable Vicenta Raymond DO Unavailable Gus Chowdary MD Unavailable Kasey Williamson DO Primary Care Provider [phone] Virginie Reyes RN Unavailable Unavailable Virginie Reyes RN Unavailable Unavailable Virginie Reyes RN Unavailable Unavailable Kelley Lopez PROGRAM PROPOSALS COORDINATOR, PROFESSIONAL MODEL Unavailable [phone] Virginie Reyes RN Unavailable Unavailable Reason for Visit * Reason Comments Medication Refill Encounter Details Date Type Department Care Team (Late st Contact Info) Description 06/16/2021 Refill [facility] #[address] [place] [address] Vaughn Bradshaw MD #1 [place] [address] Medication Refill Social History Tobacco Use Types [...] 8:45 AM CDT Physical [facility] [address] [facility], [facility] [address] [place] [address] Monae Jorgensen, PROGRAM PROPOSALS COORDINATOR, PROFESSIONAL MODEL #2 [facility] [address] [place] [address] Aishwarya [place]uca, PT [place] Discharge Disposition: Discharged to home or Selfcare 01/19/2025 8:40 AM CDT Office Visit [facility] - [place] #[address] [place] [address] Kasey Williamson DO 2 [facility] [address] [place] [address] documented as of this encounter Visit Diagnoses [...] documented as of this encounter Care Teams Plugger Relationship Specialty Start Date End Date Vaughn Bradshaw MD PCP - General Family Medicine 05/18/18 08/26/23 Kasey Williamson DO 2 [address] [facility] [address] [place] [address] PCP - General Family Medicine 09/14/23 Claudia Horn APRN [address] [place] [address] Advanced Practice Nurse 08/16/18 Vicenta Raymond DO [address] [place] [address] [place], [place] [address], [place] [address] Consulting Physician Obstetrics & Gynecology 09/25/21 Gus Chowdary MD [facility] [address] [address] Consulting Physician Colon and Rectal Surgery 07/23/22 Virginie Reyes RN [place] Nurse Global Sourcing Manager 09/14/23 09/14/23 Virginie Reyes RN [place] Nurse Global Sourcing Manager 11/19/23 11/29/23 Virginie Reyes, RN [place] Nurse Global Sourcing Manager 12/07/23 05/15/24 Kelley Lopez, PROGRAM PROPOSALS COORDINATOR, PROFESSIONAL MODEL #2 [facility], [address] [place] [address] Nurse Practitioner Advanced Practice Nurse 12/09/23 02/22/24 Virginie Reyes RN [place] Nurse Global Sourcing Manager 11/16/24 11/16/24 documented as of this encounter
--- OUTSIDE RECORDS SUMMARY | 2025-01-05 17:22 | XMS_ITS | Encounter Summary ---
Author Organization [facility] Address [address] [place] [address] Care Team Providers Care Licensed Mortician Name Role Phone Terence Dela Cruz MD Primary Care Provider Unava ilTerence Reyes MD Primary Care Provider Unava ilTerence Reyes MD Primary Care Provider Unava ilable Terence Dela Cruz MD Primary Care Provider Unava ilable Terence Dela Cruz MD Primary Care Provider Unava ilable Encounter Details Date Type Department Care Team (Late st Contact Info) Description 03/10/2013 Abstract [facility] CONVERSION [address] [place] [address] , Generic MD Dary Social History Tobacco [...] on filedocumented in this encounter Care Teams Licensed Mortician Relationship Specialty Start Date End Date Terence Dela Cruz MD PCP - General 12/15/13 Terence Dela Cruz MD PCP - General 12/14/13 12/14/13 Terence Dela Cruz MD PCP - General 09/20/13 12/13/13 Terence Dela Cruz MD PCP - General 09/13/13 09/19/13 Terence Dela Cruz MD PCP - General 08/23/13 09/12/13 documented as of this encounter
--- OUTSIDE RECORDS SUMMARY | 2025-01-05 17:22 | XMS_ITS | Encounter Summary ---
Author Organization [facility] Address [address] [place] [address] Phone Care Team Providers Care Resin Coater Name Role Phone Vaughn Bradshaw MD Primary Care Provider [phone] Claudia Horn MAINTENANCE AND CUSTODIAN SUPERVISOR Unavailable Vicenta Raymond DO Unavailable Gus Chowdary MD Unavailable Kasey Williamson DO Primary Care Provider Virginie Reyes RN Unavailable Unavailable Virginie Reyes RN Unavailable Unavailable Virginie Reyes RN Unavailable Unavailable Kelley Lopez MAINTENANCE AND CUSTODIAN SUPERVISOR, ENERGY CONTROL OFFICER Unavailable [phone] Virginie Reyes RN Unavailable Unavailable Reason for Visit * Reason Comments Medication Refill Encounter Details Date Type Department Care Team (Late st Contact Info) Description 07/06/2021 Refill [facility] #2 [place] [address] Vaughn Bradshaw MD #1 [place] [address] Medication Refill Social History Tobacco Use Types [...] Dept 07/04/21 Office Visit Vaughn Bradshaw MD [facility] 04/21/21 Telemedicine Monae Jorgensen APRN, FIGUEROA [facility] 02/24/21 Office Visit Vaughn Bradshaw MD [facility] 01/20/21 Office Visit Vaughn Bradshaw MD [facility] 12/09/20 [facility] 11/28/20 Telemedicine Vaughn Bradshaw MD [facility] 10/03/20 Office Visit Vaughn Bradshaw MD [facility] Showing recent visits within past 365 days and meeting all other requirements Future Appointments No visits were found meeting these conditions. Showing future appointments within next 90 days and meeting all other requirements documented in this encounter Plan of Treatment Upcoming Encounters Date Type Department Care Team (Late st Contact Info) Description 01/10/2025 8:45 AM CDT Physical Therapy [facility] Rehab at [facility] [address], [facility] [address] [place] [address] Monae Jorgensen APRN, ENERGY CONTROL OFFICER #2 [facility] [address] [place] [address] Aishwarya Deluca, PT [place] Discharge Disposition: Discharged to home or Selfcare 01/19/2025 8:40 AM CDT Office Visit [facility] - Family Medicine - [place] [address] [place] [address] Kasey Williamson, DO 2 [facility] [address] [place] [address] documented as of this encounter Visit Diagnoses [...] documented as of this encounter Care Teams Resin Coater Relationship Specialty Start Date End Date Vaughn Bradshaw MD PCP - General Family Medicine 05/18/18 08/26/23 Kasey Williamson DO 2 [facility] [address] [place] [address] PCP - General Family Medicine 09/14/23 Claudia Horn APRN [address] [place] [address] Advanced Practice Nurse 08/16/18 Vicenta Raymond DO ONE PROFESSIONAL [facility] [address] [place] [address] Consulting Physician Obstetrics & Gynecology 09/25/21 Gus Chowdary MD #[address] [facility] [address] [place] [address] Consulting Physician Colon and Rectal Surgery 07/23/22 Virginie Reyes, RN [place] Nurse Fish Stringer Assembler 09/14/23 09/14/23 Virginie Reyes, RN [place] Nurse Fish Stringer Assembler 11/19/23 11/29/23 Virginie Reyes, RN [place] Nurse Fish Stringer Assembler 12/07/23 05/15/24 Kelley Lopez, MAINTENANCE AND CUSTODIAN SUPERVISOR, ENERGY CONTROL OFFICER #[address] [facility], [facility] [address] [place] [address] Nurse Practitioner Advanced Practice Nurse 12/09/23 02/22/24 Virginie Reyes, RN [place] Nurse Fish Stringer Assembler 11/16/24 11/16/24 documented as of this encounter
--- OUTSIDE RECORDS SUMMARY | 2025-01-05 17:22 | XMS_ITS | Encounter Summary ---
Author Organization [facility] Address [address] [place] [address] Phone Care Team Providers Care Learning Facilitator Name Role Phone Vaughn Bradshaw MD Primary Care Provider [phone] Claudia Horn DIRECTOR RADIATION ONCOLOGY Unavailable [phone] Vicenta Raymond DO Unavailable [phone] Gus Chowdary MD Unavailable Kasey Williamson DO Primary Care Provider [phone] Virginie Reyes RN Unavailable Unavailable Virginie Reyes RN Unavailable Unavailable Virginie Reyes RN Unavailable Unavailable Kelley Lopez DIRECTOR RADIATION ONCOLOGY, DELIVERY MAN Unavailable [phone] Virginie Reyes RN Unavailable Unavailable Reason for Visit * Reason Onset Date Comments Medication Refill 06/23/2021 Encounter Details Date Type Department Care Team (Late st Contact Info) Description 06/23/2021 Refill [facility] - Family [facility] #2 [place] [id number] Vaughn Bradshaw MD #1 [place] [address] Medication Refill Social History Tobacco Use Types [...] Dept 04/21/21 Telemedicine Monae Jorgensen APRN, FIGUEROA [facility] [place] [place] 02/24/21 Office Visit Vaughn Bradsahw MD [facility] 01/20/21 Office Visit Vaughn Bradshaw MD [facility] 12/09/20 Office Visit Vaughn Bradshaw MD [facility] 11/28/20 Telemedicine Vaughn Bradshaw MD [facility] 10/03/20 Office Visit Vaughn Bradshaw MD [facility] Showing recent visits within past 365 days [...] physician/RUTH review. Refill encounter routed to nurse Irasemaript's pool for processing. documented in this encounter Plan of Treatment Upcoming Encounters Date Type Department Care Team (Late st Contact Info) Description 01/10/2025 8:45 AM CDT [facility] 200 [facility], [facility] [address] [place] [address] Monae Jorgensen, DIRECTOR RADIATION ONCOLOGY, DELIVERY MAN #2 [facility] [address] [place] [address] Aishwarya Deluca, PT [place] Discharge Disposition: Discharged to home or Selfcare 01/19/2025 8:40 AM CDT Office Visit [facility] - Family Medicine - [place] [address] [place] [address] Kasey Williamson DO [address] [address] documented as of this encounter Visit Diagnoses [...] documented as of this encounter Care Teams Learning Facilitator Relationship Specialty Start Date End Date Vaughn Bradshaw MD PCP - General Family Medicine 05/18/18 08/26/23 Kasey Williamson DO [address] [address] PCP - General Family Medicine 09/14/23 Claudia Horn, DIRECTOR RADIATION ONCOLOGY [address] [place] [address] Advanced Practice Nurse 08/16/18 Vicenta Raymnod DO [address] [place] [address] [place], [place] [address] [place] [address] Consulting Physician Obstetrics & Gynecology 09/25/21 Gus Chowdary MD #[address] [facility] [address] [place] [address] Consulting Physician Colon and Rectal Surgery 07/23/22 Virginie Reyes, RN [place] Nurse Computer Lab Aide 09/14/23 09/14/23 Virginie Reyes, RN [place] Nurse Computer Lab Aide 11/19/23 11/29/23 Virginie Reyes, RN [place] Nurse Computer Lab Aide 12/07/23 05/15/24 Kelley Lopez, DIRECTOR RADIATION ONCOLOGY, DELIVERY MAN [address] [facility], [address] [place] [address] Nurse Practitioner Advanced Practice Nurse 12/09/23 02/22/24 Virginie Reyes, RN [place] Nurse Computer Lab Aide 11/16/24 11/16/24 documented as of this encounter
--- OUTSIDE RECORDS SUMMARY | 2025-01-05 17:22 | XMS_ITS | Encounter Summary ---
Author Organization [facility] Address [address] [place] [address] Phone Care Team Providers Care Chef Name Role Phone Vaughn Bradshaw MD Primary Care Provider [phone] Claudia Horn CHAMBER OF COMMERCE DIVISION MANAGER Unavailable Vicenta Raymond DO Unavailable Gus Chowdary MD Unavailable Kasey Williamson DO Primary Care Provider [phone] Virginie Reyes RN Unavailable Unavailable Virginie Reyes RN Unavailable Unavailable Virginie Reyes RN Unavailable Unavailable Kelley Lopez CHAMBER OF COMMERCE DIVISION MANAGER, SAP SPECIALIST Unavailable [phone] Virginie Reyes RN Unavailable Unavailable Reason for Visit * Reason Comments Medication Refill Encounter Details Date Type Department Care Team (Late st Contact Info) Description 02/27/2021 Refill [facility] Family Medicine [facility] #2 [place] [address] Vaughn Bradshaw MD #1 [place] [address] Medication Refill Social History Tobacco Use Types [...] COVID-19? No / Unsure 02/24/2021 1:00 PM STIFF STRAW HAT WASHER documented as of this encounter Miscellaneous Notes [...] Provider Dept 04/22/21 Appointment Vaughn Bradshaw MD [facility] Showing future appointments within next 90 days and meeting all other requirements Passed - Has an encounter in the past 6 months with a depression or anxiety visit diagnosis F STRAW HAT WASHER documented in this encounter Plan of Treatment Upcoming Encounters Date Type Department Care Team (Late st Contact Info) Description 01/10/2025 8:45 AM CDT Physical Therapy [facility] Rehab at [facility] 200 [facility], [facility] [address] [place] [address] Monae Jorgensen, CHAMBER OF COMMERCE DIVISION MANAGER, SAP SPECIALIST #2 [facility] [address] [place] [address] Aishwarya Deluca, PT [place] Discharge Disposition: Discharged to home or Selfcare 01/19/2025 8:40 AM CDT Office Visit [facility] Medical Group - Family Medicine - [place] #2 [place] [address] Kasey Williamson, DO 2 [facility]. [address] [place] [address] documented as of this encounter Visit Diagnoses Diagnosis Anxiety and depression Dysthymic disorder documented in this encounter Additional Health Concerns Infection Onset Date Last Indicated Resolved Time COVID - 19 03/31/2021 03/31/2021 03/31/2021 9:59 PM STIFF STRAW HAT WASHER COVID - 19 Confirmed 03/31/2021 03/31/2021 12:16 AM STIFF STRAW HAT WASHER COVID - 19 01/14/2022 01/14/2022 01/15/2022 7:59 AM CDT Respiratory Rule-Out 01/14/2022 01/14/2022 8:08 AM CDT COVID - 19 11/15/2023 11/15/2023 11/15/2023 11:4 7 PM CDT VRE 08/18/2024 08/18/2024 Assessment Noted Time PHQ-9 Depression Total Score: 0 10/04/19 21 9:00 AM CDT documented as of this encounter Care Teams Chef Relationship Specialty Start Date End Date Vaughn Bradshaw MD PCP - General Family Medicine 05/18/18 08/26/23 Kasey Williamson DO 2 [facility]. [address] [place] [address] PCP - General Family Medicine 09/14/23 Claudia Horn APRN [address] [place] [address] Advanced Practice Nurse 08/16/18 Vicenta Raymond DO ONE PROFESSIONAL [facility] [address] [place] [address] Consulting Physician Obstetrics & Gynecology 09/25/21 Gus Chowdary MD #2 [facility] [address] [place] [address] Consulting Physician Colon and Rectal Surgery 07/23/22 Virginie Reyes, RN [place] Nurse Filler And Trimmer 09/14/23 09/14/23 Virginie Reyes, RN [place] Nurse Filler And Trimmer 11/19/23 11/29/23 Virginie Reyes, RN [place] Nurse Filler And Trimmer 12/07/23 05/15/24 Kelley Lopez APRN, SAP SPECIALIST #2 [facility] [address] [place] [address] Nurse Practitioner Advanced Practice Nurse 12/09/23 02/22/24 Virginie Reyes RN [place] Nurse Filler And Trimmer 11/16/24 11/16/24 documented as of this encounter
--- OUTSIDE RECORDS SUMMARY | 2025-01-05 17:22 | XMS_ITS | Encounter Summary ---
Author Organization [facility] Address [address] [place] [address] Phone Care Team Providers Care Selector Packer Name Role Phone Claudia Horn CORRUGATED FASTENER DRIVER Unavailable [phone] Vicenta Raymond DO Unavailable Gus Chowdary MD Unavailable Kasey Williamson DO Primary Care Provider Virginie Reyes RN Unavailable Unavailable Virginie Reyes RN Unavailable Unavailable Reason for Visit * Reason Comments Medication Refill Encounter Details Date Type Department Care Team (Late st Contact Info) Description 05/03/2024 Refill [facility] Family [facility] #2 [place] [id number] Vaughn Bradshaw MD #1 [place] [address] Medication Refill Social History Tobacco Use Types Packs/Day Years Used Date Smoking Tobacco: Never Smokeless Tobacco: Never Alcohol Use Standard Drinks/Week Comments No 0 (1 standard drink = 0.6 oz pur e alcohol) [facility] Utilities Answer Date Recorded In the past 12 months has th e Clerk, gas, oil, or water [employer] threatened to shut off services in your [...] How often do you attend chur or roman catholic services? Never 05/06/2024 Do you belong to [...] Total Score - Questions 1-9 0 11/20 [facility] - Occupational [...] place to sleep or slept in a fdc (including now)? No 08/04/2023 Housing Stability Vital [...] or living in a fdc (including now)? Yes 05/06/2024 Education Answer Date [...] of Assessment Author 0 05/06/2024 10:23 AM SURFACE ROOM SHOP OPTICIAN Bryce, System Background * Q1: How often do you have a drink containing alcohol? Answer Date of Assessment Author Never 05/06/2024 10:23 AM SURFACE ROOM SHOP OPTICIAN Natet, System Background * Q2: How many drinks containing alcohol do you have on a typical day when you are drinking? Answer Date of Assessment Author Patient does not drink 05/06/2024 10:23 AM SURFACE ROOM SHOP OPTICIAN Jonny mcguire, System Background * Q3: How often do you have six or more drinks on one occasion? Answer Date of Assessment Author Never 05/06/2024 10:23 AM SURFACE ROOM SHOP OPTICIAN Bryce, System Background documented as of this encounter Miscellaneous Notes * Telephone Encounter - Maria T Alejandre RN - 05/03/2024 12:00 PM CST Images from the original note were not included. Pramipexole Dihydrochloride Dispensed Days Supply Quantity Provider Pharmacy PRAMIPEXOLE 0.5MG TABLETS 04/26/2024 90 45 Each Vaughn Bradshaw MD [facility] #... [facility] documented in this encounter Plan of Treatment Upcoming Encounters Date Type Department Care Team (Late st Contact Info) Description 01/10/2025 8:45 AM CDT [facility] 200 [facility], [facility] [address] [place] [address] Monae Jorgensen, CORRUGATED FASTENER DRIVER, SENIOR ELECTRICAL PROJECT MANAGER #[address] [address] Aishwarya Deluca, PT [place] Discharge Disposition: Discharged to home or Selfcare 01/19/2025 8:40 AM CDT Office Visit [facility] - Family [facility] #2 [place] [address] Kasey Williamson, DO 2 [facility] [address] [place] [address] documented as of this encounter Visit Diagnoses Diagnosis Restless leg syndrome Restless legs syndrome (RLS) documented in this encounter Additional Health Concerns Infection Onset Date Last Indicated Resolved Time VRE 08/18/2024 08/18/2024 Assessment Noted Time PHQ-9 Depression Total Score: 0 12/07/19 24 1:29 PM CDT documented as of this encounter Care Teams Selector Packer Relationship Specialty Start Date End Date Kasey Williamson DO [address] [facility] [address] [place] [address] PCP - General Family Medicine 09/14/23 Claudia Horn, CORRUGATED FASTENER DRIVER [address] [place] [address] Advanced Practice Nurse 08/16/18 Vicenta Raymond DO ONE PROFESSIONAL [facility] [address] [place] [address] Consulting Physician Obstetrics & Gynecology 09/25/21 Gus Chowdary MD #2 [facility] [address] [place] [address] Consulting Physician Colon and Rectal Surgery 07/23/22 Virginie Reyes, FAYE [place] Nurse Pneumatic Tube Fitter 12/07/23 05/15/24 Virginie Reyes RN [place] Nurse Pneumatic Tube Fitter 11/16/24 11/16/24 documented as of this encounter
--- OUTSIDE RECORDS SUMMARY | 2025-01-05 17:22 | XMS_ITS | Clinical Summary ---
Author Organization [facility] Address [address] [place] [address] Care Team Providers Care Dye Box Operator Name Role Phone Terence Dela Cruz [...] Vaccines (1 of 2) 10/01/2013 COVID-19 Vaccine ( - 2023-2 5 season) 2024 Influenza Adult (#1) 2024 RSV Immunization or 60+ Years (1 - [...] age to complete this topic Care Teams Dye Box Operator Relationship Specialty Start Date End Date Terence Dela Cruz MD PCP - General 12/15/13
--- OUTSIDE RECORDS SUMMARY | 2025-01-05 17:22 | XMS_ITS | Encounter Summary ---
Author Organization [facility] Address [address] [place] [address] Care Team Providers Care Lot Worker Name Role Phone Terence Dela Cruz MD Primary Care Provider Unava ilable Encounter Details Date Type Department Care Team (Late st Contact Info) Description 01/28/2018 Abstract [facility] CONVERSION [address] [place] [address] , Generic Conversion, Social History Tobacco Use [...] on filedocumented in this encounter Care Teams Lot Worker Relationship Specialty Start Date End Date Terence Dela Cruz MD PCP - General 12/15/13 documented as of this encounter
--- OUTSIDE RECORDS SUMMARY | 2025-01-05 17:22 | XMS_ITS | Encounter Summary ---
Author Organization [facility] Address [address] [place] [address] Phone Care Team Providers Care Fruit Rancher Name Role Phone Vaughn Bradshaw MD Primary Care Provider [phone] Claudia Horn BISQUE BRUSHER Unavailable Vicenta Raymond DO Unavailable Gus Chowdary MD Unavailable Ksaey Williamson DO Primary Care Provider [phone] Virginie Reyes RN Unavailable Unavailable Virginie Reyes RN Unavailable Unavailable Virginie Reyes RN Unavailable Unavailable Kelley Lopez BISQUE BRUSHER, MANAGER GLOBAL Unavailable [phone] Virginie Reyes RN Unavailable Unavailable Reason for Visit * Reason Comments Medication Refill Encounter Details Date Type Department Care Team (Late st Contact Info) Description 08/23/2021 Refill [facility] - Family Medicine [facility] #2 [place] [address] Vaughn Bradshaw MD #1 [place] [address] Medication Refill Social History Tobacco Use Types [...] Dept 07/04/21 Office Visit Vaughn Bradshaw MD [facility] 04/21/21 Telemedicine Monae Jorgensen APRN, MANAGER GLOBAL [facility] Showing recent visits within past 182 days [...] AM CDT Physical Therapy [facility] at [facility] 200 [facility], [facility] [address] [place] [address] Monae Jorgensen APRN, MANAGER GLOBAL #2 [facility] [address] [place] [address] Aishwarya Deluca, PT [place] Discharge Disposition: Discharged to home or Selfcare 01/19/2025 8:40 AM CDT Office Visit [facility] Medical Group - Family Medicine - [place] #2 [place] [address] Kasey Williamson, DO 2 [facility] [address] [place] [address] documented as of this encounter Visit Diagnoses [...] documented as of this encounter Care Teams Fruit Rancher Relationship Specialty Start Date End Date Vaughn Bradshaw MD PCP - General Family Medicine 05/18/18 08/26/23 Kasey Williamson DO 2 [facility] [address] [place] [address] PCP - General Family Medicine 09/14/23 Claudia Horn APRN [address] [place] [address] Advanced Practice Nurse 08/16/18 Vicenta Raymond DO ONE PROFESSIONAL [address] [address] Consulting Physician Obstetrics & Gynecology 09/25/21 Gus Chowdary MD #2 [facility] [address] [place] [address] Consulting Physician Colon and Rectal Surgery 07/23/22 Virginie Reyes RN [place] Nurse Director Of Curriculum 09/14/23 09/14/23 Virginie Reyes RN [place] Nurse Director Of Curriculum 11/19/23 11/29/23 Virginie Reyes RN [place] Nurse Director Of Curriculum 12/07/23 05/15/24 Kelley Lopez, BISQUE BRUSHER, MANAGER GLOBAL #2 [facility], [address] [place] [address] Nurse Practitioner Advanced Practice Nurse 12/09/23 02/22/24 Virginie Reyes RN [place] Nurse Director Of Curriculum 11/16/24 11/16/24 documented as of this encounter
--- OUTSIDE RECORDS SUMMARY | 2025-01-05 17:22 | XMS_ITS | Encounter Summary ---
Author Organization [facility] Address [address] [place] [address] Phone Care Team Providers Care Electronic Development Technician Name Role Phone Claudia Horn STONE CLEANER Unavailable [phone] Vicenta Raymond DO Unavailable [phone] Gus Chowdary MD Unavailable Kasey Williamson DO Primary Care Provider [phone] Virginie Reyes RN Unavailable Unavailable Virginie Reyes RN Unavailable Unavailable Reason for Visit * Reason Comments Medication Refill Encounter Details Date Type Department Care Team (Late st Contact Info) Description 04/15/2024 [facility]ill [facility] #2 [place] [phone] Vaughn Bradshaw MD #1 [place] [address] Medication Refill Social History Tobacco Use Types Packs/Day Years Used Date Smoking Tobacco: Never Smokeless Tobacco: Never Alcohol Use Standard Drinks/Week Comments No 0 (1 standard drink = 0.6 oz pur e alcohol) [facility] Utilities Answer Date Recorded In the past 12 months has Sonos, gas, oil, or water cookdinner threatened to shut off services in your home? No 12/07/2023 Social Connection and Isolation Panel Answer Date Recorded In a typical week, how many times do you talk on the phone with family, friends, or neighbors? Once a week 12/07/2023 How often do you get together with friends or re latives? Once a week 12/07/2023 How often do you attend anabaptism or scientology serv ices? Never 12/07/2023 Do you belong [...] Total Score - Questions 1-9 0 11/20 [facility] of Occupat ional Health - Occupational [...] slept in a custodial (including now)? No 08/04/2023 Housing Stability Vital Sign Answer Jose e Recorded In the last 12 months, was t here a time when you were not able to pay the mortgage or rent on time? No 12/07/2023 In the past 12 months, how m any times have you moved where you were living? 0 12/07/2023 At any time in the past 12 m [facility], were you homeless or living in a custodial (including now)? No 12/07/2023 Education Answer Date [...] Del Rio RN - 04/15/2024 12:02 PM NURSING HOME PHYSICIAN Signed 5 days ago (04/10/2024): busPIRone HCl 7.5 MG Tablet Sig: Take 1 Tablet by mouth 2 times daily. Disp: 180 Tablet Refills: 2 Signed by: Kasey Williamson DO ING HOME PHYSICIAN documented in this encounter Plan of Treatment Upcoming Encounters Date Type Department Care Team (Late st Contact Info) Description 01/10/2025 8:45 AM CDT [facility] [address] [facility], [address] [place] [address] Monae Jorgensen, STONE CLEANER, IT APPLICATIONS ANALYST #2 [facility] [address] [place] [address] Aishwarya Deluca, PT [place] Discharge Disposition: Discharged to home or Selfcare 01/19/2025 8:40 AM CDT Office Visit [facility] Group - Family Medicine [facility] #2 [place] [address] Kasey Williamson DO 2 [facility] [address] [place] [address] documented as of this encounter Visit Diagnoses Diagnosis Anxiety and depression Dysthymic disorder documented in this encounter Additional Health Concerns Infection Onset Date Last Indicated Resolved Time VRE 08/18/2024 08/18/2024 Assessment Noted Time PHQ-9 Depression Total Score: 0 12/07/19 24 1:29 PM CDT documented as of this encounter Care Teams Electronic Development Technician Relationship Specialty Start Date End Date Kasey Williamson DO 2 [facility] [address] [place] [address] PCP - General Family Medicine 09/14/23 Claudia Horn APRN [address] [place] [address] Advanced Practice Nurse 08/16/18 Vicenta Raymond DO [address] [place] [address] [place] [address] Consulting Physician Obstetrics & Gynecology 09/25/21 Gus Chowdary MD #[address] [address] Consulting Physician Colon and Rectal Surgery 07/23/22 Virginie Reyes, FAYE [place] Nurse Property Management Bookkeeper 12/07/23 05/15/24 Virginie Reyes RN [place] Nurse Property Management Bookkeeper 11/16/24 11/16/24 documented as of this encounter
--- OUTSIDE RECORDS SUMMARY | 2025-01-05 17:22 | XMS_ITS | Encounter Summary ---
Author Organization [facility] Address [address] [place] [address] Phone Care Team Providers Care Cassandra Consultant Name Role Phone Claudia Horn BATTERY MECHANIC Unavailable [phone] Vicenta Raymond DO Unavailable Gus Chowdary MD Unavailable Kasey Williamson DO Primary Care Provider Virginie Reyes RN Unavailable Unavailable Virginie Reyes RN Unavailable Unavailable Kelley Lopez BATTERY MECHANIC, UTILITY ARBORIST Unavailable [phone] Virginie Reyes RN Unavailable Unavailable Reason for Visit * Reason Comments Medication Refill Encounter Details Date Type Department Care Team (Late st Contact Info) Description 11/09/2023 Refill [facility] - Family [facility] #2 [place] [address] Vaughn Bradshaw MD #1 [place] [address] Medication Refill Social History Tobacco Use Types Packs/Day Years Used Date Smoking Tobacco: Never Smokeless Tobacco: Never Alcohol Use Standard Drinks/Week Comments No 0 (1 standard drink = 0.6 oz pur e alcohol) [facility] Utilities Answer Date Recorded In [...] often do you attend chur ch or episcopal services? Never 08/04/2023 Do you belong to any clubs o r organizations such as quaker groups, unions, fraternal or athletic groups, or [...] Total Score - Questions 1-9 2 04/2023 [facility] of Occupat ional Health - Occupational [...] slept in a residential (including now)? No 08/04/2023 Education Answer Date [...] 10/31/2023 90 180 Each Vaughn Bradshaw MD [facility] #... FLUOXETINE 20MG CAPSULES 07/30/2023 90 180 Each Vaughn Bradshaw MD [facility] #... Levothyroxine Sodium Dispensed Days Supply Quantity Provider Pharmacy LEVOTHYROXINE 0.05MG (50MCG) TAB 10/31/2023 90 90 Each Vaughn Bradshaw MD [facility] #... LEVOTHYROXINE 0.05MG (50MCG) TAB 07/30/2023 90 90 Each Vaughn Bradshaw [facility]... documented in this encounter Plan of Treatment Upcoming Encounters Date Type Department Care Team (Late st Contact Info) Description 01/10/2025 8:45 AM CDT [facility] [address] [facility], [address] [place] [address] Monae Jorgensen APRN, UTILITY ARBORIST #2 [facility] [address] [place] [address] Aishwarya Deluca, PT [place] Discharge Disposition: Discharged to home or Selfcare 01/19/2025 8:40 AM CDT Office Visit [facility] Medical Group - Family Medicine - [place] #2 [place] [address] Kasey Williamson DO [address] [address] documented as of this encounter Visit Diagnoses Diagnosis Moderate episode of recurrent major depressive disorder documented in this encounter Additional Health Concerns Infection Onset Date Last Indicated Resolved Time COVID - 19 11/15/2023 11/15/2023 11/15/2023 11:4 7 PM CDT VRE 08/18/2024 08/18/2024 Assessment Noted Time PHQ-9 Depression Total Score: 2 03/23/19 24 8:19 AM SOLUTION MAKER documented as of this encounter Care Teams Cassandra Consultant Relationship Specialty Start Date End Date Kasey Williamson DO 2 [facility] [address] [place] [address] PCP - General Family Medicine 09/14/23 Claudia Horn, BATTERY MECHANIC [address] [place] [address] Advanced Practice Nurse 08/16/18 Vicenta Raymond DO [address] [place] [address] Consulting Physician Obstetrics & Gynecology 09/25/21 Gus Chowdary MD #[address] [facility] [address] [place] [address] Consulting Physician Colon and Rectal Surgery 07/23/22 Virginie Reyes RN [place] Nurse Food And Nutrition Professor 11/19/23 11/29/23 Virginie Reyes, RN [place] Nurse Food And Nutrition Professor 12/07/23 05/15/24 Kelley Lopez, BATTERY MECHANIC, UTILITY ARBORIST #2 [facility] [address] [place] [address] Nurse Practitioner Advanced Practice Nurse 12/09/23 02/22/24 Virginie Reyes RN [place] Nurse Food And Nutrition Professor 11/16/24 11/16/24 documented as of this encounter
--- OUTSIDE RECORDS SUMMARY | 2025-01-05 17:22 | XMS_ITS | Encounter Summary ---
Author Organization [facility] Address [address] [facility] [place] [address] Care Team Providers Care Gravity Prospecting Observer Helper Name Role Phone Kasey Williamson DO Primary Care Provider [phone] Reason for Visit * Reason Comments Refill Request Encounter Details Date Type Department Care Team (Late st Contact Info) Description 09/13/2024 Refill [facility] - Nephrology [address] [place] [address], [place] [address] Allison Leavitt, SHOT LIGHTER-BOTTLE ASSEMBLER [address] [place] [address] [facility] [place] [address] Refill Request Social History Tobacco Use Types [...] Recorded Patient Health Questionnaire-2 Score 2 01/11/2023 [facility] of Occupat ional Health - Occupational Stress [...] any time in the past 12 m [facility], were you homeless or living in a residential (including now)? No 08/19/2024 Comments No Sex and Gender Information Value Date Recorded Sex Assigned at Not on file Legal Sex Female 12:53 PM CABIN SUPERVISOR Gender Identity Not on file Sexual Orientation [...] [facility] - Sleep Services [address] [address] Mohan Alvarez MD [address] [place] [phone] 02/01/2025 12:30 PM CABIN SUPERVISOR Appointment [facility] MRI [address] [place] [phone] Jorge Tran MD [address] [place] [phone] 02/01/2025 2:30 PM CABIN SUPERVISOR Office Visit [facility] - GI [address] [place] [address] [place] [phone] Jorge Tran MD [address] [place] [phone] 02/12/2025 11:00 AM CABIN SUPERVISOR Office Visit [facility] - Endocrinology [address] [place] [address] [place] [address] Phoebe Joseph MD [address] [place] [address] [place] [phone] documented as of this encounter Goals Goal Patient Goal Type Associated Problems Recent Progress Patient-Stated? Author Medication Management General On track( 11:16 AM CDT) No Fidelia Lainez, RN Note: Expected end date: 1 year Interventions: Take all medications as prescribed Safety General On track( 11:16 AM CDT) No Melany Kuhn, RN Note: Expected end date: ongoing Interventions: Your nurse will assess your risk for falls/injury each visit Make and keep follow-up appointments General On track( 8:34 AM CDT) No Melany Kuhn, FAYE documented as of this encounter Visit Diagnoses Not on filedocumented in this encounter Care Teams Gravity Prospecting Observer Helper Relationship Specialty Start Date End Date Kasey Williamson DO [address] [place] [phone] PCP - General Family Medicine 12/27/23 documented as of this encounter
--- OUTSIDE RECORDS SUMMARY | 2025-01-05 17:22 | XMS_ITS | Encounter Summary ---
Author Organization [facility] Address [address] [place] [address] Phone Care Team Providers Care Hostess Host Name Role Phone Vaughn Bradshaw MD Primary Care Provider [phone] Claudia Horn PROPELLER ENGINEER Unavailable [phone] Vicenta Raymond DO Unavailable [phone] Gus Chowdary MD Unavailable Kasey Williamson DO Primary Care Provider [phone] Virginie Reyes RN Unavailable Unavailable Virginie Reyes RN Unavailable Unavailable Virginie Reyes RN Unavailable Unavailable Kelley Lopez PROPELLER ENGINEER, RETAIL FIELD SUPERVISOR Unavailable [phone] Virginie Reyes RN Unavailable Unavailable Reason for Visit * Reason Onset Date Comments Medication Refill 06/16/2021 Encounter Details Date Type Department Care Team (Late st Contact Info) Description 06/16/2021 Refill [facility] - Family [facility] #2 [place] [phone] Vaughn Bradshaw MD #1 [place] [address] Medication Refill Social History Tobacco Use Types [...] Provider Dept 04/21/21 Telemedicine Monae Jorgensen APRN, RETAIL FIELD SUPERVISOR [facility] 02/24/21 Office Visit Vaughn Bradshaw MD [...] 01/10/2025 8:45 AM CDT Physical Therapy [facility] [address] [facility], [address] [place] [address] Monae Jorgensen, PROPELLER ENGINEER, RETAIL FIELD SUPERVISOR #2 [facility] [address] [place] [address] Aishwarya Deluca, PT [place] Discharge Disposition: Discharged to home or Selfcare 01/19/2025 8:40 AM CDT Office Visit [facility] Family [facility] #2 [place] [address] Kasey Williamson DO [address] [address] documented as of this encounter Visit Diagnoses [...] documented as of this encounter Care Teams Hostess Host Relationship Specialty Start Date End Date Vaughn Bradshaw MD PCP - General Family Medicine 05/18/18 08/26/23 Kasey Williamson DO 2 [facility] [address] [place] [address] PCP - General Family Medicine 09/14/23 Claudia Horn, PROPELLER ENGINEER [address] [place] [address] Advanced Practice Nurse 08/16/18 Vicenta Raymond DO [address] [place] [address] Consulting Physician Obstetrics & Gynecology 09/25/21 Gus Chowdary MD #[address] [facility] [address] [place] [address] Consulting Physician Colon and Rectal Surgery 07/23/22 Virginie Reyes, RN [place] Nurse Police Academy Instructor 09/14/23 09/14/23 Virginie Reyes, RN [place] Nurse Police Academy Instructor 11/19/23 11/29/23 Virginie Reyes, RN [place] Nurse Police Academy Instructor 12/07/23 05/15/24 Kelley Lopez, PROPELLER ENGINEER, RETAIL FIELD SUPERVISOR #2 [facility] [address] [place] [address] Nurse Practitioner Advanced Practice Nurse 12/09/23 02/22/24 Virginie Reyes, RN [place] Nurse Police Academy Instructor 11/16/24 11/16/24 documented as of this encounter
--- OUTSIDE RECORDS SUMMARY | 2025-01-05 17:22 | XMS_ITS | Encounter Summary ---
Author Organization [facility] Address [address] [place] [address] Phone Care Team Providers Care Sunday [employer] Missionary Name Role Phone Vaughn Bradshaw MD Primary Care Provider [phone] Claudia Horn BLOOD DONOR RECRUITER SUPERVISOR Unavailable [phone] Vicenta Raymond DO Unavailable [phone] Gus Chowdary MD Unavailable Kasey Williamson DO Primary Care Provider [phone] Virginie Reyes RN Unavailable Unavailable Virginie Reyes RN Unavailable Unavailable Virginie Reyes RN Unavailable Unavailable Kelley Lopez BLOOD DONOR RECRUITER SUPERVISOR, GAS ENGINE OPERATOR GENERATORS Unavailable [phone] Virginie Reyes RN Unavailable Unavailable Reason for Visit * Reason Comments Medication Refill Encounter Details Date Type Department Care Team (Late st Contact Info) Description 08/25/2023 Refill [facility] Family [facility] #2 [place] [address] Vaughn Bradshaw MD #1 [place] [address] Medication Refill Social History Tobacco Use Types Packs/Day Years Used Date Smoking Tobacco: Never Smokeless Tobacco: Never Alcohol Use Standard Drinks/Week Comments No 0 (1 standard drink = 0.6 oz pur e alcohol) [facility] Utilities Answer Date Recorded In the past [...] often do you attend chur ch or lutheran services? Never 08/04/2023 Do you belong to [...] Total Score - Questions 1-9 2 04/2023 [facility] [place] of Occupat ional Health - Occupational Stress [...] slept in a fci (including now)? No 08/04/2023 Education Answer Date [...] 05/04/23 Office Visit Monae Jorgensen APRN, FIGUEROA [facility] 03/23/23 Office Visit Monae Jorgensen APRN, FIGUEROA [place] [facility] 03/01/23 Office Visit Monae Jorgensen APRN, FIGUEROA [place] Showing recent visits within past 182 days and meeting all other requirements Future Appointments Date Type Provider Dept 09/14/23 Appointment Kasey Williamson DO [facility] Showing future appointments within next 90 days and meeting all other requirements documented in this encounter Plan of Treatment Upcoming Encounters Date Type Department Care Team (Late st Contact Info) Description 01/10/2025 8:45 AM CDT Physical Therapy [facility]hab at [facility] [address] [facility], [facility] [address] [place] [address] Monae Jorgesnen APRN, GAS ENGINE OPERATOR GENERATORS #2 [facility] [address] [place] [address] Aishwarya Deluca, PT [place] Discharge Disposition: Discharged to home or Selfcare 01/19/2025 8:40 AM CDT Office Visit [facility] Medical Group - Family Medicine - [place] #2 [place] [address] Kasey Williamson DO 2 [facility] [address] [place] [address] documented as of this encounter Visit Diagnoses Diagnosis Type 2 diabetes mellitus with hyperglycemia, with long-term current use of insulin documented in this encounter Additional Health Concerns Infection Onset Date Last Indicated Resolved Time COVID - 19 11/15/2023 11/15/2023 11/15/2023 11:4 7 PM CDT VRE 08/18/2024 08/18/2024 Assessment Noted Time PHQ-9 Depression Total Score: 2 03/23/19 8:19 AM DICER MACHINE OPERATOR documented as of this encounter Care Teams [employer] Missionary Relationship Specialty Start Date End Date Vaughn Bradshaw MD PCP - General Family Medicine 05/18/18 08/26/23 Kasey Williamson DO 2 [facility] [address] [place] [address] PCP - General Family Medicine 09/14/23 Claudia Horn APRN [address] [place] [address] Advanced Practice Nurse 08/16/18 Vicenta Raymond DO [address] [address] Consulting Physician Obstetrics & Gynecology 09/25/21 Gus Chowdary MD #2 [facility] [address] [place] [address] Consulting Physician Colon and Rectal Surgery 07/23/22 Virginie Reyes, FAYE [place] Nurse Soap Worker 09/14/23 09/14/23 Virginie Reyes, RN [place] Nurse Soap Worker 11/19/23 11/29/23 Virginie Reyes, RN [place] Nurse Soap Worker 12/07/23 05/15/24 Kelley Lopez APRN, GAS ENGINE OPERATOR GENERATORS #2 [facility], [address] [place] [address] Nurse Practitioner Advanced Practice Nurse 12/09/23 02/22/24 Virginie eRyes, RN [place] Nurse Soap Worker 11/16/24 11/16/24 documented as of this encounter
--- OUTSIDE RECORDS SUMMARY | 2025-01-05 17:22 | XMS_ITS | Encounter Summary ---
Author Organization [facility] Address [address] [place] [address] Phone Care Team Providers Care System Operator Name Role Phone Vaughn Bradshaw MD Primary Care Provider [phone] Claudia Horn NETWORK SYSTEMS INTEGRATOR Unavailable Vicenta Raymond DO Unavailable [phone] Gus Chowdary MD Unavailable Kasey Williamson DO Primary Care Provider [phone] Virginie Reyes RN Unavailable Unavailable Virginie Reyes RN Unavailable Unavailable Virginie Reyes RN Unavailable Unavailable Kelley Lopez NETWORK SYSTEMS INTEGRATOR, VEST FRONT PRESSER Unavailable [phone] Virginie Reyes RN Unavailable Unavailable Reason for Visit * Reason Comments Medication Refill Encounter Details Date Type Department Care Team (Late st Contact Info) Description 06/18/2021 Refill [facility] Family Medicine [facility] #2 [place] [address] Vaughn Bradshaw MD #1 [place] [address] Medication Refill Social History Tobacco Use Types [...] provider in past 12 months or upcoming days Recent Visits Date Type Provider Dept [...] 8:45 AM CDT Physical Therapy [facility] at [facility] [address] [facility], [address] [place] [address] Monae Jorgensen APRN, VEST FRONT PRESSER #2 [facility] [address] [place] [address] Aishwarya Deluca, PT [place] Discharge Disposition: Discharged to home or Selfcare 01/19/2025 8:40 AM CDT Office Visit [facility] Family [facility] #2 [place] [address] Kasey Williamson DO 2 [facility] [address] [place] [address] documented as of this encounter Visit Diagnoses [...] as of this encounter Care Teams System Operator Relationship Specialty Start Date End Date Vaughn Bradshaw MD PCP - General Family Medicine 05/18/18 08/26/23 Kasey Williamson DO 2 [facility] [address] [place] [address] PCP - General Family Medicine 09/14/23 Claudia Horn, NETWORK SYSTEMS INTEGRATOR [address] [place] [address] Advanced Practice Nurse 08/16/18 Vicenta Raymond DO [address] [place] [address] Consulting Physician Obstetrics & Gynecology 09/25/21 Gus Chowdary MD #2 [facility] [address] [place] [address] Consulting Physician Colon and Rectal Surgery 07/23/22 Virginie Reyes, RN [place] Nurse Personnel Scheduler 09/14/23 09/14/23 Virginie Reyes, RN [place] Nurse Personnel Scheduler 11/19/23 11/29/23 Virginie Reyes, RN [place] Nurse Personnel Scheduler 12/07/23 05/15/24 Kelley Lopez, NETWORK SYSTEMS INTEGRATOR, VEST FRONT PRESSER #2 [facility] [address] [place] [address] Nurse Practitioner Advanced Practice Nurse 12/09/23 02/22/24 Virginie Reyes, RN [place] Nurse Personnel Scheduler 11/16/24 11/16/24 documented as of this encounter
--- OUTSIDE RECORDS SUMMARY | 2025-01-05 17:22 | XMS_ITS | Encounter Summary ---
Author Organization [facility] Address [address] [place] [address] Phone Care Team Providers Care Slide Machine Tender Name Role Phone Vaughn Bradshaw MD Primary Care Provider [phone] Claudia Horn FOLDER MACHINE ADJUSTER Unavailable Vicenta Raymond DO Unavailable Gus Chowdary MD Unavailable Kasey Williamson DO Primary Care Provider [phone] Virginie Reyes RN Unavailable Unavailable Virginie Reyes RN Unavailable Unavailable Virginie Reyes RN Unavailable Unavailable Kelley Lopez FOLDER MACHINE ADJUSTER, MANAGER COMMUNITY Unavailable [phone] Virginie Reyes RN Unavailable Unavailable Reason for Visit * Reason Onset Date Comments Cough 04/10/2021 Encounter Details Date Type Department Care Team (Late st Contact Info) Description 04/10/2021 Nurse Triage [facility] [address] [place] [address] Vaughn Bradshaw MD [address] [place] [address] Cough Social History Tobacco Use Types Packs/Day [...] Coronavirus / COVID-19? Yes 03/31/2021 8:02 AM SQUIRREL MAN documented as of this encounter Miscellaneous Notes * Telephone Encounter - Kaia Rodas RN - 04/11/2021 8:45 AM CST SHIRA Thank You, Kaia RN RREL MAN * Telephone Encounter - Kaia Rodas RN [...] causes Protocols used: CORONAVIRUS (COVID-19) DIAGNOSED OR [id number] RREL MAN * Telephone Encounter - Kaia Rodas RN - 04/10/2021 9:42 AM CSTFrom: Ngozi Nascimento To: Dr. Soledad Bradshaw Sent: 04/10/2021 9:09 AM SQUIRREL MAN Subject: Possible covid pneumonia What should I do? I am having major coughing spells throughout the day. I woke up feeling like I have a ton of crap in my chest. Back is raw from coughing. Chest hurts from coughing. Could it be pneumonia? Should I go to ER or what. I feel horrible. RREL MAN documented in this encounter Plan of Treatment Upcoming Encounters Date Type Department Care Team (Late st Contact Info) Description 01/10/2025 8:45 AM CDT Physical Therapy [facility] [address] [facility], [place] [address] [place] [address] Monae Jorgensen, FOLDER MACHINE ADJUSTER, MANAGER COMMUNITY [address] [facility] [address] [place] [address] Aishwarya Deluca, PT [place] Discharge Disposition: Discharged to home or Selfcare 01/19/2025 8:40 AM CDT Office Visit [facility] [address] [place] [address] Kasey Williamson, DO 2 [facility]. [address] [place] [address] documented as of this encounter Visit Diagnoses Not on filedocumented in this encounter Additional Health Concerns Infection Onset Date Last Indicated Resolved Time COVID - 19 Confirmed 03/31/2021 03/31/2021 022 12:16 AM SQUIRREL MAN COVID - 19 01/14/2022 01/14/202201/15/2022 7:59 AM CDT Respiratory Rule-Out 01/14/2022 01/14/2022 022 8:08 AM CDT COVID - 19 11/15/2023 11/15/2023 11/15/2023 11:4 7 PM CDT VRE 08/18/2024 08/18/2024 Assessment Noted Time PHQ-9 Depression Total Score: 0 10/04/19 21 9:00 AM CDT documented as of this encounter Care Teams Slide Machine Tender Relationship Specialty Start Date End Date Vaughn Bradshaw MD PCP - General Family Medicine 05/18/18 08/26/23 Kasey Williamson DO 2 [facility] [address] [place] [address] PCP - General Family Medicine 09/14/23 Claudia Horn APRN [address] [place] [address] Advanced Practice Nurse 08/16/18 Vicenta Raymond DO [employer] [address] [address] Consulting Physician Obstetrics & Gynecology 09/25/21 Gus Chowdary MD #2 [facility] [address] [place] [address] Consulting Physician Colon and Rectal Surgery 07/23/22 Virginie Reyes, FAYE [place] Nurse Branch Logistics Supervisor 09/14/23 09/14/23 Virginie Reyes, RN [place] Nurse Branch Logistics Supervisor 11/19/23 11/29/23 Virginie Reyes, RN [place] Nurse Branch Logistics Supervisor 12/07/23 05/15/24 Kelley Lopez, FOLDER MACHINE ADJUSTER, MANAGER COMMUNITY [address] [facility], [address] [place] [address] Nurse Practitioner Advanced Practice Nurse 12/09/23 02/22/24 Virginie Reyes RN [place] Nurse Branch Logistics Supervisor 11/16/24 11/16/24 documented as of this encounter
--- OUTSIDE RECORDS SUMMARY | 2025-01-05 17:23 | XMS_ITS | Clinical Summary ---
Author Organization [facility] Address [address] [facility], [address] [address] Phone Care Team Providers Care Ichthyologist Name Role Phone Claudia Horn Nay DANIELS Unavailable [phone] Vicenta Raymond DO Unavailable [phone] Gus Chowdary MD Unavailable Kasey Williamson DO Primary Care Provider [phone] Allergies Active Allergy Reactions Criticality Noted Date Comments Trichophyton Runny Nose,Unknown High 11/21/2017 Coughing, watery eyes Nsaids Unknown 09/14/2023 Other Runny Nose Medium 05/16/2018 [facility] Water eyes Medications [place]-3 Fatty Acids (OMEGA 3 PO) Take by mouth in the morning and at bedtime. Active ferrous sulfate 325 (65 Fe) MG TabletIndications :Pancytopenia Take 1 Tablet by mouth daily. 30 Tablet 5 01/21/20 21 Active clotrimazole-beta methasone (LOTRISONE) 1-0.05 % Lotion APPLY TOPICALLY TO THE AFFECTED AREA TWICE DAILY NEEDED FOR RASH 05/08/19 23 Active azelastine (OPTIVAR) 0.05 % Solution INSTILL 1 DROP INTO BOTH EYES TWICE DAILY 18 mL 07/16/19 23 Active fexofenadine (Anabelle Allergy) 180 MG TabletIndications :Subacute maxillary sinusitis Take 1 Tablet by mouth daily. 90 Tablet 3 05/04/19 24 Active Melatonin 5 MG TabletIndications :Insomnia, unspecified type TAKE 1 TABLET BY MOUTH EVERY NIGHT 30 Tablet 09/15/19 24 Active EPINEPHrine (EpiPen 2-Harshil) 0.3 MG/0.3ML Solution Auto-injector 0.3 mL by Intramuscular route once as needed for Anaphylaxis. 1 mL 3 11/16/19 24 Active azelastine (ASTELIN) 0.1 % SolutionIndicatio ns:Subacute maxillary sinusitis 2 Sprays by Nasal route 2 times daily. Use in each nostril as directed 30 mL 2 05/03/19 25 Active Blood Glucose Monitoring Suppl (Accu-Chek Silvana Plus) w/Device Kit Use daily as directed. DX E11.9 1 Kit 07/11/19 25 Active Insulin Pen Needle (Sure Comfort Pen [place]) 31G X 8 MM MiscIndications:T ype 2 diabetes mellitus with hyperglycemia, with long-term current use of insulin USE FOUR TIMES DAILY DIRECTED 200 Pen Needle 3 07/15/19 25 Active Lancet Devices (Lancet Device with Ejector) [facility] Lancet pen to be used with lancets. 1 Each 07/20/19 25 Active insulin glargine (Lantus) 100 UNIT/ML Solution 25 Units by Subcutaneous route every morning. Active simvastatin (ZOCOR) 40 MG Tablet Take [...] Liver Disease 300 mL 08/20/19 25 Active Glucose Blood (Accu-Chek Guide Test) Strip Test 4-5 times per day 500 Strip 3 09/06/19 25 Active fluticasone (FLONASE) 50 MCG/ACT SuspensionIndicat ions:Seasonal allergies 1-2 Sprays by Nasal route daily. Use in each nostril as directed. 16 g 8 09/14/19 25 Active Ubrelvy 50 MG TabletIndications :Chronic migraine without aura without status migrainosus, not intractable TAKE 1 TABLET BY MOUTH AT ONSET OF HEADACHE. MAY REPEAT DOSE IN 2 HOURS IF NO RELIEF. MAX OF 2 TABLETS IN 24 HOURS 30 Tablet 10/07/19 25 Active cetirizine (ZyrTEC) 10 MG Tablet TAKE 1 TABLET BY MOUTH DAILY 30 Tablet 11 10/17/19 25 026 Active pramipexole (MIRAPEX) 0.5 MG TabletIndications :Restless leg syndrome Take 1 Tablet by mouth nightly. 45 Tablet 1 12/02/19 25 Active albuterol 108 (90 Base) MCG/ACT Aerosol Solution take 2 Puffs by inhalation every 4 hours as needed for Wheezing or Cough. 54 g 1 12/14/19 25 Active Alcohol Swabs PadsIndications:T ype 2 diabetes mellitus with hyperglycemia, with long-term current use of insulin Use one swab with each injection 100 Swab . 3 12/14/19 25 Active allopurinol (ZYLOPRIM) 300 MG Tablet Take 1 Tablet by mouth daily. 90 Tablet 1 12/14/19 25 Active busPIRone HCl 7.5 MG TabletIndications :Anxiety and depression Take 1 Tablet by mouth 2 times daily. 180 Tablet 1 12/14/19 25 Active cyanocobalamin 1000 MCG Tablet Take 1 Tablet by mouth daily. 90 Tablet 1 12/14/19 25 Active dicyclomine (BENTYL) 20 MG Tablet Take 1 Tablet by mouth 2 times daily. 120 Tablet 1 12/14/19 25 Active ergocalciferol (VITAMIN D) 76702 UNIT Capsule Take 1 Capsule by mouth once a week. 12 Capsule 12/14/19 25 Active fenofibrate micronized (LOFIBRA) 200 MG Capsule Take 1 Capsule by mouth daily. 90 Capsule 1 12/14/19 25 Active furosemide (LASIX) 40 MG Tablet Take 1 Tablet by mouth daily. 90 Tablet 1 12/14/19 25 Active levothyroxine (SYNTHROID) 50 MCG Tablet Take 1 Tablet by mouth daily. 90 Tablet 1 12/14/19 25 Active ondansetron (ZOFRAN-ODT) 4 MG TABLET DISPERSIBLE Take 1 Tablet by mouth every 6 hours as needed for Nausea - 1st line. 10 Tablet 12/14/19 25 Active carvedilol (COREG) 3.125 MG Tablet Take 3.125 mg by mouth 2 times daily. 11/29/19 25 026 Active Xifaxan 550 MG Tablet Take 550 mg by mouth 2 times daily. 12/09/19 25 Active semaglutide, 1 MG/DOSE, (OZEMPIC) 2 MG/1.5ML Solution Pen-injector 1 mg by Subcutaneous route once a week. 11/18/19 25 Active fenofibrate micronized (LOFIBRA) 200 MG Capsule Take 1 Capsule by mouth daily. 90 Capsule 06/25/19 22 025 Discontin ued(Reord er) nadolol (CORGARD) 20 MG TabletIndications :Essential hypertension TAKE 1 TABLET BY MOUTH DAILY 90 Tablet 2 06/25/19 23 025 Discontin ued(Med List Clean Up) traMADol (ULTRAM) 50 MG TabletIndications :Chronic left shoulder pain Take 1 Tablet by mouth every 6 hours as needed for Moderate or more severe pain. 120 Tablet 12/18/19 23 025 Discontin ued(Med List Clean Up) allopurinol (ZYLOPRIM) 300 MG Tablet Take 1 Tablet by mouth daily. 09/19/19 22 025 Discontin ued(Reord er) cyanocobalamin 1000 MCG Tablet Take 1 Tablet by mouth daily. 04/21/19 025 Discontin ued(Reord er) dicyclomine (BENTYL) 20 MG Tablet Take 1 Tablet by mouth 2 times daily. 02/07/20 21 025 Discontin ued(Reord er) ergocalciferol (VITAMIN D) 12261 UNIT Capsule Take 1 Capsule by mouth once a week. 12 Capsule 09/15/19 24 025 Discontin ued(Reord er) busPIRone HCl 7.5 MG TabletIndications :Anxiety and depression Take 1 Tablet by mouth 2 times daily. 180 Tablet 2 04/21/19 25 025 Discontin ued(Reord er) albuterol 108 (90 Base) MCG/ACT Aerosol Solution INHALE 2 PUFFS BY MOUTH EVERY 4 HOURS NEEDED FOR WHEEZING OR COUGH 54 g 1 04/27/19 25 025 Discontin ued(Reord er) levothyroxine (SYNTHROID) 50 MCG Tablet Take 1 Tablet by mouth daily. 90 Tablet 1 06/14/19 25 025 Discontin ued(Reord er) Alcohol Swabs PadsIndications:T ype 2 diabetes mellitus with hyperglycemia, with long-term current use of insulin Use one swab with each injection 100 Swab . 3 07/11/19 25 025 Discontin ued(Reord er) ondansetron (ZOFRAN-ODT) 4 MG TABLET DISPERSIBLE Take 1 Tablet by mouth every 6 hours as needed for Nausea - 1st line. 10 Tablet 07/28/19 25 025 Discontin ued(Reord er) furosemide (LASIX) 40 MG Tablet Take 1 Tablet by mouth daily. 90 Tablet 07/28/19 25 025 Discontin ued(Reord er) Active Problems Problem Noted Date Diagnosed Date Hypertensive urgency 07/26/2024 TATYANA (acute kidney injury) 07/25/2024 Mitral stenosis 11/18/2023 Morbid obesity 01/14/2022 Postmenopausal bleeding 09/04/2021 Overview (11/04/2021): Added automatically from request for surgery [id number] Need for influenza vaccination 01/30/2019 Hypertension 05/18/2018 Hyperlipidemia 05/18/2018 Hypothyroid 05/18/2018 Arthritis 05/18/2018 Thrombocytopenia due to hypersplenism 05/18/2018 Migraines 05/18/2018 Iron deficiency anemia due to chronic blood loss 12/10/2017 Pancytopenia 12/10/2017 Splenomegaly 12/10/2017 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 12/10/2017 Diabetes mellitus 03/22/2003 Depression Resolved Problems Problem Noted Date Diagnosed Date Resolved Date Hepatic encephalopathy 08/18/202408/19 Chest pain in adult 11/16/2023 11/18/19 Hepatic encephalopathy 01/14/202212/07 Acute cystitis 01/14/2022 12/07/2022 High blood sugar 05/23/2018 01/30/2019 Encounter for immunization 05/18/2018 1 04/01/2018 Acute non-recurrent maxillary sinusitis 05/18/2018 01/30/2019 Encounters Date Type Department Care Team Description 01/03/2025 7:30 AM CDT - 01/03/2025 11:59 PM CDT [facility] [address] [place] [address] Jorge Tran MD Discharge Disposition: Discharged to home or Selfcare 01/02/2025 1:58 PM CDT - 01/02/2025 11:59 PM CDT Hospital Encounter [facility] Radiology Resources [address] [place] [address] Provider, Not On File Discharge Disposition: Discharged to home or Selfcare 01/02/2025 1:57 PM CDT Hospital Encounter [facility] [address] [place] [address] Provider, Not On File Discharge Disposition: Discharged to home or Selfcare 01/02/2025 1:55 PM CDT - 01/02/2025 1:56 PM CDT Hospital [facility]counter [facility] [address] [place] [address] Provider, Not On File Discharge Disposition: Discharged to home or Selfcare 01/02/2025 6:42 AM CDT - 01/02/2025 1:54 PM CDT Hospital Encounter [facility] Mammography [address] [place] [address] Kasey Williamson DO Discharge Disposition: Discharged to home or Selfcare 01/01/2025 Travel 12/31/2024 Travel 12/20/2024 Transcribe Orders [facility] Central Scheduling [address] [place] [phone] Jorge Tran MD 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 (Primary Dx) 12/19/2024 10:45 AM CDT Office Visit [facility] [address] [place] [phone] Monae Jorgensen, SUPERVISOR FUR FLOOR WORKER, LACING CUTTER Chronic bilateral low back pain without sciatica (Primary Dx); BMI 40.0-44.9, adult (HCC); Type 2 diabetes mellitus with hyperglycemia, with long-term current use of insulin (HCC) Discharge Disposition: Discharged to home or Selfcare 12/18/2024 Travel 12/11/2024 Refill [facility] [address] [place] [phone] Kasey Williamson, Medication Refill 11/30/2024 MyChart RX Renewal [facility] Recovery Room Rn Management [address] [place] [address] Kasey Williamson DO Medication Renewal Reviewed 11/16/2024 Patient Outreach [facility] Recovery Room Rn Management [address] [place] [address] Virginie Reyes, RN Patient Outreach ([employer] High Risk ) 10/23/2024 Results Follow-Up [facility] [address] [place] [phone] Kasey Williamson DO CMP (COMPREHENSIVE METABOLIC PANEL), LIPID PANEL, MAGNESIUM (MG), Additional followed-up results: 6 10/19/2024 11:00 AM CDT Lab [facility] [address] [phone] [facility] [place] Lab/Ancillary Encounter for screening mammogram for breast cancer; Type 2 diabetes mellitus with hyperglycemia, with long-term current use of insulin (HCC); Primary hypertension; 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 (HCC); Anemia, unspecified type; Thrombocytopenia (HCC); Hypothyroidism, unspecified type; Morbid obesity (HCC); Chronic kidney disease, unspecified CKD stage Discharge Disposition: Discharged to home or Selfcare 10/19/2024 10:00 AM CDT Office Visit [facility] [address] [place] [address] Kasey Williamson, Type 2 diabetes mellitus with hyperglycemia, with long-term current use of insulin (HCC) (Primary Dx); Encounter for screening mammogram for breast cancer; Primary hypertension; 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 (HCC); Anemia, unspecified type; Thrombocytopenia (HCC); Hypothyroidism, unspecified type; Morbid obesity (HCC); Chronic kidney disease, unspecified CKD stage; Dysuria Discharge Disposition: Discharged to home or Selfcare 10/17/2024 Travel 10/16/2024 [facility] [place] [address] Vaughn Bradshaw MD Medication Refill 10/05/2024 [facility] [place] [address] Imer Remy APRN, LACING CUTTER Medication Refill from Last 3 Months Immunizations Immunization Administration Dates Next Due Covid-19, Mrna, Lnp-s, PF, 1 00 mcg/0.5 mL Dose (Moderna) 11/16/2020,10/19/2020 Hepatitis A And Hepatitis B Vaccine 02/17/2018 Influenza Vaccine, Quadrivalent, PF 11/20,02/03/2022,01/20/2021,01/30 Influenza, Injectable, Mdck,quadrivalent,with Preservative 02/17/2018 Influenza,Split Virus,Trivalent,Injectable,PF 12/19/2024,03/05/2024 Pneumococcal Vaccine Adult - 23 Valent 8 Pneumococcal conjugate PCV20 , polysaccharide [id number] conjugate, adjuvant, PF 12/07/2022 TDAP Vaccine 05/18/2018 Family History Medical History Relation Name Comments No Known Problems Brother 1 Thyroid Disease Brother 2 Barron Half broth . Has cancer Alcohol Abuse Father Barron Cancer Father Barron He had cancer i n his nose, lips, and pallet Diabetes Father Barron Heart Attack Father Barron Put in pacemake r. Stroke and heart attack. Plus cancer in his palket, nose and lip Migraines Father Barron Pacemaker Father Barron Seizures Father Barron Stroke Father Barron Diabetes Maternal Aunt 1 Pari Lost toes on both feet Diabetes Maternal Aunt 2 Kait Cancer Maternal Grandfather Leukemi a Diabetes Maternal Grandmother Mary Ellen Lost 1 leg to the knee Diabetes Maternal Uncle 1 Shawn Diabetes Maternal Uncle 2 Osiel Lost both l egs to the knees Diabetes Maternal Uncle 3 Mohan Lost both l egs Heart Attack Mother Mimi Massive at 47 Hypertension Mother Mimi Sudden Cardiac Mother Mimi Cancer Paternal Aunt 1 Patricia Ovarian Uterine Cancer Paternal Aunt 1 Patricia withi n a week of finding out. Ovarian Cancer Paternal Aunt 2 Miya Found too late 3 weeks after found Heart Attack Paternal Grandfather Cancer Paternal Grandmother Prerna More ca ncer then they named Thyroid Disease Sister Pam Has heart va lve issues Relation Name Status Comments Brother 1 Alive Brother 2 Barron Alive Father Barron Maternal Aunt 1 Pari Alive Maternal Aunt 2 Kait Alive Maternal Grandfather Maternal Grandmother Mary Ellen Maternal Uncle 1 Shawn Alive Maternal Uncle 2 Osiel Alive Maternal Uncle 3 Mohan Alive Mother Mimi Paternal Aunt 1 Patricia Paternal Aunt 2 Miya Alive Paternal Grandfather Paternal Grandmother Prerna Sister Pam Alive Social History Tobacco Use Types Packs/Day Years Used Date Smoking Tobacco: Never Smokeless Tobacco: Never Tobacco Cessation:Counseling Given: No Alcohol Use Standard Drinks/Week Comments No 0 (1 standard drink = 0.6 oz pur e alcohol) [facility] Utilities Answer Date Recorded In the past 12 months has [facility], gas, oil, or water [employer] threatened to shut off services in your [...] do you attend [facility] or [facility] services? Never 08/18/2024 Do you belong to any clubs o r organizations such as christian groups, unions, fraternal or athletic groups, or [...] Total Score - Questions 1-9 0 11/22 [facility] - [...] in a residential (including now)? No 08/04/2023 Housing Stability Vital [...] in the past 12 m [facility], were you homeless or living in a residential (including now)? No 08/18/2024 Education Answer Date [...] Sign Reading Time Taken Comments Blood Pressure 136/74 12/19/2024 11:14 AM CDT Pulse 71 12/19/2024 11:14 AM CDT Temperature 36.8 C (98.2 F) 12/19/2024 11:14 AM CDT Respiratory Rate 16 12/19/2024 11:14 AM CDT Oxygen Saturation 99% 12/19/2024 11:14 AM CDT Inhaled Oxygen Concentration - - Weight 103.4 kg (228 lb) 12/19/2024 11:14 AM CDT Height 154.9 cm (5' 1) 12/19/2024 11:14 AM CDT Body Mass Index 43.08 12/19/2024 11:14 AM CDT Plan of Treatment Upcoming Encounters Date Type Department Care Team (Late st Contact Info) Description 01/10/2025 8:45 AM CDT Physical Therapy [facility] [address] [place] [address] Monae Jorgensen, SUPERVISOR FUR FLOOR WORKER, LACING CUTTER [address] [facility] [address] [place] [address] Aishwarya Deluca, [place] Discharge Disposition: Discharged to home or Selfcare 01/19/2025 8:40 AM CDT Office Visit [facility] [place] [address] [place] [address] Kasey Williamson, DO 2 [facility]. [address] [place] [address] Health Maintenance Due Date Last Done Comments Medicare Initial AWV [id number] 10/20/2005 Cologuard 10/01/2008 Immunochemical Fecal Occult Blood 10/01/2008 Colonoscopy 01/11/2021 01/11/2018, 11/24/2016 Colorectal Cancer Screening 01/11/2021 Diabetes: Hemoglobin A1c 03/28/2025 025, 07/18/2024, 06/07/2024, Additional history exists Respiratory Syncytial Virus (RSV) Immunization (Adult) (1 - Risk 60-74 years 1-dose series) 05/24/2025 Postponed from 2023 (Patient Temporarily Declines) Diabetes: Eye Exam 09/12/2025 09/12/2024, 12/22/2022, 09/04/2021, Additional history exists Diabetes: Foot Exam 10/19/2025 10/19/2024, 08/06/2022, 08/06/2022, Additional history exists Diabetes: Nephropathy Screening 10/19/2025 10/19/2024, 10/19/2024, 08/19/2024, Additional history exists Mammogram 01/02/2026 01/02/2025, 07/29/2023, 07/29/2023, Additional history exists Td Immunization Every 10 Years (Adults With 1 Tdap) 05/18/2028 05/18/2018 Hepatitis C Virus (HCV) Screening Completed 12/10/2017 Hepatitis B Immunization Discontinued 02/17/2018 SARS-COV-2 Immunization Discontinued 05/17/19 22, 11/16/2020, 10/19/2020 Pneumococcal Immunization (50+ years) Completed 12/07/2022, 02/17/2018 Pneumococcal Immunization Combined Discontinued 12/07/2022, 02/17/2018 Influenza Immunization Completed , 03/05/2024, 12/07/2022, Additional history exists Human Papillomavirus (HPV) Immunization Aged Out No longer eligible based on patient's age to complete this topic Meningococcal Immunization (ACWY) Aged Out No longer eligible based on patient's age to complete this topic Rotavirus Immunization Aged Out No lo nger eligible based on patient's age to complete this topic Zoster Immunization Discontinued Procedures Procedure Name Priority Date/Time Associated Diagnosis Comments US ABDOMEN LIMITED LEVEL 3 THREE ORGAN Routine 01/03/2025 8:02 AM CDT 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 [facility] US REFERENCE IMAGES FOR IMAGE IMPORT Routine 01/02/2025 1:58 PM CDT [facility] REFERENCE IMAGES FOR IMAGE IMPORT Routine 01/02/2025 1:57 PM CDT [facility] REFERENCE IMAGES FOR IMAGE IMPORT Routine 01/02/2025 1:55 PM CDT [facility] SCREENING BILATERAL DIGITAL W CAD W EDMOND Routine 01/02/2025 7:08 AM CDT Encounter for screening mammogram for breast cancer UR MICROALBUMIN/CREATIN INE RATIO RANDOM Routine 10/19/2024 11:08 AM CDT Chronic kidney disease, unspecified CKD stage CBC WITH AUTO DIFFERENTIAL Routine 10/19/2024 11:02 AM CDT Encounter for screening mammogram for breast cancer Type 2 diabetes mellitus with hyperglycemia, with long-term current use of insulin (HCC) Primary hypertension 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 (HCC) Anemia, unspecified type Thrombocytopenia (HCC) Hypothyroidism, unspecified type Morbid obesity (HCC) Chronic kidney disease, unspecified CKD stage VITAMIN D, 25 HYDROXY TOTAL Routine 10/19/2024 11:02 AM CDT Encounter for screening mammogram for breast cancer Type 2 diabetes mellitus with hyperglycemia, with long-term current use of insulin (HCC) Primary hypertension 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 (HCC) Anemia, unspecified type Thrombocytopenia (HCC) Hypothyroidism, unspecified type Morbid obesity (HCC) Chronic kidney disease, unspecified CKD stage VITAMIN B12 Routine 10/19/2024 11:02 AM CDT Encounter for screening mammogram for breast cancer Type 2 diabetes mellitus with hyperglycemia, with long-term current use of insulin (HCC) Primary hypertension 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 (HCC) Anemia, unspecified type Thrombocytopenia (HCC) Hypothyroidism, unspecified type Morbid obesity (HCC) Chronic kidney disease, unspecified CKD stage IRON,TRANSFERN,CALC. TIBC,%SAT Routine 10/19/2024 11:02 AM CDT Encounter for screening mammogram for breast cancer Type 2 diabetes mellitus with hyperglycemia, with long-term current use of insulin (HCC) Primary hypertension 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 (HCC) Anemia, unspecified type Thrombocytopenia (HCC) Hypothyroidism, unspecified type Morbid obesity (HCC) Chronic kidney disease, unspecified CKD stage MAGNESIUM (MG) Routine 10/19/2024 11:02 AM CDT Encounter for screening mammogram for breast cancer Type 2 diabetes mellitus with hyperglycemia, with long-term current use of insulin (HCC) Primary hypertension Liver cirrhosis secondary to NASCIMENOT (HCC) Anemia, unspecified type Thrombocytopenia (HCC) Hypothyroidism, unspecified type Morbid obesity (HCC) Chronic kidney disease, unspecified CKD stage LIPID PANEL Routine 10/19/2024 11:02 AM CDT Encounter for screening mammogram for breast cancer Type 2 diabetes mellitus with hyperglycemia, with long-term current use of insulin (HCC) Primary hypertension 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 (HCC) Anemia, unspecified type Thrombocytopenia (HCC) Hypothyroidism, unspecified type Morbid obesity (HCC) Chronic kidney disease, unspecified CKD stage CMP (COMPREHENSIVE METABOLIC PANEL) Routine 10/19/2024 11:02 AM CDT Encounter for screening mammogram for breast cancer Type 2 diabetes mellitus with hyperglycemia, with long-term current use of insulin (HCC) Primary hypertension 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 (HCC) Anemia, unspecified type Thrombocytopenia (HCC) Hypothyroidism, unspecified type Morbid obesity (HCC) Chronic kidney disease, unspecified CKD stage COMPLETE BLOOD COUNT (CBC) WITH DIFF Routine 10/19/2024 11:02 AM CDT Encounter for screening mammogram for breast cancer Type 2 diabetes mellitus with hyperglycemia, with long-term current use of insulin (HCC) Primary hypertension 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 us Jorge Tran MD [facility] [place] ORDERABLES Final Resul t * [facility] US REFERENCE IMAGES FOR IMAGE IMPORT (01/02/2025 1:58 PM CDT) us Not On File Provider [facility] [place]AMMO ORDERABLES Final Result * [facility] REFERENCE IMAGES FOR IMAGE IMPORT (01/02/2025 1:57 PM CDT) Only the most recent of2 resultswithin the time period is included. us Not On File Provider [facility] [place]AMMO [place] Final Result * [facility] SCREENING BILATERAL DIGITAL W CAD W EDMOND (01/02/2025 7:08 AM CDT) Anatomical Region Laterality Modality breast Bilateral Mammography 01/02/2025 6:48 AM CDT Impressions 01/02/2025 8:02 PM CDT IMPRESSION: There is no mammographic evidence of malignancy. RECOMMENDATION: Annual screening mammography. BI-RADS 1: Negative. Narrative 01/02/2025 8:02 PM CDT [facility] SCREENING BILATERAL DIGITAL W CAD W EDMOND EXAM DATE: 01/02/2025 7:00 AM HISTORY: 59 years year old Female. Encounter for screening mammogram for malignant neoplasm of breast TECHNIQUE: Standard bilateral mammographic views were obtained. Additional 3D tomographic mammography was also obtained. Current study was also evaluated with a Computer Aided Detection (CAD) system. COMPARISON: Comparison made with previous examination(s) dated (MG) 29-Jul-2023,([place]) 05-Sep-2021,([place]) 05-Sep-2021. FINDINGS: There are scattered areas of fibroglandular density. (Category B) No suspicious masses, calcifications, architectural distortion or other findings. us Kasey Williamson DO IMG MAMMO ORDERABLES Final Re sult * (ABNORMAL) UR MICROALBUMIN/CREATININE RATIO RANDOM (10/19/2024 11:08 AM CDT) RAN UR MICROALBUMIN 3.40 mg/dL 10/19/2024 12:35 PM CDT [facility] Comment:No reference range h as been established. Consider Clinical Correlation. CREATININE URINE 24.2 mg/dL 10/20/19 12:35 PM CDT [facility] Comment:No reference range h as been established. Consider Clinical Correlation. ALB/CREAT RATIO 140(H) 0 - 30 mg/g CRE 10/19/2024 12:35 PM CDT [facility] Urine Non-Phlebotomy Collection / Unknown 10/19/2024 11:08 AM CDT 10/19/2024 11:08 AM CDT us Kasey Williamson DO URINE ORDERABLES Final Result [facility] [place] [address] * VITAMIN D, 25 HYDROXY TOTAL (10/19/2024 11:02 AM CDT) VITAMIN D, 25 HYDROX 23.0 ng/mL 10/19/2024 1:05 PM CDT [facility] Blood Venipuncture / Unknown 10/19/2024 11:02 AM CDT 10/19/2024 11:02 AM CDT Narrative [facility] - 10/19/2024 1:05 PM CDT Published reference ranges for Vitamin D vary depending on time and place and method of testing, and on patient's age, sex, ethnicity and levels of other measured analytes such as parathormone, calcium and phosphorus. The result should be evaluated in conjunction with clinical findings and suspicions. [employer] of [employer] and Endocrine Clinical Practice Guidelines: Status Vitamin D levels (ng/mL) Deficient <=20 At risk of inadequacy 21-29 Sufficient 30-100 Centers of Disease Control and Prevention Guidelines: Status Vitamin D levels (ng/mL) Deficient <13 At risk of inadequacy 13-19 Sufficient 20-50 Possibly harmful >50 References: [employer], 2010 Dietary reference intakes for calcium and vitamin D. [place]: The National Academies Press. Shamar M, Steve N, Hallie CASTELLANO, et al., Evaluation, treatment, and prevention of Vitamin D deficiency: an Endocrinology Clinical Practice Guideline. JCEM 2011 96: 7 6933-7812. Mehnaz A, Eloy C, Tushar D, et al., Vitamin D Status: [place], 5872-9733, [facility] data brief, no. 59, [place]: National Center for Health Statistics. 2010. us Kasey Williamson DO CHEMISTRY ORDERABLES Final Re sult [facility] [place] [address] * (ABNORMAL) IRON,TRANSFERN,CALC.TIBC,%SAT (10/19/2024 11:02 AM CDT) IRON 205(H) 25 - 156 mcg/dL 10/19/2024 12:40 PM CDT [facility] TRANSFERRIN 289 173 - 360 mg/dL 10/19/2024 12:40 PM CDT [facility] TIBC, CALCULATED 361 265 - 497 mcg/dL 10/19/2024 12:40 PM CDT [facility] % SATURATION * 57 15 - 62 % 10/19/2024 12:40 PM CDT [facility] Blood Venipuncture / Unknown 10/19/2024 11:02 AM CDT 10/19/2024 11:02 AM CDT us Kasey Williamson DO CHEMISTRY ORDERABLES Final Re sult [facility] [place] [address] * (ABNORMAL) CBC WITH AUTO DIFFERENTIAL (10/19/2024 11:02 AM CDT) WBC 1.99(L) 4.00 - 12.00 10(3)/mcL 10/19/2024 12:59 PM CDT [facility] RBC 3.49(L) 3.80 - 5.30 10(6)/[facility] 10/19/2024 12:59 PM CDT [facility] HEMOGLOBIN (HGB) 9.8(L) 12.0 - 15.8 g/dL 10/19/2024 12:59 PM CDT [facility] HEMATOCRIT (HCT) 31.4(L) 36.0 - 47.0 % 10/19/2024 12:59 PM CDT [facility] MCV 90.0 82.0 - 96.0 fL 10/19/2024 12:59 PM CDT [facility] MCH 28.1 26.0 - 34.0 pg 10/19/2024 12:59 PM CDT [facility] MCHC 31.2 31.0 - 36.0 g/dL 10/19/2024 12:59 PM CDT [facility] PLATELET COUNT 40(L) 140 - 440 10(3)/mcL 10/19/2024 12:59 PM CDT [facility] RDW 15.8(H) 11.8 - 15.5 % 10/19/2024 12:59 PM CDT [facility] MPV 10.6 9.7 - 12.4 fL 10/19/2024 12:59 PM CDT [facility] NEUTROPHILS 51.3 47.0 - 73.0 % 10/19/2024 12:59 PM CDT [facility] LYMPHOCYTES 25.1 18.0 - 42.0 % 10/19/2024 12:59 PM CDT [facility] MONOCYTES 18.1(H) 4.0 - 12.0 % 10/19/2024 12:59 PM CDT [facility] EOSINOPHILS 4.5 0.0 - 5.0 % 10/19/2024 12:59 PM CDT [facility] BASOPHILS 0.5 0.0 - 1.0 % 10/19/2024 12:59 PM CDT [facility] IMMATURE GRANULOCYTE 0.5(H) 0.0 - 0.4 % 10/19/2024 12:59 PM CDT [facility] Comment:Immature Granulocyte s includes Metamyelocytes, Myelocytes, and Promyelocytes. ABSOLUTE NEUTROPHILS 1.02(L) 1.60 - 7.70 10(3)/mcL 10/19/2024 12:59 PM CDT [facility] ABSOLUTE LYMPHOCYTES 0.50(L) 1.30 - 3.20 10(3)/mcL 10/19/2024 12:59 PM CDT [facility] ABSOLUTE MONOCYTES 0.36 0.20 - 1.00 10(3)/[facility] 10/19/2024 12:59 PM CDT [facility] ABSOLUTE EOSINOPHIL 0.09 0.00 - 0.40 10(3)/mcL 10/19/2024 12:59 PM CDT [facility] ABSOLUTE BASOPHILS 0.01 0.00 - 0.10 10(3)/[facility] 10/19/2024 12:59 PM CDT [facility] ABSOLUTE IMMATURE GRANULOCYTE 0.01 0.00 - 0.03 10 (3) mcL. 10/19/2024 12:59 PM CDT [facility] NRBC PER 100 WBC 0 10/20/19 12:59 PM CDT [facility] RESULTS ARE CONSISTENT WITH PERIPHERAL SMEAR REVIEW Yes 10/19/2024 12:59 PM CDT [facility] Blood Venipuncture / Unknown 10/19/2024 11:02 AM CDT 10/19/2024 11:02 AM CDT us Kasey L Clay DO HEMATOLOGY ORDERABLES Final R esult [facility] [place] [address] * (ABNORMAL) VITAMIN B12 (10/19/2024 11:02 AM CDT) VITAMIN B12 1,406(H) 213 - 816 pg/mL 10/19/2024 1:05 PM CDT [facility] Blood Venipuncture / Unknown 10/19/2024 11:02 AM CDT 10/19/2024 11:02 AM CDT us Kasey L Clay DO CHEMISTRY ORDERABLES Final Re sult Performing Organization Address City/[facility]/ZIP Co de Phone Number [facility] [place] [address] * MAGNESIUM (MG) (10/19/2024 11:02 AM CDT) MAGNESIUM 1.8 1.6 - 2.6 mg/dL 10/19/2024 12:40 PM CDT [facility] Blood Venipuncture / Unknown 10/19/2024 11:02 AM CDT 10/19/2024 11:02 AM CDT us Kasey L Clay DO CHEMISTRY ORDERABLES Final Re sult Performing Organization Address City/[facility]/ZIP Co de Phone Number [facility] [place] [address] * (ABNORMAL) LIPID PANEL (10/19/2024 11:02 AM CDT) CHOLESTEROL 177 <200 mg/dL 10/19/2024 12:40 PM CDT [facility] TRIGLYCERIDES 178(H) <150 mg/dL 10/19/2024 12:40 PM CDT [facility] HDL CHOLESTEROL 46 >40 mg/dL 12:40 PM CDT [facility] LDL 95 <130 mg/dL 10/19/2024 12:40 PM CDT [facility] VLDL 36 10 - 50 mg/dL 10/19/2024 12:40 PM CDT [facility] CHOL/HDL RATIO 3.8 0.0 - 4.4 10/19/2024 12:40 PM CDT [facility] NON-HDL CHOLESTEROL 131(H) <130 mg/dL 10/19/2024 12:40 PM CDT [facility] IS THE PATIENT REQUIRED TO BE FASTING? No 10/19/2024 12:40 PM CDT [facility] Blood Venipuncture / Unknown 10/19/2024 11:02 AM CDT 10/19/2024 11:02 AM CDT us Kasey Williamson DO CHEMISTRY ORDERABLES Final Re sult [facility] [place] [address] * (ABNORMAL) CMP (COMPREHENSIVE METABOLIC PANEL) (10/19/2024 11:02 AM CDT) SODIUM 143 136 - 145 mmol/L 10/19/2024 12:40 PM CDT [facility] POTASSIUM 3.9 3.5 - 5.1 mmol/L 10/19/2024 12:40 PM CDT [facility] CHLORIDE 109(H) 98 - 107 mmol/L 10/19/2024 12:40 PM CDT [facility] CO2, VENOUS 27 22 - 30 mmol/L 10/19/2024 12:40 PM CDT [facility] ANION GAP 10.9 <18.0 mmol/L 10/19/2024 12:40 PM CDT [facility] GLUCOSE 121(H) 70 - 99 mg/dL 10/19/2024 12:40 PM CDT [facility] BUN 22(H) 10 - 20 mg/dL 10/19/2024 12:40 PM T [facility] CREATININE, BLOOD 1.50(H) 0.60 - 1.00 mg/dL 10/19/2024 12:40 PM T [facility] BUN/CREATININE RATIO 15 12 - 20 ratio 10/19/2024 12:40 PM T [facility] TOTAL PROTEIN 7.2 6.0 - 8.0 g/dL 10/19/2024 12:40 PM T [facility] ALBUMIN 3.4(L) 3.5 - 5.0 g/dL 10/19/2024 12:40 PM T [facility] A/G RATIO 0.9(L) 1.0 - 2.2 10/19/2024 12:40 PM T [facility] CALCIUM 8.9 8.7 - 10.5 mg/dL 10/19/2024 12:40 PM T [facility] T BILI 0.7 0.2 - 1.2 mg/dL 10/19/2024 12:40 PM T [facility] SGOT (AST) 68(H) <43 U/L 10/19/2024 12:40 PM T [facility] SGPT (ALT) 45 <56 U/L 10/19/2024 12:40 PM T [facility] ALKALINE PHOSPHATASE 176(H) 40 - 150 U/L 10/19/2024 12:40 PM T [facility] IS THE PATIENT REQUIRED TO BE FASTING? No 10/19/2024 12:40 PM CDT [facility] GFR, ESTIMATED 39(L) >=60 10/19/2024 12:40 PM CDT [facility] Comment: Creatinine Clearance is the preferred criteria for selecting drug dose adjustments in renally impaired patients. The GFR is provided as additional pertinent clinical information. GFR is reported in mL/min/1.73 sq m. Calculation based on the Chronic Kidney Disease Epidemiology Collaboration (CKD- EPI) equation refit without adjustment for race. GFR, EST. 43(L) >=60 025 12:40 PM CDT [facility] GFR, EST. NONAFRICAN 35(L) >=60 10/19/2024 12:40 PM CDT [facility] Blood Venipuncture / Unknown 10/19/2024 11:02 AM CDT 10/19/2024 11:02 AM CDT us Kasey Williamson DO CHEMISTRY ORDERABLES Final Re sult Performing Organization Address City/[facility]/ZIP Co de Phone Number [facility] [place] [address] * HM DILATED EYE EXAM (09/12/2024 12:00 AM CDT) 09/12/2024 us Provider Scan PROCEDURE/MINOR SURGICAL ORDERAB LES Final Result Performing Organization Address City/[facility]/ZIP Co de Phone Number SCAN * (ABNORMAL) POCT GLYCOSYLATED HEMOGLOBIN (07/18/2024 9:35 AM CDT) HGB-A1C 9.9(A) 4 - 6 % Blood 07/18/2024 9:35 AM CDT us Vivian Tucker SUPERVISOR FUR FLOOR WORKER, LACING CUTTER POINT OF CARE TESTING (M ANUAL) Final Result * HEPATITIS C ANTIBODY (12/10/2017 9:23 AM CDT) hepatitis C antibody 0.49 <1 S/CO 12/10/2017 11:14 PM CDT [facility] Comment: Signal/Cutoff ratio < 0.79 is Nondetected Signal/Cutoff ratio 0.80-0.99 is Grayzone Signal/Cutoff ratio > 0.99 is Detected Supplemental assays are recommended if signal/cutoff ratio is >/=1.00. Signal/cutoff ratio result >/= 5.00 is 97% predictive of positivity for recombinant immunoblot assay (RIBA) and will be reported to the [place] Department of Public Health as required. 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 [address] [place] [address] PCP - General Family Medicine 09/14/23 Claudia Horn APRN [address] [place] [address] Advanced Practice Nurse 08/16/18 Vicenta Raymond DO [facility] [address] [place] [address] Consulting Physician Obstetrics & Gynecology 09/25/21 Gus Chowdary MD [address] [facility] [address] [place] [address] Consulting Physician Colon and Rectal Surgery 07/23/22
[2025-01-05 17:27] VITALS: BP 144/64; PULSE 82; RESP 18; TEMP 37.2; O2SAT 99
--- NOTE | 2025-01-05 17:55 | ED.URI ---
HPI - URI/Sore Throat General Chief Complaint: Headache Stated Complaint: Chest Congestion/Cough/Headache Time Seen by Provider: 01/05/25 17:49 Source: patient and RN notes reviewed Mode of arrival: ambulatory Limitations: no limitations History of Present Illness HPI Narrative: 59-year-old female presents today with a 3 day history of dry cough, chest congestion with headache that started today. She has tried Tylenol and her Ubrelvy without improvement. No history of asthma or COPD. Denies fever, sore throat, congestion rhinorrhea, GI symptoms. Related Data Home Medications ?Medication ?Instructions ?Recorded ?Confirmed ?Last Taken ?Type albuterol sulfate 90 mcg/actuation inhalation 06/27/24 Unknown History aerosol inhaler buspirone 7.5 mg tablet mg 06/27/24 Unknown History fluticasone propionate 50 intranasal 06/27/24 Unknown History mcg/actuation nasal spray,suspension insulin glargine 100 unit/mL (3 unit subcut 06/27/24 Unknown History mL) subcutaneous pen (Lantus Solostar U-100 Insulin) lactulose 10 gram/15 mL oral 06/27/24 Unknown History solution levothyroxine 50 mcg tablet mcg 06/27/24 Unknown History melatonin 5 mg tablet mg 06/27/24 Unknown History metformin 1,000 mg tablet mg 06/27/24 Unknown History nadolol 20 mg tablet mg 06/27/24 Unknown History pantoprazole 40 mg tablet,delayed mg PO 06/27/24 Unknown History release pramipexole 0.5 mg tablet mg 06/27/24 Unknown History rifaximin 550 mg tablet (Xifaxan) mg 06/27/24 Unknown History semaglutide 0.25 mg or 0.5 mg (2 mg subcut 06/27/24 Unknown History mg/3 mL) subcutaneous pen injector (Ozempic) epinephrine 0.3 mg/0.3 mL 10/01/24 Unknown History injection, auto-injector allopurinol 300 mg tablet mg 01/05/25 Unknown History carvedilol 3.125 mg tablet mg 01/05/25 Unknown History fenofibrate micronized 200 mg mg 01/05/25 Unknown History capsule furosemide 40 mg tablet mg 01/05/25 Unknown History insulin lispro 100 unit/mL subcut 01/05/25 Unknown History subcutaneous pen (Humalog KwikPen (U-100) Insulin) montelukast 10 mg tablet mg 01/05/25 Unknown History pen needle, diabetic 31 gauge x 01/05/25 01/05/25 Unknown History 08/04 (Droplet Pen Needle) semaglutide 1 mg/dose (4 mg/3 mL) mg subcut 01/05/25 Unknown History subcutaneous pen injector (Ozempic) Allergies Allergy/AdvReac Type Severity Reaction Status Date / Time hydrocodone Allergy Mild Rash Verified 01/05/25 17:19 tramadol Allergy Mild Rash Verified 01/05/25 17:19 NSAIDS (Non-Steroidal AdvReac Unknown Other Verified 01/05/25 17:51 Anti-Inflamma PMFSH Past Medical History Medical History Vitamin D deficiency Type 2 diabetes mellitus Thrombocytopenia Steatohepatitis Splenomegaly Restless legs syndrome Psoriasis Mixed hyperlipidemia Microcytic anemia Major depressive disorder, single episode, unspecified Lymphadenopathy Liver, cirrhosis, portal Hypomagnesemia Hyperuricemia Hyperlipidemia Hematuria Gallstones Family history of DC (myocardial infarction) Exocrine pancreatic insufficiency Essential (primary) hypertension Elevated liver enzymes Acute cystitis without hematuria Actinic keratosis (03/11/15) Family History Family History Mother Hypertension Grandparent Diabetes mellitus Sibling Family history of thyroid disease Other Asthma Cerebrovascular accident Depression Family history of arthritis Family history of heart disease in male family member before age 55 Social History Social History Smoking status: Never smoker Second hand tobacco smoke exposure: Yes Alcohol intake: current Comments At time of signature, I have reviewed and agree with nursing past medical, surgical, social and family history unless otherwise noted. Please see nursing chart for further information. There is no relevant family history pertinent to the presenting complaint Exam Narrative: GENERAL: Well-appearing, well-nourished, and in no acute distress. HEAD: Normocephalic, atraumatic. EYES: EOMI. No redness or drainage. Conjunctivae normal. ENT: Mucous membranes pink and moist. Nares clear. No rhinorrhea. TMs normal bilaterally. Throat normal. Uvula midline. NECK: Normal AROM. Supple. No lymphadenopathy. CHEST: No respiratory distress. Clear to auscultation. HEART: Regular rate and rhythm. No murmur appreciated. EXTREMITIES: Normal range of motion. No edema. SKIN: Warm, dry, no rash. Capillary refill normal. Normal skin turgor. NEURO: No focal deficits. Alert and oriented x3. Gait steady. PSYCH: Normal affect. No signs of depression or anxiety. Course Course Level of Care: Express Care Visit Vital Signs Vital signs: Vital Signs Temperature 99 F 01/05/25 17: Pulse Rate 82 01/05/25 17:27 Respiratory Rate 18 01/05/25 17:27 Blood Pressure 144/64 H 01/05/25 17: Pulse Oximetry 99 01/05/25 17:27 Oxygen Delivery Room Air 01/05/25 17: Temperature 99 F 01/05/25 17:27 Pulse Rate 82 01/05/25 17:27 Respiratory Rate 18 01/05/25 17:27 Blood Pressure 144/64 H 01/05/25 17:27 Pulse Oximetry 99 01/05/25 17:27 Oxygen Delivery Room Air 01/05/25 17:27 Reviewed MDM - URI/Sore Throat MDM Narrative Medical decision making narrative: 59-year-old female presents today with a 3 day history of dry cough, chest congestion with headache that started today. She has tried Tylenol and her Ubrelvy without improvement. Patient's exam is normal. COVID test normal. Symptoms likely viral in etiology. Discussed [id number] medication use and duration of illness. No prescription medications indicated at this time. Anticipatory guidance given. Vital signs stable Differential Diagnosis Differential diagnosis: Likely upper respiratory infection, viral infection, bronchitis and other (COVID-19, pneumonia) Lab Data Attestation: I reviewed the patient's lab results. Lab results narrative: COVID-19 negative. Critical Care Time Critical Care Time Critical Care Time: No Discharge Plan Discharge Clinical Impression: Acute lower respiratory infection Patient Disposition: Home Condition: Stable Instructions: Viral Syndrome (ED) Additional Instructions: Your COVID-19 test is negative today. Your symptoms are likely due to a viral illness, which is not treated with antibiotics. Virus symptoms can last for up to 7-10days. Take Tylenol for pain or fever. Consider Mucinex to help break up your chest congestion, if able. Rest and stay hydrated. Follow up with your PCP in 7 days if symptoms are not improving. Go to the ER immediately if you develop shortness of breath, difficulty swallowing, or any other concerning symptoms. Patient Language: Malagasy Prescriptions: No Action epinephrine 0.3 mg/0.3 mL auto-injector pramipexole 0.5 mg tablet nadolol 20 mg tablet levothyroxine 50 mcg tablet pantoprazole 40 mg tablet,delayed release (DR/EC) PO metformin 1,000 mg tablet buspirone 7.5 mg tablet albuterol sulfate 90 mcg/actuation HFA aerosol inhaler INHALATION fluticasone propionate 50 mcg/actuation spray,suspension INTRANASAL lactulose 10 gram/15 mL solution insulin glargine [Lantus Solostar U-100 Insulin] 100 unit/mL (3 mL) insulin pen SUBCUT melatonin 5 mg tablet Xifaxan 550 mg tablet Ozempic 0.25 mg or 0.5 mg (2 mg/3 mL) pen injector SUBCUT furosemide 40 mg tablet fenofibrate micronized 200 mg capsule carvedilol 3.125 mg tablet montelukast 10 mg tablet allopurinol 300 mg tablet insulin lispro [Humalog KwikPen Insulin] 100 unit/mL insulin pen SUBCUT (DME) pen needle, diabetic [Droplet Pen Needle] 31 gauge x 5/16 needle MISCELLANEOUS Ozempic 1 mg/dose (4 mg/3 mL) pen injector SUBCUT Follow-up/Referrals: PHYSICIAN NOT ON STAFF,NONSTAFF [Primary Care Provider] Time of Disposition: 18:24
[2025-01-05 18:19] LABS: EDCOVIDSCREEN Negative (Negative)
== END 2025-01-05 18:36 | disposition home or self-care (01) ==
PROVIDERS: Emergency Provider Nurse Practitioner
DX: J22 Unspecified acute lower respiratory infection (principal); Z20.822 Contact with and (suspected) exposure to COVID-19; E11.9 Type 2 diabetes mellitus without complications; Z79.4 Long term (current) use of insulin; Z79.84 Long term (current) use of oral hypoglycemic drugs; Z79.85 Long-term (current) use of injectable non-insulin antidiabetic drugs; I10 Essential (primary) hypertension; K74.69 Other cirrhosis of liver; E78.2 Mixed hyperlipidemia; G25.81 Restless legs syndrome; L40.9 Psoriasis, unspecified; F32.9 Major depressive disorder, single episode, unspecified
CPT/HCPCS: 87426; 99212; G0463